=== PATIENT | male | born 1945 | race Caucasian/White ===

== ENCOUNTER → 2016-12-21 | Outpatient (CLI) | payer MEDICARE ==
--- NOTE | 2016-12-21 12:33 | CTL ---
EXAMINATION TYPE: CT Low Dose Lung DATE OF EXAM ORDERED: 12/21/2016 HISTORY: Tobacco use. Lung cancer screening CT DLP: [address] CTDI: 2.75 mGy Automated exposure control for dose reduction was used. SCREENING VISIT: Follow-up COMPARISON: 12/18/2015 TECHNIQUE: Low dose computed tomography scan was performed through the chest at 1 mm thick sections a nd reconstructed images in the coronal plane at [address] DIAGNOSTIC QUALITY: Limited, but interpretable FINDINGS: LUNG NODULES: None. LUNGS: COPD: Severity: None Fibrosis: Severity: None Lymph nodes: None Other findings: None RIGHT PLEURAL SPACE: Effusion: None Calcification: None Thickening: None Pneumothorax: None LEFT PLEURAL SPACE: Effusion: None Calcification: None Thickening: None Pneumothorax: None HEART: Heart Size: Normal Coronary calcification: Mild Pericardial effusion: None OTHER FINDINGS: Upper abdomen: Normal Bony thorax: Unremarkable Supraclavicular region: Unremarkable Other: The ascending thoracic aorta measures 3.5 cm. The main pulmonary artery at the bifurcation is 2.7 cm. IMPRESSION: No suspicious changes to suggest developing primary or metastatic lesions within the ches t. FOLLOW UP CT CHEST RECOMMENDATION: Screening lung CT per protocol CT LUNG RAD: Lung rad 1
== END | disposition home or self-care (01) ==
LOC: RADCTMAIN 11:32
PROVIDERS: ATTEND Family Medicine
DX: Z12.2 Encounter for screening for malignant neoplasm of respiratory organs (principal); F17.200 Nicotine dependence, unspecified, uncomplicated

== ENCOUNTER 2017-06-27 17:19 | Emergency (ER) | payer MEDICARE ==
[2017-06-27] MEDS ORDERED: SODIUM CHLORIDE 0.9% 1,000 ML IV STA ×2 (18:15)
--- NOTE | 2017-06-27 18:19 | ED ---
Weakness HPI - General Chief complaint: Weakness Stated complaint: LETHARGY, DIZZINESS, DIARRHEA, FEVER Time Seen by Provider: 06/27/17 18:06 Source: patient, RN notes reviewed Mode of arrival: wheelchair Limitations: no limitations - History of Present Illness Initial comments: This is a 71-year-old male who presents with complaints of 3-4 days of generalized weakness dizziness is had nausea sleeping a lot Decreased appetite he's also had again a lot of diarrhea for the past day or 2 days had elevated temperature also rhinorrhea some headache no overt cough or phlegm production he's had decreased urine output and weak stream of urine he states. No odor no dysuria. He does state he was with a large amount of people 4 days ago playing [employer] board also states he had his carotid arteries checked 3 days ago and had a headache after this he denies any focal weakness. Complaint: generalized weakness - Related Data Home Medications Medication Instructions Recorded Confirmed Atenolol [Tenormin] 50 mg PO DAILY 12/25/14 06/27/17 Multivitamin [Men's Multi-Vitamin] 1 tab PO DAILY 12/25/14 06/27/17 Aspirin EC [Ecotrin] 325 mg PO DAILY 06/27/17 06/27/17 Allergies Allergy/AdvReac Type Severity Reaction Status Date / Time No Known Allergies Allergy Verified 06/27/17 18:09 Review of Systems ROS Statement: Those systems with pertinent positive or pertinent negative responses have been documented in the HPI. ROS Other: All systems not noted in ROS Statement are negative. Past Medical History Past Medical History: Coronary Artery Disease (CAD), GI Bleed, Hypertension Additional Past Medical History / Comment(s): rectal bleeding/diverticulitis; poor circ. History of Any Multi-Drug Resistant Organisms: None Reported Additional Past Surgical History / Comment(s): hemorrhoidectomy Past Anesthesia/Blood Transfusion Reactions: No Reported Reaction Past Psychological History: No Psychological Hx Reported Smoking Status: Former smoker Past Alcohol Use History: Rare Past Drug Use History: None Reported - Past Family History Father Family Medical History: Cancer Mother Family Medical History: Cancer General Exam - General Exam Comments Initial Comments: This is a well-developed well-nourished awake alert oriented 3 male Limitations: no limitations General appearance: alert, in no apparent distress Head exam: Present: atraumatic, normocephalic, normal inspection Eye exam: Present: normal appearance, PERRL, EOMI. Absent: scleral icterus, conjunctival injection, periorbital swelling ENT exam: Present: mucous membranes dry Neck exam: Present: normal inspection. Absent: tenderness, meningismus, lymphadenopathy Respiratory exam: Present: normal lung sounds bilaterally. Absent: respiratory distress, wheezes, rales, rhonchi, stridor Cardiovascular Exam: Present: regular rate, normal rhythm, normal heart sounds. Absent: systolic murmur, diastolic murmur, rubs, gallop, clicks GI/Abdominal exam: Present: soft, normal bowel sounds. Absent: distended, tenderness, guarding, rebound, rigid Extremities exam: Present: normal inspection, full ROM, normal capillary refill. Absent: tenderness, pedal edema, joint swelling, calf tenderness Back exam: Present: normal inspection Neurological exam: Present: alert, oriented X3, CN II-XII intact Psychiatric exam: Present: normal affect, normal mood Skin exam: Present: warm, dry, intact, normal color. Absent: rash Course Vital Signs 06/27/17 06/27/17 06/27/17 17:53 18:29 19:21 Temperature 98.2 F Pulse Rate 62 78 83 Respiratory 20 16 18 Rate Blood Pressure 195/88 156/72 152/70 O2 Sat by Pulse 95 94 L 94 L Oximetry 06/27/17 06/27/17 06/27/17 20:07 21:16 22:31 Temperature 97.9 F Pulse Rate 77 83 78 Respiratory 18 18 16 Rate Blood Pressure 177/79 155/72 146/71 O2 Sat by Pulse 98 96 95 Oximetry EKG Findings - EKG Results: EKG: interpreted by KATT, sinus rhythm (Sinus rhythm with sinus arrhythmia rate was 72. Interval 170 QRS duration 80 daily since QTC of 394/431 moderate voltage criteria for LVH no acute ST-T wave changes.) Medical Decision Making - Medical Decision Making I did discuss findings with patient has patient does not want be admitted though he was offered admission. Patient will be discharge is follow-up with his doctor return when necessary presentation is consistent with a viral infection and dehydration. - Lab Data Result diagrams: 06/27/17 18:30 06/27/17 18:30 Lab Results 06/27/17 06/27/17 06/27/17 Range/Units 18:22 18:30 18:30 WBC 3.6 L (3.8-10.6) k/uL RBC 4.57 (4.30-5.90) m/uL Hgb 14.4 (13.0-17.5) gm/dL Hct 42.8 (39.0-53.0) % MCV 93.6 (80.0-100.0) fL MCH 31.5 (25.0-35.0) pg MCHC 33.6 (31.0-37.0) g/dL RDW 13.1 (11.5-15.5) % Plt Count 180 (150-450) k/uL Neutrophils % 54 % Lymphocytes % 30 % Monocytes % 10 % Eosinophils % 1 % Basophils % 1 % Neutrophils # 1.9 (1.3-7.7) k/uL Lymphocytes # 1.1 (1.0-4.8) k/uL Monocytes # 0.4 (0-1.0) k/uL Eosinophils # 0.1 (0-0.7) k/uL Basophils # 0.0 (0-0.2) k/uL PT (9.0-12.0) sec INR (<1.2) APTT (22.0-30.0) sec Sodium (137-145) mmol/L Potassium (3.5-5.1) mmol/L Chloride (98-107) mmol/L Carbon Dioxide (22-30) mmol/L Anion Gap mmol/L BUN (9-20) mg/dL Creatinine (0.66-1.25) mg/dL Est GFR (CKD-EPI)AfAm (>60 ml/min/1.73 sqM) Est GFR (CKD-EPI)NonAf (>60 ml/min/1.73 sqM) Glucose (74-99) mg/dL Plasma Lactic Acid Dominick (0.7-2.0) mmol/L Calcium (8.4-10.2) mg/dL Magnesium (1.6-2.3) mg/dL Total Bilirubin (0.2-1.3) mg/dL AST (17-59) U/L ALT (21-72) U/L Alkaline Phosphatase (38-126) U/L Total Creatine Kinase 31 L (55-170) U/L CK-MB (CK-2) <0.2 (0.0-2.4) ng/mL CK-MB (CK-2) Rel Index Troponin I <0.012 (0.000-0.034) ng/mL Total Protein (6.3-8.2) g/dL Albumin (3.5-5.0) g/dL Amylase (30-110) U/L Lipase (23-300) U/L Urine Color Urine Appearance (Clear) Urine pH (5.0-8.0) Ur Specific [place] (1.001-1.035) Urine Protein (Negative) Urine Glucose (UA) (Negative) Urine Ketones (Negative) Urine Blood (Negative) Urine Nitrite (Negative) Urine Bilirubin (Negative) Urine Urobilinogen (<2.0) mg/dL Ur Leukocyte Esterase (Negative) Urine RBC (0-5) /hpf Urine WBC (0-5) /hpf Hyaline Casts (0-2) /lpf Granular Casts (0) /lpf Urine Mucus (None) /hpf Influenza Type A RNA Not Detected (Not Detectd) Influenza Type B (PCR) Not Detected (Not Detectd) 06/27/17 06/27/17 06/27/17 Range/Units 18:30 18:30 18:30 WBC (3.8-10.6) k/uL RBC (4.30-5.90) m/uL Hgb (13.0-17.5) gm/dL Hct (39.0-53.0) % MCV (80.0-100.0) fL MCH (25.0-35.0) pg MCHC (31.0-37.0) g/dL RDW (11.5-15.5) % Plt Count (150-450) k/uL Neutrophils % % Lymphocytes % % Monocytes % % Eosinophils % % Basophils % % Neutrophils # (1.3-7.7) k/uL Lymphocytes # (1.0-4.8) k/uL Monocytes # (0-1.0) k/uL Eosinophils # (0-0.7) k/uL Basophils # (0-0.2) k/uL PT 10.5 (9.0-12.0) sec INR 1.1 (<1.2) APTT 27.8 (22.0-30.0) sec Sodium 139 (137-145) mmol/L Potassium 3.8 (3.5-5.1) mmol/L Chloride 100 (98-107) mmol/L Carbon Dioxide 25 (22-30) mmol/L Anion Gap 14 mmol/L BUN 14 (9-20) mg/dL Creatinine 0.70 (0.66-1.25) mg/dL Est GFR (CKD-EPI)AfAm >90 (>60 ml/min/1.73 sqM) Est GFR (CKD-EPI)NonAf >90 (>60 ml/min/1.73 sqM) Glucose 194 H (74-99) mg/dL Plasma Lactic Acid Dominick 1.6 (0.7-2.0) mmol/L Calcium 9.6 (8.4-10.2) mg/dL Magnesium 1.7 (1.6-2.3) mg/dL Total Bilirubin 0.7 (0.2-1.3) mg/dL AST 46 (17-59) U/L ALT 52 (21-72) U/L Alkaline Phosphatase 60 (38-126) U/L Total Creatine Kinase (55-170) U/L CK-MB (CK-2) (0.0-2.4) ng/mL CK-MB (CK-2) Rel Index Troponin I (0.000-0.034) ng/mL Total Protein 7.5 (6.3-8.2) g/dL Albumin 3.8 (3.5-5.0) g/dL Amylase 51 (30-110) U/L Lipase 51 (23-300) U/L Urine Color Urine Appearance (Clear) Urine pH (5.0-8.0) Ur Specific [place] (1.001-1.035) Urine Protein (Negative) Urine Glucose (UA) (Negative) Urine Ketones (Negative) Urine Blood (Negative) Urine Nitrite (Negative) Urine Bilirubin (Negative) Urine Urobilinogen (<2.0) mg/dL Ur Leukocyte Esterase (Negative) Urine RBC (0-5) /hpf Urine WBC (0-5) /hpf Hyaline Casts (0-2) /lpf Granular Casts (0) /lpf Urine Mucus (None) /hpf Influenza Type A RNA (Not Detectd) Influenza Type B (PCR) (Not Detectd) 06/27/17 Range/Units 20:04 WBC (3.8-10.6) k/uL RBC (4.30-5.90) m/uL Hgb (13.0-17.5) gm/dL Hct (39.0-53.0) % MCV (80.0-100.0) fL MCH (25.0-35.0) pg MCHC (31.0-37.0) g/dL RDW (11.5-15.5) % Plt Count (150-450) k/uL Neutrophils % % Lymphocytes % % Monocytes % % Eosinophils % % Basophils % % Neutrophils # (1.3-7.7) k/uL Lymphocytes # (1.0-4.8) k/uL Monocytes # (0-1.0) k/uL Eosinophils # (0-0.7) k/uL Basophils # (0-0.2) k/uL PT (9.0-12.0) sec INR (<1.2) APTT (22.0-30.0) sec Sodium (137-145) mmol/L Potassium (3.5-5.1) mmol/L Chloride (98-107) mmol/L Carbon Dioxide (22-30) mmol/L Anion Gap mmol/L BUN (9-20) mg/dL Creatinine (0.66-1.25) mg/dL Est GFR (CKD-EPI)AfAm (>60 ml/min/1.73 sqM) Est GFR (CKD-EPI)NonAf (>60 ml/min/1.73 sqM) Glucose (74-99) mg/dL Plasma Lactic Acid Dominick (0.7-2.0) mmol/L Calcium (8.4-10.2) mg/dL Magnesium (1.6-2.3) mg/dL Total Bilirubin (0.2-1.3) mg/dL AST (17-59) U/L ALT (21-72) U/L Alkaline Phosphatase (38-126) U/L Total Creatine Kinase (55-170) U/L CK-MB (CK-2) (0.0-2.4) ng/mL CK-MB (CK-2) Rel Index Troponin I (0.000-0.034) ng/mL Total Protein (6.3-8.2) g/dL Albumin (3.5-5.0) g/dL Amylase (30-110) U/L Lipase (23-300) U/L Urine Color Yellow Urine Appearance Clear (Clear) Urine pH 5.5 (5.0-8.0) Ur Specific [place] 1.021 (1.001-1.035) Urine Protein 1+ H (Negative) Urine Glucose (UA) 4+ H (Negative) Urine Ketones Negative (Negative) Urine Blood Negative (Negative) Urine Nitrite Negative (Negative) Urine Bilirubin Negative (Negative) Urine Urobilinogen <2.0 (<2.0) mg/dL Ur Leukocyte Esterase Negative (Negative) Urine RBC <1 (0-5) /hpf Urine WBC 1 (0-5) /hpf Hyaline Casts 19 H (0-2) /lpf Granular Casts 1 (0) /lpf Urine Mucus Few H (None) /hpf Influenza Type A RNA (Not Detectd) Influenza Type B (PCR) (Not Detectd) - Radiology Data Radiology results: report reviewed (I did review the imaging and report no acute findings.), image reviewed Disposition Clinical Impression: Viral syndrome, Dehydration, Enteritis Disposition: HOME SELF-CARE Condition: Good Instructions: Enteritis (ED), Dehydration (ED), Viral Syndrome (ED) Referrals: Mcihael Lopez MD [Primary Care Provider] - 1-2 days
[2017-06-27 19:27] LABS: Basophils % (A) 1 %; Eosinophils # (A) 0.1 k/uL (0-0.7); Eosinophils % (A) 1 %; HCT 42.8 % (39.0-53.0); HGB 14.4 gm/dL (13.0-17.5); Lymphocytes # (A) 1.1 k/uL (1.0-4.8); Lymphocytes % (A) 30 %; MCH 31.5 pg (25.0-35.0); MCHC 33.6 g/dL (31.0-37.0); MCV 93.6 fL (80.0-100.0); Mean Platelet Volume 7.3; Monocytes # (A) 0.4 k/uL (0-1.0); Monocytes % (A) 10 %; Neutrophils # (A) 1.9 k/uL (1.3-7.7); Neutrophils % (A) 54 %; Platelet Count 180 k/uL (150-450); RBC 4.57 m/uL (4.30-5.90); RDW 13.1 % (11.5-15.5); WBC 3.6 k/uL (3.8-10.6)
[2017-06-27 19:32] LABS: ALT 52 U/L (21-72); AST 46 U/L (17-59); Albumin 3.8 g/dL (3.5-5.0); Alkaline Phosphatase 60 U/L (38-126); Amylase 51 U/L (30-110); Anion Gap 14 mmol/L; Blood Urea Nitrogen 14 mg/dL (9-20); Calcium 9.6 mg/dL (8.4-10.2); Carbon Dioxide 25 mmol/L (22-30); Chloride 100 mmol/L (98-107); Glucose 194 mg/dL (74-99); Lipase 51 U/L (23-300); Magnesium 1.7 mg/dL (1.6-2.3); Potassium 3.8 mmol/L (3.5-5.1); Sodium 139 mmol/L (137-145); Total Bilirubin 0.7 mg/dL (0.2-1.3); Total Protein 7.5 g/dL (6.3-8.2)
[2017-06-27 19:40] LABS: Creatine Kinase 31 U/L (55-170)
--- NOTE | 2017-06-27 19:49 | XR ---
EXAMINATION TYPE: XR chest 2V DATE OF EXAM: 06/27/2017 COMPARISON: NONE HISTORY: Weakness TECHNIQUE: Frontal and lateral views of the chest are obtained. FINDINGS: Heart and mediastinum are normal. Lungs are clear. Diaphragm is normal. Bony thorax appear s intact. IMPRESSION: Normal chest
[2017-06-27 19:53] LABS: Creatine Kinase MB <0.2 ng/mL (0.0-2.4); Troponin I <0.012 ng/mL (0.000-0.034)
[2017-06-27 20:10] LABS: INR 1.1 (<1.2); Partial Thromboplastin Time 27.8 sec (22.0-30.0); Prothrombin Time 10.5 sec (9.0-12.0)
[2017-06-27 20:11] VITALS: TEMP 97.9
[2017-06-27 20:20] LABS: Appearance,Urine Clear (Clear); Bilirubin,Urine Negative (Negative); Blood,Urine Negative (Negative); Color,Urine Yellow; Glucose,Urine (UA) 4+ (Negative); Granular Casts,Urine 1 /lpf (0); Hyaline Casts,Urine 19 /lpf (0-2); Ketones,Urine Negative (Negative); Leukocyte Esterase,Urine Negative (Negative); Mucus,Urine Few /hpf; Nitrite,Urine Negative (Negative); PH, Urine 5.5 (5.0-8.0); Protein,Urine 1+ (Negative); RBC,Urine <1 /hpf (0-5); Specific Gravity,Urine 1.021 (1.001-1.035); Urobilinogen,Urine <2.0 mg/dL (<2.0); WBC,Urine 1 /hpf (0-5)
[2017-06-27 22:32] VITALS: BP 146/71; PULSE 78; RESP 16
== END 2017-06-27 23:14 | disposition home or self-care (01) ==
LOC: EC 17:19
DX: B34.9 Viral infection, unspecified (principal); E86.0 Dehydration; K52.9 Noninfective gastroenteritis and colitis, unspecified; I10 Essential (primary) hypertension; Z87.891 Personal history of nicotine dependence; Z79.82 Long term (current) use of aspirin; Z79.899 Other long term (current) drug therapy
CPT/HCPCS: 36415; 71046; 80053; 81001; 82150; 82550; 82553; 83605; 83690; 83735; 84484; 85025; 85610; 85730; 87502; 93005; 96360; 96361; 99285

== ENCOUNTER → 2017-09-22 | Outpatient (CLI) | payer MEDICARE ==
--- NOTE | 2017-09-22 12:17 | CONS ---
CONSULTATION DATE OF SERVICE: 09/22/2017 A 72-year-old gentleman has been evaluated in the sleep center for possible obstructive sleep apnea-hypopnea syndrome. HISTORY OF PRESENT ILLNESS/SLEEP WAKE EVALUATION: Patient usual sleep schedule from 11:30 p.m. to 7:30 am, 7 days a week without significant problem with falling asleep, although he has TV set in bedroom. He sleeps on the side position. He prefers not to sleep on the back position with his . Occasionally, he may have snoring. He wakes up from sleep once with nocturia. [place] Sleepiness Scale is 3. 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 History of episodes of chest pain after physical exercise, not recently. PAST SURGICAL HISTORY: Hemorrhoidectomy, stent insertion to left femoral artery about 20 years ago. MEDICATIONS: Atenolol, aspirin. SOCIAL HISTORY: Positive for smoking for about 52 pack years, quit about 5 years ago. Alcohol consumption occasional, beer. FAMILY HISTORY: Hypertension, cancer. PHYSICAL EXAM: A 72-year-old gentleman without distress. BP 143/60, HR 58, RR 16, height 5, 10, weight 212, BMI 30.3. Neck 15-1/2 inches in circumference. Temperature 96.9. Oxygen saturation at room air 98%. OROPHARYNX: Moderately low position of soft palate. Slight restriction of nasal breathing. ABDOMEN: Slightly obese, soft, nontender. EXTREMITIES: Minimal up to 1+ ankle edema. Neck Supple, no JVD. Thyroid is not palpable. LUNGS Clear to percussion and to auscultation. Good air exchange. No wheezing or rhonchi. HEART S1, S2 regular. No murmurs, gallops, or rubs. [employer] Awake, alert, and oriented X3. Cranial nerves 2 to 7 intact. There is no fasciculation or atrophy. noted. No focal deficits observed. IMPRESSION: 1. Awakenings from sleep with nocturia, moderately low position of soft palate, episodes of snoring. Patient prefers to sleep on the side. Possible obstructive sleep apnea-hypopnea syndrome. 2. Mild obesity, body mass index 30.3. 3. Hypertension. 4. History of narrowing of left carotid artery. 5. Status post stent insertion to left femoral artery. 6. History of prior smoking for about 52 pack years, quit about 5 years ago. 7. Status post hemorrhoidectomy. PLAN: 1. Polysomnography for evaluation of patient's breathing during sleep. 2. Preferable position during sleep on the side. 3. No driving if patient feels any sleepiness. 4. I will see patient for follow up visit to explain results of testing and following plan. Thank you very much for referring this patient for consultation. Sincerely, Wade So MD, PhD, FAASM Diplomat of [place] [employer] [place] [employer] Engine Test Cell Technician of [facility] [place] MMODL / RENAN: [id number] /
== END | disposition home or self-care (01) ==
LOC: SLEEP 10:31
PROVIDERS: ATTEND Family Medicine
DX: R35.1 Nocturia (principal); R06.83 Snoring; I10 Essential (primary) hypertension; Z86.79 Personal history of other diseases of the circulatory system; Z95.0 Presence of cardiac pacemaker; Z68.30 Body mass index [BMI] 30.0-30.9, adult; Z87.891 Personal history of nicotine dependence; Z90.89 Acquired absence of other organs; Z79.899 Other long term (current) drug therapy; Z79.82 Long term (current) use of aspirin
CPT/HCPCS: 99211

== ENCOUNTER 2020-08-14 09:21 | Day surgery (SDC) | payer MEDICARE ==
[2020-08-12 15:40] VITALS: BMI 23.7
[~2020-08-14 09:21] MED LIST: LACTATED RINGERS 1,000 ML IV SCH
[2020-08-14] MEDS ORDERED: LACTATED RINGERS 1,000 ML IV ONE ×2 (11:00)
[2020-08-14 11:10] VITALS: TEMP 97
[2020-08-14] MEDS ORDERED: LIDOCAINE 1% (10MG/ML) FOR IV START INTRADERMA ONE (11:10)
[2020-08-14 11:11] LABS: Glucose,Whole Blood 105 mg/dL (75-99)
--- NOTE | 2020-08-14 11:45 | P.GSHP ---
History of Present Illness H&P Date: 08/14/20 Chief Complaint: Anemia 's is a 74-year-old male presents today for colonoscopy. Patient has a previous history of diverticulitis and hemorrhoids. His last colonoscopy was 2014. Patient's had previous intermittent rectal bleeding. Past Medical History Past Medical History: Coronary Artery Disease (CAD), Diabetes Mellitus, GI Bleed, Hyperlipidemia, Hypertension Additional Past Medical History / Comment(s): rectal bleeding/diverticulitis; poor circ. slight blockage carotid arteries. History of Any Multi-Drug Resistant Organisms: None Reported Additional Past Surgical History / Comment(s): hemorrhoidectomy, colonoscopy. Past Anesthesia/Blood Transfusion Reactions: No Reported Reaction Smoking Status: Former smoker - Past Family History Father Family Medical History: Cancer Mother Family Medical History: Cancer Medications and Allergies Home Medications Medication Instructions Recorded Confirmed Type Multivitamin [Men's Multi-Vitamin] 1 tab PO DAILY 12/25/14 08/14/20 History Aspirin EC [Ecotrin] 325 mg PO DAILY 06/27/17 08/14/20 History Atorvastatin [Lipitor] 40 mg PO HS 08/12/20 08/14/20 History Cholecalciferol [Vitamin D3 (10 10 mcg PO DAILY 08/12/20 08/14/20 History Mcg = 400 Iu)] Pioglitazone [Actos] 30 mg PO DAILY 08/12/20 08/14/20 History lisinopriL [Zestril] 5 mg PO DAILY 08/12/20 08/14/20 History metFORMIN HCL 1,000 mg PO BID 08/12/20 08/14/20 History Allergies Allergy/AdvReac Type Severity Reaction Status Date / Time No Known Allergies Allergy Verified 08/14/20 11:06 Surgical - Exam Vital Signs Temp Pulse Resp BP Pulse Ox 97.0 F L 89 16 192/78 100 08/14/20 11:07 08/14/20 11:07 08/14/20 11:07 08/14/20 11:07 08/14/20 11:07 - General well developed, well nourished, no distress - Eyes PERRL - ENT normal pinna - Neck no masses - Respiratory normal expansion - Cardiovascular Rhythm: regular - Abdomen Abdomen: soft, non tender Results - Labs Abnormal Lab Results - Last 24 Hours (Table) 08/14/20 Range/Units 11:09 POC Glucose (mg/dL) 105 H (75-99) mg/dL Assessment and Plan Assessment: Anemia, intermittent rectal bleeding. We'll perform colonoscopy
--- NOTE | 2020-08-14 12:02 | P.OP ---
Date of Procedure: 08/14/20 Preoperative Diagnosis: GI bleed Postoperative Diagnosis: Internal and external hemorrhoids Procedure(s) Performed: Colonoscopy Anesthesia: MAC Surgeon: Jose Francisco Renee Pathology: none sent Condition: stable Disposition: PACU Description of Procedure: The patient's placed on the endoscopy table in the lateral position. He received IV sedation. Digital rectal exam was performed which revealed internal and external hemorrhoids. Flexible colonoscope was then placed patient anus and passed throughout the entire colon. The ileocecal valve not visualized. The patient had a large amount of liquid stool the colon which limited the view of the right colon. At this point scope withdrawn. The transverse colon and descending colon appeared normal. In the sigmoid colon there is extensive diverticular changes. The scope was brought back the rectum and this appeared normal. The withdrawn for patient. He had some bleeding from his internal and external hemorrhoids. Is present the patient's bleeding is due to hemorrhoids
[2020-08-14 12:32] VITALS: BP 112/78; PULSE 75; RESP 17
== END 2020-08-14 13:10 | disposition home or self-care (01) ==
LOC: ORWHC2ENDO 09:21
PROVIDERS: ATTEND Surgery
DX: K64.4 Residual hemorrhoidal skin tags (principal); K64.8 Other hemorrhoids; D64.9 Anemia, unspecified; I25.10 Atherosclerotic heart disease of native coronary artery without angina pectoris; I10 Essential (primary) hypertension; E11.9 Type 2 diabetes mellitus without complications; E78.5 Hyperlipidemia, unspecified; Z79.82 Long term (current) use of aspirin; Z79.84 Long term (current) use of oral hypoglycemic drugs; Z79.899 Other long term (current) drug therapy; Z80.9 Family history of malignant neoplasm, unspecified; Z87.891 Personal history of nicotine dependence
CPT/HCPCS: 45378

== ENCOUNTER 2020-09-01 13:32 | Inpatient (IN) | payer MEDICARE ==
[2020-09-01 14:39] LABS: Basophils % (A) 0 %; Eosinophils # (A) 0.1 k/uL (0-0.7); Eosinophils % (A) 1 %; HCT 36.5 % (39.0-53.0); HGB 12.3 gm/dL (13.0-17.5); Lymphocytes # (A) 1.7 k/uL (1.0-4.8); Lymphocytes % (A) 32 %; MCH 31.7 pg (25.0-35.0); MCHC 33.8 g/dL (31.0-37.0); MCV 93.8 fL (80.0-100.0); Mean Platelet Volume 7.2; Monocytes # (A) 0.3 k/uL (0-1.0); Monocytes % (A) 5 %; Neutrophils # (A) 3.1 k/uL (1.3-7.7); Neutrophils % (A) 59 %; Platelet Count 316 k/uL (150-450); RBC 3.89 m/uL (4.30-5.90); RDW 13.3 % (11.5-15.5); WBC 5.2 k/uL (3.8-10.6)
--- NOTE | 2020-09-01 14:40 | ED ---
Skin/Abscess/FB HPI - General Chief complaint: Skin/Abscess/Foreign Body Stated complaint: Lft foot infection Time Seen by Provider: 09/01/20 13:51 Source: patient, RN notes reviewed Mode of arrival: ambulatory Limitations: no limitations - History of Present Illness Initial comments: Patient is a 74-year-old male that presents to the emergency department with a left great toe diabetic foot infection. He was recently seen at [facility] [place] by Dr. Jame Queen. They note that they referred him to one of the facilities that he has privileges at that noted that [facility] [place] closer to home and that they would prefer to come here. Upon his follow-up visit today x-ray noted radiographic changes consistent with osteomye litis. He has cellulitis extending proximal to the left first MPJ. The wound is located at the distal aspect of the left hallux that probes directly to the bone per Dr. Lopez. Dr. Mark referred them to the emergency department for further workup and advised him on the need for labs, vascular evaluation as well as the risk of dictation. Patient stated that he has 3 days left of his oral antibiotics and has been cleaning and covering his wound and clean dry dressings and cream. Patient denied any foul odor, extreme tenderness, decreased sensation in bilateral lower extremities, chest pain shortness of breath headache nausea vomiting diarrhea constipation fever fatigue chills. - Related Data Home Medications Medication Instructions Recorded Confirmed Multivitamin [Men's Multi-Vitamin] 1 tab PO DAILY 12/25/14 08/14/20 Aspirin EC [Ecotrin] 325 mg PO DAILY 06/27/17 08/14/20 Atorvastatin [Lipitor] 40 mg PO HS 08/12/20 08/14/20 Cholecalciferol [Vitamin D3 (10 10 mcg PO DAILY 08/12/20 08/14/20 Mcg = 400 Iu)] Pioglitazone [Actos] 30 mg PO DAILY 08/12/20 08/14/20 lisinopriL [Zestril] 5 mg PO DAILY 08/12/20 08/14/20 metFORMIN HCL 1,000 mg PO BID 08/12/20 08/14/20 Allergies Allergy/AdvReac Type Severity Reaction Status Date / Time No Known Allergies Allergy Verified 09/01/20 13:43 Review of Systems ROS Statement: Those systems with pertinent positive or pertinent negative responses have been documented in the HPI. ROS Other: All systems not noted in ROS Statement are negative. Past Medical History Past Medical History: Coronary Artery Disease (CAD), Diabetes Mellitus, GI Bleed, Hyperlipidemia, Hypertension Additional Past Medical History / Comment(s): rectal bleeding/diverticulitis; poor circ. slight blockage carotid arteries. History of Any Multi-Drug Resistant Organisms: None Reported Additional Past Surgical History / Comment(s): hemorrhoidectomy, colonoscopy. Past Anesthesia/Blood Transfusion Reactions: No Reported Reaction Past Psychological History: No Psychological Hx Reported Smoking Status: Former smoker Past Alcohol Use History: Occasional Past Drug Use History: None Reported - Past Family History Father Family Medical History: Cancer Mother Family Medical History: Cancer General Exam Limitations: no limitations General appearance: alert, in no apparent distress Head exam: Present: atraumatic, normocephalic, normal inspection Eye exam: Present: normal appearance, PERRL, EOMI. Absent: scleral icterus, conjunctival injection, periorbital swelling Neck exam: Present: normal inspection Respiratory exam: Present: normal lung sounds bilaterally. Absent: respiratory distress, wheezes, rales, rhonchi, stridor Cardiovascular Exam: Present: regular rate, normal rhythm, normal heart sounds. Absent: systolic murmur, diastolic murmur, rubs, gallop, clicks GI/Abdominal exam: Present: soft, normal bowel sounds. Absent: distended, tenderness, guarding, rebound, rigid Extremities exam: Present: normal inspection, full ROM, normal capillary refill. Absent: tenderness, pedal edema, joint swelling, calf tenderness Left Foot/Toe exam: Present: full ROM, tenderness (While), swelling (Left great toe). Absent: normal inspection (Patient has a distal left hallux wound that appears freshly debrided. Was covered in a clean dry dressing but was removed for examination.), abrasion, laceration Neurological exam: Present: alert, oriented X3, CN II-XII intact Psychiatric exam: Present: normal affect, normal mood Skin exam: Present: warm, dry, intact, normal color. Absent: rash Course Vital Signs 09/01/20 13:40 Temperature 97.8 F Pulse Rate 73 Respiratory 18 Rate Blood Pressure 96/55 O2 Sat by Pulse 99 Oximetry Medical Decision Making - Medical Decision Making 34-year-old male presenting with left hallux diabetic wound with x-ray findings consistent with osteomyelitis referred by foot and ankle specialist. Labs, left toes x-ray ordered. Labs unremarkable. X-ray shows changes consistent with osteomyelitis. Case discussed with Dr. Vera, patient will be admitted to inpatient. Dr. Lopez was consulted and will accept the admit with vascular and infectious disease on consult. - Lab Data Result diagrams: 09/01/20 14:31 09/01/20 14:31 Lab Results 09/01/20 09/01/20 09/01/20 Range/Units 14:31 14:31 14:31 WBC 5.2 (3.8-10.6) k/uL RBC 3.89 L (4.30-5.90) m/uL Hgb 12.3 L (13.0-17.5) gm/dL Hct 36.5 L (39.0-53.0) % MCV 93.8 (80.0-100.0) fL MCH 31.7 (25.0-35.0) pg MCHC 33.8 (31.0-37.0) g/dL RDW 13.3 (11.5-15.5) % Plt Count 316 (150-450) k/uL MPV 7.2 Neutrophils % 59 % Lymphocytes % 32 % Monocytes % 5 % Eosinophils % 1 % Basophils % 0 % Neutrophils # 3.1 (1.3-7.7) k/uL Lymphocytes # 1.7 (1.0-4.8) k/uL Monocytes # 0.3 (0-1.0) k/uL Eosinophils # 0.1 (0-0.7) k/uL Basophils # 0.0 (0-0.2) k/uL ESR 90 H (0-15) mm/hr PT 11.3 (9.0-12.0) sec INR 1.1 (<1.2) APTT 27.2 (22.0-30.0) sec Sodium 138 (137-145) mmol/L Potassium 4.2 (3.5-5.1) mmol/L Chloride 106 (98-107) mmol/L Carbon Dioxide 23 (22-30) mmol/L Anion Gap 9 mmol/L BUN 20 (9-20) mg/dL Creatinine 0.78 (0.66-1.25) mg/dL Est GFR (CKD-EPI)AfAm >90 (>60 ml/min/1.73 sqM) Est GFR (CKD-EPI)NonAf 88 (>60 ml/min/1.73 sqM) Glucose 146 H (74-99) mg/dL Calcium 9.3 (8.4-10.2) mg/dL Total Bilirubin 0.4 (0.2-1.3) mg/dL AST 43 (17-59) U/L ALT 49 (4-49) U/L Alkaline Phosphatase 78 (38-126) U/L C-Reactive Protein 1.3 H (<1.0) mg/dL Total Protein 6.9 (6.3-8.2) g/dL Albumin 3.5 (3.5-5.0) g/dL - Radiology Data Radiology results: report reviewed, image reviewed Left great toe x-ray findings consistent with osteomyelitis first digit left foot Disposition Clinical Impression: Osteomyelitis of great toe of left foot Disposition: ADMITTED IP TO THIS [facility] Condition: Stable Is patient prescribed a controlled substance at d/c from ED?: No Referrals: Michael Lopez MD [Primary Care Provider] - 1-2 days Time of Disposition: 15:54
[2020-09-01 14:49] LABS: INR 1.1 (<1.2); Partial Thromboplastin Time 27.2 sec (22.0-30.0); Prothrombin Time 11.3 sec (9.0-12.0)
[2020-09-01 14:50] LABS: Potassium 4.2 mmol/L (3.5-5.1)
[2020-09-01 14:51] LABS: ALT 49 U/L (4-49); AST 43 U/L (17-59); African American GFR (CKD) >90 (>60 ml/min/1.73 sqM); Albumin 3.5 g/dL (3.5-5.0); Alkaline Phosphatase 78 U/L (38-126); Anion Gap 9 mmol/L; Blood Urea Nitrogen 20 mg/dL (9-20); C Reactive Protein 1.3 mg/dL (<1.0); Calcium 9.3 mg/dL (8.4-10.2); Carbon Dioxide 23 mmol/L (22-30); Chloride 106 mmol/L (98-107); Glucose 146 mg/dL (74-99); Non-African American GFR(CKD) 88 (>60 ml/min/1.73 sqM); Sodium 138 mmol/L (137-145); Total Bilirubin 0.4 mg/dL (0.2-1.3); Total Protein 6.9 g/dL (6.3-8.2)
--- NOTE | 2020-09-01 15:15 | XR ---
Great toe left foot HISTORY: Diabetes, nonhealing wound 3 views of the first digit left foot There is soft tissue defect and swelling at the first digit of the left foot, there is bone erosion, flake-like calcific density present within the soft tissues. No dislocation. IMPRESSION: Findings consistent with osteomyelitis first digit left foot
[2020-09-01 15:38] LABS: Erythrocyte Sedimentation Rate 90 mm/hr (0-15)
[2020-09-01] MEDS ORDERED: VANCOMYCIN IV PER PHARMACY 1 EACH MISC MISCELLANE PRN (15:45)
[2020-09-01] MEDS ORDERED: NALOXONE 0.4 MG/ML 1 ML VIAL IV PRN (15:51)
[2020-09-01] MEDS ORDERED: MORPHINE SULFATE 4 MG/ML SYRINGE IV PRN (15:51)
[2020-09-01] MEDS ORDERED: VANCOMYCIN 1,500 MG in SODIUM CHLORIDE 0.9% 250 ML IVPB STA (15:55)
[2020-09-01] MEDS: SODIUM CHLORIDE 0.9% 1,000 ML IV SCH (16:29)
[2020-09-01] MEDS: PIPERACILLIN-TAZOBACTAM 3.375 GM in SODIUM CHLORIDE 0.9% 100 ML IVPB SCH ×2 (16:29→23:24)
[2020-09-02] MEDS: SODIUM CHLORIDE 0.9% 1,000 ML IV SCH ×2 (01:51→18:38)
[2020-09-02] MEDS: VANCOMYCIN 1,500 MG in SODIUM CHLORIDE 0.9% 250 ML IVPB SCH ×2 (05:06→18:31)
[2020-09-02 06:50] LABS: Glucose,Whole Blood 110 mg/dL (75-99)
[2020-09-02] MEDS: PSYLLIUM HUSK 100% 6 GM PACKET PO SCH ×2 (07:41→17:06)
[2020-09-02] MEDS: metFORMIN 500 MG TAB PO SCH ×2 (07:41→17:06)
--- NOTE | 2020-09-02 08:05 | P.HPIM ---
History of Present Illness H&P Date: 09/02/20 Chief Complaint: Foot ulcer The patient is 74-year-old diabetic patient who has been seen by kindergarten prep teacher and an x-ray which has been consistent with ostial myelitis. No significant fever stated but the and the patient states minimal pain but because of his diabetes he is appropriately admitted for treatment of said osteomyelitis. No previous history of this. No significant nausea, vomiting or diarrhea blood sugar has been fairly stable. Review of Systems Constitutional: Denies chills, Denies fever Eyes: denies blurred vision, denies pain Ears, nose, mouth and throat: Denies headache, Denies sore throat Cardiovascular: Denies chest pain, Denies shortness of breath Respiratory: Denies cough Gastrointestinal: Denies abdominal pain, Denies diarrhea, Denies nausea, Denies vomiting Musculoskeletal: Denies myalgias Past Medical History Past Medical History: Coronary Artery Disease (CAD), Diabetes Mellitus, GI Bleed, Hyperlipidemia, Hypertension Additional Past Medical History / Comment(s): rectal bleeding/diverticulitis; poor circ. slight blockage carotid arteries. History of Any Multi-Drug Resistant Organisms: None Reported Additional Past Surgical History / Comment(s): hemorrhoidectomy, colonoscopy. Past Anesthesia/Blood Transfusion Reactions: No Reported Reaction Past Psychological History: No Psychological Hx Reported Smoking Status: Former smoker Past Alcohol Use History: Occasional Additional Past Alcohol Use History / Comment(s): Smoked for 50 years, quit 8 years ago. Past Drug Use History: None Reported - Past Family History Father Family Medical History: Cancer Mother Family Medical History: Cancer Medications and Allergies Home Medications Medication Instructions Recorded Confirmed Type Multivitamin [Men's Multi-Vitamin] 1 tab PO DAILY 12/25/14 09/01/20 History Aspirin EC [Ecotrin] 325 mg PO DAILY 06/27/17 09/01/20 History Atorvastatin [Lipitor] 40 mg PO HS 08/12/20 09/01/20 History Cholecalciferol [Vitamin D3 (10 10 mcg PO DAILY 08/12/20 09/01/20 History Mcg = 400 Iu)] Pioglitazone [Actos] 30 mg PO DAILY 08/12/20 09/01/20 History lisinopriL [Zestril] 5 mg PO DAILY 08/12/20 09/01/20 History metFORMIN HCL 1,000 mg PO BID-W/MEALS 08/12/20 09/01/20 History Ciprofloxacin HCl [Cipro] 500 mg PO Q12HR 09/01/20 09/01/20 History Psyllium Husk 100% [Metamucil 6 gm PO PC-BID 09/01/20 09/01/20 History Packet] Terbinafine [LamISIL] 250 mg PO DAILY 09/01/20 09/01/20 History Allergies Allergy/AdvReac Type Severity Reaction Status Date / Time No Known Allergies Allergy Verified 09/01/20 15:56 Physical Exam Vitals: Vital Signs Temp Pulse Pulse Resp BP BP Pulse Ox 09/02/20 07:22 97.9 F 69 18 115/57 97 09/02/20 02:00 97.7 F 65 18 135/58 96 09/01/20 20:17 82 18 144/68 98 09/01/20 20:00 97.4 F L 68 18 160/74 99 09/01/20 13:40 97.8 F 73 18 96/55 99 Intake and Output 09/01/20 09/02/20 09/02/20 22:59 06:59 14:59 Output Total 400 Balance -400 Output: Urine 400 Other: Voiding Method Toilet Urinal Weight 78.018 kg - Constitutional General appearance: cooperative, no acute distress - EENT Eyes: EOMI - Neck Neck: no lymphadenopathy - Respiratory Respiratory: bilateral: CTA - Cardiovascular Rhythm: regular Heart sounds: normal: S1, S2 Abnormal Heart Sounds: no S3 Gallop - Gastrointestinal General gastrointestinal: soft, no tenderness - Integumentary Toe ulcer Integumentary: cellulitis Results CBC & Chem 7: 09/01/20 14:31 09/01/20 14:31 Labs: Abnormal Lab Results - Last 24 Hours (Table) 09/01/20 09/01/20 09/02/20 Range/Units 14:31 14:31 06:48 RBC 3.89 L (4.30-5.90) m/uL Hgb 12.3 L (13.0-17.5) gm/dL Hct 36.5 L (39.0-53.0) % ESR 90 H (0-15) mm/hr Glucose 146 H (74-99) mg/dL POC Glucose (mg/dL) 110 H (75-99) mg/dL C-Reactive Protein 1.3 H (<1.0) mg/dL Thrombosis Risk Factor Assmnt - Choose All That Apply Each Risk Factor Represents 3 Points: Age 75 years or older Thrombosis Risk Factor Assessment Total Risk Factor Score: 3 Thrombosis Risk Factor Assessment Level: Moderate Risk Assessment and Plan (1) Diabetes Current Visit: Yes Status: Acute Code(s): E11.9 - TYPE 2 DIABETES MELLITUS WITHOUT COMPLICATIONS SNOMED Code(s): 60116894 (2) CAD (coronary artery disease) Current Visit: Yes Status: Acute Code(s): I25.10 - ATHSCL HEART DISEASE OF [place] CORONARY ARTERY W/O ANG PCTRS SNOMED Code(s): 81228937 (3) Hypertension Current Visit: Yes Status: Acute Code(s): I10 - ESSENTIAL (PRIMARY) HYPERTENSION SNOMED Code(s): 94107022 (4) Osteomyelitis of great toe of left foot Current Visit: Yes Status: Acute Code(s): M86.9 - OSTEOMYELITIS, UNSPECIFIED SNOMED Code(s): 212165900 Plan: Placed on empiric treatment. Consult infectious disease. Vascular surgery is also consulted. Reconcile medications. New patch check CBC and CMP in a.m. Prognosis is guarded.
[2020-09-02] MEDS: PIPERACILLIN-TAZOBACTAM 3.375 GM in SODIUM CHLORIDE 0.9% 100 ML IVPB SCH ×3 (08:48→23:47)
[2020-09-02] MEDS: MULTIVITAMINS, THERA 1 EACH TAB PO SCH (08:59)
[2020-09-02] MEDS: CHOLECALCIFEROL 10 MCG (400 IU) TABLET PO SCH (08:59)
[2020-09-02] MEDS: lisinopriL 5 MG TAB PO SCH (08:59)
[2020-09-02] MEDS: ASPIRIN 325 MG TAB PO SCH (08:59)
[2020-09-02] MEDS: PIOGLITAZONE 30 MG TAB PO SCH (09:00)
[2020-09-02] MEDS: TERBINAFINE 250 MG TAB PO SCH (09:00)
[2020-09-02 16:56] LABS: Glucose,Whole Blood 138 mg/dL (75-99)
[2020-09-02 20:03] LABS: Glucose,Whole Blood 127 mg/dL (75-99)
[2020-09-02] MEDS: ATORVASTATIN 40 MG TAB PO SCH (21:35)
--- NOTE | 2020-09-02 22:29 | CONS ---
CONSULTATION DATE OF SERVICE: 09/02/2020 REASON FOR CONSULTATION: Left big toe osteomyelitis. HISTORY OF PRESENT ILLNESS: The patient is a 74-year-old male who apparently did develop a left big toe infection and ended up having removal of his left big toenail. The patient also developed an ulceration on the plantar aspect of the left big toe, for which the patient has been treated in the outpatient setting by [facility]. The patient has been treated with a course of oral Cipro. He did have an evaluation by his lift truck operator with concern for the wound probing down to the bone. It is not very clear if any cultures were obtained at his office. The patient was advised to go to [facility] for admission and IV antibiotic therapy; however, the patient decided to come to [facility], as he lives close by this facility. The patient denies having any fever or any chills. The patient has been complaining of pain to the left big toe, more of a dull aching, 2 to 3 out of 10 and no radiation. Apparently the wound has decreased in size since he starting treatment by his lift truck operator. The patient denies having any fever or chills. No chest pain. No shortness of breath or cough. No nausea, no vomiting. No abdominal pain or any diarrhea. The patient since presentation to the hospital has been afebrile. The patient did have x-rays of the big toe showing cortical destruction concerning for underlying osteomyelitis and some soft tissue swelling. The patient did have a normal white count with sedimentation rate of 90. Creatinine was 0.70. CRP was 1.3. Flores PCR was negative. The patient was started on vancomycin and Zosyn and has been admitted to the hospital. Infectious Disease was consulted for further management of antibiotic therapy. REVIEW OF SYSTEMS: Positive points have been mentioned in the HPI. Rest of the systems are negative. PAST MEDICAL HISTORY: Coronary artery disease, diabetes mellitus, GI bleed, hyperlipidemia and hypertension. Rectal bleeding from diverticulitis. PAST SURGICAL HISTORY: Hemorrhoidectomy and colonoscopy. SOCIAL HISTORY: Remote history of smoking. Occasionally drinks. No drug use. FAMILY HISTORY: Both parents with a history of cancer. ALLERGIES: NO KNOWN DRUG ALLERGIES. MEDICATIONS: The patient is currently on aspirin, Lipitor, vitamin D3, Zestril, Glucophage, morphine sulfate, Theragran, Narcan, Actos, Zosyn, Lamisil and vancomycin, Pharmacy to dose. PHYSICAL EXAMINATION: Blood pressure 137/73 with a pulse of 62, temperature 97.8. He is 98% on room air. General description is an elderly male lying in bed in no distress. No tachypnea or accessory muscle of respiration use. HEENT: Examination shows slight pallor. No scleral icterus. Oral mucous membrane is dry. NECK: Trachea is central. No thyromegaly. LUNGS: Unlabored breathing. Clear to auscultation anteriorly. No wheeze or crackle. HEART: S1, S2. Regular rate and rhythm. ABDOMEN: Soft. No tenderness. No guarding or rigidity. EXTREMITIES: No edema of the feet. Examination of left big toe reveals minimal swelling and redness. Did have a superficial ulceration on the left big toe, which seems to be already drying out. Neurologically the patient is awake, alert, oriented x3. Mood and affect normal. LABS: Hemoglobin is 12.8, white count 5.2. Sed rate of 90. BUN 20, creatinine 0.78. X-rays show evidence of cortical destruction suspicious for osteomyelitis. DIAGNOSTIC IMPRESSION AND PLAN: Patient with left big toe diabetic foot infection and ulceration in this patient whose symptoms have been going on for more than a month now. Apparently the patient did have a wound that was probing down to the bone with evidence of cortical destruction, elevated sed rate, likely osteomyelitis, failing outpatient oral Cipro therapy. PLAN: 1. Will try to obtain any culture that may have been obtained by his lift truck operator while he was probing his bone, as that will help his discharge antibiotic therapy. 2. Will keep the patient on vancomycin but discontinue Zosyn to decrease the risk of nephrotoxicity, and add Unasyn. 3. Discharge antibiotic based on culture report. 4. Will follow his clinical condition and further adjust medication if needed. Thank you for this consultation. Will follow this patient along with you. MMODL / IJN: [id number] / WANDA
--- NOTE | 2020-09-02 23:23 | CONS ---
CONSULTATION This is a 74-year-old gentleman, well known to my office. The patient has been admitted with history of callus on the left big toe and x-ray showed osteomyelitis. The patient has no history of trauma. MEDICAL HISTORY: History of diabetes, history of carotid stenosis. PHYSICAL EXAMINATION: NECK: Supple. Trachea central. CHEST: Clear to auscultation. ABDOMEN: Soft. Femorals are 1+ bilaterally. PT and DP by the Doppler. Patient has some on brown induration on the left lower extremity. Left big toe has a small callus. No discharge or redness noted. Patient is under the care of Infectious Disease for antibiotic. At this point, we will wait for infectious disease recommendation. Continue with IV antibiotic. Possibly may need MRI to confirm the osteomyelitis. Will follow with you. MMODL / IJN: [id number] /
[2020-09-03 07:31] LABS: Glucose,Whole Blood 95 mg/dL (75-99)
[2020-09-03] MEDS: VANCOMYCIN 1,500 MG in SODIUM CHLORIDE 0.9% 250 ML IVPB SCH ×2 (07:36→18:23)
--- NOTE | 2020-09-03 08:22 | P.PN ---
Subjective Principal diagnosis: Foot infection This is a history and physical and a 74-year-old white male essentially admitted for osteomyelitis. The patient has had appropriate consultation and is now receiving vancomycin. Appreciate ID and vascular surgery input. Question need for MRI. Objective - Vital Signs Vital signs: Vital Signs Temp 97.5 F L 09/03/20 08:14 Pulse 65 09/03/20 08:14 Resp 18 09/03/20 08:14 BP 153/76 09/03/20 08:14 Pulse Ox 95 09/03/20 08:14 Intake & Output 09/02/20 09/03/20 09/03/20 18:59 06:59 18:59 Other: Voiding Method Toilet Indwelling Catheter Urinal # Voids 1 1 - Constitutional General appearance: Present: average body habitus - EENT Eyes: Absent: abnormal pupil - Neck Neck: Absent: lymphadenopathy - Respiratory Respiratory: bilateral: CTA - Cardiovascular Rhythm: regular Heart sounds: normal: S1, S2 Abnormal Heart Sounds: Absent: S3 Gallop - Gastrointestinal General gastrointestinal: Present: soft. Absent: tenderness - Integumentary Integumentary: Present: cellulitis - Neurologic Neurologic: Absent: CNII-XII intact - Labs CBC & Chem 7: 09/01/20 14:31 09/01/20 14:31 Labs: Abnormal Lab Results - Last 24 Hours (Table) 09/02/20 09/02/20 Range/Units 16:55 20:01 POC Glucose (mg/dL) 138 H 127 H (75-99) mg/dL Assessment and Plan (1) Diabetes Current Visit: Yes Status: Acute Code(s): E11.9 - TYPE 2 DIABETES MELLITUS W ITHOUT COMPLICATIONS SNOMED Code(s): 46672896 (2) CAD (coronary artery disease) Current Visit: Yes Status: Acute Code(s): I25.10 - ATHSCL HEART DISEASE OF [place] CORONARY ARTERY W/O ANG PCTRS SNOMED Code(s): 19833334 (3) Hypertension Current Visit: Yes Status: Acute Code(s): I10 - ESSENTIAL (PRIMARY) HYPERTENSION SNOMED Code(s): 66204374 (4) Osteomyelitis of great toe of left foot Current Visit: Yes Status: Acute Code(s): M86.9 - OSTEOMYELITIS, UNSPECIFIED SNOMED Code(s): 384688099 Plan: Placed on empiric treatment. Continue vancomycin. Appreciate multiple consultants input. Check CBC and CMP in a.m.
[2020-09-03] MEDS: PIPERACILLIN-TAZOBACTAM 3.375 GM in SODIUM CHLORIDE 0.9% 100 ML IVPB SCH (09:06)
[2020-09-03] MEDS: metFORMIN 500 MG TAB PO SCH ×2 (09:11→17:12)
[2020-09-03] MEDS: PSYLLIUM HUSK 100% 6 GM PACKET PO SCH ×2 (09:11→17:12)
[2020-09-03] MEDS: MULTIVITAMINS, THERA 1 EACH TAB PO SCH (09:12)
[2020-09-03] MEDS: PIOGLITAZONE 30 MG TAB PO SCH (09:12)
[2020-09-03] MEDS: TERBINAFINE 250 MG TAB PO SCH (09:12)
[2020-09-03] MEDS: lisinopriL 5 MG TAB PO SCH (09:12)
[2020-09-03] MEDS: CHOLECALCIFEROL 10 MCG (400 IU) TABLET PO SCH (09:12)
[2020-09-03] MEDS: ASPIRIN 325 MG TAB PO SCH (09:12)
[2020-09-03 09:57] LABS: HCT 32.7 % (39.6-50.0); HGB 10.4 g/dL (13.0-17.0); MCH 31.2 pg (27.0-32.0); MCHC 31.8 g/dL (32.0-37.0); MCV 98.2 fL (80.0-97.0); Mean Platelet Volume 9.7 fL (9.5-12.2); Platelet Count 262 X 10*3/uL (140-440); RBC 3.33 X 10*6/uL (4.40-5.60); RDW 13.9 % (11.5-14.5); WBC 5.26 X 10*3/uL (4.50-10.00)
[2020-09-03 10:40] LABS: African American GFR (CKD) 100.6 (60.0-200.0); Albumin 3.2 g/dL (3.80-4.90); Albumin/Globulin Ratio 1.23 (1.60-3.17); Anion Gap 7.5 mmol/L (4.00-12.00); BUN/Creat Ratio 17.5 Ratio (12.00-20.00); Calcium 8.5 mg/dL (8.7-10.3); Carbon Dioxide 22.5 mmol/L (21.6-31.8); Globulin 2.6 g/dL (1.6-3.3); Non-African American GFR(CKD) 86.8 (60.0-200.0); Potassium 4.1 mmol/L (3.5-5.5); Total Bilirubin 0.4 mg/dL (0.2-1.2); Total Protein 5.8 g/dL (6.2-8.2)
[2020-09-03 11:07] LABS: Glucose,Whole Blood 154 mg/dL (75-99)
[2020-09-03] MEDS: AMPICILLIN-SULBACTAM 3 GM in SODIUM CHLORIDE 0.9% 100 ML IVPB SCH ×3 (11:54→23:17)
[2020-09-03] MEDS: SODIUM CHLORIDE 0.9% 1,000 ML IV SCH ×2 (12:27→20:28)
[2020-09-03 16:51] LABS: Glucose,Whole Blood 103 mg/dL (75-99)
[2020-09-03] MEDS ORDERED: VANCOMYCIN TROUGH DUE 1 EACH MISC MISCELLANE ONE (17:00)
[2020-09-03] MEDS: ATORVASTATIN 40 MG TAB PO SCH (20:28)
[2020-09-03 20:48] LABS: Glucose,Whole Blood 105 mg/dL (75-99)
--- NOTE | 2020-09-03 23:23 | PN ---
PROGRESS NOTE DATE OF SERVICE: 09/03/2020. REASON FOR FOLLOW: Left big toe osteomyelitis: INTERVAL HISTORY: Patient was seen on rounds this morning. The patient has been afebrile. The patient has been breathing comfortably. The patient denies having any chest pain or shortness of breath or cough. No nausea, vomiting, abdominal pain, or any worsening pain to the left big toe. PHYSICAL EXAMINATION: Blood pressure 106/67, pulse of 74. Temperature 97.9. He is 99% on room air. General description is an elderly male lying in bed in no distress. Respiratory system: Unlabored breathing, clear to auscultation anteriorly. Heart S1, S2. Regular rate and rhythm. Abdomen soft, no tenderness. Left leg is currently dressed up. No obvious drainage on the dressing. LABS: Blood culture not done. Local cultures not done. DIAGNOSTIC IMPRESSION AND PLAN: Patient with left big toe osteomyelitis on the base of the foot been seen by his medical supervisor as well as the x-ray. We are trying to obtain culture data from podiatry office so we can determine his discharge antibiotics. Continue with [place] and fabrice at this point. He will likely need a PICC line and outpatient antibiotic. Continue supportive care. MMODL / IJN: [id number] / WANDA
[2020-09-04] MEDS: AMPICILLIN-SULBACTAM 3 GM in SODIUM CHLORIDE 0.9% 100 ML IVPB SCH ×3 (05:09→17:19)
[2020-09-04] MEDS ORDERED: VANCOMYCIN 1,250 MG in SODIUM CHLORIDE 0.9% 250 ML IVPB SCH (06:00)
[2020-09-04 06:57] LABS: Glucose,Whole Blood 98 mg/dL (75-99)
[2020-09-04] MEDS: lisinopriL 5 MG TAB PO SCH (08:23)
[2020-09-04] MEDS: metFORMIN 500 MG TAB PO SCH ×2 (08:23→17:18)
[2020-09-04] MEDS: PIOGLITAZONE 30 MG TAB PO SCH (08:23)
[2020-09-04] MEDS: PSYLLIUM HUSK 100% 6 GM PACKET PO SCH ×2 (08:23→17:18)
[2020-09-04] MEDS: MULTIVITAMINS, THERA 1 EACH TAB PO SCH (08:23)
[2020-09-04] MEDS: CHOLECALCIFEROL 10 MCG (400 IU) TABLET PO SCH (08:23)
[2020-09-04] MEDS: ASPIRIN 325 MG TAB PO SCH (08:23)
[2020-09-04] MEDS: TERBINAFINE 250 MG TAB PO SCH (08:24)
[2020-09-04] MEDS: SODIUM CHLORIDE 0.9% 1,000 ML IV SCH (10:55)
[2020-09-04 11:18] LABS: HCT 33.8 % (39.6-50.0); HGB 10.6 g/dL (13.0-17.0); MCH 30.7 pg (27.0-32.0); MCHC 31.4 g/dL (32.0-37.0); Mean Platelet Volume 9.5 fL (9.5-12.2); Platelet Count 271 X 10*3/uL (140-440); RBC 3.45 X 10*6/uL (4.40-5.60); RDW 14.1 % (11.5-14.5); WBC 6.21 X 10*3/uL (4.50-10.00)
[2020-09-04 11:35] LABS: Glucose,Whole Blood 132 mg/dL (75-99)
[2020-09-04 14:01] LABS: African American GFR (CKD) 36.5 (60.0-200.0); Albumin 3.1 g/dL (3.80-4.90); Albumin/Globulin Ratio 1.24 (1.60-3.17); Anion Gap 12.5 mmol/L (4.00-12.00); BUN/Creat Ratio 14.5 Ratio (12.00-20.00); Calcium 8.2 mg/dL (8.7-10.3); Carbon Dioxide 20.5 mmol/L (21.6-31.8); Globulin 2.5 g/dL (1.6-3.3); Non-African American GFR(CKD) 31.5 (60.0-200.0); Potassium 4.5 mmol/L (3.5-5.5); Total Bilirubin 0.3 mg/dL (0.2-1.2); Total Protein 5.6 g/dL (6.2-8.2)
[2020-09-04] MEDS ORDERED: VANCOMYCIN IV PER PHARMACY 1 EACH MISC MISCELLANE PRN (14:33)
--- NOTE | 2020-09-04 14:44 | P.PN ---
Subjective Principal diagnosis: Foot infection This is a history and physical and a 74-year-old white male essentially admitted for osteomyelitis. The patient has had appropriate consultation and is now receiving vancomycin. Appreciate ID and vascular surgery input. Question need for MRI. The patient is significantly improved from a cellulitis perspective. Objective - Vital Signs Vital signs: Vital Signs Temp 98.3 F 09/04/20 13:55 Pulse 73 09/04/20 13:55 Resp 17 09/04/20 13:55 BP 121/74 09/04/20 13:55 Pulse Ox 100 09/04/20 13:55 Intake & Output 09/03/20 09/04/20 09/04/20 18:59 06:59 18:59 Output Total 1 Balance -1 Output: Urine/Stool Mix 1 Other: Voiding Method Indwelling Catheter Toilet Toilet Urinal Urinal # Voids 2 - Constitutional General appearance: Present: average body habitus - EENT Eyes: Absent: abnormal pupil - Neck Neck: Absent: lymphadenopathy - Respiratory Respiratory: bilateral: CTA - Cardiovascular Rhythm: regular Heart sounds: normal: S1, S2 Abnormal Heart Sounds: Absent: S3 Gallop - Gastrointestinal General gastrointestinal: Present: soft. Absent: tenderness - Integumentary Integumentary: Present: cellulitis, normal - Musculoskeletal Musculoskeletal: Present: gait normal - Labs CBC & Chem 7: 09/04/20 06:39 09/04/20 06:39 Labs: Abnormal Lab Results - Last 24 Hours (Table) 09/03/20 09/03/20 09/04/20 Range/Units 16:49 20:45 06:39 RBC 3.45 L (4.40-5.60) X 10*6/uL Hgb 10.6 L (13.0-17.0) g/dL Hct 33.8 L (39.6-50.0) % MCV 98.0 H (80.0-97.0) fL MCHC 31.4 L (32.0-37.0) g/dL Chloride (96-109) mmol/L Carbon Dioxide (21.6-31.8) mmol/L Anion Gap (4.00-12.00) mmol/L BUN (9.0-27.0) mg/dL Creatinine (0.6-1.5) mg/dL Est GFR (CKD-EPI)AfAm (60.0-200.0) Est GFR (CKD-EPI)NonAf (60.0-200.0) POC Glucose (mg/dL) 103 H 105 H (75-99) mg/dL Calcium (8.7-10.3) mg/dL Total Protein (6.2-8.2) g/dL Albumin (3.80-4.90) g/dL Albumin/Globulin Ratio (1.60-3.17) g/dL 09/04/20 09/04/20 Range/Units 06:39 11:33 RBC (4.40-5.60) X 10*6/uL Hgb (13.0-17.0) g/dL Hct (39.6-50.0) % MCV (80.0-97.0) fL MCHC (32.0-37.0) g/dL Chloride 111 H (96-109) mmol/L Carbon Dioxide 20.5 L (21.6-31.8) mmol/L Anion Gap 12.50 H (4.00-12.00) mmol/L BUN 29.0 H (9.0-27.0) mg/dL Creatinine 2.0 H (0.6-1.5) mg/dL Est GFR (CKD-EPI)AfAm 36.5 L (60.0-200.0) Est GFR (CKD-EPI)NonAf 31.5 L (60.0-200.0) POC Glucose (mg/dL) 132 H (75-99) mg/dL Calcium 8.2 L (8.7-10.3) mg/dL Total Protein 5.6 L (6.2-8.2) g/dL Albumin 3.10 L (3.80-4.90) g/dL Albumin/Globulin Ratio 1.24 L (1.60-3.17) g/dL Assessment and Plan (1) Diabetes Current Visit: Yes Status: Acute Code(s): E11.9 - TYPE 2 DIABETES MELLITUS WITHOUT COMPLICATIONS SNOMED Code(s): 07641816 (2) CAD (coronary artery disease) Current Visit: Yes Status: Acute Code(s): I25.10 - ATHSCL HEART DISEASE OF [place] CORONARY ARTERY W/O ANG PCTRS SNOMED Code(s): 93448361 (3) Hypertension Current Visit: Yes Status: Acute Code(s): I10 - ESSENTIAL (PRIMARY) HYPERTENSION SNOMED Code(s): 50528209 (4) Osteomyelitis of great toe of left foot Current Visit: Yes Status: Acute Code(s): M86.9 - OSTEOMYELITIS, UNSPECIFIED SNOMED Code(s): 798056250 Plan: Placed on empiric treatment. Continue vancomycin. Appreciate multiple consultants input. We'll continue follow-up from medical perspective.
[2020-09-04 16:39] LABS: Glucose,Whole Blood 160 mg/dL (75-99)
--- NOTE | 2020-09-04 19:46 | PN ---
PROGRESS NOTE DATE OF SERVICE: 09/04/2020 REASON FOR FOLLOWUP: Left big toe osteomyelitis. INTERVAL HISTORY: The patient is currently afebrile. The patient is breathing comfortably. The patient denies having any chest pain or shortness of breath or cough. No abdominal pain or pain to the left big toe. PHYSICAL EXAMINATION: Blood pressure 121/74 with a pulse of 73, temperature 98.3. He is 100% on room air. General description is an elderly male lying in bed in no distress. RESPIRATORY SYSTEM: Unlabored breathing. Clear to auscultation anteriorly. HEART: S1, S2. Regular rate and rhythm. ABDOMEN: Soft. No tenderness. Left big toe wound was probed and deep cultures were obtained. DIAGNOSTIC IMPRESSION AND PLAN: Patient with a left big toe wound with underlying osteomyelitis. Unfortunately Podiatry did not do any cultures when they were probing his wound and we do not have any microbiological detail. The patient has developed renal insufficency likely from vancomycin has been discontinued continue the Unasyn. Follow-up cultures today. That will guide his discharge antibiotic therapy. Continue supportive care. MMODL / IJN: [id number] / [email or web address]
[2020-09-04] MEDS: ATORVASTATIN 40 MG TAB PO SCH (20:37)
[2020-09-04 20:42] LABS: Glucose,Whole Blood 103 mg/dL (75-99)
[2020-09-05] MEDS: AMPICILLIN-SULBACTAM 3 GM in SODIUM CHLORIDE 0.9% 100 ML IVPB SCH ×5 (00:50→23:16)
[2020-09-05] MEDS: SODIUM CHLORIDE 0.9% 1,000 ML IV SCH ×2 (00:51→14:42)
[2020-09-05 06:55] LABS: Glucose,Whole Blood 105 mg/dL (75-99)
[2020-09-05] MEDS: MULTIVITAMINS, THERA 1 EACH TAB PO SCH (07:43)
[2020-09-05] MEDS: lisinopriL 5 MG TAB PO SCH (07:43)
[2020-09-05] MEDS: PIOGLITAZONE 30 MG TAB PO SCH (07:43)
[2020-09-05] MEDS: PSYLLIUM HUSK 100% 6 GM PACKET PO SCH ×2 (07:43→17:17)
[2020-09-05] MEDS: metFORMIN 500 MG TAB PO SCH ×2 (07:43→17:17)
[2020-09-05] MEDS: ASPIRIN 325 MG TAB PO SCH (07:44)
[2020-09-05] MEDS: TERBINAFINE 250 MG TAB PO SCH (07:44)
[2020-09-05] MEDS: CHOLECALCIFEROL 10 MCG (400 IU) TABLET PO SCH (07:44)
--- NOTE | 2020-09-05 07:54 | P.PN ---
Subjective Principal diagnosis: Foot infection This is a history and physical and a 74-year-old white male essentially admitted for osteomyelitis. The patient has had appropriate consultation and is now receiving vancomycin. Appreciate ID and vascular surgery input. Question need for MRI. The patient is significantly improved from a cellulitis perspective. Objective - Vital Signs Vital signs: Vital Signs Temp 97.6 F 09/05/20 07:31 Pulse 63 09/05/20 07:31 Resp 16 09/05/20 07:31 BP 106/63 09/05/20 07:31 Pulse Ox 99 09/05/20 07:31 Intake & Output 09/04/20 09/05/20 09/05/20 18:59 06:59 18:59 Intake Total 200 Balance 200 Intake: Intake, IV Titration 200 Amount Ampicillin-Sulbactam 3 gm 200 In Sodium Chloride 0.9% 100 ml @ 200 mls/hr IVPB Q6HR [facility] Rx#:[id number] Other: Voiding Method Toilet Toilet Urinal Urinal - Constitutional General appearance: Present: average body habitus - EENT Eyes: Absent: abnormal pupil - Neck Neck: Absent: lymphadenopathy - Respiratory Respiratory: bilateral: CTA - Cardiovascular Rhythm: regular Heart sounds: normal: S1, S2 Abnormal Heart Sounds: Absent: S3 Gallop - Gastrointestinal General gastrointestinal: Present: soft. Absent: tenderness - Integumentary Integumentary: Present: cellulitis - Neurologic Neurologic: Present: CNII-XII intact. Absent: focal deficits - Labs CBC & Chem 7: 09/04/20 06:39 09/05/20 06:25 Labs: Abnormal Lab Results - Last 24 Hours (Table) 09/04/20 09/04/20 09/04/20 Range/Units 06:39 06:39 11:33 RBC 3.45 L (4.40-5.60) X 10*6/uL Hgb 10.6 L (13.0-17.0) g/dL Hct 33.8 L (39.6-50.0) % MCV 98.0 H (80.0-97.0) fL MCHC 31.4 L (32.0-37.0) g/dL Chloride 111 H (96-109) mmol/L Carbon Dioxide 20.5 L (21.6-31.8) mmol/L Anion Gap 12.50 H (4.00-12.00) mmol/L BUN 29.0 H (9.0-27.0) mg/dL Creatinine 2.0 H (0.6-1.5) mg/dL Est GFR (CKD-EPI)AfAm 36.5 L (60.0-200.0) Est GFR (CKD-EPI)NonAf 31.5 L (60.0-200.0) POC Glucose (mg/dL) 132 H (75-99) mg/dL Calcium 8.2 L (8.7-10.3) mg/dL Total Protein 5.6 L (6.2-8.2) g/dL Albumin 3.10 L (3.80-4.90) g/dL Albumin/Globulin Ratio 1.24 L (1.60-3.17) g/dL 09/04/20 09/04/20 09/05/20 Range/Units 16:38 20:39 06:25 RBC (4.40-5.60) X 10*6/uL Hgb (13.0-17.0) g/dL Hct (39.6-50.0) % MCV (80.0-97.0) fL MCHC (32.0-37.0) g/dL Chloride (96-109) mmol/L Carbon Dioxide (21.6-31.8) mmol/L Anion Gap (4.00-12.00) mmol/L BUN (9.0-27.0) mg/dL Creatinine 2.31 H (0.6-1.5) mg/dL Est GFR (CKD-EPI)AfAm (60.0-200.0) Est GFR (CKD-EPI)NonAf (60.0-200.0) POC Glucose (mg/dL) 160 H 103 H (75-99) mg/dL Calcium (8.7-10.3) mg/dL Total Protein (6.2-8.2) g/dL Albumin (3.80-4.90) g/dL Albumin/Globulin Ratio (1.60-3.17) g/dL 09/05/20 Range/Units 06:54 RBC (4.40-5.60) X 10*6/uL Hgb (13.0-17.0) g/dL Hct (39.6-50.0) % MCV (80.0-97.0) fL MCHC (32.0-37.0) g/dL Chloride (96-109) mmol/L Carbon Dioxide (21.6-31.8) mmol/L Anion Gap (4.00-12.00) mmol/L BUN (9.0-27.0) mg/dL Creatinine (0.6-1.5) mg/dL Est GFR (CKD-EPI)AfAm (60.0-200.0) Est GFR (CKD-EPI)NonAf (60.0-200.0) POC Glucose (mg/dL) 105 H (75-99) mg/dL Calcium (8.7-10.3) mg/dL Total Protein (6.2-8.2) g/dL Albumin (3.80-4.90) g/dL Albumin/Globulin Ratio (1.60-3.17) g/dL Microbiology - Last 24 Hours (Table) 09/04/20 12:42 Gram Stain - Preliminary Toe - Right First Wound Culture - Preliminary Assessment and Plan (1) Diabetes Current Visit: Yes Status: Acute Code(s): E11.9 - TYPE 2 DIABETES MELLITUS WITHOUT COMPLICATIONS SNOMED Code(s): 65777948 (2) CAD (coronary artery disease) Current Visit: Yes Status: Acute Code(s): I25.10 - ATHSCL HEART DISEASE OF [place] CORONARY ARTERY W/O ANG PCTRS SNOMED Code(s): 07025725 (3) Hypertension Current Visit: Yes Status: Acute Code(s): I10 - ESSENTIAL (PRIMARY) HYPERTENSION SNOMED Code(s): 06776858 (4) Osteomyelitis of great toe of left foot Current Visit: Yes Status: Acute Code(s): M86.9 - OSTEOMYELITIS, UNSPECIFIED SNOMED Code(s): 148896962 Plan: Placed on empiric treatment. Continue vancomycin. Appreciate multiple consultants input. We'll continue follow-up from medical perspective. PICC line to be done today. When cultures are known we can sent home on appropriate IV antibiotic treatment as dictated by Dr. Mcdaniels
[2020-09-05] MEDS ORDERED: LIDOCAINE 1% INJ 10MG/ML (10 ML MDV) SQ ONE (11:45)
[2020-09-05 11:57] LABS: Glucose,Whole Blood 141 mg/dL (75-99)
--- NOTE | 2020-09-05 12:37 | CONS ---
CONSULTATION REASON FOR CONSULT: Renal failure. HISTORY OF PRESENT ILLNESS: The patient is a 74-year-old male who was admitted to the hospital on 09/01/2020 with history of left foot ulcer which had been progressively getting worse over the past few weeks. Patient was seen by Podiatry. He was maintained on oral antibiotics prior to admission. He is currently being treated for osteomyelitis. Patient's serum creatinine is noted to be 2.3 mg/dL today. Previous creatinine was 0.8 on 09/03/2020. The patient's blood pressure has been slightly on the lower side with systolic around 108-101 mmHg systolic. I do see a reading of 96 mmHg systolic. He has been maintained on DESMOND inhibitors. He did get vancomycin and a vancomycin level was 27.8 today and it was 21.9 on 09/03/2020. The patient has been voiding in a urinal and he denies any previous kidney issues. PAST MEDICAL HISTORY: Significant for coronary artery disease, type 2 diabetes, GI bleed, hyperlipidemia, hypertension, rectal bleeding, diverticulitis, carotid artery disease. PAST SURGICAL HISTORY: Hemorrhoidectomy, colonoscopy. SOCIAL HISTORY: Patient is a former smoker. MEDICATIONS: Home medications include multivitamins, aspirin, Lipitor, Actos, Zestril, Cipro, metformin. ALLERGIES: None. PHYSICAL EXAMINATION: Patient is comfortable, awake, alert, oriented x3. He is not in any acute distress. Blood pressure was 106/63, heart rate 63 per minute. He is afebrile. EXAMINATION OF THE HEART: S1, S2. EXAMINATION OF THE LUNGS: Bilateral breath sounds are heard. Abdomen is soft, nontender. Examination of the lower extremities shows no significant edema. Left foot is currently dressed. SH[employer] DRIER exam grossly intact. LABS: Labs show sodium of 144, potassium 4.5, chloride 111, CO2 is 20.5, BUN 29, creatinine 2.0 on 09/04/2020. Creatinine is 2.3 today. ASSESSMENT: 1. Acute kidney injury, nonoliguric secondary to vancomycin toxicity and some degree of ischemic acute tubular necrosis as well. I will maintain the patient off DESMOND inhibitors for now as blood pressure is on the lower side with systolic around 108- 106 mmHg. Vancomycin has already been discontinued. Check a basic metabolic panel in a.m. Check post-void scan. Rule out urine retention and avoid any other nephrotoxic agents. May continue with the IV fluids for now. If renal function continues to deteriorate, we will need to discontinue the Glucophage. 2. Left toe osteomyelitis, being followed by ID. Wound cultures are pending. The patient was on vancomycin, now on Unasyn. 3. Type 2 diabetes. 4. Dyslipidemia. 5. Hypertension. Blood pressure is currently low. PLAN: Hold DESMOND inhibitors. Maintain IV fluids. Avoid any other nephrotoxic agents. Repeat labs in a.m. Hold Glucophage if renal function continues to worsen tomorrow. MMODL / IJN: [id number] /
--- NOTE | 2020-09-05 15:06 | IR ---
PICC EXAMINATION TYPE: IR cvc insert >=5 years DATE OF EXAM: 09/05/2020 COMPARISON: NONE CLINICAL HISTORY: Infection Needs long-term intravenous access for antibiotics. PROCEDURE: Hand hygiene obtained with soap and water and alcohol-based hand rub. After informed consent, the skin overlying the right radial vein was localized with ultrasound and no sowmya to be compressible and patent. An ultrasound image was obtained and submitted on the patient's c agee. The overlying skin was prepped and draped and Lidocaine was used for local anesthesia. A skin marck was made with a scalpel. Access was gained to the vein under ultrasound guidance with a 21 gau [employer] needle and a 0.018 inch wire was advanced. Access site was dilated with Peel-Away sheath and cath eter tailored to the appropriate length and advanced such that the distal tip is at the cavoatrial ju nction. Spot image was obtained verifying placement. Catheter was fixed to the skin and a sterile d ressing was placed following hemostasis. Catheter was aspirated and flushed with saline. Patient wa s discharged in stable condition without complication.Maximal barrier technique is utilized. Ultraso und image is documented on the chart. Ultrasound used with sterile technique. Fluoro time and fluoroscopic images submitted to document procedure: 0.1 minutes fluoroscopy time, 54 intraoperative images document the procedure IMPRESSION: STATUS POST ULTRASOUND AND FLUOROSCOPIC GUIDED PICC LINE PLACEMENT, READY FOR USE. THIS PROCEDURE WAS PERFORMED BY THE UNDERSIGNED.
[2020-09-05 17:08] LABS: Glucose,Whole Blood 113 mg/dL (75-99)
--- NOTE | 2020-09-05 18:03 | PN ---
PROGRESS NOTE DATE OF SERVICE: 09/05/2020 REASON FOR FOLLOWUP: Left big toe osteomyelitis. INTERVAL HISTORY: The patient is currently afebrile. The patient is slightly upset and noticed to have worsening of his kidney function. The patient denies having any chest pain. No shortness of breath or cough. No nausea. No vomiting. No abdominal pain or any pain to the left big toe. PHYSICAL EXAMINATION: Blood pressure 108/67, pulse of 63, temperature 97.5. He is 100% on room air. General description: The patient is an elderly male up in the in no distress. Respiratory system: Unlabored breathing, decreased intensity of breath sounds with no wheeze. Heart: S1, S2. Regular rate and rhythm. Abdomen soft, no tenderness. Left big toe currently dressed up. No obvious drainage on the dressing. LAB DATA: Creatinine 2.1, Vanco trough of 27.8. Cultures currently pending. DIAGNOSTIC IMPRESSION AND PLAN: Patient with left big toe osteomyelitis. Unfortunately, there were no cultures done by the clinical coder at the time of initial evaluation. Culture obtained yesterday is currently pending. The patient did have drainage vancomycin has been discontinued. Continue with Unasyn with discharge antibiotic depending upon the culture report. The patient did have multiple questions regarding his kidney function. Those were explained to him in layman's terms in front of his . MMODL / IJN: [id number] /
[2020-09-05] MEDS: ATORVASTATIN 40 MG TAB PO SCH (20:43)
[2020-09-05 20:59] LABS: Glucose,Whole Blood 141 mg/dL (75-99)
[2020-09-06] MEDS: SODIUM CHLORIDE 0.9% 1,000 ML IV SCH ×2 (04:05→19:35)
[2020-09-06] MEDS: AMPICILLIN-SULBACTAM 3 GM in SODIUM CHLORIDE 0.9% 100 ML IVPB SCH ×3 (05:06→20:00)
[2020-09-06 07:15] LABS: Glucose,Whole Blood 103 mg/dL (75-99)
[2020-09-06] MEDS: PSYLLIUM HUSK 100% 6 GM PACKET PO SCH ×2 (08:53→20:51)
[2020-09-06] MEDS: ASPIRIN 325 MG TAB PO SCH (08:53)
[2020-09-06] MEDS: CHOLECALCIFEROL 10 MCG (400 IU) TABLET PO SCH (08:53)
[2020-09-06] MEDS: MULTIVITAMINS, THERA 1 EACH TAB PO SCH (08:53)
[2020-09-06] MEDS: metFORMIN 500 MG TAB PO SCH (08:53)
[2020-09-06] MEDS: TERBINAFINE 250 MG TAB PO SCH (08:53)
[2020-09-06] MEDS: PIOGLITAZONE 30 MG TAB PO SCH (08:53)
[2020-09-06] MEDS ORDERED: ALPRAZolam 0.25 MG TAB PO PRN (11:02)
[2020-09-06 11:31] LABS: Glucose,Whole Blood 179 mg/dL (75-99)
--- NOTE | 2020-09-06 11:43 | US ---
EXAMINATION TYPE: US venous doppler duplex LE DATE OF EXAM: 09/06/2020 11:37 AM COMPARISON: NONE CLINICAL HISTORY: Rule out DVT. Patient stated has left foot swelling with history of left Great Toe ulcer, PVOD, left leg angioplasty with stent, diabetes. Bilateral pain. SIDE PERFORMED: Bilateral TECHNIQUE: The lower extremity deep venous system is examined utilizing real time linear array sonog sandra with graded compression, doppler sonography and color-flow sonography. VESSELS IMAGED: Common Femoral Vein Deep Femoral Vein Greater Saphenous Vein * Femoral Vein Popliteal Vein Small Saphenous Vein * Proximal Calf Veins (* superficial vessels) Right Leg: Negative for DVT Left Leg: Negative for DVT Grayscale, color doppler, spectral doppler imaging performed of the deep veins of the bilateral lower extremities. There is normal flow, compressibility, vascular waveforms. IMPRESSION: No ultrasound evidence for acute DVT in either lower extremity.
--- NOTE | 2020-09-06 11:56 | P.PN ---
Subjective Progress Note Date: 09/06/20 Principal diagnosis: Is a 74-year-old male followed up for acute kidney injury from combination of low blood pressure, vancomycin and osteomyelitis of left foot ulcer. He is known with diabetes carotid artery stenosis. Currently feeling well and wants to go home. No fever chills no nausea vomiting good appetite no diarrhea no abdominal pain no dysuria frequency Vital signs are stable, one blood pressure of 109/61 otherwise 120 to 130s, afebrile intake and output is not well documented Objective - Vital Signs Vital signs: Vital Signs Temp 97.6 F 09/06/20 07:40 Pulse 72 09/06/20 07:40 Resp 20 09/06/20 07:40 BP 120/62 09/06/20 07:40 Pulse Ox 98 09/06/20 07:40 Intake & Output 09/05/20 09/06/20 09/06/20 18:59 06:59 18:59 Intake Total 200 Balance 200 Intake: Oral 200 Other: Voiding Method Toilet Toilet Toilet Urinal Urinal Urinal Examination awake alert oriented comfortable sitting in a chair HEENT exam no JVP neck is supple no facial asymmetry Lungs are clear to auscultation good air entry bilaterally Heart sounds unremarkable for any murmur rub gallop Abdomen soft nontender. Extremity exam was minimal edema Neurologically awake alert oriented - Labs CBC & Chem 7: 09/04/20 06:39 09/06/20 06:47 Labs: Abnormal Lab Results - Last 24 Hours (Table) 09/05/20 09/05/20 09/05/20 Range/Units 11:56 17:07 20:57 Creatinine (0.66-1.25) mg/dL POC Glucose (mg/dL) 141 H 113 H 141 H (75-99) mg/dL 09/06/20 09/06/20 09/06/20 Range/Units 06:47 07:02 11:25 Creatinine 2.19 H (0.66-1.25) mg/dL POC Glucose (mg/dL) 103 H 179 H (75-99) mg/dL Microbiology - Last 24 Hours (Table) 09/04/20 12:42 Gram Stain - Preliminary Toe - Right First Wound Culture - Preliminary Assessment and Plan Assessment: Patient 1. Acute kidney injury secondary to combination of low blood pressure, vancomycin, ostomy might as of the left foot. Creatinine has improved from 2.31 peaked at 2.19 this morning 2. Baseline creatinine was 0.8 on 09/03/2020, and 0.78 dated 09/01/2020 on admission. 3. Anion gap is increased from 7.5-12.5 as of 2 days ago no labs since then, likely from acute kidney injury, rule out metformin associated lactic acidosis although doubt it given his stability 4. Osteomyelitis left foot 5. Diabetes mellitus Recommendation 1. Check electrolytes been and creatinine today. 2. Strict I's and O's 3. Discontinue metformin until labs are available
[2020-09-06 12:13] LABS: African American GFR (CKD) 33 (>60 ml/min/1.73 sqM); Anion Gap 9 mmol/L; Blood Urea Nitrogen 32 mg/dL (9-20); Calcium 8.6 mg/dL (8.4-10.2); Carbon Dioxide 20 mmol/L (22-30); Chloride 113 mmol/L (98-107); Glucose 101 mg/dL (74-99); Non-African American GFR(CKD) 29 (>60 ml/min/1.73 sqM); Potassium 4.3 mmol/L (3.5-5.1); Sodium 142 mmol/L (137-145)
--- NOTE | 2020-09-06 16:29 | P.PN ---
Subjective This is a pleasant 74 years old male with past medical history of diabetes mellitus, hypertension, hyperlipidemia. Presents with signs and symptoms of osteomyelitis of the left big toe. Patient currently big toe is wrapped in a dressing and patient with no significant complaint. He is a pleasant and is due to undergo test is normal. Labs including CBC and BMP are unremarkable except for significantly elevated creatinine and during this admission 2.0 compared to baseline 0.8. His creatinine is 2.25 Doppler of the lower extremity is negative for DVT. Left toe x-ray is consistent with osteomyelitis Bone culture obtained yesterday are pending Patient also was followed closely by nephrology team Objective - Vital Signs Vital signs: Vital Signs Temp 97.7 F 09/06/20 15: Pulse 72 09/06/20 15:27 Resp 20 09/06/20 15:27 BP 134/66 09/06/20 15:27 Pulse Ox 100 09/06/20 15:27 Intake & Output 09/05/20 09/06/20 09/06/20 18:59 06:59 18:59 Intake Total 520 Balance 520 Intake: Oral 520 Other: Voiding Method Toilet Toilet Toilet Urinal Urinal Urinal - Exam GENERAL: The patient is alert and oriented x3, not in any acute distress. Well developed, well nourished. HEENT: Pupils are round and equally reacting to light. EOMI. No scleral icterus. No conjunctival pallor. Normocephalic, atraumatic. No pharyngeal erythema. No thyromegaly. CARDIOVASCULAR: S1 and S2 present. No murmurs, rubs, or gallops. PULMONARY: Chest is clear to auscultation, no wheezing or crackles. ABDOMEN: Soft, nontender, nondistended, normoactive bowel sounds. No palpable organomegaly. MUSCULOSKELETAL: No joint swelling or deformity. -EXTREMITIES: No cyanosis, clubbing, or pedal edema. Left big toe is in a dressing NEUROLOGICAL: Gross neurological examination did not reveal any focal deficits. SKIN: No rashes. no petechiae. Gait: Normal get up and go test - Labs CBC & Chem 7: 09/04/20 06:39 09/06/20 06:47 Labs: Abnormal Lab Results - Last 24 Hours (Table) 09/05/20 09/05/20 09/06/20 Range/Units 17:07 20:57 06:47 Chloride (98-107) mmol/L Carbon Dioxide (22-30) mmol/L BUN (9-20) mg/dL Creatinine 2.19 H (0.66-1.25) mg/dL Glucose (74-99) mg/dL POC Glucose (mg/dL) 113 H 141 H (75-99) mg/dL 09/06/20 09/06/20 09/06/20 Range/Units 06:47 07:02 11:25 Chloride 113 H (98-107) mmol/L Carbon Dioxide 20 L (22-30) mmol/L BUN 32 H (9-20) mg/dL Creatinine 2.15 H (0.66-1.25) mg/dL Glucose 101 H (74-99) mg/dL POC Glucose (mg/dL) 103 H 179 H (75-99) mg/dL Microbiology - Last 24 Hours (Table) 09/04/20 12:42 Gram Stain - Final Toe - Right First Wound Culture - Final Assessment and Plan Assessment: Left big toe osteomyelitis Acute kidney injury, multifactorial secondary to hypertension and vancomycin Hypertension Hyperlipidemia Diabetes mellitus Plan: This is a pleasant 74 years old male who presents with left big toe osteomyelitis. Bone culture is still pending. In the meantime patient remains on Unasyn per ID team recommendation. Proofreader recommended to discontinue metformin today and keep monitoring for now Labs and medication were reviewed.. Continue same treatment. Continue with symptomatic treatment. Resume home medication. Monitor lytes and vitals. DVT and GI prophylaxis. Further recommendationsas per clinical course of the patient DVT prophylaxis: Subcutaneous heparin GI Prophylaxis: Pepcid
[2020-09-06 17:14] LABS: Glucose,Whole Blood 126 mg/dL (75-99)
[2020-09-06] MEDS: ATORVASTATIN 40 MG TAB PO SCH (20:00)
[2020-09-06] MEDS: FAMOTIDINE 20 MG/2 ML VIAL IV SCH (20:00)
[2020-09-06] MEDS: HEPARIN SODIUM,PORCINE/PF 5,000 UNIT/0.5 ML SYRINGE SQ SCH (20:00)
[2020-09-06 20:25] LABS: Glucose,Whole Blood 108 mg/dL (75-99)
[2020-09-07] MEDS: AMPICILLIN-SULBACTAM 3 GM in SODIUM CHLORIDE 0.9% 100 ML IVPB SCH ×3 (04:55→20:11)
[2020-09-07] MEDS: SODIUM CHLORIDE 0.9% 1,000 ML IV SCH ×2 (05:20→19:28)
[2020-09-07 07:05] LABS: Glucose,Whole Blood 96 mg/dL (75-99)
--- NOTE | 2020-09-07 07:49 | PN ---
PROGRESS NOTE DATE OF SERVICE: 09/06/2020 REASON FOR FOLLOWUP: Left big toe osteomyelitis. INTERVAL HISTORY: The patient is currently afebrile. The patient is breathing comfortably. Patient denies having any chest pain, shortness of breath or cough. No abdominal pain. No pain to the left big toe. PHYSICAL EXAMINATION: VITAL SIGNS: Blood pressure 155/79, pulse of 77, temperature 97.6, he is 100% on room air. GENERAL DESCRIPTION: An elderly male lying in bed in no distress. RESPIRATORY SYSTEM: Unlabored breathing, clear to auscultation anteriorly. HEART: S1, S2. Regular rate and rhythm. ABDOMEN: Soft, no tenderness. EXTREMITIES: Left big toe swelling and redness has decreased. LAB: BUN of 32, creatinine is 2.15. Cultures from the big toe so far are negative. DIAGNOSTIC IMPRESSION AND PLAN: Patient with left big toe osteomyelitis. Unfortunately outpatient cultures were not done and culture done here after starting antibiotic has been negative so far. With his renal insufficiency and hydronephrosis, the patient is to continue with Unasyn, possible transition to Rocephin on discharge. Will get PICC line on Tuesday. Local care to continue with Aquacel Silver dressing and continue supportive care. MMODL / IJN: [id number] /
[2020-09-07] MEDS: PSYLLIUM HUSK 100% 6 GM PACKET PO SCH ×2 (08:57→20:12)
[2020-09-07] MEDS: TERBINAFINE 250 MG TAB PO SCH (08:57)
[2020-09-07] MEDS: PIOGLITAZONE 30 MG TAB PO SCH (08:57)
[2020-09-07] MEDS: MULTIVITAMINS, THERA 1 EACH TAB PO SCH (08:57)
[2020-09-07] MEDS: HEPARIN SODIUM,PORCINE/PF 5,000 UNIT/0.5 ML SYRINGE SQ SCH ×2 (08:57→20:12)
[2020-09-07] MEDS: ASPIRIN 325 MG TAB PO SCH (08:57)
[2020-09-07] MEDS: CHOLECALCIFEROL 10 MCG (400 IU) TABLET PO SCH (08:57)
[2020-09-07] MEDS: FAMOTIDINE 20 MG/2 ML VIAL IV SCH (08:57)
--- NOTE | 2020-09-07 10:05 | P.PN ---
Subjective Progress Note Date: 09/07/20 Principal diagnosis: Is a 74-year-old male followed up for acute kidney injury from combination of low blood pressure, vancomycin ( level was 27.8 on 09/05/2020) and osteomyelitis of left foot ulcer. He is known with diabetes, carotid artery stenosis. Currently feeling well and wants to go home. No fever chills no nausea vomiting good appetite no diarrhea no abdominal pain no dysuria frequency Vital signs are stable, Objective - Vital Signs Vital signs: Vital Signs Temp 98.0 F 09/07/20 08:56 Pulse 66 09/07/20 08:56 Resp 16 09/07/20 08:56 BP 149/74 09/07/20 08:56 Pulse Ox 98 09/07/20 08:56 Intake & Output 09/06/20 09/07/20 09/07/20 18:59 06:59 18:59 Intake Total 1745 Balance 1745 Intake: Intake, IV Titration 600 Amount Ampicillin-Sulbactam 3 gm 100 In Sodium Chloride 0.9% 100 ml @ 200 mls/hr IVPB Q6HR [facility] Rx#:[id number] Sodium Chloride 0.9% 1, 500 000 ml @ 75 mls/hr IV . [id number] [facility] Rx#:[id number] Oral 1145 Other: Voiding Method Toilet Toilet Toilet Urinal Urinal Urinal Examination is awake alert oriented comfortable HEENT exam no JVP neck is supple no facial asymmetry Lungs are clear to auscultation good air entry bilaterally Heart sounds unremarkable for any murmur rub gallop Abdomen soft nontender Extreme exam was mild edema Neurologically awake alert oriented comfortable He was ago home badly - Labs CBC & Chem 7: 09/04/20 06:39 09/06/20 06:47 Labs: Abnormal Lab Results - Last 24 Hours (Table) 09/06/20 09/06/20 09/06/20 Range/Units 06:47 11:25 17:08 Chloride 113 H (98-107) mmol/L Carbon Dioxide 20 L (22-30) mmol/L BUN 32 H (9-20) mg/dL Creatinine 2.15 H (0.66-1.25) mg/dL Glucose 101 H (74-99) mg/dL POC Glucose (mg/dL) 179 H 126 H (75-99) mg/dL 09/06/20 Range/Units 20:23 Chloride (98-107) mmol/L Carbon Dioxide (22-30) mmol/L BUN (9-20) mg/dL Creatinine (0.66-1.25) mg/dL Glucose (74-99) mg/dL POC Glucose (mg/dL) 108 H (75-99) mg/dL Microbiology - Last 24 Hours (Table) 09/04/20 12:42 Gram Stain - Final Toe - Right First Wound Culture - Final Assessment and Plan Assessment: Patient 1. Acute kidney injury secondary to combination of low blood pressure, vancomycin, osteomyelitis of the left foot. Creatinine has improved from 2.31 peak to 2.15 yesterday, Baseline creatinine was 0.8 on 09/03/2020, and 0.78 dated 09/01/2020 on admission. 3. Anion gap is increased from 7.5-12.5 as of 09/04/2020 and then improved again to 9 with a bicarb of 20, likely from acute kidney injury, rule out metformin associated lactic acidosis although doubt it given his stability. 4. Osteomyelitis left foot 5. Diabetes mellitus Recommendation 1. Resume metformin and watch closely renal function. GFR is 29 2. Avoid nephrotoxic medications. His off of vancomycin
[2020-09-07 11:32] LABS: Glucose,Whole Blood 129 mg/dL (75-99)
--- NOTE | 2020-09-07 15:13 | P.PN ---
Subjective This is a pleasant 74 years old male with past medical history of diabetes mellitus, hypertension, hyperlipidemia. Presents with signs and symptoms of osteomyelitis of the left big toe. Patient currently big toe is wrapped in a dressing and patient with no significant complaint. He is a pleasant and is due to undergo test is normal. Labs including CBC and BMP are unremarkable except for significantly elevated creatinine and during this admission 2.0 compared to baseline 0.8. His creatinine is 2.25 Doppler of the lower extremity is negative for DVT. Left toe x-ray is consistent with osteomyelitis Bone culture obtained yesterday are pending Patient also was followed closely by nephrology team 09/07/2020 Patient is a pleasant, active, asymptomatic. He is been treated for osteomyelitis of the left big toe, also he has elevated creatinine thought secondary to hypertension, vancomycin. No other new complaints, hemodynamically stable. Sugar is low normal. He is currently covered with normal saline at 75 mL/h, Unasyn with the plan to switch him to ceftriaxone with PICC line placement tomorrow per ID team recommendation rest room attendant follow the patient and start him back on metformin, however his sugar is on the low side 96-129, I discussed with bed side nurse to hold it tonight and to discuss it with rest room attendant whether to continue or hold metformin Objective - Vital Signs Vital signs: Vital Signs Temp 98.0 F 09/07/20 08:56 Pulse 66 09/07/20 08:56 Resp 16 09/07/20 08:56 BP 149/74 09/07/20 08:56 Pulse Ox 98 09/07/20 08:56 Intake & Output 09/06/20 09/07/20 09/07/20 18:59 06:59 18:59 Intake Total 1745 Balance 1745 Intake: Intake, IV Titration 600 Amount Ampicillin-Sulbactam 3 gm 100 In Sodium Chloride 0.9% 100 ml @ 200 mls/hr IVPB Q6HR SUSIE Rx#:[id number] Sodium Chloride 0.9% 1, 500 000 ml @ 75 mls/hr IV . [id number] SUSIE Rx#:[id number] Oral 1145 Other: Voiding Method Toilet Toilet Toilet Urinal Urinal Urinal - Exam GENERAL: The patient is alert and oriented x3, not in any acute distress. Well developed, well nourished. HEENT: Pupils are round and equally reacting to light. EOMI. No scleral icterus. No conjunctival pallor. Normocephalic, atraumatic. No pharyngeal erythema. No thyromegaly. CARDIOVASCULAR: S1 and S2 present. No murmurs, rubs, or gallops. PULMONARY: Chest is clear to auscultation, no wheezing or crackles. ABDOMEN: Soft, nontender, nondistended, normoactive bowel sounds. No palpable organomegaly. MUSCULOSKELETAL: No joint swelling or deformity. -EXTREMITIES: No cyanosis, clubbing, or pedal edema. Left big toe is in a dressing NEUROLOGICAL: Gross neurological examination did not reveal any focal deficits. SKIN: No rashes. no petechiae. Gait: Normal get up and go test - Labs CBC & Chem 7: 09/04/20 06:39 09/06/20 06:47 Labs: Abnormal Lab Results - Last 24 Hours (Table) 09/06/20 09/06/20 09/07/20 Range/Units 17:08 20:23 11:31 POC Glucose (mg/dL) 126 H 108 H 129 H (75-99) mg/dL Microbiology - Last 24 Hours (Table) 09/04/20 12:42 Gram Stain - Final Toe - Right First Wound Culture - Final Assessment and Plan Assessment: Left big toe osteomyelitis Acute kidney injury, multifactorial secondary to hypertension and vancomycin Hypertension Hyperlipidemia Diabetes mellitus Plan: This is a pleasant 74 years old male who presents with left big toe osteomyelitis. Bone culture is still nondiagnostic, In the meantime patient remains on Unasyn per ID team recommendation. Plan for PICC line and ceftriaxone as an outpatient as per ID Superintendent Maintenance [employer] recommended to restart metformin however patient sugar is low normal, discussed with bed side nurse to hold metformin for tonight Labs and medication were reviewed.. Continue same treatment. Continue with symptomatic treatment. Resume home medication. Monitor lytes and vitals. DVT and GI prophylaxis. Further recommendationsas per clinical course of the patient DVT prophylaxis: Subcutaneous heparin GI Prophylaxis: Pepcid
[2020-09-07 17:16] LABS: Glucose,Whole Blood 112 mg/dL (75-99)
[2020-09-07] MEDS ORDERED: metFORMIN 500 MG TAB PO SCH (17:30)
[2020-09-07] MEDS: metFORMIN 500 MG TAB PO SCH (17:53)
[2020-09-07] MEDS: ATORVASTATIN 40 MG TAB PO SCH (20:12)
[2020-09-07 20:42] LABS: Glucose,Whole Blood 130 mg/dL (75-99)
--- NOTE | 2020-09-07 21:11 | PN ---
PROGRESS NOTE DATE OF SERVICE: 09/07/2020. REASON FOR FOLLOWUP: Left big toe osteomyelitis. INTERVAL HISTORY: The patient is currently afebrile. The patient is breathing comfortably. The patient denies having any chest pain, shortness of breath or cough. No nausea, vomiting, abdominal pain or pain to the left big toe. PHYSICAL EXAMINATION: Blood pressure 133/77 with a pulse of 61, temperature 97.5. He is 100% on room air. General description is an elderly male lying in bed in no distress. Respiratory system: Unlabored breathing, clear to auscultation anteriorly. Heart S1-S2 regular. ABDOMEN: Soft. No tenderness. Left big toe overall swelling and redness improved. No drainage. LABS: No new labs have been obtained today. He did have sed rate of 90 and CRP 1.3. DIAGNOSTIC IMPRESSION AND PLAN: Patient with left big toe, also with concern for underlying osteomyelitis with wound over the bone. Also has been negative for resistant pathogen. Patient is currently on Unasyn. Transition to Rocephin 2 grams daily for a total of 6 weeks with close outpatient followup. He already has a PICC line. Once antibiotic arranged, will be able to go home and close outpatient followup. MMODL / IJN: [id number] /
[2020-09-08] MEDS: AMPICILLIN-SULBACTAM 3 GM in SODIUM CHLORIDE 0.9% 100 ML IVPB SCH (04:48)
[2020-09-08 07:07] LABS: Glucose,Whole Blood 100 mg/dL (75-99)
[2020-09-08 07:51] VITALS: BP 148/77; PULSE 84; RESP 16; TEMP 97.6
[2020-09-08] MEDS: CHOLECALCIFEROL 10 MCG (400 IU) TABLET PO SCH (08:12)
[2020-09-08] MEDS: PSYLLIUM HUSK 100% 6 GM PACKET PO SCH (08:12)
[2020-09-08] MEDS: HEPARIN SODIUM,PORCINE/PF 5,000 UNIT/0.5 ML SYRINGE SQ SCH (08:12)
[2020-09-08] MEDS: ASPIRIN 325 MG TAB PO SCH (08:13)
[2020-09-08] MEDS: TERBINAFINE 250 MG TAB PO SCH (08:13)
[2020-09-08] MEDS: metFORMIN 500 MG TAB PO SCH (08:13)
[2020-09-08] MEDS: MULTIVITAMINS, THERA 1 EACH TAB PO SCH (08:13)
[2020-09-08] MEDS: PIOGLITAZONE 30 MG TAB PO SCH (08:13)
--- NOTE | 2020-09-08 08:24 | P.DS ---
Providers Date of admission: 09/01/20 16:16 Attending physician: Michael Lopez Consults: 09/01/20 15:51 Consult Physician Stat Consulting Provider: Misael Mcdaniels Consult Reason/Comments: osteomyelitis Do you want consulting provider notified?: Yes 09/02/20 08:05 Consult Physician Stat Consulting Provider: Nitish Lawrence Consult Reason/Comments: DIABETIC ULCER/OSTEOMYELITIS Do you want consulting provider notified?: Yes 09/05/20 08:12 Consult Physician Stat Consulting Provider: [place] Consult Reason/Comments: PICC LINE APPROVAL Do you want consulting provider notified?: Yes Primary care physician: Micheal Lopez - Discharge Diagnosis(es) (1) Diabetes Current Visit: Yes Status: Acute (2) CAD (coronary artery disease) Current Visit: Yes Status: Acute (3) Hypertension Current Visit: Yes Status: Acute (4) Osteomyelitis of great toe of left foot Current Visit: Yes Status: Acute Hospital Course: This discharge summary on a 74-year-old white male essentially admitted for diabetic foot ulcer on the left toe with possible cellulitis and osteomyelitis after being seen by the finance director last week. The patient was admitted for appropriate treatment and placed on empiric antibiotic therapy. After infectious disease consultation the patient was placed on appropriate ceftriaxone 2 g for about 6 weeks. PICC line was placed and the patient was stabilized in appropriate condition. The patient will follow-up with me in about a week. Patient Condition at Discharge: Stable Plan - Discharge Summary Discharge Rx Participant: Yes New Discharge Prescriptions: New cefTRIAXone [Rocephin] 2 gm IVPB Q24H 42 Days #42 bag Continue Multivitamin [Men's Multi-Vitamin] 1 tab PO DAILY Aspirin EC [Ecotrin] 325 mg PO DAILY metFORMIN HCL 1,000 mg PO BID-W/MEALS Cholecalciferol [Vitamin D3 (10 Mcg = 400 Iu)] 10 mcg PO DAILY Terbinafine [LamISIL] 250 mg PO DAILY Psyllium Husk 100% [Metamucil Packet] 6 gm PO PC-BID Pioglitazone [Actos] 30 mg PO DAILY Atorvastatin [Lipitor] 40 mg PO HS lisinopriL [Zestril] 5 mg PO DAILY Discontinued Ciprofloxacin HCl [Cipro] 500 mg PO Q12HR Discharge Medication List Multivitamin [Men's Multi-Vitamin] 1 tab PO DAILY 12/25/14 [History] Aspirin EC [Ecotrin] 325 mg PO DAILY 06/27/17 [History] Atorvastatin [Lipitor] 40 mg PO HS 08/12/20 [History] Cholecalciferol [Vitamin D3 (10 Mcg = 400 Iu)] 10 mcg PO DAILY 08/12/20 [History] Pioglitazone [Actos] 30 mg PO DAILY 08/12/20 [History] lisinopriL [Zestril] 5 mg PO DAILY 08/12/20 [History] metFORMIN HCL 1,000 mg PO BID-W/MEALS 08/12/20 [History] Psyllium Husk 100% [Metamucil Packet] 6 gm PO PC-BID 09/01/20 [History] Terbinafine [LamISIL] 250 mg PO DAILY 09/01/20 [History] cefTRIAXone [Rocephin] 2 gm IVPB Q24H 42 Days #42 bag 09/08/20 [Rx] Follow up Appointment(s)/Referral(s): Michael Lopez MD [Primary Care Provider] - 1-2 days [facility], [NON-STAFF] - As Needed [facility],Infusion [NON-STAFF] - As Needed Activity/Diet/Wound Care/Special Instructions: IF pt discharges this weekend please call weekend [facility] #[phone] and [facility] #[phone] to finalize arrangements
[2020-09-08] MEDS ORDERED: FAMOTIDINE 20 MG TAB PO SCH (09:00)
[2020-09-08] MEDS: SODIUM CHLORIDE 0.9% 1,000 ML IV SCH (09:47)
[2020-09-08 11:19] LABS: African American GFR (CKD) 38.8 (60.0-200.0); BUN/Creat Ratio 13.16 Ratio (12.00-20.00); C Reactive Protein <0.4 mg/dL (0.0-0.8); Carbon Dioxide 24.7 mmol/L (21.6-31.8); Chloride 110 mmol/L (96-109); Glucose 121 mg/dL (70-110); Non-African American GFR(CKD) 33.5 (60.0-200.0); Potassium 4.6 mmol/L (3.5-5.5); Sodium 143 mmol/L (135-145)
[2020-09-08 12:02] LABS: Glucose,Whole Blood 120 mg/dL (75-99)
--- NOTE | 2020-09-08 13:23 | P.PN ---
Subjective Patient is seen in follow-up for acute kidney injury. Renal function improving. Oral intake is good. Good urine output. No vomiting or diarrhea. Wants to go home. Vital signs are stable. General: The patient appeared well nourished and normally developed. HEENT: Head exam is unremarkable. Neck is without jugular venous distension. LUNGS: Breath sounds decreased. HEART: Rate and Rhythm are regular. ABDOMEN: Soft, no distention. EXTREMITITES: 1+ edema. No drainage noted. Objective - Vital Signs Vital signs: Vital Signs Temp 97.6 F 09/08/20 07:50 Pulse 84 09/08/20 07:50 Resp 16 09/08/20 07:50 BP 148/77 09/08/20 07:50 Pulse Ox 100 09/08/20 07:50 Intake & Output 09/07/20 09/08/20 09/08/20 18:59 06:59 18:59 Intake Total 900 Balance 900 Intake: Intake, IV Titration 250 Amount Ampicillin-Sulbactam 3 gm 100 In Sodium Chloride 0.9% 100 ml @ 200 mls/hr IVPB Q8H SUSIE Rx#:[id number] Sodium Chloride 0.9% 1, 150 000 ml @ 75 mls/hr IV . [id number] SUSIE Rx#:[id number] Oral 650 Other: Voiding Method Toilet Toilet Urinal Urinal # Voids 3 - Labs CBC & Chem 7: 09/04/20 06:39 09/08/20 06:27 Labs: Abnormal Lab Results - Last 24 Hours (Table) 09/07/20 09/07/20 09/08/20 Range/Units 17:14 20:42 06:27 ESR 63 H (0-20) mm/Hr Chloride (96-109) mmol/L Creatinine (0.6-1.5) mg/dL Est GFR (CKD-EPI)AfAm (60.0-200.0) Est GFR (CKD-EPI)NonAf (60.0-200.0) Glucose (70-110) mg/dL POC Glucose (mg/dL) 112 H 130 H (75-99) mg/dL 09/08/20 09/08/20 09/08/20 Range/Units 06:27 07:05 12:01 ESR (0-20) mm/Hr Chloride 110 H (96-109) mmol/L Creatinine 1.9 H (0.6-1.5) mg/dL Est GFR (CKD-EPI)AfAm 38.8 L (60.0-200.0) Est GFR (CKD-EPI)NonAf 33.5 L (60.0-200.0) Glucose 121 H (70-110) mg/dL POC Glucose (mg/dL) 100 H 120 H (75-99) mg/dL Assessment and Plan Plan: Assessment: 1. Acute kidney injury secondary to ATN secondary to hypotension home infection as well as vancomycin. Renal function improving. Creatinine 1.9 today. Baseline creatinine near 1. 2. Left foot osteomyelitis maintained on antibiotics. 3. Benign hypertension. Stable. 4. Diabetes mellitus. Plan: Encourage oral intake. Avoid nephrotoxins. Check UA and renal ultrasound. Anticipate discharge soon. Follow up outpatient in 1 week. Repeat BMP and magnesium level 2-3 days postdischarge.
[2020-09-08 14:43] VITALS: BMI 23.3
--- NOTE | 2020-09-08 16:05 | PN ---
PROGRESS NOTE DATE OF SERVICE: 09/08/2020. REASON FOR FOLLOWUP: Left big toe osteomyelitis. INTERVAL HISTORY: The patient is currently afebrile. Patient is breathing comfortably. The patient denies having any chest pain, no shortness of breath or cough. No abdominal pain or pain to the left big toe. PHYSICAL EXAMINATION: Blood pressure 148/77 with a pulse of 84, temperature is 97.6. He is 100% on room air. General description is a middle-aged male up in the chair in no distress. RESPIRATORY SYSTEM: Unlabored breathing, clear to auscultation anteriorly. HEART: S1, S2. Regular rate and rhythm. ABDOMEN: Soft, no tenderness. Left big toe is currently dressed up, no obvious drainage on the dressing. LABS: Sed rate has come down to 63 with CRP 0.4. DIAGNOSTIC IMPRESSION AND PLAN: Patient with left big toe osteomyelitis. Plan is for Rocephin 2 grams daily for total of 6 weeks with weekly monitoring of CBC, BMP close outpatient followup. MMODL / IJN: [id number] /
--- NOTE | 2020-09-08 16:29 | US ---
EXAMINATION TYPE: US kidneys/renal and bladder DATE OF EXAM: 09/08/2020 COMPARISON: NONE CLINICAL HISTORY: Acute renal. Injury EXAM MEASUREMENTS: Right Kidney: 10.4 x 5.2 x 5.5cm Left Kidney: 10.5 x 5.8 x 5.7 cm Right Kidney: 10.4 x 5.2 x 5.5cm Left Kidney: 10.5 x 5.8 x 5.7 Bladder: wnl ureteral jets are not visualized. No hyperdense of hydronephrosis or shadowing renal calculi. IMPRESSION: No evidence of hydronephrosis or shadowing renal calculi. The ureteral jets are not visualized.
--- NOTE | 2020-10-02 08:06 | CDI ---
Documentation Clarification Form Date: 10/02/20 From: Estelle Ornelas Admit Date: 09/01/2020 04:16:00 PM Patient Name: Ayo Turner Visit Number: [id number] Discharge Date: 09/08/2020 03:10:00 PM ATTENTION: The Clinical Documentation Specialists (CDI) and [facility] Coding Staff appreciate your assistance in clarifying documentation. Please respond to the clarification below the line at the bottom and electronically sign. The CDI & [facility] Coding staff will review the response and follow-up if needed. Please note: Queries are made part of the Legal Health Record. If you have any questions, please contact the author of this message via ITS. Dr. Michael Lopez, Osteomyelitis of left big toes is documented ED note, H&P, consults by Dr Mcdaniels & Dr Lawrence multiple PNs and DS. Additional clarification regarding the cause and acuity of the osteomyelitis is requested. History/Risk Factors: DM, HTN, ATN Clinical Indicators: He was recently seen at [facility] by Dr. Jame Queen. They note that they referred him to one of the facilities that he has privileges at that noted that [facility] is closer to home and that they would prefer to come here. Upon his follow-up visit today x-ray noted radiographic changes consistent with osteomyelitis. He has cellulitis extending proximal to the left first MPJ. The wound is located at the distal aspect of the left hallux that probes directly to the bone. Labs: WBC-5.2, ESR-90, /17 X-Ray Results: Findings consistent with osteomyelitis first digit left foot Treatment: IV Unasyn, IV Vancomycin, Please clarify the acuity of the osteomyelitis, if known: Acuity: [ x] Acute osteomyelitis [ ] Chronic osteomyelitis [ ] Subacute osteomyelitis [ ] Unable to Determine MTDD
== END 2020-09-08 15:10 | disposition home health service (06) | DRG 638 ==
LOC: EC 13:32 → 4SSUR 16:16
PROVIDERS: ADMIT Family Medicine; ATTEND Family Medicine
PROC: 02HV33Z Insertion of Infusion Device into Superior Vena Cava, Percutaneous Approach (ICD-10-PCS; principal; 2020-09-05 10:35)
DX: E11.69 Type 2 diabetes mellitus with other specified complication (principal); M86.172 Other acute osteomyelitis, left ankle and foot; N17.0 Acute kidney failure with tubular necrosis; E11.621 Type 2 diabetes mellitus with foot ulcer; E11.628 Type 2 diabetes mellitus with other skin complications; L97.529 Non-pressure chronic ulcer of other part of left foot with unspecified severity; I95.9 Hypotension, unspecified; L03.032 Cellulitis of left toe; Z20.822 Contact with and (suspected) exposure to COVID-19; T36.8X5A Adverse effect of other systemic antibiotics, initial encounter; E78.5 Hyperlipidemia, unspecified; I10 Essential (primary) hypertension; I65.23 Occlusion and stenosis of bilateral carotid arteries; I25.10 Atherosclerotic heart disease of native coronary artery without angina pectoris; Z79.82 Long term (current) use of aspirin; Z79.84 Long term (current) use of oral hypoglycemic drugs; Z79.899 Other long term (current) drug therapy; Z87.19 Personal history of other diseases of the digestive system; Z87.891 Personal history of nicotine dependence; Z80.9 Family history of malignant neoplasm, unspecified
CPT/HCPCS: 36415; 36573; 76770; 80048; 80053; 80202; 82565; 85025; 85027; 85610; 85652; 85730; 86140; 87070; 87205; 87635; 93970; 99284

== ENCOUNTER → 2020-11-12 | Outpatient (CLI) | payer MEDICARE ==
[2020-11-12 20:06] LABS: Basophils # (A) 0.02 X 10*3/uL (0.00-0.10); Basophils % (A) 0.4 %; Eosinophils # (A) 0.07 X 10*3/uL (0.04-0.35); Eosinophils % (A) 1.3 %; HCT 34.2 % (39.6-50.0); HGB 10.9 g/dL (13.0-17.0); Lymphocytes # (A) 1.83 X 10*3/uL (0.90-5.00); MCH 31.4 pg (27.0-32.0); MCHC 31.9 g/dL (32.0-37.0); MCV 98.6 fL (80.0-97.0); Mean Platelet Volume 10.6 fL (9.5-12.2); Monocytes # (A) 0.51 X 10*3/uL (0.20-1.00); Monocytes % (A) 9.8 %; Neutrophils # (A) 2.79 X 10*3/uL (1.80-7.70); Neutrophils % (A) 53.3 %; Platelet Count 219 X 10*3/uL (140-440); RBC 3.47 X 10*6/uL (4.40-5.60); RDW 15.1 % (11.5-14.5); WBC 5.23 X 10*3/uL (4.50-10.00)
[2020-11-12 21:38] LABS: Erythrocyte Sedimentation Rate 38 mm/Hr (0-20)
[2020-11-13 02:33] LABS: African American GFR (CKD) 74.7 (60.0-200.0); BUN/Creat Ratio 18.18 Ratio (12.00-20.00); C Reactive Protein <0.4 mg/dL (0.0-0.8); Calcium 8.8 mg/dL (8.7-10.3); Carbon Dioxide 22.2 mmol/L (21.6-31.8); Chloride 107 mmol/L (96-109); Glucose 152 mg/dL (70-110); Non-African American GFR(CKD) 64.4 (60.0-200.0); Potassium 4.4 mmol/L (3.5-5.5); Sodium 140 mmol/L (135-145)
== END | disposition home or self-care (01) ==
LOC: LABWHC1 12:08
PROVIDERS: ATTEND Internal Medicine Infectious Disease
DX: M86.172 Other acute osteomyelitis, left ankle and foot (principal)
CPT/HCPCS: 36415; 80048; 85025; 85652; 86140

== ENCOUNTER 2022-04-08 08:40 | Inpatient (IN) | payer MEDICARE ==
[2022-04-08] MEDS ORDERED: NITROGLYCERIN SL TABS 0.4 MG TAB SUBLINGUAL PRN (12:06)
[2022-04-08] MEDS ORDERED: ALPRAZolam 0.5 MG TAB PO PRN (12:06)
[2022-04-08] MEDS ORDERED: ALPRAZolam 0.25 MG TAB PO PRN (12:06)
--- NOTE | 2022-04-08 12:50 | P.CRDCN ---
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 He has past medical history significant for peripheral vascular disease, known carotid occlusion follows with Dr. Lawrence, Dm type 2, hypertension, hyperlipidemia. Patient presented to the hospital for an outpatient Lexiscan stress test. Patient states he has been having chest pain for the past 1-2 weeks with exertion. He also sometimes gets some shortness of breath. Due to patient's symptoms, stress test was canceled and Dr. Lopez was contacted. Patient is then scheduled for cardiac catheterization for tomorrow. Review Of Systems: At the time of my evaluation Constitutional: No fever, no chills. No weakness, fatigue or lethargy. EENT: No headache. No dizziness. Lungs: No shortness of breath, cough, no sputum production. No wheezing. Cardiovascular: No chest pain, no lower extremity edema. No palpitations. No paroxysmal nocturnal dyspnea. No orthopnea. No lightheadedness or dizziness. No syncopal episodes. Abdominal: No abdominal pain. No nausea, vomiting. No diarrhea. No constipation. No bloody or tarry stools.. No loss of appetite. Genitourinary: No dysuria.. No urinary retention. Musculoskeletal: No myalgias. No muscle weakness, no gait dysfunction, no frequent falls. No back pain. No neck pain. Integumentary: No wounds. No rash or pruritus. No unusual bruising. Neurologic: No aphasia. No facial droop. No change in mentation. No head injury. No headache. No paralysis. No paresthesia. Psychiatric: No depression. No anxiety. Endocrine: No abnormal blood sugars. Physical examination: Gen: This is a 76-year-old male. He is resting on the stretcher and appears to be comfortable. VS: reviewed HEENT: Head is atraumatic, normocephalic. Pupils equal, round. Sclerae is anicteric. NECK: Supple. No JVD. LUNGS: Clear to auscultation. No wheezes or rhonchi. No intercostal retractions. HEART: Regular rate and rhythm. 2/6 systolic murmur right sternal border. ABDOMEN: Soft. No masses. No tenderness. EXTREMITIES: No pedal edema. No calf tenderness. NEUROLOGICAL: Patient is awake, alert and oriented x3. Assessment: Exertional chest pain, rule out coronary artery disease Hypertension Hyperlipidemia Carotid artery stenosis Diabetes mellitus type 2 Peripheral vascular disease Plan: Patient will be scheduled for cardiac catheterization tomorrow morning with Dr. Bedoya Obtain 2-D echocardiogram and Doppler study to assess cardiac structure and function Further recommendations to follow based upon clinical course Thank you kindly for this consultation. Nurse practitioner note has been reviewed, I agree with documented findings and plan of care. Patient was seen and examined. Past Medical History Past Medical History: Coronary Artery Disease (CAD), Diabetes Mellitus, GI Bleed, Hyperlipidemia, Hypertension Additional Past Medical History / Comment(s): rectal bleeding/diverticulitis; poor circ. slight blockage carotid arteries. History of Any Multi-Drug Resistant Organisms: None Reported Additional Past Surgical History / Comment(s): hemorrhoidectomy, colonoscopy. Past Anesthesia/Blood Transfusion Reactions: No Reported Reaction Past Psychological History: No Psychological Hx Reported Smoking Status: Former smoker Past Alcohol Use History: Occasional Additional Past Alcohol Use History / Comment(s): Smoked for 50 years, quit 8 years ago. Past Drug Use History: None Reported - Past Family History Father Family Medical History: Cancer Mother Family Medical History: Cancer Medications and Allergies Home Medications Medication Instructions Recorded Confirmed Type Multivitamin [Men's Multi-Vitamin] 1 tab PO DAILY 12/25/14 09/01/20 History Aspirin EC [Ecotrin] 325 mg PO DAILY 06/27/17 09/01/20 History Atorvastatin [Lipitor] 40 mg PO HS 08/12/20 09/01/20 History Cholecalciferol [Vitamin D3 (10 10 mcg PO DAILY 08/12/20 09/01/20 History Mcg = 400 Iu)] Pioglitazone [Actos] 30 mg PO DAILY 08/12/20 09/01/20 History lisinopriL [Zestril] 5 mg PO DAILY 08/12/20 09/01/20 History metFORMIN HCL [Glucophage] 1,000 mg PO BID-W/MEALS 08/12/20 09/01/20 History Psyllium Husk 100% [Metamucil 6 gm PO PC-BID 09/01/20 09/01/20 History Packet] Terbinafine [LamISIL] 250 mg PO DAILY 09/01/20 09/01/20 History cefTRIAXone [Rocephin] 2 gm IVPB Q24H 42 Days #42 bag 09/08/20 Rx Allergies Allergy/AdvReac Type Severity Reaction Status Date / Time No Known Allergies Allergy Verified 09/01/20 15:56
[2022-04-08 13:24] LABS: African American GFR (CKD) >90 (>60 ml/min/1.73 sqM); Anion Gap 4 mmol/L; Blood Urea Nitrogen 29 mg/dL (9-20); Calcium 8.6 mg/dL (8.4-10.2); Carbon Dioxide 26 mmol/L (22-30); Chloride 109 mmol/L (98-107); Glucose 117 mg/dL (74-99); Non-African American GFR(CKD) 79 (>60 ml/min/1.73 sqM); Potassium 4.1 mmol/L (3.5-5.1); Sodium 139 mmol/L (137-145)
--- NOTE | 2022-04-08 15:16 | NM ---
EXAMINATION TYPE: NM myocardial SPECT single DATE OF EXAM: 04/08/2022 COMPARISON: NONE HISTORY: 76-year-old male I20.9, angina pectoris. Following administration of 9.7 mCi Tc 99m Sestamibi. Images obtained 45 minutes post injection. FINDINGS: Only rest imaging is performed. There is a large perfusion defect involving the mid to basal inferior wall and moderate size involving the inferolateral apical wall. IMPRESSION: Only rest imaging performed. Correlate for prior inferior wall infarct extending to the inferolateral wall along the apical portion.
[2022-04-09] MEDS ORDERED: ATORVASTATIN 80 MG TAB PO ONE (06:00)
[2022-04-09] MEDS ORDERED: ASPIRIN 325 MG TAB PO ONE (06:00)
[2022-04-09] MEDS ORDERED: HEPARIN SODIUM,PORCINE 10,000 UNIT in SODIUM CHLORIDE 0.9% 1,000 ML IRRIGATION PRN (07:00)
[2022-04-09] MEDS ORDERED: HEPARIN SODIUM,PORCINE 2,500 UNIT in SODIUM CHLORIDE 0.9% 250 ML IRRIGATION PRN (07:00)
[2022-04-09] MEDS ORDERED: VERAPAMIL 2.5 MG/ML 2 ML AMP ONE (07:28)
[2022-04-09] MEDS ORDERED: SODIUM CHLORIDE 0.9% 500 ML 500 ML IV ONE (07:38)
--- NOTE | 2022-04-09 08:01 | CA ---
Transthoracic Echo Report Name: Ayo Turner Age: 76 Gender: M : 1945 Exam Date: 04/08/2022 14:36 Exam Location: [facility] Ht (in): 72 Wt (lb): 182 Ordering Physician: Milli Ambrosio Attending/Referring Phys: [id number], [place] Head Butler Jackie Carmona RDCS Procedure CPT: Indications: LVF Cardiac Hx: Technical Quality: Fair Contrast 1: Total Dose (mL): Contrast 2: Total Dose (mL): MEASUREMENTS (Male / Female) Normal Values 2D ECHO LV Diastolic Diameter PLAX 4.9 cm 4.2 - 5.9 / 3.9 - 5.3 cm LV Systolic Diameter PLAX 2.3 cm IVS Diastolic Thickness 0.9 cm 0.6 - 1.0 / 0.6 - 0.9 cm LVPW Diastolic Thickness 1.1 cm 0.6 - 1.0 / 0.6 - 0.9 cm LV Relative Wall Thickness 0.4 RV Internal Dim ED PLAX 4.4 cm LVOT Diameter 1.8 cm LA Volume 72.3 cm??? 18 - 58 / 22 - 52 cm??? M-MODE Aortic Root Diameter MM 2.9 cm LA Systolic Diameter MM 4.9 cm LA Ao Ratio MM 1.7 AV Cusp Separation MM 1.0 cm DOPPLER AV Peak Velocity 311.3 cm/s AV Peak Gradient 38.8 mmHg AV Mean Velocity 208.0 cm/s AV Mean Gradient 20.1 mmHg AV Velocity Time Integral 77.6 cm LVOT Peak Velocity 118.9 cm/s LVOT Peak Gradient 5.7 mmHg LVOT Velocity Time Integral 27.1 cm LVOT Stroke Volume 69.4 cm??? LVOT Stroke Volume Index 33.9 ml/m??? LVOT Cardiac Index 3008.4 cm???/min???m??? AV Area Cont Eq vti 0.9 cm??? AV Area Cont Eq pk 1.0 cm??? MV Area PHT 2.3 cm??? Mitral E Point Velocity 120.7 cm/s Mitral A Point Velocity 105.9 cm/s Mitral E to A Ratio 1.1 MV Deceleration Time 324.6 ms TR Peak Velocity 302.1 cm/s TR Peak Gradient 36.5 mmHg Right Ventricular Systolic Press 40.9 mmHg FINDINGS Left Ventricle Normal Left ventricular size, wall thickness, systolic function with no obvious regional wall motion abnormalities. Normal Left ventricular diastolic filling pattern. Left ventricular ejection fraction is estimated at 55 %. Right Ventricle Mild right ventricular dilatation. Mild pulmonary hypertension. Right ventricular systolic pressure estimated at 41 mm hg. Right Atrium Normal right atrial size. Left Atrium Moderately increased left atrial volume. Mildly increased left atrial area. Mitral Valve Structurally normal mitral valve. Mild mitral annular calcification. Mild mitral regurgitation. Centrally directed mitral regurgitation jet. Aortic Valve Mild aortic stenosis with a peak gradient of 39 mmHg and a mean gradient of 20 mmHg. Trace aortic regurgitation. Tricuspid Valve Mild tricuspid regurgitation. Pulmonic Valve Trace pulmonic regurgitation. Pericardium No pericardial effusion. Aorta Normal size aortic root and proximal ascending aorta. CONCLUSIONS Normal biventricular dimension and systolic function Moderate aortic stenosis. Mean gradient of 20 mmHg Mild mitral regurgitation Previewed by: Dr. Amador Bedoya MD (Electronically Signed) Final Date: 09 April 2022 08:00
[2022-04-09] MEDS ORDERED: LIDOCAINE 2% (PF) 20 MG/ML 5 ML VIAL SQ ONE ×2 (08:03→08:05)
[2022-04-09] MEDS ORDERED: MIDAZOLAM 2 MG/2 ML VIAL IV ONE (08:05)
[2022-04-09] MEDS ORDERED: VERAPAMIL SYRINGE (5 MG/10 ML) INTRAARTER ONE (08:05)
[2022-04-09] MEDS: HEPARIN SODIUM 1,000 UN/ML (10ML VL) IV ONE ×2 (08:10→08:16)
[2022-04-09 08:14] LABS: Anisocytosis Slight; Basophils % (A) 1 %; Eosinophils # (A) 0.1 k/uL (0-0.7); Eosinophils % (A) 2 %; HCT 26.2 % (39.0-53.0); HGB 7.4 gm/dL (13.0-17.5); Hypochromasia Marked; Lymphocytes # (A) 1.6 k/uL (1.0-4.8); Lymphocytes % (A) 25 %; MCH 26.8 pg (25.0-35.0); MCHC 28.1 g/dL (31.0-37.0); MCV 95.3 fL (80.0-100.0); Mean Platelet Volume 9.6; Monocytes # (A) 0.3 k/uL (0-1.0); Monocytes % (A) 4 %; Neutrophils # (A) 4.1 k/uL (1.3-7.7); Neutrophils % (A) 65 %; Platelet Count 346 k/uL (150-450); RBC 2.75 m/uL (4.30-5.90); RDW 16.7 % (11.5-15.5); WBC 6.4 k/uL (3.8-10.6)
--- NOTE | 2022-04-09 08:14 | P.HPIM ---
History of Present Illness H&P Date: 04/09/22 Chief Complaint: Angina This is a 76-year-old white male who summoned office underlying history of hypertension he stated exertional angina EKG did not show significant change with no enzymatic elevation but given his symptoms we sent her for Nena scan. The patient was evaluated by cardiology and given his overall condition and risk factors, the patient was admitted for appropriate cardiac catheterization. Review of Systems Constitutional: Denies chills, Denies fever Eyes: denies blurred vision, denies pain Ears, nose, mouth and throat: Denies headache, Denies sore throat Cardiovascular: Reports as per HPI, Reports chest pain Gastrointestinal: Denies abdominal pain, Denies diarrhea, Denies nausea, Denies vomiting Musculoskeletal: Denies myalgias Past Medical History Past Medical History: Coronary Artery Disease (CAD), Diabetes Mellitus, GI Bleed, Hyperlipidemia, Hypertension Additional Past Medical History / Comment(s): rectal bleeding/diverticulitis; poor circ. slight blockage carotid arteries. History of Any Multi-Drug Resistant Organisms: None Reported Additional Past Surgical History / Comment(s): hemorrhoidectomy, colonoscopy. Past Anesthesia/Blood Transfusion Reactions: No Reported Reaction Past Psychological History: No Psychological Hx Reported Smoking Status: Former smoker Past Alcohol Use History: Occasional Additional Past Alcohol Use History / Comment(s): Smoked for 50 years, quit 8 years ago. Past Drug Use History: None Reported - Past Family History Father Family Medical History: Cancer Mother Family Medical History: Cancer Medications and Allergies Home Medications Medication Instructions Recorded Confirmed Type RX: Aspirin EC [Ecotrin] 325 mg PO DAILY 06/27/17 04/08/22 History RX: Atorvastatin [Lipitor] 40 mg PO HS 08/12/20 04/08/22 History RX: Pioglitazone [Actos] 30 mg PO DAILY 08/12/20 04/08/22 History RX: lisinopriL [Zestril] 5 mg PO DAILY 08/12/20 04/08/22 History Cholecalciferol [Vitamin D3 (25 50 mcg PO DAILY 04/08/22 04/08/22 History Mcg = 1000 Iu)] Ferrous Sulfate [Feosol] 325 mg PO MOWEFR 04/08/22 04/08/22 History Multivit-Min/FA/Lycopen/Lutein 1 tab PO DAILY 04/08/22 04/08/22 History [Centrum Silver Men Tablet] Nitroglycerin Sl Tabs [Nitrostat] 0.4 mg SUBLINGUAL Q5M PRN 04/08/22 04/08/22 History Allergies Allergy/AdvReac Type Severity Reaction Status Date / Time No Known Allergies Allergy Verified 04/08/22 16:37 Physical Exam Vitals: Vital Signs Temp Pulse Pulse Resp BP BP Pulse Ox 04/09/22 06:45 97.8 F 66 18 125/60 95 04/09/22 02:06 69 16 04/09/22 00:41 98.0 F 82 19 145/65 97 04/08/22 20:21 69 16 04/08/22 19:03 97.7 F 69 16 111/56 100 04/08/22 15:00 97.4 F L 63 16 117/49 98 04/08/22 13:30 18 Intake and Output 04/08/22 04/09/22 04/09/22 22:59 06:59 14:59 Output Total 1 Balance -1 Output: Urine 1 Other: # Voids 1 - Constitutional General appearance: no acute distress - EENT Eyes: EOMI - Neck Neck: no lymphadenopathy - Respiratory Respiratory: bilateral: CTA - Cardiovascular Rhythm: regular Heart sounds: normal: S1, S2 Abnormal Heart Sounds: no S3 Gallop - Gastrointestinal General gastrointestinal: soft, no tenderness - Neurologic Neurologic: CNII-XII intact Results CBC & Chem 7: 04/08/22 12:54 Labs: Abnormal Lab Results - Last 24 Hours (Table) 04/08/22 Range/Units 12:54 Chloride 109 H (98-107) mmol/L BUN 29 H (9-20) mg/dL Glucose 117 H (74-99) mg/dL Thrombosis Risk Factor Assmnt - Choose All That Apply Each Risk Factor Represents 3 Points: Age 75 years or older Thrombosis Risk Factor Assessment Total Risk Factor Score: 3 Thrombosis Risk Factor Assessment Level: Moderate Risk Assessment and Plan (1) Angina at rest Current Visit: Yes Status: Acute Code(s): I20.8 - OTHER FORMS OF ANGINA PECTORIS SNOMED Code(s): 596810614 (2) CAD (coronary artery disease) Current Visit: No Status: Acute Code(s): I25.10 - ATHSCL HEART DISEASE OF [place] CORONARY ARTERY W/O ANG PCTRS SNOMED Code(s): 16246643 (3) Diabetes Current Visit: No Status: Acute Code(s): E11.9 - TYPE 2 DIABETES MELLITUS W ITHOUT COMPLICATIONS SNOMED Code(s): 79158888 (4) Hypertension Current Visit: No Status: Acute Code(s): I10 - ESSENTIAL (PRIMARY) HYPERTENSION SNOMED Code(s): 60941658 Plan: Appropriate cardiac catheterization. Reconcile medications. Await procedure will results. The patient is otherwise full code
[2022-04-09 08:38] LABS: Anisocytosis Slight; Basophils % (A) 0 %; Eosinophils # (A) 0.1 k/uL (0-0.7); Eosinophils % (A) 2 %; Hypochromasia Marked; Lymphocytes # (A) 1.2 k/uL (1.0-4.8); Lymphocytes % (A) 31 %; MCH 28.6 pg (25.0-35.0); MCHC 32.2 g/dL (31.0-37.0); Monocytes # (A) 0.3 k/uL (0-1.0); Monocytes % (A) 7 %; Neutrophils # (A) 2.3 k/uL (1.3-7.7); Neutrophils % (A) 58 %; Platelet Count 255 k/uL (150-450); RBC 1.95 m/uL (4.30-5.90); RDW 16.3 % (11.5-15.5)
[2022-04-09] MEDS ORDERED: DOPamine DRIP 800 MG in DEXTROSE/WATER 1 250ML.BAG IV ONE (08:38)
[2022-04-09] MEDS ORDERED: fentaNYL (PF) 50 MCG/ML 2 ML AMP ONE (08:42)
[2022-04-09 08:43] LABS: HCT 17.3 % (39.0-53.0); HGB 5.6 gm/dL (13.0-17.5)
[2022-04-09 08:44] LABS: MCV 88.8 fL (80.0-100.0)
[2022-04-09] MEDS ORDERED: fentaNYL (PF) 50 MCG/ML 2 ML AMP IV ONE (08:45)
[2022-04-09 08:46] LABS: Rouleaux Present
[2022-04-09] MEDS ORDERED: NITROGLYCERIN 1000MCG/10ML SYRINGE INTRACORON ONE (08:47)
[2022-04-09] MEDS ORDERED: IOPAMIDOL-370 125ML BTL INJ ONE (08:49)
[2022-04-09] MEDS ORDERED: NITROGLYCERIN SL TABS 0.4 MG TAB SUBLINGUAL ONE ×2 (08:52→08:57)
[2022-04-09] MEDS ORDERED: MORPHINE SULFATE 4 MG/ML SYRINGE ONE (09:00)
[2022-04-09] MEDS ORDERED: NON FORMULARY DRUG (Multivit-Min/Fa/Lycopen/Lutein [Centrum Silver Men Tablet] 1 EACH Tabl PO SCH (09:00)
[2022-04-09] MEDS ORDERED: MORPHINE SULFATE 4 MG/ML SYRINGE IV ONE (09:02)
[2022-04-09] MEDS ORDERED: ATROPINE SULFATE 0.1 MG/ML 10ML SYRINGE IV PRN (09:12)
[2022-04-09] MEDS ORDERED: ZOLPIDEM 5 MG TAB PO PRN (09:12)
[2022-04-09] MEDS ORDERED: RX INFO: IV CONTRAST WAS GIVEN 1 EACH MISC MISCELLANE PRN (09:12)
[2022-04-09] MEDS ORDERED: MAG HYDROX/AL HYDROX/SIMETH 30 ML CUP PO PRN (09:12)
[2022-04-09] MEDS ORDERED: NITROGLYCERIN SL TABS 0.4 MG TAB SUBLINGUAL PRN (09:12)
[2022-04-09] MEDS ORDERED: SODIUM CHLORIDE 0.9% 1,000 ML in EMPTY BAG 1 BAG IV SCH (09:15)
--- NOTE | 2022-04-09 09:23 | P.PCN ---
Date of Procedure: 04/09/22 Operative Findings: CARDIAC CATHETERIZATION AND PERCUTANEOUS CORONARY INTERVENTION PERFORMING PHYSICIAN: Amador Bedoya MD, RPVI PROCEDURE PERFORMED: 1. Selective right and left coronary angiogram 2. Left heart catheterization 3. PTCA of the right coronary artery 4. Placement of transvenous pacer through the right common femoral vein INDICATION: This is a 76-year-old gentleman with a past medical history significant for hypertension and dyslipidemia who was experiencing symptoms of chest discomfort with exertion consistent with angina. In the light of that heart catheterization was advised. COMPLICATION: None APPROACH: Right radial artery LEVEL OF SEDATION: Moderate with a sedation length of 55 minutes PROCEDURE DESCRIPTION: After obtaining an informed consent, the patient was brought to cardiac lab intern. Local anesthesia was performed using lidocaine subcutaneously. The right radial artery was cannulated using Seldinger technique, the guidewire passed easily, following that we advanced a 5-[place] sheath dilator assembly, the wire and dilator were removed and sheath was flushed. Following that, 2 mg of verapamil along with 5000 unit heparin were given. Selective right and left coronary angiogram using a 6-[place] JR4 and JL 3.5 catheters. Following that we did left heart catheterization using 6-[place] pigtail catheter. The procedure was completed there was no complication. SELECTIVE CORONARY ANGIOGRAM: The right coronary artery: Large caliber vessel and a dominant vessel. The RCA is calcified. The mid RCA has a critical lesion appeared to be in the range of 80-90%. Left main: Has mild disease distally appears to be in the range of 30%. The left circumflex: Large-caliber vessel a codominant vessel. The proximal LCx gives rises into a large OM branch which appears to have a tight lesion in the range of 60%. The circumflex itself by the bifurcation of OM1 has a lesion appeared to be in the range of 70%. The circumflex distally appeared to have mild disease only and gives rises into PDA and PLV branches both appear to have mild disease only. The left anterior descending artery: Large caliber vessel. The LAD in the midportion has mild disease only. It gives rises into a large diagonal branch which also has mild disease only. HEMODYNAMICS: The LVEDP was 8 mmHg. PCI OF THE RCA: Anticoagulation was initiated using heparin with continuous ACT monitoring. Subsequently the RCA was engaged using an AL 0.75 guiding catheter. I did wire the right coronary artery using a whisper wire. Attempting advancing 1.5 balloon was an successful. Attempting advancing 1.0 balloon was also unsuccessful but was successful with adjunctive use of guide liner to the proximal to mid RCA. The balloon did not cross all the way to the mid to distal RCA were there was another tight lesion. Upon starting doing PTCA with received a call about the patient hemoglobin of 5.3. At this point I decided to abort the procedure. I did perform an angiogram of the right coronary artery and that showed CÉSAR-3 flow with a stable lesions and no dissection noted. The patient did experience mild chest discomfort but we did perform transcutaneous pacing because his heart rate did drop before we put transvenous pacer on him. He was stable into of blood pressure and heart rate at the end of the procedure. He was stable into of any EKG changes and no ischemic changes noted. I did inform the primary care physician, Dr. Lopez about the patient. He will be admitted to the third floor/cardiac unit and 2 units of packed RBC to be given. CONCLUSION: 1. Critical disease involving the mid right coronary artery. 2. Severe disease involving the proximal LCx 3. PTCA ballooning of the right coronary artery POSTPROCEDURE MANAGEMENT: Blood transfusion. Rule out GI bleeding. Further recommendation to follow by the internal medicine team. Meanwhile single antiplatelet with aspirin alone. Intermediate intensity statin. Anti-ischemic medication using beta rishi and oral nitrate and Ranexa.
[2022-04-09 09:34] LABS: Glucose,Whole Blood 136 mg/dL (70-110)
[2022-04-09 09:47] LABS: Glucose,Whole Blood 147 mg/dL (70-110)
--- NOTE | 2022-04-09 10:04 | CT ---
EXAMINATION TYPE: CT brain wo con for TPA DATE OF EXAM: 04/09/2022 COMPARISON: None HISTORY: Neuro symptoms CT DLP: [address] of the brain was performed. The ventricles, basal cisterns and sulci overlying the cerebral convexities demonstrate mild enlargem ent. There is no evidence for intracranial hemorrhage or sulcal effacement. There is decreased attenuation about the periventricular white matter and deep white matter of both c erebral hemispheres, compatible with chronic small vessel ischemia. Differential diagnosis does inclu de demyelination. No mass effects are seen.No midline shift. Osseous calvarium is intact. If symptoms persist consider MRI. IMPRESSION: 1. Age related atrophic and chronic small vessel ischemic change without acute intracranial process s een at this time.
[2022-04-09] MEDS: CHOLECALCIFEROL 25 MCG (1000 IU) TABLET PO SCH (10:32)
[2022-04-09] MEDS: lisinopriL 5 MG TAB PO SCH (10:32)
--- NOTE | 2022-04-09 10:59 | CT ---
EXAMINATION TYPE: CODE STROKE: CTA head neck DATE OF EXAM: 04/09/2022 COMPARISON: None HISTORY: Neuro symptoms, possible stroke CT DLP: 476.7 mGycm CONTRAST: Performed with IV Contrast, patient injected with 65 mL of Isovue 370. Combination Contrast CTA cervical carotids and [place] CTA cervical carotids with 3-D recons truction Contrast CTA of the cervical carotids was performed 3-D reconstruction imaging obtained at a separate workstation. Right carotid system: Mild plaque is seen of the right common carotid artery. There is mild plaque a lso noted at the carotid bulb and proximal ICA. No significant diameter reduction. ECA is patent. Right vertebral artery appears unremarkable. Left carotid system: There is occlusion of the left common carotid artery as well as the internal car otid artery. Estimated diameter reduction of 50%. ECA is patent. Left vertebral artery appears unrem arkable. IMPRESSION: 1. Occlusion of the left common carotid artery left internal carotid artery. CTA [facility] [place] wit h 3-D reconstruction Contrast CTA of the [facility] [place] was performed 3-D reconstruction imaging obtained at a separate workstation. Vertebrobasilar system their major tributaries are patent. Again noted is occlusion left ICA. Right ICA is patent. There is opacification of the bilateral middle cerebral arteries and anterior cerebral arteries as well as the posterior circulation. I do not see evidence for sizable aneurysm or vascula r malformation. Please note MRI provides greater sensitivity and specificity. Visualized brain appe ars grossly unremarkable. IMPRESSION: 1. Left ICA occlusion. NASCET criteria was used in interpretation of this exam?
[2022-04-09 11:30] LABS: Glucose,Whole Blood 123 mg/dL (70-110)
[2022-04-09 12:49] VITALS: BMI 23.3
--- NOTE | 2022-04-09 13:41 | P.CNNES ---
History of Present Illness Consult date: 04/09/22 Requesting physician: Michael Lopez Reason for Consult: rule out cva History of Present Illness: This is a 76-year-old gentleman with medical history of left ICA occlusion, peripheral vascular disease, type 2 diabetes, hypertension hyperlipidemia who presented to the hospital initially as an outpatient for chest pain. Neurology is consulted for speech difficulty. The patient is accompanied by his was at bedside. Some of the history is obtained from the patient's nurse. It seems the patient went for cardiac cath today and after coming from cardiac cath around 9:40 AM today he was having difficulty getting his words out. And the words and he was saying did not make sense. Patient stated that he knew what he wanted to say but he could not get them out. Since the episode lasted the for a few minutes then resolved and came back again and again lasted for few minutes. He denies of any focal weakness, numbness, difficulty swallowing. He feels he is back to baseline and his feels he is back to baseline. Patient denies of any headache. It seems to the patient yesterday hemoglobin was 7.4 and today was 5.6 and currently he is getting up blood transfusion. His glucose was 117. Patient stated that he has not been getting aspirin yesterday which is a home medication. Because of the his neurological deficit in the morning stroke code was activated by the nurse. According to the nurse his initial NIH stroke scale was between 8-9 and mostly was language deficit. He received 3 points for language 2 points for dysarthria and 2 points for loss of consciousness for the level as well as a question. Currently NIH stroke scale is 0. CT of the head was done and was reported as age related atrophic and chronic small vessel ischemic change without acute intracranial process seen at this time. CT angiography of the head and neck is reported as left ICA occlusion Per the nurse stroke attending (Dr. Guaman) stated no IV TPA since patient has resolution of his symptoms. And the risk outweighed the benefit as well as the patient had a recent procedure. Of note patient stated that he has known history of left ICA occlusion for the past 3 years and is known to Dr. Jack who gets ultrasounds surveillance on the patient. He also has peripheral vascular disease/peripheral arterial disease and he has a stent in the left lower extremity. Patient has a known right lower extremity numbness and he has edema in lower extremity and Dr. Lawrence is observing him for his peripheral vascular disease according to the patient. Some of the other workup during this hospital visit consisted of Cardiac cath is reported as critical disease involving the mid right coronary artery. Severe disease involving the proximal left circumflex. PTCA ballooning of the right coronary artery. And recommends single antiplatelet aspirin alone. The echo was reported as normal by ventricle diamonds and systolic function. Moderate aortic stenosis. Mild mitral regurgitation. Review of Systems Review of system: The 12 point system was reviewed and apparent positive and n egative per HPI. Past Medical History Past Medical History: Coronary Artery Disease (CAD), Diabetes Mellitus, GI Bleed, Hyperlipidemia, Hypertension Additional Past Medical History / Comment(s): rectal bleeding/diverticulitis; poor circ. slight blockage carotid arteries. History of Any Multi-Drug Resistant Organisms: None Reported Additional Past Surgical History / Comment(s): hemorrhoidectomy, colonoscopy. Past Anesthesia/Blood Transfusion Reactions: No Reported Reaction Past Psychological History: No Psychological Hx Reported Smoking Status: Former smoker Past Alcohol Use History: Occasional Additional Past Alcohol Use History / Comment(s): Smoked for 50 years, quit 8 years ago. Past Drug Use History: None Reported - Past Family History Father Family Medical History: Cancer Mother Family Medical History: Cancer Medications and Allergies Home Medications Medication Instructions Recorded Confirmed Type Aspirin EC [Ecotrin] 325 mg PO DAILY 06/27/17 04/08/22 History Atorvastatin [Lipitor] 40 mg PO HS 08/12/20 04/08/22 History Pioglitazone [Actos] 30 mg PO DAILY 08/12/20 04/08/22 History lisinopriL [Zestril] 5 mg PO DAILY 08/12/20 04/08/22 History Cholecalciferol [Vitamin D3 (25 50 mcg PO DAILY 04/08/22 04/08/22 History Mcg = 1000 Iu)] Ferrous Sulfate [Feosol] 325 mg PO MOWEFR 04/08/22 04/08/22 History Multivit-Min/FA/Lycopen/Lutein 1 tab PO DAILY 04/08/22 04/08/22 History [Centrum Silver Men Tablet] Nitroglycerin Sl Tabs [Nitrostat] 0.4 mg SUBLINGUAL Q5M PRN 04/08/22 04/08/22 History Allergies Allergy/AdvReac Type Severity Reaction Status Date / Time No Known Allergies Allergy Verified 04/08/22 16:37 Physical Examination - Vital Signs Vital Signs: Vital Signs Temp Pulse Pulse Pulse Resp BP BP 04/09/22 11:57 63 17 130/67 04/09/22 11:13 60 17 138/62 04/09/22 10:57 61 18 133/60 04/09/22 10:53 97.4 F L 58 L 17 125/66 04/09/22 10:44 97.3 F L 60 17 117/66 04/09/22 10:27 61 16 117/66 04/09/22 09:42 61 17 114/65 04/09/22 09:27 98 F 63 17 126/67 04/09/22 06:45 97.8 F 66 18 125/60 04/09/22 02:06 69 16 04/09/22 00:41 98.0 F 82 19 145/65 04/08/22 20:21 69 16 04/08/22 19:03 97.7 F 69 16 111/56 04/08/22 15:00 97.4 F L 63 16 04/08/22 13:30 18 BP Pulse Ox 04/09/22 11:57 100 04/09/22 11:13 99 04/09/22 10:57 99 04/09/22 10:53 100 04/09/22 10:44 100 04/09/22 10:27 100 04/09/22 09:42 100 04/09/22 09:27 98 04/09/22 06:45 95 04/09/22 02:06 04/09/22 00:41 97 04/08/22 20:21 04/08/22 19:03 100 04/08/22 15:00 117/49 98 04/08/22 13:30 Intake and Output 04/08/22 04/09/22 04/09/22 22:59 06:59 14:59 Intake Total 310 Output Total 1 Balance -1 310 Intake: IV 310 Blood Product 0 Unit 0 Output: Urine 1 Other: # Voids 1 Weight 82.554 kg GENERAL: The patient is lying in bed and is not in acute distress. CHEST: The heart rate is regular rate rhythm. No murmurs to auscultation. LUNG: Clear to auscultation bilaterally no wheezing noted throughout. Not labored breathing. ABDOMEN/GI: Bowel sounds present in all 4 quadrants. No tenderness to palpation throughout. NEUROLOGICAL: Higher mental function: The patient is awake, alert, oriented to self, place and time. Patient is following commands. No aphasia and no neglect. Cranial nerves: The pupils are round, equal and reactive to light and accommodation. Visual [place] are full to confrontation throughout. Extraocular movement is intact no nystagmus is noted. Facial sensation is normal to touch throughout. The facial strength is normal throughout. Hearing is normal bilaterally to hand rub. Tongue is midline and moved [id number] without any difficulty. No dysarthria is noted. Shoulder shrug is normal bilaterally. Motor: The strength is 5 over 5 throughout. Normal tone and bulk. Cerebellum: Normal finger to nose bilaterally. Sensation: Sensation is normal to touch throughout. Reflexes (right/left): 1+ throughout. Plantars are mute bilaterally. Results - Laboratory Findings CBC and BMP: 04/09/22 08:10 04/08/22 12:54 Abnormal Lab Findings: Abnormal Labs 04/08/22 04/08/22 04/09/22 12:54 12:54 08:10 RBC 2.75 L 1.95 L Hgb 7.4 L 5.6 L* D Hct 26.2 L 17.3 L* MCHC 28.1 L RDW 16.7 H 16.3 H Chloride 109 H BUN 29 H Glucose 117 H POC Glucose (mg/dL) Crossmatch 04/09/22 04/09/22 04/09/22 08:57 09:32 09:44 RBC Hgb Hct MCHC RDW Chloride BUN Glucose POC Glucose (mg/dL) 136 H 147 H Crossmatch See Detail 04/09/22 11:28 RBC Hgb Hct MCHC RDW Chloride BUN Glucose POC Glucose (mg/dL) 123 H Crossmatch Assessment and Plan Assessment: Likely Transient ischemic attack (today in the morning had expressive aphasia) Coronary artery disease status post PTCA of right coronary artery on 04/09/2022 Known history of left ICA occlusion for the past 3 years Acute Anemia Peripheral vascular disease Diabetes mellitus Hyperlipidemia Plan: Recommended to resume his aspirin 325 daily once his anemia results. Avoid dual antiplatelets because of increased risk of a bleed and his current hemoglobin is 5.6. 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 Every 4 hours neuro checks On cardiac monitoring Consulted PT OT and CORE BAKER We'll defer the rest of the medical management to the primary team For DVT prophylaxis use SCD and the will avoid subcu heparin or Lovenox because of his acute anemia but once is a resolve recommend subcu heparin 5000 units every 12 hours The plan was discussed with the patient and his as well as his nurse were a t bedside Thank you for the consultation Time with Patient: Greater than 30
[2022-04-09 16:40] LABS: Glucose,Whole Blood 150 mg/dL (70-110)
[2022-04-09] MEDS ORDERED: FERROUS SULFATE 325 MG TAB PO SCH (17:42)
[2022-04-09 17:57] LABS: Anisocytosis Slight; Basophils % (A) 1 %; Eosinophils % (A) 1 %; HCT 27.3 % (39.0-53.0); Hypochromasia Marked; Lymphocytes # (A) 1.3 k/uL (1.0-4.8); Lymphocytes % (A) 21 %; MCHC 30.5 g/dL (31.0-37.0); MCV 88.5 fL (80.0-100.0); Mean Platelet Volume 8.1; Monocytes # (A) 0.3 k/uL (0-1.0); Monocytes % (A) 5 %; Neutrophils # (A) 4.4 k/uL (1.3-7.7); Neutrophils % (A) 70 %; Platelet Count 268 k/uL (150-450); RBC 3.08 m/uL (4.30-5.90); RDW 16.4 % (11.5-15.5); WBC 6.2 k/uL (3.8-10.6)
[2022-04-09 17:58] LABS: HGB 8.3 gm/dL (13.0-17.5)
[2022-04-09] MEDS: RANOLAZINE 500 MG TAB.ER.12H PO SCH (19:46)
[2022-04-09 19:59] LABS: Glucose,Whole Blood 121 mg/dL (70-110)
[2022-04-09 22:39] LABS: Chol/HDL Ratio 2.76 Ratio; LDL Cholesterol,Calculated 48.3 mg/dL (0.0-131.0)
[2022-04-10 05:59] LABS: Glucose,Whole Blood 123 mg/dL (70-110)
[2022-04-10] MEDS: lisinopriL 5 MG TAB PO SCH (08:15)
[2022-04-10] MEDS: METOPROLOL SUCCINATE (ER) 25 MG TAB.ER.24H PO SCH (08:15)
[2022-04-10] MEDS: ATORVASTATIN 40 MG TAB PO SCH (08:15)
[2022-04-10] MEDS: ISOSORBIDE MONONITRATE ER 30 MG TAB.ER.24H PO SCH (08:15)
[2022-04-10] MEDS: ASPIRIN 325 MG TAB PO SCH (08:15)
[2022-04-10] MEDS: RANOLAZINE 500 MG TAB.ER.12H PO SCH ×2 (08:15→20:03)
[2022-04-10] MEDS: CHOLECALCIFEROL 25 MCG (1000 IU) TABLET PO SCH (08:16)
[2022-04-10 09:55] LABS: Anisocytosis Slight; HCT 24.7 % (39.0-53.0); HGB 7.4 gm/dL (13.0-17.5); Hypochromasia Marked; MCH 27.2 pg (25.0-35.0); MCHC 30.1 g/dL (31.0-37.0); MCV 90.5 fL (80.0-100.0); Mean Platelet Volume 7.9; Platelet Count 280 k/uL (150-450); Poikilocytosis Slight; RBC 2.73 m/uL (4.30-5.90); RDW 16.6 % (11.5-15.5); WBC 5.7 k/uL (3.8-10.6)
[2022-04-10 10:27] LABS: Calcium 7.9 mg/dL (8.4-10.2); Potassium 4.1 mmol/L (3.5-5.1)
--- NOTE | 2022-04-10 11:03 | P.PN ---
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 He has past medical history significant for peripheral vascular disease, known carotid occlusion follows with Dr. Lawrence, Dm type 2, hypertension, hyperlipidemia. Patient presented to the hospital for an outpatient Lexiscan stress test. Patient states he has been having chest pain for the past 1-2 weeks with exertion. He also sometimes gets some shortness of breath. Due to patient's symptoms, stress test was canceled and Dr. Lopez was contacted. Patient was admitted to the hospital and underwent cardiac catheterization which revealed critical disease involving mid RCA, severe disease involving proximal LCx; patient underwent successful PTCA ballooning of the RCA While inpatient patient's hemoglobin was found to be 7.4; patient did receive 1 unit of packed RBCs with current hemoglobin of 8.30 - Patient denies any hematemesis, hemoptysis or melena or dark stools; does have history of hemorrhoids for which she underwent surgery in the past Objective - Vital Signs Vital signs: Vital Signs Temp 97.7 F 04/10/22 08:00 Pulse 86 04/10/22 08:00 Resp 17 04/10/22 08:00 BP 124/57 04/10/22 08:15 Pulse Ox 99 04/10/22 08:36 FiO2 Intake & Output 04/09/22 04/10/22 04/10/22 18:59 06:59 18:59 Intake Total 800 1970 118 Balance 800 1970 118 Weight 82.554 kg Intake: IV 310 Intake, IV Titration 1000 Amount Sodium Chloride 0.9% 1, 1000 000 ml In Empty Bag 1 bag @ 75 mls/hr IV .[id number] [facility] Rx#:[id number] Oral 180 970 118 Blood Product 310 Rc As-1 Unit 310 [id number] Other: Voiding Method Toilet Toilet # Voids 1 1 - Exam Gen: This is a 76-year-old male. He is resting on the stretcher and appears to be comfortable. VS: reviewed HEENT: Head is atraumatic, normocephalic. Pupils equal, round. Sclerae is anicteric. NECK: Supple. No JVD. LUNGS: Clear to auscultation. No wheezes or rhonchi. No intercostal retractions. HEART: Regular rate and rhythm. 2/6 systolic murmur right sternal border. ABDOMEN: Soft. No masses. No tenderness. EXTREMITIES: No pedal edema. No calf tenderness. NEUROLOGICAL: Patient is awake, alert and oriented x3. - Labs CBC & Chem 7: 04/10/22 09:42 04/10/22 09:42 Labs: Abnormal Lab Results - Last 24 Hours (Table) 04/09/22 04/09/22 04/09/22 Range/Units 08:57 11:28 16:38 RBC (4.30-5.90) m/uL Hgb (13.0-17.5) gm/dL Hct (39.0-53.0) % MCHC (31.0-37.0) g/dL RDW (11.5-15.5) % Chloride (98-107) mmol/L BUN (9-20) mg/dL Glucose (74-99) mg/dL POC Glucose (mg/dL) 123 H 150 H (70-110) mg/dL Calcium (8.4-10.2) mg/dL HDL Cholesterol (40.00-60.00) mg/dL Crossmatch See Detail 04/09/22 04/09/22 04/09/22 Range/Units 17:37 17:37 19:58 RBC 3.08 L (4.30-5.90) m/uL Hgb 8.3 L D (13.0-17.5) gm/dL Hct 27.3 L (39.0-53.0) % MCHC 30.5 L (31.0-37.0) g/dL RDW 16.4 H (11.5-15.5) % Chloride (98-107) mmol/L BUN (9-20) mg/dL Glucose (74-99) mg/dL POC Glucose (mg/dL) 121 H (70-110) mg/dL Calcium (8.4-10.2) mg/dL HDL Cholesterol 35.50 L (40.00-60.00) mg/dL Crossmatch 04/10/22 04/10/22 04/10/22 Range/Units 05:57 09:42 09:42 RBC 2.73 L (4.30-5.90) m/uL Hgb 7.4 L (13.0-17.5) gm/dL Hct 24.7 L (39.0-53.0) % MCHC 30.1 L (31.0-37.0) g/dL RDW 16.6 H (11.5-15.5) % Chloride 108 H (98-107) mmol/L BUN 27 H (9-20) mg/dL Glucose 213 H (74-99) mg/dL POC Glucose (mg/dL) 123 H (70-110) mg/dL Calcium 7.9 L (8.4-10.2) mg/dL HDL Cholesterol (40.00-60.00) mg/dL Crossmatch Assessment and Plan Assessment: 1. Unstable angina/acute CAD - Patient is status post cardiac catheterization which revealed critical disease involving mid RCA and severe disease involving proximal LCx; patient is status post PTCA ballooning of RCA - Cardiology recommending single antiplatelet therapy with aspirin and intermediate intensity statin therapy - Patient will continue with beta blockers and oral nitrates along with Ranexa 2. TIA versus CVA; patient's symptoms has resolved; patient was evaluated by telemetry stroke and TPA was not recommended due to resolution of symptoms and acute anemia; neurology is following and recommending to resume aspirin 325 mg daily and avoid dual antiplatelet therapy because of increased risk of bleeding given patient's hemoglobin was at 7.4 upon admission dropping down to 5.6 in 24 hours - Patient is recommended to continue Lipitor 40 mg daily for secondary stroke prophylaxis - MRI is not recommended at this time since it will not warp changer; patient will have an MRI if continues to have repeated episodes of neuro deficit; continue with neuro checks every 4 hours - PT/OT and MEDICAL ADVISOR is consulted - DVT prophylaxis with heparin or Lovenox is recommended once hemoglobin stabilizes 3. Acute on chronic anemia; hemoglobin was 7.4 upon admission dropping down to 5.6 within 24 hours; patient received transfusion with 1 unit of packed RBCs resulting in improved hemoglobin of 8.3; hemoglobin has dropped down to 7.4 again this morning - Patient reports colonoscopy that was done 'long time ago' and is not certain about the findings - We will monitor hemoglobin every 8 hours; patient has been placed on Protonix 40 mg IV every 12 hours; stool occult blood on stool samples; order iron studies and make recommendations accordingly - We will consult general surgery for possible EGD/colonoscopy 4. Peripheral vascular disease; continue with aspirin and statin therapy 5. Hyperlipidemia; Lipitor 40 mg daily 6. Diabetes mellitus 2; patient takes Actos 30 mg at home; we will monitor Accu-Cheks before meals and at bedtime with insulin sliding scale 7. Hypertension; continue with Imdur, lisinopril 5 mg daily, metoprolol 25 mg daily DVT prophylaxis; SCDs only given severe anemia CODE STATUS; full code
--- NOTE | 2022-04-10 11:21 | P.PN ---
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 He has past me dical history significant for peripheral vascular disease, known carotid occlusion follows with Dr. Lawrence, Dm type 2, hypertension, hyperlipidemia. Patient presented to the hospital for an outpatient Lexiscan stress test. Patient states he has been having chest pain for the past 1-2 weeks with e xertion. He also sometimes gets some shortness of breath. Due to patient's symptoms, stress test was canceled and Dr. Lopez was contacted. Patient is then scheduled for cardiac catheterization for tomorrow. 04/10 Patient underwent a cardiac catheterization on 1222 finding critical disease involving the mid right coronary artery, severe disease in the proximal left circumflex, PTCA bloating was done of the right coronary artery. No stenting was done due to the fact that hemoglobin came back at 5.6, hemoglobin was 7.4 the evening before. Transfusion of 2 units packed RBCs was ordered. Plan is for single antiplatelet with aspirin alone for now, intermediate intensity statin, beta rishi and oral nitrate and Ranexa. Patient states that he did have some vague chest pain across the upper chest area when he ambulated with physical therapy. Patient had episode of expressive aphasia has been worked up for TIA with neurology consult. Patient gives history of having anemia in the past was scheduled for transfusion but it was canceled because his hemoglobin was at 8. He has dark stools since he started taking iron but does not think he has tarry stools from blood and no bright red bleeding. He denies any other source of bleeding. Echocardiogram reveals normal biventricular dimension and systolic function. Moderate aortic stenosis with mean gradient of 20 mmHg. Mild mitral r egurgitation Physical examination: Gen: This is a 76-year-old male. He is resting in bed and appears to be comfortable. VS: reviewed HEENT: Head is atraumatic, normocephalic. Pupils equal, round. Sclerae is anicteric. NECK: Supple. No JVD. LUNGS: Clear to auscultation. No wheezes or rhonchi. No intercostal retractions. HEART: Regular rate and rhythm. 2/6 systolic murmur right sternal border. No chest wall tenderness ABDOMEN: Soft. No masses. No tenderness. EXTREMITIES: No pedal edema. No calf tenderness. NEUROLOGICAL: Patient is awake, alert and oriented x3. Assessment: Exertional chest pain, secondary to critical disease in the mid RCA, severe disease in the proximal left circumflex status post PTCA ballooning of the right coronary artery Severe anemia requiring transfusion of 2 units packed RBCs Hypertension Hyperlipidemia Carotid artery stenosis Diabetes mellitus type 2 Peripheral vascular disease Plan: Recommend continuing patient on aspirin 325 mg daily, Lipitor 40 mg daily, Imdur 30 mg daily, lisinopril 5 mg daily, Toprol-XL 25 mg daily, Ranexa 500 mg every 12 hours Recommend anemia workup Further recommendations to follow based upon clinical course Thank you kindly for this consultation. Nurse practitioner note has been reviewed, I agree with documented findings and plan of care. Patient was seen and examined. Objective - Vital Signs Vital signs: Vital Signs Temp 97.7 F 04/10/22 08:00 Pulse 86 04/10/22 08:00 Resp 17 04/10/22 08:00 BP 124/57 04/10/22 08:15 Pulse Ox 99 04/10/22 08:36 FiO2 Intake & Output 04/09/22 04/10/22 04/10/22 18:59 06:59 18:59 Intake Total 800 1970 118 Balance 800 1970 118 Weight 82.554 kg Intake: IV 310 Intake, IV Titration 1000 Amount Sodium Chloride 0.9% 1, 1000 000 ml In Empty Bag 1 bag @ 75 mls/hr IV .[id number] [facility] Rx#:[id number] Oral 180 970 118 Blood Product 310 Rc As-1 Unit 310 [id number] Other: Voiding Method Toilet Toilet # Voids 1 1 - Labs CBC & Chem 7: 04/10/22 09:42 04/10/22 09:42 Labs: Abnormal Lab Results - Last 24 Hours (Table) 04/09/22 04/09/22 04/09/22 Range/Units 08:57 09:32 09:44 RBC (4.30-5.90) m/uL Hgb (13.0-17.5) gm/dL Hct (39.0-53.0) % MCHC (31.0-37.0) g/dL RDW (11.5-15.5) % POC Glucose (mg/dL) 136 H 147 H (70-110) mg/dL HDL Cholesterol (40.00-60.00) mg/dL Crossmatch See Detail 04/09/22 04/09/22 04/09/22 Range/Units 11:28 16:38 17:37 RBC (4.30-5.90) m/uL Hgb (13.0-17.5) gm/dL Hct (39.0-53.0) % MCHC (31.0-37.0) g/dL RDW (11.5-15.5) % POC Glucose (mg/dL) 123 H 150 H (70-110) mg/dL HDL Cholesterol 35.50 L (40.00-60.00) mg/dL Crossmatch 04/09/22 04/09/22 04/10/22 Range/Units 17:37 19:58 05:57 RBC 3.08 L (4.30-5.90) m/uL Hgb 8.3 L D (13.0-17.5) gm/dL Hct 27.3 L (39.0-53.0) % MCHC 30.5 L (31.0-37.0) g/dL RDW 16.4 H (11.5-15.5) % POC Glucose (mg/dL) 121 H 123 H (70-110) mg/dL HDL Cholesterol (40.00-60.00) mg/dL Crossmatch
[2022-04-10 11:57] LABS: Glucose,Whole Blood 109 mg/dL (70-110)
--- NOTE | 2022-04-10 12:12 | P.GSCN ---
History of Present Illness Consult date: 04/10/22 Reason for Consult: Anemia History of present illness: This a 68-year-old male who underwent recent cardiac workup. Patient underwent PTCA and cardiac cath.. Patient was found to be anemic with hemoglobin 7 range. Patient denies any significant GI bleed. He denies any melanotic stools. I asked to perform a colonoscopy on him in July 2020. At times had significant diverticular disease. Past Medical History Past Medical History: Coronary Artery Disease (CAD), Diabetes Mellitus, GI Bleed, Hyperlipidemia, Hypertension Additional Past Medical History / Comment(s): rectal bleeding/diverticulitis; poor circ. slight blockage carotid arteries. History of Any Multi-Drug Resistant Organisms: None Reported Additional Past Surgical History / Comment(s): hemorrhoidectomy, colonoscopy. Past Anesthesia/Blood Transfusion Reactions: No Reported Reaction Past Psychological History: No Psychological Hx Reported Smoking Status: Former smoker Past Alcohol Use History: Occasional Additional Past Alcohol Use History / Comment(s): Smoked for 50 years, quit 8 years ago. Past Drug Use History: None Reported - Past Family History Father Family Medical History: Cancer Mother Family Medical History: Cancer Medications and Allergies Home Medications Medication Instructions Recorded Confirmed Type Aspirin EC [Ecotrin] 325 mg PO DAILY 06/27/17 04/08/22 History Atorvastatin [Lipitor] 40 mg PO HS 08/12/20 04/08/22 History Pioglitazone [Actos] 30 mg PO DAILY 08/12/20 04/08/22 History lisinopriL [Zestril] 5 mg PO DAILY 08/12/20 04/08/22 History Cholecalciferol [Vitamin D3 (25 50 mcg PO DAILY 04/08/22 04/08/22 History Mcg = 1000 Iu)] Ferrous Sulfate [Feosol] 325 mg PO MOWEFR 04/08/22 04/08/22 History Multivit-Min/FA/Lycopen/Lutein 1 tab PO DAILY 04/08/22 04/08/22 History [Centrum Silver Men Tablet] Nitroglycerin Sl Tabs [Nitrostat] 0.4 mg SUBLINGUAL Q5M PRN 04/08/22 04/08/22 History Allergies Allergy/AdvReac Type Severity Reaction Status Date / Time No Known Allergies Allergy Verified 04/08/22 16:37 Surgical - Exam Vital Signs Resp 18 04/08/22 13:30 - General well developed, well nourished, no distress - Eyes PERRL - ENT normal pinna - Neck no masses - Respiratory normal expansion - Cardiovascular Rhythm: regular - Abdomen Abdomen: soft, non tender Results - Labs 04/10/22 09:42 04/10/22 09:42 Abnormal Lab Results - Last 24 Hours (Table) 04/09/22 04/09/22 04/09/22 Range/Units 08:57 16:38 17:37 RBC (4.30-5.90) m/uL Hgb (13.0-17.5) gm/dL Hct (39.0-53.0) % MCHC (31.0-37.0) g/dL RDW (11.5-15.5) % Chloride (98-107) mmol/L BUN (9-20) mg/dL Glucose (74-99) mg/dL POC Glucose (mg/dL) 150 H (70-110) mg/dL Calcium (8.4-10.2) mg/dL HDL Cholesterol 35.50 L (40.00-60.00) mg/dL Crossmatch See Detail 04/09/22 04/09/22 04/10/22 Range/Units 17:37 19:58 05:57 RBC 3.08 L (4.30-5.90) m/uL Hgb 8.3 L D (13.0-17.5) gm/dL Hct 27.3 L (39.0-53.0) % MCHC 30.5 L (31.0-37.0) g/dL RDW 16.4 H (11.5-15.5) % Chloride (98-107) mmol/L BUN (9-20) mg/dL Glucose (74-99) mg/dL POC Glucose (mg/dL) 121 H 123 H (70-110) mg/dL Calcium (8.4-10.2) mg/dL HDL Cholesterol (40.00-60.00) mg/dL Crossmatch 04/10/22 04/10/22 Range/Units 09:42 09:42 RBC 2.73 L (4.30-5.90) m/uL Hgb 7.4 L (13.0-17.5) gm/dL Hct 24.7 L (39.0-53.0) % MCHC 30.1 L (31.0-37.0) g/dL RDW 16.6 H (11.5-15.5) % Chloride 108 H (98-107) mmol/L BUN 27 H (9-20) mg/dL Glucose 213 H (74-99) mg/dL POC Glucose (mg/dL) (70-110) mg/dL Calcium 7.9 L (8.4-10.2) mg/dL HDL Cholesterol (40.00-60.00) mg/dL Crossmatch Diabetes panel 04/09/22 04/10/22 Range/Units 17:37 09:42 Sodium 138 (137-145) mmol/L Potassium 4.1 (3.5-5.1) mmol/L Chloride 108 H (98-107) mmol/L Carbon Dioxide 25 (22-30) mmol/L BUN 27 H (9-20) mg/dL Creatinine 1.10 (0.66-1.25) mg/dL Glucose 213 H (74-99) mg/dL Calcium 7.9 L (8.4-10.2) mg/dL Triglycerides 71.00 (0.00-149.00) mg/dL HDL Cholesterol 35.50 L (40.00-60.00) mg/dL Calcium panel 04/10/22 Range/Units 09:42 Calcium 7.9 L (8.4-10.2) mg/dL Pituitary panel 04/10/22 Range/Units 09:42 Sodium 138 (137-145) mmol/L Potassium 4.1 (3.5-5.1) mmol/L Chloride 108 H (98-107) mmol/L Carbon Dioxide 25 (22-30) mmol/L BUN 27 H (9-20) mg/dL Creatinine 1.10 (0.66-1.25) mg/dL Glucose 213 H (74-99) mg/dL Calcium 7.9 L (8.4-10.2) mg/dL Adrenal panel 04/10/22 Range/Units 09:42 Sodium 138 (137-145) mmol/L Potassium 4.1 (3.5-5.1) mmol/L Chloride 108 H (98-107) mmol/L Carbon Dioxide 25 (22-30) mmol/L BUN 27 H (9-20) mg/dL Creatinine 1.10 (0.66-1.25) mg/dL Glucose 213 H (74-99) mg/dL Calcium 7.9 L (8.4-10.2) mg/dL Assessment and Plan Assessment: Anemia. Patient has a significant history of diverticular disease. He may have some bleeding related to diverticular disease. Patient will undergo outpatient upper and lower endoscopy when medically stable.
--- NOTE | 2022-04-10 12:52 | P.PN ---
Subjective Progress Note Date: 04/10/22 The patient is seen at bedside and stated no further speech/language difficulty. He feels he is back to baseline from neurological perspective. Objective - Vital Signs Vital signs: Vital Signs Temp 97.7 F 04/10/22 08:00 Pulse 64 04/10/22 11:25 Resp 18 04/10/22 11:25 BP 116/58 04/10/22 11:25 Pulse Ox 98 04/10/22 11:25 FiO2 Intake & Output 04/09/22 04/10/22 04/10/22 18:59 06:59 18:59 Intake Total 800 1969 118 Balance 800 1969 118 Weight 82.554 kg Intake: IV 310 Intake, IV Titration 1000 Amount Sodium Chloride 0.9% 1, 1000 000 ml In Empty Bag 1 bag @ 75 mls/hr IV .[id number] [facility] Rx#:[id number] Oral 180 970 118 Blood Product 310 Rc As-1 Unit 310 [id number] Other: Voiding Method Toilet Toilet # Voids 1 1 - Exam GENERAL: The patient is lying in bed and is not in acute distress. NEUROLOGICAL: Higher mental function: The patient is awake, alert, oriented to self, place and time. Patient is following commands. No aphasia and no neglect. Cranial nerves: The pupils are round, equal and reactive to light and accommodation. Visual villa are full to confrontation throughout. Extraocular movement is intact no nystagmus is noted. Facial sensation is normal to touch throughout. The facial strength is normal throughout. Hearing is normal bilaterally to hand rub. Tongue is midline and moved [id number] without any difficulty. No dysarthria is noted. Shoulder shrug is normal bilaterally. Motor: The strength is 5 over 5 throughout. Normal tone and bulk. Cerebellum: Normal finger to nose bilaterally. Sensation: Sensation is normal to touch throughout. Reflexes (right/left): 1+ throughout. Plantars are mute bilaterally. SOME OF THE WORK-UP DURING THIS HOSPITAL VISIT CONSISTED OF: Lipid panel is triglycerides 71, cholesterol 98, LDL is 48 and HDL is 35. CT of the head was done and was reported as age related atrophic and chronic small vessel ischemic change without acute intracranial process seen at this time. CT angiography of the head and neck is reported as left ICA occlusion Cardiac cath is reported as critical disease involving the mid right coronary artery. Severe disease involving the proximal left circumflex. PTCA ballooning of the right coronary artery. And recommends single antiplatelet aspirin alone. 2D echo was reported as normal by ventricle diamonds and systolic function. Moderate aortic stenosis. Mild mitral regurgitation. - Labs CBC & Chem 7: 04/10/22 09:42 04/10/22 09:42 Labs: Abnormal Lab Results - Last 24 Hours (Table) 04/09/22 04/09/22 04/09/22 Range/Units 08:57 16:38 17:37 RBC (4.30-5.90) m/uL Hgb (13.0-17.5) gm/dL Hct (39.0-53.0) % MCHC (31.0-37.0) g/dL RDW (11.5-15.5) % Chloride (98-107) mmol/L BUN (9-20) mg/dL Glucose (74-99) mg/dL POC Glucose (mg/dL) 150 H (70-110) mg/dL Calcium (8.4-10.2) mg/dL HDL Cholesterol 35.50 L (40.00-60.00) mg/dL Crossmatch See Detail 04/09/22 04/09/22 04/10/22 Range/Units 17:37 19:58 05:57 RBC 3.08 L (4.30-5.90) m/uL Hgb 8.3 L D (13.0-17.5) gm/dL Hct 27.3 L (39.0-53.0) % MCHC 30.5 L (31.0-37.0) g/dL RDW 16.4 H (11.5-15.5) % Chloride (98-107) mmol/L BUN (9-20) mg/dL Glucose (74-99) mg/dL POC Glucose (mg/dL) 121 H 123 H (70-110) mg/dL Calcium (8.4-10.2) mg/dL HDL Cholesterol (40.00-60.00) mg/dL Crossmatch 04/10/22 04/10/22 Range/Units 09:42 09:42 RBC 2.73 L (4.30-5.90) m/uL Hgb 7.4 L (13.0-17.5) gm/dL Hct 24.7 L (39.0-53.0) % MCHC 30.1 L (31.0-37.0) g/dL RDW 16.6 H (11.5-15.5) % Chloride 108 H (98-107) mmol/L BUN 27 H (9-20) mg/dL Glucose 213 H (74-99) mg/dL POC Glucose (mg/dL) (70-110) mg/dL Calcium 7.9 L (8.4-10.2) mg/dL HDL Cholesterol (40.00-60.00) mg/dL Crossmatch Assessment and Plan Assessment: Likely Transient ischemic attack (today in the morning had expressive aphasia) Coronary artery disease status post PTCA of right coronary artery on 04/09/2022 Known history of left ICA occlusion for the past 3 years Acute Anemia Peripheral vascular disease Diabetes mellitus Hyperlipidemia Plan: Recommended to resume his aspirin 325 daily once his anemia results. Avoid dual antiplatelets because of increased risk of a bleed and has anemia concerning for GI bleeding. Continue Lipitor 40 mg daily for secondary stroke prophylaxis There is no need for MRI since it will not change management expert but if the patient continues to have repeated episode of aphasia or any neurological deficit been recommended to pursue with MRI of the brain. Every 4 hours neuro checks On cardiac monitoring Consulted PT OT and MOLD INSERT CHANGER We'll defer the rest of the medical management to the primary team For DVT prophylaxis use SCD and the will avoid subcu heparin or Lovenox because of his acute anemia but once is a resolve recommend subcu heparin 5000 units every 12 hours The plan was discussed with the patient. There is no further neurological work-up. Will sign off. Please notify neurology team if any further concerns. Time with Patient: Less than 30
[2022-04-10 16:30] LABS: Glucose,Whole Blood 125 mg/dL (70-110)
[2022-04-10] MEDS: PANTOPRAZOLE 40 MG/10 ML VIAL IVP SCH (20:03)
[2022-04-10 20:38] LABS: Glucose,Whole Blood 152 mg/dL (70-110)
[2022-04-10 23:03] VITALS: RESP 18
[2022-04-11 06:06] LABS: Calcium 8.1 mg/dL (8.4-10.2); Potassium 4.1 mmol/L (3.5-5.1)
[2022-04-11 06:18] LABS: Glucose,Whole Blood 113 mg/dL (70-110)
[2022-04-11 08:59] VITALS: BP 127/55; PULSE 63; TEMP 97.8
[2022-04-11] MEDS: CHOLECALCIFEROL 25 MCG (1000 IU) TABLET PO SCH (09:03)
[2022-04-11] MEDS: PANTOPRAZOLE 40 MG/10 ML VIAL IVP SCH (09:03)
[2022-04-11] MEDS: RANOLAZINE 500 MG TAB.ER.12H PO SCH (09:03)
[2022-04-11] MEDS: ISOSORBIDE MONONITRATE ER 30 MG TAB.ER.24H PO SCH (09:03)
[2022-04-11] MEDS: METOPROLOL SUCCINATE (ER) 25 MG TAB.ER.24H PO SCH (09:03)
[2022-04-11] MEDS: ASPIRIN 325 MG TAB PO SCH (09:03)
[2022-04-11] MEDS: lisinopriL 5 MG TAB PO SCH (09:03)
[2022-04-11] MEDS: ATORVASTATIN 40 MG TAB PO SCH (09:03)
[2022-04-11 11:53] LABS: Glucose,Whole Blood 142 mg/dL (70-110)
--- NOTE | 2022-04-11 11:58 | P.PN ---
Progress Note - Text Progress Note Date: 04/11/22 The patient's resting comfortably. He denies any abdominal pain. He has had no evidence of GI bleed. He is tolerating diet. His last hemoglobin 7.4. There are no labs available for today. On exam vital signs are stable. Abdomen soft. Anemia. Patient will need endoscopic workup. This can be done as an outpatient as the patient appears to be stable. He'll continue receive supportive care.
[2022-04-11 13:03] LABS: Anisocytosis Slight; Basophils % (A) 0 %; Eosinophils # (A) 0.1 k/uL (0-0.7); Eosinophils % (A) 1 %; HCT 28.5 % (39.0-53.0); HGB 8.4 gm/dL (13.0-17.5); Hypochromasia Marked; Lymphocytes # (A) 1.1 k/uL (1.0-4.8); Lymphocytes % (A) 18 %; MCH 27.2 pg (25.0-35.0); MCHC 29.5 g/dL (31.0-37.0); MCV 92.5 fL (80.0-100.0); Mean Platelet Volume 7.6; Monocytes # (A) 0.3 k/uL (0-1.0); Monocytes % (A) 5 %; Neutrophils # (A) 4.2 k/uL (1.3-7.7); Neutrophils % (A) 73 %; Platelet Count 318 k/uL (150-450); RBC 3.08 m/uL (4.30-5.90); RDW 16.2 % (11.5-15.5); WBC 5.8 k/uL (3.8-10.6)
[2022-04-11 13:13] LABS: Calcium 8.3 mg/dL (8.4-10.2); Potassium 4.3 mmol/L (3.5-5.1)
--- NOTE | 2022-04-11 15:05 | P.DS ---
Providers Date of admission: 04/08/22 11:59 Expected date of discharge: 04/11/22 Attending physician: Michael Lopez Consults: 04/08/22 12:38 Consult Physician Routine Consulting Provider: Amador Bedoya Consult Reason/Comments: cp Do you want consulting provider notified?: Already Contacted Placement Type Exists?: Yes 04/09/22 09:12 Consult Physician Routine Consulting Provider: [facility] Consult Reason/Comments: Post Interventional Patient Do you want consulting provider notified?: Already Contacted 04/09/22 11:24 Consult Physician Routine Consulting Provider: Deep Márquez Consult Reason/Comments: r/o CVA Do you want consulting provider notified?: Yes 04/10/22 11:04 Consult Physician Routine Consulting Provider: Jose Francisco Renee Consult Reason/Comments: Severe anemis Do you want consulting provider notified?: Yes Primary care physician: Michael Lopez [facility] Course: 76-year-old male, does not follow with sweetbread trimmer. He has past medical history significant for peripheral vascular disease, known carotid occlusion follows with Dr. Lawrence, Dm type 2, hypertension, hyperlipidemia. Patient presented to the hospital for an outpatient Lexiscan stress test. Patient states he has been having chest pain for the past 1-2 weeks with exertion. He also sometimes gets some shortness of breath. Due to patient's symptoms, stress test was canceled and Dr. Lopez was contacted. Patient was admitted to the hospital and underwent cardiac catheterization which revealed critical disease involving mid RCA, severe disease involving proximal LCx; patient underwent successful PTCA ballooning of the RCA While inpatient patient's hemoglobin was found to be 7.4; patient did receive 1 unit of packed RBCs with current hemoglobin of 8.30 - Patient denies any hematemesis, hemoptysis or melena or dark stools; does have history of hemorrhoids for which she underwent surgery in the past Recommended to resume his aspirin 325 daily once his anemia results. Avoid dual antiplatelets because of increased risk of a bleed and has anemia concerning for GI bleeding. Continue Lipitor 40 mg daily for secondary stroke prophylaxis There is no need for MRI since it will not regional climate change analyst but if the patient continues to have repeated episode of aphasia or any neurological deficit been recommended to pursue with MRI of the brain. 1. Unstable angina/acute CAD - Patient is status post cardiac catheterization which revealed critical disease involving mid RCA and severe disease involving proximal LCx; patient is status post PTCA ballooning of RCA - Cardiology recommending single antiplatelet therapy with aspirin and intermediate intensity statin therapy - Patient will continue with beta blockers and oral nitrates along with Ranexa 2. TIA versus CVA; patient's symptoms has resolved; patient was evaluated by telemetry stroke and TPA was not recommended due to resolution of symptoms and acute anemia; neurology is following and recommending to resume aspirin 325 mg daily and avoid dual antiplatelet therapy because of increased risk of bleeding given patient's hemoglobin was at 7.4 upon admission dropping down to 5.6 in 24 hours - Patient is recommended to continue Lipitor 40 mg daily for secondary stroke prophylaxis - MRI is not recommended at this time since it will not regional climate change analyst; patient will have an MRI if continues to have repeated episodes of neuro deficit; continue with neuro checks every 4 hours - PT/OT and PRINCIPAL ACCOUNT CLERK is consulted - DVT prophylaxis with heparin or Lovenox is recommended once hemoglobin stabilizes 3. Acute on chronic anemia; hemoglobin was 7.4 upon admission dropping down to 5.6 within 24 hours; patient received transfusion with 1 unit of packed RBCs resulting in improved hemoglobin of 8.3; hemoglobin has dropped down to 7.4 again this morning - Patient reports colonoscopy that was done 'long time ago' and is not certain about the findings - We will monitor hemoglobin every 8 hours; patient has been placed on Protonix 40 mg IV every 12 hours; stool occult blood on stool samples; order iron studies and make recommendations accordingly - We will consult general surgery for possible EGD/colonoscopy 4. Peripheral vascular disease; continue with aspirin and statin therapy 5. Hyperlipidemia; Lipitor 40 mg daily 6. Diabetes mellitus 2; patient takes Actos 30 mg at home; we will monitor Accu-Cheks before meals and at bedtime with insulin sliding scale 7. Hypertension; continue with Imdur, lisinopril 5 mg daily, metoprolol 25 mg daily Anemia. Patient will need endoscopic workup. This can be done as an outpatient as the patient appears to be stable. Plan - Discharge Summary New Discharge Prescriptions: No Action Aspirin EC [Ecotrin] 325 mg PO DAILY Nitroglycerin Sl Tabs [Nitrostat] 0.4 mg SUBLINGUAL Q5M PRN PRN Reason: Chest Pain Cholecalciferol [Vitamin D3 (25 Mcg = 1000 Iu)] 50 mcg PO DAILY Multivit-Min/FA/Lycopen/Lutein [Centrum Silver Men Tablet] 1 tab PO DAILY Pioglitazone [Actos] 30 mg PO DAILY Atorvastatin [Lipitor] 40 mg PO HS lisinopriL [Zestril] 5 mg PO DAILY Ferrous Sulfate [Feosol] 325 mg PO MOWEFR Discharge Medication List Aspirin EC [Ecotrin] 325 mg PO DAILY 06/27/17 [History] Atorvastatin [Lipitor] 40 mg PO HS 08/12/20 [History] Pioglitazone [Actos] 30 mg PO DAILY 08/12/20 [History] lisinopriL [Zestril] 5 mg PO DAILY 08/12/20 [History] Cholecalciferol [Vitamin D3 (25 Mcg = 1000 Iu)] 50 mcg PO DAILY 04/08/22 [History] Ferrous Sulfate [Feosol] 325 mg PO MOWEFR 04/08/22 [History] Multivit-Min/FA/Lycopen/Lutein [Centrum Silver Men Tablet] 1 tab PO DAILY 04/08/22 [History] Nitroglycerin Sl Tabs [Nitrostat] 0.4 mg SUBLINGUAL Q5M PRN 04/08/22 [History] Follow up Appointment(s)/Referral(s): Jose Francisco Renee MD [STAFF PHYSICIAN] - 2 Weeks Patient Instructions/Handouts: Angina (DC), Heart Catheterization (DC)
--- NOTE | 2022-04-11 22:10 | PN ---
PROGRESS NOTE SUBJECTIVE: This is a 76-year-old gentleman who has presented to the hospital with chest pain, underwent cardiac catheterization and PTCA of the mid right coronary artery and was found to have severe anemia, and we decided to manage it medically at that time. He is doing well and is free of angina. OBJECTIVE: GENERAL: On exam, comfortable at rest. VITAL SIGNS: Stable. NECK: There is no jugular venous distention. CHEST: Reveals good air entry bilaterally. HEART: Reveals first and second heart sounds. Ejection systolic murmur in the aortic area. ABDOMEN: Soft. EXTREMITIES: Exam of extremities did not reveal any edema. Peripheral pulses are felt. ASSESSMENT: 1. Coronary artery disease. 2. Anemia. 3. Aortic stenosis. PLAN: The patient will continue current medications. We will undergo anemia workup tomorrow. MMODL / IJN: [id number] /
== END 2022-04-11 15:40 | disposition home or self-care (01) | DRG 251 ==
LOC: RADNMMAIN 08:40 → 6NMEDSUR 11:59 → 3SCARD 04-09 09:02
PROVIDERS: ADMIT Family Medicine; ATTEND Family Medicine
PROC: 02703ZZ Dilation of Coronary Artery, One Artery, Percutaneous Approach (ICD-10-PCS; 2022-04-09)
PROC: 5A1223Z Performance of Cardiac Pacing, Continuous (ICD-10-PCS; 2022-04-09)
PROC: B2111ZZ Fluoroscopy of Multiple Coronary Arteries using Low Osmolar Contrast (ICD-10-PCS; principal; 2022-04-09 09:00)
PROC: 4A023N7 Measurement of Cardiac Sampling and Pressure, Left Heart, Percutaneous Approach (ICD-10-PCS; principal; 2022-04-09 09:00)
PROC: 30233N1 Transfusion of Nonautologous Red Blood Cells into Peripheral Vein, Percutaneous Approach (ICD-10-PCS; 2022-04-09 09:00)
DX: I25.110 Atherosclerotic heart disease of native coronary artery with unstable angina pectoris (principal); R47.01 Aphasia; I65.22 Occlusion and stenosis of left carotid artery; K57.90 Diverticulosis of intestine, part unspecified, without perforation or abscess without bleeding; I35.0 Nonrheumatic aortic (valve) stenosis; R29.700 NIHSS score 0; I10 Essential (primary) hypertension; E78.5 Hyperlipidemia, unspecified; E11.51 Type 2 diabetes mellitus with diabetic peripheral angiopathy without gangrene; D64.9 Anemia, unspecified; Z79.82 Long term (current) use of aspirin; Z79.84 Long term (current) use of oral hypoglycemic drugs; Z79.899 Other long term (current) drug therapy; Z87.891 Personal history of nicotine dependence; Z53.09 Procedure and treatment not carried out because of other contraindication; Z87.19 Personal history of other diseases of the digestive system; Z71.3 Dietary counseling and surveillance
CPT/HCPCS: 70450; 70496; 70498; 78451; 80048; 80061; 85025; 85027; 86850; 86900; 86901; 86920; 92920; 93306; 93458; 94760

== ENCOUNTER 2022-04-21 12:59 | Inpatient (IN) | payer MEDICARE ==
--- NOTE | 2022-04-21 13:40 | ED ---
Chest Pain HPI - General Chief Complaint: Chest Pain Stated Complaint: chest pain Time Seen by Provider: 04/21/22 13:25 Source: patient, EMS, RN notes reviewed Mode of arrival: EMS Limitations: no limitations - History of Present Illness Initial Comments: 76-year-old male presents by EMS with complaints of chest pain shortness of breath which started earlier this morning. He points to left side of his chest the has had chills and shakes this morning also. No overt cough no fever. He has improved he was given aspirin nitroglycerin and route. MD Complaint: chest pain, other - Related Data Home Medications Medication Instructions Recorded Confirmed Aspirin EC [Ecotrin] 325 mg PO DAILY 06/27/17 04/21/22 Atorvastatin [Lipitor] 40 mg PO HS 08/12/20 04/21/22 Pioglitazone [Actos] 30 mg PO DAILY 08/12/20 04/21/22 lisinopriL [Zestril] 5 mg PO DAILY 08/12/20 04/21/22 Cholecalciferol [Vitamin D3 (25 50 mcg PO DAILY 04/08/22 04/21/22 Mcg = 1000 Iu)] Ferrous Sulfate [Feosol] 325 mg PO MOWEFR 04/08/22 04/21/22 Multivit-Min/FA/Lycopen/Lutein 1 tab PO DAILY 04/08/22 04/21/22 [Centrum Silver Men Tablet] Nitroglycerin Sl Tabs [Nitrostat] 0.4 mg SUBLINGUAL Q5M PRN 04/08/22 04/21/22 Previous Rx's Medication Instructions Recorded Isosorbide Mononitrate ER [Imdur] 30 mg PO DAILY 30 Days #30 tab 04/11/22 Metoprolol Succinate (ER) [Toprol 25 mg PO DAILY 30 Days #30 tab 04/11/22 XL] Ranolazine [Ranexa] 500 mg PO Q12HR 30 Days #60 tab 04/11/22 Allergies Allergy/AdvReac Type Severity Reaction Status Date / Time No Known Allergies Allergy Verified 04/21/22 14:43 Review of Systems ROS Statement: Those systems with pertinent positive or pertinent negative responses have been documented in the HPI. ROS Other: All systems not noted in ROS Statement are negative. EKG Findings - EKG Results: EKG: interpreted by ERMD (EKG evaluated by me interpreted by me showed a supraventricular tachycardia rate 102 QRS religion a 90 QT since QTC 3:30/[address] configuration evidence of first-degree AV block configuration is similar to that of 04/08/22) Past Medical History Past Medical History: Coronary Artery Disease (CAD), Diabetes Mellitus, GI Bleed, Hyperlipidemia, Hypertension Additional Past Medical History / Comment(s): rectal bleeding/diverticulitis; poor circ. slight blockage carotid arteries. History of Any Multi-Drug Resistant Organisms: None Reported Additional Past Surgical History / Comment(s): hemorrhoidectomy, colonoscopy. Past Anesthesia/Blood Transfusion Reactions: No Reported Reaction Past Psychological History: No Psychological Hx Reported Smoking Status: Former smoker Past Alcohol Use History: Occasional Additional Past Alcohol Use History / Comment(s): Smoked for 50 years, quit 8 years ago. Past Drug Use History: None Reported - Past Family History Father Family Medical History: Cancer Mother Family Medical History: Cancer General Exam - General Exam Comments Initial Comments: This is a well-developed well-nourished awake alert oriented 4 male Limitations: no limitations General appearance: alert, anxious Head exam: Present: atraumatic, normocephalic, normal inspection Eye exam: Present: normal appearance, PERRL, EOMI. Absent: scleral icterus, conjunctival injection, periorbital swelling ENT exam: Present: normal exam, mucous membranes moist Neck exam: Present: normal inspection, full ROM, other (No stridor JVD or bruits). Absent: tenderness, meningismus, lymphadenopathy Respiratory exam: Present: decreased breath sounds, other (Bibasilar crepitus). Absent: respiratory distress, wheezes, rales, rhonchi, stridor Cardiovascular Exam: Present: regular rate, normal rhythm, normal heart sounds. Absent: systolic murmur, diastolic murmur, rubs, gallop, clicks GI/Abdominal exam: Present: soft, normal bowel sounds. Absent: distended, tenderness, guarding, rebound, rigid Extremities exam: Present: normal inspection, full ROM, normal capillary refill. Absent: tenderness, pedal edema, joint swelling, calf tenderness Back exam: Present: normal inspection Neurological exam: Present: alert, oriented X3, CN II-XII intact Psychiatric exam: Present: normal affect, normal mood Skin exam: Present: warm, dry, intact, normal color. Absent: rash Course Vital Signs 04/21/22 04/21/22 04/21/22 13:19 13:32 15:04 Temperature 100.2 F H Pulse Rate 97 89 77 Respiratory 24 16 18 Rate Blood Pressure 161/74 110/72 O2 Sat by Pulse 84 L 100 98 Oximetry 04/21/22 04/21/22 18:36 18:55 Temperature 97.7 F Pulse Rate 75 Respiratory 18 Rate Blood Pressure 114/55 O2 Sat by Pulse 100 Oximetry Chest Pain MDM - MDM I did review the imaging evidence a right lower lobe infiltrate congestive changes. I did discuss findings the patient family members as well as with Dr. Lopez and later with Dr. Blackburn patient be admitted evidence of CHF evidence elevated troponin does have a fever concern for right lower lobe infiltrate on top of the ingested changes. Was pt. sent in by a medical professional or institution? @ No-[by , PA, VACUUM PLASTIC FORMING MACHINE OPERATOR, urgent care, hospital, or penitentiary] Did you speak to anyone other than the patient for history? @ Family-[EMS, parent, family, police, friend?] Did you review nursing and triage notes? @ Yes and agree-[agree or disagree, why?] Were old charts reviewed? @ Yes EKGs-[outside hosp., previous admissions, EMS record, old EKG, old radiological studies, urgent care reports/EKGs, penitentiary records?] Differential Diagnosis? @ Chest pain pneumonia COPD exacerbation CHF-[chest pain, altered mental status abdominal pain women, abdominal pain men, vaginal bleeding, weakness, fever, dyspnea, syncope, headache, dizziness, GI bleed, back pain, seizure] EKG interpreted by me (3pts min.)? @ Yes as above is as above X-rays interpreted by me (1pt min.)? @ -[none] CT interpreted by me (1pt min.)? @ CT as above U/S interpreted by me (1pt. min.)? @ -[none] What testing was considered but not performed? (CT, X-rays, U/S, labs)? Why? @ [CT, X-rays, U/S, labs? Why?] What meds were considered but not given? Why? @ -[none] Did you discuss the management of the patient with other professionals? @ Dr. John Blackburn-[professionals i.e. , PA, VACUUM PLASTIC FORMING MACHINE OPERATOR, Lab, RT, Psych Nurse, Manufacturing Business Analyst, Recruiting Coordinator, Teacher, Pigment Mixer, block and case maker? Give summary] Did you reconcile home meds? @ -[none] Was smoking cessation discussed for >3mins.? @ -[none] Was critical care preformed (if so, how long)? @ Yes 40 minutes-[none] Were there social determinants of health that impacted care today? How? (Homelessness, low income, unemployed, alcoholism, drug addiction, transportatio n, low edu. Level, literacy, decrease access to med. care, shelter, rehab)? @ -[Homelessness, low income, unemployed, alcoholism, drug addiction, transportation, low edu. Level, literacy, decrease access to med. care, shelter, rehab?] Was there de-escalation of care discussed even if they declined? (Discuss DNR or withdrawal of care, Hospice)? @ -[Discuss DNR or withdrawal of care, Hospice?] What co-morbidities impacted this encounter? (DM, HTN, Smoking, COPD, CAD, Cancer, CVA, Hep., AIDS, mental health diagnosis, sleep apnea, morbid obesity)? @ -[DM, HTN, Smoking, COPD, CAD, Cancer, CVA, Hep., AIDS, mental health diagnosis, sleep apnea, morbid obesity?] Was patient admitted / discharged? @ Patient was admitted-[hospital course] Undiagnosed new problem with uncertain prognosis? @ Non-ST elevation myocardial infarction, CHF, pneumonia-[none] Drug Therapy requiring intensive monitoring for toxicity (Heparin, Nitro, Insulin, Cardizem)? @ -[none] Were any procedures done? @ -[none] Diagnosis/symptom? @ NSTEMI, CHF, right lower lobe pneumonia, febrile illness, elevated d-dimer,-[default] Acute, or Chronic, or Acute on Chronic? @ Acute-[default] Uncomplicated (without systemic symptoms) or Complicated (systemic symptoms)? @ Congestive heart failure-[default] Side effects of treatment? @ -[none] Exacerbation, Progression, or Severe Exacerbation] @ -[no] Poses a threat to life or bodily function? @ Yes if left untreated-[no] Critical Care Time Critical Care Time: Yes Total Critical Care Time: 40 Critical Care Time: Critical care time included the initial presentation history physical labs x- rays multiple reevaluation the patient's response discussed with family initially admitted physician and consult admission orders documentation the above Disposition Clinical Impression: NSTEMI (non-ST elevated myocardial infarction), CHF (congestive heart failure), Pneumonia, Febrile illness, acute, Elevated d-dimer Disposition: ADMITTED IP TO THIS [facility] Condition: Fair Referrals: Michael Lopez MD [Primary Care Provider] - 1-2 days Decision Date: 04/21/22 Decision Time: 19:00
[2022-04-21 13:52] LABS: Anisocytosis Slight; Basophils % (A) 1 %; Eosinophils % (A) 0 %; HGB 11.3 gm/dL (13.0-17.5); Hypochromasia Marked; Lymphocytes # (A) 0.2 k/uL (1.0-4.8); Lymphocytes % (A) 4 %; MCH 27.9 pg (25.0-35.0); MCHC 31.2 g/dL (31.0-37.0); MCV 89.4 fL (80.0-100.0); Mean Platelet Volume 7.8; Monocytes # (A) 0.2 k/uL (0-1.0); Monocytes % (A) 3 %; Neutrophils # (A) 4.4 k/uL (1.3-7.7); Neutrophils % (A) 91 %; Platelet Count 195 k/uL (150-450); RBC 4.03 m/uL (4.30-5.90); RDW 16.7 % (11.5-15.5); WBC 4.9 k/uL (3.8-10.6)
[2022-04-21 13:58] LABS: Albumin 3.1 g/dL (3.5-5.0); Calcium 8.2 mg/dL (8.4-10.2); Magnesium 1.7 mg/dL (1.6-2.3); Potassium 4.7 mmol/L (3.5-5.1); Total Bilirubin 0.8 mg/dL (0.2-1.3); Total Protein 6.6 g/dL (6.3-8.2)
--- NOTE | 2022-04-21 14:00 | XR ---
EXAMINATION TYPE: XR chest 2V DATE OF EXAM: 04/21/2022 COMPARISON: 06/27/2017 INDICATION: Chest pain TECHNIQUE: Frontal and lateral views of the chest are obtained. FINDINGS: The heart size is normal. The pulmonary vasculature is normal. Scattered increased lung markings are present. This is greater in the right lower lobe. Correlate for pulmonary edema. Atelectasis in right lower lobe pneumonia could be considered. Consider atypical pn eumonia. Follow-up is recommended. IMPRESSION: 1. Right lower lobe infiltrate. Correlate for pneumonia atelectasis or atypical pneumonia. Some milde r increased lung markings are present within the remaining portions of the lung villa which could co rrelate with atypical pneumonia or pulmonary edema. Follow-up exams are recommended
[2022-04-21 14:11] LABS: INR 1.3 (<1.2); Partial Thromboplastin Time 27.7 sec (22.0-30.0); Prothrombin Time 13.1 sec (9.0-12.0)
--- NOTE | 2022-04-21 16:35 | CT ---
EXAMINATION TYPE: CT angio chest DATE OF EXAM: 04/21/2022 COMPARISON: 04/21/2022 and CTA 04/09/2022 HISTORY: 76-year-old male SOB and chest pain TECHNIQUE: Contiguous axial scanning of the chest performed with IV Contrast, patient injected with 6 6 mL of Isovue 370. Coronal/sagittal MIP reconstructions performed. CT DLP: 359.5 mGycm Automated exposure control for dose reduction was used. FINDINGS: The heart is upper limits of normal in size. No flattening of the interventricular septum. Mild reflu x into the IVC. Some LAD and proximal circumflex coronary artery calcifications are present. No peric ardial effusion. Mild atherosclerotic arch calcifications. There is occlusion of the left common carotid artery just a fter its takeoff. While there is satisfactory opacification of the pulmonary arterial system, the degree of severe graeme thing motion makes the exam markedly limited and nondiagnostic. No large central pulmonary embolus. N o definite pulmonary embolus is identified though most of the portions may be nondiagnostic. No thoracic adenopathy by CT size criteria. There are small bilateral pleural effusions. Diffuse septal lines and groundglass change throughout. Mild emphysematous change in the upper lungs. Mildly enlarged caliber to the main right and left pulmonary arteries up to 2.6 cm. ABDOMEN: Indeterminate hypodense lesion anterior mid liver measuring 5.1 cm. Ultrasound to further ev aluate. Unable to exclude a mass at this time. Bones: No osseous destructive process. IMPRESSION: 1. NEARLY NONDIAGNOSTIC DUE TO THE DEGREE OF HEAVY BREATHING MOTION. NO OBVIOUS EMBOLUS IS SEEN. 2. BORDERLINE HEART SIZE, PULMONARY ARTERIAL HYPERTENSION, SMALL BILATERAL PLEURAL EFFUSIONS, DIFFUSE SEPTAL LINES AND GROUNDGLASS CHANGE. CORRELATE FOR CHF AND DEVELOPING PULMONARY EDEMA. 3. REDEMONSTRATED LEFT COMMON CAROTID ARTERY OCCLUSION JUST AFTER ITS TAKEOFF. FINDING WAS PRESENT ON THE CTA OF 04/09/2022 4. BACKGROUND COPD WITH MILD EMPHYSEMA. 5. A 5.1 CM HYPODENSE LESION ANTERIOR MID LIVER. ULTRASOUND TO FURTHER EVALUATE. UNABLE TO EXCLUDE A MASS AT THIS TIME.
[2022-04-21] MEDS ORDERED: cefTRIAXone IN SWFI 1,000 MG/10 ML SYRINGE IVP STA (19:59)
[2022-04-21] MEDS ORDERED: AZITHROMYCIN 500 MG in SODIUM CHLORIDE 0.9% 250 ML IVPB STA (20:01)
[2022-04-21] MEDS ORDERED: HEPARIN SODIUM 1,000 UN/ML (10ML VL) IV ONE (20:10)
[2022-04-21] MEDS ORDERED: NITROGLYCERIN SL TABS 0.4 MG TAB SUBLINGUAL PRN (20:10)
[2022-04-21] MEDS ORDERED: FUROSEMIDE 10 MG/ML 4 ML VIAL IV STA (20:14)
--- NOTE | 2022-04-21 21:37 | ED ---
Medical Decision Making - Medical Decision Making Reevaluation patient reveals he is feeling much improved over the initial presentation no chest pain no shortness of breath he's resting comfortably his troponin however did come back at a repeat draw of over 17.3 with a personal was just over 2. Repeat EKG showed a normal sinus rhythm of 66 evidence of first- degree AV block WA interval 260 QRS duration 93 QT since QTC 414/[address]-T wave changes. I did notify Dr. Blackburn he is aware the findings patient will continue with current. Vital signs are stable - Lab Data Result diagrams: 04/21/22 13:32 04/21/22 13:32 Lab Results 04/21/22 04/21/22 04/21/22 Range/Units 13:32 13:32 13:32 WBC 4.9 (3.8-10.6) k/uL RBC 4.03 L (4.30-5.90) m/uL Hgb 11.3 L (13.0-17.5) gm/dL Hct 36.0 L (39.0-53.0) % MCV 89.4 (80.0-100.0) fL MCH 27.9 (25.0-35.0) pg MCHC 31.2 (31.0-37.0) g/dL RDW 16.7 H (11.5-15.5) % Plt Count 195 (150-450) k/uL MPV 7.8 Neutrophils % 91 % Lymphocytes % 4 % Monocytes % 3 % Eosinophils % 0 % Basophils % 1 % Neutrophils # 4.4 (1.3-7.7) k/uL Lymphocytes # 0.2 L (1.0-4.8) k/uL Monocytes # 0.2 (0-1.0) k/uL Eosinophils # 0.0 (0-0.7) k/uL Basophils # 0.0 (0-0.2) k/uL Hypochromasia Marked Anisocytosis Slight PT 13.1 H (9.0-12.0) sec INR 1.3 H (<1.2) APTT 27.7 (22.0-30.0) sec D-Dimer 5.13 H (<0.60) mg/L FEU Sodium 136 L (137-145) mmol/L Potassium 4.7 (3.5-5.1) mmol/L Chloride 107 (98-107) mmol/L Carbon Dioxide 16 L (22-30) mmol/L Anion Gap 13 mmol/L BUN 34 H (9-20) mg/dL Creatinine 1.22 (0.66-1.25) mg/dL Est GFR (CKD-EPI)AfAm 66 (>60 ml/min/1.73 sqM) Est GFR (CKD-EPI)NonAf 57 (>60 ml/min/1.73 sqM) Glucose 244 H (74-99) mg/dL Calcium 8.2 L (8.4-10.2) mg/dL Magnesium 1.7 (1.6-2.3) mg/dL Total Bilirubin 0.8 (0.2-1.3) mg/dL AST 48 (17-59) U/L ALT 27 (4-49) U/L Alkaline Phosphatase 123 (38-126) U/L Troponin I (0.000-0.034) ng/mL NT-Pro-B Natriuret Pep pg/mL Total Protein 6.6 (6.3-8.2) g/dL Albumin 3.1 L (3.5-5.0) g/dL Lipase 57 (23-300) U/L Influenza Type A (PCR) (Not Detectd) Influenza Type B (PCR) (Not Detectd) RSV (PCR) (Not Detectd) SARS-CoV-2 (PCR) (Not Detectd) 04/21/22 04/21/22 04/21/22 Range/Units 13:32 13:32 13:47 WBC (3.8-10.6) k/uL RBC (4.30-5.90) m/uL Hgb (13.0-17.5) gm/dL Hct (39.0-53.0) % MCV (80.0-100.0) fL MCH (25.0-35.0) pg MCHC (31.0-37.0) g/dL RDW (11.5-15.5) % Plt Count (150-450) k/uL MPV Neutrophils % % Lymphocytes % % Monocytes % % Eosinophils % % Basophils % % Neutrophils # (1.3-7.7) k/uL Lymphocytes # (1.0-4.8) k/uL Monocytes # (0-1.0) k/uL Eosinophils # (0-0.7) k/uL Basophils # (0-0.2) k/uL Hypochromasia Anisocytosis PT (9.0-12.0) sec INR (<1.2) APTT (22.0-30.0) sec D-Dimer (<0.60) mg/L FEU Sodium (137-145) mmol/L Potassium (3.5-5.1) mmol/L Chloride (98-107) mmol/L Carbon Dioxide (22-30) mmol/L Anion Gap mmol/L BUN (9-20) mg/dL Creatinine (0.66-1.25) mg/dL Est GFR (CKD-EPI)AfAm (>60 ml/min/1.73 sqM) Est GFR (CKD-EPI)NonAf (>60 ml/min/1.73 sqM) Glucose (74-99) mg/dL Calcium (8.4-10.2) mg/dL Magnesium (1.6-2.3) mg/dL Total Bilirubin (0.2-1.3) mg/dL AST (17-59) U/L ALT (4-49) U/L Alkaline Phosphatase (38-126) U/L Troponin I 2.300 H* (0.000-0.034) ng/mL NT-Pro-B Natriuret Pep 4310 pg/mL Total Protein (6.3-8.2) g/dL Albumin (3.5-5.0) g/dL Lipase (23-300) U/L Influenza Type A (PCR) Not Detected (Not Detectd) Influenza Type B (PCR) Not Detected (Not Detectd) RSV (PCR) Not Detected (Not Detectd) SARS-CoV-2 (PCR) Not Detected (Not Detectd) Disposition Clinical Impression: NSTEMI (non-ST elevated myocardial infarction), CHF (congestive heart failure), Pneumonia, Febrile illness, acute, Elevated d-dimer Disposition: ADMITTED IP TO THIS HOSP Condition: Fair
[2022-04-21] MEDS: NITROGLYCERIN OINT 1 INCH/GM PACKET TOPICAL SCH (21:57)
[2022-04-21] MEDS: ATORVASTATIN 40 MG TAB PO SCH (22:53)
[2022-04-21] MEDS: SODIUM CHLORIDE 0.9% 1,000 ML IV SCH (22:53)
[2022-04-21] MEDS: HEPARIN SOD,PORK IN 0.45% NACL 25,000 UNIT in 0.45% NACL 1 250ML.BAG IV SCH (22:53)
[2022-04-21] MEDS: RANOLAZINE 500 MG TAB.ER.12H PO SCH (22:53)
[2022-04-22] MEDS: NITROGLYCERIN OINT 1 INCH/GM PACKET TOPICAL SCH (05:18)
[2022-04-22] MEDS ORDERED: HEPARIN SODIUM 1,000 UN/ML (10ML VL) IVP ONE (07:49)
--- NOTE | 2022-04-22 08:53 | P.HPIM ---
History of Present Illness H&P Date: 04/22/22 Chief Complaint: Chest pain This is a 76-year-old male who presented to the ER by EMS with complaints of chest pain and shortness of breath. He reports the pain went from the left side of his chest to the right. The patient does have a recent history of a heart catheterization by Dr. Bedoya right before [place]. Past medical history as noted below. Chest x-ray showed possible infiltrate. Patient is seen sitting in chair eating breakfast this morning, with no current complaints of pain. He does remain on a heparin drip. Cardiology has been consulted. Review of Systems Constitutional: Denies chills, Denies fever Cardiovascular: Reports chest pain, Denies edema Respiratory: Reports dyspnea, Denies cough Gastrointestinal: Denies abdominal pain, Denies change in bowel habits Musculoskeletal: Denies arm numbness/tingling, Denies leg numbness/tingling Neurological: Denies confusion, Denies numbness Past Medical History Past Medical History: Coronary Artery Disease (CAD), Diabetes Mellitus, GI Bleed, Hyperlipidemia, Hypertension Additional Past Medical History / Comment(s): rectal bleeding/diverticulitis; poor circ. slight blockage carotid arteries. History of Any Multi-Drug Resistant Organisms: None Reported Additional Past Surgical History / Comment(s): hemorrhoidectomy, colonoscopy. Past Anesthesia/Blood Transfusion Reactions: No Reported Reaction Past Psychological History: No Psychological Hx Reported Smoking Status: Former smoker Past Alcohol Use History: Occasional Additional Past Alcohol Use History / Comment(s): Smoked for 50 years, quit 8 years ago. Past Drug Use History: None Reported - Past Family History Father Family Medical History: Cancer Mother Family Medical History: Cancer Medications and Allergies Home Medications Medication Instructions Recorded Confirmed Type Aspirin EC [Ecotrin] 325 mg PO DAILY 06/27/17 04/21/22 History Atorvastatin [Lipitor] 40 mg PO HS 08/12/20 04/21/22 History Pioglitazone [Actos] 30 mg PO DAILY 08/12/20 04/21/22 History lisinopriL [Zestril] 5 mg PO DAILY 08/12/20 04/21/22 History Cholecalciferol [Vitamin D3 (25 50 mcg PO DAILY 04/08/22 04/21/22 History Mcg = 1000 Iu)] Ferrous Sulfate [Feosol] 325 mg PO MOWEFR 04/08/22 04/21/22 History Multivit-Min/FA/Lycopen/Lutein 1 tab PO DAILY 04/08/22 04/21/22 History [Centrum Silver Men Tablet] Nitroglycerin Sl Tabs [Nitrostat] 0.4 mg SUBLINGUAL Q5M PRN 04/08/22 04/21/22 History Isosorbide Mononitrate ER [Imdur] 30 mg PO DAILY 30 Days #30 tab 04/11/2204/21 Rx Metoprolol Succinate (ER) [Toprol 25 mg PO DAILY 30 Days #30 tab 04/11/22 04/21/22 Rx XL] Ranolazine [Ranexa] 500 mg PO Q12HR 30 Days #60 tab 04/11/22 04/21/22 Rx Allergies Allergy/AdvReac Type Severity Reaction Status Date / Time No Known Allergies Allergy Verified 04/21/22 14:43 Physical Exam Vitals: Vital Signs Temp Pulse Resp BP Pulse Ox 04/22/22 08:33 100 04/22/22 07:29 64 16 122/57 100 04/22/22 06:52 98.2 F 70 16 110/58 100 04/22/22 03:03 72 16 134/59 100 04/22/22 01:28 98.8 F 87 18 150/60 98 04/21/22 21:23 98.5 F 67 16 107/46 100 04/21/22 18:55 97.7 F 04/21/22 18:36 75 18 114/55 100 04/21/22 15:04 77 18 110/72 98 04/21/22 13:32 89 16 100 04/21/22 13:19 100.2 F H 97 24 161/74 84 L - Constitutional General appearance: cooperative, no no acute distress - EENT Eyes: EOMI, PERRLA - Neck Neck: normal ROM, no rigidity - Respiratory Respiratory: bilateral: CTA - Cardiovascular Rhythm: regular Heart sounds: normal: S1, S2 - Gastrointestinal General gastrointestinal: normal bowel sounds, soft - Integumentary Integumentary: normal, normal turgor - Psychiatric Psychiatric: A&O x's 3, appropriate affect, intact judgment & insight Results CBC & Chem 7: 04/21/22 13:32 04/21/22 13:32 Labs: Abnormal Lab Results - Last 24 Hours (Table) 04/21/22 04/21/22 04/21/22 Range/Units 13:32 13:32 13:32 RBC 4.03 L (4.30-5.90) m/uL Hgb 11.3 L (13.0-17.5) gm/dL Hct 36.0 L (39.0-53.0) % RDW 16.7 H (11.5-15.5) % Lymphocytes # 0.2 L (1.0-4.8) k/uL PT 13.1 H (9.0-12.0) sec INR 1.3 H (<1.2) APTT (22.0-30.0) sec D-Dimer 5.13 H (<0.60) mg/L FEU Sodium 136 L (137-145) mmol/L Carbon Dioxide 16 L (22-30) mmol/L BUN 34 H (9-20) mg/dL Glucose 244 H (74-99) mg/dL Calcium 8.2 L (8.4-10.2) mg/dL Troponin I (0.000-0.034) ng/mL Albumin 3.1 L (3.5-5.0) g/dL 04/21/22 04/21/22 04/22/22 Range/Units 13:32 20:30 00:17 RBC (4.30-5.90) m/uL Hgb (13.0-17.5) gm/dL Hct (39.0-53.0) % RDW (11.5-15.5) % Lymphocytes # (1.0-4.8) k/uL PT (9.0-12.0) sec INR (<1.2) APTT (22.0-30.0) sec D-Dimer (<0.60) mg/L FEU Sodium (137-145) mmol/L Carbon Dioxide (22-30) mmol/L BUN (9-20) mg/dL Glucose (74-99) mg/dL Calcium (8.4-10.2) mg/dL Troponin I 2.300 H* 17.300 H* 20.900 H* (0.000-0.034) ng/mL Albumin (3.5-5.0) g/dL 04/22/22 Range/Units 05:59 RBC (4.30-5.90) m/uL Hgb (13.0-17.5) gm/dL Hct (39.0-53.0) % RDW (11.5-15.5) % Lymphocytes # (1.0-4.8) k/uL PT (9.0-12.0) sec INR (<1.2) APTT 35.5 H (22.0-30.0) sec D-Dimer (<0.60) mg/L FEU Sodium (137-145) mmol/L Carbon Dioxide (22-30) mmol/L BUN (9-20) mg/dL Glucose (74-99) mg/dL Calcium (8.4-10.2) mg/dL Troponin I (0.000-0.034) ng/mL Albumin (3.5-5.0) g/dL Assessment and Plan (1) CHF (congestive heart failure) Current Visit: Yes Status: Acute Code(s): I50.9 - HEART FAILURE, UNSPECIFIED SNOMED Code(s): 02307347 (2) NSTEMI (non-ST elevated myocardial infarction) Current Visit: Yes Status: Acute Code(s): I21.4 - NON-ST ELEVATION (NSTEMI) MYOCARDIAL INFARCTION SNOMED Code(s): 75150819 (3) Pneumonia Current Visit: Yes Status: Acute Code(s): J18.9 - PNEUMONIA, UNSPECIFIED ORGANISM SNOMED Code(s): 840471158 (4) CAD (coronary artery disease) Current Visit: No Status: Acute Code(s): I25.10 - ATHSCL HEART DISEASE OF [place] CORONARY ARTERY W/O ANG PCTRS SNOMED Code(s): 10407165 (5) Chest pain Current Visit: No Status: Acute Code(s): R07.9 - CHEST PAIN, UNSPECIFIED SNOMED Code(s): 32177445 (6) Diabetes Current Visit: No Status: Acute Code(s): E11.9 - TYPE 2 DIABETES MELLITUS WITHOUT COMPLICATIONS SNOMED Code(s): 43057889 (7) Elevated d-dimer Current Visit: Yes Status: Acute Code(s): R79.89 - OTHER SPECIFIED ABNORMAL FINDINGS OF BLOOD CHEMISTRY SNOMED Code(s): 839842555 Plan: Cardiology has been consulted, will await their recommendations. Troponins remain elevated. Continue to monitor closely. Patient seen and evaluated by nurse practitioner, physician in agreement with plan
[2022-04-22] MEDS: MULTIVITAMINS, THERA 1 EACH TAB PO SCH (08:55)
[2022-04-22] MEDS: RANOLAZINE 500 MG TAB.ER.12H PO SCH ×2 (08:55→20:47)
[2022-04-22] MEDS: CHOLECALCIFEROL 25 MCG (1000 IU) TABLET PO SCH (08:55)
[2022-04-22] MEDS: METOPROLOL SUCCINATE (ER) 25 MG TAB.ER.24H PO SCH (08:56)
[2022-04-22] MEDS: ASPIRIN 325 MG TAB PO SCH (08:56)
[2022-04-22] MEDS: ISOSORBIDE MONONITRATE ER 30 MG TAB.ER.24H PO SCH (08:56)
[2022-04-22] MEDS ORDERED: NON FORMULARY DRUG (Aspirin Ec 325 MG Tablet.Dr) PO SCH (09:00)
[2022-04-22] MEDS ORDERED: lisinopriL 5 MG TAB PO SCH (09:00)
[2022-04-22] MEDS ORDERED: VANCOMYCIN IV PER PHARMACY 1 EACH MISC MISCELLANE PRN (09:39)
[2022-04-22] MEDS ORDERED: VANCOMYCIN 1,500 MG in SODIUM CHLORIDE 0.9% 500 ML 500 ML IVPB SCH (10:00)
--- NOTE | 2022-04-22 13:44 | P.CRDCN ---
History of Present Illness Consult date: 04/22/22 Consult reason: non-Q-wave SD History of present illness: History of present illness: This is a 76-year-old male with past medical history significant for peripheral vascular disease, known carotid occlusion follows with Dr. Lawrence, Dm type 2, hypertension, hyperlipidemia, chronic foot wounds. Patient has been recently established with Dr. Bedoya after he presented to the hospital for an outpatient Lexiscan stress test on April 08. Due to his symptoms, it was decided the patient would undergo cardiac catheterization instead of stress test. He was found to have critical disease in the mid RCA, severe disease in the proximal left circumflex status post PTCA ballooning of the right coronary artery . No stent was placed at that time as patient's hemoglobin came back at 5.6 and workup was done for anemia. Echocardiogram at that time revealed normal biventricular dimension and systolic function. Moderate aortic stenosis with mean gradient of 20 mmHg. Mild mitral regurgitation. Patient presented to the hospital due to chest pain and shortness of breath along with chills and rigors. Chest pain has resolved. Patient is seen today in the emergency center waiting for a bed on the cardiac stepdown unit. Patient has been started on a heparin drip. EKG sinus rhythm with nonspecific T-wave inversions WBC 4.9, hemoglobin 11.3, platelet count 195. D-dimer 5.13. Sodium 136, potassium 4.7, BUN 34 and creatinine 1.2 to. Troponin 2.3, 17.3, 20.9. ProBNP 4310. Influenza A, influenza B, RSV, Covid not detected. Blood culture gram- positive cocci in clusters. Chest x-ray reveals right lower lobe infiltrate. Correlate for pneumonia, atelectasis or atypical pneumonia. Some mild increased lung markings that may correlate with atypical pneumonia or pulmonary edema. CTA of the chest revealed nearly nondiagnostic due to heavy breathing motion. Borderline heart size, pulmonary artery hypertension, small bilateral pleural effusions, diffuse septal lines and groundglass change. Correlate for heart failure and developing pulmonary edema. Redemonstrated left common carotid artery occlusion. Background COPD with mild emphysema. 5.1 cm hypodense lesion mid liver. Home cardiac medications: Aspirin 325 mg daily, Lipitor 40 mg daily, Imdur 30 mg daily, lisinopril 5 mg daily, Toprol-XL 25 mg daily, Ranexa 500 mg every 12 hours Review Of Systems: At the time of my evaluation Constitutional: No fever, reports chills. No weakness, fatigue or lethargy. EENT: No headache. No dizziness. Lungs: No shortness of breath, cough, no sputum production. No wheezing. Cardiovascular: No chest pain, no lower extremity edema. No palpitations. No paroxysmal nocturnal dyspnea. No orthopnea. No lightheadedness or dizziness. No syncopal episodes. Abdominal: No abdominal pain. No nausea, vomiting. No diarrhea. No cons tipation. No bloody or tarry stools.. No loss of appetite. Genitourinary: No dysuria.. No urinary retention. Musculoskeletal: No myalgias. No muscle weakness, no gait dysfunction, no frequent falls. No back pain. No neck pain. Integumentary: Foot wounds. No rash or pruritus. No unusual bruising. Neurologic: No aphasia. No facial droop. No change in mentation. No head injury. No headache. No paralysis. No paresthesia. Psychiatric: No depression. No anxiety. Endocrine: No abnormal blood sugars. Physical examination: Gen: This is a 76-year-old male. He is resting in chair in the emergency center. VS: reviewed HEENT: Head is atraumatic, normocephalic. Pupils equal, round. Sclerae is anicteric. NECK: Supple. No JVD. LUNGS: Clear to auscultation. No wheezes or rhonchi. No intercostal retractions. HEART: Regular rate and rhythm. 2/6 systolic murmur right sternal border. ABDOMEN: Soft. No masses. No tenderness. EXTREMITIES: No pedal edema. No calf tenderness. NEUROLOGICAL: Patient is awake, alert and oriented x3. Assessment: Non-ST elevated myocardial infarction with known critical disease in the mid RCA, severe disease in the proximal left circumflex status post PTCA ballooning of the right coronary artery Chronic anemia Positive blood culture Chronic wounds lower extremities Hypertension Hyperlipidemia Carotid artery stenosis Diabetes mellitus type 2 Peripheral vascular disease Plan: Hold lisinopril low blood pressure and discontinue Nitropaste Continue heparin drip Await results of blood culture and repeat blood culture ordered Patient will require repeat cardiac catheterization and possible stent placement as he now has stable hemoglobin but bacteremia will need to be ruled out. Dr. Bedoya will be the rehabilitation construction specialist performing cardiac catheterization probably within the next 24 hours. Recommend continuing patient on aspirin 325 mg daily, Lipitor 40 mg daily, Imdur 30 mg daily, Toprol-XL 25 mg daily, Ranexa 500 mg every 12 hours Further recommendations to follow based upon clinical course Thank you kindly for this consultation. Nurse practitioner note has been reviewed, I agree with documented findings and plan of care. Patient was seen and examined. Past Medical History Past Medical History: Coronary Artery Disease (CAD), Diabetes Mellitus, GI Bleed, Hyperlipidemia, Hypertension Additional Past Medical History / Comment(s): rectal bleeding/diverticulitis; po or circ. slight blockage carotid arteries. History of Any Multi-Drug Resistant Organisms: None Reported Additional Past Surgical History / Comment(s): hemorrhoidectomy, colonoscopy. Past Anesthesia/Blood Transfusion Reactions: No Reported Reaction Past Psychological History: No Psychological Hx Reported Smoking Status: Former smoker Past Alcohol Use History: Occasional Additional Past Alcohol Use History / Comment(s): Smoked for 50 years, quit 8 years ago. Past Drug Use History: None Reported - Past Family History Father Family Medical History: Cancer Mother Family Medical History: Cancer Medications and Allergies Home Medications Medication Instructions Recorded Confirmed Type Aspirin EC [Ecotrin] 325 mg PO DAILY 06/27/17 04/21/22 History Atorvastatin [Lipitor] 40 mg PO HS 08/12/20 04/21/22 History Pioglitazone [Actos] 30 mg PO DAILY 08/12/20 04/21/22 History lisinopriL [Zestril] 5 mg PO DAILY 08/12/20 04/21/22 History Cholecalciferol [Vitamin D3 (25 50 mcg PO DAILY 04/08/22 04/21/22 History Mcg = 1000 Iu)] Ferrous Sulfate [Feosol] 325 mg PO MOWEFR 04/08/22 04/21/22 History Multivit-Min/FA/Lycopen/Lutein 1 tab PO DAILY 04/08/22 04/21/22 History [Centrum Silver Men Tablet] Nitroglycerin Sl Tabs [Nitrostat] 0.4 mg SUBLINGUAL Q5M PRN 04/08/22 04/21/22 History Isosorbide Mononitrate ER [Imdur] 30 mg PO DAILY 30 Days #30 tab 04/11/22 04/21/22 Rx Metoprolol Succinate (ER) [Toprol 25 mg PO DAILY 30 Days #30 tab 04/11/22 04/21/22 Rx XL] Ranolazine [Ranexa] 500 mg PO Q12HR 30 Days #60 tab 04/11/22 04/21/22 Rx Allergies Allergy/AdvReac Type Severity Reaction Status Date / Time No Known Allergies Allergy Verified 04/21/22 14:43 Physical Exam Vitals: Vital Signs Temp Pulse Resp BP Pulse Ox 04/22/22 08:33 100 04/22/22 07:29 64 16 122/57 100 04/22/22 06:52 98.2 F 70 16 110/58 100 04/22/22 03:03 72 16 134/59 100 04/22/22 01:28 98.8 F 87 18 150/60 98 04/21/22 21:23 98.5 F 67 16 107/46 100 04/21/22 18:55 97.7 F 04/21/22 18:36 75 18 114/55 100 04/21/22 15:04 77 18 110/72 98 04/21/22 13:32 89 16 100 04/21/22 13:19 100.2 F H 97 24 161/74 84 L Intake and Output 04/21/22 04/22/22 04/22/22 22:59 06:59 14:59 Intake Total 99.555 Balance 99.555 Intake: Intake, IV Titration 99.555 Amount Heparin Sod,Pork in 0.45% 99.555 NaCl 25,000 unit In 0.45 % NaCl 1 250ml.bag @ 12 UNITS/KG/HR 9.906 mls/hr IV .Q24H [facility] Rx#: [id number] Results 04/21/22 13:32 04/21/22 13:32 Cardiac Enzymes 04/21/22 04/21/22 04/21/22 Range/Units 13:32 13:32 20:30 AST 48 (17-59) U/L Troponin I 2.300 H* 17.300 H* (0.000-0.034) ng/mL 04/22/22 Range/Units 00:17 AST (17-59) U/L Troponin I 20.900 H* (0.000-0.034) ng/mL Coagulation 04/21/22 04/22/22 Range/Units 13:32 05:59 PT 13.1 H (9.0-12.0) sec APTT 27.7 35.5 H (22.0-30.0) sec CBC 04/21/22 Range/Units 13:32 WBC 4.9 (3.8-10.6) k/uL RBC 4.03 L (4.30-5.90) m/uL Hgb 11.3 L (13.0-17.5) gm/dL Hct 36.0 L (39.0-53.0) % Plt Count 195 (150-450) k/uL Comprehensive Metabolic Panel 04/21/22 Range/Units 13:32 Sodium 136 L (137-145) mmol/L Potassium 4.7 (3.5-5.1) mmol/L Chloride 107 (98-107) mmol/L Carbon Dioxide 16 L (22-30) mmol/L BUN 34 H (9-20) mg/dL Creatinine 1.22 (0.66-1.25) mg/dL Glucose 244 H (74-99) mg/dL Calcium 8.2 L (8.4-10.2) mg/dL AST 48 (17-59) U/L ALT 27 (4-49) U/L Alkaline Phosphatase 123 (38-126) U/L Total Protein 6.6 (6.3-8.2) g/dL Albumin 3.1 L (3.5-5.0) g/dL Current Medications Generic Name Dose Route Start Last Admin Trade Name Freq PRN Reason Stop Dose Admin Aspirin 325 mg 04/22/22 09:00 04/22/22 08:56 Aspirin 325 Mg Tab PO 325 mg DAILY SUSIE Administration Atorvastatin Calcium 40 mg 04/21/22 21:00 04/21/22 22:53 Atorvastatin 40 Mg Tab PO Not Given HS [facility] Cholecalciferol 50 mcg 04/22/22 09:00 04/22/22 08:55 Cholecalciferol 25 Mcg (1000 Iu) Tablet PO 50 mcg DAILY SUSIE Administration Ferrous Sulfate 325 mg 04/23/22 09:00 Ferrous Sulfate 325 Mg Tab PO MOWEFR [facility] Sodium Chloride 1,000 mls @ 20 mls/hr 04/21/22 20:15 04/21/22 22:53 Saline 0.9% IV 20 mls/hr .Q24H SUSIE Administration Heparin Sodium/Sodium Chloride 250 mls @ 9.906 mls/hr 04/21/22 20:15 04/22/22 08:56 25,000 unit/ Sodium Chloride IV 14 units/kg/hr .Q24H SUSIE 11.558 mls/hr Titration Protocol 12 UNITS/KG/HR Vancomycin HCl 1,500 mg/ 500 mls @ 167 mls/hr 04/22/22 10:00 Sodium Chloride IVPB Q16H SUSIE Isosorbide Mononitrate 30 mg 04/22/22 09:00 04/22/22 08:56 Isosorbide Mononitrate Er 30 Mg Tab.Er.24h PO 30 mg DAILY SUSIE Administration Lisinopril 5 mg 04/22/22 09:00 Lisinopril 5 Mg Tab PO DAILY SUSIE Metoprolol Succinate 25 mg 04/22/22 09:00 04/22/22 08:56 Metoprolol Succinate (Er) 25 Mg Tab.Er.24h PO 25 mg DAILY SUSIE Administration Multivitamins 1 each 04/22/22 09:00 04/22/22 08:55 Multivitamins, Thera 1 Each Tab PO 1 each DAILY SUSIE Administration Nitroglycerin 0.4 mg 04/21/22 20:10 Nitroglycerin Sl Tabs 0.4 Mg Tab SUBLINGUAL Q5M PRN Chest Pain Pioglitazone HCl 30 mg 04/22/22 09:00 Pioglitazone 30 Mg Tab PO DAILY SUSIE Ranolazine 500 mg 04/21/22 21:00 04/22/22 08:55 Ranolazine 500 Mg Tab.Er.12h PO 500 mg Q12HR SUSIE Administration Intake and Output 04/21/22 04/22/22 04/22/22 22:59 06:59 14:59 Intake Total 99.555 Balance 99.555 Intake: Intake, IV Titration 99.555 Amount Heparin Sod,Pork in 0.45% 99.555 NaCl 25,000 unit In 0.45 % NaCl 1 250ml.bag @ 12 UNITS/KG/HR 9.906 mls/hr IV .Q24H [facility] Rx#: [id number] 04/21/22 13:32 04/21/22 13:32
[2022-04-22 14:40] LABS: Chol/HDL Ratio 2.94 Ratio; LDL Cholesterol,Calculated 54.4 mg/dL (0.0-131.0); VLDL Calculation 18.88 mg/dL (5.00-40.00)
--- NOTE | 2022-04-22 16:20 | XR ---
EXAMINATION TYPE: XR foot complete RT DATE OF EXAM: 04/22/2022 COMPARISON: NONE HISTORY: 76-year-old male infected callus, pain TECHNIQUE: 3 views FINDINGS: Prominent osteopenia limiting the evaluation. Moderate-sized plantar heel spur. No sandeep ly tic destruction is seen. IMPRESSION: Limited due to pronounced osteopenia especially along the lateral forefoot. No sandeep lytic destructio n identified . Consider short interval radiographic follow-up. If high clinical concern, given the de gree of of demineralization particularly at the fourth and fifth TMT joints, MRI can be considered as an alternative.
[2022-04-22] MEDS: HEPARIN SOD,PORK IN 0.45% NACL 25,000 UNIT in 0.45% NACL 1 250ML.BAG IV SCH (16:42)
[2022-04-22] MEDS: ATORVASTATIN 40 MG TAB PO SCH (20:47)
[2022-04-22] MEDS: PIOGLITAZONE 30 MG TAB PO SCH (21:44)
[2022-04-22] MEDS: SODIUM CHLORIDE 0.9% 1,000 ML IV SCH (21:44)
--- NOTE | 2022-04-22 22:00 | P.CONS ---
History of Present Illness - Reason for Consult Consult date: 04/22/22 Positive blood culture bilateral foot wound Requesting physician: Michael Lopez - Chief Complaint Chest pain and shortness of breath x one day - History of Present Illness Patient is a 76-year-old male with a past medical history significant for coronary disease diabetes mellitus hypertension hyperlipidemia presenting to the ER yesterday afternoon for evaluation of chest pain and shortness of breath symptom has been going on for a day or 2 before presentation to the hospital patient denies any cough or sputum production denies any nausea no vomiting no abdominal pain or diarrhea patient also have a chronic nonhealing wound on the plantar aspect of both feet right greater than left patient on presentation to the hospital did have a low-grade fever 100.2 degree form height the patient denies high-grade fever or chills patient did have a normal white count D-dimer was elevated creatinine is normal troponin is elevated liver enzymes are normal influenza RSV and COVID testing was negative patient did have blood cultures drawn come back positive with gram-positive cocci patient was started on vancomycin infectious disease was consulted for further management of antibiotic therapy patient did have a chest x-ray with right lower lobe infiltrate CT angiogram of the chest was nondiagnostic for PE Review of Systems Positive point has been mentioned in the HPI rest of the systems are negative Past Medical History Past Medical History: Coronary Artery Disease (CAD), Diabetes Mellitus, GI Bleed, Hyperlipidemia, Hypertension Additional Past Medical History / Comment(s): rectal bleeding/diverticulitis; poor circ. slight blockage carotid arteries. History of Any Multi-Drug Resistant Organisms: None Reported Additional Past Surgical History / Comment(s): hemorrhoidectomy, colonoscopy. Past Anesthesia/Blood Transfusion Reactions: No Reported Reaction Past Psychological History: No Psychological Hx Reported Smoking Status: Former smoker Past Alcohol Use History: Occasional Additional Past Alcohol Use History / Comment(s): Smoked for 50 years, quit 8 years ago. Past Drug Use History: None Reported - Past Family History Father Family Medical History: Cancer Mother Family Medical History: Cancer Medications and Allergies Home Medications Medication Instructions Recorded Confirmed Type Aspirin EC [Ecotrin] 325 mg PO DAILY 06/27/17 04/21/22 History Atorvastatin [Lipitor] 40 mg PO HS 08/12/20 04/21/22 History Pioglitazone [Actos] 30 mg PO DAILY 08/12/20 04/21/22 History lisinopriL [Zestril] 5 mg PO DAILY 08/12/20 04/21/22 History Cholecalciferol [Vitamin D3 (25 50 mcg PO DAILY 04/08/22 04/21/22 History Mcg = 1000 Iu)] Ferrous Sulfate [Feosol] 325 mg PO MOWEFR 04/08/22 04/21/22 History Multivit-Min/FA/Lycopen/Lutein 1 tab PO DAILY 04/08/22 04/21/22 History [Centrum Silver Men Tablet] Nitroglycerin Sl Tabs [Nitrostat] 0.4 mg SUBLINGUAL Q5M PRN 04/08/22 04/21/22 History Isosorbide Mononitrate ER [Imdur] 30 mg PO DAILY 30 Days #30 tab 04/11/22 04/21/22 Rx Metoprolol Succinate (ER) [Toprol 25 mg PO DAILY 30 Days #30 tab 04/11/22 04/21/22 Rx XL] Ranolazine [Ranexa] 500 mg PO Q12HR 30 Days #60 tab 04/11/22 04/21/22 Rx Omeprazole 20 mg PO DAILY #30 tab 04/30/22 Rx ceFAZolin [Kefzol] 2 gm IVP Q8HR #105 each 04/30/22 Rx metroNIDAZOLE [Flagyl] 500 mg PO TID #90 tab 04/30/22 Rx Allergies Allergy/AdvReac Type Severity Reaction Status Date / Time No Known Allergies Allergy Verified 04/21/22 14:43 Physical Exam Vitals: Vital Signs Temp Pulse Resp BP Pulse Ox 04/22/22 08:33 100 04/22/22 07:29 64 16 122/57 100 04/22/22 06:52 98.2 F 70 16 110/58 100 04/22/22 03:03 72 16 134/59 100 04/22/22 01:28 98.8 F 87 18 150/60 98 04/21/22 21:23 98.5 F 67 16 107/46 100 04/21/22 18:55 97.7 F 04/21/22 18:36 75 18 114/55 100 04/21/22 15:04 77 18 110/72 98 04/21/22 13:32 89 16 100 04/21/22 13:19 100.2 F H 97 24 161/74 84 L Intake and Output 04/21/22 04/22/22 04/22/22 22:59 06:59 14:59 Intake Total 99.555 Balance 99.555 Intake: Intake, IV Titration 99.555 Amount Heparin Sod,Pork in 0.45% 99.555 NaCl 25,000 unit In 0.45 % NaCl 1 250ml.bag @ 12 UNITS/KG/HR 9.906 mls/hr IV .Q24H [facility] Rx#: [id number] GENERAL DESCRIPTION: Elderly male lying in bed, no distress. No tachypnea or accessory muscle of respiration use. HEENT: Shows Pallor , no scleral icterus. Oral mucous membrane is dry. No pharyngeal erythema or thrush NECK: Trachea central, no thyromegaly. LUNGS: Unlabored breathing. Clear to auscultation anteriorly. No wheeze or crackle. HEART: S1, S2, regular rate and rhythm. No loud murmur ABDOMEN: Soft, no tenderness , guarding or rigidity, no organomegaly EXTREMITIES: Right foot plantar wound with infected callus did have some purulent drainage was cultured left foot wound seems superficial with no surrounding redness or drainage SKIN: No rash, no masses palpable. NEUROLOGICAL: The patient is awake, alert, oriented x3, mood and affect normal. Results CBC & Chem 7: 04/30/22 07:11 04/30/22 07:11 Labs: Abnormal Lab Results - Last 24 Hours (Table) 04/21/22 04/21/22 04/21/22 Range/Units 13:32 13:32 13:32 RBC 4.03 L (4.30-5.90) m/uL Hgb 11.3 L (13.0-17.5) gm/dL Hct 36.0 L (39.0-53.0) % RDW 16.7 H (11.5-15.5) % Lymphocytes # 0.2 L (1.0-4.8) k/uL PT 13.1 H (9.0-12.0) sec INR 1.3 H (<1.2) APTT (22.0-30.0) sec D-Dimer 5.13 H (<0.60) mg/L FEU Sodium 136 L (137-145) mmol/L Carbon Dioxide 16 L (22-30) mmol/L BUN 34 H (9-20) mg/dL Glucose 244 H (74-99) mg/dL Calcium 8.2 L (8.4-10.2) mg/dL Troponin I (0.000-0.034) ng/mL Albumin 3.1 L (3.5-5.0) g/dL 04/21/22 04/21/22 04/22/22 Range/Units 13:32 20:30 00:17 RBC (4.30-5.90) m/uL Hgb (13.0-17.5) gm/dL Hct (39.0-53.0) % RDW (11.5-15.5) % Lymphocytes # (1.0-4.8) k/uL PT (9.0-12.0) sec INR (<1.2) APTT (22.0-30.0) sec D-Dimer (<0.60) mg/L FEU Sodium (137-145) mmol/L Carbon Dioxide (22-30) mmol/L BUN (9-20) mg/dL Glucose (74-99) mg/dL Calcium (8.4-10.2) mg/dL Troponin I 2.300 H* 17.300 H* 20.900 H* (0.000-0.034) ng/mL Albumin (3.5-5.0) g/dL 04/22/22 Range/Units 05:59 RBC (4.30-5.90) m/uL Hgb (13.0-17.5) gm/dL Hct (39.0-53.0) % RDW (11.5-15.5) % Lymphocytes # (1.0-4.8) k/uL PT (9.0-12.0) sec INR (<1.2) APTT 35.5 H (22.0-30.0) sec D-Dimer (<0.60) mg/L FEU Sodium (137-145) mmol/L Carbon Dioxide (22-30) mmol/L BUN (9-20) mg/dL Glucose (74-99) mg/dL Calcium (8.4-10.2) mg/dL Troponin I (0.000-0.034) ng/mL Albumin (3.5-5.0) g/dL Microbiology - Last 24 Hours (Table) 04/21/22 13:47 Blood Culture - Final Blood Assessment and Plan (1) Bacteremia Status: Acute Code(s): R78.81 - BACTEREMIA SNOMED Code(s): 7245518 (2) Diabetic foot ulcer Status: Acute Code(s): E11.621 - TYPE 2 DIABETES MELLITUS WITH FOOT ULCER; L97.509 - NON-PRESSURE CHRONIC ULCER OTH PRT UNSP FOOT W UNSP SEVERITY SNOMED Code(s): 927754540 Plan: 1patient with gram-positive bacteremia source likely right diabetic foot infection as the patient did have a callus on the plantar aspect of the right foot and there was some purulent drainage which has been cultured. 2we will obtain x-rays of the right foot and check inflammatory markers. 3vancomycin pharmacy to dose with a target trough of 15 while watching kidney function and Vanco trough closely.. 4dry protective dressing to the wound change daily. We will follow on clinical condition and cultures to further adjust medication if needed Thank you for this consultation we will follow the patient along with you Time with Patient: Greater than 30
[2022-04-23 06:27] LABS: Glucose,Whole Blood 137 mg/dL (70-110)
--- NOTE | 2022-04-23 08:25 | P.PN ---
Subjective Progress Note Date: 04/30/22 Principal diagnosis: Angina yesterday. This is a continue progress on a 68-year-old white male who recently had RCA stent several weeks ago. He had other lesions which have now probably caused and had significant chest pain and angina. The patient is resting comfortably and scheduled to have repeat cardiac catheterization today. Objective - Vital Signs Vital signs: Vital Signs Temp 98.2 F 04/23/22 08:00 Pulse 79 04/23/22 08:00 Resp 12 04/23/22 08:00 BP 96/47 04/23/22 08:00 Pulse Ox 96 04/23/22 08:00 FiO2 Intake & Output 04/22/22 04/23/22 04/23/22 18:59 06:59 18:59 Intake Total 189.295 Balance 189.295 Weight 82.554 kg Intake: Intake, IV Titration 189.295 Amount Heparin Sod,Pork in 0.45% 189.295 NaCl 25,000 unit In 0.45 % NaCl 1 250ml.bag @ 12 UNITS/KG/HR 9.906 mls/hr IV .Q24H [facility] Rx#: [id number] Other: Voiding Method Toilet Toilet Urinal Urinal Diaper # Voids 1 - Constitutional General appearance: Present: average body habitus - EENT Eyes: Absent: abnormal pupil - Neck Neck: Absent: lymphadenopathy - Respiratory Respiratory: bilateral: diminished - Cardiovascular Rhythm: regular Heart sounds: normal: S1, S2 Abnormal Heart Sounds: Absent: S3 Gallop - Gastrointestinal General gastrointestinal: Present: soft. Absent: tenderness - Labs CBC & Chem 7: 04/21/22 13:32 04/21/22 13:32 Labs: Abnormal Lab Results - Last 24 Hours (Table) 04/21/22 04/22/22 04/22/22 Range/Units 13:32 15:12 22:25 APTT 72.2 H 50.2 H (22.0-30.0) sec POC Glucose (mg/dL) (70-110) mg/dL HDL Cholesterol 37.70 L (40.00-60.00) mg/dL 04/23/22 Range/Units 06:25 APTT (22.0-30.0) sec POC Glucose (mg/dL) 137 H (70-110) mg/dL HDL Cholesterol (40.00-60.00) mg/dL Microbiology - Last 24 Hours (Table) 04/22/22 14:00 Gram Stain - Preliminary Foot - Right Wound Culture - Preliminary 04/21/22 13:47 Blood Culture Gram Stain - Preliminary Blood Blood Culture - Preliminary Staphylococcus aureus 04/21/22 13:47 Blood Culture - Final Blood Assessment and Plan (1) NSTEMI (non-ST elevated myocardial infarction) Current Visit: Yes Status: Acute Code(s): I21.4 - NON-ST ELEVATION (NSTEMI) MYOCARDIAL INFARCTION SNOMED Code(s): 68203345 (2) Angina at rest Current Visit: No Status: Acute Code(s): I20.8 - OTHER FORMS OF ANGINA PECTORIS SNOMED Code(s): 012383107 (3) CAD (coronary artery disease) Current Visit: No Status: Acute Code(s): I25.10 - ATHSCL HEART DISEASE OF [place] CORONARY ARTERY W/O ANG PCTRS SNOMED Code(s): 90898340 (4) Chest pain Current Visit: No Status: Acute Code(s): R07.9 - CHEST PAIN, UNSPECIFIED SNOMED Code(s): 03267252 Plan: Await and appreciate cardiology input. Continue current regimen or treatment. Await cardiac catheterization.
[2022-04-23] MEDS: RANOLAZINE 500 MG TAB.ER.12H PO SCH ×2 (08:33→20:27)
[2022-04-23] MEDS: ISOSORBIDE MONONITRATE ER 30 MG TAB.ER.24H PO SCH (08:33)
[2022-04-23] MEDS: ASPIRIN 325 MG TAB PO SCH (08:34)
[2022-04-23] MEDS: MULTIVITAMINS, THERA 1 EACH TAB PO SCH (08:34)
[2022-04-23] MEDS: METOPROLOL SUCCINATE (ER) 25 MG TAB.ER.24H PO SCH (08:34)
[2022-04-23] MEDS: CHOLECALCIFEROL 25 MCG (1000 IU) TABLET PO SCH (08:34)
[2022-04-23] MEDS: FERROUS SULFATE 325 MG TAB PO SCH (08:34)
[2022-04-23 11:50] LABS: Glucose,Whole Blood 274 mg/dL (70-110)
[2022-04-23] MEDS: PIOGLITAZONE 30 MG TAB PO SCH (12:41)
--- NOTE | 2022-04-23 14:07 | P.PN ---
Subjective Progress Note Date: 04/23/22 History of present illness: This is a 76-year-old male with past medical history significant for peripheral vascular disease, known carotid occlusion follows with Dr. Lawrence, Dm type 2, hypertension, hyperlipidemia, chronic foot wounds. Patient has been recently established with Dr. Bedoya after he presented to the hospital for an outpatient Lexiscan stress test on April 08. Due to his symptoms, it was decided the patient would undergo cardiac catheterization instead of stress test. He was found to have critical disease in the mid RCA, severe disease in the proximal left circumflex status post PTCA ballooning of the right coronary artery . No stent was placed at that time as patient's hemoglobin came back at 5.6 and workup was done for anemia. Echocardiogram at that time revealed normal b iventricular dimension and systolic function. Moderate aortic stenosis with mean gradient of 20 mmHg. Mild mitral regurgitation. Patient presented to the hospital due to chest pain and shortness of breath along with chills and rigors. Chest pain has resolved. Patient is seen today in the emergency center waiting for a bed on the cardiac stepdown unit. Patient has been started on a heparin drip. EKG sinus rhythm with nonspecific T-wave inversions WBC 4.9, hemoglobin 11.3, platelet count 195. D-dimer 5.13. Sodium 136, potassium 4.7, BUN 34 and creatinine 1.2 to. Troponin 2.3, 17.3, 20.9. ProBNP 4310. Influenza A, influenza B, RSV, Covid not detected. Blood culture gram- positive cocci in clusters. Chest x-ray reveals right lower lobe infiltrate. Correlate for pneumonia, atelectasis or atypical pneumonia. Some mild increased lung markings that may correlate with atypical pneumonia or pulmonary edema. CTA of the chest revealed nearly nondiagnostic due to heavy breathing motion. Borderline heart size, pulmonary artery hypertension, small bilateral pleural effusions, diffuse septal lines and groundglass change. Correlate for heart failure and developing pulmonary edema. Redemonstrated left common carotid artery occlusion. Background COPD with mild emphysema. 5.1 cm hypodense lesion mid liver. Home cardiac medications: Aspirin 325 mg daily, Lipitor 40 mg daily, Imdur 30 mg daily, lisinopril 5 mg daily, Toprol-XL 25 mg daily, Ranexa 500 mg every 12 hours 04/23 Patient has been seen by infectious disease and blood culture positive for staph aureus, possibly related to lower extremity wounds. Patient denies having any chest pain at this time and no shortness of breath. We will plan to continue oral nitrate and heparin drip over the weekend and wait for cultures to finalize and continue IV antibiotics managed by infectious disease. Plan will be to schedule patient for cardiac catheterization on Tuesday with Dr. Bedoya. Patient has been afebrile, heart rate in the 60s to 80s, blood pressure 109/51, pulse ox 100% on room air. Repeat BUN 1.25. Physical examination: Gen: This is a 76-year-old male. He is resting in a recliner and appears to be comfortable and in no acute distress. VS: reviewed HEENT: Head is atraumatic, normocephalic. Pupils equal, round. Sclerae is anicteric. NECK: Supple. No JVD. LUNGS: Clear to auscultation. No wheezes or rhonchi. No intercostal retractions. HEART: Regular rate and rhythm. 2/6 systolic murmur right sternal border. ABDOMEN: Soft. No masses. No tenderness. EXTREMITIES: No pedal edema. No calf tenderness. NEUROLOGICAL: Patient is awake, alert and oriented x3. Assessment: Non-ST elevated myocardial infarction with known critical disease in the mid RCA, severe disease in the proximal left circumflex status post PTCA ballooning of the right coronary artery Chronic anemia Positive blood culture Chronic wounds lower extremities Hypertension Hyperlipidemia Carotid artery stenosis Diabetes mellitus type 2 Peripheral vascular disease Plan: Hold lisinopril low blood pressure and discontinue Nitropaste Continue patient on oral nitrate Continue heparin drip Await results of blood cultures, IV antibiotics as managed by infectious disease Patient will require repeat cardiac catheterization and possible stent placement as he now has stable hemoglobin but bacteremia will need to be treated. Dr. Bedoya will be the canoe inspector performing cardiac catheterization probably on Tuesday. Recommend continuing patient on aspirin 81 mg daily, Lipitor 40 mg daily, Imdur 30 mg daily, Toprol-XL 25 mg daily, Ranexa 500 mg every 12 hours Further recommendations to follow based upon clinical course Thank you kindly for this consultation. Nurse practitioner note has been reviewed, I agree with documented findings and plan of care. Patient was seen and examined. Objective - Vital Signs Vital signs: Vital Signs Temp 98.2 F 04/23/22 08:00 Pulse 79 04/23/22 08:00 Resp 12 04/23/22 08:00 BP 96/47 04/23/22 08:00 Pulse Ox 96 04/23/22 08:00 FiO2 Intake & Output 04/22/22 04/23/22 04/23/22 18:59 06:59 18:59 Intake Total 189.295 Balance 189.295 Weight 82.554 kg Intake: Intake, IV Titration 189.295 Amount Heparin Sod,Pork in 0.45% 189.295 NaCl 25,000 unit In 0.45 % NaCl 1 250ml.bag @ 12 UNITS/KG/HR 9.906 mls/hr IV .Q24H [facility] Rx#: [id number] Other: Voiding Method Toilet Toilet Urinal Urinal Diaper # Voids 1 - Labs CBC & Chem 7: 04/21/22 13:32 04/23/22 07:32 Labs: Abnormal Lab Results - Last 24 Hours (Table) 04/21/22 04/22/22 04/22/22 Range/Units 13:32 15:12 22:25 APTT 72.2 H 50.2 H (22.0-30.0) sec POC Glucose (mg/dL) (70-110) mg/dL HDL Cholesterol 37.70 L (40.00-60.00) mg/dL 04/23/22 Range/Units 06:25 APTT (22.0-30.0) sec POC Glucose (mg/dL) 137 H (70-110) mg/dL HDL Cholesterol (40.00-60.00) mg/dL Microbiology - Last 24 Hours (Table) 04/22/22 14:00 Gram Stain - Preliminary Foot - Right Wound Culture - Preliminary 04/21/22 13:47 Blood Culture Gram Stain - Preliminary Blood Blood Culture - Preliminary Staphylococcus aureus 04/21/22 13:47 Blood Culture - Final Blood
[2022-04-23] MEDS ORDERED: NITROGLYCERIN OINT 1 INCH/GM PACKET TOPICAL SCH (16:00)
--- NOTE | 2022-04-23 16:29 | CDI ---
Documentation Clarification Form Date: 04/23/2022 4:04:58 PM From: Isabel Covarrubias RN CCDS Admit Date: 04/21/2022 8:11:00 PM Patient Name: Ayo Turner Visit Number: [id number] Discharge Date: ATTENTION: The Clinical Documentation Specialists (CDI) and [facility] Coding Staff appreciate your assistance in clarifying documentation. Please respond to the clarification below the line at the bottom and electronically sign. The CDI & [facility] Coding staff will review the response and follow-up if needed. Please note: Queries are made part of the Legal Health Record. If you have any questions, please contact the author of this message via ITS. Dr. Michael Lopez Your patient has the documented diagnosis of unspecified CHF 04/22, H&P. Additional information regarding the type, acuity of CHF is requested. History/Risk Factors: 76-year-old male presents to the ED via EMS with chest pain and shortness of breath. Medical History: CAD, DM, HLD, HTN, CHF. 04/22, H&P. Clinical Indicators: VS/Pulse OX: 04/21 B/P 161/74; HR 97; Temp 100.2 F Oral; RR 24; SpO2 84% room air BNP: 4310 Echocardiogram Results:04/09/2022 EF 55% mild right ventricular dilatation. Mild pulmonary hypertension. Moderate aortic stenosis . Mild mitral regurgitation. Chest X Ray, 04/21: Right lower lobe infiltrate. Some milder increased lung markings are present in the remaining portions of the lung villa. Treatment: 04/21 Lasix 40mg IV x 1; 04/22 Toprol XL 25mg PO Daily. In your professional opinion, can you please clarify the acuity and type of CHF if known? [ x] Chronic Diastolic Heart Failure (preserved EF) [ ] Acute on Chronic Diastolic Heart Failure (preserved EF) [ ] Other, please specify [ ] Unable to determine (Template Last Revised: May 2020) MTDD
--- NOTE | 2022-04-23 16:45 | CDI ---
Documentation Clarification Form Date: 04/23/2022 4:30:39 PM From: Isabel Covarrubias RN CCDS Admit Date: 04/21/2022 8:11:00 PM Patient Name: Ayo Turner Visit Number: [id number] Discharge Date: ATTENTION: The Clinical Documentation Specialists (CDI) and [facility] Coding Staff appreciate your assistance in clarifying documentation. Please respond to the clarification below the line at the bottom and electronically sign. The CDI & [facility] Coding staff will review the response and follow-up if needed. Please note: Queries are made part of the Legal Health Record. If you have any questions, please contact the author of this message via ITS. Dr. Michael Lopez Your patient has decreased breath sounds, documented ED note, 04/21. Based on this information and the findings below, is there an additional diagnosis that is clinically appropriate for this patient? History/Risk Factors: 76-year-old male presents to the ED via EMS with chest pain and shortness of breath. Medical History: CAD, DM, HLD, HTN, CHF. 04/22, H&P. Tobacco use: Former Clinical Indicators: Vital signs: 04/21 13:19 B/P 161/74; HR 97; SpO2 100.2 F Oral; RR 24; SpO2 84% room air Pulse oximetry: 04/21 13:32 RR 16; SpO2 100% Nonrebreather 15L 04/21 15:04 RR 18; SpO2 98% 6L nasal cannula 04/21 18:36 RR 18; SpO2 100% 4L nasal cannula 04/22 08:55 RR 16; SpO2 100% 2L nasal cannula 04/22 17:37 RR 16; SpO2 98% room air Lung/Breathing assessment: 04/21, ED note: decreased breath sounds, other (Bibasilar crepitus) Treatment: Lasix IV x 1 Oxygen via Nonrebreather 15L and nasal cannula 2 -6L Is there an additional diagnosis that is clinically appropriate for this patient? [ ] Acute Hypoxic Respiratory Failure (pO2 <60 mm Hg or SpO2 <91% on room air) [ ] Other Diagnosis, please specify [ x ] Unable to determine (Template Last Revised: June 2020) MTDD
[2022-04-23 16:52] LABS: Glucose,Whole Blood 191 mg/dL (70-110)
[2022-04-23] MEDS: HEPARIN SOD,PORK IN 0.45% NACL 25,000 UNIT in 0.45% NACL 1 250ML.BAG IV SCH (17:05)
[2022-04-23 19:54] LABS: Glucose,Whole Blood 209 mg/dL (70-110)
[2022-04-23] MEDS ORDERED: DEXTROSE 50% SYRINGE 50 ML IVP PRN ×2 (20:21)
[2022-04-23] MEDS: ATORVASTATIN 40 MG TAB PO SCH (20:27)
[2022-04-23] MEDS: INSULIN ASPART (NovoLOG) 100 UNIT/ML VIAL SQ SCH (20:27)
--- NOTE | 2022-04-23 21:08 | P.PN ---
Subjective Progress Note Date: 04/23/22 Principal diagnosis: MSSA bacteremia and right diabetic foot ulcer Patient is a 76-year-old male with multiple comorbidities presented to the hospital with some chest pain and shortness of breath patient also found to MSSA bacteremia and infected callus on the plantar aspect of the right foot with some purulent drainage. On today's evaluation that is 04/23/2022, the patient denies having any fever or chills, patient is breathing more comfortably denies any chest pain or cough no nausea no vomiting no abdominal pain or pain to the right foot wound area Objective - Vital Signs Vital signs: Vital Signs Temp 98.0 F 04/23/22 12:00 Pulse 64 04/23/22 12:00 Resp 16 04/23/22 12:00 BP 109/51 04/23/22 12:00 Pulse Ox 100 04/23/22 12:00 FiO2 Intake & Output 04/22/22 04/23/22 04/23/22 18:59 06:59 18:59 Intake Total 189.295 Balance 189.295 Weight 82.554 kg Intake: Intake, IV Titration 189.295 Amount Heparin Sod,Pork in 0.45% 189.295 NaCl 25,000 unit In 0.45 % NaCl 1 250ml.bag @ 12 UNITS/KG/HR 9.906 mls/hr IV .Q24H [facility] Rx#: [id number] Other: Voiding Method Toilet Toilet Toilet Urinal Urinal Urinal Diaper # Voids 1 - Exam GENERAL DESCRIPTION: An elderly male up in the chair in no distress RESPIRATORY SYSTEM: Unlabored breathing , decreased breath sounds at bases HEART: S1 S2 regular rate and rhythm , ABDOMEN: Soft , no tenderness EXTREMITIES: Right foot wound is currently dressed - Labs CBC & Chem 7: 04/21/22 13:32 04/23/22 07:32 Labs: Abnormal Lab Results - Last 24 Hours (Table) 04/21/22 04/22/22 04/22/22 Range/Units 13:32 15:12 22:25 APTT 72.2 H 50.2 H (22.0-30.0) sec POC Glucose (mg/dL) (70-110) mg/dL HDL Cholesterol 37.70 L (40.00-60.00) mg/dL 04/23/22 04/23/22 Range/Units 06:25 11:48 APTT (22.0-30.0) sec POC Glucose (mg/dL) 137 H 274 H (70-110) mg/dL HDL Cholesterol (40.00-60.00) mg/dL Microbiology - Last 24 Hours (Table) 04/22/22 14:00 Gram Stain - Preliminary Foot - Right Wound Culture - Preliminary 04/21/22 13:47 Blood Culture Gram Stain - Preliminary Blood Blood Culture - Preliminary Staphylococcus aureus 04/21/22 13:47 Blood Culture - Final Blood Assessment and Plan (1) Bacteremia Current Visit: Yes Status: Acute Code(s): R78.81 - BACTEREMIA SNOMED Code(s): 9474711 (2) Diabetic foot ulcer Current Visit: Yes Status: Acute Code(s): E11.621 - TYPE 2 DIABETES MELLITUS WITH FOOT ULCER; L97.509 - NON-PRESSURE CHRONIC ULCER OTH PRT UNSP FOOT W UNSP SEVERITY SNOMED Code(s): 852965224 Plan: 1patient with MSSA bacteremia source likely right diabetic foot infection as the patient did have a callus on the plantar aspect of the right foot and there was some purulent drainage which has been cultured and currently pending. 2x-rays of the right foot did not show any acute abnormality and inflammatory markers are currently pending. 3 patient continues cefazolin 2 g every 8 hours 4 vascular surgery evaluation for possible debridement of the infected callus and deep culture
--- NOTE | 2022-04-23 21:33 | CONS ---
CONSULTATION HISTORY OF PRESENT ILLNESS: A 76-year-old gentleman, known to me from the past, who has been following me in the office. The patient came with a history of chest pain and shortness of breath. The patient has a history of hypertension and diabetes mellitus. No fever or chills. Blood culture came positive for cocci, gram-positive. The patient has a callus on the plantar aspect of the left foot. No discharge or redness noted. The patient does have some tenderness on the plantar aspect of the right foot. X-ray of foot showed no osteo. There is a tenderness noted and mild redness noted on the plantar aspect of the foot. The patient has a history of coronary artery disease. The patient is scheduled to have a heart catheterization. The patient also has hypertension and diabetes mellitus. X- ray showed right lower lobe pneumonia. PHYSICAL EXAMINATION: NECK: Supple. Trachea central. CHEST: Few crackles at the lung bases. HEART: First and second sounds present. ABDOMEN: Soft and nontender. EXTREMITIES: Femorals are 1+ bilaterally. The patient had mild redness and tenderness on the plantar aspect of the right foot, and there is an open callus wound on the plantar aspect which is nontender, no discharge noted. ASSESSMENT AND PLAN: The patient is on IV antibiotic under the care of Infectious Disease. There is a possibility of some infection going on, on the plantar aspect of the right foot. Under local anesthesia at the bedside, we will make a small incision and take some culture, and we will use Medihoney gel to the left foot ulcer. Follow with you. MMAMANDAL / IJN: [id number] /
[2022-04-23] MEDS: SODIUM CHLORIDE 0.9% 1,000 ML IV SCH (23:16)
[2022-04-24 06:10] LABS: Glucose,Whole Blood 135 mg/dL (70-110)
[2022-04-24] MEDS: INSULIN ASPART (NovoLOG) 100 UNIT/ML VIAL SQ SCH ×4 (06:11→21:40)
[2022-04-24] MEDS ORDERED: LIDOCAINE 1% INJ 10MG/ML (30 ML VIAL-PF) SQ ONE (09:30)
[2022-04-24] MEDS: RANOLAZINE 500 MG TAB.ER.12H PO SCH ×2 (10:14→21:40)
[2022-04-24] MEDS: CHOLECALCIFEROL 25 MCG (1000 IU) TABLET PO SCH (10:14)
[2022-04-24] MEDS: MULTIVITAMINS, THERA 1 EACH TAB PO SCH (10:14)
[2022-04-24] MEDS: PIOGLITAZONE 30 MG TAB PO SCH (10:15)
[2022-04-24] MEDS: ISOSORBIDE MONONITRATE ER 30 MG TAB.ER.24H PO SCH (10:15)
[2022-04-24] MEDS: ASPIRIN 81 MG PO SCH (10:15)
[2022-04-24] MEDS: METOPROLOL SUCCINATE (ER) 25 MG TAB.ER.24H PO SCH (10:15)
--- NOTE | 2022-04-24 10:15 | OP ---
OPERATIVE REPORT PREOPERATIVE DIAGNOSIS: Infected callus, right foot. POSTOPERATIVE DIAGNOSIS: Infected callus, right foot. Measurement is 1 x 0.5 x 0.5 cm. This patient has history of callus on the left foot and also noticed to have a callus on the plantar aspect of the right foot. The patient has tenderness noted on the plantar aspect and blood culture was positive. Right foot was prepped and draped in appropriate sterile manner. 1% lidocaine plain infiltrated. An elliptical incision was made on the plantar aspect of the foot, deepened to skin and fat and deep fascia. The callus and deep tissue were excised with sharp knife, which was sent for deep culture. No active bleeding was noted. The wound was irrigated with saline. The Medihoney gel was applied to the wound. The patient has a callus on the plantar aspect which is nontender. We have been using Medihoney gel for that left foot also. Dressing applied. The patient tolerated the procedure well. The patient was sent for deep culture. Plan is to change the dressing daily with Medihoney gel. MMODL / IJN: [id number] /
[2022-04-24 11:36] LABS: Glucose,Whole Blood 183 mg/dL (70-110)
--- NOTE | 2022-04-24 13:25 | P.PN ---
Subjective Progress Note Date: 04/24/22 The patient is a 76-year-old male who is currently admitted to the hospital with non-ST elevated myocardial infarction. He underwent coronary angiogram in late March where he underwent balloon angioplasty of his RCA lesion, however mid case he was found to have a hemoglobin of 5 and therefore procedure was aborted. He came back to the hospital with unstable angina. During this admission he was found to have positive blood cultures, likely stemming from foot wounds. He is currently being treated with antibiotics and being followed by wound care. Overnight the patient states he's done well. No more angina since starting oral nitrates. No difficulty breathing. GENERAL: Well-appearing, well-nourished and in no acute distress. NECK: Supple without JVD or thyromegaly. LUNGS: Breath sounds clear to auscultation bilaterally. Respiration equal and unlabored. No wheezes, rales or rhonchi. HEART: Regular rate and rhythm. Systolic ejection murmur. No rubs or gallops. S1 and S2 heard. EXTREMITIES: Normal range of motion. Bilateral lower extremity foot dressings. 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 Bedoya Further recommendations to be based upon clinical course I am dictating on behalf of Dr John Jimenez's history/physical and assessment/plan. Objective - Vital Signs Vital signs: Vital Signs Temp 97.9 F 04/24/22 12:41 Pulse 66 04/24/22 12:41 Resp 16 04/24/22 12:41 BP 116/54 04/24/22 12:41 Pulse Ox 100 04/24/22 12:41 FiO2 Intake & Output 04/23/22 04/24/22 04/24/22 18:59 06:59 18:59 Intake Total 241.541 118 Balance 241.541 118 Weight 84.3 kg Intake: Intake, IV Titration 241.541 Amount Heparin Sod,Pork in 0.45% 241.541 NaCl 25,000 unit In 0.45 % NaCl 1 250ml.bag @ 12 UNITS/KG/HR 9.906 mls/hr IV .Q24H [facility] Rx#: [id number] Oral 118 Other: Voiding Method Toilet Toilet Toilet Urinal Urinal Urinal # Voids 2 - Labs CBC & Chem 7: 04/21/22 13:32 04/23/22 07:32 Labs: Abnormal Lab Results - Last 24 Hours (Table) 04/23/22 04/23/22 04/23/22 Range/Units 16:51 19:52 22:45 ESR (0-15) mm/hr APTT 48.7 H (22.0-30.0) sec POC Glucose (mg/dL) 191 H 209 H (70-110) mg/dL C-Reactive Protein (<1.0) mg/dL 04/24/22 04/24/22 04/24/22 Range/Units 06:09 10:08 10:08 ESR 106 H (0-15) mm/hr APTT (22.0-30.0) sec POC Glucose (mg/dL) 135 H (70-110) mg/dL C-Reactive Protein 4.9 H (<1.0) mg/dL 04/24/22 Range/Units 11:35 ESR (0-15) mm/hr APTT (22.0-30.0) sec POC Glucose (mg/dL) 183 H (70-110) mg/dL C-Reactive Protein (<1.0) mg/dL Microbiology - Last 24 Hours (Table) 04/22/22 10:26 Blood Culture - Preliminary Blood No Growth after 48 hours 04/22/22 14:00 Gram Stain - Preliminary Foot - Right Wound Culture - Preliminary
--- NOTE | 2022-04-24 14:22 | P.PN ---
Subjective Progress Note Date: 04/24/22 Principal diagnosis: MSSA bacteremia and right diabetic foot ulcer Patient is a 76-year-old male with multiple comorbidities presented to the hospital with some chest pain and shortness of breath patient also found to MSSA bacteremia and infected callus on the plantar aspect of the right foot with some purulent drainage. The patient did have bedside debridement of the right foot infected callus completed on 04/24/2022 On today's evaluation that is 04/24/2022, the patient remains to be afebrile, patient is breathing comfortably on room air, the patient denies any chest pain or cough no nausea no vomiting no abdominal pain or pain to the right foot wound area Objective - Vital Signs Vital signs: Vital Signs Temp 97.9 F 04/24/22 12:41 Pulse 66 04/24/22 12:41 Resp 16 04/24/22 12:41 BP 116/54 04/24/22 12:41 Pulse Ox 100 04/24/22 12:41 FiO2 Intake & Output 04/23/22 04/24/22 04/24/22 18:59 06:59 18:59 Intake Total 241.541 354 Balance 241.541 354 Weight 84.3 kg Intake: Intake, IV Titration 241.541 Amount Heparin Sod,Pork in 0.45% 241.541 NaCl 25,000 unit In 0.45 % NaCl 1 250ml.bag @ 12 UNITS/KG/HR 9.906 mls/hr IV .Q24H [facility] Rx#: [id number] Oral 354 Other: Voiding Method Toilet Toilet Toilet Urinal Urinal Urinal # Voids 2 1 - Exam GENERAL DESCRIPTION: An elderly male up in the chair in no distress RESPIRATORY SYSTEM: Unlabored breathing , decreased breath sounds at bases HEART: S1 S2 regular rate and rhythm , ABDOMEN: Soft , no tenderness EXTREMITIES: Right foot wound is currently dressed, no drainage and the dressing - Labs CBC & Chem 7: 04/21/22 13:32 04/23/22 07:32 Labs: Abnormal Lab Results - Last 24 Hours (Table) 04/23/22 04/23/22 04/23/22 Range/Units 16:51 19:52 22:45 ESR (0-15) mm/hr APTT 48.7 H (22.0-30.0) sec POC Glucose (mg/dL) 191 H 209 H (70-110) mg/dL C-Reactive Protein (<1.0) mg/dL 04/24/22 04/24/22 04/24/22 Range/Units 06:09 10:08 10:08 ESR 106 H (0-15) mm/hr APTT (22.0-30.0) sec POC Glucose (mg/dL) 135 H (70-110) mg/dL C-Reactive Protein 4.9 H (<1.0) mg/dL 04/24/22 Range/Units 11:35 ESR (0-15) mm/hr APTT (22.0-30.0) sec POC Glucose (mg/dL) 183 H (70-110) mg/dL C-Reactive Protein (<1.0) mg/dL Microbiology - Last 24 Hours (Table) 04/22/22 10:26 Blood Culture - Preliminary Blood No Growth after 48 hours 04/22/22 14:00 Gram Stain - Preliminary Foot - Right Wound Culture - Preliminary Assessment and Plan (1) Bacteremia Current Visit: Yes Status: Acute Code(s): R78.81 - BACTEREMIA SNOMED Code(s): 3119944 (2) Diabetic foot ulcer Current Visit: Yes Status: Acute Code(s): E11.621 - TYPE 2 DIABETES MELLITUS WITH FOOT ULCER; L97.509 - NON-PRESSURE CHRONIC ULCER OTH PRT UNSP FOOT W UNSP SEVERITY SNOMED Code(s): 262001958 Plan: 1patient with MSSA bacteremia source likely right diabetic foot infection as the patient did have a callus on the plantar aspect of the right foot and there was some purulent drainage which has been cultured and currently pending. 2x-rays of the right foot did not show any acute abnormality and inflammatory markers are elevated with a sed rate of 106 CRP of 4.9. 3 patient has been evaluated by vascular surgery and is status post debridement of the infected callus and deep culture which are currently pending 4patient to continue with cefazolin and monitor clinical course closely Time with Patient: Less than 30
[2022-04-24 16:35] LABS: Glucose,Whole Blood 140 mg/dL (70-110)
--- NOTE | 2022-04-24 17:12 | P.PN ---
Subjective Progress Note Date: 04/24/22 76-year-old male with past medical history significant for peripheral vascular disease, known carotid occlusion follows with Dr. Lawrence, Dm type 2, hypertension, hyperlipidemia, chronic foot wounds. Patient has been recently established with Dr. Bedoya after he presented to the hospital for an outpatient Lexiscan stress test on April 08. Due to his symptoms, it was decided the patient would undergo cardiac catheterization instead of stress test. He was found to have critical disease in the mid RCA, severe disease in the proximal left circumflex status post PTCA ballooning of the right coronary artery . No stent was placed at that time as patient's hemoglobin came back at 5.6 and workup was done for anemia. Echocardiogram at that time revealed normal biventricular dimension and systolic function. Moderate aortic stenosis with mean gradient of 20 mmHg. Mild mitral regurgitation. Patient presented to the hospital due to chest pain and shortness of breath along with chills and rigors. Chest pain has resolved. Patient is seen today in the emergency center waiting for a bed on the cardiac stepdown unit. Patient has been started on a heparin drip. EKG sinus rhythm with nonspecific T-wave inversions WBC 4.9, hemoglobin 11.3, platelet count 195. D-dimer 5.13. Sodium 136, potassium 4.7, BUN 34 and creatinine 1.2 to. Troponin 2.3, 17.3, 20.9. ProBNP 4310. Influenza A, influenza B, RSV, Covid not detected. Blood culture gram- positive cocci in clusters. Chest x-ray reveals right lower lobe infiltrate. Correlate for pneumonia, atelectasis or atypical pneumonia. Some mild increased lung markings that may correlate with atypical pneumonia or pulmonary edema. CTA of the chest revealed nearly nondiagnostic due to heavy breathing motion. Borderline heart size, pulmonary artery hypertension, small bilateral pleural effusions, diffuse septal lines and groundglass change. Objective - Vital Signs Vital signs: Vital Signs Temp 97.9 F 04/24/22 12:41 Pulse 66 04/24/22 12:41 Resp 16 04/24/22 12:41 BP 116/54 04/24/22 12:41 Pulse Ox 100 04/24/22 12:41 FiO2 Intake & Output 04/23/22 04/24/22 04/24/22 18:59 06:59 18:59 Intake Total 241.541 118 Balance 241.541 118 Weight 84.3 kg Intake: Intake, IV Titration 241.541 Amount Heparin Sod,Pork in 0.45% 241.541 NaCl 25,000 unit In 0.45 % NaCl 1 250ml.bag @ 12 UNITS/KG/HR 9.906 mls/hr IV .Q24H [facility] Rx#: [id number] Oral 118 Other: Voiding Method Toilet Toilet Toilet Urinal Urinal Urinal # Voids 2 - Exam Gen: This is a 76-year-old male. He is resting in a recliner and appears to be comfortable and in no acute distress. VS: reviewed HEENT: Head is atraumatic, normocephalic. Pupils equal, round. Sclerae is anicteric. NECK: Supple. No JVD. LUNGS: Clear to auscultation. No wheezes or rhonchi. No intercostal retractions. HEART: Regular rate and rhythm. 2/6 systolic murmur right sternal border. ABDOMEN: Soft. No masses. No tenderness. EXTREMITIES: No pedal edema. No calf tenderness. NEUROLOGICAL: Patient is awake, alert and oriented x3. - Labs CBC & Chem 7: 04/21/22 13:32 04/23/22 07:32 Labs: Abnormal Lab Results - Last 24 Hours (Table) 04/23/22 04/23/22 04/23/22 Range/Units 16:51 19:52 22:45 ESR (0-15) mm/hr APTT 48.7 H (22.0-30.0) sec POC Glucose (mg/dL) 191 H 209 H (70-110) mg/dL C-Reactive Protein (<1.0) mg/dL 04/24/22 04/24/22 04/24/22 Range/Units 06:09 10:08 10:08 ESR 106 H (0-15) mm/hr APTT (22.0-30.0) sec POC Glucose (mg/dL) 135 H (70-110) mg/dL C-Reactive Protein 4.9 H (<1.0) mg/dL 04/24/22 Range/Units 11:35 ESR (0-15) mm/hr APTT (22.0-30.0) sec POC Glucose (mg/dL) 183 H (70-110) mg/dL C-Reactive Protein (<1.0) mg/dL Microbiology - Last 24 Hours (Table) 04/22/22 14:00 Gram Stain - Preliminary Foot - Right Wound Culture - Preliminary 04/22/22 10:26 Blood Culture - Preliminary Blood No Growth after 24 hours Assessment and Plan Assessment: Non-ST elevated myocardial infarction with known critical disease in the mid RCA, severe disease in the proximal left circumflex status post PTCA ballooning of the right coronary artery Chronic anemia Positive blood culture Chronic wounds lower extremities Hypertension Hyperlipidemia Carotid artery stenosis Diabetes mellitus type 2 Peripheral vascular disease Plan: Hold lisinopril low blood pressure and discontinue Nitropaste Continue patient on oral nitrate Continue heparin drip Await results of blood cultures, IV antibiotics as managed by infectious disease Patient will require repeat cardiac catheterization and possible stent placement as he now has stable hemoglobin but bacteremia will need to be treated. Dr. Bedoya will be the lubrication technician performing cardiac catheterization probably on Tuesday. Recommend continuing patient on aspirin 81 mg daily, Lipitor 40 mg daily, Imdur 30 mg daily, Toprol-XL 25 mg daily, Ranexa 500 mg every 12 hours Further recommendations to follow based upon clinical course Thank you kindly for this consultation.
[2022-04-24] MEDS: HEPARIN SOD,PORK IN 0.45% NACL 25,000 UNIT in 0.45% NACL 1 250ML.BAG IV SCH (17:40)
[2022-04-24 20:29] LABS: Glucose,Whole Blood 196 mg/dL (70-110)
[2022-04-24] MEDS: ATORVASTATIN 40 MG TAB PO SCH (21:40)
[2022-04-25] MEDS ORDERED: HEPARIN SODIUM 1,000 UN/ML (10ML VL) IV PRN (00:01)
[2022-04-25 06:30] LABS: Glucose,Whole Blood 126 mg/dL (70-110)
[2022-04-25] MEDS: INSULIN ASPART (NovoLOG) 100 UNIT/ML VIAL SQ SCH ×4 (06:41→21:46)
[2022-04-25] MEDS: MULTIVITAMINS, THERA 1 EACH TAB PO SCH (08:29)
[2022-04-25] MEDS: RANOLAZINE 500 MG TAB.ER.12H PO SCH ×2 (08:29→20:00)
[2022-04-25] MEDS: ISOSORBIDE MONONITRATE ER 30 MG TAB.ER.24H PO SCH (08:29)
[2022-04-25] MEDS: CHOLECALCIFEROL 25 MCG (1000 IU) TABLET PO SCH (08:29)
[2022-04-25] MEDS: ASPIRIN 81 MG PO SCH (08:29)
[2022-04-25] MEDS: PIOGLITAZONE 30 MG TAB PO SCH (08:29)
[2022-04-25] MEDS: METOPROLOL SUCCINATE (ER) 25 MG TAB.ER.24H PO SCH (08:29)
[2022-04-25] MEDS: SODIUM CHLORIDE 0.9% 1,000 ML IV SCH ×2 (08:32→23:13)
[2022-04-25 09:15] LABS: Calcium 7.8 mg/dL (8.4-10.2); Magnesium 1.7 mg/dL (1.6-2.3)
[2022-04-25 11:16] LABS: Anisocytosis Slight; HCT 22.3 % (39.0-53.0); Hypochromasia Marked; MCH 27.9 pg (25.0-35.0); MCHC 30.9 g/dL (31.0-37.0); MCV 90.3 fL (80.0-100.0); Mean Platelet Volume 8.1; Platelet Count 256 k/uL (150-450); RBC 2.47 m/uL (4.30-5.90); RDW 16.4 % (11.5-15.5); WBC 4.6 k/uL (3.8-10.6)
[2022-04-25 11:22] LABS: HGB 6.9 gm/dL (13.0-17.5)
[2022-04-25 11:50] LABS: Glucose,Whole Blood 176 mg/dL (70-110)
[2022-04-25 12:21] LABS: Anisocytosis Slight; Basophils % (A) 0 %; Eosinophils # (A) 0.1 k/uL (0-0.7); Eosinophils % (A) 2 %; HCT 23.1 % (39.0-53.0); Hypochromasia Marked; Lymphocytes # (A) 0.9 k/uL (1.0-4.8); Lymphocytes % (A) 24 %; MCH 25.1 pg (25.0-35.0); MCHC 27.4 g/dL (31.0-37.0); MCV 91.5 fL (80.0-100.0); Mean Platelet Volume 7.6; Monocytes # (A) 0.3 k/uL (0-1.0); Monocytes % (A) 6 %; Neutrophils # (A) 2.5 k/uL (1.3-7.7); Neutrophils % (A) 65 %; Platelet Count 246 k/uL (150-450); RBC 2.53 m/uL (4.30-5.90); RDW 16.6 % (11.5-15.5); WBC 3.9 k/uL (3.8-10.6)
[2022-04-25 12:25] LABS: HGB 6.3 gm/dL (13.0-17.5)
--- NOTE | 2022-04-25 12:31 | P.PN ---
Subjective Progress Note Date: 04/25/22 The patient is a 76-year-old male who is currently admitted to the hospital with non-ST elevated myocardial infarction. He underwent coronary angiogram in late March where he underwent balloon angioplasty of his RCA lesion, however mid case he was found to have a hemoglobin of 5 and therefore procedure was aborted. He came back to the hospital with unstable angina. During this admission he was found to have positive blood cultures, likely stemming from foot wounds. He is currently being treated with antibiotics and being followed by wound care. Overnight the patient states he's done well. No more angina since starting oral nitrates. No difficulty breathing. He is up ambulating around his room. GENERAL: Well-appearing, well-nourished and in no acute distress. NECK: Supple without JVD or thyromegaly. LUNGS: Breath sounds clear to auscultation bilaterally. Respiration equal and unlabored. No wheezes, rales or rhonchi. HEART: Regular rate and rhythm. Systolic ejection murmur. No rubs or gallops. S1 and S2 heard. EXTREMITIES: Normal range of motion. Bilateral lower extremity foot dressings. VITALS: Blood pressure 108/59, pulse 90, respiratory rate 16, afebrile, SpO2 100% on ro om air TELEMETRY: Sinus rhythm overnight LABS: WBC 3.9, hemoglobin 6.3, hematocrit 23.1, platelet 246, sodium 136, potassium 4.0, BUN 28, creatinine 1.02, magnesium 1.7 IMPRESSION: Non-ST elevated myocardial infarction, peak troponin 20 Positive blood cultures Chronic lower extremity wounds Hypertension Hyperlipidemia Diabetes mellitus Peripheral vascular disease Anemia with acute drop in hemoglobin PLAN: Hold heparin drip Repeat hemoglobin and hematocrit Consider blood transfusion. Deferred to primary team Further recommendations to be based on clinical course I am dictating on behalf of Dr John Jimenez's history/physical and assessment/plan. Objective - Vital Signs Vital signs: Vital Signs Temp 97.8 F 04/25/22 08:00 Pulse 72 04/25/22 12:00 Resp 16 04/25/22 12:00 BP 139/56 04/25/22 12:00 Pulse Ox 100 04/25/22 12:00 FiO2 Intake & Output 04/24/22 04/25/22 04/25/22 18:59 06:59 18:59 Intake Total 715.522 366.309 216.167 Balance 715.522 366.309 216.167 Weight 99 kg Intake: IV 131.92 Heparin Sod,Pork in 0.45% 131.92 NaCl 25,000 unit In 0.45 % NaCl 1 250ml.bag @ 12 UNITS/KG/HR 9.906 mls/hr IV .Q24H [facility] Rx#: [id number] Intake, IV Titration 243.522 234.389 98.167 Amount Heparin Sod,Pork in 0.45% 243.522 64.389 98.167 NaCl 25,000 unit In 0.45 % NaCl 1 250ml.bag @ 12 UNITS/KG/HR 9.906 mls/hr IV .Q24H [facility] Rx#: [id number] Sodium Chloride 0.9% 1, 120 000 ml @ 20 mls/hr IV . Q24H [facility] Rx#:[id number] ceFAZolin 2 gm In Sodium 50 Chloride 0.9% 50 ml @ 100 mls/hr IVPB Q8HR [facility] Rx# :[id number] Oral 472 118 Other: Voiding Method Toilet Toilet Urinal Urinal # Voids 1 2 - Labs CBC & Chem 7: 04/25/22 12:02 04/25/22 06:55 Labs: Abnormal Lab Results - Last 24 Hours (Table) 04/24/22 04/24/22 04/24/22 Range/Units 16:33 20:28 22:45 RBC (4.30-5.90) m/uL Hgb (13.0-17.5) gm/dL Hct (39.0-53.0) % MCHC (31.0-37.0) g/dL RDW (11.5-15.5) % Lymphocytes # (1.0-4.8) k/uL APTT 42.7 H (22.0-30.0) sec Sodium (137-145) mmol/L Chloride (98-107) mmol/L Carbon Dioxide (22-30) mmol/L BUN (9-20) mg/dL Glucose (74-99) mg/dL POC Glucose (mg/dL) 140 H 196 H (70-110) mg/dL Calcium (8.4-10.2) mg/dL 04/25/22 04/25/22 04/25/22 Range/Units 06:28 06:55 06:55 RBC (4.30-5.90) m/uL Hgb (13.0-17.5) gm/dL Hct (39.0-53.0) % MCHC (31.0-37.0) g/dL RDW (11.5-15.5) % Lymphocytes # (1.0-4.8) k/uL APTT 73.9 H (22.0-30.0) sec Sodium 136 L (137-145) mmol/L Chloride 112 H (98-107) mmol/L Carbon Dioxide 20 L (22-30) mmol/L BUN 28 H (9-20) mg/dL Glucose 105 H (74-99) mg/dL POC Glucose (mg/dL) 126 H (70-110) mg/dL Calcium 7.8 L (8.4-10.2) mg/dL 04/25/22 04/25/22 04/25/22 Range/Units 10:11 11:48 12:02 RBC 2.47 L 2.53 L (4.30-5.90) m/uL Hgb 6.9 L* D 6.3 L* (13.0-17.5) gm/dL Hct 22.3 L 23.1 L (39.0-53.0) % MCHC 30.9 L 27.4 L (31.0-37.0) g/dL RDW 16.4 H 16.6 H (11.5-15.5) % Lymphocytes # 0.9 L (1.0-4.8) k/uL APTT (22.0-30.0) sec Sodium (137-145) mmol/L Chloride (98-107) mmol/L Carbon Dioxide (22-30) mmol/L BUN (9-20) mg/dL Glucose (74-99) mg/dL POC Glucose (mg/dL) 176 H (70-110) mg/dL Calcium (8.4-10.2) mg/dL Microbiology - Last 24 Hours (Table) 04/24/22 09:48 Gram Stain - Preliminary Foot - Right Tissue Culture - Preliminary 04/24/22 09:48 Anaerobic Culture - Preliminary Foot - Right 04/21/22 13:47 Blood Culture Gram Stain - Final Blood Blood Culture - Final Staphylococcus aureus 04/22/22 10:26 Blood Culture - Preliminary Blood No Growth after 48 hours
--- NOTE | 2022-04-25 15:32 | P.PN ---
Subjective Progress Note Date: 04/25/22 Principal diagnosis: Non-ST elevation [place] MSSA bacteremia Right diabetic foot ulcer 76-year-old male with past medical history significant for peripheral vascular disease, known carotid occlusion follows with Dr. Lawrence, Dm type 2, hypertension, hyperlipidemia, chronic foot wounds. Patient has been recently established with Dr. Bedoya after he presented to the hospital for an outpatient Lexiscan stress test on April 08. Due to his symptoms, it was decided the patient would undergo cardiac catheterization instead of stress test. He was found to have critical disease in the mid RCA, severe disease in the proximal left circumflex status post PTCA ballooning of the right coronary artery . No stent was placed at that time as patient's hemoglobin came back at 5.6 and workup was done for anemia. Echocardiogram at that time revealed normal bive ntricular dimension and systolic function. Moderate aortic stenosis with mean gradient of 20 mmHg. Mild mitral regurgitation. Patient presented to the hospital due to chest pain and shortness of breath along with chills and rigors. Chest pain has resolved. Patient is seen today in the emergency center waiting for a bed on the cardiac stepdown unit. Patient has been started on a heparin drip. EKG sinus rhythm with nonspecific T-wave inversions WBC 4.9, hemoglobin 11.3, platelet count 195. D-dimer 5.13. Sodium 136, potassium 4.7, BUN 34 and creatinine 1.2 to. Troponin 2.3, 17.3, 20.9. ProBNP 4310. Influenza A, influenza B, RSV, Covid not detected. Blood culture gram- positive cocci in clusters. Chest x-ray reveals right lower lobe infiltrate. Correlate for pneumonia, atelectasis or atypical pneumonia. Some mild increased lung markings that may correlate with atypical pneumonia or pulmonary edema. CTA of the chest revealed nearly nondiagnostic due to heavy breathing motion. Borderline heart size, pulmonary artery hypertension, small bilateral pleural effusions, diffuse septal lines and groundglass change. 04/25/2022 Patient is seen and evaluated in room at bedside; patient denies any complaint of chest pain or shortness of breath Vital signs are reviewed and remained stable with temperature of 98.6 pulse 90, respiration 18 and blood pressure 108/55 - Blood work reveals WBC of 4.6, hemoglobin of 6.9 which was repeated and came back 6.3; sodium 136, potassium 4.0, BUN/creatinine of 28/1.02 - IV heparin has been placed on hold; we will transfuse with 2 units of packed RBCs; continue to monitor H&H closely Objective - Vital Signs Vital signs: Vital Signs Temp 97.9 F 04/25/22 05:23 Pulse 81 04/25/22 05:23 Resp 20 04/25/22 05:23 BP 126/62 04/25/22 05:23 Pulse Ox 95 04/25/22 05:23 FiO2 Intake & Output 04/24/22 04/25/22 04/25/22 18:59 06:59 18:59 Intake Total 715.522 366.309 216.167 Balance 715.522 366.309 216.167 Weight 99 kg Intake: IV 131.92 Heparin Sod,Pork in 0.45% 131.92 NaCl 25,000 unit In 0.45 % NaCl 1 250ml.bag @ 12 UNITS/KG/HR 9.906 mls/hr IV .Q24H SUSIE Rx#: [id number] Intake, IV Titration 243.522 234.389 98.167 Amount Heparin Sod,Pork in 0.45% 243.522 64.389 98.167 NaCl 25,000 unit In 0.45 % NaCl 1 250ml.bag @ 12 UNITS/KG/HR 9.906 mls/hr IV .Q24H SUSIE Rx#: [id number] Sodium Chloride 0.9% 1, 120 000 ml @ 20 mls/hr IV . Q24H [facility]USIE Rx#:[id number] ceFAZolin 2 gm In Sodium 50 Chloride 0.9% 50 ml @ 100 mls/hr IVPB Q8HR SUSIE Rx# :[id number] Oral 472 118 Other: Voiding Method Toilet Toilet Urinal Urinal # Voids 1 2 - Exam Gen: This is a 76-year-old male. He is resting in a recliner and appears to be comfortable and in no acute distress. VS: reviewed HEENT: Head is atraumatic, normocephalic. Pupils equal, round. Sclerae is anicteric. NECK: Supple. No JVD. LUNGS: Clear to auscultation. No wheezes or rhonchi. No intercostal retractions. HEART: Regular rate and rhythm. 2/6 systolic murmur right sternal border. ABDOMEN: Soft. No masses. No tenderness. EXTREMITIES: No pedal edema. No calf tenderness. NEUROLOGICAL: Patient is awake, alert and oriented x3. - Labs CBC & Chem 7: 04/25/22 12:02 04/25/22 06:55 Labs: Abnormal Lab Results - Last 24 Hours (Table) 04/24/22 04/24/22 04/24/22 Range/Units 10:08 10:08 11:35 ESR 106 H (0-15) mm/hr APTT (22.0-30.0) sec Sodium (137-145) mmol/L Chloride (98-107) mmol/L Carbon Dioxide (22-30) mmol/L BUN (9-20) mg/dL Glucose (74-99) mg/dL POC Glucose (mg/dL) 183 H (70-110) mg/dL Calcium (8.4-10.2) mg/dL C-Reactive Protein 4.9 H (<1.0) mg/dL 04/24/22 04/24/22 04/24/22 Range/Units 16:33 20:28 22:45 ESR (0-15) mm/hr APTT 42.7 H (22.0-30.0) sec Sodium (137-145) mmol/L Chloride (98-107) mmol/L Carbon Dioxide (22-30) mmol/L BUN (9-20) mg/dL Glucose (74-99) mg/dL POC Glucose (mg/dL) 140 H 196 H (70-110) mg/dL Calcium (8.4-10.2) mg/dL C-Reactive Protein (<1.0) mg/dL 04/25/22 04/25/22 04/25/22 Range/Units 06:28 06:55 06:55 ESR (0-15) mm/hr APTT 73.9 H (22.0-30.0) sec Sodium 136 L (137-145) mmol/L Chloride 112 H (98-107) mmol/L Carbon Dioxide 20 L (22-30) mmol/L BUN 28 H (9-20) mg/dL Glucose 105 H (74-99) mg/dL POC Glucose (mg/dL) 126 H (70-110) mg/dL Calcium 7.8 L (8.4-10.2) mg/dL C-Reactive Protein (<1.0) mg/dL Microbiology - Last 24 Hours (Table) 04/24/22 09:48 Gram Stain - Preliminary Foot - Right Tissue Culture - Preliminary 04/24/22 09:48 Anaerobic Culture - Preliminary Foot - Right 04/21/22 13:47 Blood Culture Gram Stain - Final Blood Blood Culture - Final Staphylococcus aureus 04/22/22 10:26 Blood Culture - Preliminary Blood No Growth after 48 hours Assessment and Plan Assessment: Non-ST elevated myocardial infarction with known critical disease in the mid RCA, severe disease in the proximal left circumflex status post PTCA ballooning of the right coronary artery Chronic anemia Positive blood culture Chronic wounds lower extremities Hypertension Hyperlipidemia Carotid artery stenosis Diabetes mellitus type 2 Peripheral vascular disease Plan: Hold lisinopril low blood pressure and discontinue Nitropaste Continue patient on oral nitrate Continue heparin drip Await results of blood cultures, IV antibiotics as managed by infectious disease Patient will require repeat cardiac catheterization and possible stent placement as he now has stable hemoglobin but bacteremia will need to be treated. Dr. Bedoya will be the prn physical therapist performing cardiac catheterization probably on Tuesday. Recommend continuing patient on aspirin 81 mg daily, Lipitor 40 mg daily, Imdur 30 mg daily, Toprol-XL 25 mg daily, Ranexa 500 mg every 12 hours Further recommendations to follow based upon clinical course Thank you kindly for this consultation.
[2022-04-25 16:28] LABS: Glucose,Whole Blood 198 mg/dL (70-110)
[2022-04-25] MEDS: ATORVASTATIN 40 MG TAB PO SCH (20:00)
[2022-04-25 20:09] LABS: Glucose,Whole Blood 175 mg/dL (70-110)
[2022-04-26 06:00] LABS: Glucose,Whole Blood 126 mg/dL (70-110)
[2022-04-26] MEDS: INSULIN ASPART (NovoLOG) 100 UNIT/ML VIAL SQ SCH ×4 (06:25→21:06)
[2022-04-26 06:47] LABS: Anisocytosis Slight; Basophils % (A) 0 %; Eosinophils # (A) 0.1 k/uL (0-0.7); Eosinophils % (A) 3 %; HCT 21.8 % (39.0-53.0); HGB 7.2 gm/dL (13.0-17.5); Hypochromasia Marked; Lymphocytes # (A) 1.2 k/uL (1.0-4.8); Lymphocytes % (A) 29 %; MCH 29.1 pg (25.0-35.0); MCHC 32.8 g/dL (31.0-37.0); MCV 88.7 fL (80.0-100.0); Mean Platelet Volume 7.8; Monocytes # (A) 0.3 k/uL (0-1.0); Monocytes % (A) 7 %; Neutrophils # (A) 2.5 k/uL (1.3-7.7); Neutrophils % (A) 58 %; Platelet Count 240 k/uL (150-450); Poikilocytosis Slight; RBC 2.46 m/uL (4.30-5.90); RDW 16.5 % (11.5-15.5); WBC 4.3 k/uL (3.8-10.6)
[2022-04-26 06:59] LABS: Calcium 7.8 mg/dL (8.4-10.2)
--- NOTE | 2022-04-26 07:32 | P.PN ---
Subjective Progress Note Date: 04/25/22 Principal diagnosis: MSSA bacteremia and right diabetic foot ulcer Patient is a 76-year-old male with multiple comorbidities presented to the hospital with some chest pain and shortness of breath patient also found to MSSA bacteremia and infected callus on the plantar aspect of the right foot with some purulent drainage. The patient did have bedside debridement of the right foot infected callus completed on 04/24/2022 On today's evaluation that is 04/25/2022, the patient continues to be afebrile, patient is breathing comfortably on room air, the patient denies any chest pain shortness of breath or cough, the patient denies nausea no vomiting no abdominal pain or pain to the right foot wound area, did have low hemoglobin and is getting blood transfusion Objective - Vital Signs Vital signs: Vital Signs Temp 98 F 04/25/22 17:22 Pulse 61 04/25/22 17:22 Resp 16 04/25/22 17:22 BP 133/65 04/25/22 17:22 Pulse Ox 100 04/25/22 15:31 FiO2 Intake & Output 04/24/22 04/25/22 04/25/22 18:59 06:59 18:59 Intake Total 715.522 053.905 7515.167 Balance 715.522 119.568 7211.167 Weight 99 kg Intake: IV 131.92 Heparin Sod,Pork in 0.45% 131.92 NaCl 25,000 unit In 0.45 % NaCl 1 250ml.bag @ 12 UNITS/KG/HR 9.906 mls/hr IV .Q24H [facility] Rx#: [id number] Intake, IV Titration 243.522 234.389 278.167 Amount Heparin Sod,Pork in 0.45% 243.522 64.389 98.167 NaCl 25,000 unit In 0.45 % NaCl 1 250ml.bag @ 12 UNITS/KG/HR 9.906 mls/hr IV .Q24H SUSIE Rx#: [id number] Sodium Chloride 0.9% 1, 120 80 000 ml @ 20 mls/hr IV . Q24H [facility] Rx#:[id number] ceFAZolin 2 gm In Sodium 50 100 Chloride 0.9% 50 ml @ 100 mls/hr IVPB Q8HR [facility] Rx# :[id number] Oral 472 236 Blood Product 592 Rc Pheresis 2 As3 Unit 282 [id number] Other: Voiding Method Toilet Toilet Urinal Urinal # Voids 1 2 - Exam GENERAL DESCRIPTION: An elderly male up in the chair in no distress RESPIRATORY SYSTEM: Unlabored breathing , decreased breath sounds at bases HEART: S1 S2 regular rate and rhythm , ABDOMEN: Soft , no tenderness EXTREMITIES: Right foot wound is currently dressed, no drainage and the dressing - Labs CBC & Chem 7: 04/26/22 05:41 04/26/22 05:41 Labs: Abnormal Lab Results - Last 24 Hours (Table) 04/24/22 04/24/22 04/25/22 Range/Units 20:28 22:45 06:28 RBC (4.30-5.90) m/uL Hgb (13.0-17.5) gm/dL Hct (39.0-53.0) % MCHC (31.0-37.0) g/dL RDW (11.5-15.5) % Lymphocytes # (1.0-4.8) k/uL APTT 42.7 H (22.0-30.0) sec Sodium (137-145) mmol/L Chloride (98-107) mmol/L Carbon Dioxide (22-30) mmol/L BUN (9-20) mg/dL Glucose (74-99) mg/dL POC Glucose (mg/dL) 196 H 126 H (70-110) mg/dL Calcium (8.4-10.2) mg/dL Crossmatch 04/25/22 04/25/22 04/25/22 Range/Units 06:55 06:55 10:11 RBC 2.47 L (4.30-5.90) m/uL Hgb 6.9 L* D (13.0-17.5) gm/dL Hct 22.3 L (39.0-53.0) % MCHC 30.9 L (31.0-37.0) g/dL RDW 16.4 H (11.5-15.5) % Lymphocytes # (1.0-4.8) k/uL APTT 73.9 H (22.0-30.0) sec Sodium 136 L (137-145) mmol/L Chloride 112 H (98-107) mmol/L Carbon Dioxide 20 L (22-30) mmol/L BUN 28 H (9-20) mg/dL Glucose 105 H (74-99) mg/dL POC Glucose (mg/dL) (70-110) mg/dL Calcium 7.8 L (8.4-10.2) mg/dL Crossmatch 04/25/22 04/25/22 04/25/22 Range/Units 11:48 12:02 12:05 RBC 2.53 L (4.30-5.90) m/uL Hgb 6.3 L* (13.0-17.5) gm/dL Hct 23.1 L (39.0-53.0) % MCHC 27.4 L (31.0-37.0) g/dL RDW 16.6 H (11.5-15.5) % Lymphocytes # 0.9 L (1.0-4.8) k/uL APTT (22.0-30.0) sec Sodium (137-145) mmol/L Chloride (98-107) mmol/L Carbon Dioxide (22-30) mmol/L BUN (9-20) mg/dL Glucose (74-99) mg/dL POC Glucose (mg/dL) 176 H (70-110) mg/dL Calcium (8.4-10.2) mg/dL Crossmatch See Detail 04/25/22 Range/Units 16:27 RBC (4.30-5.90) m/uL Hgb (13.0-17.5) gm/dL Hct (39.0-53.0) % MCHC (31.0-37.0) g/dL RDW (11.5-15.5) % Lymphocytes # (1.0-4.8) k/uL APTT (22.0-30.0) sec Sodium (137-145) mmol/L Chloride (98-107) mmol/L Carbon Dioxide (22-30) mmol/L BUN (9-20) mg/dL Glucose (74-99) mg/dL POC Glucose (mg/dL) 198 H (70-110) mg/dL Calcium (8.4-10.2) mg/dL Crossmatch Microbiology - Last 24 Hours (Table) 04/22/22 10:26 Blood Culture - Preliminary Blood No Growth after 72 hours 04/24/22 09:48 Gram Stain - Preliminary Foot - Right Tissue Culture - Preliminary 04/24/22 09:48 Anaerobic Culture - Preliminary Foot - Right 04/21/22 13:47 Blood Culture Gram Stain - Final Blood Blood Culture - Final Staphylococcus aureus Assessment and Plan (1) Bacteremia Current Visit: Yes Status: Acute Code(s): R78.81 - BACTEREMIA SNOMED Code(s): 4053404 (2) Diabetic foot ulcer Current Visit: Yes Status: Acute Code(s): E11.621 - TYPE 2 DIABETES MELLITUS WITH FOOT ULCER; L97.509 - NON-PRESSURE CHRONIC ULCER OTH PRT UNSP FOOT W UNSP SEVERITY SNOMED Code(s): 695369525 Plan: 1patient with MSSA bacteremia source likely right diabetic foot infection as the patient did have a callus on the plantar aspect of the right foot and there was some purulent drainage which has been cultured and currently pending. 2x-rays of the right foot did not show any acute abnormality and inflammatory markers are elevated with a sed rate of 106 CRP of 4.9. 3 patient has been evaluated by vascular surgery and is status post debridement of the infected callus and deep culture which are currently pending 4patient has cleared his bacteremia with repeat blood culture negative, patient to continue with cefazolin and monitor clinical course closely Time with Patient: Less than 30
--- NOTE | 2022-04-26 08:06 | CDI ---
Documentation Clarification Form Date: 04/26/2022 7:46:22 AM From: Isabel Covarrubias RN CCDS Admit Date: 04/21/2022 8:11:00 PM Patient Name: Ayo Turner Visit Number: [id number] Discharge Date: ATTENTION: The Clinical Documentation Specialists (CDI) and [facility] Coding Staff appreciate your assistance in clarifying documentation. Please respond to the clarification below the line at the bottom and electronically sign. The CDI & [facility] Coding staff will review the response and follow-up if needed. Please note: Queries are made part of the Legal Health Record. If you have any questions, please contact the author of this message via ITS. Dr. Michael Lopez There is documentation of bacteremia, 04/24, Medicine note. Bacteremia is considered a lab finding. Additional clarification regarding bacteremia is requested. Patient history/risk factors: 76- year-old male presents to the ED via EMS with chest pain and shortness of breath. Medical History: DM 2; CAD; HTN; HLD and CHF. 04/22, H&P. Clinical Indicators: WBC: 04/21 4.9; Neutrophils 4.4 Blood Culture 04/21: Staphylococcus aureus Wound Culture, 04/22: Staphylococcus aureus Blood Culture, 04/22: No growth after 72 hours. ID note, 04/25: Patient has cleared his bacteremia with repeat blood culture negative, patient to continue with cefazolin and monitor clinical course closely. Treatment: ID Consult Antibiotics: 04/21 Rocephin IVP x 1; 04/21 Azithromycin IVPB x 1; 04/22 Vancomycin IVPB x 1; 04/23 Cefazolin IVPB Q8HR. Please provide additional clarification regarding the etiology/cause and/or clinical significance of the bacteremia: [ x ] Bacteremia is due to infectious process, please specify: right diabetic foot ulcer [ ] Other, please specify [ ] Unable to determine (Template Last Revised: June 2020) MTDD
--- NOTE | 2022-04-26 08:38 | P.PN ---
Subjective Progress Note Date: 04/26/22 Principal diagnosis: Chest pain This is a 76-year-old male who presented originally to the ER by EMS with complaints of chest pain and shortness of breath. Chest pain has improved, but with exertion patient does admit some mild chest discomfort. Hemoglobin dropped over the weekend and patient did receive a blood transfusion. Hemoglobin is 7.2 this morning. Also this weekend patient was evaluated by vascular surgery and had wound debridement on right foot. Patient is seen sitting in bed this morning does appear pale, but is eager to go home Objective - Vital Signs Vital signs: Vital Signs Temp 98.2 F 04/26/22 04:00 Pulse 64 04/26/22 04:00 Resp 18 04/26/22 04:00 BP 112/66 04/26/22 04:00 Pulse Ox 97 04/26/22 04:00 FiO2 Intake & Output 04/25/22 04/26/22 04/26/22 18:59 06:59 18:59 Intake Total 1224.167 Balance 1224.167 Weight 70.5 kg Intake: Intake, IV Titration 278.167 Amount Heparin Sod,Pork in 0.45% 98.167 NaCl 25,000 unit In 0.45 % NaCl 1 250ml.bag @ 12 UNITS/KG/HR 9.906 mls/hr IV .Q24H [facility]IE Rx#: [id number] Sodium Chloride 0.9% 1, 80 000 ml @ 20 mls/hr IV . Q24H [facility]IE Rx#:[id number] ceFAZolin 2 gm In Sodium 100 Chloride 0.9% 50 ml @ 100 mls/hr IVPB Q8HR SUSIE Rx# :[id number] Oral 354 Blood Product 592 Rc Pheresis 2 As3 Unit 282 [id number] Other: Voiding Method Toilet Toilet Urinal Urinal # Voids 3 - Constitutional General appearance: Present: cooperative. Absent: no acute distress - EENT Eyes: Present: EOMI, PERRLA - Respiratory Respiratory: bilateral: CTA - Cardiovascular Rhythm: regular Heart sounds: normal: S1, S2 - Gastrointestinal General gastrointestinal: Present: normal bowel sounds, soft - Integumentary Integumentary: Present: pale - Musculoskeletal Musculoskeletal: Present: gait normal - Psychiatric Psychiatric: Present: A&O x's 3, appropriate affect, intact judgment & insight - Labs CBC & Chem 7: 04/26/22 05:41 04/26/22 05:41 Labs: Abnormal Lab Results - Last 24 Hours (Table) 04/25/22 04/25/22 04/25/22 Range/Units 06:55 10:11 11:48 RBC 2.47 L (4.30-5.90) m/uL Hgb 6.9 L* D (13.0-17.5) gm/dL Hct 22.3 L (39.0-53.0) % MCHC 30.9 L (31.0-37.0) g/dL RDW 16.4 H (11.5-15.5) % Lymphocytes # (1.0-4.8) k/uL Sodium 136 L (137-145) mmol/L Chloride 112 H (98-107) mmol/L Carbon Dioxide 20 L (22-30) mmol/L BUN 28 H (9-20) mg/dL Glucose 105 H (74-99) mg/dL POC Glucose (mg/dL) 176 H (70-110) mg/dL Calcium 7.8 L (8.4-10.2) mg/dL Crossmatch 04/25/22 04/25/22 04/25/22 Range/Units 12:02 12:05 16:27 RBC 2.53 L (4.30-5.90) m/uL Hgb 6.3 L* (13.0-17.5) gm/dL Hct 23.1 L (39.0-53.0) % MCHC 27.4 L (31.0-37.0) g/dL RDW 16.6 H (11.5-15.5) % Lymphocytes # 0.9 L (1.0-4.8) k/uL Sodium (137-145) mmol/L Chloride (98-107) mmol/L Carbon Dioxide (22-30) mmol/L BUN (9-20) mg/dL Glucose (74-99) mg/dL POC Glucose (mg/dL) 198 H (70-110) mg/dL Calcium (8.4-10.2) mg/dL Crossmatch See Detail 04/25/22 04/26/22 04/26/22 Range/Units 20:08 05:41 05:41 RBC 2.46 L (4.30-5.90) m/uL Hgb 7.2 L (13.0-17.5) gm/dL Hct 21.8 L (39.0-53.0) % MCHC (31.0-37.0) g/dL RDW 16.5 H (11.5-15.5) % Lymphocytes # (1.0-4.8) k/uL Sodium (137-145) mmol/L Chloride 111 H (98-107) mmol/L Carbon Dioxide (22-30) mmol/L BUN 25 H (9-20) mg/dL Glucose (74-99) mg/dL POC Glucose (mg/dL) 175 H (70-110) mg/dL Calcium 7.8 L (8.4-10.2) mg/dL Crossmatch 04/26/22 Range/Units 05:59 RBC (4.30-5.90) m/uL Hgb (13.0-17.5) gm/dL Hct (39.0-53.0) % MCHC (31.0-37.0) g/dL RDW (11.5-15.5) % Lymphocytes # (1.0-4.8) k/uL Sodium (137-145) mmol/L Chloride (98-107) mmol/L Carbon Dioxide (22-30) mmol/L BUN (9-20) mg/dL Glucose (74-99) mg/dL POC Glucose (mg/dL) 126 H (70-110) mg/dL Calcium (8.4-10.2) mg/dL Crossmatch Microbiology - Last 24 Hours (Table) 04/22/22 14:00 Gram Stain - Final Foot - Right Wound Culture - Final Staphylococcus aureus 04/22/22 10:26 Blood Culture - Preliminary Blood No Growth after 72 hours 04/24/22 09:48 Gram Stain - Preliminary Foot - Right Tissue Culture - Preliminary Assessment and Plan (1) CHF (congestive heart failure) Current Visit: Yes Status: Acute Code(s): I50.9 - HEART FAILURE, UNSPECIFIED SNOMED Code(s): 89026682 (2) NSTEMI (non-ST elevated myocardial infarction) Current Visit: Yes Status: Acute Code(s): I21.4 - NON-ST ELEVATION (NSTEMI) MYOCARDIAL INFARCTION SNOMED Code(s): 28403898 (3) Pneumonia Current Visit: Yes Status: Acute Code(s): J18.9 - PNEUMONIA, UNSPECIFIED ORGANISM SNOMED Code(s): 049878637 (4) CAD (coronary artery disease) Current Visit: No Status: Acute Code(s): I25.10 - ATHSCL HEART DISEASE OF [place] CORONARY ARTERY W/O ANG PCTRS SNOMED Code(s): 40264039 (5) Chest pain Current Visit: No Status: Acute Code(s): R07.9 - CHEST PAIN, UNSPECIFIED SNOMED Code(s): 51688576 (6) Diabetes Current Visit: No Status: Acute Code(s): E11.9 - TYPE 2 DIABETES MELLITUS W ITHOUT COMPLICATIONS SNOMED Code(s): 21108560 (7) Elevated d-dimer Current Visit: Yes Status: Acute Code(s): R79.89 - OTHER SPECIFIED ABNORMAL FINDINGS OF BLOOD CHEMISTRY SNOMED Code(s): 935000936 (8) Bacteremia Current Visit: Yes Status: Acute Code(s): R78.81 - BACTEREMIA SNOMED Code(s): 8053728 (9) Diabetic foot ulcer Current Visit: Yes Status: Acute Code(s): E11.621 - TYPE 2 DIABETES MELLITUS WITH FOOT ULCER; L97.509 - NON-PRESSURE CHRONIC ULCER OTH PRT UNSP FOOT W UNSP SEVERITY SNOMED Code(s): 559226622 Plan: Check stool for occult blood. Check CBC and CMP in the morning. Appreciate recommendations from consultants. Will consult discharge planning to prepare patient to go home, anticipate discharge in the next 24-48 hours. Patient seen and evaluated by nurse practitioner, physician in agreement with plan
--- NOTE | 2022-04-26 08:46 | CDI ---
Documentation Clarification Form Date: 04/26/2022 8:14:15 AM From: Isabel Covarrubias RN CCDS Admit Date: 04/21/2022 8:11:00 PM Patient Name: Ayo Turner Visit Number: [id number] Discharge Date: ATTENTION: The Clinical Documentation Specialists (CDI) and [facility] Coding Staff appreciate your assistance in clarifying documentation. Please respond to the clarification below the line at the bottom and electronically sign. The CDI & [facility] Coding staff will review the response and follow-up if needed. Please note: Queries are made part of the Legal Health Record. If you have any questions, please contact the author of this message via ITS. Dr. Michael Lopez Atypical pneumonia is documented 04/25, Medicine note. Additional clarification regarding the pneumonia is requested. Patient history/risk factors: 76- year-old male presents to the ED via EMS with chest pain and shortness of breath. Medical History: DM 2; CAD; HTN; HLD and CHF. 04/22, H&P. Clinical Indicators: VS, : B/P 161/74; HR 97; Temp 100.2 F Oral; RR 24; SpO2 84 % 04/21, Labs: Wbc 4.9; Neutrophils 0.2. X-ray, : Scattered increased lung markings are present. The greater in the right lower lobe. Correlate for pulmonary edema. Atelectasis in the right lower lobe pneumonia could be considered. Consider atypical pneumonia. Lung/Breathing assessment: Medicine note, 04/25: Clear to auscultation. Treatment: Antibiotics: 04/21 Rocephin IVP x 1; 04/21 Azithromycin IVPB x 1; 04/22 Vancomycin IVPB x 1; 04/23 Cefazolin IVPB Q8HR. O2. Non rebreather, nasal cannula 2L- 6L Breathing Tx: Please clarify the type of pneumonia, if known: [x ] Community Acquired Pneumonia [ ] Pneumonia ruled out [ ] Other, please specify [ ] Unable to determine (Template Last Revised: June 2020) MTDD
--- NOTE | 2022-04-26 09:36 | P.PN ---
Subjective Progress Note Date: 04/26/22 HISTORY OF PRESENT ILLNESS: 04/25/2022 The patient is a 76-year-old male who is currently admitted to the hospital with non-ST elevated myocardial infarction. He underwent coronary angiogram in late March where he underwent balloon angioplasty of his RCA lesion, however mid case he was found to have a hemoglobin of 5 and therefore procedure was aborted. He came back to the hospital with unstable angina. During this admission he was found to have positive blood cultures, likely stemming from foot wounds. He is currently being treated with antibiotics and being followed by wound care. Overnight the patient states he's done well. No more angina since starting oral nitrates. No difficulty breathing. He is up ambulating around his room. 04/26/2022 Patient examined this morning at the bedside. Patient denies chest pain or pressure. He denies SOB. Denies any evidence of GI bleeding. Hemoglobin today is 7.2. He received 1 unit RBC transfusion yesterday. His heparin drip remains on hold. Echo from March reveals EF 55%. PHYSICAL EXAM: VITAL SIGNS: Reviewed. GENERAL: Well-developed in no acute distress. NECK: Supple. No JVD or thyromegaly LUNGS: Respirations even and unlabored. Lungs essentially clear to auscultation bilaterally. HEART: Regular rate and rhythm. S1 and S2 heard. Systolic murmur noted EXTREMITIES: Normal range of motion. No clubbing or cyanosis. Peripheral pulses intact. No lower extremity edema ASSESSMENT: Non-ST elevated myocardial infarction, peak troponin 20 S/P cardiac cath in March 2022 with balloon angioplasty of RCA lesion Positive blood cultures Chronic lower extremity wounds Hypertension Hyperlipidemia Diabetes mellitus Peripheral vascular disease Anemia with acute drop in hemoglobin, etiology unclear PLAN: Obtain limited echo to assess LV function Continue to monitor hemoglobin. Treatment of anemia per primary medicine. Heparin drip remains on hold secondary to anemia. Continue additional cardiac medications Defer any cardiac cath secondary to anemia. Continue with medical management at this time Further recommendations pending patient course Patient to follow up outpatient with Dr. Bedoya Nurse practitioner note has been reviewed by physician. Signing provider agrees with the documented findings, assessment, and plan of care. Objective - Vital Signs Vital signs: Vital Signs Temp 98.2 F 04/26/22 04:00 Pulse 64 04/26/22 04:00 Resp 18 04/26/22 04:00 BP 112/66 04/26/22 04:00 Pulse Ox 97 04/26/22 04:00 FiO2 Intake & Output 04/25/22 04/26/22 04/26/22 18:59 06:59 18:59 Intake Total 1224.167 Balance 1224.167 Weight 70.5 kg Intake: Intake, IV Titration 278.167 Amount Heparin Sod,Pork in 0.45% 98.167 NaCl 25,000 unit In 0.45 % NaCl 1 250ml.bag @ 12 UNITS/KG/HR 9.906 mls/hr IV .Q24H [facility] Rx#: [id number] Sodium Chloride 0.9% 1, 80 000 ml @ 20 mls/hr IV . Q24H [facility] Rx#:[id number] ceFAZolin 2 gm In Sodium 100 Chloride 0.9% 50 ml @ 100 mls/hr IVPB Q8HR [facility] Rx# :[id number] Oral 354 Blood Product 592 Rc Pheresis 2 As3 Unit 282 [id number] Other: Voiding Method Toilet Toilet Urinal Urinal # Voids 3 - Labs CBC & Chem 7: 04/26/22 05:41 04/26/22 05:41 Labs: Abnormal Lab Results - Last 24 Hours (Table) 04/25/22 04/25/22 04/25/22 Range/Units 10:11 11:48 12:02 RBC 2.47 L 2.53 L (4.30-5.90) m/uL Hgb 6.9 L* D 6.3 L* (13.0-17.5) gm/dL Hct 22.3 L 23.1 L (39.0-53.0) % MCHC 30.9 L 27.4 L (31.0-37.0) g/dL RDW 16.4 H 16.6 H (11.5-15.5) % Lymphocytes # 0.9 L (1.0-4.8) k/uL Chloride (98-107) mmol/L BUN (9-20) mg/dL POC Glucose (mg/dL) 176 H (70-110) mg/dL Calcium (8.4-10.2) mg/dL Crossmatch 04/25/22 04/25/22 04/25/22 Range/Units 12:05 16:27 20:08 RBC (4.30-5.90) m/uL Hgb (13.0-17.5) gm/dL Hct (39.0-53.0) % MCHC (31.0-37.0) g/dL RDW (11.5-15.5) % Lymphocytes # (1.0-4.8) k/uL Chloride (98-107) mmol/L BUN (9-20) mg/dL POC Glucose (mg/dL) 198 H 175 H (70-110) mg/dL Calcium (8.4-10.2) mg/dL Crossmatch See Detail 04/26/22 04/26/22 04/26/22 Range/Units 05:41 05:41 05:59 RBC 2.46 L (4.30-5.90) m/uL Hgb 7.2 L (13.0-17.5) gm/dL Hct 21.8 L (39.0-53.0) % MCHC (31.0-37.0) g/dL RDW 16.5 H (11.5-15.5) % Lymphocytes # (1.0-4.8) k/uL Chloride 111 H (98-107) mmol/L BUN 25 H (9-20) mg/dL POC Glucose (mg/dL) 126 H (70-110) mg/dL Calcium 7.8 L (8.4-10.2) mg/dL Crossmatch Microbiology - Last 24 Hours (Table) 04/22/22 14:00 Gram Stain - Final Foot - Right Wound Culture - Final Staphylococcus aureus 04/22/22 10:26 Blood Culture - Preliminary Blood No Growth after 72 hours 04/24/22 09:48 Gram Stain - Preliminary Foot - Right Tissue Culture - Preliminary
[2022-04-26] MEDS: CHOLECALCIFEROL 25 MCG (1000 IU) TABLET PO SCH (09:45)
[2022-04-26] MEDS: MULTIVITAMINS, THERA 1 EACH TAB PO SCH (09:45)
[2022-04-26] MEDS: RANOLAZINE 500 MG TAB.ER.12H PO SCH ×2 (09:46→21:06)
[2022-04-26] MEDS: METOPROLOL SUCCINATE (ER) 25 MG TAB.ER.24H PO SCH (09:46)
[2022-04-26] MEDS: PIOGLITAZONE 30 MG TAB PO SCH (09:46)
[2022-04-26] MEDS: ASPIRIN 81 MG PO SCH (09:46)
[2022-04-26] MEDS: ISOSORBIDE MONONITRATE ER 30 MG TAB.ER.24H PO SCH (09:46)
[2022-04-26 11:10] LABS: Glucose,Whole Blood 231 mg/dL (70-110)
[2022-04-26] MEDS: FERROUS SULFATE 325 MG TAB PO SCH (11:52)
--- NOTE | 2022-04-26 12:03 | P.PN ---
Subjective Progress Note Date: 04/26/22 Principal diagnosis: MSSA bacteremia and right diabetic foot ulcer Patient is a 76-year-old male with multiple comorbidities presented to the hospital with some chest pain and shortness of breath patient also found to MSSA bacteremia and infected callus on the plantar aspect of the right foot with some purulent drainage. The patient did have bedside debridement of the right foot infected callus completed on 04/24/2022 On today's evaluation that is 04/26/2022, the patient remains to be afebrile, patient is breathing comfortably on room air, the patient denies any chest pain shortness of breath or cough, the patient denies nausea no vomiting no abdominal pain, the patient denies pain to the right foot wound area, no new symptoms Objective - Vital Signs Vital signs: Vital Signs Temp 98.1 F 04/26/22 08:00 Pulse 87 04/26/22 08:00 Resp 16 04/26/22 08:00 BP 128/66 04/26/22 08:00 Pulse Ox 99 04/26/22 08:00 FiO2 Intake & Output 04/25/22 04/26/22 04/26/22 18:59 06:59 18:59 Intake Total 1224.167 Balance 1224.167 Weight 70.5 kg Intake: Intake, IV Titration 278.167 Amount Heparin Sod,Pork in 0.45% 98.167 NaCl 25,000 unit In 0.45 % NaCl 1 250ml.bag @ 12 UNITS/KG/HR 9.906 mls/hr IV .Q24H [facility] Rx#: [id number] Sodium Chloride 0.9% 1, 80 000 ml @ 20 mls/hr IV . Q24H [facility] Rx#:[id number] ceFAZolin 2 gm In Sodium 100 Chloride 0.9% 50 ml @ 100 mls/hr IVPB Q8HR [facility] Rx# :[id number] Oral 354 Blood Product 592 Rc Pheresis 2 As3 Unit 282 [id number] Other: Voiding Method Toilet Toilet Urinal Urinal # Voids 3 - Exam GENERAL DESCRIPTION: An elderly male up in the chair in no distress RESPIRATORY SYSTEM: Unlabored breathing , decreased breath sounds at bases HEART: S1 S2 regular rate and rhythm , ABDOMEN: Soft , no tenderness EXTREMITIES: Right foot wound is currently dressed, no drainage and the dressing - Labs CBC & Chem 7: 04/26/22 05:41 04/26/22 05:41 Labs: Abnormal Lab Results - Last 24 Hours (Table) 04/25/22 04/25/22 04/25/22 Range/Units 12:02 12:05 16:27 RBC 2.53 L (4.30-5.90) m/uL Hgb 6.3 L* (13.0-17.5) gm/dL Hct 23.1 L (39.0-53.0) % MCHC 27.4 L (31.0-37.0) g/dL RDW 16.6 H (11.5-15.5) % Lymphocytes # 0.9 L (1.0-4.8) k/uL Chloride (98-107) mmol/L BUN (9-20) mg/dL POC Glucose (mg/dL) 198 H (70-110) mg/dL Calcium (8.4-10.2) mg/dL Crossmatch See Detail 04/25/22 04/26/22 04/26/22 Range/Units 20:08 05:41 05:41 RBC 2.46 L (4.30-5.90) m/uL Hgb 7.2 L (13.0-17.5) gm/dL Hct 21.8 L (39.0-53.0) % MCHC (31.0-37.0) g/dL RDW 16.5 H (11.5-15.5) % Lymphocytes # (1.0-4.8) k/uL Chloride 111 H (98-107) mmol/L BUN 25 H (9-20) mg/dL POC Glucose (mg/dL) 175 H (70-110) mg/dL Calcium 7.8 L (8.4-10.2) mg/dL Crossmatch 04/26/22 04/26/22 Range/Units 05:59 11:08 RBC (4.30-5.90) m/uL Hgb (13.0-17.5) gm/dL Hct (39.0-53.0) % MCHC (31.0-37.0) g/dL RDW (11.5-15.5) % Lymphocytes # (1.0-4.8) k/uL Chloride (98-107) mmol/L BUN (9-20) mg/dL POC Glucose (mg/dL) 126 H 231 H (70-110) mg/dL Calcium (8.4-10.2) mg/dL Crossmatch Microbiology - Last 24 Hours (Table) 04/22/22 14:00 Gram Stain - Final Foot - Right Wound Culture - Final Staphylococcus aureus 04/22/22 10:26 Blood Culture - Preliminary Blood No Growth after 72 hours 04/24/22 09:48 Gram Stain - Preliminary Foot - Right Tissue Culture - Preliminary Assessment and Plan (1) Bacteremia Current Visit: Yes Status: Acute Code(s): R78.81 - BACTEREMIA SNOMED Code(s): 4089312 (2) Diabetic foot ulcer Current Visit: Yes Status: Acute Code(s): E11.621 - TYPE 2 DIABETES MELLITUS WITH FOOT ULCER; L97.509 - NON-PRESSURE CHRONIC ULCER OTH PRT UNSP FOOT W UNSP SEVERITY SNOMED Code(s): 673369808 Plan: 1patient with MSSA bacteremia source likely right diabetic foot infection as the patient did have a callus on the plantar aspect of the right foot and there was some purulent drainage which has been cultured and currently pending. 2x-rays of the right foot did not show any acute abnormality and inflammatory markers are elevated with a sed rate of 106 CRP of 4.9. 3 patient has been evaluated by vascular surgery and is status post debridement of the infected callus and deep culture grew MSSA and anaerobic cultures are pending 4patient has cleared his bacteremia with repeat blood culture negative 5- patient to continue with cefazolin plan is for PICC line and 6 week course of IV antibiotic therapy discussed with the case consultant Time with Patient: Less than 30
--- NOTE | 2022-04-26 12:35 | P.GSCN ---
History of Present Illness Consult date: 04/26/22 History of present illness: CHIEF COMPLAINT: Chest pain HISTORY OF PRESENT ILLNESS: This is a 76-year-old male who presented with chest pain and was found to have evidence of a non-ST elevated NC. He has been seen by cardiology. They're managing patient conservatively. Patient had cath in late March that was aborted due to a low hemoglobin. Patient with positive blood cultures and chronic lower extremity wounds. Followed by infectious disease. Patient showing evidence of anemia required 1 unit of blood during this admission. Hemoglobin 11.3 on admission did drop down to 6.3. He received 1 unit of blood and hemoglobin came up to 7.2. Patient had been on IV heparin during this admission. Heparin discontinued on April 25. Patient has a known history of hemorrhoids. Last colonoscopy was in July 2020 showing internal/external hemorrhoids. Patient has had hemorrhoidectomy surgery. Patient is never had EGD. He denies abdominal pain. Denies any nausea or vomiting. Denies any black stools or blood in his stools. Patient did require debridement of his diabetic foot ulcer by vascular surgery during this admission. PAST MEDICAL HISTORY: See below PAST SURGICAL HISTORY: See below MEDICATIONS: See below ALLERGIES: See below SOCIAL HISTORY: No illicit drug use. REVIEW OF SYSTEMS: CONSTITUTIONAL: Denies fever or chills. HEENT: Denies blurred vision, vision changes, or eye pain. Denies hemoptysis CARDIOVASCULAR: Denies chest pain or pressure. RESPIRATORY: No shortness of breath. GASTROINTESTINAL: See HPI for pertinent findings HEMATOLOGIC: Denies bleeding disorders. GENITOURINARY: Denies any blood in urine or increased urinary frequency. SKIN: Denies pruitis. Denies rash. PHYSICAL EXAM: VITAL SIGNS: Reviewed GENERAL: Well-developed in no acute distress. HEENT: No sclera icterus. Extraocular movements grossly intact. Moist buccal mucosa. Head is atraumatic, normocephalic. No nasal drainage. ABDOMEN: Soft. Nondistended. Nontender NEUROLOGIC: Alert and oriented. Cranial nerves II through XII grossly intact. LABORATORY DATA: WBC is 4.3 Hgb is 7.2 platelets are 240 Sodium 139 potassium is 4.0 creatinine 1.13 IMAGING: ASSESSMENT: 1. Microcytic Anemia 2. Non-ST elevated NC followed by cardiology 3. Foot infection status post debridement and bacteremia PLAN: -Plan for EGD and colonoscopy on with Dr. Renee -Check stool for occult blood -Start clear liquid diet and bowel prep on Tuesday -Continue monitor hemoglobin -Continue monitor for any signs or symptoms of bleeding -Continue supportive care Thank you for this consultation Physician Table Operator note has been reviewed by physician. Signing provider agrees with the documented findings, assessment, and plan of care. Past Medical History Past Medical History: Coronary Artery Disease (CAD), Diabetes Mellitus, GI Bleed, Hyperlipidemia, Hypertension Additional Past Medical History / Comment(s): rectal bleeding/diverticulitis; poor circ. slight blockage carotid arteries. History of Any Multi-Drug Resistant Organisms: None Reported Additional Past Surgical History / Comment(s): hemorrhoidectomy, colonoscopy. Past Anesthesia/Blood Transfusion Reactions: No Reported Reaction Past Psychological History: No Psychological Hx Reported Smoking Status: Former smoker Past Alcohol Use History: Occasional Additional Past Alcohol Use History / Comment(s): Smoked for 50 years, quit 8 years ago. Past Drug Use History: None Reported - Past Family History Father Family Medical History: Cancer Mother Family Medical History: Cancer Medications and Allergies Home Medications Medication Instructions Recorded Confirmed Type Aspirin EC [Ecotrin] 325 mg PO DAILY 06/27/17 04/21/22 History Atorvastatin [Lipitor] 40 mg PO HS 08/12/20 04/21/22 History Pioglitazone [Actos] 30 mg PO DAILY 08/12/20 04/21/22 History lisinopriL [Zestril] 5 mg PO DAILY 08/12/20 04/21/22 History Cholecalciferol [Vitamin D3 (25 50 mcg PO DAILY 04/08/22 04/21/22 History Mcg = 1000 Iu)] Ferrous Sulfate [Feosol] 325 mg PO MOWEFR 04/08/22 04/21/22 History Multivit-Min/FA/Lycopen/Lutein 1 tab PO DAILY 04/08/22 04/21/22 History [Centrum Silver Men Tablet] Nitroglycerin Sl Tabs [Nitrostat] 0.4 mg SUBLINGUAL Q5M PRN 04/08/22 04/21/22 History Isosorbide Mononitrate ER [Imdur] 30 mg PO DAILY 30 Days #30 tab 04/11/22 04/21/22 Rx Metoprolol Succinate (ER) [Toprol 25 mg PO DAILY 30 Days #30 tab 04/11/22 04/21/22 Rx XL] Ranolazine [Ranexa] 500 mg PO Q12HR 30 Days #60 tab 04/11/22 04/21/22 Rx Allergies Allergy/AdvReac Type Severity Reaction Status Date / Time No Known Allergies Allergy Verified 04/21/22 14:43 Surgical - Exam Vital Signs Temp Pulse Resp BP Pulse Ox 100.2 F H 97 24 161/74 84 L 04/21/22 13:19 04/21/22 13:19 04/21/22 13:19 04/21/22 13:19 04/21/22 13:19 Results - Labs 04/26/22 05:41 04/26/22 05:41 Abnormal Lab Results - Last 24 Hours (Table) 04/25/22 04/25/22 04/25/22 Range/Units 10:11 11:48 12:02 RBC 2.47 L 2.53 L (4.30-5.90) m/uL Hgb 6.9 L* D 6.3 L* (13.0-17.5) gm/dL Hct 22.3 L 23.1 L (39.0-53.0) % MCHC 30.9 L 27.4 L (31.0-37.0) g/dL RDW 16.4 H 16.6 H (11.5-15.5) % Lymphocytes # 0.9 L (1.0-4.8) k/uL Chloride (98-107) mmol/L BUN (9-20) mg/dL POC Glucose (mg/dL) 176 H (70-110) mg/dL Calcium (8.4-10.2) mg/dL Crossmatch 04/25/22 04/25/22 04/25/22 Range/Units 12:05 16:27 20:08 RBC (4.30-5.90) m/uL Hgb (13.0-17.5) gm/dL Hct (39.0-53.0) % MCHC (31.0-37.0) g/dL RDW (11.5-15.5) % Lymphocytes # (1.0-4.8) k/uL Chloride (98-107) mmol/L BUN (9-20) mg/dL POC Glucose (mg/dL) 198 H 175 H (70-110) mg/dL Calcium (8.4-10.2) mg/dL Crossmatch See Detail 04/26/22 04/26/22 04/26/22 Range/Units 05:41 05:41 05:59 RBC 2.46 L (4.30-5.90) m/uL Hgb 7.2 L (13.0-17.5) gm/dL Hct 21.8 L (39.0-53.0) % MCHC (31.0-37.0) g/dL RDW 16.5 H (11.5-15.5) % Lymphocytes # (1.0-4.8) k/uL Chloride 111 H (98-107) mmol/L BUN 25 H (9-20) mg/dL POC Glucose (mg/dL) 126 H (70-110) mg/dL Calcium 7.8 L (8.4-10.2) mg/dL Crossmatch 04/26/22 Range/Units 11:08 RBC (4.30-5.90) m/uL Hgb (13.0-17.5) gm/dL Hct (39.0-53.0) % MCHC (31.0-37.0) g/dL RDW (11.5-15.5) % Lymphocytes # (1.0-4.8) k/uL Chloride (98-107) mmol/L BUN (9-20) mg/dL POC Glucose (mg/dL) 231 H (70-110) mg/dL Calcium (8.4-10.2) mg/dL Crossmatch Microbiology - Last 24 Hours (Table) 04/22/22 14:00 Gram Stain - Final Foot - Right Wound Culture - Final Staphylococcus aureus 04/22/22 10:26 Blood Culture - Preliminary Blood No Growth after 72 hours 04/24/22 09:48 Gram Stain - Preliminary Foot - Right Tissue Culture - Preliminary Diabetes panel 04/26/22 Range/Units 05:41 Sodium 139 (137-145) mmol/L Potassium 4.0 (3.5-5.1) mmol/L Chloride 111 H (98-107) mmol/L Carbon Dioxide 23 (22-30) mmol/L BUN 25 H (9-20) mg/dL Creatinine 1.13 (0.66-1.25) mg/dL Glucose 98 (74-99) mg/dL Calcium 7.8 L (8.4-10.2) mg/dL Calcium panel 04/26/22 Range/Units 05:41 Calcium 7.8 L (8.4-10.2) mg/dL Pituitary panel 04/26/22 Range/Units 05:41 Sodium 139 (137-145) mmol/L Potassium 4.0 (3.5-5.1) mmol/L Chloride 111 H (98-107) mmol/L Carbon Dioxide 23 (22-30) mmol/L BUN 25 H (9-20) mg/dL Creatinine 1.13 (0.66-1.25) mg/dL Glucose 98 (74-99) mg/dL Calcium 7.8 L (8.4-10.2) mg/dL Adrenal panel 04/26/22 Range/Units 05:41 Sodium 139 (137-145) mmol/L Potassium 4.0 (3.5-5.1) mmol/L Chloride 111 H (98-107) mmol/L Carbon Dioxide 23 (22-30) mmol/L BUN 25 H (9-20) mg/dL Creatinine 1.13 (0.66-1.25) mg/dL Glucose 98 (74-99) mg/dL Calcium 7.8 L (8.4-10.2) mg/dL
[2022-04-26 13:13] VITALS: BMI 21.0
[2022-04-26] MEDS: SODIUM CHLORIDE 0.9% 1,000 ML IV SCH (14:36)
[2022-04-26 16:50] LABS: Glucose,Whole Blood 125 mg/dL (70-110)
[2022-04-26 20:05] LABS: Glucose,Whole Blood 153 mg/dL (70-110)
[2022-04-26] MEDS: ATORVASTATIN 40 MG TAB PO SCH (21:06)
[2022-04-27 05:57] LABS: Glucose,Whole Blood 105 mg/dL (70-110)
[2022-04-27] MEDS: INSULIN ASPART (NovoLOG) 100 UNIT/ML VIAL SQ SCH ×4 (06:31→20:20)
--- NOTE | 2022-04-27 07:54 | CDI ---
Documentation Clarification Form Date: 04/23/2022 4:30:39 PM From: Isabel Covarrubias RN CCDS Admit Date: 04/21/2022 8:11:00 PM Patient Name: Ayo Turner Visit Number: [id number] Discharge Date: ATTENTION: The Clinical Documentation Specialists (CDI) and [facility] Coding Staff appreciate your assistance in clarifying documentation. Please respond to the clarification below the line at the bottom and electronically sign. The CDI & [facility] Coding staff will review the response and follow-up if needed. Please note: Queries are made part of the Legal Health Record. If you have any questions, please contact the author of this message via ITS. Dr. Michael Lopez Your patient has decreased breath sounds, documented ED note, 04/21. Based on this information and the findings below, is there an additional diagnosis that is clinically appropriate for this patient? History/Risk Factors: 76-year-old male presents to the ED via EMS with chest pain and shortness of breath. Medical History: CAD, DM, HLD, HTN, CHF. 04/22, H&P. Tobacco use: Former Clinical Indicators: Vital signs: 04/21 13:19 B/P 161/74; HR 97; SpO2 100.2 F Oral; RR 24; SpO2 84% room air Pulse oximetry: 04/21 13:32 RR 16; SpO2 100% Nonrebreather 15L 04/21 15:04 RR 18; SpO2 98% 6L nasal cannula 04/21 18:36 RR 18; SpO2 100% 4L nasal cannula 04/22 08:55 RR 16; SpO2 100% 2L nasal cannula 04/22 17:37 RR 16; SpO2 98% room air Lung/Breathing assessment: 04/21, ED note: decreased breath sounds, other (Bibasilar crepitus) Treatment: Lasix IV x 1 Oxygen via Nonrebreather 15L and nasal cannula 2 -6L Is there an additional diagnosis that is clinically appropriate for this patient? [ x ] Acute Hypoxic Respiratory Failure (pO2 <60 mm Hg or SpO2 <91% on room air) [ ] Other Diagnosis, please specify [ ] Unable to determine (Template Last Revised: June 2020) MTDD
[2022-04-27 08:00] LABS: Anisocytosis Slight; HCT 24.3 % (39.0-53.0); HGB 7.7 gm/dL (13.0-17.5); Hypochromasia Marked; MCH 28.2 pg (25.0-35.0); MCHC 31.7 g/dL (31.0-37.0); Mean Platelet Volume 7.7; Platelet Count 298 k/uL (150-450); Poikilocytosis Slight; RBC 2.74 m/uL (4.30-5.90); RDW 16.3 % (11.5-15.5); WBC 4.9 k/uL (3.8-10.6)
[2022-04-27 08:16] LABS: Albumin 2.9 g/dL (3.5-5.0); Calcium 8.3 mg/dL (8.4-10.2); Potassium 4.3 mmol/L (3.5-5.1); Total Bilirubin 0.4 mg/dL (0.2-1.3); Total Protein 6.4 g/dL (6.3-8.2)
--- NOTE | 2022-04-27 08:32 | P.PN ---
Subjective Principal diagnosis: Angina yesterday. This is a continue progress on a 68-year-old white male who recently had RCA stent several weeks ago. He had other lesions which have now probably caused and had significant chest pain and angina. The patient is resting comfortably and unfortunately chronic catheterization is on hold given his overall medical condition and anemia. He is scheduled for colonoscopy and EGD this . But he is resting quite easily with no voiding difficulties. Objective - Vital Signs Vital signs: Vital Signs Temp 98.3 F 04/27/22 04:00 Pulse 64 04/27/22 04:00 Resp 15 04/27/22 04:00 BP 122/62 04/27/22 04:00 Pulse Ox 98 04/27/22 04:00 FiO2 Intake & Output 04/26/22 04/27/22 04/27/22 18:59 06:59 18:59 Intake Total 1130 118 Balance 1130 118 Weight 70.5 kg Intake: Intake, IV Titration 50 Amount ceFAZolin 2 gm In Sodium 50 Chloride 0.9% 50 ml @ 100 mls/hr IVPB Q8HR [facility] Rx# :[id number] Oral 1080 118 Other: Voiding Method Toilet Urinal # Voids 1 - Constitutional General appearance: Present: average body habitus - EENT Eyes: Absent: abnormal pupil - Neck Neck: Absent: lymphadenopathy - Respiratory Respiratory: bilateral: diminished - Cardiovascular Rhythm: regular Heart sounds: normal: S1, S2 Abnormal Heart Sounds: Absent: S3 Gallop - Gastrointestinal General gastrointestinal: Present: soft. Absent: tenderness - Integumentary Integumentary Comment(s): Diabetic foot ulcer Integumentary: Absent: cellulitis - Labs CBC & Chem 7: 04/27/22 07:32 04/27/22 07:32 Labs: Abnormal Lab Results - Last 24 Hours (Table) 04/26/22 04/26/22 04/26/22 Range/Units 11:08 16:49 20:01 RBC (4.30-5.90) m/uL Hgb (13.0-17.5) gm/dL Hct (39.0-53.0) % RDW (11.5-15.5) % Chloride (98-107) mmol/L BUN (9-20) mg/dL Glucose (74-99) mg/dL POC Glucose (mg/dL) 231 H 125 H 153 H (70-110) mg/dL Calcium (8.4-10.2) mg/dL Alkaline Phosphatase (38-126) U/L Albumin (3.5-5.0) g/dL 04/27/22 04/27/22 Range/Units 07:32 07:32 RBC 2.74 L (4.30-5.90) m/uL Hgb 7.7 L (13.0-17.5) gm/dL Hct 24.3 L (39.0-53.0) % RDW 16.3 H (11.5-15.5) % Chloride 110 H (98-107) mmol/L BUN 21 H (9-20) mg/dL Glucose 103 H (74-99) mg/dL POC Glucose (mg/dL) (70-110) mg/dL Calcium 8.3 L (8.4-10.2) mg/dL Alkaline Phosphatase 133 H (38-126) U/L Albumin 2.9 L (3.5-5.0) g/dL Microbiology - Last 24 Hours (Table) 04/24/22 09:48 Gram Stain - Final Foot - Right Tissue Culture - Final 04/22/22 10:26 Blood Culture - Preliminary Blood No Growth after 96 hours 04/24/22 09:48 Anaerobic Culture - Preliminary Foot - Right Assessment and Plan (1) NSTEMI (non-ST elevated myocardial infarction) Current Visit: Yes Status: Acute Code(s): I21.4 - NON-ST ELEVATION (NSTEMI) MYOCARDIAL INFARCTION SNOMED Code(s): 08391390 (2) Angina at rest Current Visit: No Status: Acute Code(s): I20.8 - OTHER FORMS OF ANGINA PECTORIS SNOMED Code(s): 538776019 (3) CAD (coronary artery disease) Current Visit: No Status: Acute Code(s): I25.10 - ATHSCL HEART DISEASE OF [place] CORONARY ARTERY W/O ANG PCTRS SNOMED Code(s): 56072608 (4) Chest pain Current Visit: No Status: Acute Code(s): R07.9 - CHEST PAIN, UNSPECIFIED SNOMED Code(s): 46887172 Plan: The patient is scheduled to have PICC line for long-term antibiotic treatment. Await endoscopy. Anticipate discharge in the next 48 hours
[2022-04-27] MEDS: METOPROLOL SUCCINATE (ER) 25 MG TAB.ER.24H PO SCH (09:05)
[2022-04-27] MEDS: ISOSORBIDE MONONITRATE ER 30 MG TAB.ER.24H PO SCH (09:05)
[2022-04-27] MEDS: RANOLAZINE 500 MG TAB.ER.12H PO SCH ×2 (09:05→20:20)
[2022-04-27] MEDS: ASPIRIN 81 MG PO SCH (09:05)
[2022-04-27] MEDS: MULTIVITAMINS, THERA 1 EACH TAB PO SCH (09:05)
[2022-04-27] MEDS: CHOLECALCIFEROL 25 MCG (1000 IU) TABLET PO SCH (09:05)
[2022-04-27] MEDS: PIOGLITAZONE 30 MG TAB PO SCH (09:06)
--- NOTE | 2022-04-27 10:12 | CA ---
Transthoracic Echo Report Name: Ayo Turner Age: 76 Gender: M : 1945 Exam Date: 04/26/2022 13:27 Exam Location: [facility] Ht (in): 72 Wt (lb): 155 Ordering Physician: Harini Ellis Attending/Referring Phys: [id number], Caleb Soa Integration Developer Fallon Elias, KAYY Procedure CPT: Indications: NSTEMI, LV Function Cardiac Hx: Echo done 04/08/22: Limited Echo for LV function. Technical Quality: Contrast 1: Total Dose (mL): Contrast 2: Total Dose (mL): MEASUREMENTS (Male / Female) Normal Values FINDINGS Left Ventricle Left ventricular ejection fraction is estimated at 55%. Right Ventricle Right Atrium Left Atrium Mitral Valve Aortic Valve Tricuspid Valve Pulmonic Valve Pericardium Aorta CONCLUSIONS This was a limited study to assess LV function. Normal LV size and systolic function ejection fraction of 55%. No LVH. No significant abnormality on the available Doppler images Previewed by: Dr. Terence Landry MD (Electronically Signed) Final Date: 27 April 2022 10:11
--- NOTE | 2022-04-27 10:47 | P.PN ---
Subjective Progress Note Date: 04/27/22 HISTORY OF PRESENT ILLNESS: 04/25/2022 The patient is a 76-year-old male who is currently admitted to the hospital with non-ST elevated myocardial infarction. He underwent coronary angiogram in late March where he underwent balloon angioplasty of his RCA lesion, however mid case he was found to have a hemoglobin of 5 and therefore procedure was aborted. He came back to the hospital with unstable angina. During this admission he was found to have positive blood cultures, likely stemming from foot wounds. He is currently being treated with antibiotics and being followed by wound care. Overnight the patient states he's done well. No more angina since starting oral nitrates. No difficulty breathing. He is up ambulating around his room. 04/26/2022 Patient examined this morning at the bedside. Patient denies chest pain or pressure. He denies SOB. Denies any evidence of GI bleeding. Hemoglobin today is 7.2. He received 1 unit RBC transfusion yesterday. His heparin drip remains on hold. Echo from March reveals EF 55%. 04/27/2022 Patient examined this morning at the bedside. Patient denies chest pain or pressure. Denies SOB. He was evaluated by general surgery and is scheduled for EGD and colonoscopy on . Hemoglobin 7.7 today. Limited echo completed revealing ejection fraction 55%. PHYSICAL EXAM: VITAL SIGNS: Reviewed. GENERAL: Well-developed in no acute distress. NECK: Supple. No JVD or thyromegaly LUNGS: Respirations even and unlabored. Lungs essentially clear to auscultation bilaterally. HEART: Regular rate and rhythm. S1 and S2 heard. Systolic murmur noted EXTREMITIES: Normal range of motion. No clubbing or cyanosis. Peripheral pulses intact. No lower extremity edema ASSESSMENT: Non-ST elevated myocardial infarction, peak troponin 20 S/P cardiac cath in March 2022 with balloon angioplasty of RCA lesion Positive blood cultures Chronic lower extremity wounds Hypertension Hyperlipidemia Diabetes mellitus Peripheral vascular disease Anemia with acute drop in hemoglobin, etiology unclear PLAN: Continue to monitor hemoglobin. Patient scheduled for EGD and colonoscopy on with general surgery. Heparin drip discontinued secondary to anemia Continue additional cardiac medications Defer any cardiac cath secondary to anemia. Continue with medical management at this time Further recommendations pending patient course Patient to follow up outpatient with Dr. Bedoya Nurse practitioner note has been reviewed by physician. Signing provider agrees with the documented findings, assessment, and plan of care. Objective - Vital Signs Vital signs: Vital Signs Temp 97.8 F 04/27/22 09:06 Pulse 57 L 04/27/22 09:06 Resp 16 04/27/22 09:06 BP 104/63 04/27/22 09:06 Pulse Ox 99 04/27/22 09:06 FiO2 Intake & Output 04/26/22 04/27/22 04/27/22 18:59 06:59 18:59 Intake Total 1130 118 Balance 1130 118 Weight 70.5 kg Intake: Intake, IV Titration 50 Amount ceFAZolin 2 gm In Sodium 50 Chloride 0.9% 50 ml @ 100 mls/hr IVPB Q8HR [facility] Rx# :[id number] Oral 1080 118 Other: Voiding Method Toilet Urinal # Voids 1 - Labs CBC & Chem 7: 04/27/22 07:32 04/27/22 07:32 Labs: Abnormal Lab Results - Last 24 Hours (Table) 04/26/22 04/26/22 04/26/22 Range/Units 11:08 16:49 20:01 RBC (4.30-5.90) m/uL Hgb (13.0-17.5) gm/dL Hct (39.0-53.0) % RDW (11.5-15.5) % Chloride (98-107) mmol/L BUN (9-20) mg/dL Glucose (74-99) mg/dL POC Glucose (mg/dL) 231 H 125 H 153 H (70-110) mg/dL Calcium (8.4-10.2) mg/dL Alkaline Phosphatase (38-126) U/L Albumin (3.5-5.0) g/dL 04/27/22 04/27/22 Range/Units 07:32 07:32 RBC 2.74 L (4.30-5.90) m/uL Hgb 7.7 L (13.0-17.5) gm/dL Hct 24.3 L (39.0-53.0) % RDW 16.3 H (11.5-15.5) % Chloride 110 H (98-107) mmol/L BUN 21 H (9-20) mg/dL Glucose 103 H (74-99) mg/dL POC Glucose (mg/dL) (70-110) mg/dL Calcium 8.3 L (8.4-10.2) mg/dL Alkaline Phosphatase 133 H (38-126) U/L Albumin 2.9 L (3.5-5.0) g/dL Microbiology - Last 24 Hours (Table) 04/24/22 09:48 Gram Stain - Final Foot - Right Tissue Culture - Final 04/22/22 10:26 Blood Culture - Preliminary Blood No Growth after 96 hours 04/24/22 09:48 Anaerobic Culture - Preliminary Foot - Right
[2022-04-27 11:39] LABS: Glucose,Whole Blood 180 mg/dL (70-110)
--- NOTE | 2022-04-27 14:14 | P.PN ---
Subjective Progress Note Date: 04/27/22 CHIEF COMPLAINT: Anemia HISTORY OF PRESENT ILLNESS: Patient sitting up at bedside chair. Denies any blood in his stools. Awaiting stool to be collected for occult blood. Patient to start GoLYTELY bowel prep tomorrow. He denies abdominal pain. Afebrile. WBC is 4.9HgB is 7.7 platelets 298 sodium is 13-4.3 creatinine 1.05 PHYSICAL EXAM: VITAL SIGNS: Reviewed. GENERAL: Well-developed in no acute distress. HEENT: No sclera icterus. Extraocular movements grossly intact. Moist buccal mucosa. Head is atraumatic, normocephalic. ABDOMEN: Soft. Nondistended. Nontender. NEUROLOGIC: Alert and oriented. Cranial nerves II through XII grossly intact. ASSESSMENT: 1. Microcytic Anemia 2. Non-ST elevated ME followed by cardiology 3. Diabetic Foot infection status post debridement 4. Bacteremia due to diabetic foot infection PLAN: -Patient scheduled for EGD and colonoscopy on with Dr. benz -Start GoLYTELY bowel prep tomorrow morning -Start clear liquid diet tomorrow morning -Continue to monitor hemoglobin -Awaiting stool to be collected for occult blood -Continue monitoring for any signs or symptoms of bleeding Physician Scrub Nurse note has been reviewed by physician. Signing provider agrees with the documented findings, assessment, and plan of care. Objective - Vital Signs Vital signs: Vital Signs Temp 97.6 F 04/27/22 12:23 Pulse 58 L 04/27/22 12:23 Resp 16 04/27/22 12:23 BP 127/71 04/27/22 12:23 Pulse Ox 100 04/27/22 12:23 FiO2 Intake & Output 04/26/22 04/27/22 04/27/22 18:59 06:59 18:59 Intake Total 1130 118 Balance 1130 118 Weight 70.5 kg Intake: Intake, IV Titration 50 Amount ceFAZolin 2 gm In Sodium 50 Chloride 0.9% 50 ml @ 100 mls/hr IVPB Q8HR [facility] Rx# :[id number] Oral 1080 118 Other: Voiding Method Toilet Urinal # Voids 1 - Labs CBC & Chem 7: 04/27/22 07:32 04/27/22 07:32 Labs: Abnormal Lab Results - Last 24 Hours (Table) 04/26/22 04/26/22 04/27/22 Range/Units 16:49 20:01 07:32 RBC 2.74 L (4.30-5.90) m/uL Hgb 7.7 L (13.0-17.5) gm/dL Hct 24.3 L (39.0-53.0) % RDW 16.3 H (11.5-15.5) % Chloride (98-107) mmol/L BUN (9-20) mg/dL Glucose (74-99) mg/dL POC Glucose (mg/dL) 125 H 153 H (70-110) mg/dL Calcium (8.4-10.2) mg/dL Alkaline Phosphatase (38-126) U/L Albumin (3.5-5.0) g/dL 04/27/22 04/27/22 Range/Units 07:32 11:35 RBC (4.30-5.90) m/uL Hgb (13.0-17.5) gm/dL Hct (39.0-53.0) % RDW (11.5-15.5) % Chloride 110 H (98-107) mmol/L BUN 21 H (9-20) mg/dL Glucose 103 H (74-99) mg/dL POC Glucose (mg/dL) 180 H (70-110) mg/dL Calcium 8.3 L (8.4-10.2) mg/dL Alkaline Phosphatase 133 H (38-126) U/L Albumin 2.9 L (3.5-5.0) g/dL Microbiology - Last 24 Hours (Table) 04/24/22 09:48 Gram Stain - Final Foot - Right Tissue Culture - Preliminary Presumptive Staph aureus 04/22/22 10:26 Blood Culture - Preliminary Blood No Growth after 96 hours 04/24/22 09:48 Anaerobic Culture - Preliminary Foot - Right
[2022-04-27 16:32] LABS: Glucose,Whole Blood 152 mg/dL (70-110)
[2022-04-27 19:35] LABS: Glucose,Whole Blood 170 mg/dL (70-110)
[2022-04-27] MEDS: ATORVASTATIN 40 MG TAB PO SCH (20:20)
--- NOTE | 2022-04-27 21:40 | P.PN ---
Subjective Progress Note Date: 04/27/22 Principal diagnosis: MSSA bacteremia and right diabetic foot ulcer Patient is a 76-year-old male with multiple comorbidities presented to the hospital with some chest pain and shortness of breath patient also found to MSSA bacteremia and infected callus on the plantar aspect of the right foot with some purulent drainage. The patient did have bedside debridement of the right foot infected callus completed on 04/24/2022 On today's evaluation that is 04/27/2022, the patient continues to be afebrile, patient is breathing comfortably on room air, the patient denies any chest pain shortness of breath or cough, the patient denies nausea no vomiting no abdominal pain and no diarrhea, the patient denies pain to the right foot wound area Objective - Vital Signs Vital signs: Vital Signs Temp 97.6 F 04/27/22 12:23 Pulse 58 L 04/27/22 12:23 Resp 16 04/27/22 12:23 BP 127/71 04/27/22 12:23 Pulse Ox 100 04/27/22 12:23 FiO2 Intake & Output 04/26/22 04/27/22 04/27/22 18:59 06:59 18:59 Intake Total 1130 118 Balance 1130 118 Weight 70.5 kg Intake: Intake, IV Titration 50 Amount ceFAZolin 2 gm In Sodium 50 Chloride 0.9% 50 ml @ 100 mls/hr IVPB Q8HR [facility] Rx# :[id number] Oral 1080 118 Other: Voiding Method Toilet Urinal # Voids 1 - Exam GENERAL DESCRIPTION: An elderly male up in the chair in no distress RESPIRATORY SYSTEM: Unlabored breathing , decreased breath sounds at bases HEART: S1 S2 regular rate and rhythm , ABDOMEN: Soft , no tenderness EXTREMITIES: Right foot wound is currently dressed, no drainage and the dressing - Labs CBC & Chem 7: 04/27/22 07:32 04/27/22 07:32 Labs: Abnormal Lab Results - Last 24 Hours (Table) 04/26/22 04/26/22 04/27/22 Range/Units 16:49 20:01 07:32 RBC 2.74 L (4.30-5.90) m/uL Hgb 7.7 L (13.0-17.5) gm/dL Hct 24.3 L (39.0-53.0) % RDW 16.3 H (11.5-15.5) % Chloride (98-107) mmol/L BUN (9-20) mg/dL Glucose (74-99) mg/dL POC Glucose (mg/dL) 125 H 153 H (70-110) mg/dL Calcium (8.4-10.2) mg/dL Alkaline Phosphatase (38-126) U/L Albumin (3.5-5.0) g/dL 04/27/22 04/27/22 Range/Units 07:32 11:35 RBC (4.30-5.90) m/uL Hgb (13.0-17.5) gm/dL Hct (39.0-53.0) % RDW (11.5-15.5) % Chloride 110 H (98-107) mmol/L BUN 21 H (9-20) mg/dL Glucose 103 H (74-99) mg/dL POC Glucose (mg/dL) 180 H (70-110) mg/dL Calcium 8.3 L (8.4-10.2) mg/dL Alkaline Phosphatase 133 H (38-126) U/L Albumin 2.9 L (3.5-5.0) g/dL Microbiology - Last 24 Hours (Table) 04/24/22 09:48 Gram Stain - Final Foot - Right Tissue Culture - Preliminary Presumptive Staph aureus 04/22/22 10:26 Blood Culture - Preliminary Blood No Growth after 96 hours 04/24/22 09:48 Anaerobic Culture - Preliminary Foot - Right Assessment and Plan (1) Bacteremia Current Visit: Yes Status: Acute Code(s): R78.81 - BACTEREMIA SNOMED Code(s): 8013359 (2) Diabetic foot ulcer Current Visit: Yes Status: Acute Code(s): E11.621 - TYPE 2 DIABETES MELLITUS WITH FOOT ULCER; L97.509 - NON-PRESSURE CHRONIC ULCER OTH PRT UNSP FOOT W UNSP SEVERITY SNOMED Code(s): 281926692 Plan: 1patient with MSSA bacteremia source likely right diabetic foot infection as the patient did have a callus on the plantar aspect of the right foot and there was some purulent drainage which has been cultured and currently pending. 2x-rays of the right foot did not show any acute abnormality and inflammatory markers are elevated with a sed rate of 106 CRP of 4.9. 3 patient has been evaluated by vascular surgery and is status post debridement of the infected callus and deep culture grew MSSA and anaerobic cultures are pending 4patient has cleared his bacteremia with repeat blood culture negative 5- patient currently being treated with cefazolin and monitor clinical course closely Time with Patient: Less than 30
[2022-04-28] MEDS: SODIUM CHLORIDE 0.9% 1,000 ML IV SCH ×2 (05:53→22:58)
[2022-04-28] MEDS: INSULIN ASPART (NovoLOG) 100 UNIT/ML VIAL SQ SCH ×4 (05:53→19:50)
[2022-04-28 05:54] LABS: Glucose,Whole Blood 105 mg/dL (70-110)
[2022-04-28 07:49] LABS: Anisocytosis Slight; HCT 22.1 % (39.0-53.0); Hypochromasia Moderate; MCHC 30.7 g/dL (31.0-37.0); MCV 87.8 fL (80.0-100.0); Mean Platelet Volume 7.4; Platelet Count 299 k/uL (150-450); Poikilocytosis Slight; RBC 2.51 m/uL (4.30-5.90); RDW 16.9 % (11.5-15.5); WBC 4.2 k/uL (3.8-10.6)
[2022-04-28 07:59] LABS: HGB 6.8 gm/dL (13.0-17.5)
[2022-04-28 08:04] LABS: Potassium 4.4 mmol/L (3.5-5.1)
[2022-04-28 08:05] LABS: Calcium 8.1 mg/dL (8.4-10.2)
--- NOTE | 2022-04-28 08:50 | P.PN ---
Subjective Principal diagnosis: Angina yesterday. This is a continue progress on a 68-year-old white male who recently had RCA stent several weeks ago. He had other lesions which have now probably caused and had significant chest pain and angina. The patient is resting comfortably and unfortunately chronic catheterization is on hold given his overall medical condition and anemia. He is scheduled for colonoscopy and EGD this . But he is resting quite easily with no voiding difficulties. This morning's hemoglobin was 6.8 and I will order another unit of PRBC. Objective - Vital Signs Vital signs: Vital Signs Temp 97.8 F 04/28/22 03:19 Pulse 70 04/28/22 03:19 Resp 18 04/28/22 03:19 BP 142/88 04/28/22 03:19 Pulse Ox 96 04/28/22 08:41 FiO2 Intake & Output 04/27/22 04/28/22 04/28/22 18:59 06:59 18:59 Intake Total 354 480 Balance 354 480 Intake: Oral 354 480 Other: Voiding Method Toilet Urinal # Voids 1 - Constitutional General appearance: Present: average body habitus - EENT Eyes: Absent: abnormal pupil - Neck Neck: Absent: lymphadenopathy - Respiratory Respiratory: bilateral: CTA - Cardiovascular Rhythm: regular Heart sounds: normal: S1, S2 Abnormal Heart Sounds: Absent: S3 Gallop - Gastrointestinal General gastrointestinal: Present: soft. Absent: tenderness - Labs CBC & Chem 7: 04/28/22 07:25 04/28/22 07:25 Labs: Abnormal Lab Results - Last 24 Hours (Table) 04/25/22 04/27/22 04/27/22 Range/Units 12:05 11:35 16:31 RBC (4.30-5.90) m/uL Hgb (13.0-17.5) gm/dL Hct (39.0-53.0) % MCHC (31.0-37.0) g/dL RDW (11.5-15.5) % Chloride (98-107) mmol/L BUN (9-20) mg/dL POC Glucose (mg/dL) 180 H 152 H (70-110) mg/dL Calcium (8.4-10.2) mg/dL Crossmatch See Detail 04/27/22 04/28/22 04/28/22 Range/Units 19:33 07:25 07:25 RBC 2.51 L (4.30-5.90) m/uL Hgb 6.8 L* (13.0-17.5) gm/dL Hct 22.1 L (39.0-53.0) % MCHC 30.7 L (31.0-37.0) g/dL RDW 16.9 H (11.5-15.5) % Chloride 110 H (98-107) mmol/L BUN 24 H (9-20) mg/dL POC Glucose (mg/dL) 170 H (70-110) mg/dL Calcium 8.1 L (8.4-10.2) mg/dL Crossmatch Microbiology - Last 24 Hours (Table) 04/22/22 10:26 Blood Culture - Preliminary Blood No Growth after 120 hours 04/24/22 09:48 Gram Stain - Final Foot - Right Tissue Culture - Preliminary Presumptive Staph aureus Assessment and Plan (1) NSTEMI (non-ST elevated myocardial infarction) Current Visit: Yes Status: Acute Code(s): I21.4 - NON-ST ELEVATION (NSTEMI) MYOCARDIAL INFARCTION SNOMED Code(s): 14228118 (2) Angina at rest Current Visit: No Status: Acute Code(s): I20.8 - OTHER FORMS OF ANGINA PECTORIS SNOMED Code(s): 777908402 (3) CAD (coronary artery disease) Current Visit: No Status: Acute Code(s): I25.10 - ATHSCL HEART DISEASE OF [place] CORONARY ARTERY W/O ANG PCTRS SNOMED Code(s): 48681116 (4) Chest pain Current Visit: No Status: Acute Code(s): R07.9 - CHEST PAIN, UNSPECIFIED SNOMED Code(s): 05379618 Plan: The patient is scheduled to have PICC line for long-term antibiotic treatment. Await endoscopy. 1 unit PRBC given today. New patch check CBC in a.m.
[2022-04-28] MEDS ORDERED: PEG 3350 (236 GM/BTL) + LYTES 4,000 ML BOTTLE PO ONE (09:00)
[2022-04-28] MEDS: METOPROLOL SUCCINATE (ER) 25 MG TAB.ER.24H PO SCH (09:03)
[2022-04-28] MEDS: RANOLAZINE 500 MG TAB.ER.12H PO SCH ×2 (09:03→19:50)
[2022-04-28] MEDS: PIOGLITAZONE 30 MG TAB PO SCH (09:03)
[2022-04-28] MEDS: MULTIVITAMINS, THERA 1 EACH TAB PO SCH (09:03)
[2022-04-28] MEDS: ISOSORBIDE MONONITRATE ER 30 MG TAB.ER.24H PO SCH (09:03)
[2022-04-28] MEDS: CHOLECALCIFEROL 25 MCG (1000 IU) TABLET PO SCH (09:03)
[2022-04-28] MEDS: ASPIRIN 81 MG PO SCH (09:03)
[2022-04-28] MEDS: FERROUS SULFATE 325 MG TAB PO SCH (09:46)
[2022-04-28] MEDS ORDERED: ONDANSETRON 4 MG/2 ML VIAL IVP PRN (10:39)
[2022-04-28 11:49] LABS: Glucose,Whole Blood 167 mg/dL (70-110)
--- NOTE | 2022-04-28 11:59 | P.PN ---
Subjective Progress Note Date: 04/28/22 HISTORY OF PRESENT ILLNESS: 04/25/2022 The patient is a 76-year-old male who is currently admitted to the hospital with non-ST elevated myocardial infarction. He underwent coronary angiogram in late March where he underwent balloon angioplasty of his RCA lesion, however mid case he was found to have a hemoglobin of 5 and therefore procedure was aborted. He came back to the hospital with unstable angina. During this admission he was found to have positive blood cultures, likely stemming from foot wounds. He is currently being treated with antibiotics and being followed by wound care. Overnight the patient states he's done well. No more angina since starting oral nitrates. No difficulty breathing. He is up ambulating around his room. 04/26/2022 Patient examined this morning at the bedside. Patient denies chest pain or pressure. He denies SOB. Denies any evidence of GI bleeding. Hemoglobin today is 7.2. He received 1 unit RBC transfusion yesterday. His heparin drip remains on hold. Echo from March reveals EF 55%. 04/27/2022 Patient examined this morning at the bedside. Patient denies chest pain or pressure. Denies SOB. He was evaluated by general surgery and is scheduled for EGD and colonoscopy on . Hemoglobin 7.7 today. Limited echo completed revealing ejection fraction 55%. 04/28/2022 Patient examined this morning at the bedside. Patient denies chest pain or pressure. He denies shortness of breath. Patient has started his GoLYTELY prep. He is scheduled for EGD and colonoscopy tomorrow which neurosurgery. Vital signs are stable. PHYSICAL EXAM: VITAL SIGNS: Reviewed. GENERAL: Well-developed in no acute distress. NECK: Supple. No JVD or thyromegaly LUNGS: Respirations even and unlabored. Lungs essentially clear to auscultation bilaterally. HEART: Regular rate and rhythm. S1 and S2 heard. Systolic murmur noted EXTREMITIES: Normal range of motion. No clubbing or cyanosis. Peripheral pulses intact. No lower extremity edema ASSESSMENT: Non-ST elevated myocardial infarction, peak troponin 20 S/P cardiac cath in March 2022 with balloon angioplasty of RCA lesion Positive blood cultures Chronic lower extremity wounds Hypertension Hyperlipidemia Diabetes mellitus Peripheral vascular disease Anemia with acute drop in hemoglobin, etiology unclear PLAN: Continue to monitor hemoglobin. Patient scheduled for EGD and colonoscopy on with general surgery. Continue current cardiac medications Defer any cardiac cath secondary to anemia. Continue with medical management at this time Further recommendations pending patient course Patient to follow up outpatient with Dr. Bedoya Nurse practitioner note has been reviewed by physician. Signing provider agrees with the documented findings, assessment, and plan of care. Objective - Vital Signs Vital signs: Vital Signs Temp 98.1 F 04/28/22 09:00 Pulse 60 04/28/22 09:00 Resp 16 04/28/22 09:00 BP 132/62 04/28/22 09:00 Pulse Ox 98 04/28/22 09:00 FiO2 Intake & Output 04/27/22 04/28/22 04/28/22 18:59 06:59 18:59 Intake Total 354 480 600 Balance 354 480 600 Intake: Oral 354 480 600 Other: Voiding Method Toilet Toilet Urinal Urinal # Voids 1 - Labs CBC & Chem 7: 04/28/22 07:25 04/28/22 07:25 Labs: Abnormal Lab Results - Last 24 Hours (Table) 04/25/22 04/27/22 04/27/22 Range/Units 12:05 16:31 19:33 RBC (4.30-5.90) m/uL Hgb (13.0-17.5) gm/dL Hct (39.0-53.0) % MCHC (31.0-37.0) g/dL RDW (11.5-15.5) % Chloride (98-107) mmol/L BUN (9-20) mg/dL POC Glucose (mg/dL) 152 H 170 H (70-110) mg/dL Calcium (8.4-10.2) mg/dL Crossmatch See Detail 04/28/22 04/28/22 04/28/22 Range/Units 07:25 07:25 11:46 RBC 2.51 L (4.30-5.90) m/uL Hgb 6.8 L* (13.0-17.5) gm/dL Hct 22.1 L (39.0-53.0) % MCHC 30.7 L (31.0-37.0) g/dL RDW 16.9 H (11.5-15.5) % Chloride 110 H (98-107) mmol/L BUN 24 H (9-20) mg/dL POC Glucose (mg/dL) 167 H (70-110) mg/dL Calcium 8.1 L (8.4-10.2) mg/dL Crossmatch Microbiology - Last 24 Hours (Table) 04/24/22 09:48 Gram Stain - Final Foot - Right Tissue Culture - Final Staphylococcus aureus 04/22/22 10:26 Blood Culture - Preliminary Blood No Growth after 120 hours
--- NOTE | 2022-04-28 12:22 | P.PN ---
Subjective Progress Note Date: 04/28/22 CHIEF COMPLAINT: Anemia HISTORY OF PRESENT ILLNESS: Patient sitting up at bedside chair. He has started the GoLYTELY bowel prep. Denies any abdominal pain. Patient did have melanotic stools. He has been on iron. Stool for occult blood positive. Hemoglobin has dropped again from 7.7-6.8 and patient is receiving a unit of blood today. Afebrile. WBC 4.2H should be 6.8 platelets 299 since 137 potassium 4.4 creatinine 1.13 PHYSICAL EXAM: VITAL SIGNS: Reviewed. GENERAL: Well-developed in no acute distress. HEENT: No sclera icterus. Extraocular movements grossly intact. Moist buccal mucosa. Head is atraumatic, normocephalic. ABDOMEN: Soft. Nondistended. Nontender. NEUROLOGIC: Alert and oriented. Cranial nerves II through XII grossly intact. ASSESSMENT: 1. Microcytic Anemia with melanotic stools and fecal occult blood positive. Patient on iron 2. Non-ST elevated [place] followed by cardiology 3. Diabetic Foot infection status post debridement 4. Bacteremia due to diabetic foot infection PLAN: -Patient scheduled for EGD and colonoscopy on with Dr. benz -Start GoLYTELY bowel prep today -Clear liquid diet today -Nothing by mouth after midnight -Continue monitor hemoglobin -Continue monitor for any signs or symptoms of bleeding -Start IV Protonix Physician Supervisor Litharge note has been reviewed by physician. Signing provider agrees with the documented findings, assessment, and plan of care. Objective - Vital Signs Vital signs: Vital Signs Temp 98.1 F 04/28/22 09:00 Pulse 60 04/28/22 09:00 Resp 16 04/28/22 09:00 BP 132/62 04/28/22 09:00 Pulse Ox 98 04/28/22 09:00 FiO2 Intake & Output 04/27/22 04/28/22 04/28/22 18:59 06:59 18:59 Intake Total 354 480 600 Balance 354 480 600 Intake: Oral 354 480 600 Blood Product 0 Rc As-1 Unit 0 [id number] Other: Voiding Method Toilet Toilet Urinal Urinal # Voids 1 - Labs CBC & Chem 7: 04/28/22 07:25 04/28/22 07:25 Labs: Abnormal Lab Results - Last 24 Hours (Table) 04/25/22 04/27/22 04/27/22 Range/Units 12:05 16:31 19:33 RBC (4.30-5.90) m/uL Hgb (13.0-17.5) gm/dL Hct (39.0-53.0) % MCHC (31.0-37.0) g/dL RDW (11.5-15.5) % Chloride (98-107) mmol/L BUN (9-20) mg/dL POC Glucose (mg/dL) 152 H 170 H (70-110) mg/dL Calcium (8.4-10.2) mg/dL Crossmatch See Detail 04/28/22 04/28/22 04/28/22 Range/Units 07:25 07:25 11:46 RBC 2.51 L (4.30-5.90) m/uL Hgb 6.8 L* (13.0-17.5) gm/dL Hct 22.1 L (39.0-53.0) % MCHC 30.7 L (31.0-37.0) g/dL RDW 16.9 H (11.5-15.5) % Chloride 110 H (98-107) mmol/L BUN 24 H (9-20) mg/dL POC Glucose (mg/dL) 167 H (70-110) mg/dL Calcium 8.1 L (8.4-10.2) mg/dL Crossmatch Microbiology - Last 24 Hours (Table) 04/24/22 09:48 Gram Stain - Final Foot - Right Tissue Culture - Final Staphylococcus aureus 04/22/22 10:26 Blood Culture - Preliminary Blood No Growth after 120 hours
[2022-04-28] MEDS: PANTOPRAZOLE 40 MG/10 ML VIAL IVP SCH (12:53)
[2022-04-28 16:22] LABS: Glucose,Whole Blood 95 mg/dL (70-110)
--- NOTE | 2022-04-28 19:10 | P.PN ---
Subjective Progress Note Date: 04/28/22 Principal diagnosis: MSSA bacteremia and right diabetic foot ulcer Patient is a 76-year-old male with multiple comorbidities presented to the hospital with some chest pain and shortness of breath patient also found to MSSA bacteremia and infected callus on the plantar aspect of the right foot with some purulent drainage. The patient did have bedside debridement of the right foot infected callus completed on 04/24/2022 On today's evaluation that is 04/28/2022, the patient remains to be afebrile, patient is breathing comfortably on room air, the patient denies any chest pain shortness of breath or cough, the patient denies nausea no vomiting no abdominal pain and no diarrhea, the patient denies pain to the right foot wound area, patient currently getting bowel prep for colonoscopy because of his low hemoglobin Objective - Vital Signs Vital signs: Vital Signs Temp 98.1 F 04/28/22 09:00 Pulse 60 04/28/22 09:00 Resp 16 04/28/22 09:00 BP 132/62 04/28/22 09:00 Pulse Ox 98 04/28/22 09:00 FiO2 Intake & Output 04/27/22 04/28/22 04/28/22 18:59 06:59 18:59 Intake Total 354 480 600 Balance 354 480 600 Intake: Oral 354 480 600 Other: Voiding Method Toilet Toilet Urinal Urinal # Voids 1 - Exam GENERAL DESCRIPTION: An elderly male up in the chair in no distress RESPIRATORY SYSTEM: Unlabored breathing , decreased breath sounds at bases HEART: S1 S2 regular rate and rhythm , ABDOMEN: Soft , no tenderness EXTREMITIES: Right foot wound is currently dressed, no drainage and the dressing - Labs CBC & Chem 7: 04/28/22 07:25 04/28/22 07:25 Labs: Abnormal Lab Results - Last 24 Hours (Table) 04/25/22 04/27/22 04/27/22 Range/Units 12:05 16:31 19:33 RBC (4.30-5.90) m/uL Hgb (13.0-17.5) gm/dL Hct (39.0-53.0) % MCHC (31.0-37.0) g/dL RDW (11.5-15.5) % Chloride (98-107) mmol/L BUN (9-20) mg/dL POC Glucose (mg/dL) 152 H 170 H (70-110) mg/dL Calcium (8.4-10.2) mg/dL Crossmatch See Detail 04/28/22 04/28/22 04/28/22 Range/Units 07:25 07:25 11:46 RBC 2.51 L (4.30-5.90) m/uL Hgb 6.8 L* (13.0-17.5) gm/dL Hct 22.1 L (39.0-53.0) % MCHC 30.7 L (31.0-37.0) g/dL RDW 16.9 H (11.5-15.5) % Chloride 110 H (98-107) mmol/L BUN 24 H (9-20) mg/dL POC Glucose (mg/dL) 167 H (70-110) mg/dL Calcium 8.1 L (8.4-10.2) mg/dL Crossmatch Microbiology - Last 24 Hours (Table) 04/24/22 09:48 Gram Stain - Final Foot - Right Tissue Culture - Final Staphylococcus aureus 04/22/22 10:26 Blood Culture - Preliminary Blood No Growth after 120 hours Assessment and Plan (1) Bacteremia Current Visit: Yes Status: Acute Code(s): R78.81 - BACTEREMIA SNOMED Code(s): 9561608 (2) Diabetic foot ulcer Current Visit: Yes Status: Acute Code(s): E11.621 - TYPE 2 DIABETES MELLITUS WITH FOOT ULCER; L97.509 - NON-PRESSURE CHRONIC ULCER OTH PRT UNSP FOOT W UNSP SEVERITY SNOMED Code(s): 750893090 Plan: 1patient with MSSA bacteremia source likely right diabetic foot infection as the patient did have a callus on the plantar aspect of the right foot and there was some purulent drainage which has been cultured and currently pending. 2x-rays of the right foot did not show any acute abnormality and inflammatory markers are elevated with a sed rate of 106 CRP of 4.9. 3 patient has been evaluated by vascular surgery and is status post debridement of the infected callus and deep culture grew MSSA and anaerobic cultures are pending 4patient has cleared his bacteremia with repeat blood culture negative 5- patient continue with cefazolin will order a PICC line for outpatient IV antibiotics prescription for outpatient IV antibiotic was given to the leyda dueñas Time with Patient: Less than 30
[2022-04-28 19:40] LABS: Glucose,Whole Blood 224 mg/dL (70-110)
[2022-04-28] MEDS: ATORVASTATIN 40 MG TAB PO SCH (19:50)
[2022-04-29 05:54] LABS: Glucose,Whole Blood 109 mg/dL (70-110)
[2022-04-29] MEDS: INSULIN ASPART (NovoLOG) 100 UNIT/ML VIAL SQ SCH ×4 (07:27→22:52)
[2022-04-29] MEDS: PANTOPRAZOLE 40 MG/10 ML VIAL IVP SCH (08:40)
[2022-04-29] MEDS: METOPROLOL SUCCINATE (ER) 25 MG TAB.ER.24H PO SCH (08:40)
[2022-04-29] MEDS: ASPIRIN 81 MG PO SCH (08:40)
[2022-04-29] MEDS: PIOGLITAZONE 30 MG TAB PO SCH (08:41)
[2022-04-29] MEDS: ISOSORBIDE MONONITRATE ER 30 MG TAB.ER.24H PO SCH (08:41)
[2022-04-29] MEDS: RANOLAZINE 500 MG TAB.ER.12H PO SCH ×2 (08:41→20:06)
--- NOTE | 2022-04-29 08:52 | P.PN ---
Subjective Progress Note Date: 04/29/22 Principal diagnosis: Chest pain This is a 76-year-old male who presented originally to the ER by EMS with complaints of chest pain and shortness of breath. Chest pain has improved, cardiology is following along. Hemoglobin continued to drop the last few days, surgery was consulted and patient will be having a EGD and colonoscopy today. Factious disease also consult the patient will have a PICC line inserted before discharge and be sent home on IV antibiotics for wound on foot Objective - Vital Signs Vital signs: Vital Signs Temp 97.9 F 04/29/22 04:00 Pulse 67 04/29/22 04:00 Resp 17 04/29/22 04:00 BP 114/58 04/29/22 04:00 Pulse Ox 98 04/29/22 04:00 FiO2 Intake & Output 04/28/22 04/29/22 04/29/22 18:59 06:59 18:59 Intake Total 3878 Balance 3878 Intake: Intake, IV Titration 50 Amount ceFAZolin 2 gm In Sodium 50 Chloride 0.9% 50 ml @ 100 mls/hr IVPB Q8HR [facility] Rx# :[id number] Oral 3518 Blood Product 310 Rc As-1 Unit 310 [id number] Other: Voiding Method Toilet Toilet Urinal Urinal # Voids 4 1 # Bowel Movements 1 - Constitutional General appearance: Present: cooperative. Absent: no acute distress - EENT Eyes: Present: PERRLA - Neck Neck: Present: normal ROM. Absent: rigidity - Respiratory Respiratory: bilateral: CTA - Cardiovascular Rhythm: regular Heart sounds: normal: S1, S2 - Gastrointestinal General gastrointestinal: Present: normal bowel sounds, soft - Integumentary Integumentary: Present: normal, normal turgor - Psychiatric Psychiatric: Present: A&O x's 3, appropriate affect, intact judgment & insight - Labs CBC & Chem 7: 04/28/22 07:25 04/28/22 07:25 Labs: Abnormal Lab Results - Last 24 Hours (Table) 04/25/22 04/28/22 04/28/22 Range/Units 12:05 11:46 19:38 POC Glucose (mg/dL) 167 H 224 H (70-110) mg/dL Crossmatch See Detail Microbiology - Last 24 Hours (Table) 04/24/22 09:48 Anaerobic Culture - Final Foot - Right 04/22/22 10:26 Blood Culture - Final Blood No Growth after 144 hours 04/24/22 09:48 Gram Stain - Final Foot - Right Tissue Culture - Final Staphylococcus aureus Assessment and Plan (1) CHF (congestive heart failure) Current Visit: Yes Status: Acute Code(s): I50.9 - HEART FAILURE, UNSPECIFIED SNOMED Code(s): 23106406 (2) NSTEMI (non-ST elevated myocardial infarction) Current Visit: Yes Status: Acute Code(s): I21.4 - NON-ST ELEVATION (NSTEMI) MYOCARDIAL INFARCTION SNOMED Code(s): 40813457 (3) Pneumonia Current Visit: Yes Status: Acute Code(s): J18.9 - PNEUMONIA, UNSPECIFIED ORGANISM SNOMED Code(s): 440012762 (4) CAD (coronary artery disease) Current Visit: No Status: Acute Code(s): I25.10 - ATHSCL HEART DISEASE OF [place] CORONARY ARTERY W/O ANG PCTRS SNOMED Code(s): 58191026 (5) Chest pain Current Visit: No Status: Acute Code(s): R07.9 - CHEST PAIN, UNSPECIFIED SNOMED Code(s): 53389947 (6) Diabetes Current Visit: No Status: Acute Code(s): E11.9 - TYPE 2 DIABETES MELLITUS WITHOUT COMPLICATIONS SNOMED Code(s): 56382160 (7) Elevated d-dimer Current Visit: Yes Status: Acute Code(s): R79.89 - OTHER SPECIFIED ABNORMAL FINDINGS OF BLOOD CHEMISTRY SNOMED Code(s): 070955307 (8) Bacteremia Current Visit: Yes Status: Acute Code(s): R78.81 - BACTEREMIA SNOMED Code(s): 5835019 (9) Diabetic foot ulcer Current Visit: Yes Status: Acute Code(s): E11.621 - TYPE 2 DIABETES MELLITUS WITH FOOT ULCER; L97.509 - NON-PRESSURE CHRONIC ULCER OTH PRT UNSP FOOT W UNSP SEVERITY SNOMED Code(s): 395918945 Plan: Will await results of scope today. Check CBC and CMP in the a.m. Patient seen and evaluated by nurse practitioner, physician in agreement with plan Time with Patient: Less than 30
[2022-04-29 09:21] LABS: INR 1.2 (<1.2); Prothrombin Time 12.4 sec (9.0-12.0)
[2022-04-29 09:23] LABS: Anisocytosis Slight; Hypochromasia Moderate; MCH 27.8 pg (25.0-35.0); MCHC 31.1 g/dL (31.0-37.0); MCV 89.3 fL (80.0-100.0); Mean Platelet Volume 7.4; Platelet Count 306 k/uL (150-450); Poikilocytosis Moderate; RBC 3.13 m/uL (4.30-5.90); RDW 16.8 % (11.5-15.5); WBC 4.6 k/uL (3.8-10.6)
[2022-04-29 09:25] LABS: HGB 8.7 gm/dL (13.0-17.5)
[2022-04-29 09:40] LABS: Albumin 2.7 g/dL (3.5-5.0); Calcium 7.9 mg/dL (8.4-10.2); Total Bilirubin 0.5 mg/dL (0.2-1.3); Total Protein 6.1 g/dL (6.3-8.2)
[2022-04-29] MEDS ORDERED: LIDOCAINE 2% INJ 20 MG/ML (2 ML VIAL) ONE (11:05)
[2022-04-29] MEDS ORDERED: IV FLUID CONTINUATION 1,000 ML IV ONE (11:05)
[2022-04-29] MEDS ORDERED: PROPOFOL 10 MG/ML 20 ML VIAL IV ONE (11:05)
--- NOTE | 2022-04-29 11:23 | P.OP ---
Date of Procedure: 04/29/22 Preoperative Diagnosis: GI bleed Postoperative Diagnosis: Antral gastritis Diverticulosis Procedure(s) Performed: EGD Colonoscopy Anesthesia: MAC Surgeon: Jose Francisco Renee Pathology: other (Antrum) Condition: stable Disposition: PACU Description of Procedure: The patient's placed on the endoscopy table in the lateral position. He received IV sedation. The gastro-/oropharynx passed in the esophagus into the stomach. Scope was placed through the pylorus. The first and second portion of the duodenum appeared normal. Scope was then brought back the antrum this was mildly inflamed. A biopsies performed. The scope was then retroflexed and remainder the stomach appeared normal. The GE junction was at 40 cm the distal esophagus appeared normal. The proximal esophagus appeared normal. Scope withdrawn for patient. There is no evidence of any upper GI bleed. Next digital rectal exam was performed. This revealed no ebonized. The colon prep was very poor. The large amount liquid stool. The flexible colonoscope was then advanced throughout the colon. The colonoscope position of the right colon. However there was a large amount liquid stool prevented advancing the scope further. This was withdrawn. Visualized right colon appeared normal. In the transverse colon there was a large liquid stool however this appeared normal. In the descending and sigmoid colon there is extensive diverticular changes. The scope was brought back the rectum this appeared normal scope withdrawn for patient. There is no evidence of lower GI bleed.
[2022-04-29 11:35] LABS: Glucose,Whole Blood 105 mg/dL (70-110)
[2022-04-29] MEDS: CHOLECALCIFEROL 25 MCG (1000 IU) TABLET PO SCH (11:40)
[2022-04-29] MEDS: MULTIVITAMINS, THERA 1 EACH TAB PO SCH (11:41)
--- NOTE | 2022-04-29 12:35 | P.PN ---
Subjective Progress Note Date: 04/29/22 HISTORY OF PRESENT ILLNESS: 04/25/2022 The patient is a 76-year-old male who is currently admitted to the hospital with non-ST elevated myocardial infarction. He underwent coronary angiogram in late March where he underwent balloon angioplasty of his RCA lesion, however mid case he was found to have a hemoglobin of 5 and therefore procedure was aborted. He came back to the hospital with unstable angina. During this admission he was found to have positive blood cultures, likely stemming from foot wounds. He is currently being treated with antibiotics and being followed by wound care. Overnight the patient states he's done well. No more angina since starting oral nitrates. No difficulty breathing. He is up ambulating around his room. 04/26/2022 Patient examined this morning at the bedside. Patient denies chest pain or pressure. He denies SOB. Denies any evidence of GI bleeding. Hemoglobin today is 7.2. He received 1 unit RBC transfusion yesterday. His heparin drip remains on hold. Echo from March reveals EF 55%. 04/27/2022 Patient examined this morning at the bedside. Patient denies chest pain or pressure. Denies SOB. He was evaluated by general surgery and is scheduled for EGD and colonoscopy on . Hemoglobin 7.7 today. Limited echo completed revealing ejection fraction 55%. 04/28/2022 Patient examined this morning at the bedside. Patient denies chest pain or pressure. He denies shortness of breath. Patient has started his GoLYTELY prep. He is scheduled for EGD and colonoscopy tomorrow with general surgery. Vital signs are stable. 04/29/2022 Patient examined this morning at the bedside. Patient is scheduled for EGD and colonoscopy today. He denies any chest pain or pressure. He denies any shortness of breath. Vital signs are stable. PHYSICAL EXAM: VITAL SIGNS: Reviewed. GENERAL: Well-developed in no acute distress. NECK: Supple. No JVD or thyromegaly LUNGS: Respirations even and unlabored. Lungs essentially clear to auscultation bilaterally. HEART: Regular rate and rhythm. S1 and S2 heard. Systolic murmur noted EXTREMITIES: Normal range of motion. No clubbing or cyanosis. Peripheral pulses intact. No lower extremity edema ASSESSMENT: Non-ST elevated myocardial infarction, peak troponin 20 S/P cardiac cath in March 2022 with balloon angioplasty of RCA lesion Positive blood cultures Chronic lower extremity wounds Hypertension Hyperlipidemia Diabetes mellitus Peripheral vascular disease Anemia with acute drop in hemoglobin, etiology unclear PLAN: Continue to monitor hemoglobin. Patient scheduled for EGD and colonoscopy today with general surgery. Continue current cardiac medications Defer any cardiac cath secondary to anemia. Continue with medical management at this time Further recommendations pending patient course Patient to follow up outpatient with Dr. Bedoya Nurse practitioner note has been reviewed by physician. Signing provider agrees with the documented findings, assessment, and plan of care. Objective - Vital Signs Vital signs: Vital Signs Temp 97.4 F L 04/29/22 08:40 Pulse 66 04/29/22 08:40 Resp 16 04/29/22 08:40 BP 147/67 04/29/22 08:40 Pulse Ox 99 04/29/22 08:40 FiO2 Intake & Output 04/28/22 04/29/22 04/29/22 18:59 06:59 18:59 Intake Total 3878 200 Balance 3878 200 Intake: IV 200 Intake, IV Titration 50 Amount ceFAZolin 2 gm In Sodium 50 Chloride 0.9% 50 ml @ 100 mls/hr IVPB Q8HR [facility] Rx# :[id number] Oral 3518 Blood Product 310 Rc As-1 Unit 310 [id number] Other: Voiding Method Toilet Toilet Toilet Urinal Urinal Urinal # Voids 4 1 # Bowel Movements 1 - Labs CBC & Chem 7: 04/29/22 08:36 04/29/22 08:36 Labs: Abnormal Lab Results - Last 24 Hours (Table) 04/25/22 04/28/22 04/29/22 Range/Units 12:05 19:38 08:36 RBC 3.13 L (4.30-5.90) m/uL Hgb 8.7 L D (13.0-17.5) gm/dL Hct 28.0 L (39.0-53.0) % RDW 16.8 H (11.5-15.5) % PT (9.0-12.0) sec INR (<1.2) POC Glucose (mg/dL) 224 H (70-110) mg/dL Calcium (8.4-10.2) mg/dL Alkaline Phosphatase (38-126) U/L Total Protein (6.3-8.2) g/dL Albumin (3.5-5.0) g/dL Crossmatch See Detail 04/29/22 04/29/22 Range/Units 08:36 08:36 RBC (4.30-5.90) m/uL Hgb (13.0-17.5) gm/dL Hct (39.0-53.0) % RDW (11.5-15.5) % PT 12.4 H (9.0-12.0) sec INR 1.2 H (<1.2) POC Glucose (mg/dL) (70-110) mg/dL Calcium 7.9 L (8.4-10.2) mg/dL Alkaline Phosphatase 133 H (38-126) U/L Total Protein 6.1 L (6.3-8.2) g/dL Albumin 2.7 L (3.5-5.0) g/dL Crossmatch Microbiology - Last 24 Hours (Table) 04/28/22 07:33 Blood Culture - Preliminary Blood No Growth after 24 hours 04/24/22 09:48 Anaerobic Culture - Final Foot - Right 04/22/22 10:26 Blood Culture - Final Blood No Growth after 144 hours 04/24/22 09:48 Gram Stain - Final Foot - Right Tissue Culture - Final Staphylococcus aureus
[2022-04-29 16:34] LABS: Glucose,Whole Blood 159 mg/dL (70-110)
--- NOTE | 2022-04-29 18:52 | P.PN ---
Subjective Progress Note Date: 04/29/22 Principal diagnosis: MSSA bacteremia and right diabetic foot ulcer Patient is a 76-year-old male with multiple comorbidities presented to the hospital with some chest pain and shortness of breath patient also found to MSSA bacteremia and infected callus on the plantar aspect of the right foot with some purulent drainage. The patient did have bedside debridement of the right foot infected callus completed on 04/24/2022 On today's evaluation that is 04/29/2022, the patient continues to be afebrile, patient is breathing comfortably on room air, the patient denies any chest pain shortness of breath or cough, the patient denies nausea no vomiting no abdominal pain and no diarrhea, the patient denies pain to the right foot wound area, patient is waiting for EGD and colonoscopy this morning Objective - Vital Signs Vital signs: Vital Signs Temp 97.4 F L 04/29/22 08:40 Pulse 66 04/29/22 08:40 Resp 16 04/29/22 08:40 BP 147/67 04/29/22 08:40 Pulse Ox 99 04/29/22 08:40 FiO2 Intake & Output 04/28/22 04/29/22 04/29/22 18:59 06:59 18:59 Intake Total 3878 Balance 3878 Intake: Intake, IV Titration 50 Amount ceFAZolin 2 gm In Sodium 50 Chloride 0.9% 50 ml @ 100 mls/hr IVPB Q8HR [facility] Rx# :[id number] Oral 3518 Blood Product 310 Rc As-1 Unit 310 [id number] Other: Voiding Method Toilet Toilet Toilet Urinal Urinal Urinal # Voids 4 1 # Bowel Movements 1 - Exam GENERAL DESCRIPTION: An elderly male up in the chair in no distress RESPIRATORY SYSTEM: Unlabored breathing , decreased breath sounds at bases HEART: S1 S2 regular rate and rhythm , ABDOMEN: Soft , no tenderness EXTREMITIES: Right foot wound is currently dressed, no drainage and the dressing - Labs CBC & Chem 7: 04/29/22 08:36 04/29/22 08:36 Labs: Abnormal Lab Results - Last 24 Hours (Table) 04/25/22 04/28/22 04/28/22 Range/Units 12:05 11:46 19:38 RBC (4.30-5.90) m/uL Hgb (13.0-17.5) gm/dL Hct (39.0-53.0) % RDW (11.5-15.5) % PT (9.0-12.0) sec INR (<1.2) POC Glucose (mg/dL) 167 H 224 H (70-110) mg/dL Calcium (8.4-10.2) mg/dL Alkaline Phosphatase (38-126) U/L Total Protein (6.3-8.2) g/dL Albumin (3.5-5.0) g/dL Crossmatch See Detail 04/29/22 04/29/22 04/29/22 Range/Units 08:36 08:36 08:36 RBC 3.13 L (4.30-5.90) m/uL Hgb 8.7 L D (13.0-17.5) gm/dL Hct 28.0 L (39.0-53.0) % RDW 16.8 H (11.5-15.5) % PT 12.4 H (9.0-12.0) sec INR 1.2 H (<1.2) POC Glucose (mg/dL) (70-110) mg/dL Calcium 7.9 L (8.4-10.2) mg/dL Alkaline Phosphatase 133 H (38-126) U/L Total Protein 6.1 L (6.3-8.2) g/dL Albumin 2.7 L (3.5-5.0) g/dL Crossmatch Microbiology - Last 24 Hours (Table) 04/28/22 07:33 Blood Culture - Preliminary Blood No Growth after 24 hours 04/24/22 09:48 Anaerobic Culture - Final Foot - Right 04/22/22 10:26 Blood Culture - Final Blood No Growth after 144 hours 04/24/22 09:48 Gram Stain - Final Foot - Right Tissue Culture - Final Staphylococcus aureus Assessment and Plan (1) Bacteremia Current Visit: Yes Status: Acute Code(s): R78.81 - BACTEREMIA SNOMED Code(s): 9653818 (2) Diabetic foot ulcer Current Visit: Yes Status: Acute Code(s): E11.621 - TYPE 2 DIABETES MELLITUS WITH FOOT ULCER; L97.509 - NON-PRESSURE CHRONIC ULCER OTH PRT UNSP FOOT W UNSP SEVERITY SNOMED Code(s): 306762901 Plan: 1patient with MSSA bacteremia source likely right diabetic foot infection as the patient did have a callus on the plantar aspect of the right foot and there was some purulent drainage which has been cultured and currently pending. 2x-rays of the right foot did not show any acute abnormality and inflammatory markers are elevated with a sed rate of 106 CRP of 4.9. 3 patient has been evaluated by vascular surgery and is status post debridement of the infected callus and deep culture grew MSSA and anaerobic cultures are so far negative 4patient has cleared his bacteremia with repeat blood culture negative 5- patient continue with cefazolin , patient did got his PICC line plan to continue with cefazolin on discharge and close outpatient follow-up Time with Patient: Less than 30
[2022-04-29 19:48] LABS: Glucose,Whole Blood 146 mg/dL (70-110)
[2022-04-29] MEDS: ATORVASTATIN 40 MG TAB PO SCH (20:06)
[2022-04-30] MEDS: SODIUM CHLORIDE 0.9% 1,000 ML IV SCH (02:30)
[2022-04-30 05:14] VITALS: RESP 16
[2022-04-30 06:10] LABS: Glucose,Whole Blood 103 mg/dL (70-110)
[2022-04-30] MEDS: INSULIN ASPART (NovoLOG) 100 UNIT/ML VIAL SQ SCH ×2 (06:15→11:30)
[2022-04-30 07:45] LABS: Anisocytosis Slight; HCT 28.6 % (39.0-53.0); HGB 9.1 gm/dL (13.0-17.5); Hypochromasia Moderate; MCHC 31.7 g/dL (31.0-37.0); MCV 88.4 fL (80.0-100.0); Mean Platelet Volume 7.1; Platelet Count 349 k/uL (150-450); Poikilocytosis Slight; RBC 3.24 m/uL (4.30-5.90); RDW 16.7 % (11.5-15.5); WBC 5.1 k/uL (3.8-10.6)
[2022-04-30] MEDS: PANTOPRAZOLE 40 MG/10 ML VIAL IVP SCH (07:50)
[2022-04-30] MEDS: ISOSORBIDE MONONITRATE ER 30 MG TAB.ER.24H PO SCH (07:51)
[2022-04-30] MEDS: CHOLECALCIFEROL 25 MCG (1000 IU) TABLET PO SCH (07:51)
[2022-04-30] MEDS: PIOGLITAZONE 30 MG TAB PO SCH (07:51)
[2022-04-30] MEDS: ASPIRIN 81 MG PO SCH (07:51)
[2022-04-30] MEDS: METOPROLOL SUCCINATE (ER) 25 MG TAB.ER.24H PO SCH (07:51)
[2022-04-30] MEDS: RANOLAZINE 500 MG TAB.ER.12H PO SCH (07:51)
[2022-04-30] MEDS: MULTIVITAMINS, THERA 1 EACH TAB PO SCH (07:51)
[2022-04-30] MEDS: FERROUS SULFATE 325 MG TAB PO SCH (07:52)
[2022-04-30 08:02] VITALS: TEMP 98.1
[2022-04-30 08:02] LABS: Calcium 8.1 mg/dL (8.4-10.2); Potassium 4.4 mmol/L (3.5-5.1); Total Bilirubin 0.6 mg/dL (0.2-1.3); Total Protein 6.7 g/dL (6.3-8.2)
--- NOTE | 2022-04-30 08:34 | P.DS ---
Providers Date of admission: 04/21/22 20:11 Attending physician: Michael Lopez Consults: 04/21/22 20:11 Consult Physician Urgent Consulting Provider: Bharath Blackburn Consult Reason/Comments: Elevated troponin, and STEMI, CHF Do you want consulting provider notified?: Already Contacted 04/22/22 09:39 Consult Physician Urgent Consulting Provider: Misael Mcdaniels Consult Reason/Comments: positive blood culture/bilateral foot wounds Do you want consulting provider notified?: Yes 04/23/22 12:49 Consult Physician Routine Consulting Provider: Nitish Lawrence Consult Reason/Comments: R diabetic foot wound , debridemnt and deep cultures Do you want consulting provider notified?: Yes 04/25/22 18:04 Consult Physician Stat Consulting Provider: Jose Francisco Renee Consult Reason/Comments: low hgb Do you want consulting provider notified?: Yes 04/29/22 14:44 Consult Physician Routine Consulting Provider: Richard Charles Consult Reason/Comments: anemia Do you want consulting provider notified?: Yes Primary care physician: Michael Lopez - Discharge Diagnosis(es) (1) NSTEMI (non-ST elevated myocardial infarction) Current Visit: Yes Status: Acute (2) Angina at rest Current Visit: No Status: Acute (3) CAD (coronary artery disease) Current Visit: No Status: Acute (4) Chest pain Current Visit: No Status: Acute Hospital Course: This discharge summary 76-year-old white male essentially admitted for an STEMI. The patient did not have catheterization at this visit related to the fact that the patient had diabetic foot ulceration and needs long-term antibiotic treatment and wound care. Patient has chronic anemia and ended up having EGD and colonoscopy which did not show significant source of bleeding. I do suspect this is a multifactorial issue with his advancing age and multiple issues. The patient is discharged in guarded condition to have antibiotic treatment after having PICC line. The patient will follow-up with me in about 3-5 days. Patient Condition at Discharge: Fair Plan - Discharge Summary New Discharge Prescriptions: Continue RX: Aspirin EC [Ecotrin] 325 mg PO DAILY RX: Nitroglycerin Sl Tabs [Nitrostat] 0.4 mg SUBLINGUAL Q5M PRN PRN Reason: Chest Pain RX: Cholecalciferol [Vitamin D3 (25 Mcg = 1000 Iu)] 50 mcg PO DAILY RX: Multivit-Min/FA/Lycopen/Lutein [Centrum Silver Men Tablet] 1 tab PO DAILY RX: Isosorbide Mononitrate ER [Imdur] 30 mg PO DAILY 30 Days #30 tab RX: Pioglitazone [Actos] 30 mg PO DAILY RX: Atorvastatin [Lipitor] 40 mg PO HS RX: lisinopriL [Zestril] 5 mg PO DAILY RX: Ferrous Sulfate [Feosol] 325 mg PO MOWEFR RX: Ranolazine [Ranexa] 500 mg PO Q12HR 30 Days #60 tab RX: Metoprolol Succinate (ER) [Toprol XL] 25 mg PO DAILY 30 Days #30 tab Discharge Medication List RX: Aspirin EC [Ecotrin] 325 mg PO DAILY 06/27/17 [History] RX: Atorvastatin [Lipitor] 40 mg PO HS 08/12/20 [History] RX: Pioglitazone [Actos] 30 mg PO DAILY 08/12/20 [History] RX: lisinopriL [Zestril] 5 mg PO DAILY 08/12/20 [History] RX: Cholecalciferol [Vitamin D3 (25 Mcg = 1000 Iu)] 50 mcg PO DAILY 04/08/22 [History] RX: Ferrous Sulfate [Feosol] 325 mg PO MOWEFR 04/08/22 [History] RX: Multivit-Min/FA/Lycopen/Lutein [Centrum Silver Men Tablet] 1 tab PO DAILY 04/08/22 [History] RX: Nitroglycerin Sl Tabs [Nitrostat] 0.4 mg SUBLINGUAL Q5M PRN 04/08/22 [History] RX: Isosorbide Mononitrate ER [Imdur] 30 mg PO DAILY 30 Days #30 tab 04/11/22 [Rx] RX: Metoprolol Succinate (ER) [Toprol XL] 25 mg PO DAILY 30 Days #30 tab 04/11/22 [Rx] RX: Ranolazine [Ranexa] 500 mg PO Q12HR 30 Days #60 tab 04/11/22 [Rx] Follow up Appointment(s)/Referral(s): Michael Lopez MD [Primary Care Provider] - [facility] - 1 Week [facility], [REFERRING] - 1 Week
[2022-04-30] MEDS ORDERED: LIDOCAINE 1% INJ 10MG/ML (5 ML VIAL-PF) SQ ONE (09:04)
--- NOTE | 2022-04-30 09:43 | P.PN ---
Subjective Progress Note Date: 04/30/22 HISTORY OF PRESENT ILLNESS: 04/25/2022 The patient is a 76-year-old male who is currently admitted to the hospital with non-ST elevated myocardial infarction. He underwent coronary angiogram in late March where he underwent balloon angioplasty of his RCA lesion, however mid case he was found to have a hemoglobin of 5 and therefore procedure was aborted. He came back to the hospital with unstable angina. During this admission he was found to have positive blood cultures, likely stemming from foot wounds. He is currently being treated with antibiotics and being followed by wound care. Overnight the patient states he's done well. No more angina since starting oral nitrates. No difficulty breathing. He is up ambulating around his room. 04/26/2022 Patient examined this morning at the bedside. Patient denies chest pain or pressure. He denies SOB. Denies any evidence of GI bleeding. Hemoglobin today is 7.2. He received 1 unit RBC transfusion yesterday. His heparin drip remains on hold. Echo from March reveals EF 55%. 04/27/2022 Patient examined this morning at the bedside. Patient denies chest pain or pressure. Denies SOB. He was evaluated by general surgery and is scheduled for EGD and colonoscopy on . Hemoglobin 7.7 today. Limited echo completed revealing ejection fraction 55%. 04/28/2022 Patient examined this morning at the bedside. Patient denies chest pain or pressure. He denies shortness of breath. Patient has started his GoLYTELY prep. He is scheduled for EGD and colonoscopy tomorrow with general surgery. Vital signs are stable. 04/29/2022 Patient examined this morning at the bedside. Patient is scheduled for EGD and colonoscopy today. He denies any chest pain or pressure. He denies any shortness of breath. Vital signs are stable. 04/30/2022 Patient is status post EGD and colonoscopy which was negative for any evidence of upper or lower GI bleed. Patient examined this morning at the bedside. He d enies chest pain or pressure. He denies shortness of breath. Patient is to receive a PICC line for outpatient IV antibiotics. PHYSICAL EXAM: VITAL SIGNS: Reviewed. GENERAL: Well-developed in no acute distress. NECK: Supple. No JVD or thyromegaly LUNGS: Respirations even and unlabored. Lungs essentially clear to auscultation bilaterally. HEART: Regular rate and rhythm. S1 and S2 heard. Systolic murmur noted EXTREMITIES: Normal range of motion. No clubbing or cyanosis. Peripheral pulses intact. No lower extremity edema ASSESSMENT: Non-ST elevated myocardial infarction, peak troponin 20 S/P cardiac cath in March 2022 with balloon angioplasty of RCA lesion Positive blood cultures Chronic lower extremity wounds Hypertension Hyperlipidemia Diabetes mellitus Peripheral vascular disease Anemia with acute drop in hemoglobin, etiology unclear PLAN: Continue current cardiac medications Defer cardiac cath at this time secondary to anemia and infection Patient to follow up outpatient with Dr. Bedoya Cleared for discharge from a cardiac standpoint Nurse practitioner note has been reviewed by physician. Signing provider agrees with the documented findings, assessment, and plan of care. Objective - Vital Signs Vital signs: Vital Signs Temp 98.1 F 04/30/22 07:45 Pulse 76 04/30/22 07:45 Resp 16 04/30/22 07:45 BP 151/71 04/30/22 07:45 Pulse Ox 97 04/30/22 07:45 FiO2 Intake & Output 04/29/22 04/30/22 04/30/22 18:59 06:59 18:59 Intake Total 330 Balance 330 Intake: IV 200 Intake, IV Titration 130 Amount Sodium Chloride 0.9% 1, 130 000 ml @ 20 mls/hr IV . Q24H [facility] Rx#:[id number] Other: Voiding Method Toilet Toilet Toilet Urinal Urinal Urinal # Voids 1 1 # Bowel Movements 2 - Labs CBC & Chem 7: 04/30/22 07:11 04/30/22 07:11 Labs: Abnormal Lab Results - Last 24 Hours (Table) 04/29/22 04/29/22 04/30/22 Range/Units 16:33 19:45 07:11 RBC 3.24 L (4.30-5.90) m/uL Hgb 9.1 L (13.0-17.5) gm/dL Hct 28.6 L (39.0-53.0) % RDW 16.7 H (11.5-15.5) % Glucose (74-99) mg/dL POC Glucose (mg/dL) 159 H 146 H (70-110) mg/dL Calcium (8.4-10.2) mg/dL Alkaline Phosphatase (38-126) U/L Albumin (3.5-5.0) g/dL 04/30/22 Range/Units 07:11 RBC (4.30-5.90) m/uL Hgb (13.0-17.5) gm/dL Hct (39.0-53.0) % RDW (11.5-15.5) % Glucose 109 H (74-99) mg/dL POC Glucose (mg/dL) (70-110) mg/dL Calcium 8.1 L (8.4-10.2) mg/dL Alkaline Phosphatase 134 H (38-126) U/L Albumin 3.0 L (3.5-5.0) g/dL Microbiology - Last 24 Hours (Table) 04/28/22 07:33 Blood Culture - Preliminary Blood No Growth after 48 hours
[2022-04-30 11:05] LABS: Reticulocyte % 3.4 % (0.5-2.0)
[2022-04-30 11:29] LABS: Glucose,Whole Blood 208 mg/dL (70-110)
--- NOTE | 2022-04-30 11:33 | IR ---
PICC LINE PLACEMENT: HISTORY: Infection requiring long-term antibiotic therapy PROCEDURE: Ultrasound and fluoroscopic guidance of PICC line placement. COMPLICATIONS: None ANESTHESIA: 1. 1% Lidocaine locally. FINDINGS/TECHNIQUE: The procedure was explained to the patient. The risks, complications, benefits and alternatives were discussed and any questions were answered. Informed consent was obtained. The patient was placed supine on the fluoroscopic table and prepped and draped in the usual sterile fash ion. Utilizing a 21 gauge needle and sonographic and fluoroscopic guidance, access in the left brac hial vein was achieved and there is placement of a 0.018 guidewire. The vein is patent. A 4-F sheat h was placed over the guidewire. The guidewire and dilator were removed and a 4-F. PICC line was hector angelo through the sheath with the tip at the level of the SVC. The sheath was removed, the catheter wa s flushed and sutured into position. The patient was stable throughout the procedure and remained st able upon discharge from the Department of Radiology. The vein puncture was patent under ultrasound. A matamoros scale image was obtained to document patency of the vein punctured. All elements of the maximal barrier technique were utilized. FLUOROSCOPY TIME: 0.1 minute and one images submitted IMPRESSION: Successful PICC line placement under ultrasound and fluoroscopic guidance.
[2022-04-30 11:47] VITALS: BP 138/65; PULSE 61
--- NOTE | 2022-04-30 14:22 | P.PN ---
Subjective Progress Note Date: 04/30/22 CHIEF COMPLAINT: Anemia HISTORY OF PRESENT ILLNESS: Patient status post EGD and colonoscopy revealing gastritis and diverticulosis with no evidence of active bleeding. Patient has had no further bloody stools. He is tolerating diet. Hemoglobin is stable at 9.1. He is scheduled for discharge today. PHYSICAL EXAM: VITAL SIGNS: Reviewed. GENERAL: Well-developed in no acute distress. HEENT: No sclera icterus. Extraocular movements grossly intact. Moist buccal mucosa. Head is atraumatic, normocephalic. ABDOMEN: Soft. Nondistended. Nontender. NEUROLOGIC: Alert and oriented. Cranial nerves II through XII grossly intact. ASSESSMENT: 1. Microcytic Anemia with melanotic stools and fecal occult blood positive. Patient on iron. Status post EGD and colonoscopy revealing gastritis and diver ticulosis. No evidence of active bleeding. 2. Non-ST elevated [place] followed by cardiology 3. Diabetic Foot infection status post debridement 4. Bacteremia due to diabetic foot infection PLAN: -Patient is stable from surgical standpoint for discharge. -Follow up in one week in the office -Continue PPI at discharge Physician Software Technical Lead note has been reviewed by physician. Signing provider agrees with the documented findings, assessment, and plan of care. Objective - Vital Signs Vital signs: Vital Signs Temp 98.1 F 04/30/22 07:45 Pulse 61 04/30/22 13:11 Resp 16 04/30/22 11:31 BP 138/65 04/30/22 11:31 Pulse Ox 100 04/30/22 11:31 FiO2 Intake & Output 04/29/22 04/30/22 04/30/22 18:59 06:59 18:59 Intake Total 330 Balance 330 Intake: IV 200 Intake, IV Titration 130 Amount Sodium Chloride 0.9% 1, 130 000 ml @ 20 mls/hr IV . Q24H [facility] Rx#:[id number] Other: Voiding Method Toilet Toilet Toilet Urinal Urinal Urinal # Voids 1 1 2 # Bowel Movements 2 - Labs CBC & Chem 7: 04/30/22 07:11 04/30/22 07:11 Labs: Abnormal Lab Results - Last 24 Hours (Table) 04/29/22 04/29/22 04/30/22 Range/Units 16:33 19:45 07:11 RBC 3.24 L (4.30-5.90) m/uL Hgb 9.1 L (13.0-17.5) gm/dL Hct 28.6 L (39.0-53.0) % RDW 16.7 H (11.5-15.5) % Retic Count (0.5-2.0) % Glucose (74-99) mg/dL POC Glucose (mg/dL) 159 H 146 H (70-110) mg/dL Calcium (8.4-10.2) mg/dL Alkaline Phosphatase (38-126) U/L Albumin (3.5-5.0) g/dL 04/30/22 04/30/22 04/30/22 Range/Units 07:11 10:47 11:28 RBC (4.30-5.90) m/uL Hgb (13.0-17.5) gm/dL Hct (39.0-53.0) % RDW (11.5-15.5) % Retic Count 3.4 H (0.5-2.0) % Glucose 109 H (74-99) mg/dL POC Glucose (mg/dL) 208 H (70-110) mg/dL Calcium 8.1 L (8.4-10.2) mg/dL Alkaline Phosphatase 134 H (38-126) U/L Albumin 3.0 L (3.5-5.0) g/dL Microbiology - Last 24 Hours (Table) 04/28/22 07:33 Blood Culture - Preliminary Blood No Growth after 48 hours
--- NOTE | 2022-04-30 15:09 | P.PN ---
Subjective Progress Note Date: 04/30/22 Principal diagnosis: MSSA bacteremia and right diabetic foot ulcer Patient is a 76-year-old male with multiple comorbidities presented to the hospital with some chest pain and shortness of breath patient also found to MSSA bacteremia and infected callus on the plantar aspect of the right foot with some purulent drainage. The patient did have bedside debridement of the right foot infected callus completed on 04/24/2022 On today's evaluation that is 04/30/2022, the patient remains to be afebrile, patient is breathing comfortably on room air, the patient denies any chest pain shortness of breath or cough, the patient denies nausea no vomiting no abdominal pain and no diarrhea, the patient did got a PICC line and is currently waiting for discharge for outpatient IV antibiotic arrangement Objective - Vital Signs Vital signs: Vital Signs Temp 98.1 F 04/30/22 07:45 Pulse 61 04/30/22 11:31 Resp 16 04/30/22 11:31 BP 138/65 04/30/22 11:31 Pulse Ox 100 04/30/22 11:31 FiO2 Intake & Output 04/29/22 04/30/22 04/30/22 18:59 06:59 18:59 Intake Total 330 Balance 330 Intake: IV 200 Intake, IV Titration 130 Amount Sodium Chloride 0.9% 1, 130 000 ml @ 20 mls/hr IV . Q24H [facility] Rx#:[id number] Other: Voiding Method Toilet Toilet Toilet Urinal Urinal Urinal # Voids 1 1 # Bowel Movements 2 - Exam GENERAL DESCRIPTION: An elderly male up in the chair in no distress RESPIRATORY SYSTEM: Unlabored breathing , decreased breath sounds at bases HEART: S1 S2 regular rate and rhythm , ABDOMEN: Soft , no tenderness EXTREMITIES: Right foot wound surrounding swelling redness is improved no foul- smelling drainage - Labs CBC & Chem 7: 04/30/22 07:11 04/30/22 07:11 Labs: Abnormal Lab Results - Last 24 Hours (Table) 04/29/22 04/29/22 04/30/22 Range/Units 16:33 19:45 07:11 RBC 3.24 L (4.30-5.90) m/uL Hgb 9.1 L (13.0-17.5) gm/dL Hct 28.6 L (39.0-53.0) % RDW 16.7 H (11.5-15.5) % Retic Count (0.5-2.0) % Glucose (74-99) mg/dL POC Glucose (mg/dL) 159 H 146 H (70-110) mg/dL Calcium (8.4-10.2) mg/dL Alkaline Phosphatase (38-126) U/L Albumin (3.5-5.0) g/dL 04/30/22 04/30/22 04/30/22 Range/Units 07:11 10:47 11:28 RBC (4.30-5.90) m/uL Hgb (13.0-17.5) gm/dL Hct (39.0-53.0) % RDW (11.5-15.5) % Retic Count 3.4 H (0.5-2.0) % Glucose 109 H (74-99) mg/dL POC Glucose (mg/dL) 208 H (70-110) mg/dL Calcium 8.1 L (8.4-10.2) mg/dL Alkaline Phosphatase 134 H (38-126) U/L Albumin 3.0 L (3.5-5.0) g/dL Microbiology - Last 24 Hours (Table) 04/28/22 07:33 Blood Culture - Preliminary Blood No Growth after 48 hours Assessment and Plan (1) Bacteremia Status: Acute Code(s): R78.81 - BACTEREMIA SNOMED Code(s): 7358524 (2) Diabetic foot ulcer Status: Acute Code(s): E11.621 - TYPE 2 DIABETES MELLITUS WITH FOOT ULCER; L97.509 - NON-PRESSURE CHRONIC ULCER OTH PRT UNSP FOOT W UNSP SEVERITY SNOMED Code(s): 318417570 Plan: 1patient with MSSA bacteremia source likely right diabetic foot infection as the patient did have a callus on the plantar aspect of the right foot and there was some purulent drainage 2x-rays of the right foot did not show any acute abnormality and inflammatory markers are elevated with a sed rate of 106 CRP of 4.9. 3 patient has been evaluated by vascular surgery and is status post debridement of the infected callus and deep culture grew MSSA and anaerobic cultures are so far negative 4patient has cleared his MSSA bacteremia with repeat blood culture negative 5- patient did got his PICC line plan to continue with cefazolin 2 g every 8 hours 5 weeks along with oral Flagyl we will give him a dose of Rocephin today so that he does not miss his evening dose of cefazolin questions and concerns were answered Time with Patient: Less than 30
[2022-04-30 16:41] LABS: % Iron Saturation 27.6 (15.00-50.00)
--- NOTE | 2022-04-30 17:07 | P.CONS ---
History of Present Illness - Reason for Consult Consult date: 04/30/22 anemia Requesting physician: Michael Lopez - Chief Complaint chest pain sob - History of Present Illness 76-year-old male with history of mild anemia since 2020, Hx of GI bleed-noted in chart that pt was to avoid dual antiplatelet therapy 2/2 Hx of GI bleeding. He was hospitalized in March and had PCTA RCA. He did require blood transfusion at that visit. Presents 9 days ago to the ED with c/o chest pain, SOB and chills. He had improvement in sx after receiving aspirin and nitroglycerin. Admitted for N-STEMI. Found to have MSSA bacteremia and infected callus of right foot. He is on abx, PICC line placed for outpt IV abx. Stool occult was positive, EGD/colonoscopy showed no acute bleeding. Pt denies overt bleeding, blood in stool, melena, hematuria, abrominal pain, n/v/d, fever and chills. Patient reports no history of anemia, he is unable to tell me how long. He knows he is anemic when he starts to feel cold across his chest. He has never seen a Dev Technical Mgr. He was going to have catheterization but this was held due to foot infection. Review of Systems 10 point ROS negative as stated in HPI Past Medical History Past Medical History: Coronary Artery Disease (CAD), Diabetes Mellitus, GI Bleed, Hyperlipidemia, Hypertension Additional Past Medical History / Comment(s): rectal bleeding/diverticulitis; poor circ. slight blockage carotid arteries. History of Any Multi-Drug Resistant Organisms: None Reported Additional Past Surgical History / Comment(s): hemorrhoidectomy, colonoscopy. Past Anesthesia/Blood Transfusion Reactions: No Reported Reaction Past Psychological History: No Psychological Hx Reported Smoking Status: Former smoker Past Alcohol Use History: Occasional Additional Past Alcohol Use History / Comment(s): Smoked for 50 years, quit 8 years ago. Past Drug Use History: None Reported - Past Family History Father Family Medical History: Cancer Mother Family Medical History: Cancer Medications and Allergies Home Medications Medication Instructions Recorded Confirmed Type Aspirin EC [Ecotrin] 325 mg PO DAILY 06/27/17 04/21/22 History Atorvastatin [Lipitor] 40 mg PO HS 08/12/20 04/21/22 History Pioglitazone [Actos] 30 mg PO DAILY 08/12/20 04/21/22 History lisinopriL [Zestril] 5 mg PO DAILY 08/12/20 04/21/22 History Cholecalciferol [Vitamin D3 (25 50 mcg PO DAILY 04/08/22 04/21/22 History Mcg = 1000 Iu)] Ferrous Sulfate [Feosol] 325 mg PO MOWEFR 04/08/22 04/21/22 History Multivit-Min/FA/Lycopen/Lutein 1 tab PO DAILY 04/08/22 04/21/22 History [Centrum Silver Men Tablet] Nitroglycerin Sl Tabs [Nitrostat] 0.4 mg SUBLINGUAL Q5M PRN 04/08/22 04/21/22 History Isosorbide Mononitrate ER [Imdur] 30 mg PO DAILY 30 Days #30 tab 04/11/22 04/21/22 Rx Metoprolol Succinate (ER) [Toprol 25 mg PO DAILY 30 Days #30 tab 04/11/22 04/21/22 Rx XL] Ranolazine [Ranexa] 500 mg PO Q12HR 30 Days #60 tab 04/11/22 04/21/22 Rx Omeprazole 20 mg PO DAILY #30 tab 04/30/22 Rx ceFAZolin [Kefzol] 2 gm IVP Q8HR #105 each 04/30/22 Rx metroNIDAZOLE [Flagyl] 500 mg PO TID #90 tab 04/30/22 Rx Allergies Allergy/AdvReac Type Severity Reaction Status Date / Time No Known Allergies Allergy Verified 04/21/22 14:43 Physical Exam Vitals: Vital Signs Temp Pulse Pulse Resp BP Pulse Ox 04/30/22 13:11 61 04/30/22 11:31 61 16 138/65 100 04/30/22 07:45 98.1 F 76 16 151/71 97 04/30/22 04:00 98 F 66 16 149/61 96 04/30/22 01:05 70 17 04/30/22 00:00 97.6 F 70 18 133/66 99 04/29/22 20:00 97.8 F 63 67 17 140/57 97 04/29/22 16:20 55 L 18 156/75 98 Intake and Output 04/29/22 04/30/22 04/30/22 22:59 06:59 14:59 Other: Voiding Method Toilet Toilet Toilet Urinal Urinal Urinal # Voids 1 1 2 - Constitutional General appearance: average body habitus, cooperative, no acute distress - EENT Eyes: anicteric sclerae, EOMI ENT: hearing grossly normal - Respiratory Respiratory: bilateral: CTA - Cardiovascular Rhythm: regular Heart sounds: normal: S1, S2 Abnormal Heart Sounds: no systolic murmur, no diastolic murmur, no rub, no S3 Gallop, no S4 Gallop, no click, no other leg Peripheral Edema: bilateral: None - Gastrointestinal General gastrointestinal: soft, no tenderness - Integumentary Integumentary: pale - Neurologic grossly intact Neurologic: CNII-XII intact - Musculoskeletal Musculoskeletal: strength equal bilaterally - Psychiatric Psychiatric: A&O x's 3, appropriate affect, intact judgment & insight Results CBC & Chem 7: 04/30/22 07:11 04/30/22 07:11 Labs: Abnormal Lab Results - Last 24 Hours (Table) 04/29/22 04/29/22 04/30/22 Range/Units 16:33 19:45 07:11 RBC 3.24 L (4.30-5.90) m/uL Hgb 9.1 L (13.0-17.5) gm/dL Hct 28.6 L (39.0-53.0) % RDW 16.7 H (11.5-15.5) % Retic Count (0.5-2.0) % Glucose (74-99) mg/dL POC Glucose (mg/dL) 159 H 146 H (70-110) mg/dL Calcium (8.4-10.2) mg/dL Alkaline Phosphatase (38-126) U/L Albumin (3.5-5.0) g/dL 04/30/22 04/30/22 04/30/22 Range/Units 07:11 10:47 11:28 RBC (4.30-5.90) m/uL Hgb (13.0-17.5) gm/dL Hct (39.0-53.0) % RDW (11.5-15.5) % Retic Count 3.4 H (0.5-2.0) % Glucose 109 H (74-99) mg/dL POC Glucose (mg/dL) 208 H (70-110) mg/dL Calcium 8.1 L (8.4-10.2) mg/dL Alkaline Phosphatase 134 H (38-126) U/L Albumin 3.0 L (3.5-5.0) g/dL Microbiology - Last 24 Hours (Table) 04/28/22 07:33 Blood Culture - Preliminary Blood No Growth after 48 hours Chest x-ray: report reviewed CT scan - chest: report reviewed Assessment and Plan (1) Anemia Status: Acute Priority: High Code(s): D64.9 - ANEMIA, UNSPECIFIED SNOMED Code(s): 166206348 Plan: Anemia: -Anemia noted since 2020, baseline Hgb in the 10-11 range. Pt reporting anemia for long time -Progressive anemia this admit. Received 2 units PRBCs. Hgb stable today at 9.1 -Stool occult positive. EGD/colonoscopy performed, negative for acute bleeding, antrum biopsy obtained due to mild inflammation, path pending -Abx treatment for right foot wound, will be sent home on IV abx via PICC line -Pt being discharged today. F/U with Dr. Edouard in clinic for further work up. Pt requested appt for 3 weeks form now. F/U info written on pt already printed discharge instructions. -Suspect that progressive anemia is r/t current infection, inflammation and wound. Mild anemia that has been present since 2020. Anemia work up ordered but, this will be resulted after DC. Will get results to office chart and additional work up will be ordered when pt seen Time with Patient: Greater than 30 (Reviewed 9 days of labs and reports)
[2022-05-04 06:47] LABS: Methylmalonic Acid 1.4 umol/L (<0.40)
== END 2022-04-30 14:59 | disposition home health service (06) | DRG 264 ==
LOC: EC 12:59 → 3SCARD 20:11
PROVIDERS: ADMIT Family Medicine; ATTEND Family Medicine
PROC: 0JBQ0ZZ Excision of Right Foot Subcutaneous Tissue and Fascia, Open Approach (ICD-10-PCS; principal; 2022-04-24)
PROC: 30233N1 Transfusion of Nonautologous Red Blood Cells into Peripheral Vein, Percutaneous Approach (ICD-10-PCS; 2022-04-25)
PROC: 0DB78ZX Excision of Stomach, Pylorus, Via Natural or Artificial Opening Endoscopic, Diagnostic (ICD-10-PCS; 2022-04-29 10:25)
PROC: 0DJD8ZZ Inspection of Lower Intestinal Tract, Via Natural or Artificial Opening Endoscopic (ICD-10-PCS; 2022-04-29 10:25)
PROC: 02HV33Z Insertion of Infusion Device into Superior Vena Cava, Percutaneous Approach (ICD-10-PCS; 2022-04-30)
DX: I21.4 Non-ST elevation (NSTEMI) myocardial infarction (principal); J96.01 Acute respiratory failure with hypoxia; J10.08 Influenza due to other identified influenza virus with other specified pneumonia; J18.9 Pneumonia, unspecified organism; R78.81 Bacteremia; I47.1 Supraventricular tachycardia; I50.32 Chronic diastolic (congestive) heart failure; I27.21 Secondary pulmonary arterial hypertension; E11.51 Type 2 diabetes mellitus with diabetic peripheral angiopathy without gangrene; I11.0 Hypertensive heart disease with heart failure; J43.9 Emphysema, unspecified; I25.119 Atherosclerotic heart disease of native coronary artery with unspecified angina pectoris; Z20.822 Contact with and (suspected) exposure to COVID-19; B95.61 Methicillin susceptible Staphylococcus aureus infection as the cause of diseases classified elsewhere; E78.5 Hyperlipidemia, unspecified; I08.0 Rheumatic disorders of both mitral and aortic valves; I65.22 Occlusion and stenosis of left carotid artery; K57.30 Diverticulosis of large intestine without perforation or abscess without bleeding; K29.70 Gastritis, unspecified, without bleeding; D50.9 Iron deficiency anemia, unspecified; I44.0 Atrioventricular block, first degree; Z79.82 Long term (current) use of aspirin; Z79.84 Long term (current) use of oral hypoglycemic drugs; Z79.899 Other long term (current) drug therapy; Z87.891 Personal history of nicotine dependence; Z98.61 Coronary angioplasty status; E11.621 Type 2 diabetes mellitus with foot ulcer; L97.529 Non-pressure chronic ulcer of other part of left foot with unspecified severity; L97.519 Non-pressure chronic ulcer of other part of right foot with unspecified severity; M54.9 Dorsalgia, unspecified; L08.9 Local infection of the skin and subcutaneous tissue, unspecified
CPT/HCPCS: 36415; 36573; 43239; 45378; 71046; 71275; 80048; 80053; 80061; 82272; 82525; 82565; 82607; 82728; 82747; 83036; 83540; 83550; 83690; 83735; 83880; 83921; 84484; 85025; 85027; 85045; 85379; 85610; 85652; 85730; 86140; 86850; 86900; 86901; 86920; 87040; 87070; 87075; 87077; 87186; 87205; 87636; 88305; 88342; 93005; 93308; 94760; 96365; 96366; 96367; 96368; 96375; 99285

== ENCOUNTER 2022-05-25 07:06 | Inpatient (IN) | payer MEDICARE ==
[2022-05-21 09:32] VITALS: BMI 27.6
[~2022-05-25 07:06] MED LIST changes: +ALPRAZolam 0.25 MG TAB PO PRN; +ALPRAZolam 0.5 MG TAB PO PRN; +ASPIRIN 325 MG TAB PO STA; -LACTATED RINGERS 1,000 ML IV SCH; +NITROGLYCERIN SL TABS 0.4 MG TAB SUBLINGUAL PRN
[2022-05-25] MEDS ORDERED: SODIUM CHLORIDE 0.9% 1,000 ML IV ONE ×2 (07:25→07:30)
[2022-05-25 09:43] LABS: African American GFR (CKD) >90 (>60 ml/min/1.73 sqM); Anion Gap 7 mmol/L; Anisocytosis Slight; Basophils % (A) 0 %; Blood Urea Nitrogen 20 mg/dL (9-20); Calcium 8.3 mg/dL (8.4-10.2); Carbon Dioxide 24 mmol/L (22-30); Chloride 108 mmol/L (98-107); Eosinophils # (A) 0.1 k/uL (0-0.7); Eosinophils % (A) 2 %; Glucose 124 mg/dL (74-99); HCT 25.4 % (39.0-53.0); HGB 7.6 gm/dL (13.0-17.5); Hypochromasia Moderate; Lymphocytes # (A) 0.9 k/uL (1.0-4.8); Lymphocytes % (A) 23 %; MCH 26.8 pg (25.0-35.0); MCHC 30.1 g/dL (31.0-37.0); Mean Platelet Volume 8.1; Monocytes # (A) 0.3 k/uL (0-1.0); Monocytes % (A) 8 %; Neutrophils # (A) 2.5 k/uL (1.3-7.7); Neutrophils % (A) 63 %; Non-African American GFR(CKD) 85 (>60 ml/min/1.73 sqM); Platelet Count 353 k/uL (150-450); Potassium 4.3 mmol/L (3.5-5.1); RBC 2.85 m/uL (4.30-5.90); RDW 16.9 % (11.5-15.5); Sodium 139 mmol/L (137-145); WBC 3.9 k/uL (3.8-10.6)
[2022-05-25 09:44] LABS: MCV 89.2 fL (80.0-100.0)
[2022-05-25] MEDS ORDERED: NITROGLYCERIN SL TABS 0.4 MG TAB SUBLINGUAL PRN (11:05)
[2022-05-25] MEDS: metroNIDAZOLE 500 MG TAB PO SCH ×2 (16:21→21:30)
[2022-05-25] MEDS: SODIUM CHLORIDE 0.9% 1,000 ML in EMPTY BAG 1 BAG IV SCH ×2 (17:05→17:44)
[2022-05-25 17:22] LABS: Glucose,Whole Blood 116 mg/dL (70-110)
[2022-05-25 19:41] LABS: Glucose,Whole Blood 181 mg/dL (70-110)
[2022-05-25] MEDS: ATORVASTATIN 40 MG TAB PO SCH ×2 (21:23→21:26)
[2022-05-25] MEDS: RANOLAZINE 500 MG TAB.ER.12H PO SCH (21:23)
[2022-05-26] MEDS: SODIUM CHLORIDE 0.9% 1,000 ML in EMPTY BAG 1 BAG IV SCH ×2 (06:00→08:58)
[2022-05-26 06:02] LABS: Glucose,Whole Blood 138 mg/dL (70-110)
[2022-05-26 07:51] LABS: Anisocytosis Slight; Basophils % (A) 1 %; Eosinophils # (A) 0.1 k/uL (0-0.7); Eosinophils % (A) 2 %; HCT 29.5 % (39.0-53.0); HGB 8.9 gm/dL (13.0-17.5); Hypochromasia Marked; Lymphocytes # (A) 0.8 k/uL (1.0-4.8); Lymphocytes % (A) 19 %; MCH 27.3 pg (25.0-35.0); MCHC 30.1 g/dL (31.0-37.0); MCV 90.7 fL (80.0-100.0); Mean Platelet Volume 7.3; Monocytes # (A) 0.3 k/uL (0-1.0); Monocytes % (A) 6 %; Neutrophils # (A) 3.1 k/uL (1.3-7.7); Neutrophils % (A) 71 %; Platelet Count 357 k/uL (150-450); Poikilocytosis Moderate; RBC 3.25 m/uL (4.30-5.90); RDW 16.9 % (11.5-15.5); WBC 4.4 k/uL (3.8-10.6)
[2022-05-26] MEDS: PIOGLITAZONE 30 MG TAB PO SCH (08:32)
[2022-05-26] MEDS: ISOSORBIDE MONONITRATE ER 30 MG TAB.ER.24H PO SCH (08:48)
[2022-05-26] MEDS: RANOLAZINE 500 MG TAB.ER.12H PO SCH ×2 (08:48→20:56)
[2022-05-26] MEDS: ASPIRIN 81 MG PO SCH (08:48)
[2022-05-26] MEDS: metroNIDAZOLE 500 MG TAB PO SCH ×3 (08:48→20:56)
[2022-05-26] MEDS: MULTIVITAMINS, THERA 1 EACH TAB PO SCH (08:48)
[2022-05-26] MEDS: METOPROLOL SUCCINATE (ER) 25 MG TAB.ER.24H PO SCH (08:48)
[2022-05-26] MEDS: lisinopriL 5 MG TAB PO SCH (08:48)
[2022-05-26] MEDS: FERROUS SULFATE 325 MG TAB PO SCH (08:48)
[2022-05-26] MEDS: CHOLECALCIFEROL 25 MCG (1000 IU) TABLET PO SCH (08:48)
--- NOTE | 2022-05-26 10:24 | P.PN ---
Progress Note - Text Progress Note Date: 05/26/22 Patient is a pleasant 76-year-old gentleman with coronary artery disease and known severe 2 vessel CAD involving the RCA and LCx as well as hypertension and dyslipidemia and chronic anemia was seen in the office recently. He remains asymptomatic in terms of chest discomfort and shortness of breath with exertion. We did not pursue any further coronary intervention weeks ago because of severe anemia and workup for anemia. He underwent an upper and lower endoscopy and both came in to be unremarkable for bleeding. Subsequently the patient was seen by the hematology service and he was diagnosed with vitamin B12 deficiency. He was brought yesterday to undergo PTCA of the RCA and LCx. He was found to be anemic the day before with a hemoglobin of 6.7 but the repeated hemoglobin yesterday was 7.6. We gave the patient one unit of packed RBC in anticipation for PCI. Subsequently I spoke with his quality assurance nurse who stated that the patient potentially has some source of bleeding and his hemoglobin being too low and fluctuating likeness, be explained by the vitamin B12 deficiency alone. For that reason I canceled the procedure and consulted GI to see him again.
[2022-05-26 11:32] LABS: Glucose,Whole Blood 221 mg/dL (70-110)
[2022-05-26] MEDS ORDERED: PEG 3350 (236 GM/BTL) + LYTES 4,000 ML BOTTLE PO ONE (12:58)
[2022-05-26] MEDS ORDERED: MAGNESIUM HYDROXIDE 2,400 MG/10 ML CUP PO ONE (12:58)
[2022-05-26] MEDS ORDERED: LACTULOSE 20 GM/30 ML CUP PO ONE (12:58)
--- NOTE | 2022-05-26 16:34 | P.GSCN ---
History of Present Illness Consult date: 05/26/22 History of present illness: CHIEF COMPLAINT: Anemia HISTORY OF PRESENT ILLNESS: This is a 76-year-old male with a known history of coronary disease requiring a heart catheterization. Apparently patient was to undergo a heart catheterization however his hemoglobin dropped to 6.9. He did receive a unit of blood and hemoglobin has come up to 7.6. Procedure was cancel ed due to the anemia. Patient had recent hospitalization with anemia and underwent EGD and colonoscopy on 04/29/2022 had shown antral gastritis and diverticulosis with no active bleeding. Patient's colonoscopy was a poor bowel prep. He was seen by hematology at that time and was found to have vitamin B-12 deficiency. Discussed case with cardiology today who also discussed with hematology and would like further investigation to rule out a definite GI bleed since the colonoscopy had poor bowel prep. Patient does report his stools have been black but he has been on iron. He reports feeling very tired. He denies any abdominal pain. Denies any nausea or vomiting. PAST MEDICAL HISTORY: See list. PAST SURGICAL HISTORY: See list. MEDICATIONS: See list. ALLERGIES: See list. SOCIAL HISTORY: No illicit drug use. REVIEW OF SYSTEMS: CONSTITUTIONAL: Denies fever or chills. HEENT: Denies blurred vision, vision changes, or eye pain. Denies hemoptysis ENDOCRINE: Denies heat or cold intolerance. CARDIOVASCULAR: Denies chest pain or pressure. RESPIRATORY: No shortness of breath. GASTROINTESTINAL: Denies abdominal pain. Denies nausea or vomiting. NEURO: Denies history of seizures. PSYCH: No depression or suicidal ideation HEMATOLOGIC: Denies bleeding disorders. LYMPHATIC: The patient denies any lumps and bumps around the neck. GENITOURINARY: Denies any blood in urine or increased urinary frequency. MUSCULOSKELETAL: Denies myalgias. Denies joint swelling. Denies decreased range of motion beyond patients baseline. SKIN: Denies pruitis. Denies rash. PHYSICAL EXAM: VITAL SIGNS: Reviewed GENERAL: Well-developed in no acute distress. HEENT: No sclera icterus. Extraocular movements grossly intact. Moist buccal mucosa. Head is atraumatic, normocephalic. Hears conversational speech. No nasal drainage. NECK: Supple without lymphadenopathy. CHEST: Non-labored respirations and equal bilateral excursions. CARDIOVASCULAR: Palpable 2+ radial pulses. ABDOMEN: Soft. Nondistended. Nontender MUSCULOSKELETAL: No clubbing or cyanosis. NEUROLOGIC: No focal or lateralizing signs. Cranial nerves II through XII grossly intact. PSYCH: Appropriate affect. Alert and oriented to person, place and time. SKIN: Well perfused. Good skin turgor. LABORATORY DATA: WBC 4.4 hemoglobin 8.9 platelets 357 Sodium 139 potassium 4.3 creatinine 0.81 IMAGING: ASSESSMENT: 1. Normocytic anemia 2. History of vitamin B12 deficiency 3. Recent EGD and colonoscopy in April showing gastritis and diverticulosis with a poor colon bowel prep PLAN: -Patient scheduled for colonoscopy tomorrow with Dr. Izquierdo -Start GoLYTELY bowel prep today with lactulose and milk of magnesia -Start clear liquid diet -Nothing by mouth after midnight -Continue to monitor for any signs or symptoms of bleeding -Repeat labs in AM Physician Research Technologist note has been reviewed by physician. Signing provider agrees with the documented findings, assessment, and plan of care. 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 History of Any Multi-Drug Resistant Organisms: None Reported Additional Past Surgical History / Comment(s): Hemorrhoidectomy about 40 years ago, colonoscopy, egd, skin cancer., stent left leg, varicose veins removed, heart cath aborted due to low hgb., debridement right foot callus. EGD/colonoscopy last admission negative for any type of bleed per patient, PICC line Past Anesthesia/Blood Transfusion Reactions: No Reported Reaction Additional Past Anesthesia/Blood Transfusion Reaction / Comm: Pt had no reaction to blood transfusions and has had multiple in the past. Past Psychological History: No Psychological Hx Reported Smoking Status: Former smoker Past Alcohol Use History: Occasional Additional Past Alcohol Use History / Comment(s): Smoked for 50 years, quit 10 years ago per patient. Past Drug Use History: None Reported - Past Family History Father Family Medical History: Cancer Mother Family Medical History: Cancer Medications and Allergies Home Medications Medication Instructions Recorded Confirmed Type Atorvastatin [Lipitor] 40 mg PO HS 08/12/20 05/25/22 History Pioglitazone [Actos] 30 mg PO DAILY 08/12/20 05/25/22 History lisinopriL [Zestril] 5 mg PO DAILY 08/12/20 05/25/22 History Cholecalciferol [Vitamin D3 (25 50 mcg PO DAILY 04/08/22 05/25/22 History Mcg = 1000 Iu)] Ferrous Sulfate [Feosol] 325 mg PO MOWEFR 04/08/22 05/25/22 History Multivit-Min/FA/Lycopen/Lutein 1 tab PO DAILY 04/08/22 05/25/22 History [Centrum Silver Men Tablet] Nitroglycerin Sl Tabs [Nitrostat] 0.4 mg SUBLINGUAL Q5M PRN 04/08/22 05/21/22 History Isosorbide Mononitrate ER [Imdur] 30 mg PO DAILY 30 Days #30 tab 04/11/22 05/25/22 Rx Metoprolol Succinate (ER) [Toprol 25 mg PO DAILY 30 Days #30 tab 04/11/22 Rx XL] Ranolazine [Ranexa] 500 mg PO Q12HR 30 Days #60 tab 04/11/22 05/21/22 Rx metroNIDAZOLE [Flagyl] 500 mg PO TID #90 tab 04/30/22 05/25/22 Rx Aspirin [Adult Low Dose Aspirin EC] 81 mg PO DAILY 05/21/22 05/25/22 History ceFAZolin [Kefzol] 1,000 mg IVPB Q8HR 05/21/22 05/25/22 History Allergies Allergy/AdvReac Type Severity Reaction Status Date / Time No Known Allergies Allergy Verified 05/21/22 08:22 Surgical - Exam Vital Signs Temp Pulse Resp BP Pulse Ox 97.1 F L 73 16 157/70 100 05/25/22 07:49 05/25/22 07:49 05/25/22 07:49 05/25/22 07:49 05/25/22 07:49 Results - Labs 05/26/22 06:35 05/25/22 07:27 Abnormal Lab Results - Last 24 Hours (Table) 05/25/22 05/25/22 05/25/22 Range/Units 10:41 17:21 19:39 RBC (4.30-5.90) m/uL Hgb (13.0-17.5) gm/dL Hct (39.0-53.0) % MCHC (31.0-37.0) g/dL RDW (11.5-15.5) % Lymphocytes # (1.0-4.8) k/uL POC Glucose (mg/dL) 116 H 181 H (70-110) mg/dL Crossmatch See Detail 05/26/22 05/26/22 Range/Units 06:00 06:35 RBC 3.25 L (4.30-5.90) m/uL Hgb 8.9 L (13.0-17.5) gm/dL Hct 29.5 L (39.0-53.0) % MCHC 30.1 L (31.0-37.0) g/dL RDW 16.9 H (11.5-15.5) % Lymphocytes # 0.8 L (1.0-4.8) k/uL POC Glucose (mg/dL) 138 H (70-110) mg/dL Crossmatch
[2022-05-26 16:47] LABS: Glucose,Whole Blood 103 mg/dL (70-110)
[2022-05-26 20:11] LABS: Glucose,Whole Blood 141 mg/dL (70-110)
[2022-05-26] MEDS: ATORVASTATIN 40 MG TAB PO SCH (20:56)
[2022-05-27] MEDS: SODIUM CHLORIDE 0.9% 1,000 ML in EMPTY BAG 1 BAG IV SCH ×2 (05:06→17:33)
[2022-05-27 05:57] LABS: Glucose,Whole Blood 124 mg/dL (70-110)
[2022-05-27 08:10] LABS: Anisocytosis Slight; HCT 27.8 % (39.0-53.0); HGB 8.7 gm/dL (13.0-17.5); Hypochromasia Moderate; MCH 27.7 pg (25.0-35.0); MCHC 31.3 g/dL (31.0-37.0); MCV 88.7 fL (80.0-100.0); Mean Platelet Volume 7.1; Platelet Count 317 k/uL (150-450); Poikilocytosis Slight; RBC 3.14 m/uL (4.30-5.90); RDW 16.5 % (11.5-15.5); WBC 3.9 k/uL (3.8-10.6)
[2022-05-27 08:26] LABS: African American GFR (CKD) >90 (>60 ml/min/1.73 sqM); Anion Gap 6 mmol/L; Blood Urea Nitrogen 13 mg/dL (9-20); Calcium 8.1 mg/dL (8.4-10.2); Carbon Dioxide 27 mmol/L (22-30); Chloride 107 mmol/L (98-107); Glucose 100 mg/dL (74-99); Non-African American GFR(CKD) 84 (>60 ml/min/1.73 sqM); Potassium 3.6 mmol/L (3.5-5.1); Sodium 140 mmol/L (137-145)
--- NOTE | 2022-05-27 08:51 | P.PN ---
Subjective Progress Note Date: 05/27/22 Principal diagnosis: Anemia This is a 76-year-old male who was originally admitted for a heart catheterization. However the procedure was canceled after hemoglobin dropped to 6.9. He did receive a unit of blood and hemoglobin today is 8.7. Dr. Izquierdo has been consulted and a colonoscopy is planned for today. Patient reports bowel prep last night went well. He denies any current complaints this morning. Objective - Vital Signs Vital signs: Vital Signs Temp 98.1 F 05/26/22 20:00 Pulse 80 05/27/22 04:00 Resp 16 05/27/22 04:00 BP 140/72 05/27/22 04:00 Pulse Ox 98 05/27/22 04:00 FiO2 Intake & Output 05/26/22 05/27/22 05/27/22 18:59 06:59 18:59 Intake Total 358 Balance 358 Intake: Oral 358 Other: Voiding Method Toilet Toilet Urinal Urinal # Voids 2 # Bowel Movements 2 3 - Constitutional General appearance: Present: cooperative. Absent: no acute distress - EENT Eyes: Present: EOMI, PERRLA - Neck Neck: Present: normal ROM. Absent: rigidity - Respiratory Respiratory: bilateral: CTA - Cardiovascular Rhythm: regular Heart sounds: normal: S1, S2 - Gastrointestinal General gastrointestinal: Present: soft. Absent: tenderness - Integumentary Integumentary: Present: normal, normal turgor - Psychiatric Psychiatric: Present: A&O x's 3, appropriate affect, intact judgment & insight - Labs CBC & Chem 7: 05/27/22 07:14 05/27/22 07:14 Labs: Abnormal Lab Results - Last 24 Hours (Table) 05/26/22 05/26/22 05/27/22 Range/Units 11:31 20:10 05:55 RBC (4.30-5.90) m/uL Hgb (13.0-17.5) gm/dL Hct (39.0-53.0) % RDW (11.5-15.5) % Glucose (74-99) mg/dL POC Glucose (mg/dL) 221 H 141 H 124 H (70-110) mg/dL Calcium (8.4-10.2) mg/dL 05/27/22 05/27/22 Range/Units 07:14 07:14 RBC 3.14 L (4.30-5.90) m/uL Hgb 8.7 L (13.0-17.5) gm/dL Hct 27.8 L (39.0-53.0) % RDW 16.5 H (11.5-15.5) % Glucose 100 H (74-99) mg/dL POC Glucose (mg/dL) (70-110) mg/dL Calcium 8.1 L (8.4-10.2) mg/dL Assessment and Plan (1) Anemia Current Visit: No Status: Acute Priority: High Code(s): D64.9 - ANEMIA, UNSPECIFIED SNOMED Code(s): 963716034 (2) CAD (coronary artery disease) Current Visit: No Status: Acute Code(s): I25.10 - ATHSCL HEART DISEASE OF [place] CORONARY ARTERY W/O ANG PCTRS SNOMED Code(s): 33044735 (3) Diabetes Current Visit: No Status: Acute Code(s): E11.9 - TYPE 2 DIABETES MELLITUS WITHOUT COMPLICATIONS SNOMED Code(s): 40516997 (4) Hypertension Current Visit: No Status: Acute Code(s): I10 - ESSENTIAL (PRIMARY) HYPERTENSION SNOMED Code(s): 49621019 Plan: Colonoscopy ordered for today. Continue to monitor CBC. Patient seen and evaluated by nurse practitioner, physician in agreement with plan
[2022-05-27] MEDS: PIOGLITAZONE 30 MG TAB PO SCH (09:54)
--- NOTE | 2022-05-27 10:04 | P.PN ---
Progress Note - Text Progress Note Date: 05/27/22 The patient was seen and evaluated this morning. He remains asymptomatic from a cardiovascular standpoint of view. He remained hemodynamically stable. He was seen yesterday by the surgical service and the plan is to pursue colonoscopy later on today. Further recommendation to follow that. The hemoglobin this morning he remains a stable. We'll follow-up with the patient after colonoscopy and assess the need to proceed with PCI. Further recommendation to follow the colonoscopy
[2022-05-27] MEDS ORDERED: LIDOCAINE 2% INJ 20 MG/ML (2 ML VIAL) ONE (11:36)
[2022-05-27] MEDS ORDERED: PROPOFOL 10 MG/ML 20 ML VIAL IV ONE (11:36)
[2022-05-27] MEDS ORDERED: IV FLUID CONTINUATION 900 ML IV ONE (12:12)
[2022-05-27 12:30] LABS: Glucose,Whole Blood 115 mg/dL (70-110)
--- NOTE | 2022-05-27 12:34 | P.PCN ---
Date of Procedure: 05/27/22 Description of Procedure: PREOPERATIVE DIAGNOSIS: Acute blood loss anemia Gastrointestinal bleed Status post blood transfusions POSTOPERATIVE DIAGNOSIS: Acute and chronic gastric ulcer, antrum without active bleeding Gastritis Diaphragmatic hiatal hernia OPERATION: Esophagogastroduodenoscopy SURGEON: Linda Izquierdo MD ANESTHESIA: MAC. INDICATIONS: The patient is a 76-year-old female who presents with gastrointestinal bleeding and anemia. Benefits and risks of the procedure were described. Informed consent was obtained. DESCRIPTION: The patient was brought into the endoscopy suite and laid in the left lateral decubitus position. An Olympus gastroscope was passed along the posterior or opharynx down to the distal esophagus where the squamocolumnar junction was encountered at 38 cm from the incisors. The stomach was entered and no bile reflux was found. Additional findings are listed below. The first through third portion of the duodenum was examined and unremarkable. Retroflexion of the scope confirmed Hill grade 3 lower esophageal valve. The squamocolumnar junction demonstrated LA grade B erosive esophagitis. The stomach was desufflated. The patient tolerated the procedure well. FINDINGS: Squamocolumnar junction 38 cm from the incisors. Diaphragmatic hiatus at 38 cm. Hill grade 3 lower esophageal valve. LA grade B erosive esophagitis. Acute on chronic superficial gastric ulcer 6 mm along antrum without active bleeding RECOMMENDATIONS: 1. Recommend Carafate 3 times daily 2. Upper endoscopy as needed
--- NOTE | 2022-05-27 12:42 | P.PN ---
Progress Note - Text Progress Note Date: 05/26/22 Patient seen and evaluated. Recommend upper and lower endoscopy due to recurrent bleed.
--- NOTE | 2022-05-27 12:42 | P.PCN ---
Date of Procedure: 05/27/22 Description of Procedure: PREOPERATIVE DIAGNOSIS: Acute blood loss anemia status post transfusion Gastrointestinal bleeding POSTOPERATIVE DIAGNOSIS: Ascending colon polyp Mild to moderate sigmoid diverticulosis with pandiverticulosis Grade 4 internal hemorrhoids without recent ulceration and bleeding OPERATION: Colonoscopy to the cecum, ileocecal valve and appendiceal orifice SURGEON: Linda Izquierdo MD. ANESTHESIA: MAC. INDICATIONS: The patient is a 76-year-old male who presents with gastrointestinal bleeding and anemia, recurrent. He has prior's history of unsuccessful colonoscopy due to very poor prep Benefits and risks were described and informed consent was obtained. DESCRIPTION OF PROCEDURE: The patient had undergone milk of magnesia, lactulose 10 Golytely prep 2 L. The patient had been brought into the operating room and laid in the left lateral decubitus position. After adequate intravenous sedation, the rectum was examined with 2% lidocaine jelly. Large nonreducible grade 4 internal hemorrhoids without ulceration, recent inflammation was found. The rectal tone was within normal limits Olympus colonoscope was gently advanced to the cecum with clear visualization of the ileocecal valve including appendiceal orifice. The prep was good. Severe sigmoid diverticulosis w with pandiverticulosis as encountered without active bleeding. No active colonic bleeding was found. No intraluminal masses were identified within the colon. No evidence of focal colitis was found. Retroflexion of the scope demonstrated grade 4 internal hemorrhoids with recent inflammation. The colon was desufflated. The patient had tolerated the procedure well. Withdrawal time was over 6 minutes. FINDINGS: Aronchick preparation quality scale 2 (1-5) Internal hemorrhoids, grade 4 No thrombosed hemorrhoid identified. No arteriovenous malformations. Ascending 3 mm polyp identified without resection No focal colitis. RECOMMENDATIONS: 1. Diet as tolerated 2. Recommend 25-30 g of fiber for sigmoid diverticulosis Plan - Discharge Summary Discharge Rx Participant: No New Discharge Prescriptions: No Action Nitroglycerin Sl Tabs [Nitrostat] 0.4 mg SUBLINGUAL Q5M PRN PRN Reason: Chest Pain Cholecalciferol [Vitamin D3 (25 Mcg = 1000 Iu)] 50 mcg PO DAILY Multivit-Min/FA/Lycopen/Lutein [Centrum Silver Men Tablet] 1 tab PO DAILY Isosorbide Mononitrate ER [Imdur] 30 mg PO DAILY 30 Days #30 tab ceFAZolin [Kefzol] 1,000 mg IVPB Q8HR Pioglitazone [Actos] 30 mg PO DAILY Atorvastatin [Lipitor] 40 mg PO HS lisinopriL [Zestril] 5 mg PO DAILY Ferrous Sulfate [Feosol] 325 mg PO MOWEFR Ranolazine [Ranexa] 500 mg PO Q12HR 30 Days #60 tab Metoprolol Succinate (ER) [Toprol XL] 25 mg PO DAILY 30 Days #30 tab metroNIDAZOLE [Flagyl] 500 mg PO TID #90 tab Aspirin [Adult Low Dose Aspirin EC] 81 mg PO DAILY Discharge Medication List Atorvastatin [Lipitor] 40 mg PO HS 08/12/20 [History] Pioglitazone [Actos] 30 mg PO DAILY 08/12/20 [History] lisinopriL [Zestril] 5 mg PO DAILY 08/12/20 [History] Cholecalciferol [Vitamin D3 (25 Mcg = 1000 Iu)] 50 mcg PO DAILY 04/08/22 [History] Ferrous Sulfate [Feosol] 325 mg PO MOWEFR 04/08/22 [History] Multivit-Min/FA/Lycopen/Lutein [Centrum Silver Men Tablet] 1 tab PO DAILY 04/08/22 [History] Nitroglycerin Sl Tabs [Nitrostat] 0.4 mg SUBLINGUAL Q5M PRN 04/08/22 [History] Isosorbide Mononitrate ER [Imdur] 30 mg PO DAILY 30 Days #30 tab 04/11/22 [Rx] Metoprolol Succinate (ER) [Toprol XL] 25 mg PO DAILY 30 Days #30 tab 04/11/22 [Rx] Ranolazine [Ranexa] 500 mg PO Q12HR 30 Days #60 tab 04/11/22 [Rx] metroNIDAZOLE [Flagyl] 500 mg PO TID #90 tab 04/30/22 [Rx] Aspirin [Adult Low Dose Aspirin EC] 81 mg PO DAILY 05/21/22 [History] ceFAZolin [Kefzol] 1,000 mg IVPB Q8HR 05/21/22 [History] Follow up Appointment(s)/Referral(s): Amador Bedoya MD [STAFF PHYSICIAN] - 06/04/22 1:30 pm (APPOINTMENT IS ON AT 1:30 PM (PT HAD APPT ALREADY BEFORE CATH)) [facility], [NON-STAFF] -
[2022-05-27] MEDS: metroNIDAZOLE 500 MG TAB PO SCH (13:39)
[2022-05-27] MEDS: ISOSORBIDE MONONITRATE ER 30 MG TAB.ER.24H PO SCH (15:09)
[2022-05-27] MEDS: lisinopriL 5 MG TAB PO SCH (15:09)
[2022-05-27] MEDS: ASPIRIN 81 MG PO SCH (15:10)
[2022-05-27] MEDS: METOPROLOL SUCCINATE (ER) 25 MG TAB.ER.24H PO SCH (15:10)
[2022-05-27 16:20] LABS: Glucose,Whole Blood 193 mg/dL (70-110)
[2022-05-27] MEDS: RANOLAZINE 500 MG TAB.ER.12H PO SCH ×2 (17:13→20:28)
[2022-05-27] MEDS: CHOLECALCIFEROL 25 MCG (1000 IU) TABLET PO SCH (17:42)
[2022-05-27] MEDS: MULTIVITAMINS, THERA 1 EACH TAB PO SCH (17:42)
[2022-05-27] MEDS: SUCRALFATE 1 GM TAB PO SCH (17:42)
[2022-05-27 20:09] LABS: Glucose,Whole Blood 189 mg/dL (70-110)
[2022-05-27] MEDS: ATORVASTATIN 40 MG TAB PO SCH (20:29)
[2022-05-28] MEDS: SODIUM CHLORIDE 0.9% 1,000 ML in EMPTY BAG 1 BAG IV SCH (05:30)
[2022-05-28] MEDS: SUCRALFATE 1 GM TAB PO SCH ×3 (05:59→16:51)
[2022-05-28 06:12] LABS: Glucose,Whole Blood 116 mg/dL (70-110)
[2022-05-28] MEDS: CHOLECALCIFEROL 25 MCG (1000 IU) TABLET PO SCH (06:17)
[2022-05-28] MEDS: RANOLAZINE 500 MG TAB.ER.12H PO SCH ×2 (06:17→20:25)
[2022-05-28] MEDS: PIOGLITAZONE 30 MG TAB PO SCH (06:17)
[2022-05-28] MEDS: lisinopriL 5 MG TAB PO SCH (06:17)
[2022-05-28] MEDS: ISOSORBIDE MONONITRATE ER 30 MG TAB.ER.24H PO SCH (06:17)
[2022-05-28] MEDS: METOPROLOL SUCCINATE (ER) 25 MG TAB.ER.24H PO SCH (06:17)
[2022-05-28] MEDS: MULTIVITAMINS, THERA 1 EACH TAB PO SCH (06:17)
[2022-05-28] MEDS: FERROUS SULFATE 325 MG TAB PO SCH (06:28)
[2022-05-28 07:18] LABS: Anisocytosis Slight; Basophils % (A) 0 %; Eosinophils # (A) 0.1 k/uL (0-0.7); Eosinophils % (A) 2 %; HCT 27.9 % (39.0-53.0); HGB 8.4 gm/dL (13.0-17.5); Hypochromasia Marked; Lymphocytes % (A) 24 %; MCH 27.6 pg (25.0-35.0); Mean Platelet Volume 7.2; Monocytes # (A) 0.3 k/uL (0-1.0); Monocytes % (A) 7 %; Neutrophils # (A) 2.6 k/uL (1.3-7.7); Neutrophils % (A) 64 %; Platelet Count 297 k/uL (150-450); Poikilocytosis Slight; RBC 3.03 m/uL (4.30-5.90); RDW 16.6 % (11.5-15.5); WBC 4.1 k/uL (3.8-10.6)
[2022-05-28] MEDS ORDERED: ALPRAZolam 0.5 MG TAB PO PRN ×2 (07:40→13:22)
[2022-05-28] MEDS ORDERED: ALPRAZolam 0.25 MG TAB PO PRN ×2 (07:40→13:22)
[2022-05-28] MEDS ORDERED: ASPIRIN 325 MG TAB PO STA (07:40)
[2022-05-28] MEDS ORDERED: ATORVASTATIN 80 MG TAB PO STA (07:40)
[2022-05-28] MEDS ORDERED: NITROGLYCERIN SL TABS 0.4 MG TAB SUBLINGUAL PRN ×3 (07:40→13:22)
[2022-05-28] MEDS ORDERED: VERAPAMIL 2.5 MG/ML 2 ML AMP ONE (07:51)
[2022-05-28 07:52] LABS: African American GFR (CKD) >90 (>60 ml/min/1.73 sqM); Anion Gap 6 mmol/L; Blood Urea Nitrogen 14 mg/dL (9-20); Calcium 8.1 mg/dL (8.4-10.2); Carbon Dioxide 26 mmol/L (22-30); Chloride 108 mmol/L (98-107); Glucose 108 mg/dL (74-99); Non-African American GFR(CKD) 83 (>60 ml/min/1.73 sqM); Potassium 3.6 mmol/L (3.5-5.1); Sodium 140 mmol/L (137-145)
[2022-05-28] MEDS ORDERED: ASPIRIN 81 MG ONE (08:10)
[2022-05-28] MEDS ORDERED: HEPARIN SODIUM 1,000 UN/ML (10ML VL) ONE (08:11)
--- NOTE | 2022-05-28 08:19 | P.PN ---
Subjective Principal diagnosis: CAD with anemia This 68-year-old white male who is essentially postop colonoscopy with no significant findings of source of bleeding. No significant AV malformation. He is now cardiac cath is scheduled for today. Objective - Vital Signs Vital signs: Vital Signs Temp 97.5 F L 05/27/22 20:04 Pulse 82 05/28/22 04:00 Resp 16 05/28/22 04:00 BP 142/70 05/28/22 04:00 Pulse Ox 100 05/27/22 15:22 FiO2 Intake & Output 05/27/22 05/28/22 05/28/22 18:59 06:59 18:59 Intake Total 320 Balance 320 Intake: IV 200 Oral 120 Other: Voiding Method Toilet Toilet Urinal Urinal # Voids 1 - Constitutional General appearance: Present: average body habitus - Respiratory Respiratory: bilateral: CTA - Cardiovascular Rhythm: regular Heart sounds: normal: S1, S2 Abnormal Heart Sounds: Absent: S3 Gallop - Gastrointestinal General gastrointestinal: Present: soft. Absent: tenderness - Integumentary Integumentary: Absent: cellulitis - Labs CBC & Chem 7: 05/28/22 06:36 05/28/22 06:48 Labs: Abnormal Lab Results - Last 24 Hours (Table) 05/27/22 05/27/22 05/27/22 Range/Units 07:14 12:28 16:19 RBC (4.30-5.90) m/uL Hgb (13.0-17.5) gm/dL Hct (39.0-53.0) % MCHC (31.0-37.0) g/dL RDW (11.5-15.5) % Chloride (98-107) mmol/L Glucose 100 H (74-99) mg/dL POC Glucose (mg/dL) 115 H 193 H (70-110) mg/dL Calcium 8.1 L (8.4-10.2) mg/dL 05/27/22 05/28/22 05/28/22 Range/Units 20:07 06:10 06:36 RBC 3.03 L (4.30-5.90) m/uL Hgb 8.4 L (13.0-17.5) gm/dL Hct 27.9 L (39.0-53.0) % MCHC 30.0 L (31.0-37.0) g/dL RDW 16.6 H (11.5-15.5) % Chloride (98-107) mmol/L Glucose (74-99) mg/dL POC Glucose (mg/dL) 189 H 116 H (70-110) mg/dL Calcium (8.4-10.2) mg/dL 05/28/22 Range/Units 06:48 RBC (4.30-5.90) m/uL Hgb (13.0-17.5) gm/dL Hct (39.0-53.0) % MCHC (31.0-37.0) g/dL RDW (11.5-15.5) % Chloride 108 H (98-107) mmol/L Glucose 108 H (74-99) mg/dL POC Glucose (mg/dL) (70-110) mg/dL Calcium 8.1 L (8.4-10.2) mg/dL Assessment and Plan (1) Anemia Current Visit: No Status: Acute Priority: High Code(s): D64.9 - ANEMIA, UNSPECIFIED SNOMED Code(s): 663856090 (2) Angina at rest Current Visit: No Status: Acute Code(s): I20.8 - OTHER FORMS OF ANGINA [place] SNOMED Code(s): 491543341 (3) CAD (coronary artery disease) Current Visit: No Status: Acute Code(s): I25.10 - ATHSCL HEART DISEASE OF [place] CORONARY ARTERY W/O ANG PCTRS SNOMED Code(s): 39029016 (4) CHF (congestive heart failure) Current Visit: No Status: Acute Code(s): I50.9 - HEART FAILURE, UNSPECIFIED SNOMED Code(s): 31510783 (5) Diabetes Current Visit: No Status: Acute Code(s): E11.9 - TYPE 2 DIABETES MELLITUS WITHOUT COMPLICATIONS SNOMED Code(s): 38927141 Plan: Await cardiac cath results. Most likely PTCA today as well. Anemia of multifactorial with chronic disease been no source of GI bleeding at this time. Status post transfusion. Anticipate discharge in next 24 hours once the patient is cleared by cardiac
[2022-05-28] MEDS ORDERED: ASPIRIN 81 MG PO ONE (08:23)
[2022-05-28] MEDS ORDERED: MIDAZOLAM 2 MG/2 ML VIAL IVP ONE (08:23)
[2022-05-28] MEDS ORDERED: LIDOCAINE 1% INJ 10MG/ML (5 ML VIAL-PF) SQ ONE (08:24)
[2022-05-28] MEDS ORDERED: VERAPAMIL SYRINGE (5 MG/10 ML) INTRAARTER ONE (08:27)
[2022-05-28] MEDS ORDERED: IV FLUID CONTINUATION 1,000 ML IV ONE (08:27)
[2022-05-28] MEDS: HEPARIN SODIUM 1,000 UN/ML (10ML VL) IV ONE ×3 (08:35→09:24)
[2022-05-28] MEDS ORDERED: NITROGLYCERIN 1000MCG/10ML SYRINGE INTRACORON ONE (09:11)
[2022-05-28] MEDS ORDERED: IOPAMIDOL-370 125ML BTL INJ ONE ×3 (09:12)
[2022-05-28] MEDS ORDERED: CLOPIDOGREL 75 MG TAB ONE (09:16)
[2022-05-28] MEDS ORDERED: CLOPIDOGREL 75 MG TAB PO ONE (09:21)
[2022-05-28] MEDS ORDERED: MAG HYDROX/AL HYDROX/SIMETH 30 ML CUP PO PRN (09:26)
[2022-05-28] MEDS ORDERED: ATROPINE SULFATE 0.1 MG/ML 10ML SYRINGE IV PRN (09:26)
[2022-05-28] MEDS ORDERED: RX INFO: IV CONTRAST WAS GIVEN 1 EACH MISC MISCELLANE PRN (09:26)
[2022-05-28] MEDS ORDERED: ZOLPIDEM 5 MG TAB PO PRN (09:26)
[2022-05-28] MEDS ORDERED: SODIUM CHLORIDE 0.9% 1,000 ML in EMPTY BAG 1 BAG IV SCH (09:30)
--- NOTE | 2022-05-28 09:33 | P.PCN ---
Date of Procedure: 05/28/22 Operative Findings: CARDIAC CATHETERIZATION AND PERCUTANEOUS CORONARY INTERVENTION PERFORMING PHYSICIAN: Amador Bedoya MD, VI PROCEDURE PERFORMED: 1. Selective right and left coronary angiogram 2. Balloon angioplasty of the right coronary artery 3. Ultrasound-guided access of the right radial artery INDICATION: This is a 76-year-old gentleman with a past medical history significant for hypertension and dyslipidemia and coronary artery disease and known critical disease involving the right coronary artery and left circumflex was seen in the office recently for chest discomfort with exertion concerning for angina. He does have chronic anemia. He underwent a workup and gastrointestinal bleeding was ruled out and then he was diagnosed with vitamin B12 deficiency. He goes he continues to be symptomatic he was brought today to undergo an intervention. COMPLICATION: None APPROACH: Right radial artery LEVEL OF SEDATION: Moderate with the sedation time off 57 minutes PROCEDURE DESCRIPTION: After obtaining an informed consent the patient was brought to the cardiac catholic priest. The right radial artery was cannulated using micropuncture technique, the micropuncture wire passed easily then I placed a 6-Macedonian sheath. I gave the patient 2 mg of verapamil intra-arterial. Subsequently the patient initially 3000 use of heparin and intravenous an additional 2000 were given throughout the procedure. Selective right and left coronary angiogram performed using JR4 and JL 3.5 catheters. Then after that I did intervene on the right coronary artery SELECTIVE CORONARY ANGIOGRAM: The right coronary artery: Medium to large caliber vessel and a dominant vessel. The RCA is calcified. The RCA has severe disease in the proximal portion and critical disease in the midportion. Left main: Has mild disease only. Bifurcates into an LCx and LAD The left circumflex: Large caliber vessel and codominant vessel. The proximal LCx has a severe disease appeared to be in the range of 70% by the bifurcation of the large OM branch. The distal circumflex appeared to have an intermediate disease before it bifurcates into PDA and PLV branches. The left anterior descending artery: The proximal LAD appears to have mild disease only. The mid LAD has intermediate lesion appeared to be in the range of 40-50%. This is by the bifurcation of the large diagonal branch. HEMODYNAMICS: [] PCI OF THE RCA: Anticoagulation was initiated using heparin with continuous ACT monitoring. Subsequently I did engage the RCA using JR4 guiding catheter. I did wire it using a whisper wire. After that I did wire the RCA using a santos wire initially run-through wire but that was unsuccessful but subsequently I placed another whisper wire. Attempting advancing initially 2.0 mm balloon and subsequently 1.5 mm balloon and then 1 mm balloon was unsuccessful. Finally with adjunctive use of guide liner I was able to advance 1 mm balloon and then 1.5 mm balloon. Finally I was able to get stool millimeter balloon to the mid RCA were I did PTCA ballooning of the mid RCA. The proximal and mid RCA has a lesion did not open up using 2.0 mm balloon but I tried to advance 2.0 noncompliant balloon and that was unsuccessful as well. The balloon was not able to cross the lesion. At that point I decided to stop and bring the patient back to undergo an atherectomy to modify the artery. I did final angiogram which showed CÉSAR-3 flow with no flow-limiting dissection noted. The procedure was completed was no complication CONCLUSION: Critical disease involving the mid RCA which is extremely calcified and tortuous. We did balloon angioplasty with an inadequate angiographic results Severe disease involving the mid left circumflex coronary artery by the bifurcation of the large OM branch Intermediate disease involving the left anterior descending artery POSTPROCEDURE MANAGEMENT: #1 dual antiplatelet therapy aspirin and Plavix #2 aggressive cholesterol control #3 PCI with adjunctive use of atherectomy
[2022-05-28] MEDS: ASPIRIN 81 MG PO SCH (09:48)
[2022-05-28 11:43] LABS: Glucose,Whole Blood 132 mg/dL (70-110)
--- NOTE | 2022-05-28 13:16 | P.PN ---
Subjective Progress Note Date: 05/28/22 CHIEF COMPLAINT: GI bleed HISTORY OF PRESENT ILLNESS: Patient is status post EGD and colonoscopy with res ults showing ascending colon polyp, mild to moderate sigmoid diverticulosis with pandiverticulosis, grade 4 internal hemorrhoids without recent ulceration and bleeding. EGD had shown evidence of acute on chronic gastric ulcer. No active bleeding. Gastritis and diaphragmatic hiatal hernia. Patient is stable for heart catheterization and dual antiplatelet medication from surgical standpoint. Patient underwent heart catheterization today with balloon angioplasty. He was resting comfortably. Per nursing staff no abdominal pain or blood in the stools reported. No nausea or vomiting. Afebrile. WBC 4.1 hemoglobin 8.4 platelets 297 signs 140 potassium 3.6 creatinine 0.88 PHYSICAL EXAM: VITAL SIGNS: Reviewed GENERAL: Well-developed in no acute distress. HEENT: No sclera icterus. Extraocular movements grossly intact. Moist buccal mucosa. Head is atraumatic, normocephalic. Hears conversational speech. No nasal drainage. NECK: Supple without lymphadenopathy. CHEST: Non-labored respirations and equal bilateral excursions. CARDIOVASCULAR: Palpable 2+ radial pulses. ABDOMEN: Soft. Nondistended. Nontender. MUSCULOSKELETAL: No clubbing or cyanosis. NEUROLOGIC: No focal or lateralizing signs. Cranial nerves II through XII grossly intact. PSYCH: Appropriate affect. Alert and oriented to person, place and time. SKIN: Well perfused. Good skin turgor. ASSESSMENT: 1. Acute GI bleed and anemia 2. EGD showing acute on chronic gastric ulcer with no active bleeding, ga stritis and diaphragmatic hiatal hernia 3. Colonoscopy showing ascending colon polyp, mild to moderate sigmoid diverticulosis with pandiverticulosis, grade 4 internal hemorrhoids without bleeding 4. Coronary disease status post heart catheterization and balloon angioplasty PLAN: -Okay to start dual antiplatelet therapy from surgical standpoint -Continue Carafate and daily yogurt for gastric ulcer -Hold off on starting Protonix since it inhibits the absorption of the Plavix -Continue to monitor hemoglobin -Continue to monitor for any signs or symptoms of bleeding -Continue supportive care Physician Apartment Leasing Manager note has been reviewed by physician. Signing provider agrees with the documented findings, assessment, and plan of care. Objective - Vital Signs Vital signs: Vital Signs Temp 97.5 F L 05/28/22 12:11 Pulse 64 05/28/22 12:11 Resp 16 05/28/22 12:11 BP 152/79 05/28/22 12:11 Pulse Ox 97 05/28/22 12:11 FiO2 Intake & Output 05/27/22 05/28/22 05/28/22 18:59 06:59 18:59 Intake Total 320 845 Balance 320 845 Weight 86.183 kg Intake: IV 200 50 Intake, IV Titration 795 Amount Sodium Chloride 0.9% 1, 720 000 ml In Empty Bag 1 bag @ 1 ML/KG/HR 86.183 mls/ hr IV .[id number] COUNT INCLUDES THE [facility] Rx#: [id number] Sodium Chloride 0.9% 1, 75 000 ml In Empty Bag 1 bag @ 75 mls/hr IV .[id number] COUNT INCLUDES THE [facility] Rx#:[id number] Oral 120 Other: Voiding Method Toilet Toilet Urinal Urinal # Voids 1 - Labs CBC & Chem 7: 05/28/22 06:36 05/28/22 06:48 Labs: Abnormal Lab Results - Last 24 Hours (Table) 05/27/22 05/27/22 05/28/22 Range/Units 16:19 20:07 06:10 RBC (4.30-5.90) m/uL Hgb (13.0-17.5) gm/dL Hct (39.0-53.0) % MCHC (31.0-37.0) g/dL RDW (11.5-15.5) % Chloride (98-107) mmol/L Glucose (74-99) mg/dL POC Glucose (mg/dL) 193 H 189 H 116 H (70-110) mg/dL Calcium (8.4-10.2) mg/dL 05/28/22 05/28/22 05/28/22 Range/Units 06:36 06:48 11:34 RBC 3.03 L (4.30-5.90) m/uL Hgb 8.4 L (13.0-17.5) gm/dL Hct 27.9 L (39.0-53.0) % MCHC 30.0 L (31.0-37.0) g/dL RDW 16.6 H (11.5-15.5) % Chloride 108 H (98-107) mmol/L Glucose 108 H (74-99) mg/dL POC Glucose (mg/dL) 132 H (70-110) mg/dL Calcium 8.1 L (8.4-10.2) mg/dL
--- NOTE | 2022-05-28 16:27 | CDI ---
Documentation Clarification Form Date: 05/28/2022 4:06:32 PM From: Isabel Covarrubias RN CCDS Phone: [phone] Admit Date: 05/25/2022 10:56:00 AM Patient Name: Ayo Turner Visit Number: [id number] Discharge Date: ATTENTION: The Clinical Documentation Specialists (CDI) and [facility] Coding Staff appreciate your assistance in clarifying documentation. Please respond to the clarification below the line at the bottom and electronically sign. The CDI & [facility] Coding staff will review the response and follow-up if needed. Please note: Queries are made part of the Legal Health Record. If you have any questions, please contact the author of this message via ITS. Dr. Michael Lopez Your patient has the documented diagnosis of unspecified CHF 05/28, Medicine note. Additional information regarding the type, acuity of CHF is requested. History/Risk Factors: 76 year old male presents to [facility] for an elective heart catheterization. The patients Hemoglobin dropped and procedure was postponed. Medical History: CAD, Angina, DM, Hyperlipidemia, HTN and anemia. 05/26, Medicine progress note. Clinical Indicators: VS/Pulse OX: 05/25 B/P 157/70, HR 73, RR 16, Temp 97.1 F Oral; SpO2 100% room air Echocardiogram Results: 04/09 EF 55%. Normal biventricular dimension and systolic function. Moderate aortic stenosis. Mean gradient of 20mmHg. Mild mitral regurgitation. Treatment: 05/26 Imdur 30mg PO Daily; 05/26 Toporol Xl 25mg PO Daily; In your professional opinion, can you please clarify the acuity and type of CHF if known? [ ] Chronic Diastolic Heart Failure (preserved EF) [ ] Other, please specify [ x] Unable to determine (Template Last Revised: May 2020) MTDD
[2022-05-28 17:13] LABS: Glucose,Whole Blood 181 mg/dL (70-110)
[2022-05-28 20:19] LABS: Glucose,Whole Blood 239 mg/dL (70-110)
[2022-05-28] MEDS: ATORVASTATIN 40 MG TAB PO SCH (20:25)
[2022-05-29 06:23] LABS: Glucose,Whole Blood 131 mg/dL (70-110)
[2022-05-29] MEDS: SUCRALFATE 1 GM TAB PO SCH ×3 (06:32→17:09)
[2022-05-29] MEDS ORDERED: HEPARIN SODIUM,PORCINE 10,000 UNIT in SODIUM CHLORIDE 0.9% 1,000 ML IRRIGATION PRN ×4 (07:00)
[2022-05-29] MEDS ORDERED: HEPARIN SODIUM,PORCINE 2,500 UNIT in SODIUM CHLORIDE 0.9% 250 ML IRRIGATION PRN ×4 (07:00)
[2022-05-29 08:38] LABS: African American GFR (CKD) >90 (>60 ml/min/1.73 sqM); Non-African American GFR(CKD) 84 (>60 ml/min/1.73 sqM)
[2022-05-29] MEDS: CLOPIDOGREL 75 MG TAB PO SCH (09:24)
[2022-05-29] MEDS: METOPROLOL SUCCINATE (ER) 25 MG TAB.ER.24H PO SCH (09:25)
[2022-05-29] MEDS: ASPIRIN 81 MG PO SCH (09:25)
[2022-05-29] MEDS: lisinopriL 5 MG TAB PO SCH (09:25)
[2022-05-29] MEDS: CHOLECALCIFEROL 25 MCG (1000 IU) TABLET PO SCH (09:25)
[2022-05-29] MEDS: ISOSORBIDE MONONITRATE ER 30 MG TAB.ER.24H PO SCH (09:25)
[2022-05-29] MEDS: RANOLAZINE 500 MG TAB.ER.12H PO SCH ×2 (09:25→20:31)
[2022-05-29] MEDS: MULTIVITAMINS, THERA 1 EACH TAB PO SCH (09:26)
[2022-05-29] MEDS: PIOGLITAZONE 30 MG TAB PO SCH (09:30)
[2022-05-29 11:32] LABS: Glucose,Whole Blood 276 mg/dL (70-110)
--- NOTE | 2022-05-29 12:09 | P.PN ---
Subjective Progress Note Date: 05/29/22 The patient is a 76-year-old male who is currently admitted to the hospital after attempting to undergo PTCA of the RCA and left circumflex with Dr. Bedoya. On admission to the hospital he has found to be anemic and therefore underwent colonoscopy. On 05/28/2022 he underwent coronary angiogram with Dr. Stallings were attempted balloon angioplasty was performed on the RCA, however there was inadequate angiographic results. The patient will remain in the hospital for arthrectomy and PCI of the RCA on Tuesday. The patient states she's been feeling well. He's been resting in the recliner chair. No chest pain with ambulation around his room. No pain and his right radial site. GENERAL: Well-appearing, well-nourished and in no acute distress. NECK: Supple without JVD or thyromegaly. LUNGS: Breath sounds clear to auscultation bilaterally. Respiration equal and unlabored. No wheezes, rales or rhonchi. HEART: Regular rate and rhythm. Systolic ejection murmur. No rubs or gallops. S1 and S2 heard. EXTREMITIES: Normal range of motion, no edema. No clubbing or cyanosis. Peripheral pulses intact and strong. Right radial site clean dry and intact. TELEMETRY: Sinus rhythm overnight IMPRESSION: Multivessel coronary artery disease, severe disease of the RCA and left circumflex Chronic anemia Acute and chronic gastric ulcer, no active bleeding PLAN: Continue current medication regimen Nothing by mouth after midnight on Tuesday in preparation for PCI on Tuesday with Dr. Bedoya I am dictating on behalf of Dr John Jimenez's history/physical and assessment/plan. Objective - Vital Signs Vital signs: Vital Signs Temp 98.2 F 05/29/22 09:20 Pulse 73 05/29/22 09:20 Resp 16 05/29/22 09:20 BP 154/69 05/29/22 09:20 Pulse Ox 97 05/29/22 09:31 FiO2 Intake & Output 05/28/22 05/29/22 05/29/22 18:59 06:59 18:59 Intake Total 1445 850 193 Output Total 1500 Balance 1445 -650 193 Weight 86.183 kg 85.5 kg Intake: IV 50 600 Sodium Chloride 0.9% 1, 600 000 ml In Empty Bag 1 bag @ 75 mls/hr IV .[id number] [facility] Rx#:[id number] Intake, IV Titration 1395 75 Amount Sodium Chloride 0.9% 1, 720 000 ml In Empty Bag 1 bag @ 1 ML/KG/HR 86.183 mls/ hr IV .[id number] [facility] Rx#: [id number] Sodium Chloride 0.9% 1, 675 75 000 ml In Empty Bag 1 bag @ 75 mls/hr IV .[id number] [facility] Rx#:[id number] Oral 250 118 Output: Urine 1500 Other: Voiding Method Toilet Toilet # Voids 4 2 - Labs CBC & Chem 7: 05/28/22 06:36 05/29/22 08:10 Labs: Abnormal Lab Results - Last 24 Hours (Table) 05/28/22 05/28/22 05/29/22 Range/Units 17:01 20:18 06:21 POC Glucose (mg/dL) 181 H 239 H 131 H (70-110) mg/dL 05/29/22 Range/Units 11:30 POC Glucose (mg/dL) 276 H (70-110) mg/dL
--- NOTE | 2022-05-29 12:30 | US ---
EXAMINATION TYPE: US venous doppler duplex LE BI DATE OF EXAM: 05/29/2022 11:49 AM COMPARISON: NONE CLINICAL HISTORY: bilateral lower extremity edema. SIDE PERFORMED: Bilateral TECHNIQUE: The lower extremity deep venous system is examined utilizing real time linear array sonog sandra with graded compression, doppler sonography and color-flow sonography. VESSELS IMAGED: Common Femoral Vein Deep Femoral Vein Greater Saphenous Vein * Femoral Vein Popliteal Vein Small Saphenous Vein * Proximal Calf Veins (* superficial vessels) Right Leg: Negative for DVT Left Leg: Negative for DVT Grayscale, color doppler, spectral doppler imaging performed of the deep veins of the lower extremiti es. There is normal flow, compressibility, vascular waveforms. IMPRESSION: 1. No evidence of deep vein thrombosis of either lower externally. 2. Bilateral lower externally subcutaneous edema.
--- NOTE | 2022-05-29 15:54 | P.BASOAP ---
Subjective Progress Note Date: 05/29/22 Principal diagnosis: No abdominal pain. He is status post CABG. Family is at bedside. He has know Vitamin B-12 deficiency currently not treated. He has stomach ulcers. Will add yogurt to diet for ulcers and start Vitamin B-12 while inpatient for his anemia. All questions addressed. Objective - Vital Signs Vital signs: Vital Signs Temp 97.6 F 05/29/22 13:15 Pulse 62 05/29/22 13:15 Resp 18 05/29/22 13:15 BP 121/60 05/29/22 13:15 Pulse Ox 99 05/29/22 13:15 FiO2 Intake & Output 05/28/22 05/29/22 05/29/22 18:59 06:59 18:59 Intake Total 1445 850 311 Output Total 1500 Balance 1445 -650 311 Weight 86.183 kg 85.5 kg Intake: IV 50 600 Sodium Chloride 0.9% 1, 600 000 ml In Empty Bag 1 bag @ 75 mls/hr IV .[id number] [facility] Rx#:[id number] Intake, IV Titration 1395 75 Amount Sodium Chloride 0.9% 1, 720 000 ml In Empty Bag 1 bag @ 1 ML/KG/HR 86.183 mls/ hr IV .[id number] [facility] Rx#: [id number] Sodium Chloride 0.9% 1, 675 75 000 ml In Empty Bag 1 bag @ 75 mls/hr IV .[id number] [facility] Rx#:[id number] Oral 250 236 Output: Urine 1500 Other: Voiding Method Toilet Toilet # Voids 4 2 - Labs CBC & Chem 7: 05/28/22 06:36 05/29/22 08:10 Labs: Abnormal Lab Results - Last 24 Hours (Table) 05/28/22 05/28/22 05/29/22 Range/Units 17:01 20:18 06:21 POC Glucose (mg/dL) 181 H 239 H 131 H (70-110) mg/dL 05/29/22 Range/Units 11:30 POC Glucose (mg/dL) 276 H (70-110) mg/dL Assessment/Plan Plan: Date: 05/25/22 Initial Weight: Initial BMI: Current Weight: 85.5 kg Current BMI: 27.6 Type of Surgery: Total Volume in Band: Previous Volume: Volume Removed: Volume Added: Band Size:
[2022-05-29] MEDS ORDERED: CYANOCOBALAMIN 500 MCG TAB PO SCH (16:00)
--- NOTE | 2022-05-29 16:29 | P.PN ---
Progress Note - Text Progress Note Date: 05/29/22 The patient is a pleasant 76-year-old gentleman with coronary artery disease and known critical disease involving the left circumflex coronary artery. He was admitted to the hospital for an elective angioplasty. He underwent yesterday a heart catheterization and we could not balloon angioplasty the right coronary artery because he was severely calcified. The decision was made towards percutaneous coronary intervention this coming Tuesday with adjunctive use of atherectomy. May [id number] The patient was seen and evaluated this morning. He is asymptomatic. The hemoglobin is 8.3. The examination showed stable vital signs Cardiovascular examination revealed regular rhythm with a systolic murmur Respiratory examination shows clear breathing sounds bilaterally Extremities examination showed no pedal edema noted Plan Proceed with PCI with adjunctive use of atherectomy this coming Tuesday if the patient's hemoglobin remains stable
[2022-05-29] MEDS: CYANOCOBALAMIN 1,000 MCG/ML 1 ML VIAL IM SCH (17:09)
[2022-05-29 20:09] LABS: Glucose,Whole Blood 215 mg/dL (70-110)
[2022-05-29] MEDS: ATORVASTATIN 40 MG TAB PO SCH (20:31)
--- NOTE | 2022-05-30 03:06 | PN ---
PROGRESS NOTE DATE OF SERVICE: 05/29/2022 This is a 76-year-old gentleman, who was admitted with multivessel disease had attempted angioplasty. The patient is scheduled to have atherectomy and PCI of the RCA on Tuesday by Dr. Bedoya. The hemoglobin yesterday was 8.4. No chest pain. No palpitation. PHYSICAL EXAMINATION: VITAL SIGNS: Pulse is 62, blood pressure 110/60, respirations 18. CHEST: Clear to auscultation. ABDOMEN: Soft. NERVOUS SYSTEM: Nonfocal. LABORATORY DATA: Reviewed. ASSESSMENT: 1. Multivessel coronary disease for RCA PCI. 2. Chronic anemia. 3. Acute on chronic gastric ulcer, no active bleeding. 4. Multiple medications. RECOMMENDATIONS: Recommend to continue current management and repeat labs. Monitor blood sugars closely. Continue the rest of medications. Closely follow with Cardiology. Guarded prognosis. Further recommendations to follow. MMODL / IJN: [id number] /
[2022-05-30] MEDS: SUCRALFATE 1 GM TAB PO SCH ×3 (06:21→17:13)
[2022-05-30 06:24] LABS: Glucose,Whole Blood 126 mg/dL (70-110)
[2022-05-30 09:08] LABS: Anisocytosis Slight; Basophils % (A) 0 %; Eosinophils # (A) 0.1 k/uL (0-0.7); Eosinophils % (A) 1 %; HCT 28.1 % (39.0-53.0); HGB 8.8 gm/dL (13.0-17.5); Hypochromasia Marked; Lymphocytes % (A) 21 %; MCH 28.5 pg (25.0-35.0); MCHC 31.2 g/dL (31.0-37.0); MCV 91.5 fL (80.0-100.0); Monocytes # (A) 0.3 k/uL (0-1.0); Monocytes % (A) 6 %; Neutrophils # (A) 3.1 k/uL (1.3-7.7); Neutrophils % (A) 68 %; Platelet Count 283 k/uL (150-450); Poikilocytosis Slight; RBC 3.07 m/uL (4.30-5.90); RDW 17.1 % (11.5-15.5); WBC 4.5 k/uL (3.8-10.6)
[2022-05-30 09:36] LABS: ALT 14 U/L (4-49); AST 26 U/L (17-59); African American GFR (CKD) >90 (>60 ml/min/1.73 sqM); Albumin 2.9 g/dL (3.5-5.0); Alkaline Phosphatase 89 U/L (38-126); Anion Gap 7 mmol/L; Blood Urea Nitrogen 15 mg/dL (9-20); Calcium 8.1 mg/dL (8.4-10.2); Carbon Dioxide 24 mmol/L (22-30); Chloride 107 mmol/L (98-107); Glucose 164 mg/dL (74-99); Non-African American GFR(CKD) 83 (>60 ml/min/1.73 sqM); Potassium 3.6 mmol/L (3.5-5.1); Sodium 138 mmol/L (137-145); Total Bilirubin 0.3 mg/dL (0.2-1.3); Total Protein 6.2 g/dL (6.3-8.2)
[2022-05-30] MEDS: ISOSORBIDE MONONITRATE ER 30 MG TAB.ER.24H PO SCH (09:58)
[2022-05-30] MEDS: CLOPIDOGREL 75 MG TAB PO SCH (09:58)
[2022-05-30] MEDS: lisinopriL 5 MG TAB PO SCH (09:58)
[2022-05-30] MEDS: METOPROLOL SUCCINATE (ER) 25 MG TAB.ER.24H PO SCH (09:58)
[2022-05-30] MEDS: ASPIRIN 81 MG PO SCH (09:58)
[2022-05-30] MEDS: CHOLECALCIFEROL 25 MCG (1000 IU) TABLET PO SCH (09:58)
[2022-05-30] MEDS: PIOGLITAZONE 30 MG TAB PO SCH (09:58)
[2022-05-30] MEDS: RANOLAZINE 500 MG TAB.ER.12H PO SCH ×2 (09:58→20:17)
[2022-05-30] MEDS: MULTIVITAMINS, THERA 1 EACH TAB PO SCH (09:58)
[2022-05-30] MEDS: CYANOCOBALAMIN 1,000 MCG/ML 1 ML VIAL IM SCH (10:00)
[2022-05-30 11:51] LABS: Glucose,Whole Blood 191 mg/dL (70-110)
--- NOTE | 2022-05-30 13:01 | P.PN ---
Progress Note - Text Progress Note Date: 05/30/22 The patient was seen and evaluated today. He has been experiencing discomfort in the abdomen. The abdomen overall is soft on examination. I asked the nurse to contact the surgeon for the patient to be evaluated. His hemoglobin this morning is 8.8. He his vitals are stable. He is not experiencing any chest pain or chest discomfort at this point or any shortness of breath. No dizziness or lightheadedness and no feeling of heart racing or fluttering. Plan Continue the current medical regimen Continue monitor the hemoglobin on the basis Contact the surgeon to evaluate the patient for the abdominal discomfort Proceed with PCI with adjunctive use of atherectomy tomorrow morning
--- NOTE | 2022-05-30 16:23 | P.PN ---
Subjective Progress Note Date: 05/30/22 Patient had transient nausea and vomiting earlier today now completely resolved. With start of Vit B-12 injection, hemoglobin continues to improve. at bedside. Patient is assured that Vitamin B-12 injection. He is no longer nauseated. Transient abdominal pain is resolved. He has had no signs of bleedi ng. Patient is clear to undergo cardiac procedure with acceptable risks Will add Ensure for increased protein requirements for healing Continue Vitamin B-12 injections. Patient may opt to hold his treatment prior to his procedure. All questions addressed Zofran ordered as needed. Objective - Vital Signs Vital signs: Vital Signs Temp 97.5 F L 05/30/22 13:15 Pulse 71 05/30/22 13:15 Resp 16 05/30/22 13:15 BP 150/76 05/30/22 13:15 Pulse Ox 99 05/30/22 13:15 FiO2 Intake & Output 05/29/22 05/30/22 05/30/22 18:59 06:59 18:59 Intake Total 311 658 Output Total 600 425 Balance -289 233 Weight 85.8 kg Intake: Intake, IV Titration 75 Amount Sodium Chloride 0.9% 1, 75 000 ml In Empty Bag 1 bag @ 75 mls/hr IV .[id number] [facility] Rx#:[id number] Oral 236 658 Output: Urine 200 425 Emesis 400 Other: Voiding Method Toilet Toilet Toilet # Voids 2 # Bowel Movements 2 - Labs CBC & Chem 7: 05/30/22 08:47 05/30/22 08:47 Labs: Abnormal Lab Results - Last 24 Hours (Table) 05/29/22 05/30/22 05/30/22 Range/Units 20:07 06:23 08:47 RBC 3.07 L (4.30-5.90) m/uL Hgb 8.8 L (13.0-17.5) gm/dL Hct 28.1 L (39.0-53.0) % RDW 17.1 H (11.5-15.5) % Glucose (74-99) mg/dL POC Glucose (mg/dL) 215 H 126 H (70-110) mg/dL Calcium (8.4-10.2) mg/dL Total Protein (6.3-8.2) g/dL Albumin (3.5-5.0) g/dL 05/30/22 05/30/22 Range/Units 08:47 11:49 RBC (4.30-5.90) m/uL Hgb (13.0-17.5) gm/dL Hct (39.0-53.0) % RDW (11.5-15.5) % Glucose 164 H (74-99) mg/dL POC Glucose (mg/dL) 191 H (70-110) mg/dL Calcium 8.1 L (8.4-10.2) mg/dL Total Protein 6.2 L (6.3-8.2) g/dL Albumin 2.9 L (3.5-5.0) g/dL
[2022-05-30] MEDS ORDERED: ONDANSETRON 4 MG/2 ML VIAL IVP PRN (16:24)
[2022-05-30 16:39] LABS: Glucose,Whole Blood 179 mg/dL (70-110)
[2022-05-30] MEDS ORDERED: ACETAMINOPHEN TAB 325 MG TAB PO PRN (17:11)
[2022-05-30 20:15] LABS: Glucose,Whole Blood 174 mg/dL (70-110)
[2022-05-30] MEDS: ATORVASTATIN 40 MG TAB PO SCH (20:17)
[2022-05-30] MEDS: SODIUM CHLORIDE 0.9% 1,000 ML in EMPTY BAG 1 BAG IV SCH (21:29)
[2022-05-31] MEDS ORDERED: ASPIRIN 325 MG TAB PO ONE (05:00)
[2022-05-31] MEDS ORDERED: ATORVASTATIN 80 MG TAB PO ONE (05:00)
[2022-05-31] MEDS: SUCRALFATE 1 GM TAB PO SCH ×3 (05:45→16:02)
[2022-05-31 06:09] LABS: Glucose,Whole Blood 137 mg/dL (70-110)
[2022-05-31 06:28] LABS: Anisocytosis Slight; Basophils % (A) 0 %; Eosinophils # (A) 0.1 k/uL (0-0.7); Eosinophils % (A) 2 %; HCT 30.2 % (39.0-53.0); HGB 9.2 gm/dL (13.0-17.5); Hypochromasia Marked; Lymphocytes # (A) 0.9 k/uL (1.0-4.8); Lymphocytes % (A) 20 %; MCH 27.7 pg (25.0-35.0); MCHC 30.4 g/dL (31.0-37.0); MCV 91.2 fL (80.0-100.0); Monocytes # (A) 0.3 k/uL (0-1.0); Monocytes % (A) 7 %; Neutrophils # (A) 3.2 k/uL (1.3-7.7); Neutrophils % (A) 70 %; Platelet Count 328 k/uL (150-450); Poikilocytosis Slight; RBC 3.31 m/uL (4.30-5.90); RDW 17.3 % (11.5-15.5); WBC 4.6 k/uL (3.8-10.6)
[2022-05-31 06:53] LABS: African American GFR (CKD) >90 (>60 ml/min/1.73 sqM); Anion Gap 9 mmol/L; Blood Urea Nitrogen 17 mg/dL (9-20); Calcium 8.3 mg/dL (8.4-10.2); Carbon Dioxide 24 mmol/L (22-30); Chloride 106 mmol/L (98-107); Glucose 124 mg/dL (74-99); Non-African American GFR(CKD) 84 (>60 ml/min/1.73 sqM); Potassium 3.8 mmol/L (3.5-5.1); Sodium 139 mmol/L (137-145)
[2022-05-31] MEDS: CHOLECALCIFEROL 25 MCG (1000 IU) TABLET PO SCH (08:41)
[2022-05-31] MEDS: ISOSORBIDE MONONITRATE ER 30 MG TAB.ER.24H PO SCH (08:41)
[2022-05-31] MEDS: CLOPIDOGREL 75 MG TAB PO SCH (08:41)
[2022-05-31] MEDS: MULTIVITAMINS, THERA 1 EACH TAB PO SCH (08:42)
[2022-05-31] MEDS: ASPIRIN 81 MG PO SCH (08:42)
[2022-05-31] MEDS: RANOLAZINE 500 MG TAB.ER.12H PO SCH ×2 (08:42→20:48)
[2022-05-31] MEDS: lisinopriL 5 MG TAB PO SCH (08:42)
[2022-05-31] MEDS: METOPROLOL SUCCINATE (ER) 25 MG TAB.ER.24H PO SCH (08:42)
[2022-05-31] MEDS: CYANOCOBALAMIN 1,000 MCG/ML 1 ML VIAL IM SCH (08:44)
--- NOTE | 2022-05-31 08:44 | P.PN ---
Subjective Progress Note Date: 05/31/22 Principal diagnosis: Anemia This is a 76-year-old male who was originally admitted for a heart catheterization hemoglobin had dropped he did require 1 unit of blood. Hemoglobin was stable and he underwent a heart catheterization last , which showed critical disease involving the mid RCA which is calcified and balloon angioplasty gave inadequate angiographic results. Dr. Bedoya is planning for PCI this morning. Patient is seen sitting in the chair resting with no curr ent complaints. Hemoglobin is stable.. Objective - Vital Signs Vital signs: Vital Signs Temp 97.7 F 05/31/22 04:00 Pulse 76 05/31/22 04:00 Resp 16 05/31/22 04:00 BP 138/80 05/31/22 04:00 Pulse Ox 99 05/31/22 08:00 FiO2 Intake & Output 05/30/22 05/31/22 05/31/22 18:59 06:59 18:59 Intake Total 658 517.08 Output Total 425 Balance 233 517.08 Weight 86.1 kg Intake: Intake, IV Titration 517.08 Amount Sodium Chloride 0.9% 1, 517.08 000 ml In Empty Bag 1 bag @ 1 ML/KG/HR 86.183 mls/ hr IV .[id number] [facility] Rx#: [id number] Oral 658 Output: Urine 425 Other: Voiding Method Toilet Toilet - Constitutional General appearance: Present: cooperative. Absent: no acute distress - EENT Eyes: Present: EOMI, PERRLA - Neck Neck: Present: normal ROM. Absent: lymphadenopathy, rigidity - Respiratory Respiratory: bilateral: CTA - Cardiovascular Rhythm: regular Heart sounds: normal: S1, S2 - Gastrointestinal General gastrointestinal: Present: soft. Absent: tenderness - Integumentary Integumentary: Present: normal, normal turgor - Psychiatric Psychiatric: Present: A&O x's 3, appropriate affect, intact judgment & insight - Labs CBC & Chem 7: 05/31/22 05:53 05/31/22 05:53 Labs: Abnormal Lab Results - Last 24 Hours (Table) 05/30/22 05/30/22 05/30/22 Range/Units 08:47 08:47 11:49 RBC 3.07 L (4.30-5.90) m/uL Hgb 8.8 L (13.0-17.5) gm/dL Hct 28.1 L (39.0-53.0) % MCHC (31.0-37.0) g/dL RDW 17.1 H (11.5-15.5) % Lymphocytes # (1.0-4.8) k/uL Glucose 164 H (74-99) mg/dL POC Glucose (mg/dL) 191 H (70-110) mg/dL Calcium 8.1 L (8.4-10.2) mg/dL Total Protein 6.2 L (6.3-8.2) g/dL Albumin 2.9 L (3.5-5.0) g/dL 05/30/22 05/30/22 05/31/22 Range/Units 16:37 20:13 05:53 RBC 3.31 L (4.30-5.90) m/uL Hgb 9.2 L (13.0-17.5) gm/dL Hct 30.2 L (39.0-53.0) % MCHC 30.4 L (31.0-37.0) g/dL RDW 17.3 H (11.5-15.5) % Lymphocytes # 0.9 L (1.0-4.8) k/uL Glucose (74-99) mg/dL POC Glucose (mg/dL) 179 H 174 H (70-110) mg/dL Calcium (8.4-10.2) mg/dL Total Protein (6.3-8.2) g/dL Albumin (3.5-5.0) g/dL 05/31/22 05/31/22 Range/Units 05:53 06:07 RBC (4.30-5.90) m/uL Hgb (13.0-17.5) gm/dL Hct (39.0-53.0) % MCHC (31.0-37.0) g/dL RDW (11.5-15.5) % Lymphocytes # (1.0-4.8) k/uL Glucose 124 H (74-99) mg/dL POC Glucose (mg/dL) 137 H (70-110) mg/dL Calcium 8.3 L (8.4-10.2) mg/dL Total Protein (6.3-8.2) g/dL Albumin (3.5-5.0) g/dL Assessment and Plan (1) Anemia Current Visit: No Status: Acute Priority: High Code(s): D64.9 - ANEMIA, UNSPECIFIED SNOMED Code(s): 648114876 (2) CAD (coronary artery disease) Current Visit: No Status: Acute Code(s): I25.10 - ATHSCL HEART DISEASE OF [place] CORONARY ARTERY W/O ANG PCTRS SNOMED Code(s): 54577173 (3) Diabetes Current Visit: No Status: Acute Code(s): E11.9 - TYPE 2 DIABETES MELLITUS WITHOUT COMPLICATIONS SNOMED Code(s): 34571310 (4) Hypertension Current Visit: No Status: Acute Code(s): I10 - ESSENTIAL (PRIMARY) HYPERTENSION SNOMED Code(s): 03974838 Plan: Await results of PCI today with Dr. Bedoya Will continue to monitor Patient seen and evaluated by nurse practitioner, physician in agreement with plan
[2022-05-31] MEDS: FERROUS SULFATE 325 MG TAB PO SCH (08:47)
[2022-05-31] MEDS: PIOGLITAZONE 30 MG TAB PO SCH (08:50)
[2022-05-31] MEDS: SODIUM CHLORIDE 0.9% 1,000 ML in EMPTY BAG 1 BAG IV SCH ×2 (09:15→23:56)
--- NOTE | 2022-05-31 10:12 | P.PN ---
Subjective Progress Note Date: 05/31/22 CHIEF COMPLAINT: GI bleed HISTORY OF PRESENT ILLNESS: Patient is status post EGD and colonoscopy with res ults showing ascending colon polyp, mild to moderate sigmoid diverticulosis with pandiverticulosis, grade 4 internal hemorrhoids without recent ulceration and bleeding. EGD had shown evidence of acute on chronic gastric ulcer. No active bleeding. Gastritis and diaphragmatic hiatal hernia. Patient is scheduled for heart catheterization with PCI today with Dr. Bedoya. Patient denies any abdominal pain. Denies any nausea or vomiting. Afebrile. WBC 4.6 Hgb 8.8-9.2 platelets 328 sodium 139 potassium 3.8 creatinine 0.84 PHYSICAL EXAM: VITAL SIGNS: Reviewed GENERAL: Well-developed in no acute distress. HEENT: No sclera icterus. Extraocular movements grossly intact. Moist buccal mucosa. Head is atraumatic, normocephalic. Hears conversational speech. No nasal drainage. NECK: Supple without lymphadenopathy. CHEST: Non-labored respirations and equal bilateral excursions. CARDIOVASCULAR: Palpable 2+ radial pulses. ABDOMEN: Soft. Nondistended. Nontender. MUSCULOSKELETAL: No clubbing or cyanosis. NEUROLOGIC: No focal or lateralizing signs. Cranial nerves II through XII tiffany sly intact. PSYCH: Appropriate affect. Alert and oriented to person, place and time. SKIN: Well perfused. Good skin turgor. ASSESSMENT: 1. Acute GI bleed and anemia 2. EGD showing acute on chronic gastric ulcer with no active bleeding, gastritis and diaphragmatic hiatal hernia 3. Colonoscopy showing ascending colon polyp, mild to moderate sigmoid diverticulosis with pandiverticulosis, grade 4 internal hemorrhoids without bleeding 4. Coronary disease status post heart catheterization and balloon angioplasty 5. B12 deficiency PLAN: -Okay to start dual antiplatelet therapy from surgical standpoint -Continue Carafate and daily yogurt for gastric ulcer -Hold off on starting Protonix since it inhibits the absorption of the Plavix -Continue to monitor hemoglobin -Continue supportive care -Continue daily B12 injections Physician Seamer note has been reviewed by physician. Signing provider agrees with the documented findings, assessment, and plan of care. Objective - Vital Signs Vital signs: Vital Signs Temp 97.6 F 05/31/22 08:00 Pulse 61 05/31/22 08:00 Resp 18 05/31/22 08:00 BP 151/58 05/31/22 08:00 Pulse Ox 99 05/31/22 08:00 FiO2 Intake & Output 05/30/22 05/31/22 05/31/22 18:59 06:59 18:59 Intake Total 658 517.08 Output Total 425 Balance 233 517.08 Weight 86.1 kg Intake: Intake, IV Titration 517.08 Amount Sodium Chloride 0.9% 1, 517.08 000 ml In Empty Bag 1 bag @ 1 ML/KG/HR 86.183 mls/ hr IV .[id number] [facility] Rx#: [id number] Oral 658 Output: Urine 425 Other: Voiding Method Toilet Toilet Toilet - Labs CBC & Chem 7: 05/31/22 05:53 05/31/22 05:53 Labs: Abnormal Lab Results - Last 24 Hours (Table) 05/30/22 05/30/22 05/30/22 Range/Units 11:49 16:37 20:13 RBC (4.30-5.90) m/uL Hgb (13.0-17.5) gm/dL Hct (39.0-53.0) % MCHC (31.0-37.0) g/dL RDW (11.5-15.5) % Lymphocytes # (1.0-4.8) k/uL Glucose (74-99) mg/dL POC Glucose (mg/dL) 191 H 179 H 174 H (70-110) mg/dL Calcium (8.4-10.2) mg/dL 05/31/22 05/31/22 05/31/22 Range/Units 05:53 05:53 06:07 RBC 3.31 L (4.30-5.90) m/uL Hgb 9.2 L (13.0-17.5) gm/dL Hct 30.2 L (39.0-53.0) % MCHC 30.4 L (31.0-37.0) g/dL RDW 17.3 H (11.5-15.5) % Lymphocytes # 0.9 L (1.0-4.8) k/uL Glucose 124 H (74-99) mg/dL POC Glucose (mg/dL) 137 H (70-110) mg/dL Calcium 8.3 L (8.4-10.2) mg/dL
[2022-05-31] MEDS ORDERED: MIDAZOLAM 2 MG/2 ML VIAL IVP ONE (12:08)
[2022-05-31] MEDS ORDERED: LIDOCAINE 1% INJ 10MG/ML (30 ML VIAL-PF) SQ ONE (12:10)
[2022-05-31] MEDS ORDERED: HEPARIN SODIUM 1,000 UN/ML (10ML VL) ONE (12:12)
[2022-05-31] MEDS ORDERED: HEPARIN SODIUM 1,000 UN/ML (10ML VL) IV ONE (12:25)
[2022-05-31] MEDS ORDERED: IV FLUID CONTINUATION 1,000 ML IV ONE (12:26)
[2022-05-31] MEDS ORDERED: NITROGLYCERIN 1000MCG/10ML SYRINGE INTRACORON ONE ×2 (13:06)
[2022-05-31] MEDS ORDERED: CLOPIDOGREL 75 MG TAB ONE (13:21)
[2022-05-31] MEDS ORDERED: NITROGLYCERIN SL TABS 0.4 MG TAB SUBLINGUAL PRN (13:26)
[2022-05-31] MEDS ORDERED: ZOLPIDEM 5 MG TAB PO PRN (13:26)
[2022-05-31] MEDS ORDERED: MAG HYDROX/AL HYDROX/SIMETH 30 ML CUP PO PRN (13:26)
[2022-05-31] MEDS ORDERED: ATROPINE SULFATE 0.1 MG/ML 10ML SYRINGE IV PRN (13:26)
[2022-05-31] MEDS ORDERED: RX INFO: IV CONTRAST WAS GIVEN 1 EACH MISC MISCELLANE PRN (13:26)
[2022-05-31] MEDS ORDERED: CLOPIDOGREL 75 MG TAB PO ONE (13:28)
[2022-05-31] MEDS ORDERED: IOPAMIDOL-370 125ML BTL INJ ONE (13:29)
[2022-05-31] MEDS ORDERED: SODIUM CHLORIDE 0.9% 1,000 ML in EMPTY BAG 1 BAG IV SCH (13:30)
--- NOTE | 2022-05-31 13:33 | P.PCN ---
Date of Procedure: 05/31/22 Operative Findings: PERCUTANEOUS CORONARY INTERVENTION Performing physician Amador Bedoya M.D. Procedure Performed: 1. Successful stenting of the proximal LCx using 2.75 x 23 mm Xience drug- eluting stent with an excellent angiographic results with adjunctive use of atherectomy and intravascular ultrasound as well as transvenous temporary pacemaker 2. FFR of the left anterior descending artery 3. Selective right coronary artery angiogram 4. Ultrasound-guided access of the right common femoral artery and selective right common femoral artery angiogram Indication: Unstable angina in this 76-year-old gentleman who is known to have severe two- vessel CAD and intermediate single vessel CAD involving the LAD. Approach: The right common femoral artery and right common femoral vein Complications: None Level of Sedation: Moderate with a sedation length of 71 minutes Procedure Discussion: After obtaining an informed consent the patient was brought to the cardiac laboratory inspector. The right common femoral vein was cannulated using micropuncture technique, the micro-show wire passed easily then I placed a 6-Citizen Of [place] sheath. At that point I advanced past venous temporary pacemaker was balloon tip under fluoroscopy guidance to the right ventricle. That was performed because of potential doing atherectomy of the left circumflex coronary artery. Subsequently the right common femoral artery was cannulated using puncture technique under ultrasound guidance, the micropuncture wire passed easily then I placed a 7-Citizen Of [place] sheath at the right common femoral artery. Anticoagulation was initiated using heparin would continue as is his he monitoring. I did engage the left main using a JL4 guiding catheter. I did wire the left circumflex using a whisper wire and OM1 using a run-through wire. Balloon angioplasty of OM1 was performed using 2.5 mm balloon. Subsequently intravascular ultrasound of the left circumflex showed extremely calcified lesion. I did atherectomy of the lesion after I did advance a Viber. I did that under low speed for 3 times. Subsequently balloon angioplasty was performed using 2.5 mm balloon before I deployed 2.75 x 23 mm stent where the stent was positioned under fluoroscopy guidance and deployed under its nominal pressure. After that I did an angiogram which showed an excellent angiographic results. Subsequently I decided to do an FFR of the left anterior descending artery. After zeroing the Doppler wire and equalizing between the Doppler wire and the guiding catheter with an FFR of the LAD and that came in to be ischemic at 0.48. Finally right coronary angiogram was performed using JR4 guiding catheter to DC the exact size of the right coronary artery seems the RCA will accommodate an atherectomy. The procedure was completed was no complications after selective right common femoral artery angiogram was performed. Postprocedure Management: 1. Continue the current medical regimen including dual antiplatelet therapy for at least 6 not 2. PCI of the LAD and RCA probably with adjunctive use of atherectomy if the patient is tolerating dual antiplatelet therapy was no bleeding issue 3. Follow-up with the patient
[2022-05-31] MEDS ORDERED: HYDROcodone/APAP 5-325MG 1 EACH TAB PO PRN (15:14)
[2022-05-31 16:52] LABS: Glucose,Whole Blood 123 mg/dL (70-110)
[2022-05-31 19:41] VITALS: RESP 16
[2022-05-31 20:39] LABS: Glucose,Whole Blood 175 mg/dL (70-110)
[2022-05-31] MEDS: ATORVASTATIN 40 MG TAB PO SCH (20:48)
[2022-06-01] MEDS: SUCRALFATE 1 GM TAB PO SCH (06:11)
[2022-06-01 06:24] LABS: Glucose,Whole Blood 125 mg/dL (70-110)
[2022-06-01 07:50] LABS: African American GFR (CKD) >90 (>60 ml/min/1.73 sqM); Non-African American GFR(CKD) 84 (>60 ml/min/1.73 sqM)
[2022-06-01 08:29] VITALS: BP 132/68; PULSE 73; TEMP 98.6
[2022-06-01] MEDS: MULTIVITAMINS, THERA 1 EACH TAB PO SCH (08:46)
[2022-06-01] MEDS: CLOPIDOGREL 75 MG TAB PO SCH (08:46)
[2022-06-01] MEDS: CHOLECALCIFEROL 25 MCG (1000 IU) TABLET PO SCH (08:46)
[2022-06-01] MEDS: RANOLAZINE 500 MG TAB.ER.12H PO SCH (08:46)
[2022-06-01] MEDS: METOPROLOL SUCCINATE (ER) 25 MG TAB.ER.24H PO SCH (08:46)
[2022-06-01] MEDS: lisinopriL 5 MG TAB PO SCH (08:46)
[2022-06-01] MEDS: PIOGLITAZONE 30 MG TAB PO SCH (08:47)
[2022-06-01] MEDS: ISOSORBIDE MONONITRATE ER 30 MG TAB.ER.24H PO SCH (08:47)
[2022-06-01] MEDS: CYANOCOBALAMIN 1,000 MCG/ML 1 ML VIAL IM SCH (08:47)
[2022-06-01] MEDS: ASPIRIN 81 MG PO SCH (08:47)
--- NOTE | 2022-06-01 08:53 | P.PN ---
Subjective Progress Note Date: 06/01/22 Principal diagnosis: Anemia This is a 76-year-old male who was originally admitted for a heart catheterization hemoglobin had dropped he did require 1 unit of blood. Hemoglobin was stable and he underwent a heart catheterization last , which showed critical disease involving the mid RCA which is calcified and balloon angioplasty gave inadequate angiographic results. Dr. Bedoya is planning for PCI this morning. Patient is seen sitting in the chair resting with no curr ent complaints. Hemoglobin is stable. 06/01/22 Patient is seen this morning resting comfortably sitting up in chair at bedside. PCI was successfully yesterday and patient is feeling well. He has no current complaints. Objective - Vital Signs Vital signs: Vital Signs Temp 98.6 F 06/01/22 08:00 Pulse 73 06/01/22 08:00 Resp 16 06/01/22 08:00 BP 132/68 06/01/22 08:00 Pulse Ox 98 06/01/22 08:00 FiO2 Intake & Output 05/31/22 06/01/22 06/01/22 18:59 06:59 18:59 Intake Total 290 450 Output Total 1250 Balance 290 -800 Weight 84.6 kg Intake: IV 50 Intake, IV Titration 450 Amount Sodium Chloride 0.9% 1, 450 000 ml In Empty Bag 1 bag @ 1 ML/KG/HR 86.183 mls/ hr IV .[id number] [facility] Rx#: [id number] Oral 240 Output: Urine 1250 Other: Voiding Method Toilet Toilet # Voids 1 3 - Constitutional General appearance: Present: cooperative. Absent: no acute distress - EENT Eyes: Present: EOMI, PERRLA - Neck Neck: Absent: lymphadenopathy, rigidity - Respiratory Respiratory: bilateral: CTA - Cardiovascular Rhythm: regular Heart sounds: normal: S1, S2 - Gastrointestinal General gastrointestinal: Present: soft. Absent: tenderness - Integumentary Integumentary: Present: normal, normal turgor - Psychiatric Psychiatric: Present: A&O x's 3, appropriate affect, intact judgment & insight - Labs CBC & Chem 7: 05/31/22 05:53 06/01/22 06:32 Labs: Abnormal Lab Results - Last 24 Hours (Table) 05/31/22 05/31/22 06/01/22 Range/Units 16:51 20:27 06:22 POC Glucose (mg/dL) 123 H 175 H 125 H (70-110) mg/dL Assessment and Plan (1) Anemia Current Visit: No Status: Acute Priority: High Code(s): D64.9 - ANEMIA, UNSPECIFIED SNOMED Code(s): 773632118 (2) CAD (coronary artery disease) Current Visit: No Status: Acute Code(s): I25.10 - ATHSCL HEART DISEASE OF [place] CORONARY ARTERY W/O ANG PCTRS SNOMED Code(s): 53856116 (3) Diabetes Current Visit: No Status: Acute Code(s): E11.9 - TYPE 2 DIABETES MELLITUS WITHOUT COMPLICATIONS SNOMED Code(s): 86293902 (4) Hypertension Current Visit: No Status: Acute Code(s): I10 - ESSENTIAL (PRIMARY) HYPERTENSION SNOMED Code(s): 67780195 Plan: From a medical standpoint patient may be discharged when cleared by cardiology amd consultants. Patient seen and evaluated by nurse practitioner, physician in agreement with plan
[2022-06-01 09:25] LABS: Anisocytosis Slight; Basophils % (A) 0 %; Eosinophils # (A) 0.1 k/uL (0-0.7); Eosinophils % (A) 1 %; HCT 27.7 % (39.0-53.0); HGB 8.4 gm/dL (13.0-17.5); Hypochromasia Marked; Lymphocytes # (A) 1.1 k/uL (1.0-4.8); Lymphocytes % (A) 21 %; MCH 27.9 pg (25.0-35.0); MCHC 30.4 g/dL (31.0-37.0); MCV 91.7 fL (80.0-100.0); Mean Platelet Volume 7.4; Monocytes # (A) 0.3 k/uL (0-1.0); Monocytes % (A) 6 %; Neutrophils # (A) 3.5 k/uL (1.3-7.7); Neutrophils % (A) 69 %; Platelet Count 278 k/uL (150-450); Poikilocytosis Slight; RBC 3.02 m/uL (4.30-5.90); RDW 17.3 % (11.5-15.5)
--- NOTE | 2022-08-18 13:19 | CDI ---
Documentation Clarification Form Date: 08/18/2022 From: Cristian Oakley Admit Date: 05/25/2022 10:56:00 AM Patient Name: Ayo Turner Visit Number: [id number] Discharge Date: 06/01/2022 10:29:00 AM ATTENTION: The Clinical Documentation Specialists (CDI) and [facility] Coding Staff appreciate your assistance in clarifying documentation. Please respond to the clarification below the line at the bottom and electronically sign. The CDI & [facility] Coding staff will review the response and follow-up if needed. Please note: Queries are made part of the Legal Health Record. If you have any questions, please contact the author of this message via ITS. There is documentation of Acute blood loss anemia per the 05/27 procedure note. Additional clarification is requested regarding the source of the Acute blood loss anemia. History/Risk Factors: 6-year-old gentleman with coronary artery disease and known severe 2 vessel AD involving the RCA and LCx as well as hypertension and dyslipidemia and chronic anemia. He was to undergo PTCA of the RCA and LCx.He and was found to be anemic the day before with a hemoglobin of 6.7 with repeat Hgb of 7.6.We gave the patient one unit of packed RBC in anticipation for PCI. Subsequently the PCI was cancelled and GI was consulted. Clinical Indicators: 05/26 Progress note: We did not pursue any further coronary intervention weeks ago because of severe anemia and workup for anemia. He underwent an upper and lower endoscopy and both came in to be unremarkable for bleeding. Subsequently the patient was seen by the hematology service and he was diagnosed with vitamin B12 deficiency. Subsequently I spoke with his clinic cma who stated that the patient potentially has some source of bleeding and his hemoglobin being too low and fluctuating likeness, be explained by the vitamin B12 deficiency alone. For that reason I canceled the procedure and consulted GI to see him again. 05/26 Consult: Normocytic anemia, History of vitamin B12 deficiency, Recent EGD and colonoscopy in April showing gastritis and diverticulosis with a poor colon bowel prep. Patient scheduled for colonoscopy tomorrow with Dr. Izquierdo. Continue to monitor for any signs or symptoms of bleeding 05/27 Procedure note: Acute and chronic gastric ulcer, antrum without active bleeding, Gastritis: Findings: LA grade B erosive esophagitis. Acute on chronic superficial gastric ulcer 6 mm along antrum without active bleeding Treatment: Transfused 1 unit of Packed red blood cells (05/25), CBC, Carafate 1gm TID (05/27-06/01), Upper endoscopy as needed, Continue to monitor for any signs or symptoms of bleeding. Can you please clarify the source of the Acute blood loss anemia, if known? [ X ] Acute blood loss anemia is due to Gastric ulcer [ ] Acute blood loss anemia is due to [ ] Other, please specify [ ] Unable to determine (Template Last Revised: June 2020) [ X ] Acute blood loss anemia is due to Gastric ulcer MTDD
== END 2022-06-01 10:29 | disposition home health service (06) | DRG 246 ==
LOC: CATHCVL 07:06 → 3SCARD 10:56
PROVIDERS: ADMIT Internal Medicine Interventional Cardiology; ATTEND Internal Medicine Interventional Cardiology
PROC: 30233N1 Transfusion of Nonautologous Red Blood Cells into Peripheral Vein, Percutaneous Approach (ICD-10-PCS; 2022-05-25)
PROC: 0DJ08ZZ Inspection of Upper Intestinal Tract, Via Natural or Artificial Opening Endoscopic (ICD-10-PCS; 2022-05-27)
PROC: 0DJD8ZZ Inspection of Lower Intestinal Tract, Via Natural or Artificial Opening Endoscopic (ICD-10-PCS; 2022-05-27)
PROC: 02703ZZ Dilation of Coronary Artery, One Artery, Percutaneous Approach (ICD-10-PCS; 2022-05-28 09:00)
PROC: B2111ZZ Fluoroscopy of Multiple Coronary Arteries using Low Osmolar Contrast (ICD-10-PCS; 2022-05-28 09:00)
PROC: 02C03Z7 Extirpation of Matter from Coronary Artery, One Artery, Orbital Atherectomy Technique, Percutaneous Approach (ICD-10-PCS; principal; 2022-05-31 13:00)
PROC: 4A033BC Measurement of Arterial Pressure, Coronary, Percutaneous Approach (ICD-10-PCS; principal; 2022-05-31 13:00)
PROC: B41F1ZZ Fluoroscopy of Right Lower Extremity Arteries using Low Osmolar Contrast (ICD-10-PCS; principal; 2022-05-31 13:00)
PROC: 027034Z Dilation of Coronary Artery, One Artery with Drug-eluting Intraluminal Device, Percutaneous Approach (ICD-10-PCS; principal; 2022-05-31 13:00)
DX: I25.119 Atherosclerotic heart disease of native coronary artery with unspecified angina pectoris (principal); K25.0 Acute gastric ulcer with hemorrhage; D62 Acute posthemorrhagic anemia; K22.10 Ulcer of esophagus without bleeding; E11.41 Type 2 diabetes mellitus with diabetic mononeuropathy; E11.51 Type 2 diabetes mellitus with diabetic peripheral angiopathy without gangrene; I11.0 Hypertensive heart disease with heart failure; I50.9 Heart failure, unspecified; I25.84 Coronary atherosclerosis due to calcified coronary lesion; I65.23 Occlusion and stenosis of bilateral carotid arteries; K25.7 Chronic gastric ulcer without hemorrhage or perforation; K29.70 Gastritis, unspecified, without bleeding; I35.0 Nonrheumatic aortic (valve) stenosis; E78.5 Hyperlipidemia, unspecified; E53.8 Deficiency of other specified B group vitamins; K63.5 Polyp of colon; K57.30 Diverticulosis of large intestine without perforation or abscess without bleeding; K44.9 Diaphragmatic hernia without obstruction or gangrene; K64.3 Fourth degree hemorrhoids; Z53.8 Procedure and treatment not carried out for other reasons; Z79.82 Long term (current) use of aspirin; Z79.84 Long term (current) use of oral hypoglycemic drugs; Z79.2 Long term (current) use of antibiotics; Z79.899 Other long term (current) drug therapy; Z95.5 Presence of coronary angioplasty implant and graft; Z87.891 Personal history of nicotine dependence; Z85.828 Personal history of other malignant neoplasm of skin
CPT/HCPCS: 43235; 45378; 76937; 80048; 80053; 82565; 85025; 85027; 86850; 86900; 86901; 86920; 92920; 92978; 93454; 93799; 93970; 94760

== ENCOUNTER 2022-06-15 10:13 | Day surgery (SDC) | payer MEDICARE ==
[2022-06-09 16:36] VITALS: BMI 27.6
[~2022-06-15 10:13] MED LIST changes: +ASPIRIN 325 MG TAB PO ONE; -ASPIRIN 325 MG TAB PO STA; +ATORVASTATIN 80 MG TAB PO ONE; +HEPARIN SODIUM,PORCINE 10,000 UNIT in SODIUM CHLORIDE 0.9% 1,000 ML IRRIGATION PRN; +HEPARIN SODIUM,PORCINE 2,500 UNIT in SODIUM CHLORIDE 0.9% 250 ML IRRIGATION PRN
[2022-06-15] MEDS ORDERED: SODIUM CHLORIDE 0.9% 1,000 ML IV ONE (10:25)
[2022-06-15] MEDS ORDERED: VERAPAMIL 2.5 MG/ML 2 ML AMP ONE (10:43)
[2022-06-15] MEDS ORDERED: HEPARIN SODIUM 1,000 UN/ML (10ML VL) ONE (10:44)
[2022-06-15 11:08] LABS: Anisocytosis Moderate; Basophils % (A) 0 %; Eosinophils # (A) 0.1 k/uL (0-0.7); Eosinophils % (A) 2 %; HCT 31.7 % (39.0-53.0); Hypochromasia Slight; Lymphocytes # (A) 1.5 k/uL (1.0-4.8); Lymphocytes % (A) 27 %; MCH 29.5 pg (25.0-35.0); MCHC 31.4 g/dL (31.0-37.0); MCV 94.1 fL (80.0-100.0); Macrocytosis Slight; Mean Platelet Volume 7.3; Monocytes # (A) 0.3 k/uL (0-1.0); Monocytes % (A) 5 %; Neutrophils # (A) 3.5 k/uL (1.3-7.7); Neutrophils % (A) 64 %; Platelet Count 365 k/uL (150-450); RBC 3.37 m/uL (4.30-5.90); RDW 20.1 % (11.5-15.5); WBC 5.5 k/uL (3.8-10.6)
[2022-06-15 11:26] LABS: HGB 9.9 gm/dL (13.0-17.5)
[2022-06-15] MEDS ORDERED: MIDAZOLAM 2 MG/2 ML VIAL IV ONE (11:48)
[2022-06-15] MEDS ORDERED: LIDOCAINE 1% INJ 10MG/ML (5 ML VIAL-PF) SQ ONE (11:50)
[2022-06-15] MEDS ORDERED: VERAPAMIL SYRINGE (5 MG/10 ML) INTRAARTER ONE (11:54)
[2022-06-15] MEDS: HEPARIN SODIUM 1,000 UN/ML (10ML VL) IV ONE ×2 (12:00→12:31)
[2022-06-15] MEDS ORDERED: CLOPIDOGREL 75 MG TAB ONE (12:55)
[2022-06-15] MEDS ORDERED: NITROGLYCERIN SL TABS 0.4 MG TAB SUBLINGUAL PRN ×2 (13:00→13:01)
[2022-06-15] MEDS ORDERED: ATROPINE SULFATE 0.1 MG/ML 10ML SYRINGE IV PRN (13:01)
[2022-06-15] MEDS ORDERED: CLOPIDOGREL 75 MG TAB PO ONE (13:01)
[2022-06-15] MEDS ORDERED: MAG HYDROX/AL HYDROX/SIMETH 30 ML CUP PO PRN (13:01)
[2022-06-15] MEDS ORDERED: RX INFO: IV CONTRAST WAS GIVEN 1 EACH MISC MISCELLANE PRN (13:01)
[2022-06-15] MEDS ORDERED: ZOLPIDEM 5 MG TAB PO PRN (13:01)
[2022-06-15] MEDS ORDERED: IOPAMIDOL-370 125ML BTL INJ ONE (13:06)
--- NOTE | 2022-06-15 13:07 | P.PCN ---
Date of Procedure: 06/15/22 Operative Findings: PERCUTANEOUS CORONARY INTERVENTION Performing physician Amador Bedoya M.D. Procedure Performed: 1. Successful stenting of the mid LAD using 3.0 x 23 mm Xience drug-eluting stent which was postdilated using 3.5 mm noncompliant balloon with an excellent angiographic results 2. An atherectomy of the left anterior descending artery 3. Ultrasound-guided access of the right radial artery Indication: The patient is a 76-year-old gentleman who is known to have severe disease confirmed by Doppler wire of the left anterior descending artery. He was brought today to undergo an intervention. He was seen in the office recently after an intervention of the left circumflex and he remains symptomatic Approach: Right radial artery Complications: None Level of Sedation: Moderate with a sedation length of 63 minutes Procedure Discussion: After obtaining an informed consent the patient was brought to the cardiac rn cardiac cath. The right radial artery was cannulated using micropuncture technique under ultrasound guidance, the micropuncture wire passed easily then I placed a 6- [place] sheath. I did give the patient 2 mg of verapamil intra-arterial and initially 4000 use of heparin IV with additional heparin given throughout the procedure with continuous ACT monitoring. Subsequently I did engage the left main initially attempting using a CLS 3.5 and then CLS 3 and then JL 3.5 but finally I was able to engage the left main using JL 3 guiding catheter. I did wire the LAD using a run-through wire. Subsequently the wire was exchanged over a catheter into the Viber wire. After that the atherectomy device was advanced over the wire were I did to advance of low-speed off rotational atherectomy. After that predilatation was performed using 2.5 mm balloon before I deployed 3.0 x 23 mm stent where the stent was positioned under fluoroscopy guidance and deployed under 12 halle. Postdilatation of the proximal portion of the stent was performed using 3.5 mm noncompliant balloon and 4 the mid and distal portion using 3.25 mm noncompliant balloon. Final angiogram showed excellent angiographic results. Please note that before I did balloon angioplasty I did wire the LAD using a run-through wire which was a working wire and I left the Viber wire as a santos wire. The procedure was completed was no complication Postprocedure Management: 1. Dual antiplatelet therapy using aspirin and Plavix for at least 6 month 2. Aggressive cholesterol control 3. Risk factors modification
[2022-06-15] MEDS ORDERED: SODIUM CHLORIDE 0.9% 1,000 ML in EMPTY BAG 1 BAG IV SCH (13:15)
[2022-06-15] MEDS: SODIUM CHLORIDE 0.9% 1,000 ML in EMPTY BAG 1 BAG IV SCH ×2 (13:22→17:09)
[2022-06-15] MEDS: SUCRALFATE 1 GM TAB PO SCH (17:13)
[2022-06-15] MEDS: RANOLAZINE 500 MG TAB.ER.12H PO SCH (20:18)
[2022-06-16] MEDS: SODIUM CHLORIDE 0.9% 1,000 ML in EMPTY BAG 1 BAG IV SCH (03:55)
[2022-06-16] MEDS: SUCRALFATE 1 GM TAB PO SCH (05:44)
[2022-06-16 07:53] VITALS: RESP 18; TEMP 97
[2022-06-16 09:00] VITALS: BP 130/56; PULSE 67
[2022-06-16] MEDS ORDERED: METOPROLOL SUCCINATE (ER) 25 MG TAB.ER.24H PO SCH (09:00)
[2022-06-16] MEDS ORDERED: CLOPIDOGREL 75 MG TAB PO SCH (09:00)
[2022-06-16] MEDS: lisinopriL 5 MG TAB PO SCH ×2 (09:00→09:05)
[2022-06-16] MEDS ORDERED: MULTIVITAMINS, THERA 1 EACH TAB PO SCH (09:00)
[2022-06-16] MEDS ORDERED: ASPIRIN 81 MG PO SCH (09:00)
[2022-06-16] MEDS ORDERED: ISOSORBIDE MONONITRATE ER 30 MG TAB.ER.24H PO SCH (09:00)
[2022-06-16] MEDS: RANOLAZINE 500 MG TAB.ER.12H PO SCH (09:04)
--- NOTE | 2022-06-16 09:22 | P.DS ---
Providers Attending physician: Amador Bedoya Consults: 06/15/22 13:01 Consult Physician Routine Consulting Provider: [facility] Consult Reason/Comments: Post Interventional Patient Do you want consulting provider notified?: Already Contacted Primary care physician: Michael Lopez [facility] Course: The patient is a pleasant 76-year-old gentleman who underwent yesterday successful stenting of the left anterior descending artery. He was seen this morning. He is asymptomatic. He is hemodynamically stable. The patient is going to be discharged home on dual antiplatelet therapy and I will follow-up with the patient next week in the office Plan - Discharge Summary Discharge Rx Participant: No New Discharge Prescriptions: Continue Nitroglycerin Sl Tabs [Nitrostat] 0.4 mg SUBLINGUAL Q5M PRN PRN Reason: Chest Pain Multivit-Min/FA/Lycopen/Lutein [Centrum Silver Men Tablet] 1 tab PO DAILY Isosorbide Mononitrate ER [Imdur] 30 mg PO DAILY 30 Days #30 tab Sucralfate [Carafate] 1 gm PO AC-TID #180 tab Clopidogrel [Plavix] 75 mg PO DAILY #90 tab Atorvastatin [Lipitor] 40 mg PO HS lisinopriL [Zestril] 5 mg PO DAILY Ranolazine [Ranexa] 500 mg PO Q12HR 30 Days #60 tab Metoprolol Succinate (ER) [Toprol XL] 25 mg PO DAILY 30 Days #30 tab metroNIDAZOLE [Flagyl] 500 mg PO TID #90 tab Aspirin [Adult Low Dose Aspirin EC] 81 mg PO DAILY Discharge Medication List Atorvastatin [Lipitor] 40 mg PO HS 08/12/20 [History] lisinopriL [Zestril] 5 mg PO DAILY 08/12/20 [History] Multivit-Min/FA/Lycopen/Lutein [Centrum Silver Men Tablet] 1 tab PO DAILY 04/08/22 [History] Nitroglycerin Sl Tabs [Nitrostat] 0.4 mg SUBLINGUAL Q5M PRN 04/08/22 [History] Isosorbide Mononitrate ER [Imdur] 30 mg PO DAILY 30 Days #30 tab 04/11/22 [Rx] Metoprolol Succinate (ER) [Toprol XL] 25 mg PO DAILY 30 Days #30 tab 04/11/22 [Rx] Ranolazine [Ranexa] 500 mg PO Q12HR 30 Days #60 tab 04/11/22 [Rx] metroNIDAZOLE [Flagyl] 500 mg PO TID #90 tab 04/30/22 [Rx] Aspirin [Adult Low Dose Aspirin EC] 81 mg PO DAILY 05/21/22 [History] Clopidogrel [Plavix] 75 mg PO DAILY #90 tab 06/01/22 [Rx] Sucralfate [Carafate] 1 gm PO AC-TID #180 tab 06/01/22 [Rx] Follow up Appointment(s)/Referral(s): Amador Bedoya MD [STAFF PHYSICIAN] - 1 Week (OFFICE WILL CALL WITH FOLLOW UP APPOINTMENT)
[2022-06-16] MEDS ORDERED: ATORVASTATIN 40 MG TAB PO SCH (21:00)
== END 2022-06-16 11:04 | disposition home or self-care (01) ==
LOC: CATHCVL 10:13 → 6NMEDSUR 12:50 → CATHCVL 06-16 11:04
PROVIDERS: ATTEND Internal Medicine Interventional Cardiology
DX: I25.10 Atherosclerotic heart disease of native coronary artery without angina pectoris (principal); I10 Essential (primary) hypertension; E78.5 Hyperlipidemia, unspecified; E11.9 Type 2 diabetes mellitus without complications; F17.210 Nicotine dependence, cigarettes, uncomplicated; Z79.84 Long term (current) use of oral hypoglycemic drugs; Z79.899 Other long term (current) drug therapy
CPT/HCPCS: 94760; 92978; 82565; 85025; C9602; C1887 ×4; C1769 ×3; C1894; C1725 ×2; C1753; C1724; C1874; J2250; J2001; J1644; Q9967

== ENCOUNTER → 2022-10-13 | Outpatient (CLI) | payer MEDICARE ==
[2022-10-13 08:57] LABS: African American GFR (CKD) 65 (>60 ml/min/1.73 sqM); Blood Urea Nitrogen 28 mg/dL (9-20); Non-African American GFR(CKD) 56 (>60 ml/min/1.73 sqM)
--- NOTE | 2022-10-13 19:10 | CT ---
EXAMINATION TYPE: CT abdomen pelvis w con CT DLP: 772.6 mGycm, Automated exposure control for dose reduction was used. DATE OF EXAM: 10/13/2022 10:20 AM COMPARISON: CTA chest 04/21/2022. CLINICAL INDICATION:Male, 77 years old with history of R16.0; Liver mass, weight loss TECHNIQUE: Standard CT of the abdomen and pelvis following the administration of 80 cc of Isovue 30 0 IV contrast material and oral contrast. Coronal and sagittal reformats were performed. FINDINGS: LOWER CHEST: There are a few bilateral lower lobe pulmonary nodules which are not definitively visual ized in prior examination. Stable includes a left lower lobe 1.2 cm nodule (series 4, image 10). And a right lower lobe 6 mm nodule (series 4, image 4), and a 5 mm pulmonary nodule (series 4, image 2). Aortic valvular calcifications. Trace pericardial fluid. ABDOMEN LIVER/GALLBLADDER: Dominant hypoattenuating mass primarily within segment 5 and extending into segmen t 8 of the right hepatic lobe. Grossly measures 9.2 x 10.6 cm (series 3, image 28) and has increased in size from prior examination and measure up to 7.7 x 4.9 cm. There is the region of the gallbladder which is poorly visualized. There are several new hypodense lesions within the right hepatic lobe wi th largest measuring up to 3.7 cm (series 3, image 28). BILE DUCTS: Unremarkable. PANCREAS: Unremarkable. SPLEEN: Unremarkable. ADRENAL GLANDS: The right adrenal gland is unremarkable. There is some nodular thickening of the left adrenal gland measuring up to 1.3 cm. KIDNEYS AND URETERS: No evidence of hydronephrosis bilaterally likely vascular renal calcifications. The kidneys enhance symmetrically. PELVIS BLADDER: There are distended with suggested trabeculation likely related to chronic outlet obstructio n from the enlarged prostate gland. REPRODUCTIVE: Prostate is enlarged in size measuring 5.8 cm in transverse dimension. ABDOMEN & PELVIS STOMACH AND BOWEL: Stomach and duodenum are unremarkable. Enteric contrast reaches the descending col on. There is stool present throughout the colon which limits evaluation. No evidence of bowel obstruc tion. PERITONEUM: No evidence of pneumoperitoneum. Small amount of fluid in the pelvis and perihepatic in l ocation. VASCULATURE: Moderate atherosclerotic calcifications are present throughout the abdominal aorta and i ts branches. No evidence of aortic aneurysm. Left superficial femoral artery stent identified. Few pe lvic phleboliths. MUSCULOSKELETAL: No acute osseous abnormalities. Mild disc degeneration changes are present throughou t the thoracolumbar spine. LYMPH NODES: Mildly prominent periaortic lymph nodes with central low density with example including a left para-aortic lymph node measuring 1.3 cm short axis (series 3, image 33). SOFT TISSUE/ABDOMINAL WALL: Unremarkable IMPRESSION: Dominant hypodense mass within the right hepatic lobe in the region of the gallbladder which is poorl y visualized. This is increased in size from prior CT chest 04/21/2022 with new several hypodense lesio ns within the right hepatic lobe. Small amount of free fluid in the pelvis and perihepatic in locatio n. Additional findings of nodular thickening of the left adrenal gland, and a couple of mildly enlarg ed retroperitoneal lymph nodes with a few bilateral lower lobe pulmonary nodules which are not defini tively visualized on prior exam. This is considered malignancy until proven otherwise likely metastas is to the right hepatic lobe. Possibly metastasis to the left adrenal gland, retroperitoneal lymph no mallory, and lungs. Etiologies include gallbladder carcinoma versus hepatocellular carcinoma versus other malignancy. Further workup is recommended with consideration for biopsy.
== END | disposition home or self-care (01) ==
LOC: RADCTMAIN 08:03
PROVIDERS: ATTEND Family Medicine
DX: K76.89 Other specified diseases of liver (principal); E27.8 Other specified disorders of adrenal gland; R16.0 Hepatomegaly, not elsewhere classified; R59.0 Localized enlarged lymph nodes
CPT/HCPCS: 82565; 84520; 74177; 36415; Q9967

== ENCOUNTER 2022-11-02 21:00 | Inpatient (IN) | payer MEDICARE ==
[2022-11-02] MEDS ORDERED: SODIUM CHLORIDE 0.9% 500 ML 500 ML IV STA (21:52)
--- NOTE | 2022-11-02 21:56 | ED ---
General Adult HPI - General Chief complaint: Recheck/Abnormal Lab/Rx Stated complaint: Fatigue, Weakness Time Seen by Provider: 11/02/22 21:27 Source: patient, family Mode of arrival: ambulatory Limitations: no limitations - History of Present Illness Initial comments: Dictation was produced using [employer] dictation software. please excuse any gramma tical, word or spelling errors. Chief Complaint: 77-year-old male with past medical history of recently diagnosed liver lung cancer presents to the ER for weakness History of Present Illness: Patient 77-year-old man is accompanied by granddaughter. Patient has had weakness for approximately 3 weeks. Patient was scheduled to have outpatient iron infusions. It was thought by director of infection control that patient's anemia secondary to low iron. Recently he was diagnosed with lung and liver cancer. He has not had a biopsy yet. Patient denies any black or bloody stools. Denies any abdominal pain. He had had a bout of chest pain today. His history of coronary artery disease. He did take a nitroglycerin. The ROS documented in this emergency department record has been reviewed and c onfirmed by me. Those systems with pertinent positive or negative responses have been documented in the HPI. All other systems are other negative and/or noncontributory. - Related Data Home Medications Medication Instructions Recorded Confirmed Atorvastatin [Lipitor] 40 mg PO HS 08/12/20 06/15/22 lisinopriL [Zestril] 5 mg PO DAILY 08/12/20 06/15/22 Multivit-Min/FA/Lycopen/Lutein 1 tab PO DAILY 04/08/22 06/15/22 [Centrum Silver Men Tablet] Nitroglycerin Sl Tabs [Nitrostat] 0.4 mg SUBLINGUAL Q5M PRN 04/08/22 06/09/22 Aspirin [Adult Low Dose Aspirin EC] 81 mg PO DAILY 05/21/22 06/15/22 Previous Rx's Medication Instructions Recorded Isosorbide Mononitrate ER [Imdur] 30 mg PO DAILY 30 Days #30 tab 04/11/22 Metoprolol Succinate (ER) [Toprol 25 mg PO DAILY 30 Days #30 tab 04/11/22 XL] Ranolazine [Ranexa] 500 mg PO Q12HR 30 Days #60 tab 04/11/22 metroNIDAZOLE [Flagyl] 500 mg PO TID #90 tab 04/30/22 Clopidogrel [Plavix] 75 mg PO DAILY #90 tab 06/01/22 Sucralfate [Carafate] 1 gm PO AC-TID #180 tab 06/01/22 Allergies Allergy/AdvReac Type Severity Reaction Status Date / Time No Known Allergies Allergy Verified 06/09/22 16:22 Review of Systems ROS Statement: Those systems with pertinent positive or pertinent negative responses have been documented in the HPI. ROS Other: All systems not noted in ROS Statement are negative. Past Medical History Past Medical History: Coronary Artery Disease (CAD), Chest Pain / Angina, Diabetes Mellitus, Hyperlipidemia, Hypertension, Vascular Disorder Additional Past Medical History / Comment(s): Hx rectal bleeding, hemorrhoids, diverticulosis., poor circulation -pt states stent left leg., neuropathy of feet., wound on ball of right foot., hospitalization 04/21/22 -04/30/22 for chest pain & anemia-egd and colonoscopy (gastritis & diverticulosis)., & received blood transfusions.,slight blockage carotid arteries.,. *See Cardiology H & P. History of Any Multi-Drug Resistant Organisms: None Reported Past Surgical History: Heart Catheterization, Heart Catheterization With Stent Additional Past Surgical History / Comment(s): *SEE CARDIOLOGY H&P. Hemorrhoidectomy about 40 years ago, colonoscopy, egd, skin cancer., stent left leg, varicose veins removed, heart cath aborted due to low hgb., debridement right foot callus. EGD/colonoscopy last admission negative for any type of bleed per patient Past Anesthesia/Blood Transfusion Reactions: No Reported Reaction Additional Past Anesthesia/Blood Transfusion Reaction / Comment(s): Pt had no re action to blood transfusions and has had multiple in the past. Date of Last Stent Placement:: UNK Past Psychological History: No Psychological Hx Reported Smoking Status: Former smoker Past Alcohol Use History: Occasional Past Drug Use History: None Reported - Past Family History Father Family Medical History: Cancer Mother Family Medical History: Cancer General Exam - General Exam Comments Initial Comments: PHYSICAL EXAM: General Impression: Alert and oriented x3, not in acute distress, pale HEENT: Normocephalic atraumatic, extra-ocular movements intact, pupils equal and reactive to light bilaterally, mucous membranes moist. Cardiovascular: Heart regular rate and rhythm Chest: Able to complete full sentences, no retractions, no tachypnea Abdomen: abdomen soft, non-tender, non-distended, no organomegaly Musculoskeletal: Pulses present and equal in all extremities, no peripheral edema Motor: no focal deficits noted Neurological: CN II-XII grossly intact, no focal motor or sensory deficits noted Skin: Intact with no visualized rashes Psych: Normal affect and mood Limitations: no limitations Course Vital Signs 11/02/22 21:18 Temperature 97.7 F Pulse Rate 92 Respiratory 22 Rate Blood Pressure 101/64 O2 Sat by Pulse 99 Oximetry EKG Findings - EKG Comments: EKG Findings:: My EKG interpretation: Ventricular rate 91, sinus rhythm,. 195, QRS 85, QTC 378. No TX prolongation, no QTC prolongation, no ST or T-wave changes noted. EKG compared to 06/16/2022 showing no changes. Overall, this EKG is unremarkable Medical Decision Making - Medical Decision Making Was pt. sent in by a medical professional or institution (, PA, WEAVE ROOM SUPERVISOR, urgent care, hospital, or intermediate...) When possible be specific @ -No Did you speak to anyone other than the patient for history (EMS, parent, family, police, friend...)? What history was obtained from this source @ -No Did you review nursing and triage notes (agree or disagree)? Why? @ -I reviewed and agree with nursing and triage notes Were old charts reviewed (outside hosp., previous admission, EMS record, old EKG, old radiological studies, urgent care reports/EKG's, intermediate records)? Report findings @ -No old charts were reviewed Differential Diagnosis (chest pain, altered mental status, abdominal pain women, abdominal pain men, vaginal bleeding, musculoskeletal, weakness, fever, dyspnea, syncope, headache, dizziness, GI bleed, back pain, seizure, CVA, palpatations, mental health)? @ -Differential Weakness: Hypoglycemia, shock, sepsis, hyponatremia, anemia, infection, NV, ETOH, adverse medicine reaction, overdose, stroke, this is not meant to be an all-inclusive list. Differential Chest Pain: Stable Angina, Unstable Angina, STEMI, NSTEMI Aortic Dissection, Pneumothorax, Musculoskeletal, Esophageal Spasm GERD, Cholecystitis, Pancreatitis, Zoster, this is not meant to be an all-inclusive list. EKG interpreted by me (3pts min.). @ -See above X-rays interpreted by me (1pt min.). @ -None done CT interpreted by me (1pt min.). @ -None done U/S interpreted by me (1pt. min.). @ -None done What testing was considered but not performed or refused? (CT, X-rays, U/S, labs)? Why? @ -None What meds were considered but not given or refused? Why? @ -None Did you discuss the management of the patient with other professionals (professionals i.e. DrStefani, PA, WEAVE ROOM SUPERVISOR, lab, RT, psych nurse, hospital social worker, vice president of instruction, teacher, training officer, keycase assembler)? Give summary @ -Case is discussed with Dr. Lopez for admission Was smoking cessation discussed for >3mins.? @ -No Was critical care preformed (if so, how long)? @ -No Were there social determinants of health that impacted care today? How? (Homelessness, low income, unemployed, alcoholism, drug addiction, t ransportation, low edu. Level, literacy, decrease access to med. care, detention, rehab)? @ -No Was there de-escalation of care discussed even if they declined (Discuss DNR or withdrawal of care, Hospice)? DNR status @ -No What co-morbidities impacted this encounter? (DM, HTN, Smoking, COPD, CAD, Cancer, CVA, ARF, Chemo, Hep., AIDS, mental health diagnosis, sleep apnea, morbid obesity)? @ -None Was patient admitted / discharged? Hospital course, mention meds given and route, prescriptions, significant lab abnormalities, going to OR and other pertinent info. @ -77-year-old male presents emergency department for worsening weakness. He has recent anemia. Denies any black or bloody stools. He also had a bout of chest pain today. He has extensive cardiac history. Vital signs are stable. Patient no acute distress. Laboratory evaluation obtained. Hemoglobin 7.3 most recent hemoglobin level was 9.9 from May. Metabolic panel shows signs of dehydration. Troponin is 0.02. Patient given aspirin. He'll be admitted consultation to cardiology. Undiagnosed new problem with uncertain prognosis? @ -No Drug Therapy requiring intensive monitoring for toxicity (Heparin, Nitro, Insulin, Cardizem)? @ -No Were any procedures done? @ -No Diagnosis/symptom? Acute, or Chronic, or Acute on Chronic? Uncomplicated (without systemic symptoms) or Complicated (systemic symptoms)? @ -1. Generalized weakness, 2. Chest pain Side effects of treatment? @ -No Exacerbation, Progression, or Severe Exacerbation? @ -No Poses a threat to life or bodily function? How? (Chest pain, USA, NV, pneumonia, PE, COPD, DKA, ARF, appy, cholecystitis, CVA, Diverticulitis, Homicidal, Suicidal, threat to staff... and all critical care pts) @ -yes - Lab Data Result diagrams: 11/02/22 21:50 11/02/22 21:50 Lab Results 11/02/22 11/02/22 11/02/22 Range/Units 21:50 21:50 21:50 WBC 12.3 H (3.8-10.6) k/uL RBC 2.66 L (4.30-5.90) m/uL Hgb 7.3 L (13.0-17.5) gm/dL Hct 24.4 L (39.0-53.0) % MCV 91.6 (80.0-100.0) fL MCH 27.3 (25.0-35.0) pg MCHC 29.8 L (31.0-37.0) g/dL RDW 21.3 H (11.5-15.5) % Plt Count 502 H (150-450) k/uL MPV 7.8 Neutrophils % 87 % Lymphocytes % 6 % Monocytes % 5 % Eosinophils % 0 % Basophils % 0 % Neutrophils # 10.7 H (1.3-7.7) k/uL Lymphocytes # 0.8 L (1.0-4.8) k/uL Monocytes # 0.6 (0-1.0) k/uL Eosinophils # 0.0 (0-0.7) k/uL Basophils # 0.0 (0-0.2) k/uL Hypochromasia Marked Anisocytosis Moderate Macrocytosis Slight PT 11.5 (9.0-12.0) sec INR 1.1 (<1.2) APTT 26.7 (22.0-30.0) sec Sodium 134 L (137-145) mmol/L Potassium 5.2 H (3.5-5.1) mmol/L Chloride 100 (98-107) mmol/L Carbon Dioxide 21 L (22-30) mmol/L Anion Gap 13 mmol/L BUN 51 H (9-20) mg/dL Creatinine 1.19 (0.66-1.25) mg/dL Est GFR (CKD-EPI)AfAm 67 (>60 ml/min/1.73 sqM) Est GFR (CKD-EPI)NonAf 58 (>60 ml/min/1.73 sqM) Glucose 201 H (74-99) mg/dL Calcium 8.8 (8.4-10.2) mg/dL Total Bilirubin 0.7 (0.2-1.3) mg/dL AST 53 (17-59) U/L ALT 27 (4-49) U/L Alkaline Phosphatase 192 H (38-126) U/L Troponin I (0.000-0.034) ng/mL Total Protein 6.6 (6.3-8.2) g/dL Albumin 2.6 L (3.5-5.0) g/dL 11/02/22 Range/Units 21:50 WBC (3.8-10.6) k/uL RBC (4.30-5.90) m/uL Hgb (13.0-17.5) gm/dL Hct (39.0-53.0) % MCV (80.0-100.0) fL MCH (25.0-35.0) pg MCHC (31.0-37.0) g/dL RDW (11.5-15.5) % Plt Count (150-450) k/uL MPV Neutrophils % % Lymphocytes % % Monocytes % % Eosinophils % % Basophils % % Neutrophils # (1.3-7.7) k/uL Lymphocytes # (1.0-4.8) k/uL Monocytes # (0-1.0) k/uL Eosinophils # (0-0.7) k/uL Basophils # (0-0.2) k/uL Hypochromasia Anisocytosis Macrocytosis PT (9.0-12.0) sec INR (<1.2) APTT (22.0-30.0) sec Sodium (137-145) mmol/L Potassium (3.5-5.1) mmol/L Chloride (98-107) mmol/L Carbon Dioxide (22-30) mmol/L Anion Gap mmol/L BUN (9-20) mg/dL Creatinine (0.66-1.25) mg/dL Est GFR (CKD-EPI)AfAm (>60 ml/min/1.73 sqM) Est GFR (CKD-EPI)NonAf (>60 ml/min/1.73 sqM) Glucose (74-99) mg/dL Calcium (8.4-10.2) mg/dL Total Bilirubin (0.2-1.3) mg/dL AST (17-59) U/L ALT (4-49) U/L Alkaline Phosphatase (38-126) U/L Troponin I 0.020 (0.000-0.034) ng/mL Total Protein (6.3-8.2) g/dL Albumin (3.5-5.0) g/dL Disposition Clinical Impression: Chest pain Disposition: ADMITTED IP TO THIS HOSP Condition: Fair Referrals: Michael Lopez MD [Primary Care Provider] - 1-2 days Decision Time: 22:30
[2022-11-02 22:12] LABS: ALT 27 U/L (4-49); AST 53 U/L (17-59); African American GFR (CKD) 67 (>60 ml/min/1.73 sqM); Albumin 2.6 g/dL (3.5-5.0); Alkaline Phosphatase 192 U/L (38-126); Anion Gap 13 mmol/L; Blood Urea Nitrogen 51 mg/dL (9-20); Calcium 8.8 mg/dL (8.4-10.2); Carbon Dioxide 21 mmol/L (22-30); Chloride 100 mmol/L (98-107); Glucose 201 mg/dL (74-99); Non-African American GFR(CKD) 58 (>60 ml/min/1.73 sqM); Potassium 5.2 mmol/L (3.5-5.1); Sodium 134 mmol/L (137-145); Total Bilirubin 0.7 mg/dL (0.2-1.3); Total Protein 6.6 g/dL (6.3-8.2)
[2022-11-02 22:13] LABS: INR 1.1 (<1.2); Partial Thromboplastin Time 26.7 sec (22.0-30.0); Prothrombin Time 11.5 sec (9.0-12.0)
[2022-11-02 22:20] LABS: Anisocytosis Moderate; Basophils % (A) 0 %; Eosinophils % (A) 0 %; HCT 24.4 % (39.0-53.0); HGB 7.3 gm/dL (13.0-17.5); Hypochromasia Marked; Lymphocytes # (A) 0.8 k/uL (1.0-4.8); Lymphocytes % (A) 6 %; MCH 27.3 pg (25.0-35.0); MCHC 29.8 g/dL (31.0-37.0); MCV 91.6 fL (80.0-100.0); Macrocytosis Slight; Mean Platelet Volume 7.8; Monocytes # (A) 0.6 k/uL (0-1.0); Monocytes % (A) 5 %; Neutrophils # (A) 10.7 k/uL (1.3-7.7); Neutrophils % (A) 87 %; Platelet Count 502 k/uL (150-450); RBC 2.66 m/uL (4.30-5.90); RDW 21.3 % (11.5-15.5); WBC 12.3 k/uL (3.8-10.6)
[2022-11-02] MEDS ORDERED: ASPIRIN 81 MG PO STA (22:29)
[2022-11-02] MEDS ORDERED: NITROGLYCERIN SL TABS 0.4 MG TAB SUBLINGUAL PRN (22:37)
[2022-11-03 04:27] LABS: ALT 24 U/L (4-49); AST 42 U/L (17-59); African American GFR (CKD) 70 (>60 ml/min/1.73 sqM); Albumin 2.2 g/dL (3.5-5.0); Albumin/Globulin Ratio 0.7; Alkaline Phosphatase 171 U/L (38-126); Anion Gap 7 mmol/L; Blood Urea Nitrogen 45 mg/dL (9-20); Calcium 8.4 mg/dL (8.4-10.2); Carbon Dioxide 23 mmol/L (22-30); Chloride 103 mmol/L (98-107); Globulin 3.3 g/dL; Glucose 139 mg/dL (74-99); Non-African American GFR(CKD) 61 (>60 ml/min/1.73 sqM); Potassium 4.8 mmol/L (3.5-5.1); Sodium 133 mmol/L (137-145); Total Bilirubin 0.6 mg/dL (0.2-1.3); Total Protein 5.5 g/dL (6.3-8.2)
[2022-11-03 04:40] LABS: Anisocytosis Moderate; Basophils % (A) 0 %; Eosinophils # (A) 0.1 k/uL (0-0.7); Eosinophils % (A) 1 %; HCT 21.3 % (39.0-53.0); Hypochromasia Marked; Lymphocytes # (A) 0.9 k/uL (1.0-4.8); Lymphocytes % (A) 7 %; MCH 27.2 pg (25.0-35.0); MCHC 29.5 g/dL (31.0-37.0); MCV 92.1 fL (80.0-100.0); Macrocytosis Slight; Mean Platelet Volume 7.5; Monocytes # (A) 0.5 k/uL (0-1.0); Monocytes % (A) 4 %; Neutrophils # (A) 10.9 k/uL (1.3-7.7); Neutrophils % (A) 86 %; Platelet Count 447 k/uL (150-450); RBC 2.31 m/uL (4.30-5.90); RDW 21.6 % (11.5-15.5); WBC 12.7 k/uL (3.8-10.6)
[2022-11-03 04:48] LABS: HGB 6.3 gm/dL (13.0-17.5)
[2022-11-03] MEDS ORDERED: NITROGLYCERIN SL TABS 0.4 MG TAB SUBLINGUAL PRN (08:09)
[2022-11-03] MEDS: ISOSORBIDE MONONITRATE ER 30 MG TAB.ER.24H PO SCH (08:37)
[2022-11-03] MEDS: RANOLAZINE 500 MG TAB.ER.12H PO SCH ×2 (08:37→20:21)
[2022-11-03] MEDS: ASPIRIN 81 MG PO SCH (08:38)
[2022-11-03] MEDS: lisinopriL 5 MG TAB PO SCH (08:38)
[2022-11-03] MEDS: METOPROLOL SUCCINATE (ER) 25 MG TAB.ER.24H PO SCH (08:38)
--- NOTE | 2022-11-03 08:42 | P.HPIM ---
History of Present Illness Chief Complaint: Chest pain liver mass This 77-year-old white male with known history of chronic anemia for the last se veral weeks has been told he has liver mass. We will go ahead and consult hematology oncology. Underlying history of anemia which required one pack RBC. However he came in with significant chest pain. No fever or chills. No voiding difficulties significant weakness. Review of Systems Constitutional: Denies chills, Denies fever Eyes: denies blurred vision, denies pain Ears, nose, mouth and throat: Denies headache, Denies sore throat Cardiovascular: Reports as per HPI, Reports chest pain Respiratory: Denies cough Past Medical History Past Medical History: Coronary Artery Disease (CAD), Chest Pain / Angina, [place] Mellitus, Hyperlipidemia, Hypertension, Vascular Disorder Additional Past Medical History / Comment(s): Hx rectal bleeding, hemorrhoids, diverticulosis., poor circulation -pt states stent left leg., neuropathy of feet., wound on ball of right foot., hospitalization 04/21/22 -04/30/22 for chest pain & anemia-egd and colonoscopy (gastritis & diverticulosis)., & received blood transfusions.,slight blockage carotid arteries.,. *See Cardiology H & P. History of Any Multi-Drug Resistant Organisms: None Reported Past Surgical History: Heart Catheterization, Heart Catheterization With Stent Additional Past Surgical History / Comment(s): *SEE CARDIOLOGY H&P. Hemorrhoidectomy about 40 years ago, colonoscopy, egd, skin cancer., stent left leg, varicose veins removed, heart cath aborted due to low hgb., debridement right foot callus. EGD/colonoscopy last admission negative for any type of bleed per patient Past Anesthesia/Blood Transfusion Reactions: No Reported Reaction Additional Past Anesthesia/Blood Transfusion Reaction / Comment(s): Pt had no reaction to blood transfusions and has had multiple in the past. Date of Last Stent Placement:: UNK Past Psychological History: No Psychological Hx Reported Smoking Status: Former smoker Past Alcohol Use History: Occasional Additional Past Alcohol Use History / Comment(s): Smoked for 50 years, quit 10 years ago per patient. Past Drug Use History: None Reported - Past Family History Father Family Medical History: Cancer Mother Family Medical History: Cancer Medications and Allergies Home Medications Medication Instructions Recorded Confirmed Type Atorvastatin [Lipitor] 40 mg PO HS 08/12/20 11/02/22 History lisinopriL [Zestril] 5 mg PO DAILY 08/12/20 11/02/22 History Multivit-Min/FA/Lycopen/Lutein 1 tab PO DAILY 04/08/22 11/02/22 History [Centrum Silver Men Tablet] Nitroglycerin Sl Tabs [Nitrostat] 0.4 mg SUBLINGUAL Q5M PRN 04/08/22 11/02/22 History Isosorbide Mononitrate ER [Imdur] 30 mg PO DAILY 30 Days #30 tab 04/11/22 11/02/22 Rx Metoprolol Succinate (ER) [Toprol 25 mg PO DAILY 30 Days #30 tab 04/11/22 11/02/22 Rx XL] Ranolazine [Ranexa] 500 mg PO Q12HR 30 Days #60 tab 04/11/22 11/02/22 Rx Aspirin [Adult Low Dose Aspirin EC] 81 mg PO DAILY 05/21/22 11/02/22 History Clopidogrel [Plavix] 75 mg PO DAILY #90 tab 06/01/22 11/02/22 Rx Cholecalciferol [Vitamin D3 (25 25 mcg PO DAILY 11/02/22 11/02/22 History Mcg = 1000 Iu)] Famotidine 40 mg PO BID 11/02/22 11/02/22 History Allergies Allergy/AdvReac Type Severity Reaction Status Date / Time No Known Allergies Allergy Verified 11/02/22 22:48 Physical Exam Vitals: Vital Signs Temp Pulse Pulse Resp BP BP Pulse Ox 11/03/22 08:00 97 11/03/22 07:00 97.4 F L 91 16 102/62 91 L 11/03/22 05:46 85 100/61 97 11/03/22 03:27 97.7 F 86 16 106/58 97 11/03/22 00:47 18 11/02/22 23:46 97.5 F L 94 16 132/62 100 11/02/22 23:00 88 16 122/61 98 11/02/22 21:18 97.7 F 92 22 101/64 99 Intake and Output 11/02/22 11/03/22 11/03/22 22:59 06:59 14:59 Other: Voiding Method Urinal Weight 74.843 kg 74.843 kg - Constitutional General appearance: cooperative, no acute distress - EENT Eyes: EOMI - Neck Neck: no lymphadenopathy - Respiratory Respiratory: bilateral: CTA - Cardiovascular Rhythm: regular Heart sounds: normal: S1, S2 Abnormal Heart Sounds: no S3 Gallop - Gastrointestinal General gastrointestinal: soft, no tenderness - Neurologic Neurologic: CNII-XII intact Results CBC & Chem 7: 11/03/22 03:22 11/03/22 03:22 Labs: Abnormal Lab Results - Last 24 Hours (Table) 11/02/22 11/02/22 11/02/22 Range/Units 21:50 21:50 21:50 WBC 12.3 H (3.8-10.6) k/uL RBC 2.66 L (4.30-5.90) m/uL Hgb 7.3 L (13.0-17.5) gm/dL Hct 24.4 L (39.0-53.0) % MCHC 29.8 L (31.0-37.0) g/dL RDW 21.3 H (11.5-15.5) % Plt Count 502 H (150-450) k/uL Neutrophils # 10.7 H (1.3-7.7) k/uL Lymphocytes # 0.8 L (1.0-4.8) k/uL Sodium 134 L (137-145) mmol/L Potassium 5.2 H (3.5-5.1) mmol/L Carbon Dioxide 21 L (22-30) mmol/L BUN 51 H (9-20) mg/dL Glucose 201 H (74-99) mg/dL Alkaline Phosphatase 192 H (38-126) U/L Total Protein (6.3-8.2) g/dL Albumin 2.6 L (3.5-5.0) g/dL Crossmatch See Detail 11/03/22 11/03/22 Range/Units 03:22 03:22 WBC 12.7 H (3.8-10.6) k/uL RBC 2.31 L (4.30-5.90) m/uL Hgb 6.3 L* (13.0-17.5) gm/dL Hct 21.3 L (39.0-53.0) % MCHC 29.5 L (31.0-37.0) g/dL RDW 21.6 H (11.5-15.5) % Plt Count (150-450) k/uL Neutrophils # 10.9 H (1.3-7.7) k/uL Lymphocytes # 0.9 L (1.0-4.8) k/uL Sodium 133 L (137-145) mmol/L Potassium (3.5-5.1) mmol/L Carbon Dioxide (22-30) mmol/L BUN 45 H (9-20) mg/dL Glucose 139 H (74-99) mg/dL Alkaline Phosphatase 171 H (38-126) U/L Total Protein 5.5 L (6.3-8.2) g/dL Albumin 2.2 L (3.5-5.0) g/dL Crossmatch Thrombosis Risk Factor Assmnt - Choose All That Apply Any of the Below Risk Factors Present?: No Other Risk Factors: Yes Each Risk Factor Represents 3 Points: Age 75 years or older Other congenital or acquired thrombophilia - If yes, enter type in comment: No Thrombosis Risk Factor Assessment Total Risk Factor Score: 3 Thrombosis Risk Factor Assessment Level: Moderate Risk Assessment and Plan (1) Liver mass Current Visit: Yes Status: Acute Code(s): R16.0 - HEPATOMEGALY, NOT ELSEWHERE CLASSIFIED SNOMED Code(s): 381800067 (2) Anemia Current Visit: No Status: Acute Priority: High Code(s): D64.9 - ANEMIA, UNSPECIFIED SNOMED Code(s): 830990530 (3) Angina at rest Current Visit: No Status: Acute Code(s): I20.8 - OTHER FORMS OF ANGINA PECTORIS SNOMED Code(s): 617450100 (4) CAD (coronary artery disease) Current Visit: No Status: Acute Code(s): I25.10 - ATHSCL HEART DISEASE OF [place] CORONARY ARTERY W/O ANG PCTRS SNOMED Code(s): 96747760 (5) Diabetes Current Visit: No Status: Acute Code(s): E11.9 - TYPE 2 DIABETES MELLITUS WITHOUT COMPLICATIONS SNOMED Code(s): 55401225 Plan: Appreciate cardiology input. Reconcile medications. Consult oncology/hematology for liver issues. Place on sliding scale as necessary. Check CBC and CMP in a.m. Prognosis is guarded secondary to multiple comorbidities.
[2022-11-03] MEDS ORDERED: ASPIRIN 325 MG TAB PO SCH (09:00)
[2022-11-03 09:40] LABS: Chol/HDL Ratio 2.53 Ratio; LDL Cholesterol,Calculated 17.7 mg/dL (0.0-131.0)
[2022-11-03 09:50] VITALS: BMI 22.4
[2022-11-03] MEDS: FAMOTIDINE 20 MG TAB PO SCH ×2 (10:20→20:21)
--- NOTE | 2022-11-03 13:00 | P.CRDCN ---
History of Present Illness History of present illness: HISTORY OF PRESENT ILLNESS: This is a 77-year-old male with a past medical history significant for coronary artery disease with previous stenting, hypertension, hyperlipidemia, aortic stenosis, anemia, and liver mass. Patient follows in the office with Dr. Bedoya. We have been asked to see the patient in consultation for chest pain. Patient examined at the bedside. Patient states yesterday he began having pain in the middle of his chest that radiated down both of his arms. The patient states he has been feeling exhausted with minimal activity. He states it has been like this for approximately one month. He also reports sustaining a fall approximately 6 weeks ago. At the time of examination he currently reports mild chest pain and is rating it 2/10. The patient has a history of chronic anemia over the past couple years. He was recently told that he had a liver mass and a possible lung mass and is apparently scheduled to see hematology for possible bi opsy. * EKG reveals sinus mechanism with no signs of acute ischemia. First degree AV block. * Laboratory data: WBC 12.7. Hemoglobin 6.3. Platelet count 447. Sodium 133. Potassium 4.8. BUN 45. Creatinine 1.15. Troponin negative 3. * Current home cardiac medications include lisinopril 5 mg daily, Ranexa 500 mg twice a day, metoprolol succinate 25 mg daily, Imdur 30 mg daily, Plavix 75 mg daily, aspirin 81 mg daily, and Lipitor 40 mg at night * Most recent echocardiogram obtained in March 2022 revealing ejection fraction of 55% with moderate aortic stenosis and mild mitral regurgitation * Cardiac catheterization history: May 2022 with PCI of the LAD with arthrectomy. REVIEW OF SYSTEMS: At the time of my exam: CONSTITUTIONAL: Denies fever or chills. HEENT: Denies blurred vision, vision changes, or eye pain. Denies hemoptysis CARDIOVASCULAR: Denies chest pain. Denies orthopnea. Denies PND. Denies palpitations RESPIRATORY: Denies shortness of breath. GASTROINTESTINAL: Denies abdominal pain. Denies nausea or vomiting. HEMATOLOGIC: Denies bleeding disorders. GENITOURINARY: Denies any blood in urine. SKIN: Denies pruitis. Denies rash. PHYSICAL EXAM: VITAL SIGNS: Reviewed. GENERAL: Well-developed in no acute distress. HEENT: Head is normocephalic. Pupils are equal, round. Sclerae anicteric. Mucous membranes of the mouth are moist. Neck supple. No JVD or thyromegaly. I lateral carotid bruit. LUNGS: Respirations even and unlabored. Lungs essentially clear to auscultation bilaterally. HEART: Regular rate and rhythm. S1 and S2 heard. Systolic murmur noted in aortic area. Brisk carotid upstrokes ABDOMEN: Soft. Nondistended. Nontender. EXTREMITIES: Normal range of motion. No clubbing or cyanosis. Peripheral pulses intact. Diminished lower extremity pulses bilaterally. Left radial pulse diminished. No lower extremity edema NEUROLOGIC: Awake and alert. Oriented x 3. ASSESSMENT: Chest pain, troponins negative 3 Liver mass Acute on chronic anemia, hemoglobin 6.3 Coronary artery disease with previous stenting Hypertension Hyperlipidemia Moderate aortic stenosis PLAN: An acute coronary and has been ruled out Patient's chest pain and shortness of breath may be secondary to acute anemia Patient scheduled to receive 1 unit packed RBCs. Monitor hemoglobin Hematology has been consulted for evaluation Continue aspirin. Will hold Plavix at this time pending hematology evaluation and acute anemia Continue additional cardiac medications Further recommendations pending patient's course Nurse practitioner note has been reviewed by physician. Signing provider agrees with the documented findings, assessment, and plan of care. Dr. Nelson's Addendum Acute symptomatic anemia Chest pain due to acute anemia Prior history of CAD affecting three-vessel status post PCI. Chronic subtotal RCA occlusion without stenting. Moderate aortic stenosis Continue aspirin, hold Plavix. If patient needs biopsy, patient bpm at high risk for low-risk procedure. Patient's cardiovascular risk cannot be modified and stress testing would not help at this time. Patient had recent cardiac workup and does not need any further testing at this time. We will continue to monitor I have personally seen and examined the patient. I have personally performed all the components of medical care documented above including formulating the assessment and plan. I have personally reviewed the relevant labs, imaging and other diagnostics. I have discussed this in detail with my [employer] IN[employer]ER who has helped me with this documentation. I have carefully reviewed this document before finalizing. Total time spent reviewing medical chart, examining patient, counselling patient and documentation [45] mins Thank you for letting cardiology team participating in this patient's care. Dr. Kemar Nelson MD Cardiovascular Disease Past Medical History Past Medical History: Coronary Artery Disease (CAD), Chest Pain / Angina, Diabetes Mellitus, Hyperlipidemia, Hypertension, Vascular Disorder Additional Past Medical History / Comment(s): Hx rectal bleeding, hemorrhoids, diverticulosis., poor circulation -pt states stent left leg., neuropathy of feet., wound on ball of right foot., hospitalization 04/21/22 -04/30/22 for chest pain & anemia-egd and colonoscopy (gastritis & diverticulosis)., & received blood transfusions.,slight blockage carotid arteries.,. *See Cardiology H & P. History of Any Multi-Drug Resistant Organisms: None Reported Past Surgical History: Heart Catheterization, Heart Catheterization With Stent Additional Past Surgical History / Comment(s): *SEE CARDIOLOGY H&P. Hemorrhoidectomy about 40 years ago, colonoscopy, egd, skin cancer., stent left leg, varicose veins removed, heart cath aborted due to low hgb., debridement right foot callus. EGD/colonoscopy last admission negative for any type of bleed per patient Past Anesthesia/Blood Transfusion Reactions: No Reported Reaction Additional Past Anesthesia/Blood Transfusion Reaction / Comment(s): Pt had no reaction to blood transfusions and has had multiple in the past. Date of Last Stent Placement:: UNK Past Psychological History: No Psychological Hx Reported Smoking Status: Former smoker Past Alcohol Use History: Occasional Additional Past Alcohol Use History / Comment(s): Smoked for 50 years, quit 10 years ago per patient. Past Drug Use History: None Reported - Past Family History Father Family Medical History: Cancer Mother Family Medical History: Cancer Medications and Allergies Home Medications Medication Instructions Recorded Confirmed Type Atorvastatin [Lipitor] 40 mg PO HS 08/12/20 11/02/22 History lisinopriL [Zestril] 5 mg PO DAILY 08/12/20 11/02/22 History Multivit-Min/FA/Lycopen/Lutein 1 tab PO DAILY 04/08/22 11/02/22 History [Centrum Silver Men Tablet] Nitroglycerin Sl Tabs [Nitrostat] 0.4 mg SUBLINGUAL Q5M PRN 04/08/22 11/02/22 History Isosorbide Mononitrate ER [Imdur] 30 mg PO DAILY 30 Days #30 tab 04/11/22 11/02/22 Rx Metoprolol Succinate (ER) [Toprol 25 mg PO DAILY 30 Days #30 tab 04/11/22 11/02/22 Rx XL] Ranolazine [Ranexa] 500 mg PO Q12HR 30 Days #60 tab 04/11/22 11/02/22 Rx Aspirin [Adult Low Dose Aspirin EC] 81 mg PO DAILY 05/21/22 11/02/22 History Clopidogrel [Plavix] 75 mg PO DAILY #90 tab 06/01/22 11/02/22 Rx Cholecalciferol [Vitamin D3 (25 25 mcg PO DAILY 11/02/22 11/02/22 History Mcg = 1000 Iu)] Famotidine 40 mg PO BID 11/02/22 11/02/22 History Allergies Allergy/AdvReac Type Severity Reaction Status Date / Time No Known Allergies Allergy Verified 11/02/22 22:48 Physical Exam Vitals: Vital Signs Temp Pulse Pulse Resp BP BP Pulse Ox 11/03/22 08:00 97 11/03/22 05:46 85 100/61 97 11/03/22 03:27 97.7 F 86 16 106/58 97 11/03/22 00:47 18 11/02/22 23:46 97.5 F L 94 16 132/62 100 11/02/22 23:00 88 16 122/61 98 11/02/22 21:18 97.7 F 92 22 101/64 99 Intake and Output 11/02/22 11/03/22 11/03/22 22:59 06:59 14:59 Other: Voiding Method Urinal Weight 74.843 kg 74.843 kg Results 11/03/22 03:22 11/03/22 03:22 Cardiac Enzymes 11/02/22 11/02/22 11/03/22 Range/Units 21:50 21:50 00:30 AST 53 (17-59) U/L Troponin I 0.020 0.025 (0.000-0.034) ng/mL 11/03/22 11/03/22 Range/Units 03:22 03:22 AST 42 (17-59) U/L Troponin I 0.031 (0.000-0.034) ng/mL Coagulation 11/02/22 Range/Units 21:50 PT 11.5 (9.0-12.0) sec APTT 26.7 (22.0-30.0) sec CBC 11/02/22 11/03/22 Range/Units 21:50 03:22 WBC 12.3 H 12.7 H (3.8-10.6) k/uL RBC 2.66 L 2.31 L (4.30-5.90) m/uL Hgb 7.3 L 6.3 L* (13.0-17.5) gm/dL Hct 24.4 L 21.3 L (39.0-53.0) % Plt Count 502 H 447 (150-450) k/uL Comprehensive Metabolic Panel 11/02/22 11/03/22 Range/Units 21:50 03:22 Sodium 134 L 133 L (137-145) mmol/L Potassium 5.2 H 4.8 (3.5-5.1) mmol/L Chloride 100 103 (98-107) mmol/L Carbon Dioxide 21 L 23 (22-30) mmol/L BUN 51 H 45 H (9-20) mg/dL Creatinine 1.19 1.15 (0.66-1.25) mg/dL Glucose 201 H 139 H (74-99) mg/dL Calcium 8.8 8.4 (8.4-10.2) mg/dL AST 53 42 (17-59) U/L ALT 27 24 (4-49) U/L Alkaline Phosphatase 192 H 171 H (38-126) U/L Total Protein 6.6 5.5 L (6.3-8.2) g/dL Albumin 2.6 L 2.2 L (3.5-5.0) g/dL Current Medications Generic Name Dose Route Start Last Admin Trade Name Freq PRN Reason Stop Dose Admin Nitroglycerin 0.4 mg 11/02/22 22:37 Nitroglycerin Sl Tabs 0.4 Mg Tab SUBLINGUAL Q5M PRN Chest Pain Intake and Output 11/02/22 11/03/22 11/03/22 22:59 06:59 14:59 Other: Voiding Method Urinal Weight 74.843 kg 74.843 kg 11/03/22 03:22 11/03/22 03:22
[2022-11-03 16:31] LABS: % Iron Saturation 16.13 (15.00-50.00)
[2022-11-03] MEDS ORDERED: METHYL SALICYLATE-MENTHOL OINT (3 OZ TUBE) TOPICAL PRN (17:16)
--- NOTE | 2022-11-03 18:11 | P.CONS ---
History of Present Illness - Reason for Consult Consult date: 11/03/22 liver mass Requesting physician: Michael Lopez - Chief Complaint weakness and CP - History of Present Illness Mr. Turner is a 76-year-old gentleman with a past medical history significant for coronary artery disease and well-controlled diabetes mellitus type 2 and recently diagnosed liver mass. He is a patient of Dr. Donald Edouard, who was referred to our clinic in 04/2022 for posthospitalization follow-up visit for anemia. During his hospitalization he was found to have NSTEMI with hemoglobin of 6.3. He initially underwent coronary angiogram in late March and was undergoing balloon angioplasty of known RCA lesion, this was aborted during the procedure when he was found to have a hemoglobin of 5. EGD/colonoscopy on 04/29/2022 revealed no evidence of GI blood loss in the upper or lower GI tract. There was a noted large amount of liquid stool in the right colon, which could limit assessment. Stomach and antrum biopsies revealed mild chronic gastritis, which was negative for H. pylori. His hospitalization was complicated by MSSA bacteremia due to infected wound on the right medial foot. Lab work-up for his anemia on 04/30/2022 noted ferritin 57, iron saturation 27.6%, vitamin B12 283, methylmalonic acid 1.4, RBC folate 977, reticulocyte count 3.4%, copper 1249. His normocytic anemia is likely multifactorial due to inflammation from acute infection along with possible vitamin B12 deficiency. Repeat anemia work-up was consistent with iron deficiency along with concurrent vitamin B12 deficiency. His vitamin B12 deficiency could have been due to previous use of metformin. It is unclear if his iron deficiency is due to decreased oral intake given his diet and weight loss of 65 pounds. He received 2 infusions of Feraheme on 06/03/2022 and 07/08/2022 along with 4 weekly injections of vitamin B12 at 1000 mcg followed by monthly vitamin B12 injections. Intrinsic factor and gastric parietal cell antibodies were negative. He received additional 2 doses of Feraheme on 09/27/2022 and 10/05/2022. Patient had CT abdomen/pelvis on 10/05/2022 which noted multiple liver masses with largest in segment 5 and extending to segment 8 measuring 10.6 cm in largest dimension along with intra-abdominal lymphadenopathy, nodular thickening of the left adrenal gland, and bilateral pulmonary nodules concerning for metastatic malignancy. PET/CT on 10/29/22 revealed findings compatible with suspected primary hepatic malignancy such as HCC with metastatic disease to the intra-abdominal, intrathoracic and lower neck lymph nodes. Additionally there is a left adrenal gland nodule as well as innumerable pulmonary nodules. CT guided biopsy of the liver mass is scheduled on 11/15/22. Tumor markers showed, CEA 4.7, AFP <1.8, CA 19-9 elevated at 221. Patient presented to the ER for progressing generalized weakness and chest pain over the last week. He also reports associated dizziness and shortness of breath. Patient denies fever and cough. Denies abdominal pain but reports some abdominal distention. Denies nausea vomiting diarrhea. Denies blood in stool or melena. Serial troponins negative. CBC revealed hemoglobin 7.3 upon admission, today hemoglobin 6.3. 1 unit PRBCs ordered. WBC 12.7, platelets 447,000. ALP 192. AST and ALT WNL. Bilirubin normal. Patient afebrile. SPO2 97% on room air Review of Systems 10 point ROS is negative except as stated in the HPI Past Medical History Past Medical History: Coronary Artery Disease (CAD), Chest Pain / Angina, Diabetes Mellitus, Hyperlipidemia, Hypertension, Vascular Disorder Additional Past Medical History / Comment(s): Hx rectal bleeding, hemorrhoids, diverticulosis., poor circulation -pt states stent left leg., neuropathy of feet., wound on ball of right foot., hospitalization 04/21/22 -04/30/22 for chest pain & anemia-egd and colonoscopy (gastritis & diverticulosis)., & received blood transfusions.,slight blockage carotid arteries.,. *See Cardiology H & P. History of Any Multi-Drug Resistant Organisms: None Reported Past Surgical History: Heart Catheterization, Heart Catheterization With Stent Additional Past Surgical History / Comment(s): *SEE CARDIOLOGY H&P. Hemorrhoidectomy about 40 years ago, colonoscopy, egd, skin cancer., stent left leg, varicose veins removed, heart cath aborted due to low hgb., debridement right foot callus. EGD/colonoscopy last admission negative for any type of bleed per patient Past Anesthesia/Blood Transfusion Reactions: No Reported Reaction Additional Past Anesthesia/Blood Transfusion Reaction / Comm: Pt had no reaction to blood transfusions and has had multiple in the past. Date of Last Stent Placement:: UNK Past Psychological History: No Psychological Hx Reported Smoking Status: Former smoker Past Alcohol Use History: Occasional Additional Past Alcohol Use History / Comment(s): Smoked for 50 years, quit 10 years ago per patient. Past Drug Use History: None Reported - Past Family History Father Family Medical History: Cancer Mother Family Medical History: Cancer Medications and Allergies Home Medications Medication Instructions Recorded Confirmed Type Atorvastatin [Lipitor] 40 mg PO HS 08/12/20 11/02/22 History lisinopriL [Zestril] 5 mg PO DAILY 08/12/20 11/02/22 History Multivit-Min/FA/Lycopen/Lutein 1 tab PO DAILY 04/08/22 11/02/22 History [Centrum Silver Men Tablet] Nitroglycerin Sl Tabs [Nitrostat] 0.4 mg SUBLINGUAL Q5M PRN 04/08/22 11/02/22 History Isosorbide Mononitrate ER [Imdur] 30 mg PO DAILY 30 Days #30 tab 04/11/22 11/02/22 Rx Metoprolol Succinate (ER) [Toprol 25 mg PO DAILY 30 Days #30 tab 04/11/22 11/02/22 Rx XL] Ranolazine [Ranexa] 500 mg PO Q12HR 30 Days #60 tab 04/11/22 11/02/22 Rx Aspirin [Adult Low Dose Aspirin EC] 81 mg PO DAILY 05/21/22 11/02/22 History Clopidogrel [Plavix] 75 mg PO DAILY #90 tab 06/01/22 11/02/22 Rx Cholecalciferol [Vitamin D3 (25 25 mcg PO DAILY 11/02/22 11/02/22 History Mcg = 1000 Iu)] Famotidine 40 mg PO BID 11/02/22 11/02/22 History Allergies Allergy/AdvReac Type Severity Reaction Status Date / Time No Known Allergies Allergy Verified 11/02/22 22:48 Physical Exam Vitals: Vital Signs Temp Pulse Pulse Resp BP BP Pulse Ox 11/03/22 08:00 97 11/03/22 07:00 97.4 F L 91 16 102/62 91 L 11/03/22 05:46 85 100/61 97 11/03/22 03:27 97.7 F 86 16 106/58 97 11/03/22 00:47 18 11/02/22 23:46 97.5 F L 94 16 132/62 100 11/02/22 23:00 88 16 122/61 98 11/02/22 21:18 97.7 F 92 22 101/64 99 Intake and Output 11/02/22 11/03/22 11/03/22 22:59 06:59 14:59 Other: Voiding Method Urinal Weight 74.843 kg 74.843 kg - Constitutional General appearance: average body habitus, no acute distress - EENT Eyes: anicteric sclerae, EOMI ENT: hearing grossly normal - Neck right cervical lymphadenopathy Neck: lymphadenopathy - Respiratory Respiratory: bilateral: CTA - Cardiovascular Rhythm: regular Heart sounds: normal: S1, S2 Abnormal Heart Sounds: no systolic murmur, no diastolic murmur, no rub, no S3 Gallop, no S4 Gallop, no click, no other leg Peripheral Edema: right: Trace, Pitting - Gastrointestinal mildly distended General gastrointestinal: normal bowel sounds, no tenderness - Integumentary Integumentary: no cyanotic, no jaundiced - Neurologic grossly intact - Musculoskeletal Musculoskeletal: generalized weakness - Psychiatric Psychiatric: A&O x's 3, appropriate affect, intact judgment & insight Results CBC & Chem 7: 11/03/22 03:22 11/03/22 03:22 Labs: Abnormal Lab Results - Last 24 Hours (Table) 11/02/22 11/02/22 11/02/22 Range/Units 21:50 21:50 21:50 WBC 12.3 H (3.8-10.6) k/uL RBC 2.66 L (4.30-5.90) m/uL Hgb 7.3 L (13.0-17.5) gm/dL Hct 24.4 L (39.0-53.0) % MCHC 29.8 L (31.0-37.0) g/dL RDW 21.3 H (11.5-15.5) % Plt Count 502 H (150-450) k/uL Neutrophils # 10.7 H (1.3-7.7) k/uL Lymphocytes # 0.8 L (1.0-4.8) k/uL Sodium 134 L (137-145) mmol/L Potassium 5.2 H (3.5-5.1) mmol/L Carbon Dioxide 21 L (22-30) mmol/L BUN 51 H (9-20) mg/dL Glucose 201 H (74-99) mg/dL Alkaline Phosphatase 192 H (38-126) U/L Total Protein (6.3-8.2) g/dL Albumin 2.6 L (3.5-5.0) g/dL Crossmatch See Detail 11/03/22 11/03/22 Range/Units 03:22 03:22 WBC 12.7 H (3.8-10.6) k/uL RBC 2.31 L (4.30-5.90) m/uL Hgb 6.3 L* (13.0-17.5) gm/dL Hct 21.3 L (39.0-53.0) % MCHC 29.5 L (31.0-37.0) g/dL RDW 21.6 H (11.5-15.5) % Plt Count (150-450) k/uL Neutrophils # 10.9 H (1.3-7.7) k/uL Lymphocytes # 0.9 L (1.0-4.8) k/uL Sodium 133 L (137-145) mmol/L Potassium (3.5-5.1) mmol/L Carbon Dioxide (22-30) mmol/L BUN 45 H (9-20) mg/dL Glucose 139 H (74-99) mg/dL Alkaline Phosphatase 171 H (38-126) U/L Total Protein 5.5 L (6.3-8.2) g/dL Albumin 2.2 L (3.5-5.0) g/dL Crossmatch Comments: PET CT reviewed Assessment and Plan (1) Liver mass Current Visit: Yes Status: Acute Priority: High Code(s): R16.0 - HEPATOMEGALY, NOT ELSEWHERE CLASSIFIED SNOMED Code(s): 689746841 (2) Anemia Current Visit: Yes Status: Acute Priority: High Code(s): D64.9 - ANEMIA, UNSPECIFIED SNOMED Code(s): 257566665 Plan: Liver mass: -Patient had CT abdomen/pelvis on 10/05/2022 which noted multiple liver masses with largest in segment 5 and extending to segment 8 measuring 10.6 cm in largest dimension along with intra-abdominal lymphadenopathy, nodular thickening of the left adrenal gland, and bilateral pulmonary nodules concerning for metastatic malignancy. PET/CT on 10/29/22 revealed findings compatible with suspected primary hepatic malignancy such as HCC with metastatic disease to the intra-abdominal, intrathoracic and lower neck lymph nodes. Additionally there is a left adrenal gland nodule as well as innumerable pulmonary nodules. -CT guided biopsy of the liver mass is scheduled on 11/15/22. -Tumor markers showed, CEA 4.7, AFP <1.8, CA 19-9 elevated at 221. -Will obtain US neck to evaluate right cervical LN, to see if biopsy is obtainable -F/u scheduled with Dr. Donald Edouard on 11/18 to discuss pathology and treatment options Anemia: -Severe anemia noted during hospitalization 03/2022 while undergoing balloon angioplasty of known RCA lesion and again during admission in 04/2022, both requiring transfusions. EGD/colonoscopy on 04/29/2022 revealed no evidence of GI blood loss in the upper or lower GI tract. There was a noted large amount of liquid stool in the right colon, which could limit assessment. Stomach and antrum biopsies revealed mild chronic gastritis, which was negative for H. pylori. Lab work-up for his anemia on 04/30/2022 noted ferritin 57, iron saturation 27.6%, vitamin B12 283, methylmalonic acid 1.4, RBC folate 977, reticulocyte count 3.4%, copper 1249. His normocytic anemia was thought to be likely multifactorial due to inflammation from acute infection along with possible vitamin B12 deficiency. Repeat anemia work-up was consistent with iron deficiency along with concurrent vitamin B12 deficiency. His vitamin B12 defic iency could have been due to previous use of metformin. It was unclear if his iron deficiency was due to decreased oral intake given his diet and weight loss of 65 pounds. However, after findings of CT and PET, anemia is likely multifactorial r/t GI malignancy superimposed by poor intake/weight loss. Patient received 2 infusions of Feraheme on 06/03/2022 and 07/08/2022 along with 4 weekly injections of vitamin B12 at 1000 mcg followed by monthly vitamin B12 injections. Intrinsic factor and gastric parietal cell antibodies were negative. He received additional 2 doses of Feraheme on 09/27/2022 and 10/05/2022. Iron studies on 10/22/22 showed, iron 26, iron saturation 14%, ferritin 997 -Upon admission CBC revealed hemoglobin 7.3, today hemoglobin 6.3. 1 unit PRBCs ordered. WBC 12.7, platelets 447,000. -Anemia workup ordered. -Will continue to monitor counts. Please transfuse for hemoglobin less than 8, as chest pain is thought to be related to symptomatic anemia attests: I have performed H&P and developed impression and plan of care for patient, discussed with dictator. I agree with dictated note, documented as a scribe
[2022-11-03] MEDS: ATORVASTATIN 40 MG TAB PO SCH (20:21)
--- NOTE | 2022-11-03 20:39 | US ---
EXAMINATION TYPE: US thyroid st tissue head/neck DATE OF EXAM: 11/03/2022 COMPARISON: NONE CLINICAL INDICATION: Male, 77 years old with history of right sided cervical lymphadenopathy; right s ided lymphadenopathy. Pt's states he had a PET scan and it showed lymphadenopathy in right neck. A cluster of lymph nodes visualized in the right neck adjacent to the IJV. The largest is measuring 2 .1 x 1.8 x 1.3cm. This lymph node appears enlarged and heterogeneous, and is missing the fatty hilum. No enlarged lymph nodes visualized on the left side. IMPRESSION: Prominent soft tissue masses within the right neck. Lymphadenopathy is suspected. Additional workup w ould be of benefit, consider CT soft tissue neck.
--- NOTE | 2022-11-04 09:12 | P.PN ---
Subjective Progress Note Date: 11/04/22 Principal diagnosis: Weakness, liver mass This is a 77-year-old male with a known history of chronic anemia who was recently diagnosed with a liver mass over the last few weeks. He presented to the emergency room for complaints of progressing generalized weakness and chest pain over the last week. He also reported dizziness and shortness of breath. He received 1 unit of packed red blood cells yesterday repeat labs are pending at time of dictation. This morning patient is seen sitting in chair at bedside. He reports he is still very fatigued and does look pale this morning. Hematology and cardiology has also been consulted. Objective - Vital Signs Vital signs: Vital Signs Temp 97.8 F 11/04/22 07:00 Pulse 91 11/04/22 07:00 Resp 16 11/04/22 07:00 BP 93/55 11/04/22 07:00 Pulse Ox 97 11/04/22 07:00 FiO2 Intake & Output 11/03/22 11/04/22 11/04/22 18:59 06:59 18:59 Intake Total 310 Balance 310 Weight 74.843 kg Intake: Blood Product 310 Rc As-1 Unit 310 [id number] Other: Voiding Method Toilet Toilet # Voids 1 1 - Constitutional General appearance: Present: cooperative, no acute distress - EENT Eyes: Present: PERRLA - Neck Neck: Present: normal ROM. Absent: lymphadenopathy, rigidity - Respiratory Respiratory: bilateral: CTA - Cardiovascular Rhythm: regular Heart sounds: normal: S1, S2 - Gastrointestinal General gastrointestinal: Present: soft. Absent: tenderness - Integumentary Integumentary: Present: pale - Musculoskeletal Musculoskeletal: Present: generalized weakness - Psychiatric Psychiatric: Present: A&O x's 3, appropriate affect, intact judgment & insight - Labs CBC & Chem 7: 11/03/22 03:22 11/03/22 03:22 Labs: Abnormal Lab Results - Last 24 Hours (Table) 11/02/22 11/03/22 11/03/22 Range/Units 21:50 03:22 03:22 Iron 30 L (65-175) UG/DL TIBC 186 L (228-460) UG/DL Transferrin 133.0 L (204.0-354.0) mg/dL Ferritin 695.0 H (22.0-322.0) ng/mL HDL Cholesterol 23.70 L (40.00-60.00) mg/dL Vitamin B12 1059.0 H (200.0-944.0) pg/mL Crossmatch See Detail Assessment and Plan (1) Anemia Current Visit: Yes Status: Acute Priority: High Code(s): D64.9 - ANEMIA, UNSPECIFIED SNOMED Code(s): 966255482 (2) Liver mass Current Visit: Yes Status: Acute Priority: High Code(s): R16.0 - HEPATOMEGALY, NOT ELSEWHERE CLASSIFIED SNOMED Code(s): 738415632 (3) Angina at rest Current Visit: No Status: Acute Code(s): I20.8 - OTHER FORMS OF ANGINA PECTORIS SNOMED Code(s): 646727712 (4) CAD (coronary artery disease) Current Visit: No Status: Acute Code(s): I25.10 - ATHSCL HEART DISEASE OF [place] CORONARY ARTERY W/O ANG PCTRS SNOMED Code(s): 25707413 (5) Diabetes Current Visit: No Status: Acute Code(s): E11.9 - TYPE 2 DIABETES MELLITUS WITHOUT COMPLICATIONS SNOMED Code(s): 85976704 Plan: Appreciate multiple consultants input. Await labs today, hematology states to transfuse for hemoglobin less than 8 Repeat labs in the morning. Patient seen and evaluated by nurse practitioner, physician in agreement with plan
[2022-11-04] MEDS: lisinopriL 5 MG TAB PO SCH (09:13)
[2022-11-04] MEDS: METOPROLOL SUCCINATE (ER) 25 MG TAB.ER.24H PO SCH (09:13)
[2022-11-04] MEDS: ASPIRIN 81 MG PO SCH (09:13)
[2022-11-04] MEDS: FAMOTIDINE 20 MG TAB PO SCH ×2 (09:13→20:15)
[2022-11-04] MEDS: RANOLAZINE 500 MG TAB.ER.12H PO SCH ×2 (09:13→20:15)
[2022-11-04] MEDS: ISOSORBIDE MONONITRATE ER 30 MG TAB.ER.24H PO SCH (09:13)
--- NOTE | 2022-11-04 10:42 | P.PN ---
Subjective HISTORY OF PRESENT ILLNESS: This is a 77-year-old male with a past medical history significant for coronary artery disease with previous stenting, hypertension, hyperlipidemia, aortic stenosis, anemia, and liver mass. Patient follows in the office with Dr. Bedoya. We have been asked to see the patient in consultation for chest pain. Patient examined at the bedside. Patient states yesterday he began having pain in the middle of his chest that radiated down both of his arms. The patient states he has been feeling exhausted with minimal activity. He states it has been like this for approximately one month. He also reports sustaining a fall approximately 6 weeks ago. At the time of examination he currently reports mild chest pain and is rating it 2/10. The patient has a history of chronic anemia over the past couple years. He was recently told that he had a liver mass and a possible lung mass and is apparently scheduled to see hematology for possible biopsy. * EKG reveals sinus mechanism with no signs of acute ischemia. First degree AV block. * Laboratory data: WBC 12.7. Hemoglobin 6.3. Platelet count 447. Sodium 133. Potassium 4.8. BUN 45. Creatinine 1.15. Troponin negative 3. * Current home cardiac medications include lisinopril 5 mg daily, Ranexa 500 mg twice a day, metoprolol succinate 25 mg daily, Imdur 30 mg daily, Plavix 75 mg daily, aspirin 81 mg daily, and Lipitor 40 mg at night * Most recent echocardiogram obtained in March 2022 revealing ejection fraction of 55% with moderate aortic stenosis and mild mitral regurgitation * Cardiac catheterization history: May 2022 with PCI of the LAD with arthrectomy. 11/04/2022 Patient examined this morning at the bedside. He continues to report generalized weakness. He denies any chest pain or pressure. He denies any shortness of breath. Patient received RBC transfusion yesterday for hemoglobin of 6.3. Repeat hemoglobin is not resulted at the time of this dictation. He has been evaluated by hematology/oncology and is scheduled for liver biopsy on 11/15/2022 PHYSICAL EXAM: VITAL SIGNS: Reviewed. GENERAL: Well-developed in no acute distress. HEENT: Head is normocephalic. Pupils are equal, round. Sclerae anicteric. Mucous membranes of the mouth are moist. Neck supple. No JVD or thyromegaly. I lateral carotid bruit. LUNGS: Respirations even and unlabored. Lungs essentially clear to auscultation bilaterally. HEART: Regular rate and rhythm. S1 and S2 heard. Systolic murmur noted in aortic area. Brisk carotid upstrokes ABDOMEN: Soft. Nondistended. Nontender. EXTREMITIES: Normal range of motion. No clubbing or cyanosis. Peripheral pulses intact. Diminished lower extremity pulses bilaterally. Left radial pulse diminished. No lower extremity edema NEUROLOGIC: Awake and alert. Oriented x 3. ASSESSMENT: Chest pain, troponins negative 3 Liver mass Acute on chronic anemia, hemoglobin 6.3 Coronary artery disease with previous stenting Hypertension Hyperlipidemia Moderate aortic stenosis PLAN: Continue current cardiac medications Continue to hold Plavix. Patient scheduled for liver biopsy on 11/15/2022. Patient may resume his Plavix 48 hours after procedure Patient is stable for discharge from a cardiac standpoint We will sign off. Please reconsult if needed. Nurse practitioner note has been reviewed by physician. Signing provider agrees with the documented findings, assessment, and plan of care. Dr. Nelson's Addendum I agree with above I have personally seen and examined the patient. I have personally performed all the components of medical care documented above including detailed hisotry, review of system, physican exam, MDM and formulating the assessment and plan. I have personally reviewed the relevant labs, imaging and other diagnostics. I have discussed this in detail with my [employer] WORKER who has helped me with this documentation. I have carefully reviewed this document before finalizing. Total time spent reviewing medical chart, examining patient, counselling patient and documentation 30 mins Thank you for letting cardiology team participating in this patient's care. Dr. Kemar Nelson MD Cardiovascular Disease Objective - Vital Signs Vital signs: Vital Signs Temp 97.8 F 11/04/22 07:00 Pulse 91 11/04/22 07:00 Resp 16 11/04/22 07:00 BP 93/55 11/04/22 07:00 Pulse Ox 97 11/04/22 09:19 FiO2 21 11/04/22 09:19 Intake & Output 11/03/22 11/04/22 11/04/22 18:59 06:59 18:59 Intake Total 310 Balance 310 Weight 74.843 kg Intake: Blood Product 310 Rc As-1 Unit 310 [id number] Other: Voiding Method Toilet Toilet # Voids 1 1 - Labs CBC & Chem 7: 11/03/22 03:22 11/03/22 03:22 Labs: Abnormal Lab Results - Last 24 Hours (Table) 11/02/22 11/03/22 Range/Units 21:50 03:22 Iron 30 L (65-175) UG/DL TIBC 186 L (228-460) UG/DL Transferrin 133.0 L (204.0-354.0) mg/dL Ferritin 695.0 H (22.0-322.0) ng/mL Vitamin B12 1059.0 H (200.0-944.0) pg/mL Crossmatch See Detail
[2022-11-04] MEDS: SODIUM FERRIC GLUCONAT-SUCROSE 125 MG in SODIUM CHLORIDE 0.9% 100 ML IVPB SCH (12:32)
[2022-11-04 13:23] LABS: HCT 25.1 % (39.6-50.0); HGB 7.4 d/dL (12.0-15.0); MCH 27.6 pg (27.0-32.0); MCHC 29.5 d/dL (32.0-37.0); MCV 93.7 FL (80.0-97.0); Mean Platelet Volume 9.6 FL (9.5-12.2); NRBC Per 100 WBC 0 X 10*3/uL (0.00-0.01); Platelet Count 405 X 10*3/uL (140-440); RBC 2.68 X 10*6/uL (4.40-5.60); RDW 22.3 % (11.5-14.5); WBC 14.91 X 10*3/uL (4.50-10.00)
[2022-11-04 13:39] LABS: ALT 25 U/L (10-49); AST 46 U/L (14-35); Albumin 2.2 d/dL (3.8-4.9); Albumin/Globulin Ratio 0.63 Ratio (1.60-3.17); Alkaline Phosphatase 173 U/L (41-126); BUN/Creat Ratio 38.45 Ratio (12.00-20.00); Blood Urea Nitrogen 42.3 mg/dL (9.0-27.0); Calcium 8.7 mg/dL (8.7-10.3); Chloride 106 mmol/L (96-109); Globulin 3.5 d/dL (1.6-3.3); Glucose 166 mg/dL (70-110); Potassium 4.8 mmol/L (3.5-5.5); Sodium 138 mmol/L (135-145); Total Bilirubin 0.6 mg/dL (0.3-1.2); Total Protein 5.7 d/dL (6.2-8.2)
--- NOTE | 2022-11-04 13:44 | CT ---
EXAMINATION TYPE: CT brain wo con CT DLP: 1121 mGycm, Automated exposure control for dose reduction was used. DATE OF EXAM: 11/04/2022 1:35 PM COMPARISON: Prior CT Brain from 04/09/2022 . CLINICAL INDICATION:Male, 77 years old with history of hallucinating, ams, hallucinations TECHNIQUE: Brain: Multiple axial CT images of the brain were obtained without IV contrast. Coronal and sagittal reformats reviewed. FINDINGS: Brain: Extra-axial spaces: No abnormal extra-axial fluid collections. Ventricular system: Dilatation in proportion to cerebral atrophy. Cerebral parenchyma: Cerebral atrophy. No acute intraparenchymal hemorrhage or mass effect. The matamoros -white junction is well differentiated. Scattered hypoattenuating areas are seen within the white mat ter. Cerebellum: Unremarkable. Mass effect: No evidence of midline shift. Intracranial vasculature: Atherosclerotic calcifications of the intracranial vessels. Soft tissues: Normal. Calvarium/osseous structures: No depressed skull fracture. Paranasal sinuses and mastoid air cells: Clear Visualized orbits: Bilateral aphakia IMPRESSION: 1. No acute intracranial process. 2. Nonspecific white matter changes, likely secondary to chronic small vessel ischemic disease.
--- NOTE | 2022-11-04 18:34 | P.PN ---
Subjective Progress Note Date: 11/04/22 Principal diagnosis: weakness, anemia At today's visit patient is resting comfortably in bed, family at bedside. Patient reports feeling improved today. He denies chest pain. Reports persisting SOB upon exertion but is resolved at rest. S/p 1 unit PRBC, with appropriate response in hemoglobin. Objective - Vital Signs Vital signs: Vital Signs Temp 97.5 F L 11/04/22 15:00 Pulse 80 11/04/22 15:00 Resp 16 11/04/22 15:00 BP 93/61 11/04/22 15:00 Pulse Ox 98 11/04/22 15:00 FiO2 21 11/04/22 09:19 Intake & Output 11/03/22 11/04/22 11/04/22 18:59 06:59 18:59 Intake Total 310 218 Balance 310 218 Weight 74.843 kg Intake: Intake, IV Titration 100 Amount Sodium Ferric Gluconat- 100 Sucrose 125 mg In Sodium Chloride 0.9% 100 ml @ 100 mls/hr IVPB DAILY [facility] Rx#:[id number] Oral 118 Blood Product 310 Rc As-1 Unit 310 [id number] Other: Voiding Method Toilet Toilet # Voids 1 1 - Constitutional General appearance: Present: average body habitus, no acute distress - EENT Eyes: Present: anicteric sclerae, EOMI ENT: Present: hearing grossly normal - Respiratory Details: breathing is even and unlabored - Cardiovascular Details: skin warm and dry - Integumentary Integumentary: Present: pale - Neurologic Neurologic Comment(s): grossly intact - Musculoskeletal Musculoskeletal: Present: generalized weakness - Psychiatric Psychiatric: Present: A&O x's 3, appropriate affect, intact judgment & insight - Labs CBC & Chem 7: 11/04/22 06:47 11/04/22 06:36 Labs: Abnormal Lab Results - Last 24 Hours (Table) 11/03/22 11/04/22 11/04/22 Range/Units 15:48 06:36 06:47 WBC 14.91 H (4.50-10.00) X 10*3/uL RBC 2.68 L (4.40-5.60) X 10*6/uL Hgb 7.4 L (12.0-15.0) d/dL Hct 25.1 L (39.6-50.0) % MCHC 29.5 L (32.0-37.0) d/dL RDW 22.3 H (11.5-14.5) % Carbon Dioxide 19.0 L (21.6-31.8) mmol/L Anion Gap 13.00 H (4.00-12.00) mmol/L BUN 42.3 H (9.0-27.0) mg/dL BUN/Creatinine Ratio 38.45 H (12.00-20.00) Ratio Glucose 166 H (70-110) mg/dL AST 46 H (14-35) U/L Alkaline Phosphatase 173 H (41-126) U/L Total Protein 5.7 L (6.2-8.2) d/dL Albumin 2.2 L (3.8-4.9) d/dL Globulin 3.5 H (1.6-3.3) d/dL Albumin/Globulin Ratio 0.63 L (1.60-3.17) Ratio Copper 1535 H (665-1480) ug/L Assessment and Plan (1) Liver mass Current Visit: Yes Status: Acute Priority: High Code(s): R16.0 - HEPATOMEGALY, NOT ELSEWHERE CLASSIFIED SNOMED Code(s): 296813199 (2) Anemia Current Visit: Yes Status: Acute Priority: High Code(s): D64.9 - ANEMIA, UNSPECIFIED SNOMED Code(s): 748253567 Plan: Liver mass: -Patient had CT abdomen/pelvis on 10/05/2022 which noted multiple liver masses with largest in segment 5 and extending to segment 8 measuring 10.6 cm in largest dimension along with intra-abdominal lymphadenopathy, nodular thickening of the left adrenal gland, and bilateral pulmonary nodules concerning for m etastatic malignancy. PET/CT on 10/29/22 revealed findings compatible with suspected primary hepatic malignancy such as HCC with metastatic disease to the intra-abdominal, intrathoracic and lower neck lymph nodes. Additionally there is a left adrenal gland nodule as well as innumerable pulmonary nodules. -CT guided biopsy of the liver mass was scheduled for 11/15/22. -Tumor markers showed, CEA 4.7, AFP <1.8, CA 19-9 elevated at 221. -Will obtain US neck to evaluate right cervical LN, to see if biopsy is obtainable. Ultrasound neck revealed prominent soft tissue masses within the right neck. A cluster of lymph nodes visualized in the right neck adjacent to the IJV. Largest measuring at 2.1 x 1.8 x 1.3 cm. The lymph node appears enlarged and heterogeneous. No enlarged lymph nodes visualized on the left side. IR consult placed for biopsy of right cervical LN. Spoke with IR nurse, biopsy will have to be held for 5 days due to plavix administration on 11/02. Will schedule LN biopsy outpatient -F/u scheduled with Dr. Donald Edouard upon discharge Anemia: -Severe anemia noted during hospitalization 03/2022 while undergoing balloon angioplasty of known RCA lesion and again during admission in 04/2022, both requiring transfusions. EGD/colonoscopy on 04/29/2022 revealed no evidence of GI blood loss in the upper or lower GI tract. There was a noted large amount of liquid stool in the right colon, which could limit assessment. Stomach and antrum biopsies revealed mild chronic gastritis, which was negative for H. pylori. Lab work-up for his anemia on 04/30/2022 noted ferritin 57, iron saturation 27.6%, vitamin B12 283, methylmalonic acid 1.4, RBC folate 977, reticulocyte count 3.4%, copper 1249. His normocytic anemia was thought to be likely multifactorial due to inflammation from acute infection along with possible vitamin B12 deficiency. Repeat anemia work-up was consistent with iron deficiency along with concurrent vitamin B12 deficiency. His vitamin B12 deficiency could have been due to previous use of metformin. It was unclear if his iron deficiency was due to decreased oral intake given his diet and weight loss of 65 pounds. However, after findings of CT and PET, anemia is likely multifactorial r/t GI malignancy superimposed by poor intake/weight loss. Patient received 2 infusions of Feraheme on 06/03/2022 and 07/08/2022 along with 4 weekly injections of vitamin B12 at 1000 mcg followed by monthly vitamin B12 injections. Intrinsic factor and gastric parietal cell antibodies were negative. He received additional 2 doses of Feraheme on 09/27/2022 and 10/05/2022. Iron studies on 10/22/22 showed, iron 26, iron saturation 14%, ferritin 997 -Upon admission CBC revealed hemoglobin 7.3. Hgb yesterday 6.3, s/p 1 unit PRBC, with appropriate response in hemoglobin. Hgb 7.4 -Anemia workup ordered. Iron 30, iron saturation 16%, ferritin 695. Ferritin likely elevated due to inflammation. Parenteral iron ordered x 3 doses for additional hemoglobin support. No vitamin B12 or folate deficiency noted -Will continue to monitor counts. Please transfuse for hemoglobin less than 8, as chest pain is thought to be related to symptomatic anemia
[2022-11-04] MEDS: ATORVASTATIN 40 MG TAB PO SCH (20:15)
--- NOTE | 2022-11-05 08:07 | P.PN ---
Subjective Principal diagnosis: Liver mass with anemia This 77-year-old white male admitted for symptomatically anemia with chest pain and liver mass. Appreciate multiple consultants input. He seems to be much more tired today. Hemoglobin was 7.4 yesterday we'll give another unit of PRBC today. No fever or chills. No other voiding difficulties. Objective - Vital Signs Vital signs: Vital Signs Temp 97.9 F 11/05/22 00:58 Pulse 56 L 11/05/22 02:30 Resp 18 11/05/22 02:30 BP 99/61 11/05/22 00:58 Pulse Ox 96 11/05/22 00:58 FiO2 21 11/04/22 09:19 Intake & Output 11/04/22 11/05/22 11/05/22 18:59 06:59 18:59 Intake Total 218 Balance 218 Intake: Intake, IV Titration 100 Amount Sodium Ferric Gluconat- 100 Sucrose 125 mg In Sodium Chloride 0.9% 100 ml @ 100 mls/hr IVPB DAILY [facility] Rx#:[id number] Oral 118 Other: Voiding Method Toilet # Voids 1 - Constitutional General appearance: Present: cooperative, no acute distress - Neck Neck: Absent: lymphadenopathy - Respiratory Respiratory: bilateral: CTA - Cardiovascular Rhythm: regular Heart sounds: normal: S1, S2 Abnormal Heart Sounds: Absent: S3 Gallop - Gastrointestinal General gastrointestinal: Present: soft. Absent: tenderness - Musculoskeletal Musculoskeletal: Present: generalized weakness - Psychiatric Psychiatric: Present: A&O x's 3 - Labs CBC & Chem 7: 11/04/22 06:47 11/04/22 06:36 Labs: Abnormal Lab Results - Last 24 Hours (Table) 11/02/22 11/03/22 11/04/22 Range/Units 21:50 15:48 06:36 WBC (4.50-10.00) X 10*3/uL RBC (4.40-5.60) X 10*6/uL Hgb (12.0-15.0) d/dL Hct (39.6-50.0) % MCHC (32.0-37.0) d/dL RDW (11.5-14.5) % Carbon Dioxide 19.0 L (21.6-31.8) mmol/L Anion Gap 13.00 H (4.00-12.00) mmol/L BUN 42.3 H (9.0-27.0) mg/dL BUN/Creatinine Ratio 38.45 H (12.00-20.00) Ratio Glucose 166 H (70-110) mg/dL AST 46 H (14-35) U/L Alkaline Phosphatase 173 H (41-126) U/L Total Protein 5.7 L (6.2-8.2) d/dL Albumin 2.2 L (3.8-4.9) d/dL Globulin 3.5 H (1.6-3.3) d/dL Albumin/Globulin Ratio 0.63 L (1.60-3.17) Ratio Copper 1535 H (665-1480) ug/L Crossmatch See Detail 11/04/22 Range/Units 06:47 WBC 14.91 H (4.50-10.00) X 10*3/uL RBC 2.68 L (4.40-5.60) X 10*6/uL Hgb 7.4 L (12.0-15.0) d/dL Hct 25.1 L (39.6-50.0) % MCHC 29.5 L (32.0-37.0) d/dL RDW 22.3 H (11.5-14.5) % Carbon Dioxide (21.6-31.8) mmol/L Anion Gap (4.00-12.00) mmol/L BUN (9.0-27.0) mg/dL BUN/Creatinine Ratio (12.00-20.00) Ratio Glucose (70-110) mg/dL AST (14-35) U/L Alkaline Phosphatase (41-126) U/L Total Protein (6.2-8.2) d/dL Albumin (3.8-4.9) d/dL Globulin (1.6-3.3) d/dL Albumin/Globulin Ratio (1.60-3.17) Ratio Copper (665-1480) ug/L Crossmatch Assessment and Plan (1) Liver mass Current Visit: Yes Status: Acute Priority: High Code(s): R16.0 - HEPATOMEGALY, NOT ELSEWHERE CLASSIFIED SNOMED Code(s): 231687660 (2) Anemia Current Visit: Yes Status: Acute Priority: High Code(s): D64.9 - ANEMIA, UNSPECIFIED SNOMED Code(s): 139599137 (3) Angina at rest Current Visit: No Status: Acute Code(s): I20.8 - OTHER FORMS OF ANGINA PECTORIS SNOMED Code(s): 695429139 (4) CAD (coronary artery disease) Current Visit: No Status: Acute Code(s): I25.10 - ATHSCL HEART DISEASE OF [place] CORONARY ARTERY W/O ANG PCTRS SNOMED Code(s): 38072149 (5) Diabetes Current Visit: No Status: Acute Code(s): E11.9 - TYPE 2 DIABETES MELLITUS WITHOUT COMPLICATIONS SNOMED Code(s): 12091844 Plan: Appreciate cardiology input. Appreciate oncology input as well. We will go ahead and transfuse 1 more unit of PRBC per Check labs in a.m. Await interventional radiology workup. [facility] will be covering for the weekend..
[2022-11-05 08:53] LABS: Methylmalonic Acid 0.32 umol/L (<0.40)
[2022-11-05] MEDS: lisinopriL 5 MG TAB PO SCH (09:03)
[2022-11-05] MEDS: FAMOTIDINE 20 MG TAB PO SCH ×2 (09:12→20:19)
[2022-11-05] MEDS: METOPROLOL SUCCINATE (ER) 25 MG TAB.ER.24H PO SCH (09:12)
[2022-11-05] MEDS: ASPIRIN 81 MG PO SCH (09:12)
[2022-11-05] MEDS: SODIUM FERRIC GLUCONAT-SUCROSE 125 MG in SODIUM CHLORIDE 0.9% 100 ML IVPB SCH (09:12)
[2022-11-05] MEDS: RANOLAZINE 500 MG TAB.ER.12H PO SCH ×2 (09:12→20:19)
[2022-11-05] MEDS: ISOSORBIDE MONONITRATE ER 30 MG TAB.ER.24H PO SCH (09:12)
[2022-11-05 11:13] LABS: HCT 23.8 % (39.6-50.0); HGB 6.9 d/dL (12.0-15.0); MCH 27.7 pg (27.0-32.0); MCV 95.6 FL (80.0-97.0); Mean Platelet Volume 9.6 FL (9.5-12.2); NRBC Per 100 WBC 0 X 10*3/uL (0.00-0.01); Platelet Count 412 X 10*3/uL (140-440); RBC 2.49 X 10*6/uL (4.40-5.60); RDW 22.6 % (11.5-14.5); WBC 16.68 X 10*3/uL (4.50-10.00)
[2022-11-05 11:26] LABS: ALT 24 U/L (10-49); AST 45 U/L (14-35); Albumin 2.1 d/dL (3.8-4.9); Albumin/Globulin Ratio 0.66 Ratio (1.60-3.17); Alkaline Phosphatase 157 U/L (41-126); BUN/Creat Ratio 36.93 Ratio (12.00-20.00); Blood Urea Nitrogen 55.4 mg/dL (9.0-27.0); Calcium 8.6 mg/dL (8.7-10.3); Carbon Dioxide 18.6 mmol/L (21.6-31.8); Chloride 106 mmol/L (96-109); Globulin 3.2 d/dL (1.6-3.3); Glucose 199 mg/dL (70-110); Sodium 138 mmol/L (135-145); Total Bilirubin 0.6 mg/dL (0.3-1.2); Total Protein 5.3 d/dL (6.2-8.2)
--- NOTE | 2022-11-05 12:40 | P.CNNES ---
History of Present Illness Consult date: 11/05/22 Requesting physician: Michael Lopez Reason for Consult: hallucinating History of Present Illness: This is a 77-year-old with likely history of TIA in which she presented with the expressive aphasia in March 2022, known history of left ICA occlusion, coronary artery disease, anemia, peripheral vascular disease, diabetes, suspected primary hepatic malignancy who presented emergency department for generalized weakness for 3 weeks. Some of the history is obtained from medical record and nurse. Neurology is consulted for hallucination. According to the nurse yesterday patient was seeing another person at at bedside was not there as well as seeing other things. Patient stated that was his only first time that this has happened and has not happened before. According to the nurse today he's been doing much better and no further hallucination and he is alert oriented 3. It seems the patient had CT abdomen pelvis in September 2022 and it showed multiple liver mass with abdominal lymphadenopathy and bilateral pulm onary nodule concerning for metastatic malignancy. Patient had a PET scan/CT on 10/29/2022 which revealed compatible suspected primary hepatic malignancy. During this visit he's having severe anemia requiring blood transfusion. Some of additional workup during this consisted of: Hemoglobin as low as 6.3. Vitamin B-12 1059 Methylmalonic acid is 0.32 Folate is 14.3 Most recent glucose is 199. Calcium is 8.7 today's 8.6. AST was present for 5 ALTs 24 The BUN standing up currently is 55. Copper is 1535 and normal is between 6[address] and at thousand 480. CT of the head is reported as no acute intracranial process. Nonspecific white matter changes, likely seizure due to chronic small vessel ischemic disease. I personally reviewed the CT and I agree there is no acute subacute ischemia. Review of Systems Review of systems Limited but the prone positive and negative as per HPI. Past Medical History Past Medical History: Coronary Artery Disease (CAD), Chest Pain / Angina, Diabetes Mellitus, Hyperlipidemia, Hypertension, Vascular Disorder Additional Past Medical History / Comment(s): Hx rectal bleeding, hemorrhoids, diverticulosis., poor circulation -pt states stent left leg., neuropathy of feet., wound on ball of right foot., hospitalization 04/21/22 -04/30/22 for chest pain & anemia-egd and colonoscopy (gastritis & diverticulosis)., & received blood transfusions.,slight blockage carotid arteries.,. *See Cardiology H & P. History of Any Multi-Drug Resistant Organisms: None Reported Past Surgical History: Heart Catheterization, Heart Catheterization With Stent Additional Past Surgical History / Comment(s): *SEE CARDIOLOGY H&P. Hemorrhoidectomy about 40 years ago, colonoscopy, egd, skin cancer., stent left leg, varicose veins removed, heart cath aborted due to low hgb., debridement right foot callus. EGD/colonoscopy last admission negative for any type of bleed per patient Past Anesthesia/Blood Transfusion Reactions: No Reported Reaction Additional Past Anesthesia/Blood Transfusion Reaction / Comment(s): Pt had no reaction to blood transfusions and has had multiple in the past. Date of Last Stent Placement:: UNK Past Psychological History: No Psychological Hx Reported Smoking Status: Former smoker Past Alcohol Use History: Occasional Additional Past Alcohol Use History / Comment(s): Smoked for 50 years, quit 10 years ago per patient. Past Drug Use History: None Reported - Past Family History Father Family Medical History: Cancer Mother Family Medical History: Cancer Medications and Allergies Home Medications Medication Instructions Recorded Confirmed Type Atorvastatin [Lipitor] 40 mg PO HS 08/12/20 11/02/22 History lisinopriL [Zestril] 5 mg PO DAILY 08/12/20 11/02/22 History Multivit-Min/FA/Lycopen/Lutein 1 tab PO DAILY 04/08/22 11/02/22 History [Centrum Silver Men Tablet] Nitroglycerin Sl Tabs [Nitrostat] 0.4 mg SUBLINGUAL Q5M PRN 04/08/22 11/02/22 History Isosorbide Mononitrate ER [Imdur] 30 mg PO DAILY 30 Days #30 tab 04/11/22 Rx Metoprolol Succinate (ER) [Toprol 25 mg PO DAILY 30 Days #30 tab 04/11/22 11/02/22 Rx XL] Ranolazine [Ranexa] 500 mg PO Q12HR 30 Days #60 tab 04/11/22 11/02/22 Rx Aspirin [Adult Low Dose Aspirin EC] 81 mg PO DAILY 05/21/22 11/02/22 History Clopidogrel [Plavix] 75 mg PO DAILY #90 tab 06/01/22 11/02/22 Rx Cholecalciferol [Vitamin D3 (25 25 mcg PO DAILY 11/02/22 11/02/22 History Mcg = 1000 Iu)] Famotidine 40 mg PO BID 11/02/22 11/02/22 History Allergies Allergy/AdvReac Type Severity Reaction Status Date / Time No Known Allergies Allergy Verified 11/02/22 22:48 Physical Examination - Vital Signs Vital Signs: Vital Signs Temp Pulse Pulse Resp BP BP Pulse Ox 11/05/22 12:15 81 12 97/60 11/05/22 12:13 77 12 100/66 97 11/05/22 11:55 97.5 F L 86 15 116/57 99 11/05/22 11:46 98.1 F 88 14 91/58 100 11/05/22 08:12 96 11/05/22 07:50 97.8 F 94 16 101/56 97 11/05/22 02:30 56 L 18 11/05/22 00:58 97.9 F 56 L 18 99/61 96 11/04/22 21:58 97 11/04/22 20:15 85 16 11/04/22 19:31 98.1 F 85 16 107/64 96 11/04/22 15:00 97.5 F L 80 16 93/61 98 Intake and Output 11/04/22 11/05/22 11/05/22 22:59 06:59 14:59 Intake Total 360 Output Total 400 Balance -40 Intake: Oral 360 Blood Product 0 Unit 0 Output: Urine 400 Other: Voiding Method Toilet Toilet Toilet # Voids 1 1 GENERAL: The patient is sitting in a recliner chair and is not in acute distress. He appears lethargic. NEUROLOGICAL: Higher mental function: The patient is slightly drowsy but is awakeable to voice. Is oriented to self, place and time. Patient is following commands. No aphasia and no neglect. Cranial nerves: The pupils are round, equal and reactive to light. Visual villa are full to confrontation throughout. Extraocular movement is intact no nystagmus is noted. Facial sensation is normal to touch throughout. The facial strength is normal throughout. Hearing is mildly to moderately decreased bilaterally to hand rub. Tongue is midline and moved [id number] without any difficulty. No dysarthria is noted. Shoulder shrug is normal bilaterally. Motor: I attempted to walk but was too weak to get him out of chair. The strength is 5 over 5 throughout. Normal tone and bulk. Has moderate to significant edema in lowers Cerebellum: Normal finger to nose bilaterally. Sensation: Sensation is normal to touch throughout. Reflexes (right/left): 1+ throughout. Plantars are mute bilaterally. Results - Laboratory Findings CBC and BMP: 11/05/22 06:19 11/05/22 06:19 Abnormal Lab Findings: Abnormal Labs 11/02/22 11/02/22 11/02/22 21:50 21:50 21:50 WBC 12.3 H RBC 2.66 L Hgb 7.3 L Hct 24.4 L MCHC 29.8 L RDW 21.3 H Plt Count 502 H Neutrophils # 10.7 H Lymphocytes # 0.8 L Sodium 134 L Potassium 5.2 H Carbon Dioxide 21 L Anion Gap BUN 51 H Est GFR (CKD-EPI) BUN/Creatinine Ratio Glucose 201 H Calcium Iron TIBC Transferrin Ferritin AST Alkaline Phosphatase 192 H Total Protein Albumin 2.6 L Globulin Albumin/Globulin Ratio HDL Cholesterol Vitamin B12 Copper Crossmatch See Detail 11/03/22 11/03/22 11/03/22 03:22 03:22 03:22 WBC 12.7 H RBC 2.31 L Hgb 6.3 L* Hct 21.3 L MCHC 29.5 L RDW 21.6 H Plt Count Neutrophils # 10.9 H Lymphocytes # 0.9 L Sodium 133 L Potassium Carbon Dioxide Anion Gap BUN 45 H Est GFR (CKD-EPI) BUN/Creatinine Ratio Glucose 139 H Calcium Iron TIBC Transferrin Ferritin AST Alkaline Phosphatase 171 H Total Protein 5.5 L Albumin 2.2 L Globulin Albumin/Globulin Ratio HDL Cholesterol 23.70 L Vitamin B12 Copper Crossmatch 11/03/22 11/03/22 11/04/22 03:22 15:48 06:36 WBC RBC Hgb Hct MCHC RDW Plt Count Neutrophils # Lymphocytes # Sodium Potassium Carbon Dioxide 19.0 L Anion Gap 13.00 H BUN 42.3 H Est GFR (CKD-EPI) BUN/Creatinine Ratio 38.45 H Glucose 166 H Calcium Iron 30 L TIBC 186 L Transferrin 133.0 L Ferritin 695.0 H AST 46 H Alkaline Phosphatase 173 H Total Protein 5.7 L Albumin 2.2 L Globulin 3.5 H Albumin/Globulin Ratio 0.63 L HDL Cholesterol Vitamin B12 1059.0 H Copper 1535 H Crossmatch 11/04/22 11/05/22 11/05/22 06:47 06:19 06:19 WBC 14.91 H 16.68 H RBC 2.68 L 2.49 L Hgb 7.4 L 6.9 H* Hct 25.1 L 23.8 L MCHC 29.5 L 29.0 L RDW 22.3 H 22.6 H Plt Count Neutrophils # Lymphocytes # Sodium Potassium Carbon Dioxide 18.6 L Anion Gap 13.40 H BUN 55.4 H Est GFR (CKD-EPI) 47 L BUN/Creatinine Ratio 36.93 H Glucose 199 H Calcium 8.6 L Iron TIBC Transferrin Ferritin AST 45 H Alkaline Phosphatase 157 H Total Protein 5.3 L Albumin 2.1 L Globulin Albumin/Globulin Ratio 0.66 L HDL Cholesterol Vitamin B12 Copper Crossmatch Assessment and Plan Assessment: This is a 77-year-old with with liver mass and suspected primary hepatic malignancy presented because of generalized weakness for 3 weeks per ED team. He has significant anemia and requiring transfusion during this hospital stay. He has episode of hallucination on 11/04/22 that has resolved. Delerium: Due to hepatic derangement due to liver mass, significant anemia requiring the transfusion, metabolic derangement and hospital-induced--resolved. On examination he has no focal deficit Liver mass and suspected hepatic malignancy Lower extremity edema and generalized weakness due to liver mass Anemia requiring transfusion Elevated copper likely due to liver mass History of likely TIA (expresive aphasia) in 03/2022 History of left ICA occlusion History of coronary artery disease Peripheral vascular disease Diabetes Plan: I ordered TSH, ammonia level to rule out any other factor contributing to encephalopathy Ordered routine EEG to rule out any underlying seizure discharges which I feel is unlikely Ordered MRI of the brain to rule out any brain metastases. We'll defer the rest of the medical management to the primary and other specialists The plan was discussed with the patient and his nurse. Thank you for the consultation Time with Patient: Less than 30
--- NOTE | 2022-11-05 15:25 | P.PN ---
Subjective Progress Note Date: 11/05/22 Principal diagnosis: weakness, anemia At today's visit patient is resting comfortably in bed. Patient reports feeling increased shortness of breath and weakness. He also reports fatigue and feels like he isn't getting good rest. Hemoglobin today 6.9. Additional unit of PRBCs ordered. Objective - Vital Signs Vital signs: Vital Signs Temp 97.7 F 11/05/22 14:14 Pulse 85 11/05/22 14:14 Resp 15 11/05/22 14:14 BP 98/62 11/05/22 14:14 Pulse Ox 97 11/05/22 12:13 FiO2 21 11/04/22 09:19 Intake & Output 11/04/22 11/05/22 11/05/22 18:59 06:59 18:59 Intake Total 218 636 Output Total 400 Balance 218 236 Weight 74.843 kg Intake: Intake, IV Titration 100 Amount Sodium Ferric Gluconat- 100 Sucrose 125 mg In Sodium Chloride 0.9% 100 ml @ 100 mls/hr IVPB DAILY [facility] Rx#:[id number] Oral 118 360 Blood Product 276 Rc Pheresis As-3 Unit 276 [id number] Output: Urine 400 Other: Voiding Method Toilet Toilet # Voids 1 - Constitutional General appearance: Present: average body habitus, no acute distress - EENT Eyes: Present: anicteric sclerae, EOMI ENT: Present: hearing grossly normal - Respiratory Details: breathing is even and unlabored - Cardiovascular Details: skin warm and dry - Integumentary Integumentary: Present: pale - Neurologic Neurologic Comment(s): grossly intact - Musculoskeletal Musculoskeletal: Present: generalized weakness - Psychiatric Psychiatric: Present: A&O x's 3, appropriate affect, intact judgment & insight - Labs CBC & Chem 7: 11/05/22 06:19 11/05/22 06:19 Labs: Abnormal Lab Results - Last 24 Hours (Table) 11/02/22 11/05/22 11/05/22 Range/Units 21:50 06:19 06:19 WBC 16.68 H (4.50-10.00) X 10*3/uL RBC 2.49 L (4.40-5.60) X 10*6/uL Hgb 6.9 H* (12.0-15.0) d/dL Hct 23.8 L (39.6-50.0) % MCHC 29.0 L (32.0-37.0) d/dL RDW 22.6 H (11.5-14.5) % Carbon Dioxide 18.6 L (21.6-31.8) mmol/L Anion Gap 13.40 H (4.00-12.00) mmol/L BUN 55.4 H (9.0-27.0) mg/dL Est GFR (CKD-EPI) 47 L (>=60) BUN/Creatinine Ratio 36.93 H (12.00-20.00) Ratio Glucose 199 H (70-110) mg/dL Calcium 8.6 L (8.7-10.3) mg/dL AST 45 H (14-35) U/L Alkaline Phosphatase 157 H (41-126) U/L Total Protein 5.3 L (6.2-8.2) d/dL Albumin 2.1 L (3.8-4.9) d/dL Albumin/Globulin Ratio 0.66 L (1.60-3.17) Ratio Crossmatch See Detail Assessment and Plan (1) Liver mass Current Visit: Yes Status: Acute Priority: High Code(s): R16.0 - HEPATOMEGALY, NOT ELSEWHERE CLASSIFIED SNOMED Code(s): 156141492 (2) Anemia Current Visit: Yes Status: Acute Priority: High Code(s): D64.9 - ANEMIA, UNSPECIFIED SNOMED Code(s): 825590344 Plan: Liver mass: -Patient had CT abdomen/pelvis on 10/05/2022 which noted multiple liver masses with largest in segment 5 and extending to segment 8 measuring 10.6 cm in largest dimension along with intra-abdominal lymphadenopathy, nodular thickening of the left adrenal gland, and bilateral pulmonary nodules concerning for metastatic malignancy. PET/CT on 10/29/22 revealed findings compatible with suspected primary hepatic malignancy such as HCC with metastatic disease to the intra-abdominal, intrathoracic and lower neck lymph nodes. Additionally there is a left adrenal gland nodule as well as innumerable pulmonary nodules. -CT guided biopsy of the liver mass was scheduled for 11/15/22. -Tumor markers showed, CEA 4.7, AFP <1.8, CA 19-9 elevated at 221. -US neck obtained to evaluate right cervical LN. Ultrasound neck revealed promin ent soft tissue masses within the right neck. A cluster of lymph nodes visualized in the right neck adjacent to the IJV. Largest measuring at 2.1 x 1.8 x 1.3 cm. The lymph node appears enlarged and heterogeneous. No enlarged lymph nodes visualized on the left side. IR consult placed for biopsy of right cervical LN. Spoke with IR nurse, biopsy will have to be held for 5 days due to plavix administration on 11/02. Outpatient LN biopsy scheduled for 11/15. -F/u scheduled with Dr. Donald Edouard upon discharge Anemia: -Severe anemia noted during hospitalization 03/2022 while undergoing balloon angioplasty of known RCA lesion and again during admission in 04/2022, both requiring transfusions. EGD/colonoscopy on 04/29/2022 revealed no evidence of GI blood loss in the upper or lower GI tract. There was a noted large amount of liquid stool in the right colon, which could limit assessment. Stomach and antrum biopsies revealed mild chronic gastritis, which was negative for H. pylori. Lab work-up for his anemia on 04/30/2022 noted ferritin 57, iron saturation 27.6%, vitamin B12 283, methylmalonic acid 1.4, RBC folate 977, reticulocyte count 3.4%, copper 1249. His normocytic anemia was thought to be likely multifactorial due to inflammation from acute infection along with possible vitamin B12 deficiency. Repeat anemia work-up was consistent with iron deficiency along with concurrent vitamin B12 deficiency. His vitamin B12 deficiency could have been due to previous use of metformin. It was unclear if his iron deficiency was due to decreased oral intake given his diet and weight loss of 65 pounds. However, after findings of CT and PET, anemia is likely multifactorial r/t GI malignancy superimposed by poor intake/weight loss. Patient received 2 infusions of Feraheme on 06/03/2022 and 07/08/2022 along with 4 weekly injections of vitamin B12 at 1000 mcg followed by monthly vitamin B12 injections. Intrinsic factor and gastric parietal cell antibodies were negative. He received additional 2 doses of Feraheme on 09/27/2022 and 10/05/2022. Iron studies on 10/22/22 showed, iron 26, iron saturation 14%, ferritin 997 -S/p 1 unit PRBC, with appropriate response in hemoglobin. Today hemoglobin 6.9, additional unit PRBCs ordered -Anemia workup ordered. Iron 30, iron saturation 16%, ferritin 695. Ferritin likely elevated due to inflammation. Parenteral iron ordered x 3 doses for additional hemoglobin support. No vitamin B12 or folate deficiency noted. MMA and copper normal -Will continue to monitor counts. Please transfuse for hemoglobin less than 8, as chest pain is thought to be related to symptomatic anemia
--- NOTE | 2022-11-05 18:21 | EEG ---
ELECTROENCEPHALOGRAM REPORT CLINICAL HISTORY: This is a 77-year-old gentleman with altered mental status. The video EEG is obtained to evaluate for seizure and epileptiform activity. RELEVANT MEDICATIONS: The patient is not on any antiepileptic drugs. EEG TYPE: A routine 21-channel EEG is performed with video using the 10/20 electrode placement system. DESCRIPTION: The background consists of [id number] voltage of 8 to 9 Hz activity that appears well modulated and well sustained. At times, the background consists of diffuse theta/delta activity. There is no physiological stage II sleep architecture. There is no focal slowing. INTERICTAL AND ICTAL: None. ACTIVATION PROCEDURE: Photic stimulation did not evoke a posterior driving response. There was no abnormality during the photic stimulation. Hyperventilation was not performed. CLINICAL INTERPRETATION: This is an abnormal routine EEG. The background slowing is suggestive of mild encephalopathy, possibly due to toxic-metabolic derangements. Otherwise, there is no focal slowing, epileptiform discharge, or seizure on the EEG. Clinical correlation is recommended. MMODL / IJN: [id number] / [facility]
[2022-11-05] MEDS: ATORVASTATIN 40 MG TAB PO SCH (20:19)
[2022-11-06] MEDS: ISOSORBIDE MONONITRATE ER 30 MG TAB.ER.24H PO SCH (09:01)
[2022-11-06] MEDS: RANOLAZINE 500 MG TAB.ER.12H PO SCH ×2 (09:01→21:35)
[2022-11-06] MEDS: FAMOTIDINE 20 MG TAB PO SCH ×2 (09:01→21:35)
[2022-11-06] MEDS: METOPROLOL SUCCINATE (ER) 25 MG TAB.ER.24H PO SCH (09:01)
[2022-11-06] MEDS: lisinopriL 5 MG TAB PO SCH (09:01)
[2022-11-06] MEDS: ASPIRIN 81 MG PO SCH (09:01)
[2022-11-06] MEDS: SODIUM FERRIC GLUCONAT-SUCROSE 125 MG in SODIUM CHLORIDE 0.9% 100 ML IVPB SCH (09:05)
[2022-11-06 09:21] LABS: HCT 27.6 % (39.6-50.0); HGB 8.4 d/dL (12.0-15.0); MCH 28.8 pg (27.0-32.0); MCHC 30.4 d/dL (32.0-37.0); MCV 94.5 FL (80.0-97.0); Mean Platelet Volume 10.1 FL (9.5-12.2); NRBC Per 100 WBC 0 X 10*3/uL (0.00-0.01); Platelet Count 382 X 10*3/uL (140-440); RBC 2.92 X 10*6/uL (4.40-5.60); RDW 21.9 % (11.5-14.5); WBC 16.15 X 10*3/uL (4.50-10.00)
[2022-11-06 09:25] LABS: ALT 25 U/L (10-49); AST 56 U/L (14-35); Albumin 2.1 d/dL (3.8-4.9); Alkaline Phosphatase 172 U/L (41-126); BUN/Creat Ratio 45.92 Ratio (12.00-20.00); Blood Urea Nitrogen 59.7 mg/dL (9.0-27.0); Calcium 8.8 mg/dL (8.7-10.3); Carbon Dioxide 20.8 mmol/L (21.6-31.8); Chloride 104 mmol/L (96-109); Globulin 3.5 d/dL (1.6-3.3); Glucose 180 mg/dL (70-110); Potassium 5.1 mmol/L (3.5-5.5); Sodium 137 mmol/L (135-145); Total Bilirubin 0.8 mg/dL (0.3-1.2); Total Protein 5.6 d/dL (6.2-8.2)
--- NOTE | 2022-11-06 14:24 | P.PN ---
Subjective Progress Note Date: 11/06/22 Liver mass with anemia This 77-year-old white male admitted for symptomatically anemia with chest pain and liver mass. 11/06. Patient seen and examined. Hemoglobin this morning is 8.4, sodium is 137, potassium 5.1, BUN is 59, 31.3. Patient states he feels much stronger compared to yesterday REVIEW OF SYSTEMS: CONSTITUTIONAL: No fever, no malaise,. CARDIOVASCULAR: No chest pain, no palpitations, no syncope. PULMONARY: No shortness of breath, no cough, GASTROINTESTINAL: No diarrhea, no nausea, no vomiting, no abdominal pain. NEUROLOGICAL: No headaches, no weakness, PHYSICAL EXAMINATION: GENERAL: The patient is alert and oriented x3, not in any acute distress. Well developed, well nourished. HEENT: Pupils are round and equally reacting to light. EOMI. No scleral icterus. No conjunctival pallor. Normocephalic, atraumatic. No pharyngeal erythema. No thyromegaly. CARDIOVASCULAR: S1 and S2 present. No murmurs, rubs, or gallops. PULMONARY: Chest is clear to auscultation, no wheezing or crackles. ABDOMEN: Soft, nontender, nondistended, normoactive bowel sounds. No palpable organomegaly. MUSCULOSKELETAL: No joint swelling or deformity. EXTREMITIES: No cyanosis, clubbing, or pedal edema. NEUROLOGICAL: Gross neurological examination did not reveal any focal deficits. SKIN: No rashes. Assessment and plan Liver mass Acute metabolic encephalopathy Anemia Angina at rest Coronary artery disease Diabetes mellitus Monitor vital signs Monitor CBC Monitor CMP EEG showed background slowing suggestive of mild encephalopathy MRI brain ordered Neurology following Hematology oncology following Cardiology following Labs and medication were reviewed.. Continue same treatment. Continue with symptomatic treatment. Resume home medication. Monitor labs and vitals. DVT and GI prophylaxis. Further recommendations as per clinical course of the patient Dictation was produced using [employer] dictation software. please excuse any grammatical, word or spelling errors. Objective - Vital Signs Vital signs: Vital Signs Temp 97.4 F L 11/06/22 07:25 Pulse 87 11/06/22 08:00 Resp 16 11/06/22 08:00 BP 95/58 11/06/22 07:25 Pulse Ox 99 11/06/22 08:35 FiO2 21 11/06/22 08:35 Intake & Output 11/05/22 11/06/22 11/06/22 18:59 06:59 18:59 Intake Total 754 118 Output Total 400 1 Balance 354 -1 118 Weight 74.843 kg Intake: Oral 478 118 Blood Product 276 Rc Pheresis As-3 Unit 276 [id number] Output: Urine 400 Stool 1 Other: Voiding Method Toilet Toilet Toilet # Voids 2 1 1 - Labs CBC & Chem 7: 11/06/22 06:28 11/06/22 06:28 Labs: Abnormal Lab Results - Last 24 Hours (Table) 11/02/22 11/05/22 11/05/22 Range/Units 21:50 06:19 06:19 WBC 16.68 H (4.50-10.00) X 10*3/uL RBC 2.49 L (4.40-5.60) X 10*6/uL Hgb 6.9 H* (12.0-15.0) d/dL Hct 23.8 L (39.6-50.0) % MCHC 29.0 L (32.0-37.0) d/dL RDW 22.6 H (11.5-14.5) % Carbon Dioxide 18.6 L (21.6-31.8) mmol/L Anion Gap 13.40 H (4.00-12.00) mmol/L BUN 55.4 H (9.0-27.0) mg/dL Est GFR (CKD-EPI) 47 L (>=60) BUN/Creatinine Ratio 36.93 H (12.00-20.00) Ratio Glucose 199 H (70-110) mg/dL Calcium 8.6 L (8.7-10.3) mg/dL AST 45 H (14-35) U/L Alkaline Phosphatase 157 H (41-126) U/L Total Protein 5.3 L (6.2-8.2) d/dL Albumin 2.1 L (3.8-4.9) d/dL Globulin (1.6-3.3) d/dL Albumin/Globulin Ratio 0.66 L (1.60-3.17) Ratio Crossmatch See Detail 11/06/22 11/06/22 Range/Units 06:28 06:28 WBC 16.15 H (4.50-10.00) X 10*3/uL RBC 2.92 L (4.40-5.60) X 10*6/uL Hgb 8.4 L (12.0-15.0) d/dL Hct 27.6 L (39.6-50.0) % MCHC 30.4 L (32.0-37.0) d/dL RDW 21.9 H (11.5-14.5) % Carbon Dioxide 20.8 L (21.6-31.8) mmol/L Anion Gap 12.20 H (4.00-12.00) mmol/L BUN 59.7 H (9.0-27.0) mg/dL Est GFR (CKD-EPI) 56 L (>=60) BUN/Creatinine Ratio 45.92 H (12.00-20.00) Ratio Glucose 180 H (70-110) mg/dL Calcium (8.7-10.3) mg/dL AST 56 H (14-35) U/L Alkaline Phosphatase 172 H (41-126) U/L Total Protein 5.6 L (6.2-8.2) d/dL Albumin 2.1 L (3.8-4.9) d/dL Globulin 3.5 H (1.6-3.3) d/dL Albumin/Globulin Ratio 0.60 L (1.60-3.17) Ratio Crossmatch
--- NOTE | 2022-11-06 15:23 | MR ---
EXAMINATION TYPE: MR brain wo/w con DATE OF EXAM: 11/06/2022 2:57 PM CLINICAL INDICATION:Male, 77 years old with history of altered mental status.r/o brain mets. hx of ca ncer; AMS, r/o brain mets, hx of cancer COMPARISON: CT brain 11/04/2022 TECHNIQUE: Multi planar, multi sequence imaging was performed through the brain including: T1, T2, In version recovery, susceptibility weighted imaging and gradient echo imaging and Diffusion weighted im aging. The patient was then given intravenous contrast and multi planar, T1 fat-saturation images wer e obtained. IV Contrast: 7.5 cc Gadavist FINDINGS: Ventricular dilation proportion to cerebral atrophy. The matamoros-white junctions, ventricular system, basal cisterns appear unremarkable. Diffusion-weighted imaging shows no evidence of restricted diffusion to suggest acute/subacute infarct. Intracranial art erial flow voids are maintained. Midline structures show no abnormality. The susceptibility weighted images reveal microhemorrhage in the left posterior frontal lobe.. After administration of gadolinium , no abnormal enhancement is seen. The bone marrow signal is within normal limits. Paranasal sinuses and mastoid air cells: No significant paranasal sinus disease. Visualized orbits: Bilaterally aphakia. IMPRESSION: No evidence of intracranial mass, acute/subacute infarct, or abnormal enhancement. No evidence for me tastatic disease.
[2022-11-06] MEDS: ATORVASTATIN 40 MG TAB PO SCH (21:34)
[2022-11-07] MEDS: ISOSORBIDE MONONITRATE ER 30 MG TAB.ER.24H PO SCH (09:33)
[2022-11-07] MEDS: RANOLAZINE 500 MG TAB.ER.12H PO SCH ×2 (09:34→20:19)
[2022-11-07] MEDS: ASPIRIN 81 MG PO SCH (09:34)
[2022-11-07] MEDS: METOPROLOL SUCCINATE (ER) 25 MG TAB.ER.24H PO SCH (09:34)
[2022-11-07] MEDS: FAMOTIDINE 20 MG TAB PO SCH ×2 (09:34→20:19)
--- NOTE | 2022-11-07 13:57 | P.PN ---
Subjective Progress Note Date: 11/07/22 The patient was seen as a follow-up and he was sitting up the on bed eating and he states that he is feeling better. Denies of any new neurological issues. Objective - Vital Signs Vital signs: Vital Signs Temp 97.8 F 11/07/22 07:50 Pulse 89 11/07/22 13:47 Resp 16 11/07/22 13:47 BP 96/64 11/07/22 07:50 Pulse Ox 96 11/07/22 08:49 FiO2 21 11/06/22 08:35 Intake & Output 11/06/22 11/07/22 11/07/22 18:59 06:59 18:59 Intake Total 236 118 Output Total 1 Balance 236 117 Intake: Oral 236 118 Output: Stool 1 Other: Voiding Method Toilet Toilet Toilet # Voids 1 1 3 # Bowel Movements 1 - Exam GENERAL: The patient is sitting up eating and is not in acute distress. NEUROLOGICAL: Higher mental function: The patient is awake, alert, oriented to self, place and time. Patient is following commands. No aphasia and no neglect. Cranial nerves: The pupils are round, equal and reactive to light. Visual f ields are full to confrontation throughout. Extraocular movement is intact no nystagmus is noted. Facial sensation is normal to touch throughout. The facial strength is normal throughout. Hearing is mildly to moderately decreased bilaterally to hand rub. Tongue is midline and moved [id number] without any difficulty. No dysarthria is noted. Shoulder shrug is normal bilaterally. Motor: I attempted to walk but was too weak to get him out of chair. The strength is 5 over 5 throughout. Normal tone and bulk. Has moderate to significant edema in lowers Cerebellum: Normal finger to nose bilaterally. Sensation: Sensation is normal to touch throughout. Reflexes (right/left): 1+ throughout. Plantars are mute bilaterally. Some of additional workup during this consisted of: Hemoglobin as low as 6.3. Vitamin B-12 1059 Methylmalonic acid is 0.32 Folate is 14.3 Ammonia level is less than 9. TSH is 5.490 Most recent glucose is 199. Calcium is 8.7 today's 8.6. AST was present for 5 ALTs 24 The BUN standing up currently is 55. Copper is 1535 and normal is between 665 and at thousand 480. CT of the head is reported as no acute intracranial process. Nonspecific white matter changes, likely seizure due to chronic small vessel ischemic disease. I personally reviewed the CT and I agree there is no acute subacute ischemia. Routine EEG is abnormal. The background slowing is suggestive of mild encephalopathy, possibly due to toxic metabolic derangement. Otherwise there is no focal slowing, epileptiform discharges or seizure on the EEG. MRI of the brain is reported as no evidence of intracranial mass, acute/subacute infarct or abnormal enhancement. No evidence for metastatic disease. - Labs CBC & Chem 7: 11/06/22 06:28 11/06/22 06:28 Assessment and Plan Assessment: This is a 77-year-old with with liver mass and suspected primary hepatic malignancy presented because of generalized weakness for 3 weeks per ED team. He has significant anemia and requiring transfusion during this hospital stay. He has episode of hallucination on 11/04/22 that has resolved. Delerium: Due to hepatic derangement due to liver mass, significant anemia requiring the transfusion, metabolic derangement and hospital-induced--resolved. On examination he has no focal deficit and mentation improved. Liver mass and suspected hepatic malignancy Lower extremity edema and generalized weakness due to liver mass Anemia requiring transfusion Elevated copper likely due to liver mass History of likely TIA (expresive aphasia) in 03/2022 History of left ICA occlusion History of coronary artery disease Peripheral vascular disease Diabetes Plan: MRI was negative for acute or subacute stroke or any brain metastases. Routine EEG was negative for any seizure discharges shows mild encephalopathy. We'll defer the rest of the medical management to the primary and other specia lists There is no further neurological workup. We'll sign off. Please reconsult if needed Dr. Centeno will start neurology service tomorrow A.M. Time with Patient: Less than 30
--- NOTE | 2022-11-07 15:37 | P.PN ---
Subjective Progress Note Date: 11/07/22 Liver mass with anemia This 77-year-old white male admitted for symptomatically anemia with chest pain and liver mass. 11/06. Patient seen and examined. Hemoglobin this morning is 8.4, sodium is 137, potassium 5.1, BUN is 59, 31.3. Patient states he feels much stronger compared to yesterday 11/07. Patient seen and examined. Complaining of loss of appetite this morning. Sitting upright in the chair. No complaint of shortness of breath. Last hemoglobin was 8.4 REVIEW OF SYSTEMS: CONSTITUTIONAL: No fever, no malaise,. CARDIOVASCULAR: No chest pain, no palpitations, no syncope. PULMONARY: No shortness of breath, no cough, GASTROINTESTINAL: No diarrhea, no nausea, no vomiting, no abdominal pain. NEUROLOGICAL: No headaches, no weakness, PHYSICAL EXAMINATION: GENERAL: The patient is alert and oriented x3, not in any acute distress. Well developed, well nourished. HEENT: Pupils are round and equally reacting to light. EOMI. No scleral icterus. No conjunctival pallor. Normocephalic, atraumatic. No pharyngeal erythema. No thyromegaly. CARDIOVASCULAR: S1 and S2 present. No murmurs, rubs, or gallops. PULMONARY: Chest is clear to auscultation, no wheezing or crackles. ABDOMEN: Soft, nontender, nondistended, normoactive bowel sounds. No palpable organomegaly. MUSCULOSKELETAL: No joint swelling or deformity. EXTREMITIES: No cyanosis, clubbing, or pedal edema. NEUROLOGICAL: Gross neurological examination did not reveal any focal deficits. SKIN: No rashes. Assessment and plan Liver mass Acute metabolic encephalopathy Anemia Angina at rest Coronary artery disease Diabetes mellitus Monitor vital signs Monitor CBC Monitor CMP Continue aspirin, Lipitor Continue Toprol Continue imdur EEG showed background slowing suggestive of mild encephalopathy MRI brain negative for any acute intracranial process Neurology following, they signed off Hematology oncology following Cardiology following Labs and medication were reviewed.. Continue same treatment. Continue with symptomatic treatment. Resume home medication. Monitor labs and vitals. DVT and GI prophylaxis. Further recommendations as per clinical course of the patient Dictation was produced using [employer] dictation software. please excuse any grammatical, word or spelling errors. Objective - Vital Signs Vital signs: Vital Signs Temp 97.8 F 11/07/22 07:50 Pulse 89 11/07/22 13:47 Resp 16 11/07/22 13:47 BP 96/64 11/07/22 07:50 Pulse Ox 96 11/07/22 08:49 FiO2 21 11/06/22 08:35 Intake & Output 11/06/22 11/07/22 11/07/22 18:59 06:59 18:59 Intake Total 236 355 Output Total 1 Balance 236 354 Intake: Oral 236 355 Output: Stool 1 Other: Voiding Method Toilet Toilet Toilet # Voids 1 1 3 # Bowel Movements 1 - Labs CBC & Chem 7: 11/06/22 06:28 11/06/22 06:28
[2022-11-07] MEDS: ATORVASTATIN 40 MG TAB PO SCH (20:19)
[2022-11-08 03:46] LABS: Anisocytosis Moderate; Basophils % (A) 0 %; Eosinophils # (A) 0.1 k/uL (0-0.7); Eosinophils % (A) 1 %; HCT 28.3 % (39.0-53.0); Hypochromasia Marked; Lymphocytes # (A) 0.6 k/uL (1.0-4.8); Lymphocytes % (A) 4 %; MCHC 30.7 g/dL (31.0-37.0); Macrocytosis Moderate; Monocytes # (A) 0.7 k/uL (0-1.0); Monocytes % (A) 4 %; Neutrophils # (A) 14.5 k/uL (1.3-7.7); Neutrophils % (A) 90 %; Platelet Count 377 k/uL (150-450); RDW 21.1 % (11.5-15.5); WBC 16.2 k/uL (3.8-10.6)
[2022-11-08 03:48] LABS: HGB 8.7 gm/dL (13.0-17.5)
[2022-11-08 03:49] LABS: MCV 97.6 fL (80.0-100.0)
[2022-11-08] MEDS: ASPIRIN 81 MG PO SCH (09:43)
[2022-11-08] MEDS: METOPROLOL SUCCINATE (ER) 25 MG TAB.ER.24H PO SCH (09:43)
[2022-11-08] MEDS: RANOLAZINE 500 MG TAB.ER.12H PO SCH ×2 (09:43→21:50)
[2022-11-08] MEDS: ISOSORBIDE MONONITRATE ER 30 MG TAB.ER.24H PO SCH (09:43)
[2022-11-08] MEDS: FAMOTIDINE 20 MG TAB PO SCH ×2 (09:43→21:50)
[2022-11-08 09:47] LABS: ALT 35 U/L (10-49); AST 58 U/L (14-35); Albumin 2.2 d/dL (3.8-4.9); Albumin/Globulin Ratio 0.65 Ratio (1.60-3.17); Alkaline Phosphatase 184 U/L (41-126); BUN/Creat Ratio 36.71 Ratio (12.00-20.00); Blood Urea Nitrogen 77.1 mg/dL (9.0-27.0); Calcium 8.9 mg/dL (8.7-10.3); Carbon Dioxide 17.5 mmol/L (21.6-31.8); Chloride 101 mmol/L (96-109); Globulin 3.4 d/dL (1.6-3.3); Glucose 198 mg/dL (70-110); Potassium 5.5 mmol/L (3.5-5.5); Sodium 136 mmol/L (135-145); Total Bilirubin 0.6 mg/dL (0.3-1.2); Total Protein 5.6 d/dL (6.2-8.2)
--- NOTE | 2022-11-08 11:32 | US ---
EXAMINATION TYPE: US kidneys/renal and bladder DATE OF EXAM: 11/08/2022 COMPARISON: CT 10/13/2022 CLINICAL INDICATION: Male, 77 years old with history of RAOUL; Abnormal labs. Hx liver lesion. Patient scanned in chair. Portable inpatient exam EXAM MEASUREMENTS: Right Kidney: 9.2 x 4.9 x 4.5 cm Left Kidney: 10.5 x 5.0 x 5.6 cm Right Kidney: No hydronephrosis or masses seen Left Kidney: No prominent hydronephrosis or masses seen, limited due to patient position and bowel ga s Bladder: distended, anechoic Bilateral Jets not seen Incidental finding: Ascites visualized in RUQ and LUQ Increased renal echotexture to the kidneys. IMPRESSION: 1. Slightly limited exam, No evidence for acute process. 2. Small ascites. 3. Increased renal echotexture correlate for medical renal disease.
[2022-11-08] MEDS ORDERED: TAMSULOSIN 0.4 MG CAP.ER.24H PO STA (15:10)
--- NOTE | 2022-11-08 15:17 | P.PN ---
Subjective Progress Note Date: 11/08/22 This is a pleasant 77 year old male admitted for symptomatic anemia, hemoglobin is stable today at 8.7 patient has received total 2 units of PRBC. Patient complaining of constipation today and abdomen is distended, he was able to have a bowel movement. Creatinine has increased to 2.1 from 1.3 today and at beside concerned with his mentation. Patient noted to have urinary retention with bladder scan showing 645 mLs. Renal ultrasound showing small ascites no evidence of bladder distention or hydronephrosis. Neurology has signed off. Patient is scheduled for outpatient cervical lymph node and liver biopsy. Review of Systems Constitutional: Denied any fatigue denied any fever. Cardio vascular: denied any chest pain, palpitations Gastrointestinal: denied any nausea, vomiting, diarrhea Pulmonary: Denied any shortness of breath cough Neurologic denied any new focal deficits All inpatient medications were reviewed and appropriate changes in these medications as dictated in the interval history and assessment and plan. PHYSICAL EXAMINATION: GENERAL: The patient is alert and oriented x2, not in any acute distress. Well developed, well nourished. HEENT: Pupils are round and equally reacting to light. EOMI. No scleral icterus. No conjunctival pallor. Normocephalic, atraumatic. No pharyngeal erythema. No thyromegaly. CARDIOVASCULAR: S1 and S2 present. No murmurs, rubs, or gallops. PULMONARY: Chest is clear to auscultation, no wheezing or crackles. Chest is diminished ABDOMEN: Soft, nontender, distended, normoactive bowel sounds. No palpable organomegaly. MUSCULOSKELETAL: No joint swelling or deformity. EXTREMITIES: No cyanosis, clubbing, or pedal edema. NEUROLOGICAL: Gross neurological examination did not reveal any focal deficits. Diffuse generalized weakness. SKIN: No rashes. Assessment Liver mass with likely metastasis to the lung, retroperitoneal lymph nodes, and left adrenal gland Acute hypoxic respiratory failure Acute metabolic encephalopathy secondary to RAOUL Anemia macrocytic, symptomatic with hemoglobin 8.7 s/p 2 units PRBC Angina at rest Coronary artery disease Diabetes mellitus Plan Avoid constipation Flomax added and follow urinary catheterization protocol Follow up BMP in the AM PT/OT consultation Chest xray ordered Patient to undergo outpatient liver and lymph node biopsy AM labs The impression and plan of care has been dictated by Laura Patel, Nurse Practitioner as directed. Dr. Kierra MD I have performed a history and physical examination and medical decision making of this patient, discussed the same with the dictator, and agree with the dictators assessment and plan as written, documented as a scribe. Based on total visit time, I have performed more than 50% of this visit. Objective - Vital Signs Vital signs: Vital Signs Temp 97.4 F L 11/08/22 14:50 Pulse 82 11/08/22 14:50 Resp 17 11/08/22 14:50 BP 99/67 11/08/22 14:50 Pulse Ox 100 11/08/22 14:50 FiO2 21 11/06/22 08:35 Intake & Output 11/07/22 11/08/22 11/08/22 18:59 06:59 18:59 Intake Total 595 236 Output Total 1 Balance 594 236 Intake: Oral 595 236 Output: Stool 1 Other: Voiding Method Toilet Toilet # Voids 3 3 1 # Bowel Movements 1 2 - Labs CBC & Chem 7: 11/08/22 03:23 11/08/22 03:23 Labs: Abnormal Lab Results - Last 24 Hours (Table) 11/08/22 11/08/22 Range/Units 03:23 03:23 WBC 16.2 H (3.8-10.6) k/uL RBC 2.90 L (4.30-5.90) m/uL Hgb 8.7 L D (13.0-17.5) gm/dL Hct 28.3 L (39.0-53.0) % MCHC 30.7 L (31.0-37.0) g/dL RDW 21.1 H (11.5-15.5) % Neutrophils # 14.5 H (1.3-7.7) k/uL Lymphocytes # 0.6 L (1.0-4.8) k/uL Carbon Dioxide 17.5 L (21.6-31.8) mmol/L Anion Gap 17.50 H (4.00-12.00) mmol/L BUN 77.1 H (9.0-27.0) mg/dL Creatinine 2.1 H (0.6-1.5) mg/dL Est GFR (CKD-EPI) 31 L (>=60) BUN/Creatinine Ratio 36.71 H (12.00-20.00) Ratio Glucose 198 H (70-110) mg/dL AST 58 H (14-35) U/L Alkaline Phosphatase 184 H (41-126) U/L Total Protein 5.6 L (6.2-8.2) d/dL Albumin 2.2 L (3.8-4.9) d/dL Globulin 3.4 H (1.6-3.3) d/dL Albumin/Globulin Ratio 0.65 L (1.60-3.17) Ratio Assessment and Plan Time with Patient: Less than 30
[2022-11-08] MEDS ORDERED: DEXTROSE 50% SYRINGE 50 ML IVP PRN ×2 (15:18)
[2022-11-08 15:54] LABS: Appearance,Urine Clear (Clear); Bilirubin,Urine Negative (Negative); Blood,Urine Negative (Negative); Color,Urine Dark Brown; Glucose,Urine (UA) Negative (Negative); Ketones,Urine Negative (Negative); Leukocyte Esterase,Urine Negative (Negative); Nitrite,Urine Negative (Negative); Protein,Urine Trace (Negative); Specific Gravity,Urine 1.022 (1.001-1.035)
--- NOTE | 2022-11-08 17:40 | XR ---
EXAMINATION TYPE: XR chest 2V DATE OF EXAM: 11/08/2022 5:30 PM COMPARISON: Chest radiographs from 04/21/2022 TECHNIQUE: XR chest 2V Frontal and lateral views of the chest. CLINICAL INDICATION:Male, 77 years old with history of hypoxia; FINDINGS: Lungs/Pleura: Low lung volumes are present. There is no evidence of pleural effusion, focal consolida tion, or pneumothorax. Pulmonary vascularity: Unremarkable. Heart/mediastinum: Cardiomediastinal silhouette is unremarkable. Musculoskeletal: No acute osseous pathology. IMPRESSION: Low lung volumes with a generalized hazy appearance which could represent atelectasis versus pulmonar y edema, correlate with serum BNP.
[2022-11-08 17:52] LABS: Glucose,Whole Blood 278 mg/dL (70-110)
--- NOTE | 2022-11-08 17:56 | P.PN ---
Subjective Progress Note Date: 11/08/22 Principal diagnosis: Generalized weakness, liver masses, lymphadenopathy In follow-up today patient denies any acute complaints, he is tolerating some oral intake, no recent vomiting, shortness of breath, abdominal pain. Objective - Vital Signs Vital signs: Vital Signs Temp 97.4 F L 11/08/22 14:50 Pulse 82 11/08/22 14:50 Resp 17 11/08/22 14:50 BP 99/67 11/08/22 14:50 Pulse Ox 100 11/08/22 14:50 FiO2 21 11/06/22 08:35 Intake & Output 11/07/22 11/08/22 11/08/22 18:59 06:59 18:59 Intake Total 595 236 Output Total 1 450 Balance 594 -214 Intake: Oral 595 236 Output: Urine 450 Straight 450 Stool 1 Other: Voiding Method Toilet Toilet # Voids 3 3 1 # Bowel Movements 1 2 - Constitutional General appearance: Present: average body habitus, cooperative, no acute distre ss - EENT Eyes: Present: anicteric sclerae, EOMI ENT: Present: hearing grossly normal - Respiratory Respiratory: bilateral: CTA - Cardiovascular Rhythm: regular Heart sounds: normal: S1, S2 Abnormal Heart Sounds: Absent: systolic murmur, diastolic murmur, rub, S3 Gallop, S4 Gallop, click, other - Peripheral edema leg Peripheral Edema: bilateral: None - Gastrointestinal General gastrointestinal: Present: normal bowel sounds, soft - Neurologic Neurologic: Present: CNII-XII intact - Musculoskeletal Musculoskeletal: Present: generalized weakness, strength equal bilaterally - Psychiatric Psychiatric: Present: A&O x's 3, appropriate affect - Labs CBC & Chem 7: 11/08/22 03:23 11/08/22 03:23 Labs: Abnormal Lab Results - Last 24 Hours (Table) 11/08/22 11/08/22 11/08/22 Range/Units 03:23 03:23 15:35 WBC 16.2 H (3.8-10.6) k/uL RBC 2.90 L (4.30-5.90) m/uL Hgb 8.7 L D (13.0-17.5) gm/dL Hct 28.3 L (39.0-53.0) % MCHC 30.7 L (31.0-37.0) g/dL RDW 21.1 H (11.5-15.5) % Neutrophils # 14.5 H (1.3-7.7) k/uL Lymphocytes # 0.6 L (1.0-4.8) k/uL Carbon Dioxide 17.5 L (21.6-31.8) mmol/L Anion Gap 17.50 H (4.00-12.00) mmol/L BUN 77.1 H (9.0-27.0) mg/dL Creatinine 2.1 H (0.6-1.5) mg/dL Est GFR (CKD-EPI) 31 L (>=60) BUN/Creatinine Ratio 36.71 H (12.00-20.00) Ratio Glucose 198 H (70-110) mg/dL AST 58 H (14-35) U/L Alkaline Phosphatase 184 H (41-126) U/L Total Protein 5.6 L (6.2-8.2) d/dL Albumin 2.2 L (3.8-4.9) d/dL Globulin 3.4 H (1.6-3.3) d/dL Albumin/Globulin Ratio 0.65 L (1.60-3.17) Ratio Urine Protein Trace H (Negative) - Imaging and Cardiology US - abdomen: report reviewed MRI - head: report reviewed Assessment and Plan (1) Liver mass Current Visit: Yes Status: Acute Priority: High Code(s): R16.0 - HEPATOMEGALY, NOT ELSEWHERE CLASSIFIED SNOMED Code(s): 030840795 (2) Lymphadenopathy Current Visit: Yes Status: Acute Priority: High Code(s): R59.1 - GENERALIZED ENLARGED LYMPH NODES SNOMED Code(s): 49525225 (3) Anemia Current Visit: Yes Status: Acute Priority: High Code(s): D64.9 - ANEMIA, UNSPECIFIED SNOMED Code(s): 700777649 Plan: Liver mass -CT AP 10/05 which noted multiple liver masses, largest measuring 10.6 cm, some intra-abdominal lymphadenopathy, rt cervical LAD, nodular thickening of the left adrenal gland, and bilateral pulmonary nodules concerning for metastatic malignancy. PET/CT 10/29/22 revealed findings compatible with suspected primary hepatic malignancy with metastatic disease -CT guided biopsy of the rt cervical lymph node is scheduled for 11/15/22 at 1pm at [facility]. -Plavix has been held since the . Discussed case with the nurse who is contacting Cardiology about holding patient's aspirin. Aspirin was still on the patient's med list as of 6 PM. I did discontinue it for the moment-so it isn't given inadvertently which could possibly cause further delay of patient's biopsy. It is not due till 9 AM tomorrow so, I will contact Cardiology [employer] TECHNICAL WR[employer] and review case with them. -F/u scheduled with Dr. Donald Edouard for 11/18-this may need to be moved based on how long before pathology is returned. Anemia -History of the same. Patient had EGD and colonoscopy April 2022. -Multifactorial including iron deficiency from poor diet, suspect a GI malignancy. -Patient has been receiving parenteral iron. He Received 3 doses while inpatient. He has also been transfused with 2 units of packed red blood cells. Hemoglobin is 8.7 today. -B12 deficiency. Patient has been receiving B12 injections. Next dose is scheduled in the outpatient setting for 11/11 -Hemoglobin stable today at 8.7 -Transfuse for hemoglobin less than 8 due to patient's cardiac symptoms.
[2022-11-08] MEDS: INSULIN ASPART (NovoLOG) 100 UNIT/ML VIAL SQ SCH ×2 (18:14→21:51)
[2022-11-08 19:18] LABS: Glucose,Whole Blood 336 mg/dL (70-110)
[2022-11-08] MEDS: ATORVASTATIN 40 MG TAB PO SCH (21:50)
[2022-11-09 05:40] LABS: Glucose,Whole Blood 183 mg/dL (70-110)
[2022-11-09] MEDS: INSULIN ASPART (NovoLOG) 100 UNIT/ML VIAL SQ SCH ×7 (05:43→22:41)
[2022-11-09 07:03] LABS: African American GFR (CKD) 37 (>60 ml/min/1.73 sqM); Anion Gap 10 mmol/L; Blood Urea Nitrogen 96 mg/dL (9-20); Calcium 8.6 mg/dL (8.4-10.2); Carbon Dioxide 20 mmol/L (22-30); Chloride 103 mmol/L (98-107); Glucose 146 mg/dL (74-99); Magnesium 2.1 mg/dL (1.6-2.3); Non-African American GFR(CKD) 32 (>60 ml/min/1.73 sqM); Sodium 133 mmol/L (137-145)
[2022-11-09 07:11] LABS: Potassium 5.7 mmol/L (3.5-5.1)
[2022-11-09 07:12] LABS: NT-Pro-B-Type Natriuretic Pept 5130 pg/mL
[2022-11-09] MEDS: METOPROLOL SUCCINATE (ER) 25 MG TAB.ER.24H PO SCH (08:41)
[2022-11-09] MEDS: ISOSORBIDE MONONITRATE ER 30 MG TAB.ER.24H PO SCH (08:41)
[2022-11-09] MEDS: FAMOTIDINE 20 MG TAB PO SCH (08:46)
[2022-11-09] MEDS: RANOLAZINE 500 MG TAB.ER.12H PO SCH ×2 (08:46→22:42)
[2022-11-09] MEDS ORDERED: SODIUM CHLORIDE 0.9% 500 ML 250 ML IV ONE (09:24)
[2022-11-09] MEDS ORDERED: SODIUM ZIRCONIUM CYCLOSILICATE 10 GM PACKET PO ONE (09:30)
[2022-11-09] MEDS: SODIUM CHLORIDE 0.9% 1,000 ML IV SCH (09:34)
[2022-11-09] MEDS: INSULIN DETEMIR (LEVEMIR) 100 UNIT/ML SYR SQ SCH (09:35)
[2022-11-09] MEDS: TAMSULOSIN 0.4 MG CAP.ER.24H PO SCH (09:35)
[2022-11-09 10:01] LABS: Anisocytosis Moderate; Hypochromasia Marked; MCH 36.2 pg (25.0-35.0); MCHC 37.6 g/dL (31.0-37.0); MCV 96.2 fL (80.0-100.0); Macrocytosis Slight; Mean Platelet Volume 9.8; Platelet Count 313 k/uL (150-450); RDW 21.2 % (11.5-15.5); WBC 24.9 k/uL (3.8-10.6)
[2022-11-09 10:15] LABS: Band Neutrophils % 2 %; Monocytes # (M) 0.75 k/uL (0-1.0); Neutrophils % (M) 92 %; Nucleated Red Blood Cells 0 /100 WBC (0-0); Total Cells Counted 200
[2022-11-09 10:16] LABS: Polychromasia Present
[2022-11-09 10:56] LABS: Glucose,Whole Blood 173 mg/dL (70-110)
[2022-11-09] MEDS ORDERED: CYANOCOBALAMIN 1,000 MCG/ML 1 ML VIAL IM ONE (12:27)
--- NOTE | 2022-11-09 12:34 | P.NPCON ---
History of Present Illness - Reason for Consult acute renal failure - History of Present Illness Reason for consultation: Acute kidney injury History of present illness: Patient is a 77-year-old male seen in consultation for acute kidney injury. Patient's creatinine on admission was near 1.1-1.2 and peaked to 2.1. It is 1.95 today. Patient came to the hospital on 11/02/2022 due to weakness going on for about 3 weeks. Patient's blood pressure has also been low this admission. Patient has history of lung and liver cancer. Patient is not a very reliable historian. He does admit to coronary artery disease with 4 cardiac stents. He denies use of nonsteroidals. Denies family history of renal disease. He does admit to history of diabetes. No vomiting or diarrhea. No edema. No gross hematuria. Patient's hemoglobin was noted to be as low as 6.3 this admission and he did receive blood transfusions. No active bleeding now. Most 5.7 this morning but was hemolyzed sample. Repeat potassium level came back at 5.0. Patient was on lisinopril outpatient and is currently held. Vital signs are stable. Blood pressure on the lower side this morning. General: No acute distress. HEENT: Head exam is unremarkable. LUNGS: No audible rhonchi or wheezes. HEART: Rate and Rhythm are regular. ABDOMEN: Nontender. EXTREMITITES: Trace edema. Past Medical History Past Medical History: Coronary Artery Disease (CAD), Chest Pain / Angina, Diabetes Mellitus, Hyperlipidemia, Hypertension, Vascular Disorder Additional Past Medical History / Comment(s): Hx rectal bleeding, hemorrhoids, diverticulosis., poor circulation -pt states stent left leg., neuropathy of feet., wound on ball of right foot., hospitalization 04/21/22 -04/30/22 for chest pain & anemia-egd and colonoscopy (gastritis & diverticulosis)., & received blood transfusions.,slight blockage carotid arteries.,. *See Cardiology H & P. History of Any Multi-Drug Resistant Organisms: None Reported Past Surgical History: Heart Catheterization, Heart Catheterization With Stent Additional Past Surgical History / Comment(s): *SEE CARDIOLOGY H&P. Hemorrhoidectomy about 40 years ago, colonoscopy, egd, skin cancer., stent left leg, varicose veins removed, heart cath aborted due to low hgb., debridement right foot callus. EGD/colonoscopy last admission negative for any type of bleed per patient Past Anesthesia/Blood Transfusion Reactions: No Reported Reaction Additional Past Anesthesia/Blood Transfusion Reaction / Comment(s): Pt had no reaction to blood transfusions and has had multiple in the past. Date of Last Stent Placement:: UNK Past Psychological History: No Psychological Hx Reported Smoking Status: Former smoker Past Alcohol Use History: Occasional Additional Past Alcohol Use History / Comment(s): Smoked for 50 years, quit 10 years ago per patient. Past Drug Use History: None Reported - Past Family History Father Family Medical History: Cancer Mother Family Medical History: Cancer Medications and Allergies Home Medications Medication Instructions Recorded Confirmed Type Atorvastatin [Lipitor] 40 mg PO HS 08/12/20 11/02/22 History lisinopriL [Zestril] 5 mg PO DAILY 08/12/20 11/02/22 History Multivit-Min/FA/Lycopen/Lutein 1 tab PO DAILY 04/08/22 11/02/22 History [Centrum Silver Men Tablet] Nitroglycerin Sl Tabs [Nitrostat] 0.4 mg SUBLINGUAL Q5M PRN 04/08/22 11/02/22 History Isosorbide Mononitrate ER [Imdur] 30 mg PO DAILY 30 Days #30 tab 04/11/22 11/02/22 Rx Metoprolol Succinate (ER) [Toprol 25 mg PO DAILY 30 Days #30 tab 04/11/22 11/02/22 Rx XL] Ranolazine [Ranexa] 500 mg PO Q12HR 30 Days #60 tab 04/11/22 11/02/22 Rx Aspirin [Adult Low Dose Aspirin EC] 81 mg PO DAILY 05/21/22 11/02/22 History Clopidogrel [Plavix] 75 mg PO DAILY #90 tab 06/01/22 11/02/22 Rx Cholecalciferol [Vitamin D3 (25 25 mcg PO DAILY 11/02/22 11/02/22 History Mcg = 1000 Iu)] Famotidine 40 mg PO BID 11/02/22 11/02/22 History Allergies Allergy/AdvReac Type Severity Reaction Status Date / Time No Known Allergies Allergy Verified 11/02/22 22:48 Physical Exam Vitals: Vital Signs Temp Pulse Pulse Pulse Pulse Pulse Resp 11/09/22 08:40 11/09/22 07:00 97.6 F 96 17 11/09/22 02:00 97.6 F 103 H 17 11/08/22 20:00 97.4 F L 86 17 11/08/22 14:50 97.4 F L 82 17 11/08/22 12:54 90 92 90 120 H BP BP Pulse Ox Pulse Ox Pulse Ox Pulse Ox Pulse Ox 11/09/22 08:40 96 11/09/22 07:00 88/56 97 11/09/22 02:00 134/72 100 11/08/22 20:00 100/65 100 11/08/22 14:50 99/67 100 11/08/22 12:54 96 98 98 79 L FiO2 11/09/22 08:40 21 11/09/22 07:00 11/09/22 02:00 11/08/22 20:00 11/08/22 14:50 11/08/22 12:54 Intake and Output 11/08/22 11/09/22 11/09/22 22:59 06:59 14:59 Output Total 451 375 Balance -451 -375 Output: Urine 450 375 Straight 450 375 Stool 1 Other: Voiding Method Toilet Toilet # Voids 2 # Bowel Movements 3 Results - Lab Results Most recent lab results Calcium 8.6 mg/dL (8.4-10.2) 11/09/22 06:03 Magnesium 2.1 mg/dL (1.6-2.3) 11/09/22 06:03 11/09/22 06:03 11/09/22 11:19 Assessment and Plan Plan: Assessment: 1. Acute kidney injury secondary to ischemic ATN secondary to hypotension and acute anemia. Creatinine peaked at 2.1 this admission and is 1.95 today. UA fairly benign. No hydronephrosis noted on kidney ultrasound. 2. Multiple liver masses with intra-abdominal lymphadenopathy, thickened left adrenal gland and pulmonary nodules concerning for metastatic malignancy. Being followed by oncology. Liver mass biopsy scheduled for 11/15/2022. 3. Acute blood loss anemia status post blood transfusion this admission. 4. Hyperkalemia. Hemolyzed sample. Repeat potassium level 5.0 today. 5. Diabetes mellitus. 6. Coronary artery disease with history of cardiac stenting. 7. Moderate aortic stenosis. Plan: Start normal saline at 50 mL an hour. Encourage oral intake. Check bladder scan to make sure no urinary retention. Avoid nephrotoxins. Continue to monitor renal function and urine output. Thank you for the consultation. I will continue to follow the patient with you during his hospital stay.
[2022-11-09 13:06] LABS: Glucose,Whole Blood 140 mg/dL (70-110)
--- NOTE | 2022-11-09 13:35 | P.PN ---
Subjective Progress Note Date: 11/09/22 Principal diagnosis: Generalized weakness, liver masses, lymphadenopathy In follow-up today patient denies any acute physical complaints on a focused ROS. No pain at this time Objective - Vital Signs Vital signs: Vital Signs Temp 97.6 F 11/09/22 07:00 Pulse 96 11/09/22 07:00 Resp 17 11/09/22 07:00 BP 88/56 11/09/22 07:00 Pulse Ox 96 11/09/22 08:40 FiO2 21 11/09/22 08:40 Intake & Output 11/08/22 11/09/22 11/09/22 18:59 06:59 18:59 Intake Total 236 Output Total 450 376 Balance -214 -376 Intake: Oral 236 Output: Urine 450 375 Straight 450 375 Stool 1 Other: Voiding Method Toilet # Voids 1 2 # Bowel Movements 3 - Constitutional General appearance: Present: cooperative, no acute distress - EENT Eyes: Present: anicteric sclerae, EOMI ENT: Present: hearing grossly normal - Respiratory Details: Respirations even and unlabored at rest - Integumentary Integumentary: Present: pale - Neurologic Neurologic: Present: CNII-XII intact (Grossly) - Musculoskeletal Musculoskeletal: Present: generalized weakness - Psychiatric Psychiatric: Present: A&O x's 3 - Labs CBC & Chem 7: 11/09/22 06:03 11/09/22 11:19 Labs: Abnormal Lab Results - Last 24 Hours (Table) 11/08/22 11/08/22 11/08/22 Range/Units 15:35 17:50 19:16 WBC (3.8-10.6) k/uL RBC (4.30-5.90) m/uL Hgb (13.0-17.5) gm/dL Hct (39.0-53.0) % MCH (25.0-35.0) pg MCHC (31.0-37.0) g/dL RDW (11.5-15.5) % Neutrophils # (Manual) (1.3-7.7) k/uL Sodium (137-145) mmol/L Potassium (3.5-5.1) mmol/L Carbon Dioxide (22-30) mmol/L BUN (9-20) mg/dL Creatinine (0.66-1.25) mg/dL Glucose (74-99) mg/dL POC Glucose (mg/dL) 278 H 336 H (70-110) mg/dL Hemoglobin A1c (<=6.0) % Urine Protein Trace H (Negative) 11/09/22 11/09/22 11/09/22 Range/Units 05:36 06:03 06:03 WBC 24.9 H (3.8-10.6) k/uL RBC 2.50 L (4.30-5.90) m/uL Hgb 9.0 L (13.0-17.5) gm/dL Hct 24.0 L (39.0-53.0) % MCH 36.2 H (25.0-35.0) pg MCHC 37.6 H (31.0-37.0) g/dL RDW 21.2 H (11.5-15.5) % Neutrophils # (Manual) 23.40 H (1.3-7.7) k/uL Sodium (137-145) mmol/L Potassium (3.5-5.1) mmol/L Carbon Dioxide (22-30) mmol/L BUN (9-20) mg/dL Creatinine (0.66-1.25) mg/dL Glucose (74-99) mg/dL POC Glucose (mg/dL) 183 H (70-110) mg/dL Hemoglobin A1c 6.1 H (<=6.0) % Urine Protein (Negative) 11/09/22 11/09/22 Range/Units 06:03 10:54 WBC (3.8-10.6) k/uL RBC (4.30-5.90) m/uL Hgb (13.0-17.5) gm/dL Hct (39.0-53.0) % MCH (25.0-35.0) pg MCHC (31.0-37.0) g/dL RDW (11.5-15.5) % Neutrophils # (Manual) (1.3-7.7) k/uL Sodium 133 L (137-145) mmol/L Potassium 5.7 H (3.5-5.1) mmol/L Carbon Dioxide 20 L (22-30) mmol/L BUN 96 H (9-20) mg/dL Creatinine 1.95 H (0.66-1.25) mg/dL Glucose 146 H (74-99) mg/dL POC Glucose (mg/dL) 173 H (70-110) mg/dL Hemoglobin A1c (<=6.0) % Urine Protein (Negative) - Imaging and Cardiology Chest x-ray: report reviewed Assessment and Plan (1) Liver mass Current Visit: Yes Status: Acute Priority: High Code(s): R16.0 - HEPATOMEGALY, NOT ELSEWHERE CLASSIFIED SNOMED Code(s): 218632369 (2) Lymphadenopathy Current Visit: Yes Status: Acute Priority: High Code(s): R59.1 - GENERALIZED ENLARGED LYMPH NODES SNOMED Code(s): 26346723 (3) Anemia Current Visit: Yes Status: Acute Priority: High Code(s): D64.9 - ANEMIA, UNSPECIFIED SNOMED Code(s): 071627325 Plan: Liver mass, LAD -CT AP 10/05 which noted multiple liver masses, largest measuring 10.6 cm, some intra-abdominal lymphadenopathy, rt cervical LAD, nodular thickening of the left adrenal gland, and bilateral pulmonary nodules concerning for metastatic maligna ncy. PET/CT 10/29/22 revealed findings compatible with suspected primary hepatic malignancy with metastatic disease -CT guided biopsy of the rt cervical lymph node Is now planned to be done while patient is still in the hospital. Core lymph node biopsy. Discussed case with area field manager. Appointment scheduled for 11/15/22 at 1pm is cancelled. -Aspirin and Plavix per Cardiology recommendations can be resumed after biopsy and it is felt that adequate hemostasis has been achieved per Radiologist per forming procedure -F/u scheduled with Dr. Donald Edouard for 11/18 for biopsy results and plan of care-will keep now that pt has had biopsy. Anemia -History of the same. EGD and colonoscopy April 2022. -Multifactorial including iron deficiency from poor diet, now suspect a GI malignancy. -Patient has been receiving parenteral iron. He Received 3 doses while inpatient. He has also been transfused with 2 units of packed red blood cells. Hemoglobin is 9 today. -B12 deficiency. Patient has been receiving B12 injections monthly. He is due, 1 dose ordered for today -Hemoglobin stable today at 9 -Transfuse for hemoglobin less than 8 due to patient's cardiac symptoms.
--- NOTE | 2022-11-09 16:19 | US ---
EXAMINATION TYPE: US biopsy lymph node DATE OF EXAM: 11/09/2022 3:54 PM CLINICAL INDICATION:Male, 77 years old with history of see IR consult for ordering information; , thy roid nodule. COMPARISON: Ultrasound imaging, CT imaging ATTENDING: Dr. Grant Ulloa PROCEDURE: Informed consent was obtained. The risks and benefits of the procedure were discussed with the patien t. The site was marked. Timeout procedure was performed Ultrasound imaging of the right neck was performed. The patient was prepped, draped in the usual sterile fashion, and locally anesthetized with 1% lidoca ine. Core biopsy was obtained with 18 gauge device x2. Samples were sent to the pathology department for further analysis. Patient tolerated the procedure without incident and was sent home in stable c ondition. IMPRESSION: Successful ultrasound guided 18-gauge core needle right neck lymph node/mass.
[2022-11-09 17:47] LABS: Glucose,Whole Blood 105 mg/dL (70-110)
--- NOTE | 2022-11-09 20:05 | P.PN ---
Subjective Progress Note Date: 11/09/22 This is a pleasant 77 year old male admitted for symptomatic anemia, hemoglobin is stable today at 8.7 patient has received total 2 units of PRBC. Patient complaining of constipation today and abdomen is distended, he was able to have a bowel movement. Creatinine has increased to 2.1 from 1.3 today and at beside concerned with his mentation. Patient noted to have urinary retention with bladder scan showing 645 mLs. Renal ultrasound showing small ascites no evidence of bladder distention or hydronephrosis. Neurology has signed off. Patient is scheduled for outpatient cervical lymph node and liver biopsy. 11/09/2022 Patient is evaluated today resting in bed. More fatigued than yesterday. Patient is noted to have urinary retention and wild catheter has been placed. Blood pressure on the lower side today high 80s systolic additionally patient is found to have proBNP of 5000. Patient received 250 cc fluid bolus and has been started on maintenance fluid 50 cc per hour. Not ready for discharge today. White count up to 24.9, hemoglobin stable at 9.0. Review of Systems Constitutional: Denied any fatigue denied any fever. Cardio vascular: denied any chest pain, palpitations Gastrointestinal: denied any nausea, vomiting, diarrhea Pulmonary: Denied any shortness of breath cough Neurologic denied any new focal deficits All inpatient medications were reviewed and appropriate changes in these medications as dictated in the interval history and assessment and plan. PHYSICAL EXAMINATION: GENERAL: The patient is alert and oriented x2, not in any acute distress. Well developed, well nourished. HEENT: Pupils are round and equally reacting to light. EOMI. No scleral icterus. No conjunctival pallor. Normocephalic, atraumatic. No pharyngeal erythema. No thyromegaly. CARDIOVASCULAR: S1 and S2 present. No murmurs, rubs, or gallops. PULMONARY: Chest is clear to auscultation, no wheezing or crackles. Chest is diminished ABDOMEN: Soft, nontender, distended, normoactive bowel sounds. No palpable organomegaly. MUSCULOSKELETAL: No joint swelling or deformity. EXTREMITIES: No cyanosis, clubbing, or pedal edema. NEUROLOGICAL: Gross neurological examination did not reveal any focal deficits. Diffuse generalized weakness. SKIN: No rashes. Assessment Liver mass with likely metastasis to the lung, retroperitoneal lymph nodes, and left adrenal gland Acute hypoxic respiratory failure Acute metabolic encephalopathy secondary to RAOUL Acute kidney injury secondary to ATN and obstructive uropathy Urinary retention requiring indwelling urinary catheter Anemia macrocytic, symptomatic with hemoglobin 8.7 s/p 2 units PRBC Angina at rest Coronary artery disease Diabetes mellitus Plan Nephrology consultation. Avoid constipation Flomax added and follow urinary catheterization protocol Scheduled to undergo lymph node biopsy today of right neck Outpatient liver biopsy plavix currently being held. Follow up BMP in the AM PT/OT consultation Chest xray ordered AM labs The impression and plan of care has been dictated by Laura Patel, Nurse Practitioner as directed. Dr. Kierra MD I have performed a history and physical examination and medical decision making of this patient, discussed the same with the dictator, and agree with the dictators assessment and plan as written, documented as a scribe. Based on total visit time, I have performed more than 50% of this visit. Objective - Vital Signs Vital signs: Vital Signs Temp 97.6 F 11/09/22 02:00 Pulse 103 H 11/09/22 02:00 Resp 17 11/09/22 02:00 BP 134/72 11/09/22 02:00 Pulse Ox 96 11/09/22 08:40 FiO2 21 11/09/22 08:40 Intake & Output 11/08/22 11/09/22 11/09/22 18:59 06:59 18:59 Intake Total 236 Output Total 450 376 Balance -214 -376 Intake: Oral 236 Output: Urine 450 375 Straight 450 375 Stool 1 Other: Voiding Method Toilet # Voids 1 2 # Bowel Movements 3 - Labs CBC & Chem 7: 11/09/22 06:03 11/09/22 11:19 Labs: Abnormal Lab Results - Last 24 Hours (Table) 11/08/22 11/08/22 11/08/22 Range/Units 03:23 15:35 17:50 Sodium (137-145) mmol/L Potassium (3.5-5.1) mmol/L Carbon Dioxide 17.5 L (21.6-31.8) mmol/L Anion Gap 17.50 H (4.00-12.00) mmol/L BUN 77.1 H (9.0-27.0) mg/dL Creatinine 2.1 H (0.6-1.5) mg/dL Est GFR (CKD-EPI) 31 L (>=60) BUN/Creatinine Ratio 36.71 H (12.00-20.00) Ratio Glucose 198 H (70-110) mg/dL POC Glucose (mg/dL) 278 H (70-110) mg/dL AST 58 H (14-35) U/L Alkaline Phosphatase 184 H (41-126) U/L Total Protein 5.6 L (6.2-8.2) d/dL Albumin 2.2 L (3.8-4.9) d/dL Globulin 3.4 H (1.6-3.3) d/dL Albumin/Globulin Ratio 0.65 L (1.60-3.17) Ratio Urine Protein Trace H (Negative) 11/08/22 11/09/22 11/09/22 Range/Units 19:16 05:36 06:03 Sodium 133 L (137-145) mmol/L Potassium 5.7 H (3.5-5.1) mmol/L Carbon Dioxide 20 L (21.6-31.8) mmol/L Anion Gap (4.00-12.00) mmol/L BUN 96 H (9.0-27.0) mg/dL Creatinine 1.95 H (0.6-1.5) mg/dL Est GFR (CKD-EPI) (>=60) BUN/Creatinine Ratio (12.00-20.00) Ratio Glucose 146 H (70-110) mg/dL POC Glucose (mg/dL) 336 H 183 H (70-110) mg/dL AST (14-35) U/L Alkaline Phosphatase (41-126) U/L Total Protein (6.2-8.2) d/dL Albumin (3.8-4.9) d/dL Globulin (1.6-3.3) d/dL Albumin/Globulin Ratio (1.60-3.17) Ratio Urine Protein (Negative) Assessment and Plan Time with Patient: Less than 30
[2022-11-09 21:08] LABS: Glucose,Whole Blood 108 mg/dL (70-110)
[2022-11-09 21:55] LABS: % Iron Saturation 15.05 (15.00-50.00)
[2022-11-09] MEDS: ATORVASTATIN 40 MG TAB PO SCH (22:42)
[2022-11-10] MEDS: SODIUM CHLORIDE 0.9% 1,000 ML IV SCH (05:28)
[2022-11-10 06:23] LABS: Glucose,Whole Blood 84 mg/dL (70-110)
[2022-11-10] MEDS: INSULIN ASPART (NovoLOG) 100 UNIT/ML VIAL SQ SCH ×5 (06:24→20:13)
[2022-11-10] MEDS: INSULIN DETEMIR (LEVEMIR) 100 UNIT/ML SYR SQ SCH (06:24)
[2022-11-10] MEDS: METOPROLOL SUCCINATE (ER) 25 MG TAB.ER.24H PO SCH (08:50)
[2022-11-10] MEDS: FAMOTIDINE 20 MG TAB PO SCH (08:50)
[2022-11-10] MEDS: TAMSULOSIN 0.4 MG CAP.ER.24H PO SCH (08:50)
[2022-11-10] MEDS: RANOLAZINE 500 MG TAB.ER.12H PO SCH ×2 (08:52→20:13)
[2022-11-10] MEDS: ISOSORBIDE MONONITRATE ER 30 MG TAB.ER.24H PO SCH (09:59)
[2022-11-10 11:02] LABS: Basophils # (A) 0.01 X 10*3/uL (0.00-0.10); Basophils % (A) 0 %; Eosinophils # (A) 0.01 X 10*3/uL (0.04-0.35); Eosinophils % (A) 0 %; HCT 28.6 % (39.6-50.0); HGB 8.7 d/dL (13.0-17.0); Lymphocytes # (A) 0.64 X 10*3/uL (0.90-5.00); MCH 29.9 pg (27.0-32.0); MCHC 30.4 d/dL (32.0-37.0); MCV 98.3 FL (80.0-97.0); Mean Platelet Volume 9.9 FL (9.5-12.2); Monocytes # (A) 1.01 X 10*3/uL (0.20-1.00); Monocytes % (A) 4.8 %; NRBC Per 100 WBC 0 X 10*3/uL (0.00-0.01); Neutrophils # (A) 19.21 X 10*3/uL (1.80-7.70); Neutrophils % (A) 91.6 %; Platelet Count 361 X 10*3/uL (140-440); RBC 2.91 X 10*6/uL (4.40-5.60); RDW 23.8 % (11.5-14.5)
[2022-11-10 11:18] LABS: Magnesium 2.2 mg/dL (1.5-2.4)
[2022-11-10 11:53] LABS: BUN/Creat Ratio 46.11 Ratio (12.00-20.00); Blood Urea Nitrogen 87.6 mg/dL (9.0-27.0); Calcium 8.7 mg/dL (8.7-10.3); Carbon Dioxide 20.5 mmol/L (21.6-31.8); Chloride 105 mmol/L (96-109); Glucose 57 mg/dL (70-110); Potassium 4.4 mmol/L (3.5-5.5); Sodium 139 mmol/L (135-145)
[2022-11-10 12:51] LABS: Glucose,Whole Blood 119 mg/dL (70-110)
--- NOTE | 2022-11-10 13:07 | P.PN ---
Subjective Patient is seen in follow-up for acute kidney injury. Renal function stable. Resting in bed. Hemodynamically stable. Has Baum catheter. Nonoliguric. Vital signs are stable. General: No acute distress. Resting in bed. HEENT: Head exam is unremarkable. On nasal cannula. LUNGS: Scattered rhonchi. HEART: Rate and Rhythm are regular. ABDOMEN: Soft, nontender. EXTREMITITES: No edema. Objective - Vital Signs Vital signs: Vital Signs Temp 96.2 F L 11/10/22 07:00 Pulse 96 11/10/22 07:00 Resp 20 11/10/22 07:00 BP 112/67 11/10/22 07:00 Pulse Ox 94 L 11/10/22 07:00 FiO2 21 11/09/22 08:40 Intake & Output 11/09/22 11/10/22 11/10/22 18:59 06:59 18:59 Intake Total 600 711 Output Total 300 602 Balance 300 -602 711 Weight 74.843 kg Intake: Oral 600 711 Output: Urine 300 600 Stool 2 Other: Voiding Method Indwelling Catheter Indwelling Catheter # Bowel Movements 1 - Labs CBC & Chem 7: 11/10/22 06:26 11/10/22 06:26 Labs: Abnormal Lab Results - Last 24 Hours (Table) 11/09/22 11/09/22 11/10/22 Range/Units 06:03 13:04 06:26 WBC (4.50-10.00) X 10*3/uL RBC (4.40-5.60) X 10*6/uL Hgb (13.0-17.0) d/dL Hct (39.6-50.0) % MCV (80.0-97.0) FL MCHC (32.0-37.0) d/dL RDW (11.5-14.5) % Neutrophils # (1.80-7.70) X 10*3/uL Lymphocytes # (0.90-5.00) X 10*3/uL Monocytes # (0.20-1.00) X 10*3/uL Eosinophils # (0.04-0.35) X 10*3/uL Carbon Dioxide 20.5 L (21.6-31.8) mmol/L Anion Gap 13.50 H (4.00-12.00) mmol/L BUN 87.6 H (9.0-27.0) mg/dL Creatinine 1.9 H (0.6-1.5) mg/dL Est GFR (CKD-EPI) 35 L (>=60) BUN/Creatinine Ratio 46.11 H (12.00-20.00) Ratio Glucose 57 L (70-110) mg/dL POC Glucose (mg/dL) 140 H (70-110) mg/dL Iron 28 L (65-175) UG/DL TIBC 186 L (228-460) UG/DL Transferrin 133.0 L (204.0-354.0) mg/dL Ferritin 1943.0 H (22.0-322.0) ng/mL 11/10/22 11/10/22 Range/Units 06:26 12:49 WBC 21.00 H (4.50-10.00) X 10*3/uL RBC 2.91 L (4.40-5.60) X 10*6/uL Hgb 8.7 L (13.0-17.0) d/dL Hct 28.6 L (39.6-50.0) % MCV 98.3 H (80.0-97.0) FL MCHC 30.4 L (32.0-37.0) d/dL RDW 23.8 H (11.5-14.5) % Neutrophils # 19.21 H (1.80-7.70) X 10*3/uL Lymphocytes # 0.64 L (0.90-5.00) X 10*3/uL Monocytes # 1.01 H (0.20-1.00) X 10*3/uL Eosinophils # 0.01 L (0.04-0.35) X 10*3/uL Carbon Dioxide (21.6-31.8) mmol/L Anion Gap (4.00-12.00) mmol/L BUN (9.0-27.0) mg/dL Creatinine (0.6-1.5) mg/dL Est GFR (CKD-EPI) (>=60) BUN/Creatinine Ratio (12.00-20.00) Ratio Glucose (70-110) mg/dL POC Glucose (mg/dL) 119 H (70-110) mg/dL Iron (65-175) UG/DL TIBC (228-460) UG/DL Transferrin (204.0-354.0) mg/dL Ferritin (22.0-322.0) ng/mL Assessment and Plan Plan: Assessment: 1. Acute kidney injury secondary to ischemic ATN secondary to hypotension and acute anemia. Creatinine peaked at 2.1 this admission and is stable at 1.9 today. UA fairly benign. No hydronephrosis noted on kidney ultrasound. 2. Multiple liver masses with intra-abdominal lymphadenopathy, thickened left adrenal gland and pulmonary nodules concerning for metastatic malignancy. Being followed by oncology. Cervical lymph node biopsy pending. 3. Acute blood loss anemia status post blood transfusion this admission. High ferritin noted. Hematology following. Hemoglobin 8.7 today. 4. Hyperkalemia. Hemolyzed sample. Normal today. 5. Diabetes mellitus. 6. Coronary artery disease with history of cardiac stenting. 7. Moderate aortic stenosis. 8. Urinary retention. On Flomax. Baum catheter placed. Plan: Heplock IVFs. Encourage oral intake. Avoid nephrotoxins. Continue to monitor renal function and urine output. Maintain Baum catheter.
[2022-11-10 14:29] LABS: Glucose,Whole Blood 126 mg/dL (70-110)
[2022-11-10] MEDS ORDERED: SODIUM CHLORIDE 0.9% 500 ML 500 ML IV ONE (14:37)
--- NOTE | 2022-11-10 15:03 | P.PN ---
Subjective Progress Note Date: 11/10/22 Principal diagnosis: Generalized weakness, liver masses, lymphadenopathy In follow-up today Had to awaken patient, he has complaints of a dry mouth, denies any pain. No complaints of discomfort at the biopsy site or difficulty swallowing. Objective - Vital Signs Vital signs: Vital Signs Temp 96.2 F L 11/10/22 07:00 Pulse 96 11/10/22 07:00 Resp 20 11/10/22 07:00 BP 112/67 11/10/22 07:00 Pulse Ox 96 11/10/22 14:45 FiO2 21 11/09/22 08:40 Intake & Output 11/09/22 11/10/22 11/10/22 18:59 06:59 18:59 Intake Total 600 711 Output Total 300 602 Balance 300 -602 711 Weight 74.843 kg Intake: Oral 600 711 Output: Urine 300 600 Stool 2 Other: Voiding Method Indwelling Catheter Indwelling Catheter # Bowel Movements 1 - Constitutional General appearance: Present: cooperative, no acute distress, thin - EENT Eyes: Present: anicteric sclerae, EOMI ENT: Present: hearing grossly normal - Neck Neck: Present: lymphadenopathy (Right neck, bandage in place from biopsy, no unusual bruising or swelling) - Respiratory Details: Respirations even and unlabored at rest - Cardiovascular Details: Skin warm and dry to the touch - Integumentary Integumentary: Present: pale - Neurologic Neurologic: Present: CNII-XII intact (Grossly) - Musculoskeletal Musculoskeletal: Present: generalized weakness - Psychiatric Psychiatric Comment(s): Easily awakened, oriented to self, place and time - Labs CBC & Chem 7: 11/10/22 06:26 11/10/22 06:26 Labs: Abnormal Lab Results - Last 24 Hours (Table) 11/09/22 11/10/22 11/10/22 Range/Units 06:03 06:26 06:26 WBC 21.00 H (4.50-10.00) X 10*3/uL RBC 2.91 L (4.40-5.60) X 10*6/uL Hgb 8.7 L (13.0-17.0) d/dL Hct 28.6 L (39.6-50.0) % MCV 98.3 H (80.0-97.0) FL MCHC 30.4 L (32.0-37.0) d/dL RDW 23.8 H (11.5-14.5) % Neutrophils # 19.21 H (1.80-7.70) X 10*3/uL Lymphocytes # 0.64 L (0.90-5.00) X 10*3/uL Monocytes # 1.01 H (0.20-1.00) X 10*3/uL Eosinophils # 0.01 L (0.04-0.35) X 10*3/uL Carbon Dioxide 20.5 L (21.6-31.8) mmol/L Anion Gap 13.50 H (4.00-12.00) mmol/L BUN 87.6 H (9.0-27.0) mg/dL Creatinine 1.9 H (0.6-1.5) mg/dL Est GFR (CKD-EPI) 35 L (>=60) BUN/Creatinine Ratio 46.11 H (12.00-20.00) Ratio Glucose 57 L (70-110) mg/dL POC Glucose (mg/dL) (70-110) mg/dL Iron 28 L (65-175) UG/DL TIBC 186 L (228-460) UG/DL Transferrin 133.0 L (204.0-354.0) mg/dL Ferritin 1943.0 H (22.0-322.0) ng/mL 11/10/22 11/10/22 Range/Units 12:49 14:28 WBC (4.50-10.00) X 10*3/uL RBC (4.40-5.60) X 10*6/uL Hgb (13.0-17.0) d/dL Hct (39.6-50.0) % MCV (80.0-97.0) FL MCHC (32.0-37.0) d/dL RDW (11.5-14.5) % Neutrophils # (1.80-7.70) X 10*3/uL Lymphocytes # (0.90-5.00) X 10*3/uL Monocytes # (0.20-1.00) X 10*3/uL Eosinophils # (0.04-0.35) X 10*3/uL Carbon Dioxide (21.6-31.8) mmol/L Anion Gap (4.00-12.00) mmol/L BUN (9.0-27.0) mg/dL Creatinine (0.6-1.5) mg/dL Est GFR (CKD-EPI) (>=60) BUN/Creatinine Ratio (12.00-20.00) Ratio Glucose (70-110) mg/dL POC Glucose (mg/dL) 119 H 126 H (70-110) mg/dL Iron (65-175) UG/DL TIBC (228-460) UG/DL Transferrin (204.0-354.0) mg/dL Ferritin (22.0-322.0) ng/mL Assessment and Plan (1) Liver mass Current Visit: Yes Status: Acute Priority: High Code(s): R16.0 - HEPATOME MADALYN, NOT ELSEWHERE CLASSIFIED SNOMED Code(s): 907164247 (2) Lymphadenopathy Current Visit: Yes Status: Acute Priority: High Code(s): R59.1 - GENERAL IZED ENLARGED LYMPH NODES SNOMED Code(s): 51395082 (3) Anemia Current Visit: Yes Status: Acute Priority: High Code(s): D64.9 - ANEMIA, UNSPECIFIED SNOMED Code(s): 274976186 Plan: Liver mass, LAD -CT AP 10/05 which noted multiple liver masses, largest measuring 10.6 cm, some intra-abdominal lymphadenopathy, rt cervical LAD, nodular thickening of the left adrenal gland, and bilateral pulmonary nodules concerning for metastatic malignancy. PET/CT 10/29/22 revealed findings compatible with suspected primary hepatic malignancy with metastatic disease -CT guided core biopsy of the rt cervical lymph completed. Path pending -Aspirin and Plavix per Cardiology recommendations can be resumed after biopsy and it is felt that adequate hemostasis has been achieved per Radiologist performing procedure -F/u scheduled with Dr. Donald Edouard for 11/18 for biopsy results and plan of care-will keep now that pt has had biopsy. Anemia -History of the same. EGD and colonoscopy April 2022. -Multifactorial including iron deficiency from poor diet, now suspect a GI malignancy. -Patient has been receiving parenteral iron. He Received 3 doses while inpatient. He has also been transfused with 2 units of packed red blood cells. Hemoglobin is 9 today. -B12 deficiency. Patient has been receiving B12 injections monthly. He is due, 1 dose ordered for today -Hemoglobin stable today at 8.7 -Transfuse for hemoglobin less than 8 due to patient's cardiac symptoms.
--- NOTE | 2022-11-10 15:18 | P.PN ---
Subjective Progress Note Date: 11/10/22 This is a pleasant 77 year old male admitted for symptomatic anemia, hemoglobin is stable today at 8.7 patient has received total 2 units of PRBC. Patient complaining of constipation today and abdomen is distended, he was able to have a bowel movement. Creatinine has increased to 2.1 from 1.3 today and at beside concerned with his mentation. Patient noted to have urinary retention with bladder scan showing 645 mLs. Renal ultrasound showing small ascites no evidence of bladder distention or hydronephrosis. Neurology has signed off. Patient is scheduled for outpatient cervical lymph node and liver biopsy. 11/09/2022 Patient is evaluated today resting in bed. More fatigued than yesterday. Patient is noted to have urinary retention and wild catheter has been placed. Blood pressure on the lower side today high 80s systolic additionally patient is found to have proBNP of 5000. Patient received 250 cc fluid bolus and has been started on maintenance fluid 50 cc per hour. Not ready for discharge today. White count up to 24.9, hemoglobin stable at 9.0. 11/10/2022 Patient evaluated today overall reports feeling better than yesterday. He is more awake and alert. Lymph biopsy results pending. Per family the liver biopsy was to be done outpatient thru [facility]. Plavix has been held for this need to discuss and confirm with care team regarding the biopsy so plavix and aspirin can be resumed as soon as possible. Blood glucose is improving insulin will be decreased to avoid hypoglycemia. White count remains elevated patient will be started on empiric antibiotics. Nephrology following closely. Review of Systems Constitutional: Reports fatigue, denied any fever. Cardio vascular: denied any chest pain, palpitations Gastrointestinal: denied any nausea, vomiting, diarrhea Pulmonary: Denied any shortness of breath cough Neurologic denied any new focal deficits Reports weakness. All inpatient medications were reviewed and appropriate changes in these medications as dictated in the interval history and assessment and plan. PHYSICAL EXAMINATION: GENERAL: The patient is alert and oriented x2-3, not in any acute distress. Well developed, well nourished. HEENT: Pupils are round and equally reacting to light. EOMI. No scleral icterus. No conjunctival pallor. Normocephalic, atraumatic. No pharyngeal erythema. No thyromegaly. CARDIOVASCULAR: S1 and S2 present. No murmurs, rubs, or gallops. PULMONARY: Chest is clear to auscultation, no wheezing or crackles. Chest is diminished ABDOMEN: Soft, nontender, mildly distended, normoactive bowel sounds. No palpable organomegaly. MUSCULOSKELETAL: No joint swelling or deformity. EXTREMITIES: No cyanosis, clubbing, Mild ankle edema. NEUROLOGICAL: Gross neurological examination did not reveal any focal deficits. Diffuse generalized weakness. SKIN: No rashes. 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 Acute hypoxic respiratory failure Acute metabolic encephalopathy secondary to RAOUL Acute kidney injury secondary to ATN and obstructive uropathy Urinary retention requiring indwelling urinary catheter Anemia macrocytic, symptomatic with hemoglobin 8.7 s/p 2 units PRBC Angina at rest Coronary artery disease Diabetes mellitus GI prophylaxis No Code Plan Nephrology consultation. Avoid constipation Flomax added and continue with indwelling catheter Scheduled to undergo lymph node biopsy today of right neck Outpatient liver biopsy plavix currently being held. Confirm biopsy date resume plavix and aspirin as soon as possible Follow up BMP in the AM PT/OT consultation AM labs The impression and plan of care has been dictated by Laura Patel, Nurse Practitioner as directed. Dr. Kierra MD I have performed a history and physical examination and medical decision making of this patient, discussed the same with the dictator, and agree with the dictators assessment and plan as written, documented as a scribe. Based on total visit time, I have performed more than 50% of this visit. Objective - Vital Signs Vital signs: Vital Signs Temp 96.2 F L 11/10/22 07:00 Pulse 96 11/10/22 07:00 Resp 20 11/10/22 07:00 BP 112/67 11/10/22 07:00 Pulse Ox 94 L 11/10/22 07:00 FiO2 21 11/09/22 08:40 Intake & Output 11/09/22 11/10/22 11/10/22 18:59 06:59 18:59 Intake Total 600 Output Total 300 602 Balance 300 -602 Weight 74.843 kg Intake: Oral 600 Output: Urine 300 600 Stool 2 Other: Voiding Method Indwelling Catheter Indwelling Catheter # Bowel Movements 1 - Labs CBC & Chem 7: 11/10/22 06:26 11/10/22 06:26 Labs: Abnormal Lab Results - Last 24 Hours (Table) 11/09/22 11/09/22 11/09/22 Range/Units 06:03 06:03 06:03 WBC 24.9 H (3.8-10.6) k/uL RBC 2.50 L (4.30-5.90) m/uL Hgb 9.0 L (13.0-17.5) gm/dL Hct 24.0 L (39.0-53.0) % MCH 36.2 H (25.0-35.0) pg MCHC 37.6 H (31.0-37.0) g/dL RDW 21.2 H (11.5-15.5) % Neutrophils # (Manual) 23.40 H (1.3-7.7) k/uL POC Glucose (mg/dL) (70-110) mg/dL Hemoglobin A1c 6.1 H (<=6.0) % Iron 28 L (65-175) UG/DL TIBC 186 L (228-460) UG/DL Transferrin 133.0 L (204.0-354.0) mg/dL Ferritin 1943.0 H (22.0-322.0) ng/mL 11/09/22 11/09/22 Range/Units 10:54 13:04 WBC (3.8-10.6) k/uL RBC (4.30-5.90) m/uL Hgb (13.0-17.5) gm/dL Hct (39.0-53.0) % MCH (25.0-35.0) pg MCHC (31.0-37.0) g/dL RDW (11.5-15.5) % Neutrophils # (Manual) (1.3-7.7) k/uL POC Glucose (mg/dL) 173 H 140 H (70-110) mg/dL Hemoglobin A1c (<=6.0) % Iron (65-175) UG/DL TIBC (228-460) UG/DL Transferrin (204.0-354.0) mg/dL Ferritin (22.0-322.0) ng/mL Assessment and Plan Time with Patient: Less than 30
--- NOTE | 2022-11-10 15:32 | XR ---
EXAMINATION TYPE: XR abdomen 1V DATE OF EXAM: 11/10/2022 3:23 PM INDICATION: Patient age:Male; 77 years old; Reason for study: abdomen distention; COMPARISON: None. TECHNIQUE: One radiographic view of the abdomen was obtained. FINDINGS: Dilated gaseous filled loops of bowel are seen throughout the abdomen the largest measuring up to 5.3 cm. Unclear if this is colon or small bowel.. There is no evidence for organomegaly or pne umoperitoneum. The osseous structures are intact. No abnormal calcifications are present. Fecal mat erial and gas are demonstrated throughout the colon and rectum. Left inguinal stent graft. Suspected high density stool projects over the sacrum. IMPRESSION: Dilated loops of gas-filled bowel throughout the abdomen. There is concern for obstruction consider C T imaging.
[2022-11-10] MEDS ORDERED: bisacodyL 10 MG SUPP RECTAL STA (15:57)
[2022-11-10 16:34] LABS: Glucose,Whole Blood 118 mg/dL (70-110)
[2022-11-10] MEDS ORDERED: LIDOCAINE 2% URO-JET JELLY 5 ML KIT URETHRAL STA (17:17)
--- NOTE | 2022-11-10 17:29 | P.GSCN ---
History of Present Illness Consult date: 11/10/22 Reason for Consult: Baum catheter not draining Requesting physician: Michael Lopez History of present illness: The patient is a 77-year-old white male admitted with weakness and chest pain. He has been found to have multiple pulmonary nodules, hepatic masses, and intra- abdominal adenopathy. He underwent needle biopsy of a right cervical lymph node yesterday. The results are pending. Patient reports an unremarkable urologic history. Renal ultrasound performed 11/08/2022 showed no hydronephrosis. Bladder distention was noted, as well as a small amount of ascites. CT scan performed on 10/13/2022 showed possible bladder distention, with no evidence of ascites. Review of Systems - Constitutional Reports weakness Past Medical History Past Medical History: Coronary Artery Disease (CAD), Chest Pain / Angina, Diabetes Mellitus, Hyperlipidemia, Hypertension, Vascular Disorder Additional Past Medical History / Comment(s): Hx rectal bleeding, hemorrhoids, diverticulosis., poor circulation -pt states stent left leg., neuropathy of feet., wound on ball of right foot., hospitalization 04/21/22 -04/30/22 for chest pain & anemia-egd and colonoscopy (gastritis & diverticulosis)., & received blood transfusions.,slight blockage carotid arteries.,. *See Cardiology H & P. History of Any Multi-Drug Resistant Organisms: None Reported Past Surgical History: Heart Catheterization, Heart Catheterization With Stent Additional Past Surgical History / Comment(s): *SEE CARDIOLOGY H&P. Hemorrhoidectomy about 40 years ago, colonoscopy, egd, skin cancer., stent left leg, varicose veins removed, heart cath aborted due to low hgb., debridement right foot callus. EGD/colonoscopy last admission negative for any type of bleed per patient Past Anesthesia/Blood Transfusion Reactions: No Reported Reaction Additional Past Anesthesia/Blood Transfusion Reaction / Comm: Pt had no reaction to blood transfusions and has had multiple in the past. Date of Last Stent Placement:: UNK Past Psychological History: No Psychological Hx Reported Smoking Status: Former smoker Past Alcohol Use History: Occasional Additional Past Alcohol Use History / Comment(s): Smoked for 50 years, quit 10 years ago per patient. Past Drug Use History: None Reported - Past Family History Father Family Medical History: Cancer Mother Family Medical History: Cancer Medications and Allergies Home Medications Medication Instructions Recorded Confirmed Type Atorvastatin [Lipitor] 40 mg PO HS 08/12/20 11/02/22 History lisinopriL [Zestril] 5 mg PO DAILY 08/12/20 11/02/22 History Multivit-Min/FA/Lycopen/Lutein 1 tab PO DAILY 04/08/22 11/02/22 History [Centrum Silver Men Tablet] Nitroglycerin Sl Tabs [Nitrostat] 0.4 mg SUBLINGUAL Q5M PRN 04/08/22 11/02/22 History Isosorbide Mononitrate ER [Imdur] 30 mg PO DAILY 30 Days #30 tab 04/11/22 11/02/22 Rx Metoprolol Succinate (ER) [Toprol 25 mg PO DAILY 30 Days #30 tab 04/11/22 11/02/22 Rx XL] Ranolazine [Ranexa] 500 mg PO Q12HR 30 Days #60 tab 04/11/22 11/02/22 Rx Aspirin [Adult Low Dose Aspirin EC] 81 mg PO DAILY 05/21/22 11/02/22 History Clopidogrel [Plavix] 75 mg PO DAILY #90 tab 06/01/22 11/02/22 Rx Cholecalciferol [Vitamin D3 (25 25 mcg PO DAILY 11/02/22 11/02/22 History Mcg = 1000 Iu)] Famotidine 40 mg PO BID 11/02/22 11/02/22 History Allergies Allergy/AdvReac Type Severity Reaction Status Date / Time No Known Allergies Allergy Verified 11/02/22 22:48 Surgical - Exam Vital Signs Temp Pulse Resp BP Pulse Ox 97.7 F 92 22 101/64 99 11/02/22 21:18 11/02/22 21:18 11/02/22 21:18 11/02/22 21:18 11/02/22 21:18 - General The patient is a well-developed, well-nourished white male who appears very weak. - Respiratory normal respiratory effort - Abdomen Abdomen: soft, non tender, no guarding, no rigid, no rebound - Genitourinary normal penis with no external lesions, testicles non-tender - Psychiatric oriented to time, oriented to person, oriented to place, speech is normal, memory intact Results - Labs 11/10/22 06:26 11/10/22 06:26 Abnormal Lab Results - Last 24 Hours (Table) 11/09/22 11/10/22 11/10/22 Range/Units 06:03 06:26 06:26 WBC 21.00 H (4.50-10.00) X 10*3/uL RBC 2.91 L (4.40-5.60) X 10*6/uL Hgb 8.7 L (13.0-17.0) d/dL Hct 28.6 L (39.6-50.0) % MCV 98.3 H (80.0-97.0) FL MCHC 30.4 L (32.0-37.0) d/dL RDW 23.8 H (11.5-14.5) % Neutrophils # 19.21 H (1.80-7.70) X 10*3/uL Lymphocytes # 0.64 L (0.90-5.00) X 10*3/uL Monocytes # 1.01 H (0.20-1.00) X 10*3/uL Eosinophils # 0.01 L (0.04-0.35) X 10*3/uL Carbon Dioxide 20.5 L (21.6-31.8) mmol/L Anion Gap 13.50 H (4.00-12.00) mmol/L BUN 87.6 H (9.0-27.0) mg/dL Creatinine 1.9 H (0.6-1.5) mg/dL Est GFR (CKD-EPI) 35 L (>=60) BUN/Creatinine Ratio 46.11 H (12.00-20.00) Ratio Glucose 57 L (70-110) mg/dL POC Glucose (mg/dL) (70-110) mg/dL Plasma Lactic Acid Dominick (0.7-2.0) mmol/L Iron 28 L (65-175) UG/DL TIBC 186 L (228-460) UG/DL Transferrin 133.0 L (204.0-354.0) mg/dL Ferritin 1943.0 H (22.0-322.0) ng/mL 11/10/22 11/10/22 11/10/22 Range/Units 12:49 14:28 15:16 WBC (4.50-10.00) X 10*3/uL RBC (4.40-5.60) X 10*6/uL Hgb (13.0-17.0) d/dL Hct (39.6-50.0) % MCV (80.0-97.0) FL MCHC (32.0-37.0) d/dL RDW (11.5-14.5) % Neutrophils # (1.80-7.70) X 10*3/uL Lymphocytes # (0.90-5.00) X 10*3/uL Monocytes # (0.20-1.00) X 10*3/uL Eosinophils # (0.04-0.35) X 10*3/uL Carbon Dioxide (21.6-31.8) mmol/L Anion Gap (4.00-12.00) mmol/L BUN (9.0-27.0) mg/dL Creatinine (0.6-1.5) mg/dL Est GFR (CKD-EPI) (>=60) BUN/Creatinine Ratio (12.00-20.00) Ratio Glucose (70-110) mg/dL POC Glucose (mg/dL) 119 H 126 H (70-110) mg/dL Plasma Lactic Acid Dominick 4.4 H* (0.7-2.0) mmol/L Iron (65-175) UG/DL TIBC (228-460) UG/DL Transferrin (204.0-354.0) mg/dL Ferritin (22.0-322.0) ng/mL 11/10/22 Range/Units 16:23 WBC (4.50-10.00) X 10*3/uL RBC (4.40-5.60) X 10*6/uL Hgb (13.0-17.0) d/dL Hct (39.6-50.0) % MCV (80.0-97.0) FL MCHC (32.0-37.0) d/dL RDW (11.5-14.5) % Neutrophils # (1.80-7.70) X 10*3/uL Lymphocytes # (0.90-5.00) X 10*3/uL Monocytes # (0.20-1.00) X 10*3/uL Eosinophils # (0.04-0.35) X 10*3/uL Carbon Dioxide (21.6-31.8) mmol/L Anion Gap (4.00-12.00) mmol/L BUN (9.0-27.0) mg/dL Creatinine (0.6-1.5) mg/dL Est GFR (CKD-EPI) (>=60) BUN/Creatinine Ratio (12.00-20.00) Ratio Glucose (70-110) mg/dL POC Glucose (mg/dL) 118 H (70-110) mg/dL Plasma Lactic Acid Dominick (0.7-2.0) mmol/L Iron (65-175) UG/DL TIBC (228-460) UG/DL Transferrin (204.0-354.0) mg/dL Ferritin (22.0-322.0) ng/mL Diabetes panel 11/10/22 Range/Units 06:26 Sodium 139 (135-145) mmol/L Potassium 4.4 (3.5-5.5) mmol/L Chloride 105 (96-109) mmol/L Carbon Dioxide 20.5 L (21.6-31.8) mmol/L BUN 87.6 H (9.0-27.0) mg/dL Creatinine 1.9 H (0.6-1.5) mg/dL Glucose 57 L (70-110) mg/dL Calcium 8.7 (8.7-10.3) mg/dL Calcium panel 11/10/22 Range/Units 06:26 Calcium 8.7 (8.7-10.3) mg/dL Pituitary panel 11/10/22 Range/Units 06:26 Sodium 139 (135-145) mmol/L Potassium 4.4 (3.5-5.5) mmol/L Chloride 105 (96-109) mmol/L Carbon Dioxide 20.5 L (21.6-31.8) mmol/L BUN 87.6 H (9.0-27.0) mg/dL Creatinine 1.9 H (0.6-1.5) mg/dL Glucose 57 L (70-110) mg/dL Calcium 8.7 (8.7-10.3) mg/dL Adrenal panel 11/10/22 Range/Units 06:26 Sodium 139 (135-145) mmol/L Potassium 4.4 (3.5-5.5) mmol/L Chloride 105 (96-109) mmol/L Carbon Dioxide 20.5 L (21.6-31.8) mmol/L BUN 87.6 H (9.0-27.0) mg/dL Creatinine 1.9 H (0.6-1.5) mg/dL Glucose 57 L (70-110) mg/dL Calcium 8.7 (8.7-10.3) mg/dL - Imaging CT scan - abdomen: report reviewed, image reviewed US - kidney/bladder: report reviewed, image reviewed Assessment and Plan (1) Retention of urine, unspecified Current Visit: Yes Status: Acute Code(s): R33.9 - RETENTION OF URINE, UNSPECIFIED SNOMED Code(s): 536235663 Plan: The penis was prepped and draped sterilely. A 16-Macanese coud-tip Baum catheter was gradually advanced through the urethra and presumably into the bladder without resistance. The Baum catheter balloon was cautiously inflated without meeting resistance or causing patient discomfort, and the catheter was then pulled back such that the Baum catheter balloon appeared to meet the bladder neck. Only a very small amount of urine drained. It was possible to irrigate the catheter. The catheter was left to gravity drainage. It is my clinical impression that the Baum catheter is properly positioned within the bladder, and that the bladder scan reading is erroneously high due to ascites. I have ordered a bladder ultrasound to confirm that the catheter is properly placed and that the bladder is empty. If not, bedside flexible cystoscopy may be required. Time with Patient: Greater than 30
[2022-11-10] MEDS: PIPERACILLIN-TAZOBACTAM 3.375 GM in SODIUM CHLORIDE 0.9% 100 ML IVPB SCH (17:42)
--- NOTE | 2022-11-10 19:50 | US ---
EXAMINATION TYPE: US bladder DATE OF EXAM: 11/10/2022 COMPARISON: EXAMINATION TYPE: US bladder DATE OF EXAM: 11/10/2022 COMPARISON: 11/08/22 CLINICAL INDICATION: Male, 77 years old with history of Urinary retention; urinary retention. Wild p laced an hour ago TECHNIQUE: Multiple sonographic images of the bladder are obtained. FINDINGS: EXAM MEASUREMENTS: SALAD COUNTER ATTENDANT NOTES: Blader appears mostly empty, due to wild. Wall appears thickened, could be due to empty bladder Color Doppler performed to assess ureteral jets. Bilateral Jets seen: No IMPRESSION: 1. Urinary bladder appears decompressed with Wild catheter balloon present. No urinary retention wit h catheter present
[2022-11-10 20:05] LABS: Glucose,Whole Blood 165 mg/dL (70-110)
[2022-11-10] MEDS: HEPARIN SODIUM,PORCINE/PF 5,000 UNIT/0.5 ML SYRINGE SQ SCH (20:13)
[2022-11-10] MEDS: ATORVASTATIN 40 MG TAB PO SCH (20:13)
[2022-11-10 23:05] LABS: Appearance,Urine Cloudy (Clear); Bilirubin,Urine Negative (Negative); Blood,Urine Moderate (Negative); Color,Urine Red; Glucose,Urine (UA) Negative (Negative); Hyaline Casts,Urine 4 /lpf (0-2); Ketones,Urine Negative (Negative); Leukocyte Esterase,Urine Small (Negative); Mucus,Urine Rare /hpf; Nitrite,Urine Negative (Negative); Protein,Urine 1+ (Negative); RBC,Urine 48 /hpf (0-5); Specific Gravity,Urine 1.016 (1.001-1.035); Squamous Epithelial Cell,Urine 1 /hpf (0-4); WBC,Urine 11 /hpf (0-5)
[2022-11-11 02:54] LABS: Anisocytosis Moderate; Basophils % (A) 0 %; Eosinophils # (A) 0.1 k/uL (0-0.7); Eosinophils % (A) 0 %; HCT 26.8 % (39.0-53.0); HGB 8.1 gm/dL (13.0-17.5); Hypochromasia Marked; Lymphocytes # (A) 0.3 k/uL (1.0-4.8); Lymphocytes % (A) 2 %; MCH 29.8 pg (25.0-35.0); MCHC 30.2 g/dL (31.0-37.0); MCV 98.7 fL (80.0-100.0); Macrocytosis Moderate; Mean Platelet Volume 8.1; Monocytes # (A) 0.5 k/uL (0-1.0); Monocytes % (A) 3 %; Neutrophils # (A) 19.2 k/uL (1.3-7.7); Neutrophils % (A) 95 %; Platelet Count 338 k/uL (150-450); RBC 2.71 m/uL (4.30-5.90); RDW 21.2 % (11.5-15.5); WBC 20.3 k/uL (3.8-10.6)
[2022-11-11 03:16] LABS: African American GFR (CKD) 33 (>60 ml/min/1.73 sqM); Anion Gap 11 mmol/L; Calcium 7.6 mg/dL (8.4-10.2); Carbon Dioxide 16 mmol/L (22-30); Chloride 109 mmol/L (98-107); Glucose 159 mg/dL (74-99); Magnesium 2.1 mg/dL (1.6-2.3); Non-African American GFR(CKD) 29 (>60 ml/min/1.73 sqM); Potassium 4.9 mmol/L (3.5-5.1); Sodium 136 mmol/L (137-145)
[2022-11-11 03:43] LABS: Blood Urea Nitrogen 102 mg/dL (9-20)
[2022-11-11] MEDS: PIPERACILLIN-TAZOBACTAM 3.375 GM in SODIUM CHLORIDE 0.9% 100 ML IVPB SCH ×2 (04:30→17:49)
[2022-11-11 06:13] LABS: Glucose,Whole Blood 171 mg/dL (70-110)
[2022-11-11] MEDS: INSULIN ASPART (NovoLOG) 100 UNIT/ML VIAL SQ SCH ×3 (06:30→17:08)
[2022-11-11] MEDS ORDERED: INSULIN DETEMIR (LEVEMIR) 100 UNIT/ML SYR SQ SCH (07:00)
--- NOTE | 2022-11-11 08:35 | XR ---
EXAMINATION TYPE: XR chest 1V DATE OF EXAM: 11/11/2022 COMPARISON: 11/08/2022 HISTORY: 77-year-old male shortness of breath, A-Team TECHNIQUE: Single frontal view of the chest is obtained. FINDINGS: Low lung volumes. Heart borderline in size. Patchy retrocardiac and medial right basilar opacities ar e noted. Possible subtle pulmonary nodule lateral left midlung versus external artifact. No sizable p leural effusion. IMPRESSION: 1. Hypoventilatory changes but with developing patchy bibasilar opacities/infiltrates. 2. Possible subtle pulmonary nodule at the left midlung. Follow-up CT chest after successful treatmen t of patient's current condition to exclude underlying pulmonary nodules.
[2022-11-11] MEDS ORDERED: ACETAMINOPHEN IV (For NPO) 1,000 MG in EMPTY BAG 1 BAG IVPB PRN (09:27)
[2022-11-11] MEDS ORDERED: SODIUM CHLORIDE 0.9% 500 ML 500 ML IV ONE ×2 (09:29→10:25)
[2022-11-11] MEDS ORDERED: SODIUM CHLORIDE 0.9% 1,000 ML IV SCH (09:30)
[2022-11-11] MEDS: RANOLAZINE 500 MG TAB.ER.12H PO SCH (09:48)
[2022-11-11] MEDS: METOPROLOL SUCCINATE (ER) 25 MG TAB.ER.24H PO SCH (09:48)
[2022-11-11] MEDS: ISOSORBIDE MONONITRATE ER 30 MG TAB.ER.24H PO SCH (09:48)
[2022-11-11] MEDS: FAMOTIDINE 20 MG TAB PO SCH (09:48)
[2022-11-11] MEDS: TAMSULOSIN 0.4 MG CAP.ER.24H PO SCH (09:48)
[2022-11-11] MEDS: HEPARIN SODIUM,PORCINE/PF 5,000 UNIT/0.5 ML SYRINGE SQ SCH (10:30)
--- NOTE | 2022-11-11 10:49 | P.PN ---
Subjective Progress Note Date: 11/11/22 Principal diagnosis: Oliguria The patient underwent Baum catheter placement yesterday, but only a small amount of urine was retrieved. Bladder scan showed a large volume. I was suspicious that this represented ascites, so a bladder ultrasound was obtained which confirmed that the catheter was within the bladder and that the bladder was empty. Urine output overnight has been minimal. Objective - Vital Signs Vital signs: Vital Signs Temp 98.4 F 11/11/22 08:00 Pulse 97 11/11/22 10:19 Resp 22 11/11/22 10:19 BP 82/55 11/11/22 10:39 Pulse Ox 91 L 11/11/22 10:19 FiO2 21 11/09/22 08:40 Intake & Output 11/10/22 11/11/22 11/11/22 18:59 06:59 18:59 Intake Total 821 Output Total 52 Balance 821 -52 Intake: Oral 821 Output: Urine 50 Stool 2 Other: Voiding Method Indwelling Catheter Indwelling Catheter - Constitutional Constitutional Comment(s): General: Well-developed, well-nourished white male who appears weak. : Baum catheter intact. Draining small amount of urine, no hematuria. - Labs CBC & Chem 7: 11/11/22 02:37 11/11/22 02:37 Labs: Abnormal Lab Results - Last 24 Hours (Table) 11/10/22 11/10/22 11/10/22 Range/Units 06:26 06:26 12:49 WBC 21.00 H (4.50-10.00) X 10*3/uL RBC 2.91 L (4.40-5.60) X 10*6/uL Hgb 8.7 L (13.0-17.0) d/dL Hct 28.6 L (39.6-50.0) % MCV 98.3 H (80.0-97.0) FL MCHC 30.4 L (32.0-37.0) d/dL RDW 23.8 H (11.5-14.5) % Neutrophils # 19.21 H (1.80-7.70) X 10*3/uL Lymphocytes # 0.64 L (0.90-5.00) X 10*3/uL Monocytes # 1.01 H (0.20-1.00) X 10*3/uL Eosinophils # 0.01 L (0.04-0.35) X 10*3/uL Sodium (137-145) mmol/L Chloride (98-107) mmol/L Carbon Dioxide 20.5 L (21.6-31.8) mmol/L Anion Gap 13.50 H (4.00-12.00) mmol/L BUN 87.6 H (9.0-27.0) mg/dL Creatinine 1.9 H (0.6-1.5) mg/dL Est GFR (CKD-EPI) 35 L (>=60) BUN/Creatinine Ratio 46.11 H (12.00-20.00) Ratio Glucose 57 L (70-110) mg/dL POC Glucose (mg/dL) 119 H (70-110) mg/dL Plasma Lactic Acid Dominick (0.7-2.0) mmol/L Calcium (8.4-10.2) mg/dL Urine Protein (Negative) Urine Blood (Negative) Ur Leukocyte Esterase (Negative) Urine RBC (0-5) /hpf Urine WBC (0-5) /hpf Hyaline Casts (0-2) /lpf Urine Mucus (None) /hpf 11/10/22 11/10/22 11/10/22 Range/Units 14:28 15:16 16:23 WBC (4.50-10.00) X 10*3/uL RBC (4.40-5.60) X 10*6/uL Hgb (13.0-17.0) d/dL Hct (39.6-50.0) % MCV (80.0-97.0) FL MCHC (32.0-37.0) d/dL RDW (11.5-14.5) % Neutrophils # (1.80-7.70) X 10*3/uL Lymphocytes # (0.90-5.00) X 10*3/uL Monocytes # (0.20-1.00) X 10*3/uL Eosinophils # (0.04-0.35) X 10*3/uL Sodium (137-145) mmol/L Chloride (98-107) mmol/L Carbon Dioxide (21.6-31.8) mmol/L Anion Gap (4.00-12.00) mmol/L BUN (9.0-27.0) mg/dL Creatinine (0.6-1.5) mg/dL Est GFR (CKD-EPI) (>=60) BUN/Creatinine Ratio (12.00-20.00) Ratio Glucose (70-110) mg/dL POC Glucose (mg/dL) 126 H 118 H (70-110) mg/dL Plasma Lactic Acid Dominick 4.4 H* (0.7-2.0) mmol/L Calcium (8.4-10.2) mg/dL Urine Protein (Negative) Urine Blood (Negative) Ur Leukocyte Esterase (Negative) Urine RBC (0-5) /hpf Urine WBC (0-5) /hpf Hyaline Casts (0-2) /lpf Urine Mucus (None) /hpf 11/10/22 11/10/22 11/10/22 Range/Units 18:53 19:59 22:00 WBC (4.50-10.00) X 10*3/uL RBC (4.40-5.60) X 10*6/uL Hgb (13.0-17.0) d/dL Hct (39.6-50.0) % MCV (80.0-97.0) FL MCHC (32.0-37.0) d/dL RDW (11.5-14.5) % Neutrophils # (1.80-7.70) X 10*3/uL Lymphocytes # (0.90-5.00) X 10*3/uL Monocytes # (0.20-1.00) X 10*3/uL Eosinophils # (0.04-0.35) X 10*3/uL Sodium (137-145) mmol/L Chloride (98-107) mmol/L Carbon Dioxide (21.6-31.8) mmol/L Anion Gap (4.00-12.00) mmol/L BUN (9.0-27.0) mg/dL Creatinine (0.6-1.5) mg/dL Est GFR (CKD-EPI) (>=60) BUN/Creatinine Ratio (12.00-20.00) Ratio Glucose (70-110) mg/dL POC Glucose (mg/dL) 165 H (70-110) mg/dL Plasma Lactic Acid Dominick 3.5 H* (0.7-2.0) mmol/L Calcium (8.4-10.2) mg/dL Urine Protein 1+ H (Negative) Urine Blood Moderate H (Negative) Ur Leukocyte Esterase Small H (Negative) Urine RBC 48 H (0-5) /hpf Urine WBC 11 H (0-5) /hpf Hyaline Casts 4 H (0-2) /lpf Urine Mucus Rare H (None) /hpf 11/10/22 11/11/22 11/11/22 Range/Units 22:56 02:37 02:37 WBC 20.3 H (4.50-10.00) X 10*3/uL RBC 2.71 L (4.40-5.60) X 10*6/uL Hgb 8.1 L (13.0-17.0) d/dL Hct 26.8 L (39.6-50.0) % MCV (80.0-97.0) FL MCHC 30.2 L (32.0-37.0) d/dL RDW 21.2 H (11.5-14.5) % Neutrophils # 19.2 H (1.80-7.70) X 10*3/uL Lymphocytes # 0.3 L (0.90-5.00) X 10*3/uL Monocytes # (0.20-1.00) X 10*3/uL Eosinophils # (0.04-0.35) X 10*3/uL Sodium 136 L (137-145) mmol/L Chloride 109 H (98-107) mmol/L Carbon Dioxide 16 L (21.6-31.8) mmol/L Anion Gap (4.00-12.00) mmol/L BUN 102 H* (9.0-27.0) mg/dL Creatinine 2.12 H (0.6-1.5) mg/dL Est GFR (CKD-EPI) (>=60) BUN/Creatinine Ratio (12.00-20.00) Ratio Glucose 159 H (70-110) mg/dL POC Glucose (mg/dL) (70-110) mg/dL Plasma Lactic Acid Dominick 2.9 H* (0.7-2.0) mmol/L Calcium 7.6 L (8.4-10.2) mg/dL Urine Protein (Negative) Urine Blood (Negative) Ur Leukocyte Esterase (Negative) Urine RBC (0-5) /hpf Urine WBC (0-5) /hpf Hyaline Casts (0-2) /lpf Urine Mucus (None) /hpf 11/11/22 11/11/22 11/11/22 Range/Units 02:37 06:09 08:32 WBC (4.50-10.00) X 10*3/uL RBC (4.40-5.60) X 10*6/uL Hgb (13.0-17.0) d/dL Hct (39.6-50.0) % MCV (80.0-97.0) FL MCHC (32.0-37.0) d/dL RDW (11.5-14.5) % Neutrophils # (1.80-7.70) X 10*3/uL Lymphocytes # (0.90-5.00) X 10*3/uL Monocytes # (0.20-1.00) X 10*3/uL Eosinophils # (0.04-0.35) X 10*3/uL Sodium (137-145) mmol/L Chloride (98-107) mmol/L Carbon Dioxide (21.6-31.8) mmol/L Anion Gap (4.00-12.00) mmol/L BUN (9.0-27.0) mg/dL Creatinine (0.6-1.5) mg/dL Est GFR (CKD-EPI) (>=60) BUN/Creatinine Ratio (12.00-20.00) Ratio Glucose (70-110) mg/dL POC Glucose (mg/dL) 171 H (70-110) mg/dL Plasma Lactic Acid Dominick 2.3 H* 6.1 H* (0.7-2.0) mmol/L Calcium (8.4-10.2) mg/dL Urine Protein (Negative) Urine Blood (Negative) Ur Leukocyte Esterase (Negative) Urine RBC (0-5) /hpf Urine WBC (0-5) /hpf Hyaline Casts (0-2) /lpf Urine Mucus (None) /hpf - Imaging and Cardiology US - abdomen: report reviewed, image reviewed Assessment and Plan (1) Retention of urine, unspecified Current Visit: Yes Status: Acute Code(s): R33.9 - RETENTION OF URINE, UNSPECIFIED SNOMED Code(s): 964192713 (2) Oliguria Current Visit: Yes Status: Acute Code(s): R34 - ANURIA AND OLIGURIA SNOMED Code(s): 44464595 Plan: Remove Baum catheter if/when no longer medically needed. Note that Bladder Scan will be unreliable in assessing his bladder emptying. Please notify me if I can be of any further assistance.
[2022-11-11] MEDS ORDERED: HYDROPHILIC CREAM 180 GM TUBE TOPICAL SCH (11:15)
--- NOTE | 2022-11-11 11:16 | P.CONS ---
History of Present Illness - Reason for Consult Consult date: 11/11/22 wound care - History of Present Illness This is a 69-year-old patient who is a poor historian. Patient's past medical history significant for coronary artery disease, diabetes, hyperlipidemia, hypertension, and vascular disorder. She has a stage II pressure ulcer to the midline sacrum. The area has multiple small ulcerations Limited to skin breakdown with granulation noted to the wound bed. The wound edges are attached to the wound base the periwound does show erythema and excoriation. Review Of Systems: Constitutional: No fever, no chills, no night sweats. No weight change. No weakness, fatigue or lethargy. No daytime sleepiness. Integumentary:reports wounds, no lesions. No rash or pruritus. No unusual b ruising. No change in hair or nails. Physical exam: General Appearance: Alert, cooperative, no distress, appears stated age. Skin: See HPI all other Skin color, texture, tugor normal, no rashes or lesions. Neurologic: Alert oriented x3 Assessment: 1. Stage II pressure ulcer to sacrum 2. Diabetes with skin ulceration Plan: 1. Apply triad to the site daily and as needed. Turn patient every 2 hours. Thank you for the consultation any questions please contact the wound care center DNP note has been reviewed and discussed with Dr. Abrams and the impression and plan of care has been directed as dictated. Past Medical History Past Medical History: Coronary Artery Disease (CAD), Chest Pain / Angina, Diabetes Mellitus, Hyperlipidemia, Hypertension, Vascular Disorder Additional Past Medical History / Comment(s): Hx rectal bleeding, hemorrhoids, diverticulosis., poor circulation -pt states stent left leg., neuropathy of feet., wound on ball of right foot., hospitalization 04/21/22 -04/30/22 for chest pain & anemia-egd and colonoscopy (gastritis & diverticulosis)., & received blood transfusions.,slight blockage carotid arteries.,. *See Cardiology H & P. History of Any Multi-Drug Resistant Organisms: None Reported Past Surgical History: Heart Catheterization, Heart Catheterization With Stent Additional Past Surgical History / Comment(s): *SEE CARDIOLOGY H&P. Hemorrhoidectomy about 40 years ago, colonoscopy, egd, skin cancer., stent left leg, varicose veins removed, heart cath aborted due to low hgb., debridement right foot callus. EGD/colonoscopy last admission negative for any type of bleed per patient Past Anesthesia/Blood Transfusion Reactions: No Reported Reaction Additional Past Anesthesia/Blood Transfusion Reaction / Comm: Pt had no reaction to blood transfusions and has had multiple in the past. Date of Last Stent Placement:: UNK Past Psychological History: No Psychological Hx Reported Smoking Status: Former smoker Past Alcohol Use History: Occasional Additional Past Alcohol Use History / Comment(s): Smoked for 50 years, quit 10 years ago per patient. Past Drug Use History: None Reported - Past Family History Father Family Medical History: Cancer Mother Family Medical History: Cancer Medications and Allergies Home Medications Medication Instructions Recorded Confirmed Type Atorvastatin [Lipitor] 40 mg PO HS 08/12/20 11/02/22 History lisinopriL [Zestril] 5 mg PO DAILY 08/12/20 11/02/22 History Multivit-Min/FA/Lycopen/Lutein 1 tab PO DAILY 04/08/22 11/02/22 History [Centrum Silver Men Tablet] Nitroglycerin Sl Tabs [Nitrostat] 0.4 mg SUBLINGUAL Q5M PRN 04/08/22 11/02/22 History Isosorbide Mononitrate ER [Imdur] 30 mg PO DAILY 30 Days #30 tab 04/11/2210/16 Rx Metoprolol Succinate (ER) [Toprol 25 mg PO DAILY 30 Days #30 tab 04/11/22 11/02/22 Rx XL] Ranolazine [Ranexa] 500 mg PO Q12HR 30 Days #60 tab 04/11/22 11/02/22 Rx Aspirin [Adult Low Dose Aspirin EC] 81 mg PO DAILY 05/21/22 11/02/22 History Clopidogrel [Plavix] 75 mg PO DAILY #90 tab 06/01/22 11/02/22 Rx Cholecalciferol [Vitamin D3 (25 25 mcg PO DAILY 11/02/22 11/02/22 History Mcg = 1000 Iu)] Famotidine 40 mg PO BID 11/02/22 11/02/22 History Allergies Allergy/AdvReac Type Severity Reaction Status Date / Time No Known Allergies Allergy Verified 11/02/22 22:48 Physical Exam Vitals: Vital Signs Temp Pulse Resp BP BP BP Pulse Ox 11/11/22 11:06 90/39 11/11/22 10:39 82/55 07/27/23 10:19 97 22 78/43 91 L 11/11/22 08:00 98.4 F 99 21 94/48 92 L 11/11/22 07:54 91 L 11/11/22 04:00 97.6 F 94 26 H 90/50 100 11/11/22 02:00 97 26 H 11/11/22 00:00 97 26 H 87/55 100 11/10/22 20:00 97.9 F 94 28 H 107/55 93 L 11/10/22 17:37 97.4 F L 98 18 105/68 97 11/10/22 14:45 93/61 98 11/10/22 14:30 16 83/53 72 L 11/10/22 14:19 14 63/43 75 L 11/10/22 14:15 14 56/41 60/43 47 L 11/10/22 14:00 20 Intake and Output 11/10/22 11/11/22 11/11/22 22:59 06:59 14:59 Intake Total 110 Output Total 21 31 Balance 89 -31 Intake: Oral 110 Output: Urine 20 30 Stool 1 1 Other: Voiding Method Indwelling Catheter Indwelling Catheter Results CBC & Chem 7: 11/11/22 02:37 11/11/22 02:37 Labs: Abnormal Lab Results - Last 24 Hours (Table) 11/10/22 11/10/22 11/10/22 Range/Units 06:26 12:49 14:28 WBC (3.8-10.6) k/uL RBC (4.30-5.90) m/uL Hgb (13.0-17.5) gm/dL Hct (39.0-53.0) % MCHC (31.0-37.0) g/dL RDW (11.5-15.5) % Neutrophils # (1.3-7.7) k/uL Lymphocytes # (1.0-4.8) k/uL Sodium (137-145) mmol/L Chloride (98-107) mmol/L Carbon Dioxide 20.5 L (21.6-31.8) mmol/L Anion Gap 13.50 H (4.00-12.00) mmol/L BUN 87.6 H (9.0-27.0) mg/dL Creatinine 1.9 H (0.6-1.5) mg/dL Est GFR (CKD-EPI) 35 L (>=60) BUN/Creatinine Ratio 46.11 H (12.00-20.00) Ratio Glucose 57 L (70-110) mg/dL POC Glucose (mg/dL) 119 H 126 H (70-110) mg/dL Plasma Lactic Acid Dominick (0.7-2.0) mmol/L Calcium (8.4-10.2) mg/dL Urine Protein (Negative) Urine Blood (Negative) Ur Leukocyte Esterase (Negative) Urine RBC (0-5) /hpf Urine WBC (0-5) /hpf Hyaline Casts (0-2) /lpf Urine Mucus (None) /hpf 11/10/22 11/10/22 11/10/22 Range/Units 15:16 16:23 18:53 WBC (3.8-10.6) k/uL RBC (4.30-5.90) m/uL Hgb (13.0-17.5) gm/dL Hct (39.0-53.0) % MCHC (31.0-37.0) g/dL RDW (11.5-15.5) % Neutrophils # (1.3-7.7) k/uL Lymphocytes # (1.0-4.8) k/uL Sodium (137-145) mmol/L Chloride (98-107) mmol/L Carbon Dioxide (21.6-31.8) mmol/L Anion Gap (4.00-12.00) mmol/L BUN (9.0-27.0) mg/dL Creatinine (0.6-1.5) mg/dL Est GFR (CKD-EPI) (>=60) BUN/Creatinine Ratio (12.00-20.00) Ratio Glucose (70-110) mg/dL POC Glucose (mg/dL) 118 H (70-110) mg/dL Plasma Lactic Acid Dominick 4.4 H* 3.5 H* (0.7-2.0) mmol/L Calcium (8.4-10.2) mg/dL Urine Protein (Negative) Urine Blood (Negative) Ur Leukocyte Esterase (Negative) Urine RBC (0-5) /hpf Urine WBC (0-5) /hpf Hyaline Casts (0-2) /lpf Urine Mucus (None) /hpf 11/10/22 11/10/22 11/10/22 Range/Units 19:59 22:00 22:56 WBC (3.8-10.6) k/uL RBC (4.30-5.90) m/uL Hgb (13.0-17.5) gm/dL Hct (39.0-53.0) % MCHC (31.0-37.0) g/dL RDW (11.5-15.5) % Neutrophils # (1.3-7.7) k/uL Lymphocytes # (1.0-4.8) k/uL Sodium (137-145) mmol/L Chloride (98-107) mmol/L Carbon Dioxide (21.6-31.8) mmol/L Anion Gap (4.00-12.00) mmol/L BUN (9.0-27.0) mg/dL Creatinine (0.6-1.5) mg/dL Est GFR (CKD-EPI) (>=60) BUN/Creatinine Ratio (12.00-20.00) Ratio Glucose (70-110) mg/dL POC Glucose (mg/dL) 165 H (70-110) mg/dL Plasma Lactic Acid Dominick 2.9 H* (0.7-2.0) mmol/L Calcium (8.4-10.2) mg/dL Urine Protein 1+ H (Negative) Urine Blood Moderate H (Negative) Ur Leukocyte Esterase Small H (Negative) Urine RBC 48 H (0-5) /hpf Urine WBC 11 H (0-5) /hpf Hyaline Casts 4 H (0-2) /lpf Urine Mucus Rare H (None) /hpf 11/11/22 11/11/22 11/11/22 Range/Units 02:37 02:37 02:37 WBC 20.3 H (3.8-10.6) k/uL RBC 2.71 L (4.30-5.90) m/uL Hgb 8.1 L (13.0-17.5) gm/dL Hct 26.8 L (39.0-53.0) % MCHC 30.2 L (31.0-37.0) g/dL RDW 21.2 H (11.5-15.5) % Neutrophils # 19.2 H (1.3-7.7) k/uL Lymphocytes # 0.3 L (1.0-4.8) k/uL Sodium 136 L (137-145) mmol/L Chloride 109 H (98-107) mmol/L Carbon Dioxide 16 L (21.6-31.8) mmol/L Anion Gap (4.00-12.00) mmol/L BUN 102 H* (9.0-27.0) mg/dL Creatinine 2.12 H (0.6-1.5) mg/dL Est GFR (CKD-EPI) (>=60) BUN/Creatinine Ratio (12.00-20.00) Ratio Glucose 159 H (70-110) mg/dL POC Glucose (mg/dL) (70-110) mg/dL Plasma Lactic Acid Dominick 2.3 H* (0.7-2.0) mmol/L Calcium 7.6 L (8.4-10.2) mg/dL Urine Protein (Negative) Urine Blood (Negative) Ur Leukocyte Esterase (Negative) Urine RBC (0-5) /hpf Urine WBC (0-5) /hpf Hyaline Casts (0-2) /lpf Urine Mucus (None) /hpf 11/11/22 11/11/22 Range/Units 06:09 08:32 WBC (3.8-10.6) k/uL RBC (4.30-5.90) m/uL Hgb (13.0-17.5) gm/dL Hct (39.0-53.0) % MCHC (31.0-37.0) g/dL RDW (11.5-15.5) % Neutrophils # (1.3-7.7) k/uL Lymphocytes # (1.0-4.8) k/uL Sodium (137-145) mmol/L Chloride (98-107) mmol/L Carbon Dioxide (21.6-31.8) mmol/L Anion Gap (4.00-12.00) mmol/L BUN (9.0-27.0) mg/dL Creatinine (0.6-1.5) mg/dL Est GFR (CKD-EPI) (>=60) BUN/Creatinine Ratio (12.00-20.00) Ratio Glucose (70-110) mg/dL POC Glucose (mg/dL) 171 H (70-110) mg/dL Plasma Lactic Acid Dominick 6.1 H* (0.7-2.0) mmol/L Calcium (8.4-10.2) mg/dL Urine Protein (Negative) Urine Blood (Negative) Ur Leukocyte Esterase (Negative) Urine RBC (0-5) /hpf Urine WBC (0-5) /hpf Hyaline Casts (0-2) /lpf Urine Mucus (None) /hpf Assessment and Plan (1) Stage II pressure ulcer of sacral region Current Visit: Yes Status: Acute Code(s): L89.152 - PRESSURE ULCER OF SACRAL REGION, STAGE 2 SNOMED Code(s): 93816215359207 (2) Type 2 diabetes mellitus with other skin ulcer Current Visit: Yes Status: Acute Code(s): E11.622 - TYPE 2 DIABETES MELLITUS WITH OTHER SKIN ULCER; L98.499 - NON-PRESSURE CHRONIC ULCER OF SKIN OF SITES W UNSP SEVERITY SNOMED Code(s): 625634580
[2022-11-11 11:28] LABS: Glucose,Whole Blood 140 mg/dL (70-110)
--- NOTE | 2022-11-11 12:10 | P.PN ---
Subjective Progress Note Date: 11/11/22 Principal diagnosis: weakness, anemia At today's visit patient is more somnolent. During exam and questions patient kept falling asleep. repeat CXR revealed developing patchy bibasilar opacities/infiltrates. He continues on Zosyn. SpO2 915 on 15L high flow. BP soft, receiving fluid bolus. Lactic acid 6.1 Objective - Vital Signs Vital signs: Vital Signs Temp 98.4 F 11/11/22 08:00 Pulse 97 11/11/22 10:19 Resp 22 11/11/22 10:19 BP 90/39 11/11/22 11:06 Pulse Ox 91 L 11/11/22 10:19 FiO2 21 11/09/22 08:40 Intake & Output 11/10/22 11/11/22 11/11/22 18:59 06:59 18:59 Intake Total 821 Output Total 52 Balance 821 -52 Intake: Oral 821 Output: Urine 50 Stool 2 Other: Voiding Method Indwelling Catheter Indwelling Catheter - Constitutional General appearance: Present: average body habitus, no acute distress - EENT Eyes: Present: anicteric sclerae - Respiratory Details: breathing labored - Cardiovascular Details: skin warm and dry - Neurologic Neurologic Comment(s): somnolent, generalized weakness - Musculoskeletal Musculoskeletal: Present: generalized weakness - Labs CBC & Chem 7: 11/11/22 02:37 11/11/22 02:37 Labs: Abnormal Lab Results - Last 24 Hours (Table) 11/10/22 11/10/22 11/10/22 Range/Units 06:26 12:49 14:28 WBC (3.8-10.6) k/uL RBC (4.30-5.90) m/uL Hgb (13.0-17.5) gm/dL Hct (39.0-53.0) % MCHC (31.0-37.0) g/dL RDW (11.5-15.5) % Neutrophils # (1.3-7.7) k/uL Lymphocytes # (1.0-4.8) k/uL Sodium (137-145) mmol/L Chloride (98-107) mmol/L Carbon Dioxide 20.5 L (21.6-31.8) mmol/L Anion Gap 13.50 H (4.00-12.00) mmol/L BUN 87.6 H (9.0-27.0) mg/dL Creatinine 1.9 H (0.6-1.5) mg/dL Est GFR (CKD-EPI) 35 L (>=60) BUN/Creatinine Ratio 46.11 H (12.00-20.00) Ratio Glucose 57 L (70-110) mg/dL POC Glucose (mg/dL) 119 H 126 H (70-110) mg/dL Plasma Lactic Acid Dominick (0.7-2.0) mmol/L Calcium (8.4-10.2) mg/dL Urine Protein (Negative) Urine Blood (Negative) Ur Leukocyte Esterase (Negative) Urine RBC (0-5) /hpf Urine WBC (0-5) /hpf Hyaline Casts (0-2) /lpf Urine Mucus (None) /hpf 11/10/22 11/10/22 11/10/22 Range/Units 15:16 16:23 18:53 WBC (3.8-10.6) k/uL RBC (4.30-5.90) m/uL Hgb (13.0-17.5) gm/dL Hct (39.0-53.0) % MCHC (31.0-37.0) g/dL RDW (11.5-15.5) % Neutrophils # (1.3-7.7) k/uL Lymphocytes # (1.0-4.8) k/uL Sodium (137-145) mmol/L Chloride (98-107) mmol/L Carbon Dioxide (21.6-31.8) mmol/L Anion Gap (4.00-12.00) mmol/L BUN (9.0-27.0) mg/dL Creatinine (0.6-1.5) mg/dL Est GFR (CKD-EPI) (>=60) BUN/Creatinine Ratio (12.00-20.00) Ratio Glucose (70-110) mg/dL POC Glucose (mg/dL) 118 H (70-110) mg/dL Plasma Lactic Acid Dominick 4.4 H* 3.5 H* (0.7-2.0) mmol/L Calcium (8.4-10.2) mg/dL Urine Protein (Negative) Urine Blood (Negative) Ur Leukocyte Esterase (Negative) Urine RBC (0-5) /hpf Urine WBC (0-5) /hpf Hyaline Casts (0-2) /lpf Urine Mucus (None) /hpf 11/10/22 11/10/22 11/10/22 Range/Units 19:59 22:00 22:56 WBC (3.8-10.6) k/uL RBC (4.30-5.90) m/uL Hgb (13.0-17.5) gm/dL Hct (39.0-53.0) % MCHC (31.0-37.0) g/dL RDW (11.5-15.5) % Neutrophils # (1.3-7.7) k/uL Lymphocytes # (1.0-4.8) k/uL Sodium (137-145) mmol/L Chloride (98-107) mmol/L Carbon Dioxide (21.6-31.8) mmol/L Anion Gap (4.00-12.00) mmol/L BUN (9.0-27.0) mg/dL Creatinine (0.6-1.5) mg/dL Est GFR (CKD-EPI) (>=60) BUN/Creatinine Ratio (12.00-20.00) Ratio Glucose (70-110) mg/dL POC Glucose (mg/dL) 165 H (70-110) mg/dL Plasma Lactic Acid Dominick 2.9 H* (0.7-2.0) mmol/L Calcium (8.4-10.2) mg/dL Urine Protein 1+ H (Negative) Urine Blood Moderate H (Negative) Ur Leukocyte Esterase Small H (Negative) Urine RBC 48 H (0-5) /hpf Urine WBC 11 H (0-5) /hpf Hyaline Casts 4 H (0-2) /lpf Urine Mucus Rare H (None) /hpf 11/11/22 11/11/22 11/11/22 Range/Units 02:37 02:37 02:37 WBC 20.3 H (3.8-10.6) k/uL RBC 2.71 L (4.30-5.90) m/uL Hgb 8.1 L (13.0-17.5) gm/dL Hct 26.8 L (39.0-53.0) % MCHC 30.2 L (31.0-37.0) g/dL RDW 21.2 H (11.5-15.5) % Neutrophils # 19.2 H (1.3-7.7) k/uL Lymphocytes # 0.3 L (1.0-4.8) k/uL Sodium 136 L (137-145) mmol/L Chloride 109 H (98-107) mmol/L Carbon Dioxide 16 L (21.6-31.8) mmol/L Anion Gap (4.00-12.00) mmol/L BUN 102 H* (9.0-27.0) mg/dL Creatinine 2.12 H (0.6-1.5) mg/dL Est GFR (CKD-EPI) (>=60) BUN/Creatinine Ratio (12.00-20.00) Ratio Glucose 159 H (70-110) mg/dL POC Glucose (mg/dL) (70-110) mg/dL Plasma Lactic Acid Dominick 2.3 H* (0.7-2.0) mmol/L Calcium 7.6 L (8.4-10.2) mg/dL Urine Protein (Negative) Urine Blood (Negative) Ur Leukocyte Esterase (Negative) Urine RBC (0-5) /hpf Urine WBC (0-5) /hpf Hyaline Casts (0-2) /lpf Urine Mucus (None) /hpf 11/11/22 11/11/22 11/11/22 Range/Units 06:09 08:32 11:26 WBC (3.8-10.6) k/uL RBC (4.30-5.90) m/uL Hgb (13.0-17.5) gm/dL Hct (39.0-53.0) % MCHC (31.0-37.0) g/dL RDW (11.5-15.5) % Neutrophils # (1.3-7.7) k/uL Lymphocytes # (1.0-4.8) k/uL Sodium (137-145) mmol/L Chloride (98-107) mmol/L Carbon Dioxide (21.6-31.8) mmol/L Anion Gap (4.00-12.00) mmol/L BUN (9.0-27.0) mg/dL Creatinine (0.6-1.5) mg/dL Est GFR (CKD-EPI) (>=60) BUN/Creatinine Ratio (12.00-20.00) Ratio Glucose (70-110) mg/dL POC Glucose (mg/dL) 171 H 140 H (70-110) mg/dL Plasma Lactic Acid Dominick 6.1 H* (0.7-2.0) mmol/L Calcium (8.4-10.2) mg/dL Urine Protein (Negative) Urine Blood (Negative) Ur Leukocyte Esterase (Negative) Urine RBC (0-5) /hpf Urine WBC (0-5) /hpf Hyaline Casts (0-2) /lpf Urine Mucus (None) /hpf - Imaging and Cardiology Chest x-ray: report reviewed Assessment and Plan (1) Liver mass Current Visit: Yes Status: Acute Priority: High Code(s): R16.0 - HEPATOMEGALY, NOT ELSEWHERE CLASSIFIED SNOMED Code(s): 108680605 (2) Anemia Current Visit: Yes Status: Acute Priority: High Code(s): D64.9 - ANEMIA, UNSPECIFIED SNOMED Code(s): 689768558 Plan: Liver mass, LAD -CT AP 10/05 which noted multiple liver masses, largest measuring 10.6 cm, some intra-abdominal lymphadenopathy, rt cervical LAD, nodular thickening of the left adrenal gland, and bilateral pulmonary nodules concerning for metastatic malignancy. PET/CT 10/29/22 revealed findings compatible with suspected primary hepatic malignancy with metastatic disease -CT guided core biopsy of the rt cervical lymph completed. Path pending -Aspirin and Plavix per Cardiology recommendations can be resumed after biopsy and it is felt that adequate hemostasis has been achieved per Radiologist performing procedure -F/u scheduled with Dr. Donald Edouard for 11/18 for biopsy results and plan of care, pending course of hospitalization Anemia -History of the same. EGD and colonoscopy April 2022. -Multifactorial including iron deficiency from poor diet, now suspect a GI malignancy. -Patient has been receiving parenteral iron. He Received 3 doses while inpatient. He has also been transfused with 2 units of packed red blood cells. Hemoglobin is 9 today. -B12 deficiency. Patient has been receiving B12 injections monthly. He is due, 1 dose ordered for today -Hemoglobin stable today at 8.1 -Transfuse for hemoglobin less than 8 due to patient's cardiac symptoms. Pneumonia: -Repeat CXR revealed developing patchy bibasilar opacities/infiltrates. He continues on Zosyn. SpO2 91% on 15L high flow. -Lactic acid 6.1 today. Blood and urine cultures pending. BP soft, receiving fluid bolus -ID consulted attests: I performed H&P and developed impression and plan of care for patient, discussed with dictator. I agree with dictated note, documented as a scribe
[2022-11-11] MEDS ORDERED: SODIUM CHLORIDE 0.9% 1,000 ML IV ONE (12:38)
[2022-11-11] MEDS ORDERED: IOPAMIDOL CONTRAST (ORAL USE) VIAL PO PRN (12:41)
--- NOTE | 2022-11-11 12:54 | P.PN ---
Subjective Patient is seen in follow-up for acute kidney injury. Renal function worse. Urine output 50 mL overnight. Resting in bed. Lethargic. Blood pressure low this morning. Received 1 L of normal saline bolus and is receiving normal saline at 75 mL an hour for maintenance fluids. Has Baum catheter. Vital signs - blood pressure low. General: No acute distress. Resting in bed. HEENT: Head exam is unremarkable. On nasal cannula. LUNGS: Scattered rhonchi. HEART: Rate and Rhythm are regular. ABDOMEN: Soft, nontender. EXTREMITITES: No edema. Objective - Vital Signs Vital signs: Vital Signs Temp 98.4 F 11/11/22 08:00 Pulse 97 11/11/22 10:19 Resp 22 11/11/22 10:19 BP 79/42 11/11/22 12:38 Pulse Ox 91 L 11/11/22 10:19 FiO2 21 11/09/22 08:40 Intake & Output 11/10/22 11/11/22 11/11/22 18:59 06:59 18:59 Intake Total 821 Output Total 52 Balance 821 -52 Intake: Oral 821 Output: Urine 50 Stool 2 Other: Voiding Method Indwelling Catheter Indwelling Catheter - Labs CBC & Chem 7: 11/11/22 02:37 11/11/22 02:37 Labs: Abnormal Lab Results - Last 24 Hours (Table) 11/10/22 11/10/22 11/10/22 Range/Units 12:49 14:28 15:16 WBC (3.8-10.6) k/uL RBC (4.30-5.90) m/uL Hgb (13.0-17.5) gm/dL Hct (39.0-53.0) % MCHC (31.0-37.0) g/dL RDW (11.5-15.5) % Neutrophils # (1.3-7.7) k/uL Lymphocytes # (1.0-4.8) k/uL Sodium (137-145) mmol/L Chloride (98-107) mmol/L Carbon Dioxide (22-30) mmol/L BUN (9-20) mg/dL Creatinine (0.66-1.25) mg/dL Glucose (74-99) mg/dL POC Glucose (mg/dL) 119 H 126 H (70-110) mg/dL Plasma Lactic Acid Dominick 4.4 H* (0.7-2.0) mmol/L Calcium (8.4-10.2) mg/dL Urine Protein (Negative) Urine Blood (Negative) Ur Leukocyte Esterase (Negative) Urine RBC (0-5) /hpf Urine WBC (0-5) /hpf Hyaline Casts (0-2) /lpf Urine Mucus (None) /hpf 11/10/22 11/10/22 11/10/22 Range/Units 16:23 18:53 19:59 WBC (3.8-10.6) k/uL RBC (4.30-5.90) m/uL Hgb (13.0-17.5) gm/dL Hct (39.0-53.0) % MCHC (31.0-37.0) g/dL RDW (11.5-15.5) % Neutrophils # (1.3-7.7) k/uL Lymphocytes # (1.0-4.8) k/uL Sodium (137-145) mmol/L Chloride (98-107) mmol/L Carbon Dioxide (22-30) mmol/L BUN (9-20) mg/dL Creatinine (0.66-1.25) mg/dL Glucose (74-99) mg/dL POC Glucose (mg/dL) 118 H 165 H (70-110) mg/dL Plasma Lactic Acid Dominick 3.5 H* (0.7-2.0) mmol/L Calcium (8.4-10.2) mg/dL Urine Protein (Negative) Urine Blood (Negative) Ur Leukocyte Esterase (Negative) Urine RBC (0-5) /hpf Urine WBC (0-5) /hpf Hyaline Casts (0-2) /lpf Urine Mucus (None) /hpf 11/10/22 11/10/22 11/11/22 Range/Units 22:00 22:56 02:37 WBC 20.3 H (3.8-10.6) k/uL RBC 2.71 L (4.30-5.90) m/uL Hgb 8.1 L (13.0-17.5) gm/dL Hct 26.8 L (39.0-53.0) % MCHC 30.2 L (31.0-37.0) g/dL RDW 21.2 H (11.5-15.5) % Neutrophils # 19.2 H (1.3-7.7) k/uL Lymphocytes # 0.3 L (1.0-4.8) k/uL Sodium (137-145) mmol/L Chloride (98-107) mmol/L Carbon Dioxide (22-30) mmol/L BUN (9-20) mg/dL Creatinine (0.66-1.25) mg/dL Glucose (74-99) mg/dL POC Glucose (mg/dL) (70-110) mg/dL Plasma Lactic Acid Dominick 2.9 H* (0.7-2.0) mmol/L Calcium (8.4-10.2) mg/dL Urine Protein 1+ H (Negative) Urine Blood Moderate H (Negative) Ur Leukocyte Esterase Small H (Negative) Urine RBC 48 H (0-5) /hpf Urine WBC 11 H (0-5) /hpf Hyaline Casts 4 H (0-2) /lpf Urine Mucus Rare H (None) /hpf 11/11/22 11/11/22 11/11/22 Range/Units 02:37 02:37 06:09 WBC (3.8-10.6) k/uL RBC (4.30-5.90) m/uL Hgb (13.0-17.5) gm/dL Hct (39.0-53.0) % MCHC (31.0-37.0) g/dL RDW (11.5-15.5) % Neutrophils # (1.3-7.7) k/uL Lymphocytes # (1.0-4.8) k/uL Sodium 136 L (137-145) mmol/L Chloride 109 H (98-107) mmol/L Carbon Dioxide 16 L (22-30) mmol/L BUN 102 H* (9-20) mg/dL Creatinine 2.12 H (0.66-1.25) mg/dL Glucose 159 H (74-99) mg/dL POC Glucose (mg/dL) 171 H (70-110) mg/dL Plasma Lactic Acid Dominick 2.3 H* (0.7-2.0) mmol/L Calcium 7.6 L (8.4-10.2) mg/dL Urine Protein (Negative) Urine Blood (Negative) Ur Leukocyte Esterase (Negative) Urine RBC (0-5) /hpf Urine WBC (0-5) /hpf Hyaline Casts (0-2) /lpf Urine Mucus (None) /hpf 11/11/22 11/11/22 Range/Units 08:32 11:26 WBC (3.8-10.6) k/uL RBC (4.30-5.90) m/uL Hgb (13.0-17.5) gm/dL Hct (39.0-53.0) % MCHC (31.0-37.0) g/dL RDW (11.5-15.5) % Neutrophils # (1.3-7.7) k/uL Lymphocytes # (1.0-4.8) k/uL Sodium (137-145) mmol/L Chloride (98-107) mmol/L Carbon Dioxide (22-30) mmol/L BUN (9-20) mg/dL Creatinine (0.66-1.25) mg/dL Glucose (74-99) mg/dL POC Glucose (mg/dL) 140 H (70-110) mg/dL Plasma Lactic Acid Dominick 6.1 H* (0.7-2.0) mmol/L Calcium (8.4-10.2) mg/dL Urine Protein (Negative) Urine Blood (Negative) Ur Leukocyte Esterase (Negative) Urine RBC (0-5) /hpf Urine WBC (0-5) /hpf Hyaline Casts (0-2) /lpf Urine Mucus (None) /hpf Assessment and Plan Plan: Assessment: 1. Acute kidney injury secondary to ischemic ATN secondary to hypotension and acute anemia. Creatinine peaked at 2.1 this admission and is stable at 2.12 today. Nonoliguric oliguric from hypotension. UA fairly benign. No hydronephrosis noted on kidney ultrasound. 2. Multiple liver masses with intra-abdominal lymphadenopathy, thickened left adrenal gland and pulmonary nodules concerning for metastatic malignancy. Being followed by oncology. Lymph node biopsy done. 3. Acute blood loss anemia status post blood transfusion this admission. High ferritin noted. Hematology following. Hemoglobin 8.1 today. 4. Hyperkalemia. Hemolyzed sample. Repeat potassium levels have been normal. 5. Diabetes mellitus. 6. Coronary artery disease with history of cardiac stenting. 7. Moderate aortic stenosis. 8. Urinary retention. On Flomax. Has Baum catheter. 9. Metabolic acidosis secondary to acute kidney injury and IV fluids. Plan: Change IV fluids to bicarbonate drip. Give additional 1 L of normal saline bolus. If no improvement in hemodynamic status, will need to be transferred to ICU for vasopressor support. Encourage oral intake. Avoid nephrotoxins. Continue to monitor renal function and urine output. Maintain Baum catheter. Add midodrine. Prognosis guarded.
[2022-11-11] MEDS ORDERED: DEXTROSE 5% IN WATER 1,000 ML with SODIUM BICARB (1 MEQ/ML) 150 ML IV SCH (13:00)
--- NOTE | 2022-11-11 15:04 | P.PN ---
Subjective Progress Note Date: 11/11/22 This is a pleasant 77 year old male admitted for symptomatic anemia, hemoglobin is stable today at 8.7 patient has received total 2 units of PRBC. Patient complaining of constipation today and abdomen is distended, he was able to have a bowel movement. Creatinine has increased to 2.1 from 1.3 today and at beside concerned with his mentation. Patient noted to have urinary retention with bladder scan showing 645 mLs. Renal ultrasound showing small ascites no evidence of bladder distention or hydronephrosis. Neurology has signed off. Patient is scheduled for outpatient cervical lymph node and liver biopsy. 11/09/2022 Patient is evaluated today resting in bed. More fatigued than yesterday. Patient is noted to have urinary retention and wild catheter has been placed. Blood pressure on the lower side today high 80s systolic additionally patient is found to have proBNP of 5000. Patient received 250 cc fluid bolus and has been started on maintenance fluid 50 cc per hour. Not ready for discharge today. White count up to 24.9, hemoglobin stable at 9.0. 11/10/2022 Patient evaluated today overall reports feeling better than yesterday. He is more awake and alert. Lymph biopsy results pending. Per family the liver biopsy was to be done outpatient thru [facility]. Plavix has been held for this need to discuss and confirm with care team regarding the biopsy so plavix and aspirin can be resumed as soon as possible. Blood glucose is improving insulin will be decreased to avoid hypoglycemia. White count remains elevated patient will be started on empiric antibiotics. Nephrology following closely. 11/11/2022 Patient evaluated today on the stepdown unit he was upgraded from the general medical floor yesterday afternoon. Patient had reported increased abdominal pain with episode of nausea and vomiting after eating lunch yesterday and was also found to have increased abdominal distention and blood pressure in the 60s systolic. An [facility] was called and patient found to have a possible bowel obstruction on abdominal imaging was given fluid bolus and sepsis work up started. Lactic acid was 4.4 had improved some and now up to 6.1. Patient is on empiric antibiotics and infectious disease is consulted for the sepsis. Patient has had about 50 mls of urine output overnight. Today blood pressure again low and 2L fluid bolus given discussed with Crib Clerk and patient will be moved to the ICU for vasopressor support. Pathology from the lymph biopsy is pending. Remains off aspirin and plavix for a tentative liver biopsy on 11/15/22. Labs today reveal white count of 20.3, hgb 8.1, sodium 136, potassium 4.9, BUN 102, creatinine 2.12, lactic acid 6.1. Oncology following, urology following, general surgery following, nephrology following. Prognosis remains guarded this was discussed in extent with family and patient at the bedside. Review of Systems Constitutional: Reports fatigue, denied any fever. Cardio vascular: denied any chest pain, palpitations Gastrointestinal: Denies nausea vomiting today, had a BM yesterday, reports abdominal pain. Pulmonary: Denied any shortness of breath cough Neurologic denied any new focal deficits Reports weakness. All inpatient medications were reviewed and appropriate changes in these medications as dictated in the interval history and assessment and plan. PHYSICAL EXAMINATION: GENERAL: The patient is alert and oriented x2-3, not in any acute distress. Well developed, well nourished. HEENT: Pupils are round and equally reacting to light. EOMI. No scleral icterus. No conjunctival pallor. Normocephalic, atraumatic. No pharyngeal erythema. No thyromegaly. CARDIOVASCULAR: S1 and S2 present. No murmurs, rubs, or gallops. PULMONARY: Chest is clear to auscultation, no wheezing or crackles. Chest is diminished ABDOMEN: Soft, nontender, mildly distended, tympanic, normoactive bowel sounds. No palpable organomegaly. MUSCULOSKELETAL: No joint swelling or deformity. EXTREMITIES: No cyanosis, clubbing, Mild ankle edema. NEUROLOGICAL: Gross neurological examination did not reveal any focal deficits. Diffuse generalized weakness. SKIN: No rashes. 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 suspicious for a GI primary malignancy. -Acute hypoxic respiratory failure likely due to pneumonitis possibly aspiration -Septic shock source of infection under investigation -Acute metabolic encephalopathy secondary to RAOUL -Acute kidney injury secondary to Acute tubular necrosis and sepsis -Urinary retention requiring indwelling urinary catheter -Anemia, acute blood loss, with underlying iron deficiency, symptomatic with hemoglobin 8.1 has received 2 units of PRBC this admission. -Angina at rest -Coronary artery disease with prior cardiac stenting -Hx moderate aortic stenosis -Diabetes mellitus GI prophylaxis No Code Plan Nephrology consultation recommending IV bicarbonate and additional fluid bolus Avoid constipation Flomax added and continue with indwelling catheter, urology on consultation Lymph node biopsy pending Outpatient liver biopsy plavix currently being held. Confirm biopsy date resume plavix and aspirin as soon as possible Patient has been started on empiric antibiotics and septic work up initiated, ID consulted Oncology following recommending blood transfusion for hemoglobin less than 8 Continue with indwelling catheter strict intake and output monitoring Crib Clerk consulted patient will be moved to the ICU for vasopressor support pending bed placement. General surgery consultation patient will undergo CT imaging today. Repeat labs in AM Overall prognosis remains guarded, long discussion with family at the bedside will re-evaluate clinical status tomorrow The impression and plan of care has been dictated by Nurse Bandar Morales ctitioner as directed. Dr. Kierra MD I have performed a history and physical examination and medical decision making of this patient, discussed the same with the dictator, and agree with the dictat ors assessment and plan as written, documented as a scribe. Based on total visit time, I have performed more than 50% of this visit. Objective - Vital Signs Vital signs: Vital Signs Temp 98.4 F 11/11/22 08:00 Pulse 97 11/11/22 10:19 Resp 22 11/11/22 10:19 BP 79/42 11/11/22 12:38 Pulse Ox 91 L 11/11/22 10:19 FiO2 21 11/09/22 08:40 Intake & Output 11/10/22 11/11/22 11/11/22 18:59 06:59 18:59 Intake Total 821 Output Total 52 Balance 821 -52 Intake: Oral 821 Output: Urine 50 Stool 2 Other: Voiding Method Indwelling Catheter Indwelling Catheter - Labs CBC & Chem 7: 11/11/22 02:37 11/11/22 02:37 Labs: Abnormal Lab Results - Last 24 Hours (Table) 11/10/22 11/10/22 11/10/22 Range/Units 15:16 16:23 18:53 WBC (3.8-10.6) k/uL RBC (4.30-5.90) m/uL Hgb (13.0-17.5) gm/dL Hct (39.0-53.0) % MCHC (31.0-37.0) g/dL RDW (11.5-15.5) % Neutrophils # (1.3-7.7) k/uL Lymphocytes # (1.0-4.8) k/uL Sodium (137-145) mmol/L Chloride (98-107) mmol/L Carbon Dioxide (22-30) mmol/L BUN (9-20) mg/dL Creatinine (0.66-1.25) mg/dL Glucose (74-99) mg/dL POC Glucose (mg/dL) 118 H (70-110) mg/dL Plasma Lactic Acid Dominick 4.4 H* 3.5 H* (0.7-2.0) mmol/L Calcium (8.4-10.2) mg/dL Urine Protein (Negative) Urine Blood (Negative) Ur Leukocyte Esterase (Negative) Urine RBC (0-5) /hpf Urine WBC (0-5) /hpf Hyaline Casts (0-2) /lpf Urine Mucus (None) /hpf 11/10/22 11/10/22 11/10/22 Range/Units 19:59 22:00 22:56 WBC (3.8-10.6) k/uL RBC (4.30-5.90) m/uL Hgb (13.0-17.5) gm/dL Hct (39.0-53.0) % MCHC (31.0-37.0) g/dL RDW (11.5-15.5) % Neutrophils # (1.3-7.7) k/uL Lymphocytes # (1.0-4.8) k/uL Sodium (137-145) mmol/L Chloride (98-107) mmol/L Carbon Dioxide (22-30) mmol/L BUN (9-20) mg/dL Creatinine (0.66-1.25) mg/dL Glucose (74-99) mg/dL POC Glucose (mg/dL) 165 H (70-110) mg/dL Plasma Lactic Acid Dominick 2.9 H* (0.7-2.0) mmol/L Calcium (8.4-10.2) mg/dL Urine Protein 1+ H (Negative) Urine Blood Moderate H (Negative) Ur Leukocyte Esterase Small H (Negative) Urine RBC 48 H (0-5) /hpf Urine WBC 11 H (0-5) /hpf Hyaline Casts 4 H (0-2) /lpf Urine Mucus Rare H (None) /hpf 11/11/22 11/11/22 11/11/22 Range/Units 02:37 02:37 02:37 WBC 20.3 H (3.8-10.6) k/uL RBC 2.71 L (4.30-5.90) m/uL Hgb 8.1 L (13.0-17.5) gm/dL Hct 26.8 L (39.0-53.0) % MCHC 30.2 L (31.0-37.0) g/dL RDW 21.2 H (11.5-15.5) % Neutrophils # 19.2 H (1.3-7.7) k/uL Lymphocytes # 0.3 L (1.0-4.8) k/uL Sodium 136 L (137-145) mmol/L Chloride 109 H (98-107) mmol/L Carbon Dioxide 16 L (22-30) mmol/L BUN 102 H* (9-20) mg/dL Creatinine 2.12 H (0.66-1.25) mg/dL Glucose 159 H (74-99) mg/dL POC Glucose (mg/dL) (70-110) mg/dL Plasma Lactic Acid Dominick 2.3 H* (0.7-2.0) mmol/L Calcium 7.6 L (8.4-10.2) mg/dL Urine Protein (Negative) Urine Blood (Negative) Ur Leukocyte Esterase (Negative) Urine RBC (0-5) /hpf Urine WBC (0-5) /hpf Hyaline Casts (0-2) /lpf Urine Mucus (None) /hpf 11/11/22 11/11/22 11/11/22 Range/Units 06:09 08:32 11:26 WBC (3.8-10.6) k/uL RBC (4.30-5.90) m/uL Hgb (13.0-17.5) gm/dL Hct (39.0-53.0) % MCHC (31.0-37.0) g/dL RDW (11.5-15.5) % Neutrophils # (1.3-7.7) k/uL Lymphocytes # (1.0-4.8) k/uL Sodium (137-145) mmol/L Chloride (98-107) mmol/L Carbon Dioxide (22-30) mmol/L BUN (9-20) mg/dL Creatinine (0.66-1.25) mg/dL Glucose (74-99) mg/dL POC Glucose (mg/dL) 171 H 140 H (70-110) mg/dL Plasma Lactic Acid Dominick 6.1 H* (0.7-2.0) mmol/L Calcium (8.4-10.2) mg/dL Urine Protein (Negative) Urine Blood (Negative) Ur Leukocyte Esterase (Negative) Urine RBC (0-5) /hpf Urine WBC (0-5) /hpf Hyaline Casts (0-2) /lpf Urine Mucus (None) /hpf Assessment and Plan Time with Patient: Greater than 30
--- NOTE | 2022-11-11 15:05 | P.CNPUL ---
History of Present Illness Consult date: 11/11/22 Requesting physician: Michael Lopez Reason for consult: dyspnea, hypoxemia Chief complaint: Hypotension. History of present illness: Pulmonary consult dated 11/11/2022. 77-year-old male who was initially seen in the emergency department, on November 02, for fatigue and weakness as well as abnormal labs. The patient apparently had weakness for 3 weeks prior to admission. He also was found to have anemia, with low iron. He apparently was recently diagnosed with lung and liver cancer. We were consulted only for the first time today, because the patient was hypotensive, despite receiving 2 L of fluids. In addition, the patient was on high flow oxygen, at 14-15 L/m. The patient is a DO NOT RESUSCITATE patient, but apparently the family is not willing to make the patient comfort care. I di d speak to the family member at the bedside. The patient clinically looks very ill. He recently had a biopsy of a lesion in the right neck area. He has a history of coronary artery disease, angina, diabetes, hyperlipidemia, hypertension, diverticular disease, peripheral vascular occlusive disease, neuropathy, among other things. He's had a previous heart catheterization with stent, and, was a heavy smoker in the past. Clinically, the patient looks very chronically ill. The most recent labs show white count of 20.3, hemoglobin 8.1, hematocrit 26.8, and a normal platelet count. Sodium 136, potassium 4.9, chlorides 109, CO2 16, anion gap 11, BUN is up to 102. Creatinine is 2.12. Lactic acid which was previously 2.9, and she jumped up to 6.1. Urine from November 10 is reviewed. An ultrasound of the right neck area shows soft tissue masses within the right neck, measuring 2.1 x 1.8 x 1.3 cm. Computed tomography scan of the brain was negative for anything acute. Brain MRI was also negative. Computed tomography scan of the abdomen and pelvis, shows a large mass in the liver. In addition, there may be metastasis to the left adrenal gland. Review of Systems REVIEW OF SYSTEMS: CONSTITUTIONAL: Weakness and fatigue. NEUROLOGIC: [ Negative.] HEENT: [ Negative.] CARDIAC: Hypotension. PULMONARY: Respiratory failure. GI: [Negative.] : [Negative.] RHEUMATOLOGIC: [ Negative.] IMMUNOLOGIC: [ Negative.] ENDOCRINE: [Negative. ] DERMATOLOGIC: [Negative.] Past Medical History Past Medical History: Coronary Artery Disease (CAD), Chest Pain / Angina, Diabetes Mellitus, Hyperlipidemia, Hypertension, Vascular Disorder Additional Past Medical History / Comment(s): Hx rectal bleeding, hemorrhoids, diverticulosis., poor circulation -pt states stent left leg., neuropathy of feet., wound on ball of right foot., hospitalization 04/21/22 -04/30/22 for chest pain & anemia-egd and colonoscopy (gastritis & diverticulosis)., & received blood transfusions.,slight blockage carotid arteries.,. *See Cardiology H & P. History of Any Multi-Drug Resistant Organisms: None Reported Past Surgical History: Heart Catheterization, Heart Catheterization With Stent Additional Past Surgical History / Comment(s): *SEE CARDIOLOGY H&P. Hemorrhoidectomy about 40 years ago, colonoscopy, egd, skin cancer., stent left leg, varicose veins removed, heart cath aborted due to low hgb., debridement right foot callus. EGD/colonoscopy last admission negative for any type of bleed per patient Past Anesthesia/Blood Transfusion Reactions: No Reported Reaction Additional Past Anesthesia/Blood Transfusion Reaction / Comment(s): Pt had no reaction to blood transfusions and has had multiple in the past. Date of Last Stent Placement:: UNK Past Psychological History: No Psychological Hx Reported Smoking Status: Former smoker Past Alcohol Use History: Occasional Additional Past Alcohol Use History / Comment(s): Smoked for 50 years, quit 10 years ago per patient. Past Drug Use History: None Reported - Past Family History Father Family Medical History: Cancer Mother Family Medical History: Cancer Medications and Allergies Home Medications Medication Instructions Recorded Confirmed Type Atorvastatin [Lipitor] 40 mg PO HS 08/12/20 11/02/22 History lisinopriL [Zestril] 5 mg PO DAILY 08/12/20 11/02/22 History Multivit-Min/FA/Lycopen/Lutein 1 tab PO DAILY 04/08/22 11/02/22 History [Centrum Silver Men Tablet] Nitroglycerin Sl Tabs [Nitrostat] 0.4 mg SUBLINGUAL Q5M PRN 04/08/22 11/02/22 History Isosorbide Mononitrate ER [Imdur] 30 mg PO DAILY 30 Days #30 tab 04/11/22 11/02/22 Rx Metoprolol Succinate (ER) [Toprol 25 mg PO DAILY 30 Days #30 tab 04/11/22 11/02/22 Rx XL] Ranolazine [Ranexa] 500 mg PO Q12HR 30 Days #60 tab 04/11/22 11/02/22 Rx Aspirin [Adult Low Dose Aspirin EC] 81 mg PO DAILY 05/21/22 11/02/22 History Clopidogrel [Plavix] 75 mg PO DAILY #90 tab 06/01/22 11/02/22 Rx Cholecalciferol [Vitamin D3 (25 25 mcg PO DAILY 11/02/22 11/02/22 History Mcg = 1000 Iu)] Famotidine 40 mg PO BID 11/02/22 11/02/22 History Allergies Allergy/AdvReac Type Severity Reaction Status Date / Time No Known Allergies Allergy Verified 11/02/22 22:48 Physical Exam Osteopathic Statement: *. No significant issues noted on an osteopathic structural exam other than those noted in the History and Physical/Consult. Vitals: Vital Signs Temp Pulse Resp BP BP BP Pulse Ox 11/11/22 12:38 79/42 11/11/22 11:06 90/39 11/11/22 10:39 82/55 11/11/22 10:19 97 22 78/43 91 L 11/11/22 08:00 98.4 F 99 21 94/48 92 L 11/11/22 07:54 91 L 11/11/22 04:00 97.6 F 94 26 H 90/50 100 11/11/22 02:00 97 26 H 11/11/22 00:00 97 26 H 87/55 100 11/10/22 20:00 97.9 F 94 28 H 107/55 93 L 11/10/22 17:37 97.4 F L 98 18 105/68 97 Intake and Output 11/10/22 11/11/22 11/11/22 22:59 06:59 14:59 Intake Total 110 Output Total 21 31 Balance 89 -31 Intake: Oral 110 Output: Urine 20 30 Stool 1 1 Other: Voiding Method Indwelling Catheter Indwelling Catheter Lethargic and somnolent, appearing very chronically ill. Currently on 15 L high flow oxygen. HEENT examination is grossly unremarkable. Neck supple. Full range of motion. No adenopathy thyromegaly or neck vein distention. Cardiovascular examination reveals regular rhythm rate. S1-S2 normal. No S3 or S4. No discernible murmur noted. Heart rate 97 bpm. Lungs reveal scattered bilateral rhonchi. No wheezes or crackles. Patient currently on 15 L high flow nasal cannula. Abdomen mildly distended. Bowel sounds are noted. No tenderness. Extremities are intact. No cyanosis clubbing or edema. Skin is without rash or lesion. Neurologic examination is brief but nonfocal. Results - Laboratory Findings CBC and BMP: 11/11/22 02:37 11/11/22 02:37 PT/INR, D-dimer PT 11.5 sec (9.0-12.0) 11/02/22 21:50 INR 1.1 (<1.2) 11/02/22 21:50 Abnormal lab findings: Abnormal Labs 11/02/22 11/02/22 11/02/22 21:50 21:50 21:50 WBC 12.3 H RBC 2.66 L Hgb 7.3 L Hct 24.4 L MCV MCH MCHC 29.8 L RDW 21.3 H Plt Count 502 H Neutrophils # 10.7 H Neutrophils # (Manual) Lymphocytes # 0.8 L Monocytes # Eosinophils # Sodium 134 L Potassium 5.2 H Chloride Carbon Dioxide 21 L Anion Gap BUN 51 H Creatinine Est GFR (CKD-EPI) BUN/Creatinine Ratio Glucose 201 H POC Glucose (mg/dL) Hemoglobin A1c Plasma Lactic Acid Dominick Calcium Iron TIBC Transferrin Ferritin AST Alkaline Phosphatase 192 H Total Protein Albumin 2.6 L Globulin Albumin/Globulin Ratio HDL Cholesterol Vitamin B12 Urine Protein Urine Blood Ur Leukocyte Esterase Urine RBC Urine WBC Hyaline Casts Urine Mucus Copper Crossmatch See Detail 11/03/22 11/03/22 11/03/22 03:22 03:22 03:22 WBC 12.7 H RBC 2.31 L Hgb 6.3 L* Hct 21.3 L MCV MCH MCHC 29.5 L RDW 21.6 H Plt Count Neutrophils # 10.9 H Neutrophils # (Manual) Lymphocytes # 0.9 L Monocytes # Eosinophils # Sodium 133 L Potassium Chloride Carbon Dioxide Anion Gap BUN 45 H Creatinine Est GFR (CKD-EPI) BUN/Creatinine Ratio Glucose 139 H POC Glucose (mg/dL) Hemoglobin A1c Plasma Lactic Acid Dominick Calcium Iron TIBC Transferrin Ferritin AST Alkaline Phosphatase 171 H Total Protein 5.5 L Albumin 2.2 L Globulin Albumin/Globulin Ratio HDL Cholesterol 23.70 L Vitamin B12 Urine Protein Urine Blood Ur Leukocyte Esterase Urine RBC Urine WBC Hyaline Casts Urine Mucus Copper Crossmatch 11/03/22 11/03/22 11/04/22 03:22 15:48 06:36 WBC RBC Hgb Hct MCV MCH MCHC RDW Plt Count Neutrophils # Neutrophils # (Manual) Lymphocytes # Monocytes # Eosinophils # Sodium Potassium Chloride Carbon Dioxide 19.0 L Anion Gap 13.00 H BUN 42.3 H Creatinine Est GFR (CKD-EPI) BUN/Creatinine Ratio 38.45 H Glucose 166 H POC Glucose (mg/dL) Hemoglobin A1c Plasma Lactic Acid Dominick Calcium Iron 30 L TIBC 186 L Transferrin 133.0 L Ferritin 695.0 H AST 46 H Alkaline Phosphatase 173 H Total Protein 5.7 L Albumin 2.2 L Globulin 3.5 H Albumin/Globulin Ratio 0.63 L HDL Cholesterol Vitamin B12 1059.0 H Urine Protein Urine Blood Ur Leukocyte Esterase Urine RBC Urine WBC Hyaline Casts Urine Mucus Copper 1535 H Crossmatch 11/04/22 11/05/22 11/05/22 06:47 06:19 06:19 WBC 14.91 H 16.68 H RBC 2.68 L 2.49 L Hgb 7.4 L 6.9 H* Hct 25.1 L 23.8 L MCV MCH MCHC 29.5 L 29.0 L RDW 22.3 H 22.6 H Plt Count Neutrophils # Neutrophils # (Manual) Lymphocytes # Monocytes # Eosinophils # Sodium Potassium Chloride Carbon Dioxide 18.6 L Anion Gap 13.40 H BUN 55.4 H Creatinine Est GFR (CKD-EPI) 47 L BUN/Creatinine Ratio 36.93 H Glucose 199 H POC Glucose (mg/dL) Hemoglobin A1c Plasma Lactic Acid Dominick Calcium 8.6 L Iron TIBC Transferrin Ferritin AST 45 H Alkaline Phosphatase 157 H Total Protein 5.3 L Albumin 2.1 L Globulin Albumin/Globulin Ratio 0.66 L HDL Cholesterol Vitamin B12 Urine Protein Urine Blood Ur Leukocyte Esterase Urine RBC Urine WBC Hyaline Casts Urine Mucus Copper Crossmatch 11/06/22 11/06/22 11/08/22 06:28 06:28 03:23 WBC 16.15 H RBC 2.92 L Hgb 8.4 L Hct 27.6 L MCV MCH MCHC 30.4 L RDW 21.9 H Plt Count Neutrophils # Neutrophils # (Manual) Lymphocytes # Monocytes # Eosinophils # Sodium Potassium Chloride Carbon Dioxide 20.8 L 17.5 L Anion Gap 12.20 H 17.50 H BUN 59.7 H 77.1 H Creatinine 2.1 H Est GFR (CKD-EPI) 56 L 31 L BUN/Creatinine Ratio 45.92 H 36.71 H Glucose 180 H 198 H POC Glucose (mg/dL) Hemoglobin A1c Plasma Lactic Acid Dominick Calcium Iron TIBC Transferrin Ferritin AST 56 H 58 H Alkaline Phosphatase 172 H 184 H Total Protein 5.6 L 5.6 L Albumin 2.1 L 2.2 L Globulin 3.5 H 3.4 H Albumin/Globulin Ratio 0.60 L 0.65 L HDL Cholesterol Vitamin B12 Urine Protein Urine Blood Ur Leukocyte Esterase Urine RBC Urine WBC Hyaline Casts Urine Mucus Copper Crossmatch 11/08/22 11/08/22 11/08/22 03:23 15:35 17:50 WBC 16.2 H RBC 2.90 L Hgb 8.7 L D Hct 28.3 L MCV MCH MCHC 30.7 L RDW 21.1 H Plt Count Neutrophils # 14.5 H Neutrophils # (Manual) Lymphocytes # 0.6 L Monocytes # Eosinophils # Sodium Potassium Chloride Carbon Dioxide Anion Gap BUN Creatinine Est GFR (CKD-EPI) BUN/Creatinine Ratio Glucose POC Glucose (mg/dL) 278 H Hemoglobin A1c Plasma Lactic Acid Dominick Calcium Iron TIBC Transferrin Ferritin AST Alkaline Phosphatase Total Protein Albumin Globulin Albumin/Globulin Ratio HDL Cholesterol Vitamin B12 Urine Protein Trace H Urine Blood Ur Leukocyte Esterase Urine RBC Urine WBC Hyaline Casts Urine Mucus Copper Crossmatch 11/08/22 11/09/22 11/09/22 19:16 05:36 06:03 WBC RBC Hgb Hct MCV MCH MCHC RDW Plt Count Neutrophils # Neutrophils # (Manual) Lymphocytes # Monocytes # Eosinophils # Sodium Potassium Chloride Carbon Dioxide Anion Gap BUN Creatinine Est GFR (CKD-EPI) BUN/Creatinine Ratio Glucose POC Glucose (mg/dL) 336 H 183 H Hemoglobin A1c 6.1 H Plasma Lactic Acid Dominick Calcium Iron TIBC Transferrin Ferritin AST Alkaline Phosphatase Total Protein Albumin Globulin Albumin/Globulin Ratio HDL Cholesterol Vitamin B12 Urine Protein Urine Blood Ur Leukocyte Esterase Urine RBC Urine WBC Hyaline Casts Urine Mucus Copper Crossmatch 11/09/22 11/09/22 11/09/22 06:03 06:03 06:03 WBC 24.9 H RBC 2.50 L Hgb 9.0 L Hct 24.0 L MCV MCH 36.2 H MCHC 37.6 H RDW 21.2 H Plt Count Neutrophils # Neutrophils # (Manual) 23.40 H Lymphocytes # Monocytes # Eosinophils # Sodium 133 L Potassium 5.7 H Chloride Carbon Dioxide 20 L Anion Gap BUN 96 H Creatinine 1.95 H Est GFR (CKD-EPI) BUN/Creatinine Ratio Glucose 146 H POC Glucose (mg/dL) Hemoglobin A1c Plasma Lactic Acid Dominick Calcium Iron 28 L TIBC 186 L Transferrin 133.0 L Ferritin 1943.0 H AST Alkaline Phosphatase Total Protein Albumin Globulin Albumin/Globulin Ratio HDL Cholesterol Vitamin B12 Urine Protein Urine Blood Ur Leukocyte Esterase Urine RBC Urine WBC Hyaline Casts Urine Mucus Copper Crossmatch 11/09/22 11/09/22 11/10/22 10:54 13:04 06:26 WBC RBC Hgb Hct MCV MCH MCHC RDW Plt Count Neutrophils # Neutrophils # (Manual) Lymphocytes # Monocytes # Eosinophils # Sodium Potassium Chloride Carbon Dioxide 20.5 L Anion Gap 13.50 H BUN 87.6 H Creatinine 1.9 H Est GFR (CKD-EPI) 35 L BUN/Creatinine Ratio 46.11 H Glucose 57 L POC Glucose (mg/dL) 173 H 140 H Hemoglobin A1c Plasma Lactic Acid Dominick Calcium Iron TIBC Transferrin Ferritin AST Alkaline Phosphatase Total Protein Albumin Globulin Albumin/Globulin Ratio HDL Cholesterol Vitamin B12 Urine Protein Urine Blood Ur Leukocyte Esterase Urine RBC Urine WBC Hyaline Casts Urine Mucus Copper Crossmatch 11/10/22 11/10/22 11/10/22 06:26 12:49 14:28 WBC 21.00 H RBC 2.91 L Hgb 8.7 L Hct 28.6 L MCV 98.3 H MCH MCHC 30.4 L RDW 23.8 H Plt Count Neutrophils # 19.21 H Neutrophils # (Manual) Lymphocytes # 0.64 L Monocytes # 1.01 H Eosinophils # 0.01 L Sodium Potassium Chloride Carbon Dioxide Anion Gap BUN Creatinine Est GFR (CKD-EPI) BUN/Creatinine Ratio Glucose POC Glucose (mg/dL) 119 H 126 H Hemoglobin A1c Plasma Lactic Acid Dominick Calcium Iron TIBC Transferrin Ferritin AST Alkaline Phosphatase Total Protein Albumin Globulin Albumin/Globulin Ratio HDL Cholesterol Vitamin B12 Urine Protein Urine Blood Ur Leukocyte Esterase Urine RBC Urine WBC Hyaline Casts Urine Mucus Copper Crossmatch 11/10/22 11/10/22 11/10/22 15:16 16:23 18:53 WBC RBC Hgb Hct MCV MCH MCHC RDW Plt Count Neutrophils # Neutrophils # (Manual) Lymphocytes # Monocytes # Eosinophils # Sodium Potassium Chloride Carbon Dioxide Anion Gap BUN Creatinine Est GFR (CKD-EPI) BUN/Creatinine Ratio Glucose POC Glucose (mg/dL) 118 H Hemoglobin A1c Plasma Lactic Acid Dominick 4.4 H* 3.5 H* Calcium Iron TIBC Transferrin Ferritin AST Alkaline Phosphatase Total Protein Albumin Globulin Albumin/Globulin Ratio HDL Cholesterol Vitamin B12 Urine Protein Urine Blood Ur Leukocyte Esterase Urine RBC Urine WBC Hyaline Casts Urine Mucus Copper Crossmatch 11/10/22 11/10/22 11/10/22 19:59 22:00 22:56 WBC RBC Hgb Hct MCV MCH MCHC RDW Plt Count Neutrophils # Neutrophils # (Manual) Lymphocytes # Monocytes # Eosinophils # Sodium Potassium Chloride Carbon Dioxide Anion Gap BUN Creatinine Est GFR (CKD-EPI) BUN/Creatinine Ratio Glucose POC Glucose (mg/dL) 165 H Hemoglobin A1c Plasma Lactic Acid Dominick 2.9 H* Calcium Iron TIBC Transferrin Ferritin AST Alkaline Phosphatase Total Protein Albumin Globulin Albumin/Globulin Ratio HDL Cholesterol Vitamin B12 Urine Protein 1+ H Urine Blood Moderate H Ur Leukocyte Esterase Small H Urine RBC 48 H Urine WBC 11 H Hyaline Casts 4 H Urine Mucus Rare H Copper Crossmatch 11/11/22 11/11/22 11/11/22 02:37 02:37 02:37 WBC 20.3 H RBC 2.71 L Hgb 8.1 L Hct 26.8 L MCV MCH MCHC 30.2 L RDW 21.2 H Plt Count Neutrophils # 19.2 H Neutrophils # (Manual) Lymphocytes # 0.3 L Monocytes # Eosinophils # Sodium 136 L Potassium Chloride 109 H Carbon Dioxide 16 L Anion Gap BUN 102 H* Creatinine 2.12 H Est GFR (CKD-EPI) BUN/Creatinine Ratio Glucose 159 H POC Glucose (mg/dL) Hemoglobin A1c Plasma Lactic Acid Dominick 2.3 H* Calcium 7.6 L Iron TIBC Transferrin Ferritin AST Alkaline Phosphatase Total Protein Albumin Globulin Albumin/Globulin Ratio HDL Cholesterol Vitamin B12 Urine Protein Urine Blood Ur Leukocyte Esterase Urine RBC Urine WBC Hyaline Casts Urine Mucus Copper Crossmatch 11/11/22 11/11/22 11/11/22 06:09 08:32 11:26 WBC RBC Hgb Hct MCV MCH MCHC RDW Plt Count Neutrophils # Neutrophils # (Manual) Lymphocytes # Monocytes # Eosinophils # Sodium Potassium Chloride Carbon Dioxide Anion Gap BUN Creatinine Est GFR (CKD-EPI) BUN/Creatinine Ratio Glucose POC Glucose (mg/dL) 171 H 140 H Hemoglobin A1c Plasma Lactic Acid Dominick 6.1 H* Calcium Iron TIBC Transferrin Ferritin AST Alkaline Phosphatase Total Protein Albumin Globulin Albumin/Globulin Ratio HDL Cholesterol Vitamin B12 Urine Protein Urine Blood Ur Leukocyte Esterase Urine RBC Urine WBC Hyaline Casts Urine Mucus Copper Crossmatch - Diagnostic Findings Chest x-ray: image reviewed Assessment and Plan Assessment: Large liver mass, with suspected metastasis to the right cervical region, adrenal gland and lung. S/P recent cervical lymph node biopsy, 11/09/2022. Hypotension, unresponsive to fluid administration. Acute hypoxemic respiratory failure, currently on 15 L high flow nasal cannula. History of CAD, with previous stent placement. History of diabetes mellitus with diabetic neuropathy. History of hypertension. History of hyperlipidemia. History of diverticular disease. History of peripheral vascular occlusive disease. History of anemia. Plan: Plan dated 11/11/2022. We were asked by the hospital service, to consider transferring this patient to the intensive care unit, for closer monitoring and management, including fluid administration, oxygen therapy, and possibly vasopressors, for the patient's low blood pressure. I did have a chance to speak to the patient's family member at the bedside. She was agreeable to having him transferred to the intensive care unit. He is a DO NOT RESUSCITATE patient, i.e. no intubation/mechanical ventilation. Additional recommendations and suggestions are forthcoming. Labs are reviewed. Medications are reviewed. X-rays are reviewed. Prognosis is certainly poor. Time with Patient: Greater than 30
--- NOTE | 2022-11-11 15:37 | P.GSCN ---
History of Present Illness Consult date: 11/11/22 History of present illness: CHIEF COMPLAINT: Fatigue and weakness Reason for consult bowel obstruction HISTORY OF PRESENT ILLNESS: This is a 77-year-old male who presented with fatigue and weakness. Patient recently diagnosed with lung and liver cancer. He is followed by oncology service. Patient had abdominal distention and abdominal x-ray was completed showing dilated bowel loops throughout the abdomen and concerns for a bowel obstruction. Surgical service was consulted. On patient denies any nausea or vomiting but does report diffuse abdominal pain. He did have 2 small bowel movements yesterday. Patient denies any prior history of bowel obstruction. Denies any prior abdominal surgical history. Patient's history was taken mostly from chart. He is confused at times. Patient has been hypotensive and is requiring 15 L of oxygen. He had been on Plavix this is currently held. He was admitted to the hospital with a low hemoglobin and has received 2 units of blood. Patient's CODE STATUS currently a DO NOT RESUSCITATE. Patient seen and examined with Dr. Renee PAST MEDICAL HISTORY: See below PAST SURGICAL HISTORY: See below MEDICATIONS: See below ALLERGIES: See below SOCIAL HISTORY: No illicit drug use. REVIEW OF SYSTEMS: CONSTITUTIONAL: Denies fever or chills. HEENT: Denies blurred vision, vision changes, or eye pain. Denies hemoptysis CARDIOVASCULAR: Denies chest pain or pressure. RESPIRATORY: No shortness of breath. GASTROINTESTINAL: See HPI for pertinent findings HEMATOLOGIC: Denies bleeding disorders. GENITOURINARY: Denies any blood in urine or increased urinary frequency. SKIN: Denies pruitis. Denies rash. PHYSICAL EXAM: VITAL SIGNS: Reviewed GENERAL: Well-developed in no acute distress. ABDOMEN: Distended. Diffuse tenderness NEUROLOGIC: Awake. Confused. LABORATORY DATA: WBC 20.3 Hgb 8.1 platelets 338 Sodium 136 potassium 4.9 creatinine 2.12 Lactic acid 6.1 IMAGING: Abdominal x-ray dilated loops of gas-filled bowel throughout the abdomen. There is concern for obstruction consider CT imaging ASSESSMENT: 1. Abdominal pain with distention. X-ray showing evidence of dilated loops of gas-filled throughout the abdomen concerns for possible obstruction 2. History of large liver mass with suspected metastasis to the right cervical region, adrenal gland and lung PLAN: -Computed tomography scan abdomen and pelvis with oral contrast ordered for further evaluation of abdominal pain and distention and concerns for possible obstruction -Keep patient nothing by mouth -Patient is high risk for any surgical intervention. High mortality risk with any surgery. -Recommend no surgical intervention at this time. Patient's family at bedside is agreeable to this plan -Continue supportive care Physician Mandrel Puller note has been reviewed by physician. Signing provider agrees with the documented findings, assessment, and plan of care. Past Medical History Past Medical History: Coronary Artery Disease (CAD), Chest Pain / Angina, Diabetes Mellitus, Hyperlipidemia, Hypertension, Vascular Disorder Additional Past Medical History / Comment(s): Hx rectal bleeding, hemorrhoids, diverticulosis., poor circulation -pt states stent left leg., neuropathy of feet., wound on ball of right foot., hospitalization 04/21/22 -04/30/22 for chest pain & anemia-egd and colonoscopy (gastritis & diverticulosis)., & received blood transfusions.,slight blockage carotid arteries.,. *See Cardiology H & P. History of Any Multi-Drug Resistant Organisms: None Reported Past Surgical History: Heart Catheterization, Heart Catheterization With Stent Additional Past Surgical History / Comment(s): *SEE CARDIOLOGY H&P. Hemorrhoidectomy about 40 years ago, colonoscopy, egd, skin cancer., stent left leg, varicose veins removed, heart cath aborted due to low hgb., debridement right foot callus. EGD/colonoscopy last admission negative for any type of bleed per patient Past Anesthesia/Blood Transfusion Reactions: No Reported Reaction Additional Past Anesthesia/Blood Transfusion Reaction / Comm: Pt had no reaction to blood transfusions and has had multiple in the past. Date of Last Stent Placement:: UNK Past Psychological History: No Psychological Hx Reported Smoking Status: Former smoker Past Alcohol Use History: Occasional Additional Past Alcohol Use History / Comment(s): Smoked for 50 years, quit 10 years ago per patient. Past Drug Use History: None Reported - Past Family History Father Family Medical History: Cancer Mother Family Medical History: Cancer Medications and Allergies Home Medications Medication Instructions Recorded Confirmed Type Atorvastatin [Lipitor] 40 mg PO HS 08/12/20 11/02/22 History lisinopriL [Zestril] 5 mg PO DAILY 08/12/20 11/02/22 History Multivit-Min/FA/Lycopen/Lutein 1 tab PO DAILY 04/08/22 11/02/22 History [Centrum Silver Men Tablet] Nitroglycerin Sl Tabs [Nitrostat] 0.4 mg SUBLINGUAL Q5M PRN 04/08/22 11/02/22 History Isosorbide Mononitrate ER [Imdur] 30 mg PO DAILY 30 Days #30 tab 04/11/22 11/02/22 Rx Metoprolol Succinate (ER) [Toprol 25 mg PO DAILY 30 Days #30 tab 04/11/22 11/02/22 Rx XL] Ranolazine [Ranexa] 500 mg PO Q12HR 30 Days #60 tab 04/11/22 11/02/22 Rx Aspirin [Adult Low Dose Aspirin EC] 81 mg PO DAILY 05/21/22 11/02/22 History Clopidogrel [Plavix] 75 mg PO DAILY #90 tab 06/01/22 11/02/22 Rx Cholecalciferol [Vitamin D3 (25 25 mcg PO DAILY 11/02/22 11/02/22 History Mcg = 1000 Iu)] Famotidine 40 mg PO BID 11/02/22 11/02/22 History Allergies Allergy/AdvReac Type Severity Reaction Status Date / Time No Known Allergies Allergy Verified 11/02/22 22:48 Surgical - Exam Vital Signs Temp Pulse Resp BP Pulse Ox 97.7 F 92 22 101/64 99 11/02/22 21:18 11/02/22 21:18 11/02/22 21:18 11/02/22 21:18 11/02/22 21:18 Results - Labs 11/11/22 02:37 11/11/22 02:37 Abnormal Lab Results - Last 24 Hours (Table) 11/10/22 11/10/22 11/10/22 Range/Units 06:26 12:49 14:28 WBC (3.8-10.6) k/uL RBC (4.30-5.90) m/uL Hgb (13.0-17.5) gm/dL Hct (39.0-53.0) % MCHC (31.0-37.0) g/dL RDW (11.5-15.5) % Neutrophils # (1.3-7.7) k/uL Lymphocytes # (1.0-4.8) k/uL Sodium (137-145) mmol/L Chloride (98-107) mmol/L Carbon Dioxide 20.5 L (21.6-31.8) mmol/L Anion Gap 13.50 H (4.00-12.00) mmol/L BUN 87.6 H (9.0-27.0) mg/dL Creatinine 1.9 H (0.6-1.5) mg/dL Est GFR (CKD-EPI) 35 L (>=60) BUN/Creatinine Ratio 46.11 H (12.00-20.00) Ratio Glucose 57 L (70-110) mg/dL POC Glucose (mg/dL) 119 H 126 H (70-110) mg/dL Plasma Lactic Acid Dominick (0.7-2.0) mmol/L Calcium (8.4-10.2) mg/dL Urine Protein (Negative) Urine Blood (Negative) Ur Leukocyte Esterase (Negative) Urine RBC (0-5) /hpf Urine WBC (0-5) /hpf Hyaline Casts (0-2) /lpf Urine Mucus (None) /hpf 11/10/22 11/10/22 11/10/22 Range/Units 15:16 16:23 18:53 WBC (3.8-10.6) k/uL RBC (4.30-5.90) m/uL Hgb (13.0-17.5) gm/dL Hct (39.0-53.0) % MCHC (31.0-37.0) g/dL RDW (11.5-15.5) % Neutrophils # (1.3-7.7) k/uL Lymphocytes # (1.0-4.8) k/uL Sodium (137-145) mmol/L Chloride (98-107) mmol/L Carbon Dioxide (21.6-31.8) mmol/L Anion Gap (4.00-12.00) mmol/L BUN (9.0-27.0) mg/dL Creatinine (0.6-1.5) mg/dL Est GFR (CKD-EPI) (>=60) BUN/Creatinine Ratio (12.00-20.00) Ratio Glucose (70-110) mg/dL POC Glucose (mg/dL) 118 H (70-110) mg/dL Plasma Lactic Acid Dominick 4.4 H* 3.5 H* (0.7-2.0) mmol/L Calcium (8.4-10.2) mg/dL Urine Protein (Negative) Urine Blood (Negative) Ur Leukocyte Esterase (Negative) Urine RBC (0-5) /hpf Urine WBC (0-5) /hpf Hyaline Casts (0-2) /lpf Urine Mucus (None) /hpf 11/10/22 11/10/22 11/10/22 Range/Units 19:59 22:00 22:56 WBC (3.8-10.6) k/uL RBC (4.30-5.90) m/uL Hgb (13.0-17.5) gm/dL Hct (39.0-53.0) % MCHC (31.0-37.0) g/dL RDW (11.5-15.5) % Neutrophils # (1.3-7.7) k/uL Lymphocytes # (1.0-4.8) k/uL Sodium (137-145) mmol/L Chloride (98-107) mmol/L Carbon Dioxide (21.6-31.8) mmol/L Anion Gap (4.00-12.00) mmol/L BUN (9.0-27.0) mg/dL Creatinine (0.6-1.5) mg/dL Est GFR (CKD-EPI) (>=60) BUN/Creatinine Ratio (12.00-20.00) Ratio Glucose (70-110) mg/dL POC Glucose (mg/dL) 165 H (70-110) mg/dL Plasma Lactic Acid Dominick 2.9 H* (0.7-2.0) mmol/L Calcium (8.4-10.2) mg/dL Urine Protein 1+ H (Negative) Urine Blood Moderate H (Negative) Ur Leukocyte Esterase Small H (Negative) Urine RBC 48 H (0-5) /hpf Urine WBC 11 H (0-5) /hpf Hyaline Casts 4 H (0-2) /lpf Urine Mucus Rare H (None) /hpf 11/11/22 11/11/22 11/11/22 Range/Units 02:37 02:37 02:37 WBC 20.3 H (3.8-10.6) k/uL RBC 2.71 L (4.30-5.90) m/uL Hgb 8.1 L (13.0-17.5) gm/dL Hct 26.8 L (39.0-53.0) % MCHC 30.2 L (31.0-37.0) g/dL RDW 21.2 H (11.5-15.5) % Neutrophils # 19.2 H (1.3-7.7) k/uL Lymphocytes # 0.3 L (1.0-4.8) k/uL Sodium 136 L (137-145) mmol/L Chloride 109 H (98-107) mmol/L Carbon Dioxide 16 L (21.6-31.8) mmol/L Anion Gap (4.00-12.00) mmol/L BUN 102 H* (9.0-27.0) mg/dL Creatinine 2.12 H (0.6-1.5) mg/dL Est GFR (CKD-EPI) (>=60) BUN/Creatinine Ratio (12.00-20.00) Ratio Glucose 159 H (70-110) mg/dL POC Glucose (mg/dL) (70-110) mg/dL Plasma Lactic Acid Dominick 2.3 H* (0.7-2.0) mmol/L Calcium 7.6 L (8.4-10.2) mg/dL Urine Protein (Negative) Urine Blood (Negative) Ur Leukocyte Esterase (Negative) Urine RBC (0-5) /hpf Urine WBC (0-5) /hpf Hyaline Casts (0-2) /lpf Urine Mucus (None) /hpf 11/11/22 11/11/22 Range/Units 06:09 08:32 WBC (3.8-10.6) k/uL RBC (4.30-5.90) m/uL Hgb (13.0-17.5) gm/dL Hct (39.0-53.0) % MCHC (31.0-37.0) g/dL RDW (11.5-15.5) % Neutrophils # (1.3-7.7) k/uL Lymphocytes # (1.0-4.8) k/uL Sodium (137-145) mmol/L Chloride (98-107) mmol/L Carbon Dioxide (21.6-31.8) mmol/L Anion Gap (4.00-12.00) mmol/L BUN (9.0-27.0) mg/dL Creatinine (0.6-1.5) mg/dL Est GFR (CKD-EPI) (>=60) BUN/Creatinine Ratio (12.00-20.00) Ratio Glucose (70-110) mg/dL POC Glucose (mg/dL) 171 H (70-110) mg/dL Plasma Lactic Acid Dominick 6.1 H* (0.7-2.0) mmol/L Calcium (8.4-10.2) mg/dL Urine Protein (Negative) Urine Blood (Negative) Ur Leukocyte Esterase (Negative) Urine RBC (0-5) /hpf Urine WBC (0-5) /hpf Hyaline Casts (0-2) /lpf Urine Mucus (None) /hpf Diabetes panel 11/10/22 11/11/22 Range/Units 06:26 02:37 Sodium 139 136 L (135-145) mmol/L Potassium 4.4 4.9 (3.5-5.5) mmol/L Chloride 105 109 H (96-109) mmol/L Carbon Dioxide 20.5 L 16 L (21.6-31.8) mmol/L BUN 87.6 H 102 H* (9.0-27.0) mg/dL Creatinine 1.9 H 2.12 H (0.6-1.5) mg/dL Glucose 57 L 159 H (70-110) mg/dL Calcium 8.7 7.6 L (8.7-10.3) mg/dL Calcium panel 11/10/22 11/11/22 Range/Units 06: 02:37 Calcium 8.7 7.6 L (8.7-10.3) mg/dL Pituitary panel 11/10/22 11/11/22 Range/Units 06:26 02:37 Sodium 139 136 L (135-145) mmol/L Potassium 4.4 4.9 (3.5-5.5) mmol/L Chloride 105 109 H (96-109) mmol/L Carbon Dioxide 20.5 L 16 L (21.6-31.8) mmol/L BUN 87.6 H 102 H* (9.0-27.0) mg/dL Creatinine 1.9 H 2.12 H (0.6-1.5) mg/dL Glucose 57 L 159 H (70-110) mg/dL Calcium 8.7 7.6 L (8.7-10.3) mg/dL Adrenal panel 11/10/22 11/11/22 Range/Units 06:26 02:37 Sodium 139 136 L (135-145) mmol/L Potassium 4.4 4.9 (3.5-5.5) mmol/L Chloride 105 109 H (96-109) mmol/L Carbon Dioxide 20.5 L 16 L (21.6-31.8) mmol/L BUN 87.6 H 102 H* (9.0-27.0) mg/dL Creatinine 1.9 H 2.12 H (0.6-1.5) mg/dL Glucose 57 L 159 H (70-110) mg/dL Calcium 8.7 7.6 L (8.7-10.3) mg/dL
--- NOTE | 2022-11-11 15:43 | CT ---
EXAMINATION TYPE: CT ChestAbdPelvis wo con CT DLP: 772.3 mGycm, Automated exposure control for dose reduction was used. DATE OF EXAM: 11/11/2022 3:24 PM COMPARISON: CT 10/05/2022 CLINICAL INDICATION:Male, 77 years old with history of abdominal pain and distention; PHH, Abdominal pain and distention. Technique: Multiple axial images of the chest, abdomen, and pelvis were obtained. Two-dimensional cor onal and sagittal reconstructions were obtained. Contrast used: mL of , Oral contrast used: with Oral Contrast Findings: CHEST: LUNGS/ PLEURA: Increasing size and number of pulmonary nodules throughout the lungs includes left tobias g 8 mm, the left lower lung and right lower lung are poorly visualized due to atelectasis and/or pneu monia. Right upper lung nodule measuring 8 mm. There is trace bilateral pleural effusions. AIRWAY: Patent and unremarkable. HEART: Size within normal limits. MEDIASTINUM: Lymphadenopathy throughout the mediastinum including right low paratracheal measuring 16 mm in short axis, subcarinal measuring 18 mm in short axis. VASCULATURE : No aortic aneurysm. MUSCULOSKELETAL: No acute osseous abnormalities. SOFT TISSUES/LYMPH NODES: Unremarkable. LOWER NECK: No significant findings. ABDOMEN: LIVER/GALLBLADDER: Dominant hypoattenuating mass primarily within segment 5 and extending into segmen t 8 of the right hepatic lobe. Grossly measures 9.2 x 10.6 cm. There is the region of the gallbladder which is poorly visualized. There are several new hypodense lesions within the right hepatic lobe ne ar the dome which appear increased in size compared to immediate prior on 10/05/2022. The largest tavia uring 2.0 cm in the dome, previously 1.5 cm. Smaller dominant mass inferiorly measuring 4.9, percenta ge 3.7 cm. BILE DUCTS: Unremarkable. PANCREAS: Unremarkable. SPLEEN: Unremarkable. ADRENAL GLANDS: The right adrenal gland is unremarkable. There is increased size of left adrenal glan d nodule now measuring 2.4 cm previously 1.3 cm. KIDNEYS AND URETERS: No evidence of hydronephrosis bilaterally likely vascular renal calcifications. The kidneys enhance symmetrically. PELVIS BLADDER: Baum catheter in place. REPRODUCTIVE: Prostate is enlarged in size measuring 5.8 cm in transverse dimension. ABDOMEN & PELVIS STOMACH AND BOWEL: There is a hiatal hernia now present. Enteric contrast reaches the descending colo n. There is stool present throughout the colon which limits evaluation. No evidence of bowel obstruct ion. PERITONEUM: No evidence of pneumoperitoneum. Large amount of free fluid in the abdomen on today's exa m. VASCULATURE: Moderate atherosclerotic calcifications are present throughout the abdominal aorta and i ts branches. No evidence of aortic aneurysm. Left superficial femoral artery stent identified. Few pe lvic phleboliths. MUSCULOSKELETAL: No acute osseous abnormalities. Mild disc degeneration changes are present throughou t the thoracolumbar spine. LYMPH NODES: Mildly prominent periaortic lymph nodes with central low density with example including a left para-aortic lymph node measuring 18 mm, producing 13 mm series 201 image 63. SOFT TISSUE/ABDOMINAL WALL: Unremarkable IMPRESSION: 1. Interval development of large volume ascites. 2. Worsening metastatic disease. * Dominant hypodense mass within the right hepatic lobe in the region of the gallbladder remains pre sent. * Redemonstration of several hypodense lesions within the right hepatic lobe which appear increased in size. * Interval increase in left adrenal gland nodule size. * Increase in retroperitoneal lymphadenopathy. * Increase in size and number of pulmonary nodules throughout the lungs. * Adenopathy throughout the mediastinum 3. Consolidation changes in the bilateral lungs correlate for aspiration pneumonia. 4. Trace bilateral pleural effusions. 5. Small hiatal hernia. 6. Primary malignancy with severe coronary artery desiccation's.
[2022-11-11 16:35] LABS: Glucose,Whole Blood 120 mg/dL (70-110)
[2022-11-11 16:57] VITALS: TEMP 96.4
[2022-11-11] MEDS ORDERED: NOREPINEPHRINE 4 MG in SODIUM CHLORIDE 0.9% 250 ML IV SCH (17:00)
[2022-11-11] MEDS ORDERED: ATROPINE OPHTH SOLN 1% 5ML BTL SUBLINGUAL PRN (17:30)
[2022-11-11] MEDS ORDERED: MORPHINE SULFATE 4 MG/ML SYRINGE IVP ONE (17:30)
[2022-11-11] MEDS ORDERED: MIDODRINE 5 MG TAB PO SCH (17:30)
[2022-11-11] MEDS ORDERED: LORazepam 2 MG/ML INJ IV PRN (17:30)
[2022-11-11 17:54] VITALS: BP 75/47
[2022-11-11] MEDS ORDERED: SCOPOLAMINE 1 MG/72 HR PATCH TRANSDERM SCH (18:00)
[2022-11-11] MEDS ORDERED: MORPHINE SULFATE (100 MG/2 ML) 100 MG in SODIUM CHLORIDE 0.9% 100 ML IV SCH (18:00)
[2022-11-11 20:20] VITALS: PULSE 74; RESP 26
--- NOTE | 2022-11-13 17:08 | P.DS ---
Providers Date of admission: 11/08/22 15:32 Attending physician: Michael Lopez Consults: 11/11/22 13:12 Consult Physician Urgent Consulting Provider: Grant Márquez Reason/Comments: Evaluation for ICU Do you want consulting provider notified?: Already Contacted Primary care physician: Michael Lopez Hospital Course: Final Diagnosis -Liver mass with likely metastasis to the lung, retroperitoneal lymph nodes, and left adrenal gland,, lung and mediastinum status post lymph biopsy right neck. Pathology confirms malignancy with GI or lung primary. -Primary malignancy with severe coronary artery dessications noted on CT scan -Acute hypoxic respiratory failure likely due to pneumonitis possibly aspiration -Large volume ascites -Septic shock source of infection under investigation possible SBP -Acute metabolic encephalopathy secondary to RAOUL -Acute kidney injury secondary to Acute tubular necrosis and sepsis -Urinary retention requiring indwelling urinary catheter -Anemia, acute blood loss, with underlying iron deficiency, symptomatic with hemoglobin 8.1 has received 2 units of PRBC this admission. -Angina at rest -Coronary artery disease with prior cardiac stenting -Hx moderate aortic stenosis No Code Patient on 11/12/2021 at 0049 preliminary cause of metastatic malignancy Hospital Course This is a pleasant 77 year old male admitted for symptomatic anemia, has recei evi total 2 units of PRBC. Patient has past medical history significant for coronary artery disease with previous stenting, hypertension, hyperlipidemia, aortic stenosis, anemia, and liver mass. Patient presented with chest pain and was admitted under medicine with consult placed to hematology/oncology. Patient states the day prior to admission he began having pain in the middle of his chest that radiated down both of his arms. The patient states he has been feeling exhausted with minimal activity. He states it has been like this for approximately one month. He also reports sustaining a fall approximately 6 weeks ago. Initial work up reveals mild leukocytosis, anemia hgb of 7.3, sodium 134, potassium 4.2, BUN 51, creatinine 1.19, negative troponin level. EKG reveals sinus mechanism with no signs of acute ischemia. First degree AV block. He was evaluated by cardiology recommending to hold plavix for scheduled liver biopsy and can resume 48 hours after, liver bx was scheduled on 11/15/22. [place] cardiac symptoms not suggestive of ACS and likely to underlying anemia and malignancy. 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 The primary cancer is suspected of lung or upper GI, the pathology has excluded hepatocellular carcinoma as primary. He began having worsening abdominal distention and evidence of urinary retention and also RAOUL. An abdominal xray reveals possible bowel obstruction and patient also had evidence of sepsis with blood pressures dropping into the 70s systolic. He was on nasal cannula, and had diffuse weakness. A chest/abdomen/pelvis CT was done which reveals interval development of large volume ascites, worsening metastatic disease, and other findings suggesting metastasis to the lung, mediastinum, retroperitoneal, hepatic and left adrenal regions. Due to the hypotension and lactic acid of 6 patient was brought to the ICU and to continue on IV fluids, IV antibiotics and sepsis work up. Patients CT results were discussed with family and patient was already a no code. Family decided on comfort care and patient 11/12/21 at 0049. Thank you for allowing us to participate in the care of this patient. The impression and plan of care has been dictated by Laura Patel, Nurse Practitioner as directed. Dr. Kierra MD I have performed a history and physical examination and medical decision making of this patient, discussed the same with the dictator, and agree with the dictators assessment and plan as written, documented as a scribe. Based on total visit time, I have performed more than 50% of this visit. Plan - Discharge Summary Discharge Rx Participant: Yes New Discharge Prescriptions: No Action Nitroglycerin Sl Tabs [Nitrostat] 0.4 mg SUBLINGUAL Q5M PRN PRN Reason: Chest Pain Multivit-Min/FA/Lycopen/Lutein [Centrum Silver Men Tablet] 1 tab PO DAILY Isosorbide Mononitrate ER [Imdur] 30 mg PO DAILY 30 Days #30 tab Clopidogrel [Plavix] 75 mg PO DAILY #90 tab Atorvastatin [Lipitor] 40 mg PO HS lisinopriL [Zestril] 5 mg PO DAILY Ranolazine [Ranexa] 500 mg PO Q12HR 30 Days #60 tab Metoprolol Succinate (ER) [Toprol XL] 25 mg PO DAILY 30 Days #30 tab Aspirin [Adult Low Dose Aspirin EC] 81 mg PO DAILY Cholecalciferol [Vitamin D3 (25 Mcg = 1000 Iu)] 25 mcg PO DAILY Famotidine 40 mg PO BID Discharge Medication List Atorvastatin [Lipitor] 40 mg PO HS 08/12/20 [History] lisinopriL [Zestril] 5 mg PO DAILY 08/12/20 [History] Multivit-Min/FA/Lycopen/Lutein [Centrum Silver Men Tablet] 1 tab PO DAILY 04/08/22 [History] Nitroglycerin Sl Tabs [Nitrostat] 0.4 mg SUBLINGUAL Q5M PRN 04/08/22 [History] Isosorbide Mononitrate ER [Imdur] 30 mg PO DAILY 30 Days #30 tab 04/11/22 [Rx] Metoprolol Succinate (ER) [Toprol XL] 25 mg PO DAILY 30 Days #30 tab 04/11/22 [Rx] Ranolazine [Ranexa] 500 mg PO Q12HR 30 Days #60 tab 04/11/22 [Rx] Aspirin [Adult Low Dose Aspirin EC] 81 mg PO DAILY 05/21/22 [History] Clopidogrel [Plavix] 75 mg PO DAILY #90 tab 06/01/22 [Rx] Cholecalciferol [Vitamin D3 (25 Mcg = 1000 Iu)] 25 mcg PO DAILY 11/02/22 [History] Famotidine 40 mg PO BID 11/02/22 [History] Follow up Appointment(s)/Referral(s): Donald Edouard MD [STAFF PHYSICIAN] - 11/18/22 1:30 pm Michael Lopez MD [Primary Care Provider] - 1-2 days [facility], [NON-STAFF] - 1 Week Discharge Disposition: - Preliminary Cause of Preliminary Cause of : metastatic malignancy
== END 2022-11-12 02:58 | disposition expired | DRG 987 ==
LOC: EC 21:00 → 6NMEDSUR 22:53 → OBSVTOIN 11-08 15:32 → 3SCARD 11-10 15:23 → 2SICU 11-11 16:04
PROVIDERS: ADMIT Family Medicine; ATTEND Family Medicine
PROC: 4A10X4Z Monitoring of Central Nervous Electrical Activity, External Approach (ICD-10-PCS; 2022-11-05)
PROC: 30233N1 Transfusion of Nonautologous Red Blood Cells into Peripheral Vein, Percutaneous Approach (ICD-10-PCS; 2022-11-05)
PROC: 07B13ZX Excision of Right Neck Lymphatic, Percutaneous Approach, Diagnostic (ICD-10-PCS; principal; 2022-11-09)
PROC: 3E033XZ Introduction of Vasopressor into Peripheral Vein, Percutaneous Approach (ICD-10-PCS; 2022-11-11)
PROC: 05H933Z Insertion of Infusion Device into Right Brachial Vein, Percutaneous Approach (ICD-10-PCS; 2022-11-11 11:15)
DX: C22.9 Malignant neoplasm of liver, not specified as primary or secondary (principal); A41.9 Sepsis, unspecified organism; G93.41 Metabolic encephalopathy; J96.01 Acute respiratory failure with hypoxia; R65.21 Severe sepsis with septic shock; N17.0 Acute kidney failure with tubular necrosis; J69.0 Pneumonitis due to inhalation of food and vomit; K65.2 Spontaneous bacterial peritonitis; C77.0 Secondary and unspecified malignant neoplasm of lymph nodes of head, face and neck; C78.00 Secondary malignant neoplasm of unspecified lung; D62 Acute posthemorrhagic anemia; R18.8 Other ascites; E87.1 Hypo-osmolality and hyponatremia; E87.20 Acidosis, unspecified; J44.0 Chronic obstructive pulmonary disease with (acute) lower respiratory infection; C79.72 Secondary malignant neoplasm of left adrenal gland; C77.2 Secondary and unspecified malignant neoplasm of intra-abdominal lymph nodes; I25.119 Atherosclerotic heart disease of native coronary artery with unspecified angina pectoris; D53.9 Nutritional anemia, unspecified; Z51.5 Encounter for palliative care; Z66 Do not resuscitate; E11.622 Type 2 diabetes mellitus with other skin ulcer; E11.51 Type 2 diabetes mellitus with diabetic peripheral angiopathy without gangrene; I08.0 Rheumatic disorders of both mitral and aortic valves; D63.0 Anemia in neoplastic disease; D50.9 Iron deficiency anemia, unspecified; K29.50 Unspecified chronic gastritis without bleeding; E53.8 Deficiency of other specified B group vitamins; E27.8 Other specified disorders of adrenal gland; E78.5 Hyperlipidemia, unspecified; I10 Essential (primary) hypertension; E87.5 Hyperkalemia; I44.0 Atrioventricular block, first degree; L89.152 Pressure ulcer of sacral region, stage 2; N13.9 Obstructive and reflux uropathy, unspecified; N32.89 Other specified disorders of bladder; I69.320 Aphasia following cerebral infarction; R56.9 Unspecified convulsions; L98.499 Non-pressure chronic ulcer of skin of other sites with unspecified severity; K59.00 Constipation, unspecified; Z79.02 Long term (current) use of antithrombotics/antiplatelets; Z79.82 Long term (current) use of aspirin; Z79.899 Other long term (current) drug therapy; Z85.05 Personal history of malignant neoplasm of liver; Z85.828 Personal history of other malignant neoplasm of skin; Z87.19 Personal history of other diseases of the digestive system; Z95.5 Presence of coronary angioplasty implant and graft; Z87.891 Personal history of nicotine dependence
CPT/HCPCS: 36410; 36415; 38505; 70450; 70553; 71045; 71046; 71250; 74018; 74176; 76536; 76770; 76857; 76937; 76942; 80048; 80053; 80061; 81001; 81003; 82140; 82525; 82607; 82728; 82746; 83036; 83540; 83550; 83605; 83735; 83880; 83921; 84132; 84443; 84484; 85025; 85027; 85610; 85730; 86850; 86900; 86901; 86920; 87040; 87086; 88305; 88341; 88342; 93005; 94760; 95816; 96360; 99285